=== PATIENT | female | born 1980 | race Caucasian/White ===

== ENCOUNTER 2022-11-15 08:49 | Emergency (ER) | payer OTHER, SELFPAY ==
--- NOTE | ~2022-11-15 | XR_ITS ---
EXAMINATION: XR wrist LT min 3V DATE: 11/15/2022 09:15 INDICATION: Radial sided left wrist pain post fall TECHNIQUE: Posteroanterior, ulnar deviation, oblique, and lateral views of the left wrist were obtain ed. COMPARISON: none FINDINGS: Bone alignment is normal. No fracture. 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 Soft tissues are unremarkable. IMPRESSION: 1. 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 No acute osseous abnormality. Reviewed, dictated and finalized at location B. IMPRESSION: 1. 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 No acute osseou s abnormality.
[2022-11-15 08:57] VITALS: BP 141/87; PULSE 94; RESP 16; TEMP 36.2; O2SAT 99
--- NOTE | 2022-11-15 09:26 | ED.UPPEXIN ---
HPI - Extremity Injury (Upper) General Chief Complaint: Extremity Injury, Upper Stated Complaint: left wrist injury Time Seen by Provider: 11/15/22 09:01 History of Present Illness HPI narrative: Patient slipped and fall will try to get into bed last night, she has some pain to her left wrist, her did put a Michael wrap around it. She has no pain or injury anywhere else. Related Data Allergies Allergy/AdvReac Type Severity Reaction Status Date / Time No Known Allergies Allergy Verified 11/15/22 08:50 Review of Systems Review of Systems: M/S: Left wrist pain SKIN: No abrasions NEURO: Occasional tingling through the fingertips Exam Narrative: EXAMINATION OF ORGAN SYSTEMS/BODY AREAS: Constitutional: Vital signs per nursing GENERAL:[No acute distress, non-toxic appearing.] HEAD: Normal with no signs of head trauma. EYES: EOMI, conjunctiva normal ENT: Hearing grossly intact LUNGS: Nonlabored breathing. HEART: [Regular rate and rhythm] EXT: Normal range of motion with extension and flexion and deviation of wrists, normal lumpia wrapper maker strength, scissoring, ab/dduction of fingers, wrist. Tenderness palpation primarily in the proximal wrist, no snuffbox tenderness, normal radial pulses.. SKIN: [No rashes or lesions.] NEURO: [Alert and oriented x 3. No gross focal sensory or strength deficits.] PSYCH: Normal affect Course Vital Signs Vital signs: Vital Signs Temperature 97.1 F L 11/15/22 08:57 Pulse Rate 94 11/15/22 08:57 Respiratory Rate 16 11/15/22 08:57 Blood Pressure 141/87 H 11/15/22 08:57 Pulse Oximetry 99 11/15/22 08:57 Oxygen Delivery Room Air 11/15/22 08:57 Temperature 97.1 F L 11/15/22 08:57 Pulse Rate 94 11/15/22 08:57 Respiratory Rate 16 11/15/22 08:57 Blood Pressure 141/87 H 11/15/22 08:57 Pulse Oximetry 99 11/15/22 08:57 Oxygen Delivery Room Air 11/15/22 08:57 MDM - Extremity Injury (Upper) MDM Narrative Medical decision making narrative: 42-year-old female presenting with left wrist pain after injury, range of motion and neurovascularly intact, no snuffbox tenderness, only some tenderness to the proximal wrist. No deformity, I have low concern for fracture, x-ray obtained here confirms no fracture. Patient stable for discharge with follow-up to her doctor or orthopedics if not improved or any new or concerning symptoms, patient agreeable with this plan. Discharge Plan Discharge Clinical Impression: Sprain and strain of wrist Patient Disposition: Home, Self-Care Condition: Stable Instructions: Antibiotic Form, Wrist Sprain (ED) Additional Instructions: Please follow up with the orthopedic surgeon in 2 days if you are still having persistent pain or other symptoms; you can always return if your symptoms worsen Follow-up/Referrals: Rosendo Rodríguez MD [Physician] - 2 Days PHYSICIAN,LOAN OFFICER [Non-Staff] -
== END 2022-11-15 09:52 | disposition home or self-care (01) ==
LOC: ANHED 09:28
PROVIDERS: Emergency Provider Emergency Medicine
DX: S63.502A Unspecified sprain of left wrist, initial encounter (principal); S66.912A Strain of unspecified muscle, fascia and tendon at wrist and hand level, left hand, initial encounter; W06.XXXA Fall from bed, initial encounter
CPT/HCPCS: 73110; 99283

== ENCOUNTER 2024-06-13 09:37 | Emergency (ER) | payer BC, OTHER, SELFPAY ==
--- NOTE | 2024-06-13 09:42 | ED_ITS ---
HPI - Skin/Abscess/Foreign Bdy General Chief complaint: Skin/Abscess/Foreign Body Stated complaint: Rash On Body Time Seen by Provider: 06/13/24 09:42 Source: patient Mode of arrival: ambulatory Limitations: no limitations History of Present Illness HPI narrative: Madyson is a 44-year-old female patient presenting to the clinic today with complaints a rash on her body. She reports that she 1st noticed this rash Foy nday. Has recently changed body wash however this was after the rash occurred. Denies any other environmental changes, foods, or medications. She reports that she has been having increased stress. Denies any shortness of breath, chest pain, difficulty breathing, drooling, tongue swelling, or difficulty swallowing. Rash is red and raised and itchy on her arms and legs. She has tried Benadryl and some hydrocortisone cream and this has helped relieve some of the itching. Related Data Home Medications Medication Instructions Recorded Confirmed acyclovir 5 % topical cream 1 applic topical ONCE 11/21/22 04/04/23 (Zovirax) aspirin 81 mg tablet,delayed 81 mg PO DAILY 11/21/22 04/04/23 release (Adult Aspirin Regimen) atorvastatin 40 mg tablet (Lipitor) 40 mg PO DAILY 11/21/22 04/04/23 buprenorphine 8 mg-naloxone 2 mg 1 tablet sublingual TID 11/21/22 04/04/23 sublingual tablet buspirone 15 mg tablet 15 mg PO DAILY 11/21/22 04/04/23 divalproex 250 mg tablet,delayed 250 mg PO Q12H 11/21/22 04/04/23 release duloxetine 60 mg capsule,delayed 60 mg PO DAILY 11/21/22 04/04/23 release escitalopram oxalate 10 mg tablet 10 mg PO DAILY 11/21/22 04/04/23 (Lexapro) eszopiclone 3 mg tablet (Lunesta) 3 mg PO QHS 11/21/22 04/04/23 fexofenadine 180 mg tablet 180 mg PO DAILY 11/21/22 04/04/23 (Robyn Allergy) folic acid 1 mg tablet 1 mg PO DAILY 11/21/22 04/04/23 levothyroxine 137 mcg tablet 137 mcg PO DAILY 11/21/22 04/04/23 (Synthroid) mometasone 50 mcg/actuation nasal 2 spray intranasal DAILY PRN 11/21/22 04/04/23 spray mv-mn-folic 200 mcg-vit K 15 cap PO BID 11/21/22 04/04/23 mcg-lutein 5 mg-zeaxanthin 1 mg capsule (PreserVision AREDS 2 Plus Multivit) nebivolol 5 mg tablet (Bystolic) 5 mg PO DAILY 11/21/22 04/04/23 omeprazole 20 mg capsule,delayed 20 mg PO DAILY 11/21/22 04/04/23 release pilocarpine HCl 5 mg tablet 5 mg PO TID 11/21/22 04/04/23 pregabalin 150 mg capsule (Lyrica) 150 mg PO BID 11/21/22 04/04/23 prochlorperazine maleate 5 mg 5 mg PO Q8H PRN 11/21/22 04/04/23 tablet sumatriptan succinate 100 mg tablet See Rx Instructions PO .COMPLEX 11/21/22 04/04/23 topiramate 50 mg tablet (Topamax) 50 mg PO TID 11/21/22 04/04/23 tretinoin 0.01 % topical gel 1 applic topical QHS 11/21/22 04/04/23 (Retin-A) vitamin E (dl, acetate) 450 mg 450 mg PO DAILY 11/21/22 04/04/23 (1,000 unit) capsule Allergies Allergy/AdvReac Type Severity Reaction Status Date / Time No Known Allergies Allergy Verified 04/04/23 11:45 Review of Systems Review of Systems: Pertinent positives per HPI. Patient denies any fever, chills, headache, visual changes, dizziness, cough, runny nose, sore throat, shortness of breath, chest pain, palpitations, nausea, vomiting, diarrhea, constipation, abdominal pain, or any urinary issues. 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 There is no relevant family history pertinent to the patient complaint. Exam Narrative: General: Well-developed, morbidly obese, in no apparent distress Head: Normocephalic, atraumatic. Cardio: Regular rate and rhythm, s1 and s2 normal, no murmur appreciated. Resp: Clear to auscultation bilaterally, no rhonchi, rales, wheezing or rubs. Integumentary: [place], warm, and dry, red raised itchy hives like rash to bilateral arms and legs Course Course Emergency Course: Portions of this record may have been created with voice recognition software. Level of Care: Express Care Visit Vital Signs Vital signs: Vital Signs Temperature 36.3 C L 06/13/24 09:50 Pulse Rate 73 06/13/24 09:50 Respiratory Rate 16 06/13/24 09:50 Blood Pressure 124/82 06/13/24 09:50 Pulse Oximetry 96 06/13/24 09:50 Oxygen Delivery Room Air 06/13/24 09:50 Temperature 36.3 C L 06/13/24 09:59 Pulse Rate 73 06/13/24 09:59 Respiratory Rate 16 06/13/24 09:59 Blood Pressure 124/82 06/13/24 09:59 Pulse Oximetry 96 06/13/24 09:59 Oxygen Delivery Room Air 06/13/24 09:59 Vital signs reviewed MDM - Skin/Abscess/Foreign Bdy MDM Narrative Medical decision making narrative: At the time of visit patient is resting comfortably on the exam table. Patient appears to be nontoxic. Plan: I suspect patient has hives. She is not in any respiratory distress and denies chest pain. Prescription for prednisone taper dose and Pepcid was sent to the pharmacy. Supportive measures were discussed with the patient and they voiced understanding discharge instructions and agrees to treatment plan. Return precautions reviewed Differential Diagnosis Differential diagnosis: Likely abscess of skin or subcutaneous tissue, viral exanthem, dermatophytosis, urticaria, herpes zoster, allergic reaction to drug, cellulitis, eczema, insect bites, impetigo and contact dermatitis Discharge Plan Discharge Clinical Impression: Acute urticaria Patient Disposition: Home, Self-Care Condition: Stable Instructions: Antibiotic Form, Urticaria (ED) Additional Instructions: Take prednisone and Pepcid as directed Avoid any allergy triggers Avoid hot showers Avoid scratching as this can cause a secondary infection May take benadryl 25-50mg every 6 hours as needed for itching. Follow up with your PCP in 3-5 days if symptoms persist or sooner if they worsen Go to the Emergency Room if symptoms worsen- fever, rash spreading with treatment, shortness of breath, tongue swelling, drooling, or chest pain Prescriptions: New prednisone 10 mg tablet 10 mg PO DAILY Qty: 30 0RF Rx Instructions: 60mg po daily on day 1, 40mg po daily on days 2-4, 30mg po daily on days 5-6, 20mg po daily on days 7-8, 10mg po daily on days 9-10 famotidine [Pepcid] 40 mg tablet 40 mg PO DAILY 10 Days Qty: 10 0RF No Action levothyroxine [Synthroid] 137 mcg tablet 137 mcg PO DAILY omeprazole 20 mg capsule,delayed release(DR/EC) 20 mg PO DAILY mometasone 50 mcg/actuation spray,non-aerosol 2 spray intranasal DAILY PRN Rx Instructions: administer into each nostril topiramate [Topamax] 50 mg tablet 50 mg PO TID sumatriptan succinate 100 mg tablet See Rx Instructions PO .COMPLEX Rx Instructions: take 1 tab at onset of headache; if no relief, may repeat 1 tab after at least 2 hrs; max = 2 tabs/24 hrs PO nebivolol [Bystolic] 5 mg tablet 5 mg PO DAILY fexofenadine [Robyn Allergy] 180 mg tablet 180 mg PO DAILY atorvastatin [Lipitor] 40 mg tablet 40 mg PO DAILY pregabalin [Lyrica] 150 mg capsule 150 mg PO BID aspirin [Adult Aspirin Regimen] 81 mg tablet,delayed release (DR/EC) 81 mg PO DAILY eszopiclone [Lunesta] 3 mg tablet 3 mg PO QHS buprenorphine-naloxone 8-2 mg tablet, sublingual 1 tablet sublingual TID pilocarpine HCl 5 mg tablet 5 mg PO TID acyclovir [Zovirax] 5 % cream 1 applic topical ONCE tretinoin [Retin-A] 0.01 % gel 1 applic topical QHS PreserVision AREDS 2 Plus MV 200 mcg-15 mcg- 5 mg-1 mg capsule PO BID vitamin E (dl, acetate) 450 mg (1,000 unit) capsule 450 mg PO DAILY folic acid 1 mg tablet 1 mg PO DAILY divalproex 250 mg tablet,delayed release (DR/EC) 250 mg PO Q12H prochlorperazine maleate 5 mg tablet 5 mg PO Q8H PRN escitalopram oxalate [Lexapro] 10 mg tablet 10 mg PO DAILY duloxetine 60 mg capsule,delayed release(DR/EC) 60 mg PO DAILY buspirone 15 mg tablet 15 mg PO DAILY meloxicam 15 mg tablet See Rx Instructions .ROUTE .COMPLEX Qty: 90 2RF Dose Instruction: TAKE 1 TABLET BY MOUTH DAILY NEEDED FOR PAIN Rx Instructions: TAKE 1 TABLET BY MOUTH DAILY NEEDED FOR PAIN Follow-up/Referrals: PHYSICIAN,COMMERCIAL ANNOUNCER [Primary Care Provider] - Time of Disposition: 10:00 Quality NIHSS Nursing Documentation ED NIHSS nursing documentation: reviewed/agree
[2024-06-13 09:50] VITALS: BP 124/82; PULSE 73; RESP 16; TEMP 36.3; O2SAT 96
[2024-06-13 09:59] VITALS: BP 124/82; PULSE 73; RESP 16; TEMP 36.3; O2SAT 96
== END 2024-06-13 10:10 | disposition home or self-care (01) ==
PROVIDERS: Emergency Provider Nurse Practitioner Family
DX: L50.9 Urticaria, unspecified (principal)
CPT/HCPCS: 99213; G0463

== ENCOUNTER 2024-06-18 18:43 | Emergency (ER) | payer BC, OTHER, SELFPAY ==
--- NOTE | ~2024-06-18 | XR_ITS ---
XR forearm RT 2V Ordering provider: Donte Decker MD History: . pain swelling . Comparison: None. FINDINGS: BONES: No acute fracture or dislocation. JOINT SPACES: Normal. SOFT TISSUES: Normal. IMPRESSION: No acute osseous abnormality right forearm. Reviewed, dictated and finalized at location A. ERCIAL CRABBER
--- NOTE | ~2024-06-18 | XR_ITS ---
XR shoulder RT min 2V Ordering provider: Donte Decker MD History: . pain . Comparison: None. FINDINGS: BONES: No acute fracture or dislocation. JOINT SPACES: The acromioclavicular joint is normal. The glenohumeral joint is normal. SOFT TISSUES: Normal. IMPRESSION: No acute osseous abnormality right shoulder. Reviewed, dictated and finalized at location A. GAGE PROFESSIONAL
--- NOTE | ~2024-06-18 | US_ITS ---
RIGHT UPPER EXTREMITY VENOUS ULTRASOUND Ordering provider: Donte Decker MD History: . pain swelling eval for dvt . Comparison: None. FINDINGS: --JUGULAR: Patent and free of thrombus. Normal compressibility, phasic flow and augmentation. --SUBCLAVIAN: Patent and free of thrombus. Normal compressibility, phasic flow and augmentation. --AXILLARY: Patent and free of thrombus. Normal compressibility, phasic flow and augmentation. --BRACHIAL: Patent and free of thrombus. Normal compressibility, phasic flow and augmentation. --CEPHALIC: Patent and free of thrombus. Normal compressibility, phasic flow and augmentation. --BASILIC: Patent and free of thrombus. Normal compressibility, phasic flow and augmentation. --RADIAL: Patent and free of thrombus. Normal compressibility, phasic flow and augmentation. --ULNAR: Patent and free of thrombus. Normal compressibility, phasic flow and augmentation. IMPRESSION: Negative right upper extremity venous US. No deep vein thrombosis. Reviewed, dictated and finalized at location A. NESS OPERATIONS CONSULTANT
[2024-06-18 19:04] VITALS: BP 132/80; PULSE 92; RESP 17; TEMP 36.4; O2SAT 95
[2024-06-18] MEDS: KETOROLAC 30 MG/ML VIAL (*BKC) IM (22:00)
--- NOTE | 2024-06-18 22:19 | ED_ITS ---
HPI - General Adult General Chief complaint: Extremity Injury, Upper Stated complaint: R arm pain unknown injury Time Seen by Provider: 06/18/24 21:04 History of Present Illness HPI narrative: Patient 44-year-old female who presents emergency department chief complaint of right forearm pain. Patient reports started having pain yesterday reports that it is distal forearm just proximal to the wrist the patient reports no trauma reports the pain is worse with movement and worse with palpation. The patient reports no redness does feel like it may be swollen in that area Related Data Home Medications Medication Instructions Recorded Confirmed acyclovir 5 % topical cream 1 applic topical ONCE 11/21/22 06/13/24 (Zovirax) aspirin 81 mg tablet,delayed 81 mg PO DAILY 11/21/22 06/13/24 release (Adult Aspirin Regimen) atorvastatin 40 mg tablet (Lipitor) 40 mg PO DAILY 11/21/22 06/13/24 buprenorphine 8 mg-naloxone 2 mg 1 tablet sublingual TID 11/21/22 06/13/24 sublingual tablet buspirone 15 mg tablet 15 mg PO DAILY 11/21/22 06/13/24 divalproex 250 mg tablet,delayed 250 mg PO Q12H 11/21/22 06/13/24 release duloxetine 60 mg capsule,delayed 60 mg PO DAILY 11/21/22 06/13/24 release eszopiclone 3 mg tablet (Lunesta) 3 mg PO QHS 11/21/22 06/13/24 fexofenadine 180 mg tablet 180 mg PO DAILY 11/21/22 06/13/24 (Robyn Allergy) levothyroxine 137 mcg tablet 137 mcg PO DAILY 11/21/22 06/13/24 (Synthroid) mometasone 50 mcg/actuation nasal 2 spray intranasal DAILY PRN 11/21/22 06/13/24 spray Shortness Of Breath Or Wheezing mv-mn-folic 200 mcg-vit K 15 1 cap PO BID 11/21/22 06/13/24 mcg-lutein 5 mg-zeaxanthin 1 mg capsule (PreserVision AREDS 2 Plus Multivit) nebivolol 5 mg tablet (Bystolic) 5 mg PO DAILY 11/21/22 06/13/24 omeprazole 20 mg capsule,delayed 20 mg PO DAILY 11/21/22 06/13/24 release pilocarpine HCl 5 mg tablet 5 mg PO TID 11/21/22 06/13/24 pregabalin 150 mg capsule (Lyrica) 150 mg PO BID 11/21/22 06/13/24 prochlorperazine maleate 5 mg 5 mg PO Q8H PRN Nausea And Vomiting 11/21/22 06/13/24 tablet sumatriptan succinate 100 mg tablet See Rx Instructions PO .COMPLEX 11/21/22 06/13/24 topiramate 50 mg tablet (Topamax) 50 mg PO TID 11/21/22 06/13/24 tretinoin 0.01 % topical gel 1 applic topical QHS 11/21/22 06/13/24 (Retin-A) vitamin E (dl, acetate) 450 mg 450 mg PO DAILY 11/21/22 06/13/24 (1,000 unit) capsule atogepant 60 mg tablet (Qulipta) mg 06/13/24 cyclobenzaprine 10 mg tablet 10 mg DIRECTED 06/13/24 06/13/24 erenumab-aooe 70 mg/mL 70 mg subcut DIRECTED 06/13/24 06/13/24 subcutaneous auto-injector (Aimovig Autoinjector) hydroxyzine pamoate 50 mg capsule 50 mg DIRECTED 06/13/24 06/13/24 trazodone 100 mg tablet 100 mg DIRECTED 06/13/24 06/13/24 Allergies Allergy/AdvReac Type Severity Reaction Status Date / Time No Known Allergies Allergy Verified 06/18/24 20:57 Review of Systems Review of Systems: A 10 system review of systems was completed on the patient and is negative except for what is stated in the HPI. Nursing and ancillary documentation was reviewed. 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 HEAD: Normocephalic, atraumatic. EYES: PERRLA and EOMI. ENT: Nares clear, no rhinorrhea or epistaxis. Mucous membranes moist. NECK: Supple. CHEST: Clear to auscultation. No respiratory distress. HEART: Regular rate and rhythm. No murmur heard. Normal peripheral pulses. ABDOMEN: Soft, nontender, nondistended, normal active bowel sounds. EXTREMITIES: Normal range of motion there is tenderness to palpation the right forearm. No edema. SKIN: Warm, dry, no rash. NEURO: No focal deficits. Alert and oriented x3. PSYCH: Normal mood and affect. Course Vital Signs Vital signs: Vital Signs Temperature 36.4 C 06/18/24 19:04 Pulse Rate 92 06/18/24 19:04 Respiratory Rate 17 06/18/24 19:04 Blood Pressure 132/80 06/18/24 19:04 Pulse Oximetry 95 06/18/24 19:04 Temperature 36.4 C 06/18/24 19:04 Pulse Rate 92 06/18/24 19:04 Respiratory Rate 17 06/18/24 19:04 Blood Pressure 132/80 06/18/24 19:04 Pulse Oximetry 95 06/18/24 19:04 Medical Decision Making [facility] Narrative Medical decision making narrative: Differential diagnosis includes DVT, fracture Plain film x-ray showed no evidence of fracture or evidence of acute abnormality Ultrasound of the upper extremity showed no evidence of T Vital Signs Vital Signs: Vital Signs Temperature 36.4 C 06/18/24 19:04 Pulse Rate 92 06/18/24 19:04 Respiratory Rate 17 06/18/24 19:04 Blood Pressure 132/80 06/18/24 19:04 Pulse Oximetry 95 06/18/24 19:04 Temperature 36.4 C 06/18/24 19:04 Pulse Rate 92 06/18/24 19:04 Respiratory Rate 17 06/18/24 19:04 Blood Pressure 132/80 06/18/24 19:04 Pulse Oximetry 95 06/18/24 19:04 Discharge Plan Discharge Clinical Impression: Pain in right forearm Patient Disposition: Home, Self-Care Condition: Stable Instructions: Antibiotic Form, Arm Pain (ED) Prescriptions: New meloxicam 15 mg tablet 15 mg PO DAILY Qty: 14 0RF No Action prednisone 10 mg tablet 10 mg PO DAILY Qty: 30 0RF Rx Instructions: 60mg po daily on day 1, 40mg po daily on days 2-4, 30mg po daily on days 5-6, 20mg po daily on days 7-8, 10mg po daily on days 9-10 famotidine [Pepcid] 40 mg tablet 40 mg PO DAILY 10 Days Qty: 10 0RF cyclobenzaprine 10 mg tablet 10 mg DIRECTED hydroxyzine pamoate 50 mg capsule 50 mg DIRECTED trazodone 100 mg tablet 100 mg DIRECTED Aimovig Autoinjector 70 mg/mL auto-injector 70 mg SUBCUT DIRECTED Qulipta 60 mg tablet levothyroxine [Synthroid] 137 mcg tablet 137 mcg PO DAILY omeprazole 20 mg capsule,delayed release(DR/EC) 20 mg PO DAILY mometasone 50 mcg/actuation spray,non-aerosol 2 spray intranasal DAILY PRN (Reason: Shortness Of Breath Or Wheezing) Rx Instructions: administer into each nostril topiramate [Topamax] 50 mg tablet 50 mg PO TID sumatriptan succinate 100 mg tablet See Rx Instructions PO .COMPLEX Rx Instructions: take 1 tab at onset of headache; if no relief, may repeat 1 tab after at least 2 hrs; max = 2 tabs/24 hrs PO nebivolol [Bystolic] 5 mg tablet 5 mg PO DAILY fexofenadine [Robyn Allergy] 180 mg tablet 180 mg PO DAILY atorvastatin [Lipitor] 40 mg tablet 40 mg PO DAILY pregabalin [Lyrica] 150 mg capsule 150 mg PO BID aspirin [Adult Aspirin Regimen] 81 mg tablet,delayed release (DR/EC) 81 mg PO DAILY eszopiclone [Lunesta] 3 mg tablet 3 mg PO QHS buprenorphine-naloxone 8-2 mg tablet, sublingual 1 tablet sublingual TID pilocarpine HCl 5 mg tablet 5 mg PO TID acyclovir [Zovirax] 5 % cream 1 applic topical ONCE tretinoin [Retin-A] 0.01 % gel 1 applic topical QHS PreserVision AREDS 2 Plus MV 200 mcg-15 mcg- 5 mg-1 mg capsule 1 cap PO BID vitamin E (dl, acetate) 450 mg (1,000 unit) capsule 450 mg PO DAILY divalproex 250 mg tablet,delayed release (DR/EC) 250 mg PO Q12H prochlorperazine maleate 5 mg tablet 5 mg PO Q8H PRN (Reason: Nausea And Vomiting) duloxetine 60 mg capsule,delayed release(DR/EC) 60 mg PO DAILY buspirone 15 mg tablet 15 mg PO DAILY meloxicam 15 mg tablet See Rx Instructions .ROUTE .COMPLEX Qty: 90 2RF Dose Instruction: TAKE 1 TABLET BY MOUTH DAILY NEEDED FOR PAIN Rx Instructions: TAKE 1 TABLET BY MOUTH DAILY NEEDED FOR PAIN Follow-up/Referrals: PHYSICIAN,FLORAL DESIGN TEACHER [Primary Care Provider] - Toño Cortes MD [Physician] - Time of Disposition: 22:23
[2024-06-18] MEDS: MELOXICAM 7.5 MG TABLET 15 MG PO (22:52)
[2024-06-18 22:54] VITALS: BP 142/89; PULSE 83; RESP 16; TEMP 36.5; O2SAT 98
== END 2024-06-18 22:55 | disposition home or self-care (01) ==
PROVIDERS: Emergency Provider Emergency Medicine
DX: M79.631 Pain in right forearm (principal); Z90.49 Acquired absence of other specified parts of digestive tract; Z98.84 Bariatric surgery status; Z79.899 Other long term (current) drug therapy
CPT/HCPCS: 73030; 73090; 93971; 96372; 99284; A9270; J1885

== ENCOUNTER 2024-09-12 08:13 | Outpatient (CLI) | payer BC, OTHER, SELFPAY | END 2024-09-12 08:14 | disposition home or self-care (01) | LOC: ANHIMG 08:20 | PROVIDERS: Visit Provider Internal Medicine | DX: M79.642 Pain in left hand (principal); M79.641 Pain in right hand; M35.00 Sjogren syndrome, unspecified | CPT/HCPCS: 73130 ==

== ENCOUNTER 2024-09-26 05:56 | Emergency (ER) | payer BC, SELFPAY ==
--- NOTE | ~2024-09-26 | CT_ITS ---
CT of the Abdomen and Pelvis: Indication: Abdominal pain Technique: 2.5 mm axial scans were obtained through the abdomen and pelvis following intravenous adm inistration of 100 cc of Omnipaque 350. Dose reduction technique was used on this scan by utilizing a utomated exposure control and iterative reconstruction technique. The dose-length product (DLP) was 1 482.88 mGy-cm. Findings: Scans through the lung bases are unremarkable. Intrahepatic and extra hepatic biliary dilatation may be related to prior cholecystectomy. No hepatic parenchymal mass evident. The spleen, pancreas, adrenals and kidneys are within normal limits. No e vidence of aortic aneurysm. No lymphadenopathy. No bowel obstruction or bowel wall thickening. There is evidence of prior bariatric surgery or possib le fundoplication. There is no evidence to suggest acute appendicitis. Small ventral fat-containing h ernia present superior to the umbilicus. Small fat-containing umbilical hernia also present. Images through the pelvis were performed. Urinary bladder unremarkable. No adnexal mass seen. Impression: Small ventral fat-containing hernias, as above. Intrahepatic and extra hepatic biliary dilatation is likely related to prior cholecystectomy. Correla te clinically. Reviewed, dictated and finalized at [facility]. Impression: Small ventral fat-containing hernias, as above. Intrahepatic and extra hepatic biliary dilatation is likely related to prior ch olecystectomy. Correlate clinically.
--- OUTSIDE RECORDS SUMMARY | 2024-09-26 05:58 | XMS_ITS | Encounter Summary ---
Author Organization [facility] Address [address] [place] [id number] Care Team Providers Care Cook Chief Name Role Phone Robert García MD Primary Care Provider + Encounter Details Date Type Department Care Team (Late Contact Info) Description 01/22/2024 [place] Message Enc [facility] - [address], [address] [place] [phone] [employer], [facility] Provider prescription Social History Tobacco Use Types Packs/Day Years Used Date Smoking Tobacco: Never Smokeless Tobacco: Never Alcohol Use Standard Drinks/Week Comments Never 0 (1 standard drink = 0.6 oz pur e alcohol) AUDIT-C Answer Date Recorded Q1: How often do you have a drink containing alc ohol? 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 Gender Identity Not on file Sexual Orientation Not on file documented as of this encounter Plan of Treatment Upcoming Encounters Date Type Department Care Team (Late Contact Info) Description 12/03/2024 10:00 AM CDT Office Visit [facility] - [address], [address] [place] [phone] Abiodun Red MD [address] [place] [address] documented as of this encounter Visit Diagnoses Not on filedocumented in this encounter Additional Health Concerns Assessment Noted Time PHQ-9 Depression Total Score: 7 06/02/20 22 9:57 AM REGIONAL EXTENSION SERVICE SPECIALIST documented as of this encounter Care Teams Cook Chief Relationship Specialty Start Date End Date Robert García MD 3 [facility] [place] [address] [place] [phone] PCP - General 08/17/23 documented as of this encounter
--- OUTSIDE RECORDS SUMMARY | 2024-09-26 05:58 | XMS_ITS | Data Portability ---
Author Organization [place] - [facility] [place] [facility] Address [address] [place] [address] Care Team Providers Care Process Development Engineer Name Role Phone TIMBO Primary Care Provider [phone] Assessment Encounter Date Assessment Date Assessment LastModified by Organization Details LastModified Time 02/06/2023 02/06/2023 This document was scribed by FARAZ Hayes Not available 02/06/2023 18:34:10 06/04/2023 06/04/2023 Patient Examined by FARAZ Hayes, Also Documentation reviewed and approved by supervising physician sophie Not available 06/04/2023 10:15:45 12/06/2023 12/06/2023 Patient Examined by FARAZ Hayes, Also Documentation reviewed and approved by supervising physician sharad Not available 10/14/2023 16:03:12 Plan of Treatment Reminders Order Date Submit Date Provider Last Modified By Organization Details Last Modified Time Details Appointments ESTABLISH ED PATIENT DETAILED 2024 11:00A M Sixto Mcintyre i, MD Not available Not available Not available Lab None recorded. Referral None recorded. Procedures None recorded. Surgeries None recorded. Imaging None recorded. Medication Orders Zetia 10 mg tablet 2022 023 [facility], [address] [place] [address], [id number], 06/04/2023 10:27:07 Lipitor 80 mg tablet 2022 023 [facility] #[id number], [address], [place], [id number], 06/04/2023 10:27:11 Bystolic 5 mg tablet 2022 023 [facility], [address] [place] [address], [id number], 06/04/2023 10:27:08 Lasix 40 mg tablet 2022 023 [facility], [address] [place] [address], [id number], 06/04/2023 10:27:08 Lasix 20 mg tablet 2022 023 [facility] #[id number], [address], [place], [phone], 02/06/2023 18:37:03 Patient TargetsNo targets recorded. Patient Instructions Encounter Date Encounter Id Patient Instructions Last Modified By Organization Details Last Modified Time 06/04/2023 [id number] Low cholesterol diet advised Low sodium diet advised. eyassin Not available 06/04/2023 10:26:59 12/06/2023 [id number] Low cholesterol diet advised Low sodium diet advised. eyassin Not available 12/06/2023 10:38:58 Reason for Referral None Reported. Results Created Date Observation Date Name Description Value Unit Range Abnormal Flag Note LastModifiedBy Organization Detail LastModifiedTime 02/08/2002/06/2023 elect julianne lozagr am No observ ation record ed. [email or web address] Not Available 2022 11:05:46 05/03/2003/24/2023 fabby can cardi olite stres s test (PROC ) No observ ation record ed. [email or web address] Not Available 2022 14:51:42 07/27/1907/23/2023 , echo ardio gram No observ ation record ed. est [facility] [address], [place], [address], 08/05/2023 14:55:01 12/11/19 24 12/06/2023 elect rocar diogr am No observ ation record ed. [email or web address] Not Available 2023 18:13:40 06/03/20 24 06/03/2024 elect julianne mcmahon am No observ ation record ed. [email or web address] Not Available 2023 18:04:05 Result Notes None recorded. Problems Name Problem SNOMED Code Status Onset Date Resolution Date Notes Provider Name and Address Organization Details Recorded Time Edema 368088960 Active 2022 Cooper Mesto null, [place] - [facility] 3 12:39:45 Atypical chest pain 329622831 Active 2022 Cooper [place] null, [place] - [facility] 3 12:39:54 Dyspnea on exertion 29615930 Active 2022 Cooper [place] null, [place] - [facility] 3 12:40:00 Dyslipidemia 328730027 Active 2023 Cooper [place], [place] - [facility] 4 19:58:53 Essential hypertension 92331330 Active 2023 Cooper [place], [place] - [facility] 4 19:59:11 History of cerebrovascula r accident 027360297 Active 2023 Cooper [place] null, [place] - [facility] 4 19:59:27 Problem Notes None recorded. Procedures Surgical History Date Name Laterality Status Provider Name and Address Organization Details Recorded Time operation on stomach completed Kenneth Messally [place] - [facility] 05/25/2023 12:52:55 Imaging Results Imaging Date Name Status LastModified by Organization Details LastModified Time 02/06/2023 electrocardiogram completed Informa tion not available 02/07/2023 11:05:46 03/24/2023 lexiscan cardiolite stress test (PROC) completed Information not available 05/03/2023 14:51:42 07/23/2023 , echocardiogram completed [facility] [address], [place], [address], 08/05/2023 14:55:01 12/06/2023 electrocardiogram completed [email or web address] Informa tion not available 12/18/2023 18:13:40 06/03/2024 electrocardiogram completed Informa tion not available 06/03/2024 18:04:05 Procedure Notes None recorded. Medical Equipment None Reported. Allergies No known drug allergies Medications Name Sig Start Date Stop Date Status Note LastModified by Organization Details LastModified Time cyclobenzap rine 10 mg tablet TAKE 1 TABLET BY MOUTH THREE TIMES DAILY NEEDED FOR SPASM active Not Available Not Available No t Available furosemide 40 mg tablet TAKE 1 TABLET BY MOUTH EVERY DAY active Not Available Not Available No t Available atorvastati n 40 mg tablet 05/25 completed Not Available Not Available Not Available levothyroxi ne 137 mcg tablet TAKE 1 TABLET BY MOUTH EVERY MORNING active Not Available Not Available No t Available pilocarpine 5 mg tablet TAKE 1 TABLET BY MOUTH THREE TIMES DAILY active Not Available Not Available No t Available prednisone 10 mg tablet TAKE 1 TABLET BY MOUTH TWICE DAILY FOR 10 DAYS active Not Available Not Available No t Available doxycycline hyclate 100 mg capsule TAKE 1 CAPSULE BY MOUTH TWICE DAILY WITH FOOD active Not Available Not Available No t Available divalproex 250 mg tablet,neeta yed release 05/25 completed Not Available Not Available Not Available trazodone 50 mg tablet TAKE 1 TABLET BY MOUTH AT BEDTIME FOR 1 WEEK 06/02 completed Not Available Not Available Not Available azithromyci n 250 mg tablet 10/13 completed Not Available Not Available Not Available sumatriptan 100 mg tablet TAKE 1 TABLET BY MOUTH TWICE DAILY NEEDED FOR MIGRAINE. TAKE 1 TABLET BY MOUTH AT ONSET AND 1 TABLET 2 HOURS LATER. MAX OF 2 TABLETS IN 24 HOURS active Not Available Not Available No t Available prochlorper azine maleate 5 mg tablet active Not Available Not Available No t Available Lipitor 80 mg tablet Take 1 tablet every day by oral route. 2024 active Not Available Not Available Not Avai lable meloxicam 15 mg tablet TAKE 1 TABLET BY MOUTH DAILY active Not Available Not Available No t Available famotidine 40 mg tablet TAKE 1 TABLET BY MOUTH DAILY FOR 10 DAYS active Not Available Not Available No t Available methylpredn isolone 4 mg tablet active Not Available Not Available No t Available hydroxyzine pamoate 50 mg capsule TAKE 1 CAPSULE BY MOUTH FOUR TIMES DAILY NEEDED FOR ANXIETY active Not Available Not Available No t Available phentermine 37.5 mg tablet TAKE 1 TABLET BY MOUTH DAILY active Not Available Not Available No t Available aspirin 81 mg tablet,neeta yed release active Not Available Not Available Not Available phentermine 30 mg capsule TAKE 1 CAPSULE BY MOUTH EVERY DAY active Not Available Not Available No t Available ketorolac 10 mg tablet TAKE 1 TABLET BY MOUTH EVERY 6 HOURS FOR 2 DAYS NEEDED FOR PAIN active Not Available Not Available No t Available propranolol 10 mg tablet active Not Available Not Available Not Available amitriptyli ne 25 mg tablet active Not Available Not Available Not Available prednisolon e acetate 1 % eye drops,suspe nsion active Not Available Not Available Not Available Vanicream topical active Not Available Not Available Not Available trazodone 100 mg tablet TAKE 1 TABLET BY MOUTH AT BEDTIME AFTER 50 MG DOSE COMPLETE active Not Available Not Available No t Available cyanocobala min (vit B-12) 1,000 mcg/mL injection solution active Not Available Not Available Not Available tacrolimus 0.1 % topical ointment APPLY TO AFFECTED AREAS OF THE FACE ONE TO TWO TIMES DAILY UNTIL CLEAR. THEN USE NEEDED FOR FLARES. active Not Available Not Available No t Available lidocaine 5 % topical patch APPLY 1 PATCH TO THE AFFECTED AREA DIRECTED. NO LONGER THAN 12 HOURS PER DAY active Not Available Not Available No t Available omeprazole 20 mg capsule,del ayed release TAKE 1 CAPSULE BY MOUTH EVERY DAY active Not Available Not Available No t Available mupirocin 2 % topical ointment active Not Available Not Available Not Available zolpidem 5 mg tablet active Not Available Not Available No t Available furosemide 20 mg tablet TAKE 1 TABLET BY MOUTH EVERY DAY active Not Available Not Available No t Available clobetasol 0.05 % topical ointment APPLY TO THE AFFECTED AREA OF HANDS 1 TO 2 TIMES DAILY IN ROTATION WITH MUPIROCIN FOR NO MORE THAN 2 WEEKS. TAKE SMALL BREAK AND RESUME. active Not Available Not Available No t Available zolpidem 10 mg tablet active Not Available Not Available No t Available methylpredn isolone 4 mg tablets in a dose pack FOLLOW PACKAGE DIRECTION S 06/02 completed Not Available Not Available Not Available amoxicillin 875 mg-potassiu m clavulanate 125 mg tablet 06/03 completed Not Available Not Available Not Available buspirone 15 mg tablet TAKE ONE TABLET BY MOUTH THREE TIMES DAILY active Not Available Not Available No t Available hydroxyzine pamoate 25 mg capsule TAKE 1 CAPSULE BY MOUTH FOUR TIMES DAILY NEEDED FOR ANXIETY active Not Available Not Available No t Available Mucinex 600 mg tablet, extended release active Not Available Not Available Not Available escitalopra m 10 mg tablet active Not Available Not Available Not Available escitalopra m 20 mg tablet 05/25 completed Not Available Not Available Not Available ezetimibe 10 mg tablet Take 1 tablet every day by oral route. active Not Available Not Available No t Available divalproex ER 250 mg tablet,exte nded release 24 hr active Not Available Not Available Not Available buprenorphi ne 8 mg-naloxone [address] 1 TABLET UNDER TONGUE THREE TIMES DAILY FOR PAIN active Not Available Not Available No t Available Restasis 0.05 % eye drops in a dropperette INSTILL 1 DROP BOTH EYES TWICE DAILY active Not Available Not Available No t Available aripiprazol e 5 mg tablet TAKE 1 TABLET BY MOUTH EVERY MORNING active Not Available Not Available No t Available topiramate 50 mg tablet TAKE 1 TABLET BY MOUTH TWICE DAILY active Not Available Not Available No t Available duloxetine 30 mg capsule,del ayed release active Not Available Not Available Not Available duloxetine 60 mg capsule,del ayed release TAKE 1 CAPSULE BY MOUTH EVERY DAY active Not Available Not Available No t Available eszopiclone 3 mg tablet active Not Available Not Available Not Available eszopiclone 2 mg tablet TAKE 1 TABLET BY MOUTH EVERY DAY AT BEDTIME NEEDED FOR INSOMNIA active Not Available Not Available No t Available eszopiclone 1 mg tablet TAKE 1 TABLET BY MOUTH EVERY DAY AT BEDTIME X 1 WEEK. 2ND WEEK TAPER DOSE 06/02 completed Not Available Not Available Not Available pregabalin 150 mg capsule TAKE 1 CAPSULE BY MOUTH 3 TIMES A DAY NEEDING FOR NERVE PAIN active Not Available Not Available No t Available nebivolol 5 mg tablet TAKE 1 TABLET BY MOUTH EVERY DAY active Not Available Not Available No t Available buprenorphi ne 8 mg-naloxone 2 mg sublingual film DISSOLVE 1 FILM SUBLINGUA LLY THREE TIMES DAILY active Not Available Not Available No t Available Allergy Relief (fexofenadi ne) 180 mg tablet active Not Available Not Available Not Available Aimovig Autoinjecto r 70 mg/mL subcutaneou s auto-inject or ADMINISTE R 1 ML UNDER THE SKIN EVERY 30 DAYS active Not Available Not Available No t Available Nurtec ODT 75 mg disintegrat ing tablet DISSOLVE ONE TABLET BY MOUTH NEEDED FOR MIGRAINE active Not Available Not Available No t Available ID NOW COVID-19 Test Kit TEST DIRECTED TODAY active Not Available Not Available No t Available Qulipta 60 mg tablet active Not Available Not Available No t Available Vitals Date Recorded Body height Body mass index (BMI) Body weight Heart rate Respiratory rate Oxygen saturation Oxygen saturation in Arterial blood by Pulse oximetry Provider Name and Address Organization Details Last Updated DateTime 3 177.8 cm 45.6 kg/m2 680130. 37 g 102 /min 18 /min 93 % 93 % Zen Roche [facility] 3 18:10:41 Date Recorded Body height Heart rate Oxygen saturation Oxygen saturation in Arterial blood by Pulse oximetry Body mass index (BMI) Body weight Systolic blood pressure Diastolic blood pressure Provider Name and Address Organization Details Last Updated DateTime 3 177.8 cm 84 /min 87 % 87 % 42.9 kg/m2 128733. 12 g 139 mm[Hg] 86 mm[Hg] Fay Carrero [facility] 3 09:40:23 Date Recorded Body height Body mass index (BMI) Body weight Heart rate Oxygen saturation Oxygen saturation in Arterial blood by Pulse oximetry Systolic blood pressure Diastolic blood pressure Provider Name and Address Organization Details Last Updated DateTime 4 177.8 cm 41.1 kg/m2 861456. 93 g 76 /min 97 % 97 % 108 mm[Hg] 72 mm[Hg] Kady Lolly [facility] 4 10:18:10 Date Recorded Body height Body mass index (BMI) Body weight Heart rate Oxygen saturation Oxygen saturation in Arterial blood by Pulse oximetry Systolic blood pressure Diastolic blood pressure Provider Name and Address Organization Details Last Updated DateTime 4 177.8 cm 40.3 kg/m2 121698. 46 g 107 /min 95 % 95 % 151 mm[Hg] 97 mm[Hg] Fay Carrero [facility] 4 11:41:36 Social History None recorded. Functional Status None recorded. Mental Status None recorded. Family History Nothing Reported. Medical History No medical history recorded. Gynecological HistoryNo gynecological history recorded. Obstetrics History GPAL:G 0 P 0 0 0 0 Past Encounters Encounter ID Performer Location Encounter Start Date Encounter Closed Date Diagnosis/Indication Diagnosis SNOMED-CT Code Diagnosis ICD10 Code Diagnosis Note [id number] Sixto Feldman MD [place] [facility] [address] [place] [address] 02/06/2023 17:16:06 02/06/2023 18:36:32 Edema 140094940 R60.9 will start lasix 20 mg dailywe might consider jardiance in the future Atypical chest pain 1025 12208 R07.89 Treadmill Myoview Stress test, has high [place] Risk score. Has Known CAD, or CAD risk equivalent . To look for any ischemia. Dyspnea on exertion 6084 5006 R06.09 will do echo to the see the structure of the heart [id number] [facility] [place] [address] 06/04/2023 09:27:03 06/04/2023 10:31:41 Edema 990703609 R60.9 continue lasix 40 mg dailywe might consider jardiance in the future Dyspnea on exertion 6084 5006 R06.09 will do echo to the see the structure of the heart Atypical chest pain 1025 21491 R07.89 negative stress test 3contin ue with monitoring continue with baby aspirin Dyslipidemia 536081476 E 78.5 *Last LDL was 107 done on 03/29/23.P t takes lipitor 80 mg daily.will start her on zetia 10 mg dailyTG Is 223 done 03/2023 add fish oil BID daily Essential hypertension 13212984 I10 BP mildly elevated today, she will bring number with her next timecontin ue with bystolic 5 mg daily History of cerebrovascular accident 187215093 Z86.73 continue with aspirin [id number] [facility] [place] [address] 12/06/2023 10:00:34 12/06/2023 10:41:39 Edema 674293577 R60.9 continue lasix 40 mg daily Dyslipidemia 199691718 E 78.5 *Last LDL was 107 done on 03/29/23.P t takes lipitor 80 mg daily.cont inue with zetia 10 mg dailyTG Is 223 done 03/2023 continue fish oil BID dailyrepea t lipid panel Essential hypertension 51682849 I10 BP is well controlled continue with bystolic 5 mg daily History of cerebrovascular accident 879402606 Z86.73 continue with aspirin [id number] Sixto Feldman MD [place] [facility] [place] [address] 06/03/2024 11:18:39 06/03/2024 12:28:23 Edema 614273921 R60.9 continue lasix 40 mg daily Dyslipidemia 769589743 E 78.5 *Last LDL was 107 done on 03/29/23.P t takes lipitor 80 mg daily.cont inue with zetia 10 mg dailyTG Is 223 done 03/2023 continue fish oil BID dailyrepea t lipid panel Essential hypertension 06429312 I10 BP is well controlled continue with bystolic 5 mg daily History of cerebrovascular accident 766438168 Z86.73 continue with aspirin Health Concerns Section Related Observation LastModified by Organization Detai ls LastModified Time None Recorded Concern Status LastModified by Organization Details LastModified Time None Recorded Advance Directives Directive None Recorded Payers Encounter Date Sequence Insurance Name Policy Number Policy Wilks Covered Member ID Wilks Member ID Guarantor Name 02/06/2023 2 [employer] () Holly Debby [id number] Holly RandallDebby 06/04/2023 2 [employer] () Holly Debby [id number] Holly RandallDebby 06/04/2023 1 [place] [id number] Damir S Debby [id number] Holly RandallDebby 12/06/2023 2 [employer] () Holly Debby [id number] Holly Debby 12/06/2023 1 [place] [id number] Damir S Debby [id number] Holly Debby 06/03/2024 2 [employer] () Holly Debby [id number] Holly RandallDebby 06/03/2024 1 [place] [id number] Damir S Debby [id number] Holly Black Notes Date Note Type Note Provider Name and Address Organization Details Recorded Time 02/06/2023 text/html 02/07/23CC: Mikiee r exremity edemaHolly BLACK is 42 years-old Female with h/o stroke (2012) , S/p gastric bypass surgery (2008) , hypertension, hyperlipidemia, PFO s/p closure , anxiety, TONY on CPAP, hypothyroidism, AMARJIT, depression, was referred for cardiac evaluation due to Edema. She is here due to lower extremities edema. She occasional chest pain and dyspnea on exertion. *Last LDL was done on .Pt takes lipitor 40 mg daily. Today reports:Denies chest pain.Denies shortness of breath at rest. Has mild dyspnea on exertion.No orthopnea. No PNDs.Denies heart palpitations.Denies dizziness. Denies syncope or near syncope.Yes ankle or leg edema. will start lasix.No major bleeding events.No reported side effects from medications. Taking medications as prescribed with no missed doses.Denies snoring, daytime somnolence and AM headache.*Last LDL was done on .Pt takes. Sixto Feldman MD [address] [place], [address], [facility] 02/06/2023 18:37:01 06/04/2023 text/html 05/31/23CC : Car diac follow up dyspnea on exertionHolly BLACK is 43 years-old Female with h/o stroke (2012) , S/p gastric bypass surgery (2008) , hypertension, hyperlipidemia, PFO s/p closure , anxiety, TONY on CPAP, hypothyroidism, AMARJIT, depressionis here for follow up. She was last seen in the clinic on 02/06/23, since then she is doing well. Her stress test is negative. *Last LDL was 107 done on 03/29/23.Pt takes lipitor 80 mg daily. She denies ER visits and hospitalizations since she was last seen.*Last LDL was 107 done on 03/29/23.Pt takes lipitor 40 mg daily. Today reports:Denies chest pain.Denies shortness of breath at rest. Has mild dyspnea on exertion.No orthopnea. No PNDs.Denies heart palpitations.Denies dizziness. Denies syncope or near syncope.Yes ankle or leg edema. on lasix.No major bleeding events.No reported side effects from medications. Taking medications as prescribed with no missed doses.Denies snoring, daytime somnolence and AM headache.*Last LDL was 107 done on 03/29/23.Pt takes atorvastatin 80 mg. 3CMP-NA 142 K 3.9 BUN 8 CR 0.70 BUN 11 GL 93 CA 9.7,CK Total-159,CJID5D-8.3,L IPID-CHOL 187 HDL 42 LDL 107 TRIG 223 *Had Adequate Stress with Lexiscan on 03/24/23 with Normal LV systolic function. LVEF: 60%. Previously:Last visit came for cardiac evaluation due to Edema. She occasional with chest pain and dyspnea on exertion. JO [facility] - [facility] 06/04/2023 10:27:10 12/06/2023 text/html 12/06/23CC : Car diac follow up chest painHolly BLACK is 43 years-old Female with h/o stroke (2012) , S/p gastric bypass surgery (2008) , hypertension, hyperlipidemia, PFO s/p closure , stroke (2012) anxiety, TONY on CPAP, hypothyroidism, AMARJIT, depression is here for 3 month follow up with ECHO results She was last seen in the clinic on 06/04/23, since then she is doing well. She denied chest pain or dyspnea on exertion. *Last LDL was 107 done on 03/29/23.Pt takes Lipitor 80 mg and ezetimibe 10 mg daily.She denies ER visits and hospitalizations since she was last seen. Today reports: CC: pt states no concerns at this timeDenies chest pain.Denies shortness of breath at rest. Has mild dyspnea on exertion.No orthopnea. No PNDs.Denies heart palpitations.Denies dizziness. Denies syncope or near syncope.No ankle or leg edema.No major bleeding events.No reported side effects from medications. Taking medications as prescribed with no missed doses.Denies snoring, daytime somnolence and AM headache.*Last LDL was 107 done on 03/29/23.Pt takes Lipitor 80 mg and ezetimibe 10 mg daily. *Had ECHO on 07/23/23 showed LV chamber Size is normal.LVEF 60-65%, the aortic valve is mildly calcified, the mitral valve leaflet is mildly thickened, there is minimal pulmonic regurgitation. Previously:Her stress test is negative. 3CMP-NA 142 K 3.9 BUN 8 CR 0.70 BUN 11 GL 93 CA 9.7,CK Total-159,RRFD4J-0.3,L IPID-CHOL 187 HDL 42 LDL 107 TRIG 223 *Had Adequate Stress with Lexiscan on 03/24/23 with Normal LV systolic function. LVEF: 60%. She occasional with chest pain and dyspnea on exertion. SEAN hong, [place] - [facility] 12/06/2023 10:39:03 06/03/2024 text/html CC : Cardiac follow Alfonzo BLACK is 44 years-old Female with h/o stroke (2012) , S/p gastric bypass surgery (2008) , hypertension, hyperlipidemia, PFO s/p closure , stroke (2012) anxiety, TONY on CPAP, hypothyroidism, AMARJIT, depression is here for 6 month follow up. She was last seen in the clinic on 12/06/23, since then she has Migraine headache nowShe denies ER visits and hospitalizations since she was last seen. Today reports:migraine /chronic back painDenies chest pain.Denies shortness of breath at rest. Has mild dyspnea on exertion.No orthopnea. No PNDs.Denies heart palpitations.Denies dizziness. Denies syncope or near syncope.No ankle or leg edema.No major bleeding events.No reported side effects from medications. Taking medications as prescribed with no missed doses.Denies snoring, daytime somnolence and AM headache.*Last LDL was 107 done on 03/29/23.Pt takes Lipitor 80 mg and ezetimibe 10 mg daily. Previously:*Had ECHO on 07/23/23 showed LV chamber Size is normal.LVEF 60-65%, the aortic valve is mildly calcified, the mitral valve leaflet is mildly thickened, there is minimal pulmonic regurgitation. *Had Adequate Stress with Lexiscan on 03/24/23 with Normal LV systolic function. LVEF: 60%. Sixto Feldman MD [address] [place], [address], [facility] - [facility] 06/03/2024 12:24:17 OBGyn Episode No OBEpisode recorded.
--- OUTSIDE RECORDS SUMMARY | 2024-09-26 05:58 | XMS_ITS ---
Author Organization [facility] Address [address] [place], [place] [id number] Care Team Providers Care Patent Prosecution Paralegal Name Role Phone KENYON FORREST Unavailable [phone] Darci Woody Unavailable Unavailable Allergies No Known Allergies REASON FOR VISIT *Injection follow-up Medications Medication SIG (Take, Route, Frequency, Duration) Notes Start Date End Date Status Medrol 4 MG as directed Orally 04/24/2024 Active Encounters Encounter Location Date Provider Diagnosis [facility] [address] [place], [place] [id number] 07/24/2024 KENYON FORREST Tailor's bunion of right foot M21.621 ; Bunionette of left foot M21.622 ; Pain in right foot M79.671 and Left foot pain M79.672 Assessments Encounter Date Diagnosis (ICD Code) Assessment Notes Treatment Notes Treatment Clinical Notes Section Notes 07/24/2024 Tailor's bunion of right foot (ICD-10 - M21.621) Following skin prep, a total of 3 ccs of a 1-1-1 mix of 0.5% marcaine plain, Kenalog, and dexamethasone sodium phosphate was injected into the patients right 5th MTH 07/24/2024 Bunionette of left foot (ICD-10 - M21.622) Surgical correction was discussed. The patient opted not to proceed at this time. 07/24/2024 Pain in right foot (ICD-10 - M79.671) 07/24/2024 Left foot pain (ICD-10 - M79.672) Plan Of Treatment Treatment Notes Assessment Notes Tailor's bunion of right foot Following skin prep, a total of 3 ccs of a 1-1-1 mix of 0.5% marcaine plain, Kenalog, and dexamethasone sodium phosphate was injected into the patients right 5th MTH Bunionette of left foot Surgical correct ion was discussed. The patient opted not to proceed at this time. Next Appt Details Provider Name:KENYON SPIVEY, 10/02/2024 07:30:00 AM, [address], [place], [address], Provider Name:KENYON SPIVEY, 10/09/2024 03:10:00 PM, [address], [facility], [place], [place], [phone], Progress Notes * ANGELICA BLACK LDOB: 0 (44 yo F)Acc No.[id number]:07/24/2024 Patient: Michael ANGELICA VIDALES Estefany Provider: Kan Forrest DPM :1980 A ge:44 Y S ex:Female Date:07/24/2024 Address:[address] [place] [address] , [id number] Subjective: * Chief Complaints: * * Injection follow-up * HPI: H PI: Follow Up Visit P atient presents for follow-up visit for injection, right foot. Patient states injection helped decrease her pain, but pain never fully went away. Patient states pain returned to previous level about 1 week ago. MA: LB. * Medical History: * Surgical History: * Hospitalization/Major Diagno stic Procedure: * Family History: F ather: PRN - Father: :: Psychotic disorder,,known absent , :: Back Problem,,known absent , :: Hypertension,,known absent , :: Diabetes,,known absent . M other: PRN - Mother: :: Back Problem,,known absent , :: Thyroid Dz,,known absent . B rother: SIB - Brother: :: Arthritis,,known absent , :: Sleep apnea,,known absent . S ister: SIB - Sister: :: Blood disorder,,known absent , :: Arthritis,,known absent . * Social History: M igrated Social History: M igrated Social History: Smoking Status : Never used tobacco , History of tobacco use :. * Medications: T akingMedrol 4 MG Tablet Therapy Pack as directed Orally Taking Medrol 4 MG Tablet Therapy Pack as directed Orally * Allergies: N .K.D.A.no[Allergies Verified] Objective: * Vitals: * Examination: C onstitutional: Constitutional T he patient is awake, alert, well developed, well groomed and well nourished. . D ermatologic: Skin findings: S kin is warm, dry, supple with no breaks in the skin. Skin is dry and cracking stephon. Nail pathology: N ails 1-5 bilateral are normal in appearance and thickness. No discoloration. . Ulcer: T here is no evidence of ulceration noted at this time . Hyperkeratotic Skin Lesion T here is no evidence of hyperkeratosis . M usculoskeletal: Muscle Strength M uscle strength is 5/5 in regards to dorsiflexion, plantarflexion, inversion, and eversion in bilateral lower extremities. . Foot Structure T he foot structure is noted to be normal bilaterally . Pain on palpation T here is no pain on palpation . Tailors Bunion T here is a laterally prominent 5th metatarsal head of the right foot . Gait T here is normal gait noted . N eurologic: Muscle power: 5 /5 bilaterally . Gross sensation G ross sensation is intact to light touch. . V ascular: Dorsalis pedis pulse: 2 /4 bilateral . Posterior tibial pulse: 2 /4 bilaterally . Capillary refill: l ess than 3 seconds bilaterally . Temperature gradient: w ithin normal limits . ? Assessment: * Assessment: 1. T ailor's bunion of right foot - M21.621 (Primary) 2 . B unionette of left foot - M21.622 3 . P ain in right foot - M79.671 4 . L eft foot pain - M79.672 Plan: * Treatment: 2. B unionette of left foot Notes: Surgical correction was discussed. The patient opted not to proceed at this time. * Procedure Codes: 2 0600 DRAIN/INJECT, JOINT/BURSA, Modifiers: RT * Billing Information: * Visit Code: 13809 Office Visit, Est Pt., Level 3. Modifiers: 25 * Procedure Codes: DRAIN/INJECT, JOINT/BURSA. Modifiers: RT * ESSIONAL ARCHITECT Sign off status: Completed true * Provider: Kan Forrest DPM Date: 0 07/24/2024 Generated for Dalia grace/Valeri/Mary on: 0 09/26/2024 05:58 AM CDT History and Physical Notes * HPI (History of Present Illness) Category Sub-Category Detail Notes Category Not es HPI Follow Up Visit Patient presents for follow-up visit for injection, right foot. Patient states injection helped decrease her pain, but pain never fully went away. Patient states pain returned to previous level about 1 week ago. MA: LB Examination Category Sub-Category Detail Notes Category Not es Constitutional Constitutional The patient is a wake, alert, well developed, well groomed and well nourished. Dermatologic Skin findings: Skin is warm, dr y, supple with no breaks in the skin. Skin is dry and cracking stephon Nail pathology: Nails 1-5 bilateral are normal in appearance and thickness. No discoloration. Ulcer: There is no evidence of ulceration noted at this time Hyperkeratotic Skin Lesion There is no e vidence of hyperkeratosis Musculoskeletal Muscle Strength Muscle strength is 5/5 in regards to dorsiflexion, plantarflexion, inversion, and eversion in bilateral lower extremities. Pain on palpation There is no pain on palpation Tailors Bunion There is a laterally prominent 5th metatarsal head of the right foot Foot Structure The foot structure i s noted to be normal bilaterally Gait There is normal gait noted Neurologic Muscle power: 5/5 bilaterally Gross sensation Gross sensation is i ntact to light touch. Vascular Dorsalis pedis pulse: 2/4 bilateral Posterior tibial pulse: 2/4 bilaterally Capillary refill: less than 3 seconds bilaterally Temperature gradient: within normal limi ts
--- OUTSIDE RECORDS SUMMARY | 2024-09-26 05:58 | XMS_ITS | Encounter Summary ---
Author Organization [facility] Address [address] [place] [address] Phone Care Team Providers Care Residential Building Inspector Name Role Phone Saul Ruelas MD Primary Care Provider [phone] Abiodun Red MD Unavailable [phone] Issac Amador MD Unavailable [phone] Encounter Details Date Type Department Care Team (Late st Contact Info) Description 09/08/2024 Results Follow-Up [facility] [address] [place] [phone] Issac Amador MD [address] [place] [address] Social History Tobacco Use Types Packs/Day Years Used Date Smoking Tobacco: Never Smokeless Tobacco: Never AUDIT-C Answer Date Recorded Q1: How often do you have a drink containing alc ohol? Never 04/07/2021 Average Number of Drinks Not on file 021 Q3: How often do you have si x or more drinks on one occasion? Never 04/07/2021 Comments Unknown Sex and Gender Information Value Date Recorded Sex Assigned at Not on file Legal Sex Female 9:00 AM RN NICU Gender Identity Female 09/06/2024 3:20 PM RN NICU Sexual Orientation Not on file documented as of this encounter Plan of Treatment Not on file documented as of this encounter Visit Diagnoses Not on filedocumented in this encounter Care Teams Residential Building Inspector Relationship Specialty Start Date End Date Saul Ruelas MD PCP - General Family Medicine 08/25/20 Abiodun Red MD [address] [place] [address] Referring Physician Neurology 11/27/22 Issac Amador MD [address] [place] [address] Consulting Physician Rheumatology 07/23/24 documented as of this encounter
--- OUTSIDE RECORDS SUMMARY | 2024-09-26 05:58 | XMS_ITS | Clinical Summary ---
Author Organization [facility] Care Team Providers Care Manager Action Name Role Phone Unavailable Primary Care Provider Unavailabl e Immunizations Immunization Administration Dates Next Due Covid-19, Mrna, Lnp-s, Pf, 30 Mcg/0.3 Ml Dose (P fizer) 10/21/2020,09/28/2020 Social History Tobacco Use Types Packs/Day Years Used Date Smoking Tobacco: Never Assessed Comments Unknown Sex and Gender Information Value Date Recorded Sex Assigned at Not on file Legal Sex Female 1:34 PM CDT Gender Identity Not on file Sexual Orientation Not on file Plan of Treatment Health Maintenance Due Date Last Done Comments Hepatitis C Virus (HCV) Screening 1980 TdaP Immunization 1980 Hepatitis B Immunization (1 of 3 - 19+ 3-dose series) 1999 Pap Smear 2001 Cervical Cancer Screening (CCS) 2010 HPV/Cotest 2010 Discussion re Starting/Frequency of Mammograms 2020 Influenza Immunization (#1) 2024 06/04/2020 SARS-COV-2 Immunization (2023- season) 2024 10/21/2020, 09/28/2020 Respiratory Syncytial Virus (RSV) Immunization (Adult) (1 - 1-dose 75+ series) 2055 Meningococcal Immunization (ACWY) Aged Out No longer eligible b ased on patient's age to complete this topic Pneumococcal Immunization Combined Aged Out No longer eligible b ased on patient's age to complete this topic Rotavirus Immunization Aged Out No lo nger eligible based on patient's age to complete this topic
--- OUTSIDE RECORDS SUMMARY | 2024-09-26 05:58 | XMS_ITS | Encounter Summary ---
Author Organization [facility] Address [address] [place] [address] Phone Care Team Providers Care Jukebox Coin Collector Name Role Phone Saul Ruelas MD Primary Care Provider [phone] Abiodun Red MD Unavailable [phone] Issac Amador MD Unavailable [phone] Encounter Details Date Type Department Care Team (Late st Contact Info) Description 09/01/2024 Telephone [facility] [address] [place] [phone] Vicenta Early PA [facility] [place] [address] Social History Tobacco Use Types Packs/Day [...] on file Legal Sex Female 9:00 AM ASSOCIATE DRAFTER Gender Identity Female 09/06/2024 3:20 PM ASSOCIATE DRAFTER Sexual Orientation Not on file documented as of this encounter Miscellaneous Notes * Telephone Encounter - Chalino Palacios - 09/01/2024 2:01 PM CST Spoke with liset at [facility] [employer] ([phone]) she stated she will fax over the pt records. -RL CIATE DRAFTER * Telephone Encounter - Vicenta Early PA - 09/01/2024 12:17 PM ASSOCIATE DRAFTER Can we get records from patient's eye doctor? She goes to [facility] in [place], [place]. Thanks. CIATE DRAFTER documented in this encounter Plan of Treatment Not on file documented as of this encounter Visit Diagnoses Not on filedocumented in this encounter Care Teams Jukebox Coin Collector Relationship Specialty Start Date End Date Saul Ruelas MD PCP - General Family Medicine 08/25/20 Abiodun Red MD [address] [place] [address] Referring Physician Neurology 11/27/22 Issac Amador MD [address] [place] [address] Consulting Physician Rheumatology 07/23/24 documented as of this encounter
[2024-09-26 05:59] VITALS: BP 122/70; PULSE 83; RESP 18; TEMP 36.6; O2SAT 100
--- OUTSIDE RECORDS SUMMARY | 2024-09-26 05:59 | XMS_ITS | Clinical Summary ---
Author Organization [address] Address [address] [place] [phone] Care Team Providers Care Service Counselor Name Role Phone Saul Ruelas MD Primary Care Provider [phone] Abiodun Red MD Unavailable [phone] Issac Amador MD Unavailable [phone] Allergies No known active allergies Medications atorvastatin (LIPITOR) 40 mg tablet 09/16/19 21 Active cyclobenzaprine (FLEXERIL) 10 mg tablet 09/29/19 21 Active Synthroid 137 mcg tablet 09/16/19 21 Active pilocarpine (SALAGEN) 5 mg tablet 09/16/19 21 Active pregabalin (LYRICA) 150 mg capsule Take 1 capsule (150 mg total) by mouth 2 (two) times a day 07/09/20 20 Active SUMAtriptan (IMITREX) 100 mg tablet 08/17/19 21 Active topiramate (TOPAMAX) 50 mg tablet 09/16/19 21 Active omeprazole (PriLOSEC) 20 mg capsule Take 1 capsule (20 mg total) by mouth daily Active nebivoloL (BYSTOLIC) 5 mg tablet Take 1 tablet (5 mg total) by mouth daily Active lidocaine (LIDODERM) 5 % 03/11/20 21 Active buprenorphine-n aloxone (SUBOXONE) 8-[address] 1 FILM UNDER THE TONGUE THREE TIMES DAILY 06/15/20 21 Active Monoject Safety Luer Lock Tip 3 mL syringe 04/17/20 21 Active PreviDent 5000 Plus 1.1 % cream 05/18/20 21 Active aspirin 81 mg enteric coated tablet Active Qulipta 60 mg tablet 12/13/19 24 Active busPIRone (BUSPAR) 15 mg tablet Take 1 tablet (15 mg total) by mouth 3 (three) times a day Active DULoxetine DR (CYMBALTA) 60 mg capsule Take 1 tablet by mouth daily Active Aimovig Autoinjector 70 mg/mL auto-injector subcutaneous injection ADMINISTER 1 ML UNDER THE SKIN EVERY 30 DAYS Active furosemide (LASIX) 40 mg tablet Take 1 tablet (40 mg total) by mouth daily Active hydroxychloroqu ine (PLAQUENIL) 200 mg tablet Take 1 tablet (200 mg total) by mouth daily 08/20/19 25 Active hydrOXYzine (VISTARIL) 50 mg capsule TAKE 1 CAPSULE BY MOUTH FOUR TIMES DAILY NEEDED FOR ANXIETY Active mupirocin (BACTROBAN) 2 % ointment APPLY IN NOSE ROTATION WITH TACROLIMUS FOR NO MORE THAN 2 WEEKS AT A TIME. TAKE A FEW DAYS BEFORE RESUMING FOR FLARES. 08/20/19 25 Active tacrolimus (PROTOPIC) 0.1 % ointment APPLY TOPICALLY TO THE AFFECTED AREA OF FACE 1-2 TIMES DAILY UNTIL CLEAR THEN USE NEEDED Active traZODone (DESYREL) 100 mg tablet TAKE 1 TABLET BY MOUTH AT BEDTIME AFTER 50 MG DOSE COMPLETE Active omega-3 fatty acids-fish oil 300-1,000 mg capsule Take 2 capsules (2 g total) by mouth daily Active ferrous sulfate ER 324 mg (65 mg iron) EC tabletIndicatio ns:Iron Deficiency Anemia Take 65 mg by mouth Active clobetasoL (TEMOVATE) 0.05 % ointment Apply topically 2 (two) times a day Active meloxicam (MOBIC) 7.5 mg tablet Take 1 tablet (7.5 mg total) by mouth daily 30 tablet 09/01/19 25 2025 Active eszopiclone (LUNESTA) 3 mg tabletIndicatio ns:Insomnia Take 1 tablet (3 mg total) by mouth daily Take immediately before bedtime 30 tablet 3 09/08/19 25 Active amitriptyline (ELAVIL) 25 mg tablet 08/17/19 21 2024 Discontinued(P atient Reported) buprenorphine-n aloxone (SUBOXONE) 8-2 mg per SL tablet 1 tablet 3 (three) times a day as needed 10/01/19 21 2024 Discontinued(D uplicate order) fexofenadine (ANNIKA) 180 mg tablet 09/16/19 21 2024 Discontinued(P atient Reported) fluticasone propionate (FLONASE) 50 mcg/actuation nasal spray 09/16/19 21 2024 Discontinued(P atient Reported) simethicone (MYLICON) 80 mg chewable tablet 09/16/19 21 2024 Discontinued(P atient Reported) aspirin 325 mg 325 mg 2024 Discontinued(A lternate therapy) cyanocobalamin (Vitamin B-12) 1,000 mcg/mL injection 02/28/20 21 2024 Discontinued Proctofoam HC rectal foam 12/30/19 21 2024 Discontinued(P atient Reported) tretinoin (RETIN-A) 0.01 % gel 03/23/20 21 2024 Discontinued(P atient Reported) valACYclovir (VALTREX) 1 gram tablet 04/13/20 21 2024 Discontinued(P atient Reported) eszopiclone (LUNESTA) 3 mg tabletIndicatio ns:Insomnia Take 1 tablet (3 mg total) by mouth daily Take immediately before bedtime 30 tablet 3 02/28/20 24 2024 Discontinued(R eorder) Active Problems Problem Noted Date Diagnosed Date Sicca complex 09/01/2024 Overview (09/19/2024): 09/01/24: CBC nl, CMP nl, ESR 9, CRP <0.3mg/dL AVISE 09/01/24: isolated Anti-Tg Ab 91 XR b/l hands 09/12/24: normal US left hand/wrist 09/08/24: 1. Grade 1 effusion of the ulnar styloid 2. Mild synovial thickening of the 2nd MCPJ with grade 1 volar effusion 3. Mild synovial thickening of the 3rd and 5th MCPJ 4. Moderate synovial thickening of the 4th MCPJ and 3rd PIPJ 5. Marked synovial thickening of the 2nd PIPJ 6. No significant power Doppler inflammation or erosion seen Assessment & Plan (09/01/2024 12:03 PM LIME SLUDGE KILN OPERATOR): 44-year-old female with PMHx of HTN, HLD, stoke, blood clot, TONY, eczema, depression, anxiety, fibromyalgia, anemia, thyroid disease, GERD, and migraines here for evaluation of possible Sjogren's syndrome. C/o dry eyes, mouth, and skin tx w/ pilocarpine 5mg TID and Rx eye drops with some relief. Notes mouth sores on the hard palate, along with fissures on the fingertips and nose/nostrils, and joint pain in the hands and back along with AM stiffness that improves after 1 hour of walking on a treadmill. Back pain worse with activity/end of day suggestive of DJD. There is questionable synovitis mainly in the left hand on exam today. Symptoms and exam are suspicious for Sj gren's syndrome. Will order appropriate serologies, radiographs, and a left hand/wrist US to further evaluate. Increase Pilocarpine ; avoiding higher dosing as she already notes diaphoresis with this. Continue HCQ 200mg daily for now. Will start meloxicam 7.5mg daily. Discussed side effects of the medication, including but not limited to GI upset, kidney, and ulcers. Deferring higher dosing due to hx GERD. Will contact front attendant for records. Follow up in 2 weeks. Sooner if needed. Seen with Dr. Amador. TONY (obstructive sleep apnea) 10/05/2020 Assessment & Plan (07/01/2024 10:25 AM LIME SLUDGE KILN OPERATOR): Patient continue with CPAP at 8 cm water pressure while sleeping. She was intolerable of higher pressures in the past. DME is [employer]. Assessment & Plan (06/28/2023 11:59 AM LIME SLUDGE KILN OPERATOR): Due to continued symptoms, the patient will continue CPAP at 8 cm water pressure. The patient has an elevated AHI, however she is intolerant of higher pressure. Denied need for supplies. DME [employer] Assessment & Plan (06/27/2022 12:02 PM LIME SLUDGE KILN OPERATOR): Patient continue to wear CPAP at 8 cm water pressure while sleeping. Her DME is [employer]. The patient did not tolerate an increase in her pressures in the past. Assessment & Plan (06/30/2021 11:05 AM LIME SLUDGE KILN OPERATOR): Patient continue to wear CPAP at 8 cm water pressure while sleeping. Her DME is [employer]. The patient is already registered her CPAP machine. Assessment & Plan (04/07/2021 11:41 AM CDT): Due to the patient's elevated AHI and her stating that she may be able to tolerate higher pressure, I have increased her CPAP setting to 12 cm water pressure. The patient was also provided an order for a chin strap so she may alternate masks. The patient denied need for supplies. DME company [employer]. The patient and I discussed the recall in depth. The patient was instructed to examine CPAP machine prior to use for debris. The patient was provided information on the CPAP recall registration and replacement. Assessment & Plan (10/05/2020 11:45 AM CDT): Due to the elevated AHI, I have increased her CPAP setting to 10 cm of water pressure. The patient was also provided a prescription for a fullface mask due to her air leaks and her mouth coming open while sleeping. The DME company is [employer]. The patient is benefitting from CPAP therapy. Other insomnia 10/05/2020 Assessment & Plan (07/01/2024 10:25 AM LIME SLUDGE KILN OPERATOR): The patient continues with Lunesta 3 mg on most nights. Assessment & Plan (06/28/2023 11:58 AM LIME SLUDGE KILN OPERATOR): Due to continued symptoms, the patient will continue Lunesta 3 mg nightly. I have refilled the medication and will refill for 1 year Patient is aware that she should wear her CPAP machine if taking the medication. Assessment & Plan (06/27/2022 12:02 PM LIME SLUDGE KILN OPERATOR): The patient will continue with Lunesta 3 mg p.o. at bedtime to treat insomnia. Assessment & Plan (06/30/2021 11:04 AM LIME SLUDGE KILN OPERATOR): The patient will continue with Lunesta 3 mg p.o. at bedtime to treat insomnia. Assessment & Plan (04/07/2021 11:40 AM CDT): The patient will continue with Lunesta 3 mg p.o. at bedtime to treat insomnia. Assessment & Plan (10/05/2020 11:45 AM CDT): The patient will continue to follow with primary care physician in regards to insomnia and treatment options. Encounters Date Type Department Care Team Description 09/16/2024 Orders Only [facility] [address] [place] [phone] Vicenta Early PA 09/08/2024 10:21 AM LIME SLUDGE KILN OPERATOR - 09/08/2024 11:59 PM LIME SLUDGE KILN OPERATOR Hospital Encounter [facility] [address] [place] [phone] Sicca complex; Polyarthralgia Discharge Disposition: Discharge to home or self care 09/08/2024 Results Follow-Up [address] [phone] Issac Amador MD 09/01/2024 10:30 AM LIME SLUDGE KILN OPERATOR Office Visit [address] [phone] Vicenta Early PA Sicca complex (Primary Dx); Polyarthralgia 09/01/[address] [phone] Vicenta Early PA 07/01/2024 10:00 AM LIME SLUDGE KILN OPERATOR Office Visit [facility] [address] [place] [phone] Tawanna Kee NP TONY (obstructive sleep apnea) (Primary Dx); Other insomnia from Last 3 Months Surgical History Surgery Date Site/Laterality Comments SECTION 06/26/2008 GASTRIC BYPASS 06/15/2009 - 07/15/2009 CHOLECYSTECTOMY 09/13/2009 - 10/13/2009 ABDOMINAL HERNIA REPAIR 07/16/2011 - 07/15/2012 FOOT NEUROMA SURGERY 07/16/2017 - 07/15/2018 Right Social History Tobacco Use Types Packs/Day Years Used Date Smoking Tobacco: Never Smokeless Tobacco: Never Tobacco Cessation:Counseling Given: Not Answered AUDIT-C Answer Date Recorded Q1: How often do you have a drink containing alc ohol? Never 04/07/2021 Average Number of Drinks Not on file 021 Q3: How often do you have si x or more drinks on one occasion? Never 04/07/2021 Comments Unknown Sex and Gender Information Value Date Recorded Sex Assigned at Not on file Legal Sex Female 9:00 AM LIME SLUDGE KILN OPERATOR Gender Identity Female 09/06/2024 3:20 PM LIME SLUDGE KILN OPERATOR Sexual Orientation Not on file Obstetrics History Last Filed Vital Signs Vital Sign Reading Time Taken Comments Blood Pressure 134/76 09/01/2024 10:16 AM LIME SLUDGE KILN OPERATOR Pulse 106 09/01/2024 10:16 AM LIME SLUDGE KILN OPERATOR Temperature 36.4 C (97.6 F) 07/01/2024 9:59 AM LIME SLUDGE KILN OPERATOR Respiratory Rate 18 07/01/2024 9:59 AM LIME SLUDGE KILN OPERATOR Oxygen Saturation 96% 09/01/2024 10:16 AM LIME SLUDGE KILN OPERATOR Inhaled Oxygen Concentration - - Weight 127 kg (280 lb) 09/01/2024 10:16 AM LIME SLUDGE KILN OPERATOR Height 177.8 cm (5' 10 ) 09/01/2024 10:16 AM LIME SLUDGE KILN OPERATOR Body Mass Index 40.18 09/01/2024 10:16 AM LIME SLUDGE KILN OPERATOR Plan of Treatment Health Maintenance Due Date Last Done Comments Breast Cancer Screening-Mammogram 1980 Cervical Cancer Screening 1980 Depression Screening 1980 Hepatitis C Screening 1980 DTaP/Tdap/Td Vaccine (1 - Tdap) 1991 Varicella Vaccines (1 of 2 - 13+ 2-dose series) 1993 Hepatitis B Screening 1998 Regular Well Visit/Exam 18-64 1998 Pneumococcal vaccine <65 (1 of 2 - PCV) 1999 Zoster Vaccine (1 of 2) 1999 Covid-19 Vaccine (3 - Pfizer risk series) 11/18/2020 10/21/2020, 09/28/2020 Influenza Vaccine (#1) 2024 06/04/2020 HPV Vaccines Aged Out No longer eligi ble based on patient's age to complete this topic Procedures Procedure Name Priority Date/Time Associated Diagnosis Comments SCAN - RADIOLOGY/IMAGING 09/16/2024 4:34 PM LIME SLUDGE KILN OPERATOR US HAND COMPLETE Schedule Routine, Read Routine (OP Routine) 09/08/2024 11:12 AM LIME SLUDGE KILN OPERATOR Sicca complex Polyarthralgia ERYTHROCYTE SEDIMENTATION RATE Routine 09/01/2024 11:37 AM LIME SLUDGE KILN OPERATOR Sicca complex Polyarthralgia CRP (ACUTE PHASE) Routine 09/01/2024 11: 37 AM LIME SLUDGE KILN OPERATOR Sicca complex Polyarthralgia COMPREHENSIVE METABOLIC PANEL Routine 09/01/2024 11:37 AM LIME SLUDGE KILN OPERATOR Sicca complex Polyarthralgia CBC WITH AUTO DIFFERENTIAL Routine 09/01/2024 11:37 AM LIME SLUDGE KILN OPERATOR Sicca complex Polyarthralgia MISCELLANEOUS LAB TEST Routine 09/01/2024 10:09 AM LIME SLUDGE KILN OPERATOR Sicca complex Polyarthralgia from Last 3 Months Results * SCAN - RADIOLOGY/IMAGING (09/16/2024 4:34 PM LIME SLUDGE KILN OPERATOR) Anatomical Region Laterality Modality Other Vicenta LANDA Final Result * US Hand Complete (09/08/2024 11:12 AM LIME SLUDGE KILN OPERATOR) Anatomical Region Laterality Modality Hand N/A Ultrasound Issac Amador MD [facility] US PROCEDURES Final Result * (ABNORMAL) CBC with auto differential (09/01/2024 11:37 AM LIME SLUDGE KILN OPERATOR) WBC 7.9 3.8 - 10.8 Thousand/u L [facility] RBC, POC 4.21 3.80 - 5.10 Million/uL [facility] Hgb 12.8 11.7 - 15.5 g/dL [facility] Hct 40.2 35.0 - 45.0 % [facility] MCV 95.5 80.0 - 100.0 fL [facility] MCH 30.4 27.0 - 33.0 pg [facility] MCHC 31.8(L) 32.0 - 36.0 g/dL [facility] Comment: For adults, a slight decrease in the calculated MCHC value (in the range of 30 to 32 g/dL) is most likely not clinically significant; however, it should be interpreted with caution in correlation with other red cell parameters and the patient's clinical condition. Rdw 11.8 11.0 - 15.0 % [facility] Platelets 326 140 - 400 Thousand/u L [facility] MPV 9.9 7.5 - 12.5 fL [facility] Neutrophils, abs 4,669 1,500 - 7,800 cells/uL [facility] Lymphocytes, abs 2,536 850 - 3,900 cells/uL [facility] Monocyte abs 521 200 - 950 cells/uL [facility] Eosinophils, abs 111 15 - 500 cells/uL [facility] Basophils, abs 63 0 - 200 cells/uL [facility] Neutrophils 59.1 % [facility] Lymphocyte pct 32.1 % [facility] Monocytes 6.6 % [facility] Eosinophils 1.4 % [facility] Basophils 0.8 % [facility] Blood 09/01/2024 11:3 7 AM LIME SLUDGE KILN OPERATOR 09/01/2024 11:37 AM LIME SLUDGE KILN OPERATOR us Issac Amador MD LAB BLOOD ORDERABLES Final Res ult [facility] [address] [address] [place] [phone] * Erythrocyte sedimentation rate (09/01/2024 11:37 AM LIME SLUDGE KILN OPERATOR) Erythrocyte sedimentation rate 9 < OR = 20 mm/h [facility] Blood 09/01/2024 11:3 7 AM LIME SLUDGE KILN OPERATOR 09/01/2024 11:37 AM LIME SLUDGE KILN OPERATOR Issac Amador MD LAB BLOOD ORDERABLES Final Res ult Performing Organization Address City/[facility]/ZIP Co de Phone Number QUE[facility] [address] [place] [address] * CRP (acute phase) (09/01/2024 11:37 AM LIME SLUDGE KILN OPERATOR) Pathologist [facility] C-RP <3.0 <8.0 mg/L [facility] Blood 09/01/2024 11:3 7 AM LIME SLUDGE KILN OPERATOR 09/01/2024 11:37 AM LIME SLUDGE KILN OPERATOR Issac Amador MD LAB BLOOD ORDERABLES Final Res ult Performing Organization Address [facility] Co de Phone Number QUEST [facility] [address] [place] [address] * Comprehensive metabolic panel (09/01/2024 11:37 AM LIME SLUDGE KILN OPERATOR) Pathologist [facility] Glucose 71 65 - 99 mg/dL [facility] Comment: Fasting reference interval BUN 11 7 - 25 mg/dL [facility] Creatinine 0.86 0.50 - 0.99 mg/dL [facility] eGFR 85 > OR = 60 mL/min/1.7 3m2 [facility] BUN/creat ratio SEE NOTE: 6 - 22 (calc) [facility] Comment: Not Reported: BUN and Creatinine are within reference range. Sodium 142 135 - 146 mmol/L [facility] Potassium, pl 4.3 3.5 - 5.3 mmol/L [facility] Chloride 102 98 - 110 mmol/L [facility] CO2 32 20 - 32 mmol/L [facility] Calcium 9.7 8.6 - 10.2 mg/dL [facility] Protein, sr 6.4 6.1 - 8.1 g/dL [facility] Albumin 4.5 3.6 - 5.1 g/dL [facility] GLOBULIN 1.9 1.9 - 3.7 g/dL (calc) [facility] Alb/glob ratio 2.4 1.0 - 2.5 (calc) [facility] Bilirubin, total 0.2 0.2 - 1.2 mg/dL [facility] Alk phos 101 31 - 125 U/L [facility] AST 19 10 - 30 U/L [facility] ALT (SGPT) 18 6 - 29 U/L [facility] Blood 09/01/2024 11:3 7 AM LIME SLUDGE KILN OPERATOR 09/01/2024 11:37 AM LIME SLUDGE KILN OPERATOR Issac Amador MD LAB BLOOD ORDERABLES Final Res ult [facility] [address] [place] [address] * [facility] CTD - Miscellaneous Test (09/01/2024 10:09 AM LIME SLUDGE KILN OPERATOR) Miscellaneous Issac Amador MD LAB BLOOD ORDERABLES Final Res ult EXTERNAL LAB from Last 3 Months Insurance [facility] [employer] [place] [facility] [place] [facility] [address] [place] [address] Care Teams Service Counselor Relationship Specialty Start Date End Date Saul Ruelas MD PCP - General Family Medicine 08/25/20 Abiodun Red MD [address] [place] [address] Referring Physician Neurology 11/27/22 Issac Amador MD [address] [place] [id number] Consulting Physician Rheumatology 07/23/24
--- OUTSIDE RECORDS SUMMARY | 2024-09-26 05:59 | XMS_ITS ---
Author Organization [facility] Address [address] [place], [place] [id number] Care Team Providers Care Hard Tile Setter Apprentice Name Role Phone KENYON FORREST Unavailable [phone] Darci Woody Unavailable Unavailable Allergies No Known Allergies REASON FOR VISIT *Surgery consult bunion Medications Medication SIG (Take, Route, Frequency, Duration) Notes Start Date End Date Status Medrol 4 MG as directed Orally 04/24/2024 Active Encounters Encounter Location Date Provider Diagnosis [facility] [address] [place], [place] [id number] 08/14/2024 KENYON FORREST Tailor's bunion of right foot M21.621 and Pain in right foot M79.671 Assessments Encounter Date Diagnosis (ICD Code) Assessment Notes Treatment Notes Treatment Clinical Notes Section Notes 08/14/2024 Tailor's bunion of right foot (ICD-10 - M21.621) 08/14/2024 Pain in right foot (ICD-10 - M79.671) 08/14/2024 Other Patient with ch bradley with his PCP to see if she can take either tramadol or toradol. We discussed both conservative and surgical treatment options. We discussed the intra-operative and post-operative treatment course. We discussed the risks and complications including, but not limited to: pain, infection, swelling, numbness, under-correction, over-correction, stiffness, no improvement, and need for further surgery. No guarantees were given, nor implied. Questions encouraged and answered. Consent reviewed and placed in chart. The following procedures are proposed - excision of 5th MTH right foot Plan Of Treatment Treatment Notes Assessment Notes Other Patient with check w ith his PCP to see if she can take either tramadol or toradol. We discussed both conservative and surgical treatment options. We discussed the intra-operative and post-operative treatment course. We discussed the risks and complications including, but not limited to: pain, infection, swelling, numbness, under-correction, over-correction, stiffness, no improvement, and need for further surgery. No guarantees were given, nor implied. Questions encouraged and answered. Consent reviewed and placed in chart. The following procedures are proposed - excision of 5th MTH right foot Next Appt Details Provider Name:KENYON C JULIO SPIVEY, 10/02/2024 07:30:00 AM, [address], [place], [address], Provider Name:KENYON Moya JULIO SPIVEY, 10/09/2024 03:10:00 PM, [address], [facility], [place], [place], [phone], Progress Notes * ANGELICA BLACK LDOB: 0 (44 yo F)Acc No.[id number]:08/14/2024 Patient: Michael ANGELICA VIDALES Provider: Kan Forrest DPM :1980 A ge:44 Y S ex:Female Date:08/14/2024 Address:[address] [place] [address] , [facility] Subjective: * Chief Complaints: * * Surgery consult bunion * HPI: H PI: [facility] to discuss surgery for a Tailor's bunion of the right foot. Patient states she also has a wound on the lateral side of her foot that is very painful. Patient has been covering wound with a bandage. ELIO LB.? * Medical History: * Surgical History: * [...] right foot - M21.621 (Primary) 2 . P ain in right foot - M79.671 Plan: * Treatment: * Procedure Codes: 7 3630 X-RAY EXAM OF FOOT, Modifiers: RT * Billing Information: * Visit Code: 77164 Office Visit, Est Pt., Level 4. * Procedure Codes: 95903 X-RAY EXAM OF FOOT. Modifiers: RT * ORK OPERATIONS MANAGER Sign off status: Completed true * Provider: Kan Forrest DPM Date: 0 08/14/2024 Generated for Dalia grace/Valeri/Ashwiniitting on: 0 09/26/2024 05:58 AM CDT History and Physical Notes * HPI (History of Present Illness) Category Sub-Category Detail Notes Category Not es HPI Follow Up Visit Patient presents for follow-up visit to discuss surgery for a Tailor's bunion of the right foot. Patient states she also has a wound on the lateral side of her foot that is very painful. Patient has been covering wound with a bandage. MA LB Examination Category Sub-Category Detail Notes Category [...]
--- OUTSIDE RECORDS SUMMARY | 2024-09-26 05:59 | XMS_ITS | Data Portability ---
Author Organization [facility], [facility] [address] [address] Assessment Encounter Date Assessment Date Assessment LastModified by Organization Details LastModified Time 01/19/2020 01/19/2020 Last UADS obtained on 12/18/2019 +buprenorphine consistent for prescribed medication Risk Assessment: 9- High Risk. Holly did not exhibit any behaviors today that would indicate illicit drug use. This assessment was obtained using the [place] Opioid Risk Tool on 11/06/2018 MME: 24 Ms. Guardado is present today with complaints of opioid dependence and pain management follow up for her low back pain, she reports that the pain occasionally radiates into her thighs. She reports that she also has had a migraine for about a week now. She reports that her current pain level is 4/10 with medication. She reports that her current mediation regimen does help and she denies any side effects or adverse reactions. She denies any cravings, relapse, or persistent thoughts. No other complaints or concerns at this time. No changes today Started suboxone on 06 November 2018 Covid-19 questionnaire was completed by patient today. Patient denies any lower respiratory problems, fever, having traveled in the last 14 days, and has not been in contact with anyone diagnosed with Covid-19. Patient was counseled on hand washing, and staying home as much as possible. Patient was educated on the positive effects of moderate exercise, stretching, healthy eating, and not to over use affected areas of the body. Patient was informed of how the above instructions could improve quality of life, decrease level of pain and decrease opioid use Medications prescribed today: Suboxone 8-2 mg sublingual film one film three times daily #90 for 30 days Will have patient follow up in 4 weeks or sooner if needed AN This note was completed using Electronic Health Records and/or voice recognition software to dictate portions of this document. Errors may be present despite proof reading intended to minimize such mistakes. Please contact the office for any clarifications or corrections. [email or web address] Not available 01/19/2020 14:34:09 Plan of Treatment Reminders Order Date Submit Date Provider Last Modified By Organization Details Last Modified Time Details Appointments None recorded. Lab unlisted lab - full panel 2019 [facility], [address], [address], [place], [address], 0 16:13:19 Referral None recorded. Procedures nerve conductio n study/EMG , upper extremity (PROC) - bilateral upper extremity EMG 2019 [facility], [address], [address], [place], [address], 0 19:22:09 lumbar radiofreq uency lesioning (PROC) - RFA of Left L3,L4,L5 w/ IV sedation to be done by Dr. Marr at [facility] 2019 020 [email or web address] Jorge Alberto Marr MD, [address], [address], [place], [address], 0 17:40:34 Surgeries None recorded. Imaging None recorded. Medication Orders Suboxone 8 mg-2 mg sublingua l film 2019 [facility], [facility], [place], [address], 0 18:36:27 Suboxone 8 mg-2 mg sublingua l film 2019 [facility], [address] [facility] [address], [place], [address], 0 18:36:12 Suboxone 8 mg-2 mg sublingua l film 2019 [facility], [facility], [facility] [address], [place], [address], 0 18:36:22 lidocaine 5 % topical patch 2019 020 [facility], [address] [facility] [address], [place], [address], 0 18:36:17 Suboxone 8 mg-2 mg sublingua l film 2019 020 [facility], [facility], [facility] [address], [place], [address], 0 14:35:52 Suboxone 8 mg-2 mg sublingua l film 2019 020 [facility], [address] [place] [address], [place], [address], 0 15:16:01 Suboxone 8 mg-2 mg sublingua l film 2019 020 [email or web address] Not available 0 16:53:01 Patient TargetsNo targets recorded. Patient Instructions Encounter Date Encounter Id Patient Instructions Last Modified By Organization Details Last Modified Time 11/20/2019 [id number] Last UADS obtain ed on 09/29/2019 +buprenorphine consistent for prescribed medication Medication List was reviewed and/or updated during this visit, including review of any jpax-qmx-eobuqpl medications, herbal therapies, and/or supplements. [place] Prescription Drug Monitoring program was reviewed today. Risk Assessment: 9- High Risk. Holly did not exhibit any behaviors today that would indicate illicit drug use. This assessment was obtained using the [place] Opioid Risk Tool on 11/06/2018 pt reports of pain in her lumbar region pt reports pain radiating down her bilateral posterior thighs pt denies any numbness or tingling at this time pt is currently scheduled for a Right L3, L4, L5 RFA on 12/05/2019 --will order left L3 L4 L5 RFA pt reports numbness in her bilateral hands pt reports the numbness is worse in her right hand pt reports the numbness is worse in her thumb, index and middle finger --will send referral for EMG of stephon UE to [facility] will fill medications w.o change pt will f.u in 4 weeks or prn RR Not available 11/20/2019 14:55:30 12/18/2019 [id number] UDS collected today. Will await final confirmation from the laboratory. She will be screened today for adherence to her treatment plan and medication compliance. Medication List was reviewed and/or updated during this visit, including review of any yjlh-mnh-ftkaxos medications, herbal therapies, and/or supplements. Allergies updated. [place] Prescription Drug Monitoring program was reviewed today, appropriate. Risk Assessment: 9- high Risk. Ms. Guardado did not exhibit any behaviors today that would indicate illicit drug use. This assessment was obtained using the [place] Opioid Risk Tool on 11/06/2018. MED: 0 according to the [place] Prescription Drug Monitoring Program. A sleep study is not indicated at this time. Ms. Guardado is in office today for a follow up regarding her chronic pain, opioid dependence, and medication refill. She reports pain inher low back with occasional radicular pain extending into her bilateral legs and stops right above her knee. She states she received 80% relief from a right RFA done on 12/05/2019. Ms. Guardado states that she still experiences occasional numbness in her right hand. An order for a nerve conduction study to [facility] was sent on 11/20/2019. [facility] reported back stating that they need a [place] authorization request put in before proceding with the nerve condution study. She denies any cravings, relapses or persistent thoughts at this time. She is stable on her current suboxone regimen and denies any side effects or adverse reactions. Patient reports she is currently attending counseling 2-3 times a month with [facility]. Patient was educated on the positive effects of moderate exercise, stretching, healthy eating, and not to over use affected areas of the body. Patient was informed of how the above instructions could improve quality of life, decrease level of pain, and decrease opioid use. The patient reports the analgesic regimen has been providing significant pain reduction and increases mobility and function. The patient denies recent onset of bowel or bladder incontinence or extremity weakness. No new injuries or illnesses reported. Patient agreed to adhere to our clinic's policies. She is adequately stable and compliant on current Suboxone regimen for opioid dependence. She denies any recent significant changes to her addiction management. She denies any relapses, cravings, and/or persistent thoughts. Patient was instructed to take medications only as directed and keep in a secure location. Reviewed benefits and risks of current medications. Potential risks, especially if misused, overdosed or used concurrently with illicit drugs or alcohol, include breathing suppression and even . Patient verbalized understanding and reports taking medications only as prescribed. Will continue to monitor for analgesia and compliance to opioid analgesic regimen. Pain contract on file from 11/06/2018. Medications prescribed today: 1. Suboxone 8 mg-[address] 1 film 3 times a day by sublingual route as directed #90 for 30 days. This medication is medically necessary. All questions and concerns have been addressed today. Follow up in 4 weeks. Transcribed by: Kayla Murphy CMA This note was completed using Electronic Health Records and/or voice recognition software to dictate portions of this document. Errors may be present despite proof reading intended to minimize such mistakes. Please contact the office for any clarifications or corrections. Not available 12/22/2019 13:00:59 02/16/2020 [id number] Last UADS obtain ed on 12/18/2019 +buprenorphine consistent for prescribed medication Medication List was reviewed and/or updated during this visit, including review of any hoyr-zbl-ggicvpo medications, herbal therapies, and/or supplements. Allergies updated. [place] Prescription Drug Monitoring program was reviewed today, appropriate. Risk Assessment: 9- high Risk. Ms. Guardado did not exhibit any behaviors today that would indicate illicit drug use. This assessment was obtained using the [place] Opioid Risk Tool on 11/06/2018. pt reports of pain in her lumbar region pt reports intermittent radicular pain to her bilateral thighs to her knees pt denies any numbness or tingling at this time pt completed a CT of her Lumbar spine (11 Jun 2018)-- slight retrolisthesis of L2 on L3. Mild degenerative changes of T12-L3, No CS, No NFS pt reports of pain in her cervical region pt reports pain radiating down her right arm to her hand pt reports numbness is also present in her hand Order for EMG was not improved through Pt is PCSing out of area through the in 3 weeks will fill medications for 3 months due to pt moving out of the state in 3 weeks pt will f.u prn RR Not available 02/16/2020 18:06:19 Reason for Referral None Reported. Results Created Date Observation Date Name Description Value Unit Range Abnormal Flag Note LastModifiedBy Organization Detail LastModifiedTime 12/18/19 20 12/22/2019 full panel amphetamine Negati ve < 500 Not Available [facility] [address], [place], [address], 12/22/2019 16:13:19 12/18/19 20 12/22/2019 full panel barbiturates Negati ve < 200 Not Available [facility] [address], [place], [address], 12/22/2019 16:13:19 12/18/19 20 12/22/2019 full panel benzodiazepi brandy Positi ve < 200 high Not Available [facility] [address], [place], [address], 12/22/2019 16:13:19 12/18/19 20 12/22/2019 full panel buprenorphin e Positi ve < 20 high Not Available [facility] [address], [place], [address], 12/22/2019 16:13:19 12/18/19 20 12/22/2019 full panel cocaine Negati ve < 150 Not Available [facility] [address], [place], [address], 12/22/2019 16:13:19 12/18/19 20 12/22/2019 full panel ecstasy Negati ve < 500 Not Available [facility] [address], [place], [address], 12/22/2019 16:13:19 12/18/1912/22/2019 full panel heroin 6AM Negati ve < 10 Not Available [facility] [address], [place], [address], 12/22/2019 16:13:19 12/18/19 20 12/22/2019 full panel methadone metabolite Negati ve < 1000 Not Available [facility] [address], [place], [address], 12/22/2019 16:13:19 12/18/19 20 12/22/2019 full panel opiates Negati ve < 300 Not Available [facility] [address], [place], [address], 12/22/2019 16:13:19 12/18/19 20 12/22/2019 full panel oxycodone Negati ve < 300 Not Available [facility] [address], [place], [address], 12/22/2019 16:13:19 12/18/19 20 12/22/2019 full panel pcp Negati ve < 25 Not Available [facility] [address], [place], [address], 12/22/2019 16:13:19 12/18/19 20 12/22/2019 full panel creatinine Normal >= 20 normal Not Available [facility] [address], [place], [address], 12/22/2019 16:13:19 12/18/19 20 12/22/2019 full panel pH Normal 4.5 - 9 normal Not Available [facility] [address], [place], [address], 12/22/2019 16:13:19 12/18/19 20 12/22/2019 full panel specific gravity Normal NG/mL 1.004 - 1.036 normal Not Available [facility] [address], [place], [address], 12/22/2019 16:13:19 12/18/19 20 12/22/2019 full panel oxidant Normal <= 200 normal Not Available [facility] [address], [place], [address], 12/22/2019 16:13:19 12/18/19 20 12/22/2019 full panel temperature Normal F manual normal Not Available [facility] [address], [place], [address], 12/22/2019 16:13:19 Result Notes None recorded. Problems Name Problem SNOMED Code Status Onset Date Resolution Date Notes Provider Name and Address Organization Details Recorded Time Chronic pain 11923630 Active 2018 Giselle hong [facility] 9 15:36:58 Opioid dependence 85300974 Active 2018 Giselle hong [facility] 9 15:57:42 Low back pain 116440445 Active 2018 Giselle hong [facility] 9 15:57:49 Sacroiliac joint pain 599921341 Active 2018 Giselle hong [facility] 9 15:57:58 Fibromyalg ia 480269124 Active 2018 Giselle hong [facility] 9 15:58:07 Central sleep apnea syndrome 27655806 Active 2018 Giselle hong [facility] 9 15:58:40 Chronic neck pain 0562506682308 Active 2018 Bhavik Garcia MD [address] [facility] [address], [place], [address] , [facility] 9 00:15:21 Thompson's neuroma of right foot 3762484650345 08 Active 2018 Bhavik Garcia MD [address] [facility] [address], [place], [address] , [facility] 9 23:50:15 Lumbar spondylosi s 822943731 Active 2018 Eddie hong [facility] 9 15:21:27 Spasm 93014846 Active 2018 [facility] 9 15:21:29 Numbness of hand 781199124 Active [facility] 0 14:33:48 Problem Notes None recorded. Procedures Surgical History Date Name Laterality Status Provider Name and Address Organization Details Recorded Time 09/08/19 20 Lumbar Medial Branch Blocks With Sedation completed Bhavik Garcia MD [address], [place], [address], [facility] 09/08/2019 14:27:56 03/27/20 19 Sacroiliac Joint Steroid Injection Under Fluoroscopy completed Bhavik Garcia MD [address], [place], [address], [facility] 03/27/2019 18:35:31 02/14/20 19 Lumbar Medial Branch Block completed Bhavik Garcia MD [address], [place], [address], [facility] 02/13/2019 19:37:43 03/16/20 12 repair of hernia of abdominal wall completed [facility] 11/05/2018 15:22:20 bariatric operative procedure completed [facility] 11/05/2018 15:26:48 section completed [facility] 11/05/2018 15:20:01 Cholecystectomy completed [facility] 11/05/2018 15:23:52 closure of patent foramen ovale completed [facility] 11/05/2018 15:25:01 exploratory laparotomy completed [facility] 11/05/2018 15:26:14 Gastric bypass for obesity completed [facility] 11/05/2018 15:26:35 Imaging Results None recorded. Procedure Notes None recorded. Medical Equipment None Reported. Allergies Allergen ID Allergen Name Allergen Category Reaction Reaction Severity Criticality Documentation Date Start Date Code Code System Note Provider Name and Address Organization Details Recorded Time zolpidem medicatio n other Not available Not available 11/05/2018 72928 RxNorm [facility] 0 12:09:52 oxycodone medicatio n other Not available Not available 11/05/2018 7804 RxNorm Tadeo Kitchen [facility] 0 12:09:49 lorazepam medicatio n other Not available Not available 11/05/2018 6470 RxNorm [facility] 0 12:09:47 Medications Name Sig Start Date Stop Date Status Note LastModified by Organization Details LastModified Time cyclobenz aprine 10 mg tablet Take 1 tablet 3 times a day by oral route as needed. active Not Available Not Available No t Available atorvasta tin 40 mg tablet active Not Available Not Available Not Available buspirone 5 mg tablet active Not Available Not Available Not Available pilocarpi ne 5 mg tablet TAKE 1 TABLET BY MOUTH THREE TIMES DAILY NEEDED FOR LOW SALVIA active Not Available Not Available No t Available quetiapin e 300 mg tablet Take 1 tablet every day by oral route at bedtime for 30 days. active Not Available Not Available No t Available lidocaine 4 % topical patch 1 patch every 12 hours active Not Available Not Available No t Available Vitamin C 500 mg tablet Take 1 tablet every day by oral route as directed for 30 days. 12/17 completed Not Available Not Available Not Available trazodone 50 mg tablet Take 1 tablet every day by oral route at bedtime for 30 days. 12/04 completed Not Available Not Available Not Available IBU 800 mg tablet Take 1 tablet 3 times a day by oral route as directed for 30 days. 12/04 completed Not Available Not Available Not Available aspirin 325 mg tablet Take 1 tablet every day by oral route as directed for 30 days. active Not Available Not Available No t Available fluconazo le 150 mg tablet 01/18 completed Not Available Not Available Not Available sumatript an 100 mg tablet Take 1 tablet every day by oral route as needed for 30 days. active Not Available Not Available No t Available Synthroid 150 mcg tablet Take 1 tablet every day by oral route as directed for 30 days. 12/17 completed Hypothyr oidism 2009 Not Available Not Available Not Available urea 40 % topical cream 01/18 completed Not Available Not Available Not Available naloxone 0.4 mg/mL injection solution 01/18 completed Not Available Not Available Not Available Lipitor 80 mg tablet Take 1 tablet every day by oral route at bedtime for 30 days. active Not Available Not Available No t Available ondansetr on HCl 4 mg tablet active Not Available Not Available No t Available prednison e 20 mg tablet 12/17 completed Not Available Not Available Not Available Prilosec 40 mg capsule,d elayed release Take 1 capsule every day by oral route as directed for 30 days. 01/18 completed Not Available Not Available Not Available quetiapin e 200 mg tablet active Not Available Not Available Not Available Wellbutri n SR 150 mg tablet, 12 hr sustained -release 12/04 completed Not Available Not Available Not Available clotrimaz ole 1 % vaginal cream 01/18 completed Not Available Not Available Not Available Provigil 100 mg tablet Take 2 tablets every day by oral route as needed for 30 days. 12/04 completed for somnolen cy Not Available Not Available Not Available fexofenad ine 180 mg tablet active Not Available Not Available No t Available Tamiflu 75 mg capsule 12/17 completed Not Available Not Available Not Available sulfameth oxazole 800 mg-trimet hoprim 160 mg tablet 12/04 completed Not Available Not Available Not Available aspirin 81 mg tablet,de layed release active Not Available Not Available Not Available Wellbutri n SR 100 mg tablet, 12 hr sustained -release 12/04 completed Not Available Not Available Not Available tramadol 50 mg tablet 12/17 completed Not Available Not Available Not Available quetiapin e 100 mg tablet 12/04 completed Not Available Not Available Not Available ketorolac 30 mg/mL (1 mL) injection solution active Not Available Not Available Not Available oxycodone 15 mg tablet 12/17 completed Not Available Not Available Not Available modafinil 200 mg tablet active Not Available Not Available Not Available aspirin 325 mg tablet,de layed release 12/04 completed Not Available Not Available Not Available oxycodone -acetamin ophen 10 mg-325 mg tablet 12/17 completed Not Available Not Available Not Available phenazopy ridine 100 mg tablet active Not Available Not Available Not Available benzonata te 100 mg capsule 12/17 completed Not Available Not Available Not Available cephalexi n 500 mg capsule 01/18 completed Not Available Not Available Not Available cyanocoba yasmine (vit B-12) 1,000 mcg/mL injection solution active Not Available Not Available Not Available ferrous sulfate 325 mg (65 mg iron) tablet 12/04 completed Not Available Not Available Not Available prednison e 50 mg tablet 12/17 completed Not Available Not Available Not Available lidocaine 5 % topical patch APPLY 2 PATCH BY TRANSDER MAL ROUTE ONCE DAILY (MAY WEAR UP TO 12HOURS. ) active Not Available Not Available No t Available indometha jeffery 25 mg capsule active Not Available Not Available Not Available docusate sodium 100 mg capsule Take 1 capsule twice a day by oral route as needed for 30 days. active Not Available Not Available No t Available omeprazol e 20 mg capsule,d elayed release active Not Available Not Available Not Available Tylenol 325 mg tablet 1-2 tablets every 6 hours as needed 12/04 completed Not Available Not Available Not Available Monurol 3 gram oral packet 12/04 completed Not Available Not Available Not Available nystatin 100,000 unit/gram topical powder 12/04 completed Not Available Not Available Not Available polyethyl jarvis glycol 3350 17 gram/dose oral powder Take 17 g every day by oral route as directed for 30 days. 12/04 completed Not Available Not Available Not Available levofloxa jeffery 750 mg tablet 12/17 completed Not Available Not Available Not Available zolpidem 10 mg tablet Take 2 tablets every day by oral route at bedtime for 30 days. active Not Available Not Available No t Available methylpre dnisolone 4 mg tablets in a dose pack active Not Available Not Available Not Available propranol ol 20 mg tablet 12/04 completed Not Available Not Available Not Available Percocet 5 mg-325 mg tablet Take 1 tablet every 12 hours by oral route as needed for 30 days. 12/17 completed Not Available Not Available Not Available PreviDent 5000 Plus 1.1 % cream active Not Available Not Available Not Available Janet nt Syringe 3 mL 25 gauge x 1 active Not Available Not Available Not Available Synthroid 137 mcg tablet active Not Available Not Available Not Available Vitamin D3 25 mcg (1,000 unit) tablet 12/04 completed Not Available Not Available Not Available acyclovir 5 % topical cream active Not Available Not Available Not Available vitamin I41-pveuw acid injection solution Take 1 mL every month by injectio n route as directed for 30 days. 12/04 completed Not Available Not Available Not Available topiramat e 50 mg tablet active Not Available Not Available Not Available nitrofura ntoin monohydra te/macroc rystals 100 mg capsule 12/04 completed Not Available Not Available Not Available duloxetin e 30 mg capsule,d elayed release 12/04 completed Not Available Not Available Not Available duloxetin e 60 mg capsule,d elayed release 12/04 completed Not Available Not Available Not Available [employer] 12/04 completed Not Available Not Available Not Available Mucus Relief 400 mg tablet 12/17 completed Not Available Not Available Not Available pregabali n 150 mg capsule Take 1 capsule 3 times a day by oral route as directed for 30 days. active Not Available Not Available No t Available Rozerem 8 mg tablet 12/17 completed Not Available Not Available Not Available Ambien CR 12.5 mg tablet,ex tended release 12/17 completed Not Available Not Available Not Available calcium 1,000mg daily active Not Available Not Available No t Available Nasonex prn 01/18 completed Not Available Not Available Not Available Topamax 30mg TID 12/04 completed Not Available Not Available Not Available Miralax prn 11/21 completed Not Available Not Available Not Available Cymbalta 90mg daily 12/04 completed Not Available Not Available Not Available mvi, adult no.1 with vit K daily 12/04 completed Not Available Not Available Not Available ProAir HFA 90 mcg/actua tion aerosol inhaler 12/04 completed Not Available Not Available Not Available Seroquel 50 mg tablet 12/17 completed Not Available Not Available Not Available Bystolic 5 mg tablet Take 1 tablet every day by oral route as directed for 30 days. active Not Available Not Available No t Available oxycodone 10 mg tablet 12/17 completed Not Available Not Available Not Available Voltaren 1 % topical gel APPLY 2 GRAM TO THE AFFECTED AREA(S) BY TOPICAL ROUTE 4 TIMES PER DAY active Not Available Not Available No t Available buprenorp mariangel 8 mg-naloxo ne 2 mg sublingua l film Place 1 film 3 times a day by sublingu al route as directed for 30 days. active Not Available Not Available No t Available Vitamin D3 50 mcg (2,000 unit) capsule Take 1 capsule every day by oral route as directed for 30 days. 12/04 completed Not Available Not Available Not Available OxyContin 15 mg tablet,cr ush resistant ,extended release 12/17 completed Not Available Not Available Not Available OxyContin 30 mg tablet,cr ush resistant ,extended release 12/17 completed Not Available Not Available Not Available OxyContin 20 mg tablet,cr ush resistant ,extended release Take 1 tablet every 12 hours by oral route as directed for 30 days. 12/17 completed Not Available Not Available Not Available OxyContin 10 mg tablet,cr ush resistant ,extended release 12/17 completed Not Available Not Available Not Available Proctosol HC 2.5 % topical cream perineal applicato r active Not Available Not Available Not Available Vitals Date Recorded Body height Heart rate Body temperature Systolic blood pressure Diastolic blood pressure Provider Name and Address Organization Details Last Updated DateTime 11/20/2019 177.8 cm 96 /min 97.3 [degF] 142 mm[Hg] 88 mm[Hg] [facility] 0 14:55:47 Date Recorded Body height Body temperature Provider N wendy and Address Organization Details Last Updated DateTime 12/18/2019 177.8 cm 100.7 [degF] Kayla [facility] 12/22/2019 12:35:58 Date Recorded Body height Provider Name an d Address Organization Details Last Updated DateTime 01/19/2020 177.8 cm Nehal [facility] 01/19/2020 14:24:53 Date Recorded Body height Heart rate Systolic blood pressure Diastolic blood pressure Provider Name and Address Organization Details Last Updated DateTime 02/16/2020 177.8 cm 94 /min 126 mm[Hg] 91 mm[Hg] [facility] 02/16/2020 18:12:39 Social History Question Answer Notes LastModified by Organizat ion Details LastModified Time Tobacco Smoking Status Never Smoker G[place]elle [place], [place] - [facility] 11/06/2018 15:34:28 Do You Have An Advance Directive? Yes [email or web address] Information not available 11/06/2018 What Is Your Level Of Alcohol Consumption? None [email or web address] Information not available 11/06/2018 Auto Related Injury? No Information not available 11/06/2018 Are You Blind Or Do You Have Difficulty Seeing? Yes [email or web address] Information not available 11/06/2018 What Is Your Level Of Caffeine Consumption? Moderate Information not available 11/06/2018 How Much Tobacco Do You Chew? None Information not available 11/06/2018 Are You Currently Employed? No [email or web address] Information not available 11/06/2018 What Type Of Diet Are You Following? REGULAR [email or web address] Information not available 11/06/2018 Education 2 Year College Information not available 11/06/2018 Which Of Your Hands Is Dominant? Right [email or web address] Information not available 11/06/2018 Live Alone Or With Others? With Others [email or web address] Information not available 11/06/2018 Marital Status [email or web address] Informatio n not available 11/06/2018 What Was The Date Of Your Most Recent Tobacco Screening? 01/14/2019 Information not available 02/06/2019 What Types Of Sporting Activities Do You Participate In? No Information not available 08/26/2019 General Stress Level Medium Information not available 11/06/2018 Work Related Injury? No Information not available 11/06/2018 Sex: Unknown Functional Status Question Answer Note LastModified by Organizat ion Details LastModified Time Do you have difficulty walking or climbing stairs? Yes [email or web address] Information not available 11/06/2018 What is your exercise level? Occasional [email or web address] Information not available 11/06/2018 Mental Status None recorded. Family History Relationship Description Onset Age of this Age Resolved Age Notes LastModified by Organization Details LastModified Time Maternal Grandmother Hypertensive disorder [email or web address] Not available 11/06 15:34:10 Maternal Grandmother Heart disease Not available 11/06 15:34:10 Mother Disorder of thyroid gland [email or web address] Not available 11/06 15:34:10 Mother Osteoporosis Not [email or web address] ilable 11/06/2018 15:34:10 Father Diabetes mellitus [email or web address] Not available 11/06 15:34:10 Father Depressive disorder [email or web address] Not available 11/06 15:34:10 Father Anxiety disorder [email or web address] Not available 11/06 15:34:10 Brother Depressive disorder [email or web address] Not available 11/06 15:34:10 Brother Anxiety disorder Not available 11/06 15:34:10 Sister Disorder of thyroid gland Not available 11/06 15:34:10 Medical History Condition Response Thyroid Disease Y Kidney Stones N Hernia Y Glaucoma N Lung Disease N Depression N COPD N Irregular Heart Beats N History of chest pain N Arthritis N History of Blood Clots Y Shingles N Mental Disorder N Cancer N Stroke Y High Cholesterol N Muscular Dystrophy N Liver Disease N Fractures N Fibromyalgia Y Headaches Y Irritable Bowel Syndrome N Kidney Disease N HIV N Scoliosis N Anxiety Y Ear or Hearing Problems N Fatigue Y Joint Pain Y Anemia N Multiple Sclerosis N Back Pain Y Ulcers N Diabetes N Seizures/Epilepsy N Blood Disorder N Heart Murmur N Congestive Heart Failure (CHF) N Kidney Failure N Weakness of Limb Y AIDS N Asthma N Lupus N Peripheral Vascular Disease N Sleep Disorder Y Hepatitis N Heart Disease N Hearing Aid Worn N Hypertension N Gynecological History Statement/Question Response Abnormal Pap N Obstetrics History GPAL:G 0 P 0 0 0 0 Past Encounters Encounter ID Performer Location Encounter Start Date Encounter Closed Date Diagnosis/Indication Diagnosis SNOMED-CT Code Diagnosis ICD10 Code Diagnosis Note [id number] Bhavik Garcia MD Main Office [address] [facility] [address] [address] 11/06/2018 14:13:34 11/08/2018 15:40:28 Chronic pain 60155389 G89.29 Pt hs been on opioids since 2012Pt has been weaning down on the opioids for the past year.Pt has noticed withdrawal symptoms Long-term drug therapy 752712324 Z79.899 Opioid dependence 154503 00 F11.20 weaned of Provigil in Oct 2018 Low back pain 233178087 M54.5 CT L-spine (11 Jun 2018)-- slight retrolisth esis of L2 on L3. Mild degenerati ve changes of T12-L3, No CS, No NFS Sacroiliac joint pain 20 6461212 M53.3 Patient to obtain records Fibromyalgia 230175288 M 79.7 on Lyrica 150 mg po bid Central sl eep apnea syndrome 48900833 G47.31 Bi-Pap machine -JBER Chronic neck pain 344957 [address] C-spine (11 Jun 2018) -- mild DDD of the lower C-spine. No acute injury CT T-spine (11 Jun 2018)-- No abnormalit y [id number] Bhavik Garcia MD Main Office [address] [facility] [address] [address] 11/21/2018 13:45:29 11/26/2018 16:57:24 Chronic pain 36581225 G89.29 Pt hs been on opioids since 2012Pt has been weaning down on the opioids for the past year.Pt has noticed withdrawal symptoms Opioid dependence 798757 00 F11.20 weaned of Provigil in Oct 2018 Constipation 48553048 K5 9.00 recommend using miralax on a daily basis Central sl eep apnea syndrome 58946570 G47.31 Bi-Pap machine -JBER Low back pain 329243914 M54.5 CT L-spine (11 Jun 2018)-- slight retrolisth esis of L2 on L3. Mild degenerati ve changes of T12-L3, No CS, No NFS Fibromyalgia 003755575 M 79.7 on Lyrica 150 mg po bid [id number] Bhavik Garcia MD Main Office [address] [address] 12/11/2018 12:32:03 12/13/2018 14:05:44 Chronic pain 15699977 G89.29 Pt hs been on opioids since 2012Pt has been weaning down on the opioids for the past year.Pt has noticed withdrawal symptoms Low back pain 457537921 M54.5 CT L-spine (11 Jun 2018)-- slight retrolisth esis of L2 on L3. Mild degenerati ve changes of T12-L3, No CS, No NFS Sacroiliac joint pain 20 4520605 M53.3 Patient to obtain records Opioid dependence 775494 00 F11.20 started suboxone on 06 November 2018 weaned of Provigil in Oct 2018 Jay's n euroma of right foot 4169416506 48024 G57.61 scheduled for Mort[facility] Neuroma excision on 12 Dec 2018 from the right foot Pt plans to use the buprenorph ine for pain controlmay also use Ibuprofen / TylenolIf worse pain than expected will use short course of oxycodone Central sl eep apnea syndrome 02010411 G47.31 Bi-Pap machine -JBER Fibromyalgia 555835187 M 79.7 on Lyrica 150 mg po bid [id number] Bhavik Garcia MD Main Office [address] [facility] [address] [place] [address] 12/17/2018 13:08:21 12/23/2018 15:48:29 Chronic pain 37540114 G89.29 Pt hs been on opioids since 2012Pt has been weaning down on the opioids for the past year.Pt has noticed withdrawal symptoms Opioid dependence 989273 started suboxone on 06 November 2018 weaned of Provigil in Oct 2018 Jay's n euroma of right foot [id number] 47335 G57.61 scheduled for [facility]ons Neuroma excision on 12 Dec 2018 from the right foot Pt plans to use the buprenorph ine for pain controlmay also use Ibuprofen / TylenolIf worse pain than expected will use short course of oxycodone Low back pain 459471632 M54.5 CT L-spine (11 Jun 2018)-- slight retrolisth esis of L2 on L3. Mild degenerati ve changes of T12-L3, No CS, No NFS Sacroiliac joint pain 20 5600033 M53.3 Patient to obtain records Central sl eep apnea syndrome 38989489 G47.31 Bi-Pap machine -JBER Fibromyalgia 220707476 M 79.7 on Lyrica 150 mg po bid [id number] Bhavik Garcia MD Main Office [address] [facility] [address] [place] [address] 01/14/2019 14:33:23 01/22/2019 13:33:27 Opioid dependence 69153068 1. started suboxone on 06 November 2018 weaned of Provigil in Oct 2018 Thompson's n euroma of right foot [id number] 35592 G57.61 Mortons Neuroma excision on 12 Dec 2018 from the right foot on MOLLY (Dr. Collier) Pt plans to use the buprenorph ine for pain controlmay also use Ibuprofen / TylenolIf worse pain than expected will use short course of oxycodone Sacroiliac joint pain 20 4164457 M53.3 Patient to obtain records Central sl eep apnea syndrome 60840557 G47.31 Bi-Pap machine -JBER Fibromyalgia 361713561 M 79.7 on Lyrica 150 mg po bid Spasm 28317433 R25.2 Took over Cyclobenza la Lumbar spondylosis [address] L-spine (11 Jun 2018)-- slight retrolisth esis of L2 on L3. Mild degenerati ve changes of T12-L3, No CS, No NFS Ordered BL MBB L3-5 [id number] Bhavik Garcia MD Main Office [address] [place] [address] 02/10/2019 18:15:08 02/18/2019 18:01:34 Opioid dependence 14941630 F11.20 started suboxone on 06 November 2018 weaned of Provigil in Oct 2018 Lumbar spondylosis [address] L-spine (11 Jun 2018)-- slight retrolisth esis of L2 on L3. Mild degenerati ve changes of T12-L3, No CS, No NFS scheduled for MBB#1 stephon L3,L4,L5 on 13 Feb 2019 Thompson's n euroma of right foot [id number] 11543 G57.61 Mortons Neuroma excision on 12 Dec 2018 from the right foot on MOLLY (Dr. Collier) healing well Sacroiliac joint pain 20 0933893 M53.3 Patient to obtain records Central sl eep apnea syndrome 53675234 G47.31 Bi-Pap machine -JBER Fibromyalgia 272909430 M 79.7 on Lyrica 150 mg po bid Spasm 07332675 R25.2 Took over Cyclobenza la Chronic pain 13857600 G8 9.29 Pt hs been on opioids since 2012Pt has been weaning down on the opioids for the past year.Pt has noticed withdrawal symptoms [id number] Bhavik Garcia MD Main Office [address] [facility] [address] [place] [address] 02/13/2019 18:47:41 02/20/2019 16:21:24 Lumbar spondylosis 548389785 M47.816 CT L-spine (11 Jun 2018)-- slight retrolisth esis of L2 on L3. Mild degenerati ve changes of T12-L3, No CS, No NFS completed stephon L3,L4, L5 MBB#1 on 13 Feb 2019 [id number] Bhavik Garcia MD Main Office [address] [facility] [address] [place] [address] 03/10/2019 17:38:53 03/18/2019 18:30:29 Opioid dependence 49789103 F11.20 started suboxone on 06 November 2018 weaned of Provigil in Oct 2018 Lumbar spondylosis [address] L-spine (11 Jun 2018)-- slight retrolisth esis of L2 on L3. Mild degenerati ve changes of T12-L3, No CS, No NFS completed stephon L3,L4, L5 MBB#1 on 13 Feb 2019 -- reports>80 % pain reductionw ill schedule MBB#2 L3,L4,L5 Thompson's n euroma of right foot 9038772989 51072 G57.61 Mortons Neuroma excision on 12 Dec 2018 from the right foot on JBER (Dr. Collier) healing well Central sl eep apnea syndrome 58489611 G47.31 Bi-Pap machine -JBER Fibromyalgia 151212026 M 79.7 on Lyrica 150 mg po bid Spasm 56254104 R25.2 Took over Cyclobenza la Long-term drug therapy 273078860 Z79.899 [id number] Bhavik Garcia MD Main Office [address] [facility] [address] [place] [address] 03/27/2019 17:36:09 04/03/2019 13:06:15 Sacroiliac joint pain 924282294 M53.3 completed left SI jt injection on 27 Mar 2019 [id number] Bhavik Garcia MD Main Office [address] [facility] [address] [place] [address] 04/08/2019 13:42:28 04/15/2019 13:49:15 Opioid dependence 08372653 F11.20 started suboxone on 06 November 2018 Lumbar spondylosis [address] L-spine (11 Jun 2018)-- slight retrolisth esis of L2 on L3. Mild degenerati ve changes of T12-L3, No CS, No NFS completed stephon L3,L4, L5 MBB#1 on 13 Feb 2019 -- reports>80 % pain reduction Schedued for MBB#2 L3,L4,L5 on 24 Apr 2019 Central sl eep apnea syndrome 27904845 G47.31 Bi-Pap machine -JBER Fibromyalgia 678281235 M 79.7 on Lyrica 150 mg po bid Spasm 25125781 R25.2 Long-term drug therapy 064149743 Z79.899 Sacroiliac joint pain 20 2371612 M53.3 completed left SI jt injection on 27 Mar 2019--80% pain reduction [id number] Bhavik Garcia MD Main Office [address] [facility] [address] [place] [address] 05/06/2019 13:38:05 05/13/2019 14:09:45 Opioid dependence 61858415 F11.20 started suboxone on 06 November 2018 Sacroiliac joint pain 20 4378991 M53.3 completed left SI jt injection on 27 Mar 2019--80% pain reduction Fibromyalgia 946218063 M 79.7 on Lyrica 150 mg po bid Spasm 46502170 R25.2 Central sl eep apnea syndrome 93485814 G47.31 Bi-Pap machine -JBER Long-term drug therapy 512962769 Z79.899 Lumbar spondylosis [address] L-spine (11 Jun 2018)-- slight retrolisth esis of L2 on L3. Mild degenerati ve changes of T12-L3, No CS, No NFS completed stephon L3,L4, L5 MBB#1 on 13 Feb 2019 -- reports>80 % pain reduction Scheduled for MBB#2 L3,L4,L5 on 12 May 2019 [id number] Bhavik Garcia MD Main Office [address] [address] 06/03/2019 15:40:20 06/16/2019 16:00:37 Opioid dependence 49596872 F11.20 started suboxone on 06 November 2018 Lumbar spondylosis [address] L-spine (11 Jun 2018)-- slight retrolisth esis of L2 on L3. Mild degenerati ve changes of T12-L3, No CS, No NFS completed stephon L3,L4, L5 MBB#1 on 13 Feb 2019 -- reports>80 % pain reduction will order MBB#2 L3,L4,L5 Sacroiliac joint pain 20 0553649 M53.3 completed left SI jt injection on 27 Mar 2019--80% pain reduction Fibromyalgia 298867287 M 79.7 on Lyrica 150 mg po bid Spasm 57666530 R25.2 Central sl eep apnea syndrome 23879248 G47.31 Bi-Pap machine -JBER Thompson's n euroma of right foot 2066322194 67121 G57.61 Mortons Neuroma excision on 12 Dec 2018 from the right foot on JBER (Dr. Collier) healing well Chronic pain 65519496 G8 9.29 Pt hs been on opioids since 2012Pt has been weaning down on the opioids for the past year.Pt has noticed withdrawal symptoms [id number] Bhavik Garcia MD Main Office [address] [place], [place] [address] [facility] [address] [place] [address] 06/30/2019 18:09:50 07/10/2019 17:49:54 Opioid dependence 72080661 F11.20 started suboxone on 06 November 2018 Chronic neck pain 898872 [address] C-spine (11 Jun 2018) -- mild DDD of the lower C-spine. No acute injury CT T-spine (11 Jun 2018)-- No abnormalit y Neck pain 01716331 M54.2 Lumbar spondylosis [address] L-spine (11 Jun 2018)-- slight retrolisth esis of L2 on L3. Mild degenerati ve changes of T12-L3, No CS, No NFS completed stephon L3,L4, L5 MBB#1 on 13 Feb 2019 -- reports>80 % pain reduction will order MBB#2 L3,L4,L5 [id number] Bhavik Garcia MD Main Office [address] [address] 07/29/2019 13:42:17 08/04/2019 18:41:56 Opioid dependence 24468217 F11.20 started suboxone on 06 November 2018 Chronic pain 16628639 G8 9.29 Pt hs been on opioids since 2013Pt has been weaning down on the opioids for the past year.Pt has noticed withdrawal symptoms Lumbar spondylosis [address] L-spine (11 Jun 2018)-- slight retrolisth esis of L2 on L3. Mild degenerati ve changes of T12-L3, No CS, No NFS completed stephon L3,L4, L5 MBB#1 on 13 Feb 2019 -- reports>80 % pain reduction will order MBB#2 L3,L4,L5 Sacroiliac joint pain 20 3054888 M53.3 completed left SI jt injection on 27 Mar 2019--80% pain reduction Long-term drug therapy 968925929 Z79.899 [id number] Bhavik Garcia MD Main Office [address] [address] 08/26/2019 14:00:21 08/29/2019 14:10:10 Opioid dependence 50734205 F11.20 started suboxone on 06 November 2018 Chronic pain 85182392 G8 9.29 Lumbar spondylosis [address] L-spine (11 Jun 2018)-- slight retrolisth esis of L2 on L3. Mild degenerati ve changes of T12-L3, No CS, No NFS completed stephon L3,L4, L5 MBB#1 on 13 Feb 2019 -- reports>80 % pain reduction will order MBB#2 stephon L3,L4,L5 Sacroiliac joint pain 20 1120379 M53.3 completed left SI jt injection on 27 Mar 2019--80% pain reduction Numbness of hand 6435999 04 R20.0 will order stephon UE EMG / NCS to r/o CTSwill set up with nocturnal wrist splints Spasm 54917230 R25.2 [id number] Bhavik Garcia MD Main Office [address] [address] 09/08/2019 13:31:26 09/12/2019 14:03:08 Lumbar spondylosis 445682348 M47.816 CT L-spine (11 Jun 2018)-- slight retrolisth esis of L2 on L3. Mild degenerati ve changes of T12-L3, No CS, No NFS completed stephon L3,L4, L5 MBB#1 on 13 Feb 2019 -- reports>80 % pain reduction completed stephon MBB#2 on 08 Sep 2019prepro cedure pain was 01/22 [id number] Yolis espinoza, Main Office [address] [address] 09/25/2019 13:48:32 09/25/2019 18:41:45 Lumbar spondylosis 561228870 M47.896 CT L-spine (11 Jun 2018)-- slight retrolisth esis of L2 on L3. Mild degenerati ve changes of T12-L3, No CS, No NFS completed stephon L3,L4, L5 MBB#1 on 13 Feb 2019 -- reports>80 % pain reduction L3, L4, L5 MBB #2 on 09/08/19: 80% relief Opioid dependence 256894 00 F11.20 Chronic pain 90695821 G8 9.29 Patient takes medication s for this condition. Numbness of hand 7520598 04 R20.0 UE EMG have been ordered. Pt. needs to schedule [id number] Bhavik Garcia MD Main Office [address] [address] 10/23/2019 13:59:53 10/31/2019 14:03:53 Opioid dependence 16547570 F11.20 started suboxone on 06 November 2018 Lumbar spondylosis [address] L-spine (11 Jun 2018)-- slight retrolisth esis of L2 on L3. Mild degenerati ve changes of T12-L3, No CS, No NFS completed stephon L3,L4, L5 MBB#1 on 13 Feb 2019 -- reports>80 % pain reduction Completed MBB#2 stephon L3,L4,L5 08 Sep 2019-80% relief Sacroiliac joint pain 20 3860707 M53.3 completed left SI jt injection on 27 Mar 2019--80% pain reduction Numbness of hand 2344867 04 R20.0 Occasional numbness right hand index middle and ring finger Chronic neck pain 345928 [address] C-spine (11 Jun 2018) -- mild DDD of the lower C-spine. No acute injury CT T-spine (11 Jun 2018)-- No abnormalit y [id number] Bhavik Garcia MD Main Office [address] [address] 11/20/2019 14:00:56 11/26/2019 18:42:05 Lumbar spondylosis 618484488 M47.816 CT L-spine (11 Jun 2018)-- slight retrolisth esis of L2 on L3. Mild degenerati ve changes of T12-L3, No CS, No NFS completed stephon L3,L4, L5 MBB#1 on 13 Feb 2019 -- reports>80 % pain reduction Completed MBB#2 stephon L3,L4,L5 08 Sep 2019-80% relief will order Left RFA L3,L4,L5sc heduled for right RFA L3,L4,L5 on 05 Dec 2019 Opioid dependence 456535 00 F11.20 started suboxone on 06 November 2018 Sacroiliac joint pain 20 2158167 M53.3 completed left SI jt injection on 27 Mar 2019--80% pain reduction Numbness of hand 6334411 04 R20.0 Occasional numbness right hand index middle and ring fingerwill order NCS / EMG of the UE Chronic neck pain 689255 [address] C-spine (11 Jun 2018) -- mild DDD of the lower C-spine. No acute injury CT T-spine (11 Jun 2018)-- No abnormalit y [id number] Jorge Alberto Marr MD Main Office [address] [employer] [address] [address] 12/05/2019 12:11:05 12/17/2019 19:36:10 [id number] Bhavik Garcia MD Main Office [address] [employer] [address] [address] 12/18/2019 14:00:17 12/29/2019 13:43:26 Opioid dependence 57878579 F11.20 started suboxone on 06 November 2018Goes to [place] [facility] 2-3 times a month Lumbar spondylosis [address] L-spine (11 Jun 2018)-- slight retrolisth esis of L2 on L3. Mild degenerati ve changes of T12-L3, No CS, No NFS completed stephon L3,L4, L5 MBB#1 on 13 Feb 2019 -- reports>80 % pain reductionC ompleted MBB#2 stephon L3,L4,L5 08 Sep 2019-80% relief completed right RFA L3,L4,L5 on 05 Dec 2019---rep orts 80% pain reduction Sacroiliac joint pain 20 8991830 M53.3 completed left SI jt injection on 27 Mar 2019--80% pain reduction Numbness of hand 3716838 04 R20.0 Occasional numbness right hand index middle and ring fingerneed to reorder NCS / EMG of the UE to [facility] PT Chronic neck pain 737251 [address] C-spine (11 Jun 2018) -- mild DDD of the lower C-spine. No acute injury CT T-spine (11 Jun 2018)-- No abnormalit y Long-term drug therapy 848428591 Z79.899 [id number] Bhavik Garcia MD Main Office [address] [place], [place] [address] [address] [address] 01/19/2020 13:53:44 01/30/2020 19:48:04 Opioid dependence 41362941 F11.20 started suboxone on 06 November 2018Goes to [place] [employer] [facility] 2-3 times a month Lumbar spondylosis [address] L-spine (11 Jun 2018)-- slight retrolisth esis of L2 on L3. Mild degenerati ve changes of T12-L3, No CS, No NFS completed stephon L3,L4, L5 MBB#1 on 13 Feb 2019 -- reports>80 % pain reductionC ompleted MBB#2 stephon L3,L4,L5 08 Sep 2019-80% relief completed right RFA L3,L4,L5 on 05 Dec 2019---rep orts 80% pain reduction Sacroiliac joint pain 20 9260274 M53.3 completed left SI jt injection on 27 Mar 2019--80% pain reduction Numbness of hand 6208705 04 R20.0 Occasional numbness right hand index middle and ring fingerneed to reorder NCS / EMG of the UE to [facility] PT Chronic neck pain [id number] C-spine (11 Jun 2018) -- mild DDD of the lower C-spine. No acute injury CT T-spine (11 Jun 2018)-- No abnormalit y [id number] Bhavik Garcia MD Main Office [address] [place] [phone] 02/16/2020 17:03:53 02/23/2020 18:27:24 Opioid dependence [id number] F11.20 started suboxone on 06 November 2018[facility] month Numbness of hand [id number] R20.0 Occasional numbness right hand index middle and ring fingerneed to reorder NCS / EMG of the UE to Wyses PTOrder was not improved through tricarePt is PCSing out of area through the in 3 weeks Sacroiliac joint pain 20 [id number] M53.3 completed left SI jt injection on 27 Mar 2019--80% pain reduction Pt reports LBP with radicular down to the knees Lumbar spondylosis [id number] L-spine (11 Jun 2018)-- slight retrolisth esis of L2 on L3. Mild degenerati ve changes of T12-L3, No CS, No NFS completed stephon L3,L4, L5 MBB#1 on 13 Feb 2019 -- reports>80 % pain reductionC ompleted MBB#2 stephon L3,L4,L5 08 Sep 2019-80% relief completed right RFA L3,L4,L5 on 05 Dec 2019---rep orts 80% pain reduction Chronic neck pain [id number] C-spine (11 Jun 2018) -- mild DDD of the lower C-spine. No acute injury Health Concerns Section Related Observation LastModified by Organization Detai ls LastModified Time None Recorded Concern Status LastModified by Organization Details LastModified Time None Recorded Advance Directives Directive Y: Payers Encounter Date Sequence Insurance Name Policy Number Policy Wilks Covered Member ID Wilks Member ID Guarantor Name 11/20/2019 1 [employer] () Damir Guardado [id number] Holly Guardado 12/05/2019 1 [employer] () Damir Guardado [id number] Holly Guardado 12/18/2019 1 [employer] () Damir Guardado [id number] Holly Guardado 01/19/2020 1 [employer] () Damir Guardado [id number] Holly Guardado 02/16/2020 1 [employer] () Damir Guardado [id number] Holly Guardado Notes Date Note Type Note Provider Name and Address Organization Details Recorded Time 11/20/2019 text/html [facility] HPI PAINReported bystaff.Location:[facility]; both Neck; right Shoulder; both Arm; both Wrist; right Hand; both Upper Back; both Mid Back; both Lower Back); both Abdomen; both Hip; both Knee; right Ankle; right Foot Pain Bettermassage; relieved by heat; Medications; Resting; Lying Down; Sitting; injection; Physical Therapy Pain WorseChange in Weather; Certain Movements; Bending; Running; Walking; Lifting; Squatting; Twisting; Climbing Stairs; Straining Pain Descriptionaching; Throbbing; shooting; character: stabbing; Sharp; character: dull Onset/Timing:Evening Past Treatments to Alleviate Pain:Accupuncture; bedrest; steroid injection; Medial Branch Block; Pain medication; Physical Therapy; Psychiatrist; Radio Frequency; Selective Nerve Root Block; transcutaneous electrical nerve stimulator (tens unit) Other Sources of Pain MedicationYes Pain ManagementYes Pain Scale Average:Level of pain: 6 Pain Timeframe:Constant Ms. Guardado is here for a follow up regarding her chronic pain. Patient states that she has pain in her lower back with pain radiating down to her bilateral posterior thighs to her knees. Patient states that she also has pain in her cervical region with pain radiating down her right arm. Patient states that her current medication regimen is working well to manage her pain at this time. Patients current pain level is at a 5/10. RR Bhavik Garcia MD [address], [place], [address], [facility] 11/24/2019 00:10:25 12/18/2019 text/html [facility] HPI PAINReported bystaff.Location:bot h head; both Neck; right Shoulder; both Arm; both Wrist; right Hand; both Upper Back; both Mid Back; both Lower Back); both Abdomen; both Hip; both Knee; right Ankle; right Foot Pain Bettermassage; relieved by heat; Medications; Resting; Lying Down; Sitting; injection; Physical Therapy Pain WorseChange in Weather; Certain Movements; Bending; Running; Walking; Lifting; Squatting; Twisting; Climbing Stairs; Straining Pain Descriptionaching; Throbbing; shooting; character: stabbing; Sharp; character: dull Onset/Timing:Evening Past Treatments to Alleviate Pain:Accupuncture; bedrest; steroid injection; Medial Branch Block; Pain medication; Physical Therapy; Psychiatrist; Radio Frequency; Selective Nerve Root Block; transcutaneous electrical nerve stimulator (tens unit) Other Sources of Pain MedicationYes Pain ManagementYes Pain Scale Average:Level of pain: 6 Pain Timeframe:Constant Ms. Guardado is in office today for a follow up regarding her chronic pain, opioid dependence, and medication refill. She reports pain inher low back with occasional radicular pain extending into her bilateral legs and stops right above her knee. She states she received 80% relief from a right RFA done on 12/05/2019. Ms. Guardado states that she still experiences occasional numbness in her right hand. She denies any cravings, relapses or persistent thoughts at this time. She is stable on her current suboxone regimen and denies any side effects or adverse reactions. Patient reports she is currently attending counseling 2-3 times a month with [facility]. Her current pain level is 3/10 with medication.MHA, BAND SAWING MACHINE OPERATOR Bhavik Garcia MD [address], [place], [address], [facility] 12/22/2019 13:14:26 01/19/2020 text/html [facility] HPI PAINReported bystaff.Location:bot h head; both Neck; right Shoulder; both Arm; both Wrist; right Hand; both Upper Back; both Mid Back; both Lower Back); both Abdomen; both Hip; both Knee; right Ankle; right Foot Pain Bettermassage; relieved by heat; Medications; Resting; Lying Down; Sitting; injection; Physical Therapy Pain WorseChange in Weather; Certain Movements; Bending; Running; Walking; Lifting; Squatting; Twisting; Climbing Stairs; Straining Pain Descriptionaching; Throbbing; shooting; character: stabbing; Sharp; character: dull Onset/Timing:Evening Past Treatments to Alleviate Pain:Accupuncture; bedrest; steroid injection; Medial Branch Block; Pain medication; Physical Therapy; Psychiatrist; Radio Frequency; Selective Nerve Root Block; transcutaneous electrical nerve stimulator (tens unit) Other Sources of Pain MedicationYes Pain ManagementYes Pain Scale Average:Level of pain: 6 Pain Timeframe:Constant Ms. Guardado is present today with complaints of opioid dependence and pain management follow up for her low back pain, she reports that the pain occasionally radiates into her thighs. She reports that she also has had a migraine for about a week now. She reports that her current pain level is 4/10 with medication. She reports that her current mediation regimen does help and she denies any side effects or adverse reactions. She denies any cravings, relapse, or persistent thoughts. No other complaints or concerns at this time. Bhavik Garcia MD [facility] [address], [phone], [facility] - [facility] 01/20/2020 23:50:24 02/16/2020 text/html [facility] HPI PAINReported [facility].Location:bot h head; both Neck; right Shoulder; both Arm; both Wrist; right Hand; both Upper Back; both Mid Back; both Lower Back); both Abdomen; both Hip; both Knee; right Ankle; right Foot Pain Bettermassage; relieved by heat; Medications; Resting; Lying Down; Sitting; injection; Physical Therapy Pain WorseChange in Weather; Certain Movements; Bending; Running; Walking; Lifting; Squatting; Twisting; Climbing Stairs; Straining Pain Descriptionaching; Throbbing; shooting; character: stabbing; Sharp; character: dull Onset/Timing:Evening Past Treatments to Alleviate Pain:Accupuncture; bedrest; steroid injection; Medial Branch Block; Pain medication; Physical Therapy; Psychiatrist; Radio Frequency; Selective Nerve Root Block; transcutaneous electrical nerve stimulator (tens unit) Other Sources of Pain MedicationYes Pain ManagementYes Pain Scale Average:Level of pain: 6 Pain Timeframe:Constant Ms. Guardado is here for a follow up regarding her chronic pain. Patient states that she has pain in her lower back with pain radiating down her bilateral legs. Patient states that she has pain in her cervical region with pain radiating down her right arm. Patient states that her current medication regimen is working well to manage her pain at this time. Patients current pain level is at a 3/10. RR Bhavik Garcia MD [address], [place], [address], [place] [facility] 02/18/2020 23:20:45 OBGyn Episode No OBEpisode recorded.
--- OUTSIDE RECORDS SUMMARY | 2024-09-26 05:59 | XMS_ITS | Patient Health Summary ---
Author Organization [facility] Address [address] [place] [address] Care Team Providers Care Kier Operator Name Role Phone Unavailable Primary Care Provider Unavailabl e Note from [facility],non-owned Affiliates and Associated Physician Practices is amultiple site organization consisting of ambulatory clinics and hospital sitesin [place], [place], [place] and [place]. This disclosure is being madepursuant to the Care Everywhere program and may not contain all information available regarding this patient. Last updated 18.[facility] Social History Tobacco Use Types Packs/Day Years Used Date Smoking Tobacco: Never Smokeless Tobacco: Never Tobacco Cessation:Counseling Given: Not Answered PHQ-2 Answer Date Recorded PHQ2 TOTAL SCORE 3 11/08/2022 Sex and Gender Information Value Date Recorded Sex Assigned at Not on file Gender Identity Not on file Sexual Orientation Not on file Procedures * DERMATOPATHOLOGY(Performed 03/02/2022) Results * DERMATOPATHOLOGY (03/02/2022 12:00 AM CDT) Case Report Dermatopathology Report Case: [id number] Authorizing Provider: Niles George MD Collected: 03/02/2022 12:00 AM Ordering Location: [facility] D[facility] Lab Received: 03/02/2022 05:15 PM Pathologist: Katelyn Menard MD Specimen: Skin, right preauricular 2 6:16 PM CDT DERMATOPATHOLOGY LABORATORY Final Diagnosis Specimen A. SKIN, right preauricular: COMPOUND MELANOCYTIC NEVUS (D22.39) PRESENT AT MARGIN 2 6:16 PM CDT DERMATOPATHOLOGY LABORATORY Clinical History Irr nevus. Check margins 2 6:16 PM CDT DERMATOPATHOLOGY LABORATORY Gross Description Specimen A: Received is one formalin filled container labeled with the patients name and designated right preauricular. The specimen consists of a shave removal measuring 5x5x1 mm, inked. Jar 0. 2 6:16 PM CDT DERMATOPATHOLOGY LABORATORY Microscopic Description Specimen A. SKIN, right preauricular: There are nests of melanocytes at the dermal-epidermal junction and within the dermis. This lesion is present at the margin of the specimen. 2 6:16 PM CDT DERMATOPATHOLOGY LABORATORY Disclaimer An external and internal positive and negative controls are appropriate for the histochemical, immunohistochemical and immunofluorescence stain(s) in this case (if any), except where stated explicitly. The performance characteristics of the stain(s) cited in this report were developed and its performance characteristic determined by the Dermatopathology Laboratory at [facility], directed by Dr. Miguel Viramontes. These tests need not be, and therefore are not, approved by the [place] Food and Drug Administration. The tests are used for clinical purposes. Billing Codes Specimen Charges Stain Charges 54262 1 2 6:16 PM CDT DERMATOPATHOLOGY LABORATORY Embedded Images 2 6:16 PM CDT DERMATOPATHOLOGY LABORATORY Pathology/Cytolog y TISSUE SPECIMEN FROM SKIN / Unknown 03/02/2022 03/02/2022 5:15 PM CDT Niles George MD LAB - PATHOLOGY/CYTO LOGY ORDERABLES DERMATOPATHOLOGY LABORATORY [facility] - Department of Dermatology [address], [address] [phone]
--- OUTSIDE RECORDS SUMMARY | 2024-09-26 05:59 | XMS_ITS | Referral Summary ---
Author Organization [facility] Address [address] [place] [address] Care Team Providers Care Brick Loader Name Role Phone Unavailable Primary Care Provider Unavailabl e Source Comments [facility],non-owned Affiliates and Associated Physician Practices is amultiple site organization consisting of ambulatory clinics and hospital sitesin [place], [place], [place] and [place]. This disclosure is being madepursuant to the Care Everywhere program and may not contain all information available regarding this patient. Last updated 18.[facility] Social History Tobacco Use Types Packs/Day Years Used Date Smoking Tobacco: Never Smokeless Tobacco: Never Tobacco Cessation:Counseling Given: Not Answered PHQ-2 Answer Date Recorded PHQ2 TOTAL SCORE 3 11/08/2022 Sex and Gender Information Value Date Recorded Sex Assigned at Not on file Gender Identity Not on file Sexual Orientation Not on file Plan of Treatment Not on file
--- OUTSIDE RECORDS SUMMARY | 2024-09-26 05:59 | XMS_ITS | Clinical Summary ---
Author Organization [facility] Address [address] [place] [address] Care Team Providers Care Cut Out Stitcher Name Role Phone Unavailable Primary Care Provider Unavailabl e Source Comments [facility],non-owned Affiliates and Associated Physician Practices is amultiple site organization consisting of ambulatory clinics and hospital sitesin [place], [place], [place] and [place]. This disclosure is being madepursuant to the Care Everywhere program and may not contain all information available regarding this patient. Last updated 18.[facility] [employer] Social History Tobacco Use Types Packs/Day Years Used Date Smoking Tobacco: Never Smokeless Tobacco: Never Tobacco Cessation:Counseling Given: Not Answered PHQ-2 Answer Date Recorded PHQ2 TOTAL SCORE 3 11/08/2022 Sex and Gender Information Value Date Recorded Sex Assigned at Not on file Gender Identity Not on file Sexual Orientation Not on file Plan of Treatment Health Maintenance Due Date Last Done Comments LIPID TESTING 1980 MAMMOGRAM 1980 PAP SMEAR 1980 HIV SCREENING 1995 HEPATITIS C SCREENING 05/13/1998 DTAP/TDAP/TD VACCINES (1 - Tdap) 1999 HEPATITIS B VACCINE (1 of 3 - 19+ 3-dose series) 1999 COVID-19 VACCINE (2023-2 5 season) 2024 10/21/2020, 09/28/2020 INFLUENZA VACCINE (#1) 2024 DEPRESSION SCREENING 07/16/2024 10/10/2022 ZOSTER VACCINE (1 of 2) 2030 HIB VACCINE Aged Out No longer eligi ble based on patient's age to complete this topic HPV VACCINE Aged Out No longer eligi ble based on patient's age to complete this topic MENINGOCOCCAL (Group B) VACCINE SHARED DECISION-MAKING Aged Out No longer eligible based on patient's age to complete this topic MENINGOCOCCAL GROUPS A/C/Y/W VACCINE Aged Out No longer eligible b ased on patient's age to complete this topic PNEUMOCOCCAL VACCINE Aged Out No long er eligible based on patient's age to complete this topic
--- OUTSIDE RECORDS SUMMARY | 2024-09-26 05:59 | XMS_ITS | Encounter Summary ---
Author Organization [facility] Address [address] [place] [address] Care Team Providers Care Steam Power Plant Operator Name Role Phone Unavailable Primary Care Provider Unavailabl e Encounter Details Date Type Department Care Team (Late st Contact Info) Description 03/02/2022 Lab Requisition [facility] Lab [address] [place] [address] Niles George MD [address] [place] [address] Social History Tobacco Use Types Packs/Day Years Used Date Smoking Tobacco: Never Assessed Sex and Gender Information Value Date Recorded Sex Assigned at Not on file Gender Identity Not on file Sexual Orientation Not on file documented as of this encounter Plan of Treatment Not on file documented as of this encounter Procedures Procedure Name Priority Date/Time Associated Diagnosis Comments DERMATOPATHOLOGY Routine 03/02/2022 12:0 0 AM CDT documented in this encounter Results * DERMATOPATHOLOGY (03/02/2022 12:00 AM CDT) Case Report Dermatopathology Report Case: [id number] Authorizing Provider: Niles George MD Collected: 03/02/2022 12:00 AM Ordering Location: [facility] Received: 03/02/2022 05:15 PM Pathologist: [...] characteristic determined by the Dermatopathology Laboratory at [facility], directed by Dr. Miguel Viramontes. These tests need not be, and therefore are not, approved by the [place] Food and Drug Administration. The tests are used for clinical purposes. Billing Codes Specimen Charges Stain Charges 71224 1 2 6:16 PM CDT DERMATOPATHOLOGY LABORATORY Embedded Images 2 6:16 PM CDT DERMATOPATHOLOGY LABORATORY Pathology/Cytolog y TISSUE SPECIMEN FROM SKIN / Unknown 03/02/2022 03/02/2022 5:15 PM CDT Niles George MD LAB - PATHOLOGY/CYTO LOGY ORDERABLES DERMATOPATHOLOGY LABORATORY [facility] - Department of Dermatology [address], [address] [phone] documented in this encounter Visit Diagnoses Not on filedocumented in this encounter
--- OUTSIDE RECORDS SUMMARY | 2024-09-26 05:59 | XMS_ITS | Referral Summary ---
Author Organization [address] Address [address] [address] Care Team Providers Care Head Of Merchandise Buying Name Role Phone Saul Ruelas MD Primary Care Provider [phone] Abiodun Red MD Unavailable [phone] Issac Amador MD Unavailable [phone] Encounters Date Type Department Care Team Description 09/16/2024 Orders Only [facility] [address] [place] [phone] Vicenta Early PA 09/08/2024 Results Follow-Up [facility] [address] [place] [phone] Issac Amador MD 09/08/2024 10:21 AM AUTOMATIC GRINDING MACHINE OPERATOR - 09/08/2024 11:59 PM AUTOMATIC GRINDING MACHINE OPERATOR Hospital Encounter [address] [phone] Sicca complex; Polyarthralgia Discharge Disposition: Discharge to home or self care 09/01/[address] [phone] Vicenta Early PA 09/01/2024 10:30 AM AUTOMATIC GRINDING MACHINE OPERATOR Office Visit [facility] [address] [place] [phone] Vicenta Early PA Sicca complex (Primary Dx); Polyarthralgia 07/01/2024 10:00 AM AUTOMATIC GRINDING MACHINE OPERATOR Office Visit [facility] [place] [address] [facility] [address] [place] [phone] Tawanna Kee NP TONY (obstructive sleep apnea) (Primary Dx); Other insomnia from Last 3 Months Allergies No known active allergies Medications atorvastatin [...] seen Assessment & Plan (09/01/2024 12:03 PM AUTOMATIC GRINDING MACHINE OPERATOR): 44-year-old female with PMHx of HTN, [...] dosing due to hx GERD. Will contact supervisor shrimp pond for records. Follow up in 2 weeks. Sooner if needed. Seen with Dr. Amador. TONY (obstructive sleep apnea) 10/05/2020 Assessment & Plan (07/01/2024 10:25 AM AUTOMATIC GRINDING MACHINE OPERATOR): Patient continue with CPAP at 8 cm water pressure while sleeping. She was intolerable of higher pressures in the past. DME is [employer]. Assessment & Plan (06/28/2023 11:59 AM AUTOMATIC GRINDING MACHINE OPERATOR): Due to continued symptoms, the patient will continue CPAP at 8 cm water pressure. The patient has an elevated AHI, however she is intolerant of higher pressure. Denied need for supplies. DME [employer] Assessment & Plan (06/27/2022 12:02 PM AUTOMATIC GRINDING MACHINE OPERATOR): Patient continue to wear CPAP at 8 cm water pressure while sleeping. Her DME is [employer]. The patient did not tolerate an increase in her pressures in the past. Assessment & Plan (06/30/2021 11:05 AM AUTOMATIC GRINDING MACHINE OPERATOR): Patient continue to wear CPAP at 8 cm water pressure while sleeping. Her DME is [employer]. The patient is already registered her CPAP [...] patient denied need for supplies. DME company [employer]. The patient and I discussed the recall [...] open while sleeping. The DME company is [employer]. The patient is benefitting from CPAP therapy. Other insomnia 10/05/2020 Assessment & Plan (07/01/2024 10:25 AM AUTOMATIC GRINDING MACHINE OPERATOR): The patient continues with Lunesta 3 mg on most nights. Assessment & Plan (06/28/2023 11:58 AM AUTOMATIC GRINDING MACHINE OPERATOR): Due to continued symptoms, the patient will continue Lunesta 3 mg nightly. I have refilled the medication and will refill for 1 year Patient is aware that she should wear her CPAP machine if taking the medication. Assessment & Plan (06/27/2022 12:02 PM AUTOMATIC GRINDING MACHINE OPERATOR): The patient will continue with Lunesta 3 mg p.o. at bedtime to treat insomnia. Assessment & Plan (06/30/2021 11:04 AM AUTOMATIC GRINDING MACHINE OPERATOR): The patient will continue with Lunesta 3 mg p.o. at bedtime to treat insomnia. Assessment & Plan (04/07/2021 11:40 AM CDT): The patient will continue with Lunesta 3 mg p.o. at bedtime to treat insomnia. Assessment & Plan (10/05/2020 11:45 AM CDT): The patient will continue to follow with primary care physician in regards to insomnia and treatment options. Social History Tobacco Use Types Packs/Day Years [...] on file Legal Sex Female 9:00 AM AUTOMATIC GRINDING MACHINE OPERATOR Gender Identity Female 09/06/2024 3:20 PM AUTOMATIC GRINDING MACHINE OPERATOR Sexual Orientation Not on file Last Filed Vital Signs Vital Sign Reading Time Taken Comments Blood Pressure 134/76 09/01/2024 10:16 AM AUTOMATIC GRINDING MACHINE OPERATOR Pulse 106 09/01/2024 10:16 AM AUTOMATIC GRINDING MACHINE OPERATOR Temperature 36.4 C (97.6 F) 07/01/2024 9:59 AM AUTOMATIC GRINDING MACHINE OPERATOR Respiratory Rate 18 07/01/2024 9:59 AM AUTOMATIC GRINDING MACHINE OPERATOR Oxygen Saturation 96% 09/01/2024 10:16 AM AUTOMATIC GRINDING MACHINE OPERATOR Inhaled Oxygen Concentration - - Weight 127 kg (280 lb) 09/01/2024 10:16 AM AUTOMATIC GRINDING MACHINE OPERATOR Height 177.8 cm (5' 10 ) 09/01/2024 10:16 AM AUTOMATIC GRINDING MACHINE OPERATOR Body Mass Index 40.18 09/01/2024 10:16 AM AUTOMATIC GRINDING MACHINE OPERATOR Plan of Treatment Not on file Procedures Procedure Name Priority Date/Time Associated Diagnosis Comments SCAN - RADIOLOGY/IMAGING 09/16/2024 4:34 PM AUTOMATIC GRINDING MACHINE OPERATOR US HAND COMPLETE Schedule Routine, Read Routine (OP Routine) 09/08/2024 11:12 AM AUTOMATIC GRINDING MACHINE OPERATOR Sicca complex Polyarthralgia ERYTHROCYTE SEDIMENTATION RATE Routine 09/01/2024 11:37 AM AUTOMATIC GRINDING MACHINE OPERATOR Sicca complex Polyarthralgia CRP (ACUTE PHASE) Routine 09/01/2024 11: 37 AM AUTOMATIC GRINDING MACHINE OPERATOR Sicca complex Polyarthralgia COMPREHENSIVE METABOLIC PANEL Routine 09/01/2024 11:37 AM AUTOMATIC GRINDING MACHINE OPERATOR Sicca complex Polyarthralgia CBC WITH AUTO DIFFERENTIAL Routine 09/01/2024 11:37 AM AUTOMATIC GRINDING MACHINE OPERATOR Sicca complex Polyarthralgia MISCELLANEOUS LAB TEST Routine 09/01/2024 10:09 AM AUTOMATIC GRINDING MACHINE OPERATOR Sicca complex Polyarthralgia from Last 3 Months Results * SCAN - RADIOLOGY/IMAGING (09/16/2024 4:34 PM AUTOMATIC GRINDING MACHINE OPERATOR) Anatomical Region Laterality Modality Other Vicenta LANDA Final Result * US Hand Complete (09/08/2024 11:12 AM AUTOMATIC GRINDING MACHINE OPERATOR) Anatomical Region Laterality Modality Hand N/A Ultrasound Issac Amador MD IM US PROCEDURES Final Result * (ABNORMAL) CBC with auto differential (09/01/2024 11:37 AM AUTOMATIC GRINDING MACHINE OPERATOR) WBC 7.9 3.8 - 10.8 Thousand/u [...] [facility] Blood 09/01/2024 11:3 7 AM AUTOMATIC GRINDING MACHINE OPERATOR 09/01/2024 11:37 AM AUTOMATIC GRINDING MACHINE OPERATOR Issac Amador MD LAB BLOOD ORDERABLES Final Res ult Performing Organization Address [facility] Co de Phone Number [facility] [address] [place] [address] * Erythrocyte sedimentation rate (09/01/2024 11:37 AM AUTOMATIC GRINDING MACHINE OPERATOR) Erythrocyte sedimentation rate 9 < OR = 20 mm/h [facility] Blood 09/01/2024 11:3 7 AM AUTOMATIC GRINDING MACHINE OPERATOR 09/01/2024 11:37 AM AUTOMATIC GRINDING MACHINE OPERATOR Issac Amador MD LAB BLOOD ORDERABLES Final Res ult Performing Organization Address [facility] de Phone Number [facility] [address] [place] [address] * CRP (acute phase) (09/01/2024 11:37 AM AUTOMATIC GRINDING MACHINE OPERATOR) C-RP <3.0 <8.0 mg/L [facility] Blood 09/01/2024 11:3 7 AM AUTOMATIC GRINDING MACHINE OPERATOR 09/01/2024 11:37 AM AUTOMATIC GRINDING MACHINE OPERATOR Issac Amador MD LAB BLOOD ORDERABLES Final Res ult Performing Organization Address [facility] de Phone Number [facility] [address] [place] [address] * Comprehensive metabolic panel (09/01/2024 11:37 AM AUTOMATIC GRINDING MACHINE OPERATOR) Glucose 71 65 - 99 mg/dL [facility] [...] [facility] Blood 09/01/2024 11:3 7 AM AUTOMATIC GRINDING MACHINE OPERATOR 09/01/2024 11:37 AM AUTOMATIC GRINDING MACHINE OPERATOR us Issac Amador MD LAB BLOOD ORDERABLES Final Res ult [facility] [address] [place] [address] * [facility] CTD - Miscellaneous Test (09/01/2024 10:09 AM AUTOMATIC GRINDING MACHINE OPERATOR) Miscellaneous us Issac Amador MD LAB BLOOD ORDERABLES Final Res ult EXTERNAL LAB from Last 3 Months Insurance [facility] Address: [address] [place] [address] [employer] [place] [facility] [address] [place] [phone] BLUE ACCESS CHOICE [place] [facility] [address] [place] [address] Care Teams Head Of Merchandise Buying Relationship Specialty Start Date End Date Saul Ruelas MD PCP - General Family Medicine 08/25/20 Abiodun Red MD [address] [place] [address] Referring Physician Neurology 11/27/22 Issac Amador MD [address] [place] [address] Consulting Physician Rheumatology 07/23/24
--- OUTSIDE RECORDS SUMMARY | 2024-09-26 05:59 | XMS_ITS | Continuity of Care Document ---
Author Organization [facility] Address [address] [place] [address] Phone Care Team Providers Care Director Dental Services Name Role Phone Miguel Harrison PT Unavailable [...] Diagnoses Date Provider Providers Copied on Encounter [facility], [place], [place], [id number], tel:[phone] [place] No Information Hunter Rivera. . [facility], [place], [place], [address], tel:[phone] [place] No Information Hunter Contreras . [facility], [address], [place], [place], [id number], tel:[phone] [place] No Information Hunter Contreras . [facility], [address], [place], [place], [address], tel:[phone] [place] No Information Hunter Contreras . [facility], [address], [place], [place], [id number], [place] tel:[phone] [place] No Information Hunter Contreras . [facility], [address] [place] [address], [id number], tel:[phone] [place] No Information Hunter Sanabria Family History Family Member Type Diagnosis Age At Onset No Information Payers Payer name Insurance type Covered alliance party ID Authoriza tion(s) No Information Social History Type Description Quantity [...]
--- OUTSIDE RECORDS SUMMARY | 2024-09-26 05:59 | XMS_ITS ---
Author Organization [facility] Address [address] [facility] [address] [place], [place] [address] Care Team Providers Care Bank Consultant Name Role Phone KENYON FORREST Unavailable [phone] Darci Woody Unavailable Unavailable REASON FOR VISIT *Injection follow-up Medications Medication SIG (Take, Route, Frequency, Duration) Notes Start Date End Date Status Medrol 4 MG as directed Orally 04/24/2024 Active Encounters Encounter Location Date Provider Diagnosis [facility] [address] [place], [place] [id number] 06/26/2024 KENYON FORREST Tailor's bunion of right foot M21.621 ; Bunionette of left foot M21.622 ; Pain in right foot M79.671 and Left foot pain M79.672 Assessments Encounter Date Diagnosis (ICD Code) Assessment Notes Treatment Notes Treatment Clinical Notes Section Notes 06/26/2024 Tailor's bunion of right foot (ICD-10 - M21.621) Following skin prep, a total of 3 ccs of a 1-1-1 mix of 0.5% marcaine plain, Kenalog, and dexamethasone sodium phosphate was injected into the patients bilateral 5th MTH 06/26/2024 Bunionette of left foot (ICD-10 - M21.622) 06/26/2024 Pain in right foot (ICD-10 - M79.671) 06/26/2024 Left foot pain (ICD-10 - M79.672) Plan Of Treatment Treatment Notes Assessment Notes Tailor's bunion of right foot Following skin prep, a total of 3 ccs of a 1-1-1 mix of 0.5% marcaine plain, Kenalog, and dexamethasone sodium phosphate was injected into the patients bilateral 5th MTH Next Appt Details Provider Name:KENYON SPIVEY, 10/02/2024 07:30:00 AM, [address], [place], [address], Provider Name:KENYON SPIVEY, 10/09/2024 03:10:00 PM, [address], [facility] [address], [place], [place], [id number], Progress Notes * SOFIA ANGELICA LDOB: 0 (44 yo F)Acc No.[id number]:06/26/2024 Patient: ANGELICA ADKINS Provider: Kan Forrest DPM :1980 A ge:44 Y S ex:Female Date:06/26/2024 Address:[address] [place] [address] , [facility] Subjective: * Chief Complaints: * * Injection follow-up * HPI: H PI: Follow Up Visit P atient presents for follow-up visit for right foot pain. She state she got 1 injection last visit, and it helped, but she is starting to have pain again. She would like to get a 2nd injection if possible. Patient states their problem is improving. MA: robert. * Medical History: * Surgical History: * [...] MG Tablet Therapy Pack as directed Orally Objective: * Vitals: * Examination: C onstitutional: [...] palpation . Tailors Bunion T here is no evidence of tailors bunion deformity. right foot . Gait T here is [...] foot pain - M79.672 Plan: * Treatment: * Procedure Codes: 2 0605 DRAIN/INJECT, JOINT/BURSA, Modifiers: 50 * Billing Information: * Visit Code: 80836 Office Visit, Est Pt., Level 3. Modifiers: 25 * Procedure Codes: 00064 DRAIN/INJECT, JOINT/BURSA. Modifiers: 50 * Y HALL SUPERVISOR Sign off status: Completed true * Provider: Kan Forrest DPM Date: 08/27/2023 Generated for Dalia grace/Faxing/eTransmitting on: 0 09/26/2024 05:59 AM CDT History and Physical Notes * HPI (History of Present Illness) Category Sub-Category Detail Notes Category Not es HPI Follow Up Visit Patient presents for follow-up visit for right foot pain. She state she got 1 injection last visit, and it helped, but she is starting to have pain again. She would like to get a 2nd injection if possible. Patient states their problem is improving. MA: sea Examination Category Sub-Category Detail Notes Category Not [...] pain on palpation Tailors Bunion There is no evidence of tailors bunion deformity. right foot Foot Structure The foot structure [...]
--- OUTSIDE RECORDS SUMMARY | 2024-09-26 05:59 | XMS_ITS | Clinical Summary ---
Author Organization [facility] Address [address] [place] [address] Care Team Providers Care Spray Painter Helper Name Role Phone Robert García MD Primary Care Provider + Allergies No known active allergies Medications topiramate 50 MG Tab 100 in AM, 50 at bedtime 09/16/19 21 Active VANISHPOINT SYR 3CC/25GX1 25G X 1 3 ML Misc 02/29/20 20 Active SODIUM FLUORIDE, DENTAL GEL, 1.1 % Gel Active pregabalin 150 MG capsule pregabalin 150 mg capsule 07/09/20 20 Active pilocarpine 5 MG tablet pilocarpine 5 mg tablet TAKE 1 TABLET BY MOUTH THREE TIMES DAILY NEEDED FOR LOW SALVIA 09/16/19 21 Active omeprazole 20 MG capsule 06/23/20 20 Active nebivolol (BYSTOLIC) 5 MG tablet Bystolic 5 mg tablet Active levothyroxine (SYNTHROID) 137 MCG tablet Synthroid 137 mcg tablet 09/16/19 21 Active fluticasone propionate 50 MCG/ACT nasal spray 09/16/19 21 Active fexofenadine 180 MG tablet fexofenadine 180 mg tablet 09/16/19 21 Active Eszopiclone 3 MG Tab 09/07/19 21 Active cyclobenzaprine 10 MG tablet cyclobenzaprine 10 mg tablet 09/29/19 21 Active buprenorphine-nal oxone 8-2 MG SL Tab SL tablet 1 tablet. 10/01/19 21 Active atorvastatin 40 MG tablet atorvastatin 40 mg tablet 09/16/19 21 Active ASPIRIN LOW DOSE 81 MG tablet 09/17/19 21 Active amitriptyline 25 MG tablet 08/17/19 21 Active rimegepant (NURTEC) 75 MG disintegrating tabletIndications :Migraine without aura, not intractable, without status migrainosus Take 1 tablet (75 mg total) by mouth daily as needed for Migraine. 16 tablet 02/22/20 22 Active Additional Information Patient not taking.Reported on 10/11/2022 methylPREDNISolon e, ROLAND, (MEDROL) 4 MG tabletIndications :Status migrainosus Follow package directions 1 each 03/17/20 22 Active divalproex ER (DEPAKOTE ER) 250 MG 24 hr tabletIndications :Migraine without aura, not intractable, without status migrainosus Take 1 tablet (250 mg total) by mouth daily. 30 tablet 03/23/20 22 Active escitalopram (LEXAPRO) 10 MG tablet Take 1 tablet (10 mg total) by mouth daily. Active lidocaine (LIDODERM) 5 % 09/04/19 23 Active rimegepant (NURTEC) 75 MG disintegrating tabletIndications :Migraine without aura, not intractable, without status migrainosus Take 1 tablet (75 mg total) by mouth as needed for Migraine. 16 tablet 10/28/19 23 Active divalproex ER (DEPAKOTE) 250 MG 24 hr tabletIndications :Migraine without aura, not intractable, without status migrainosus TAKE 1 TABLET(250 MG) BY MOUTH DAILY 30 tablet 02/23/20 23 Active SUMAtriptan (IMITREX) 100 MG tabletIndications :Other migraine without status migrainosus, not intractable Take 1 tablet (100 mg total) by mouth 2 (two) times daily as needed for Migraine. Take 1 tablet at onset of symptoms, may take 1 tablet 2 hours later. Max of 2 tablets in 24-hour period. 16 tablet 08/20/19 24 Active busPIRone (BUSPAR) 15 MG tablet Take 1 tablet (15 mg total) by mouth 3 (three) times daily. Active atogepant (QULIPTA) tabletIndications :Migraine without aura, not intractable, without status migrainosus Take 1 tablet (60 mg total) by mouth daily. 30 tablet 12/13/19 24 Active erenumab-aooe (AIMOVIG) 70 mg/mL injection (autoinjector)Ind ications:Chronic migraine w/o aura w/o status migrainosus, not intractable ADMINISTER 1 ML UNDER THE SKIN EVERY 30 DAYS 1 mL 6 08/25/19 25 Active Active Problems Problem Noted Date Diagnosed Date Chronic migraine without aur a without status migrainosus, not intractable 09/29/2022 Encounters Date Type Department Care Team Description 08/27/2024 11:00 AM AUTOMATION DRIVER Office Visit [facility] - [address], [address] [place] [phone] Abiodun Red MD Botox (botox 155 migraines/) 08/27/2024 Scan [facility] Scanned, [facility] 08/27/2024 Travel 08/18/2024 Telephone [facility] [address] [address] Abiodun Red MD Appointment Request 08/07/2024 Scan [facility] Scanned, [facility] 07/24/2024 Telephone [facility] [address] [address] Abiodun Red MD Orders 07/15/2024 Telephone [facility] - [address], [address] [place] [phone] Abiodun Red MD Prior Authorization (Aimovig) from Last 3 Months Immunizations Name Administration Dates Next Due Influenza Adult (Generic) 06/04/2020 Family History Medical History Relation Comments Depression Brother Anxiety Father Depression Father Diabetes Father Heart Disease Maternal Grandmother Hypertension Maternal Grandmother Osteoporosis Mother Thyroid Mother Thyroid Sister Relation Status Comments Brother Father Maternal Grandmother Mother Sister Social History Tobacco Use Types Packs/Day Years Used Date Smoking Tobacco: Never Smokeless Tobacco: Never Tobacco Cessation:Counseling Given: Yes Alcohol Use Standard Drinks/Week Comments Never 0 (1 standard drink = 0.6 oz pur e alcohol) AUDIT-C Answer Date Recorded Q1: How often do you have a drink containing alc ohol? Never 10/12/2020 Average Number of Drinks Not on file 021 Frequency of Binge Drinking Not on file 09/15 PHQ-2 Answer Date Recorded Patient Health Questionnaire-2 Score 0 08/27/2024 Comments Unknown Sex and Gender Information Value Date Recorded Sex Assigned at Not on file Legal Sex Female 9:56 AM AUTOMATION DRIVER Gender Identity Not on file Sexual Orientation Not on file Last Filed Vital Signs Vital Sign Reading Time Taken Comments Blood Pressure 123/75 08/27/2024 11:15 AM AUTOMATION DRIVER Pulse 90 08/27/2024 11:15 AM AUTOMATION DRIVER Temperature 36.2 C (97.2 F) 06/04/2024 9:49 AM AUTOMATION DRIVER Respiratory Rate 16 10/11/2022 1:02 PM CDT Oxygen Saturation 97% 08/27/2024 11:15 AM AUTOMATION DRIVER Inhaled Oxygen Concentration - - Weight 131.1 kg (289 lb) 08/27/2024 11:15 AM AUTOMATION DRIVER Height 177.8 cm (5' 10 ) 06/04/2024 9:49 AM AUTOMATION DRIVER Body Mass Index 41.47 06/04/2024 9:49 AM AUTOMATION DRIVER Plan of Treatment Upcoming Encounters Date Type Department Care Team (Late st Contact Info) Description 12/03/2024 10:00 AM CDT Office Visit [facility] - [address], [address] [place] [address] Abiodun Red MD [address] [place] [address] Health Maintenance Due Date Last Done Comments Cervical Cancer Screening Pa p Smear (Age 30 to 64) Every 3 Years 1980 Annual Physical 1983 Hepatitis C 1998 DTaP, Tdap and Td Vaccines ( 1 - Tdap) 1999 Hepatitis B Vaccines (1 of 3 - 19+ 3-dose series) 1999 Cervical Cancer Screening Pa p with HPV Testing (Age 30 to 64) Every 5 Years 2010 Cervical Cancer Screening wi HPV 2010 Mammogram Screening 2020 COVID-19 Vaccine (3 - 2023-2 5 season) 2024 10/21/2020, 09/28/2020 Influenza Adult (#1) 2024 06/04/2020 PHQ-2 (Physician [facility]) Completed 08/27/2024 HPV Vaccines Aged Out No longer eligi ble based on patient's age to complete this topic Meningococcal B Vaccine Aged Out No l onger eligible based on patient's age to complete this topic Meningococcal Vaccine Aged Out No bebeto emily eligible based on patient's age to complete this topic Pneumococcal Vaccine: Pediatrics (0 to 5 Years) and At-Risk Patients (6 to 64 Years) Aged Out No longer eligible b ased on patient's age to complete this topic RSV Immunizations Under 20 Months Aged Out No longer eligible b ased on patient's age to complete this topic Insurance [facility] Care Teams Spray Painter Helper Relationship Specialty Start Date End Date Robert García MD [address] [address] [facility] - General 08/17/23
--- OUTSIDE RECORDS SUMMARY | 2024-09-26 05:59 | XMS_ITS | Encounter Summary ---
Author Organization [facility] Address [address] [place] [address] Care Team Providers Care Supervisor Edging Name Role Phone Saul Ruelas MD Primary Care Provider [phone] Robert García MD Primary Care Provider + Encounter Details Date Type Department Care Team (Late st Contact Info) Description 10/12/2020 Prep for Procedure [facility] [place] [address] [phone] Sujey Yap, NIA [address] [place] [phone] Social History Tobacco Use Types Packs/Day Years [...] of Binge Drinking Not on file 09/15 Comments Unknown Sex and Gender Information Value Date Recorded Sex Assigned at Not on file Legal Sex Female 9:56 AM ACQUISITION MANAGER Gender Identity Not on file Sexual Orientation Not on file COVID-19 Exposure Response Date Recorded In the last month, have you been in contact with someone who was confirmed or suspected to have Coronavirus / COVID-19? No / Unsure 10/12/2020 11:29 AM CDT documented as of this encounter Plan of Treatment Upcoming Encounters Date Type Department Care Team (Late st Contact Info) Description 12/03/2024 10:00 AM CDT Office Visit [facility] Multispecialty Care - [facility] [address] [facility], [address] [place] [address] Abiodun Red MD 3 [facility] [place] [address] documented as of this encounter Visit Diagnoses Not on filedocumented in this encounter Care Teams Supervisor Edging Relationship Specialty Start Date End Date Saul Ruelas MD 3 [facility] [address] [place] [phone] PCP - General FAMILY PRACTICE 10/12/20 08/16/23 Robert García MD 3 [facility] [address] [place] [phone] PCP - General 08/17/23 documented as of this encounter
--- OUTSIDE RECORDS SUMMARY | 2024-09-26 05:59 | XMS_ITS | Patient Health Record ---
Author Organization [facility] Address [address] [place], [place] [id number] Care Team Providers Care Ceo & Board Director Name Role Phone KENYON HARRIS Unavailable [phone] Darci Woody Unavailable Unavailable Allergies No Known Allergies Reason For Referral Reason [facility]FERR[facility] ( S URGERY ) [id number] UNIT / [facility] / [facility]. K[facility] Diagnosis 1 Tailor's bunion of r ight foot (M21.621) Referred Organization [facility] Referred Provider KENYON HARRIS Referred Address [address],[place], [id number], Referred Provider Specialty Podiatry Referral Priority Routine Medications Medication SIG (Take, Route, Frequency, Duration) Notes Start Date End Date Status Medrol 4 MG as directed Orally 04/24/2024 Active Vital Signs Height-cm 177.80 cm 04/24/2024 Weight-kg 113.4 kg 04/24/2024 Height 70.00 in 04/24/2024 Weight 250 lbs 04/24/2024 BMI 35.87 kg/m2 04/24/2024 Encounters Encounter Location Date Provider Diagnosis [facility] [place] [address] [place], [place] [phone] 04/24/2024 KENYON HARRIS Tailor's bunion of right foot M21.621 ; Bunionette of left foot M21.622 and Pain in right foot M79.671 [facility] [place] [address] [place], [place] [id number] 05/22/2024 KENYON HARRIS Tailor's bunion of right foot M21.621 ; Bunionette of left foot M21.622 ; Pain in right foot M79.671 and Left foot pain M79.672 [facility] [place] [address] [place] [id number] 06/26/2024 KENYON HARRIS Tailor's bunion of right foot M21.621 ; Bunionette of left foot M21.622 ; Pain in right foot M79.671 and Left foot pain M79.672 [facility] [place] [address] [place] [id number] 07/24/2024 KENYON HARRIS Tailor's bunion of right foot M21.621 ; Bunionette of left foot M21.622 ; Pain in right foot M79.671 and Left foot pain M79.672 [facility] [place] [address] [place] [phone] 08/14/2024 KENYON HARRIS Tailor's bunion of right foot M21.621 and Pain in right foot M79.671 Assessments Encounter Date Diagnosis (ICD Code) Assessment Notes Treatment Notes Treatment Clinical Notes Section Notes 04/24/2024 Bunionette of left foot (ICD-10 - M21.622) 04/24/2024 Tailor's bunion of right foot (ICD-10 - M21.621) 05/22/2024 Bunionette of left foot (ICD-10 - M21.622) 05/22/2024 Tailor's bunion of right foot (ICD-10 - M21.621) Following skin prep, a total of 3 ccs of a 1-1-1 mix of 0.5% marcaine plain, Kenalog, and dexamethasone sodium phosphate was injected into the patients bilateral 5th MTH 06/26/2024 Tailor's bunion of right foot (ICD-10 - M21.621) Following skin prep, a total of 3 ccs of a 1-1-1 mix of 0.5% marcaine plain, Kenalog, and dexamethasone sodium phosphate was injected into the patients bilateral 5th MTH 07/24/2024 Tailor's bunion of right foot (ICD-10 - M21.621) Following skin prep, a total of 3 ccs of a 1-1-1 mix of 0.5% marcaine plain, Kenalog, and dexamethasone sodium phosphate was injected into the patients right 5th MTH 08/14/2024 Pain in right foot (ICD-10 - M79.671) 08/14/2024 Tailor's bunion of right foot (ICD-10 - M21.621) 04/24/2024 Pain in right foot (ICD-10 - M79.671) 07/24/2024 Bunionette of left foot (ICD-10 - M21.622) Surgical correction was discussed. The patient opted not to proceed at this time. 06/26/2024 Bunionette of left foot (ICD-10 - M21.622) 05/22/2024 Pain in right foot (ICD-10 - M79.671) 05/22/2024 Left foot pain (ICD-10 - M79.672) 06/26/2024 Pain in right foot (ICD-10 - M79.671) 07/24/2024 Pain in right foot (ICD-10 - M79.671) 07/24/2024 Left foot pain (ICD-10 - M79.672) 06/26/2024 Left foot pain (ICD-10 - M79.672) 08/14/2024 Other Patient with check with his PCP to see if she [...] 5th MTH right foot Plan Of Treatment Next Appt Details Provider Name:KENYON SPIVEY, 10/02/2024 07:30:00 AM, [address] [place] [address], [phone], Provider Name:KENYON SPIVEY, 10/09/2024 03:10:00 PM, [address], [place], [place], [phone], Insurance Providers Payer Name Payer Address Payer Phone Subscriber Number Group Number Insured Name Patient Relationship to Insured Coverage Start Date Coverage End Date [facility] ([facility]) ATTN CLAIMS [address] [place] [address] [id number] ANGELICA BLACK Self - patient is the insured [employer] [address] [place], [place] [id number] ANGELICA BLACK Self - patient is the insured 3
[2024-09-26 06:19] LABS: BEDSIDEPREGUCG Negative (Negative)
--- NOTE | 2024-09-26 06:21 | ED_ITS ---
HPI - General Adult General Chief complaint: Abdominal Pain <Joshua Rizzo MD - Last Filed: 09/26/24 06:32> Stated complaint: abd pain <Joshua Rizzo MD - Last Filed: 09/26/24 06:32> Time Seen by Provider: 09/26/24 06:21 <Joshua Rizzo MD - Last Filed: 09/26/24 06:32> History of Present Illness HPI narrative: This is a 44-year-old female with history of GERD and chronic pain on Suboxone presenting for epigastric pain. Patient says she has been having intermittent pain for the last month. Over last several days it has become severe. She describes as a burning pain wraps around the top of her abdomen. Pain is severe in intensity and constant. Typically her pain resolves with Rolaids is no longer improving. She has had nausea but no vomiting. She denies fevers chills chest pain or difficulty breathing. <Joshua Rizzo MD - Last Filed: 09/26/24 06:32> Related Data Home medications: Home Medications ?Medication ?Instructions ?Recorded ?Confirmed ?Last Taken ?Type aspirin 81 mg tablet,delayed 81 mg PO DAILY 11/21/22 09/22/24 Unknown History release (Adult Aspirin Regimen) atorvastatin 40 mg tablet (Lipitor) 40 mg PO DAILY 11/21/22 09/22/24 Unknown History buprenorphine 8 mg-naloxone 2 mg 1 tablet sublingual TID 11/21/22 09/22/24 Unknown History sublingual tablet buspirone 15 mg tablet 15 mg PO DAILY 11/21/22 09/22/24 Unknown History duloxetine 60 mg capsule,delayed 60 mg PO DAILY 11/21/22 09/22/24 Unknown History release eszopiclone 3 mg tablet (Lunesta) 3 mg PO QHS 11/21/22 09/22/24 Unknown History fexofenadine 180 mg tablet 180 mg PO DAILY 11/21/22 09/22/24 Unknown History (Robyn Allergy) levothyroxine 137 mcg tablet 137 mcg PO DAILY 11/21/22 09/22/24 Unknown History (Synthroid) mometasone 50 mcg/actuation nasal 2 spray intranasal DAILY PRN 11/21/22 09/22/24 Unknown History spray Shortness Of Breath Or Wheezing mv-mn-folic 200 mcg-vit K 15 1 cap PO BID 11/21/22 09/22/24 Unknown History mcg-lutein 5 mg-zeaxanthin 1 mg capsule (PreserVision AREDS 2 Plus Multivit) nebivolol 5 mg tablet (Bystolic) 5 mg PO DAILY 11/21/22 09/22/24 Unknown History omeprazole 20 mg capsule,delayed 20 mg PO DAILY 11/21/22 09/22/24 Unknown History release pilocarpine HCl 5 mg tablet 5 mg PO TID 11/21/22 09/22/24 Unknown History pregabalin 150 mg capsule (Lyrica) 150 mg PO BID 11/21/22 09/22/24 Unknown History sumatriptan succinate 100 mg tablet See Rx Instructions PO .COMPLEX 11/21/22 09/22/24 Unknown History topiramate 50 mg tablet (Topamax) 50 mg PO TID 11/21/22 09/22/24 Unknown History atogepant 60 mg tablet (Qulipta) 60 mg PO DAILY 06/13/24 09/22/24 Unknown History cyclobenzaprine 10 mg tablet 10 mg PO TID 06/13/24 09/22/24 Unknown History erenumab-aooe 70 mg/mL 70 mg subcut DIRECTED 06/13/24 09/22/24 Unknown History subcutaneous auto-injector (Aimovig Autoinjector) hydroxyzine pamoate 50 mg capsule 50 mg PO DIRECTED 06/13/24 09/22/24 Unknown History trazodone 100 mg tablet 100 mg PO DIRECTED PRN insomnia 06/13/24 09/22/24 Unknown History lidocaine 1.8 % topical patch 1 patch topical DAILY 06/26/24 09/22/24 Unknown History omega 8-xnf-pqt-fish oil 60 mg-90 1 cap PO DAILY 06/26/24 09/22/24 Unknown History mg-500 mg capsule (Fish Oil) <Joshua Rizzo MD - Last Filed: 09/26/24 06:32> Allergies/adverse reactions: Allergies Allergy/AdvReac Type Severity Reaction Status Date / Time No Known Allergies Allergy Verified 09/26/24 05:57 <Joshua Rizzo MD - Last Filed: 09/26/24 06:32> [facility] Past Medical History Medical History: Medical History Radial head fracture, closed Distal radius fracture, right Thompson's neuroma of right foot (~2016) Abdominal hernia (~2011) Previous gastric bypass complicating , antepartum (~2007) <Joshua Rizzo MD - Last Filed: 09/26/24 06:32> Surgical History Surgical History: Surgical History Hx of cholecystectomy (~2009) History of (~2007) <Joshua Rizzo MD - Last Filed: 09/26/24 06:32> Family History Family History: Family History Unknown Hypertension Depression Diabetes mellitus Cerebrovascular accident <Joshua Rizzo MD - Last Filed: 09/26/24 06:32> Social History Social History: Social History (Updated 06/26/24 @ 07:42 by Debby Samayoa [facility]) Smoking status: Former smoker Alcohol intake: never Substance use: never Substance use type: does not use Do You Feel Safe in your Home?: Yes Lack of Transportation: No Lack of Food: Never True Current Housing: I Have Housing Concerned About Future Housing: No Difficulty Paying Gas/Electric Bills: No Difficulty Paying for Meds: No Currently Unemployed: No Education: Associate Degree Difficulty w/ Childcare or Family Care: No Living arrangements: with family Occupation/Education: occupation 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 Head: atraumatic. EYES: EOMI, NOSE: Atraumatic NECK: Trachea midline RESPIRATORY: No increased rate of breathing CTAB CARDIOVASCULAR: RRR, no peripheral edema ABDOMINAL: Tenderness to palpation in the epigastric region without guarding rebound MUSCULOSKELETAl: No obvious deformities NEURO: Alert. Moving 4/4 extremities SKIN:: Warm, dry. Normal color PSYCHIATRIC: Normal affect <Joshua Rizzo MD - Last Filed: 09/26/24 06:32> Course Reevaluation(s) Reevaluation #1: Patient comfortably resting on the bed with no discomfort. Informed her about the lab work, CT findings. Advised to continue home medication <Lio Byrne MD - Last Filed: 09/26/24 08:12> Date: 09/26/24 <Lio Byrne MD - Last Filed: 09/26/24 08:12> Vital Signs Vital signs: Vital Signs Temperature 36.6 C 09/26/24 05:59 Pulse Rate 83 09/26/24 05:59 Respiratory Rate 18 09/26/24 05:59 Blood Pressure 122/70 09/26/24 05:59 Pulse Oximetry 100 09/26/24 05:59 Oxygen Delivery Room Air 09/26/24 05:59 Temperature 36.4 C L 09/26/24 07:49 Pulse Rate 77 09/26/24 07:49 Respiratory Rate 16 09/26/24 07:49 Blood Pressure 106/67 09/26/24 07:49 Pulse Oximetry 100 09/26/24 07:49 Oxygen Delivery Room Air 09/26/24 05:59 <Joshua Rizzo MD - Last Filed: 09/26/24 06:32> Vital Signs Temperature 36.6 C 09/26/24 05:59 Pulse Rate 83 09/26/24 05:59 Respiratory Rate 18 09/26/24 05:59 Blood Pressure 122/70 09/26/24 05:59 Pulse Oximetry 100 09/26/24 05:59 Oxygen Delivery Room Air 09/26/24 05:59 Temperature 36.4 C L 09/26/24 07:49 Pulse Rate 77 09/26/24 07:49 Respiratory Rate 16 09/26/24 07:49 Blood Pressure 106/67 09/26/24 07:49 Pulse Oximetry 100 09/26/24 07:49 Oxygen Delivery Room Air 09/26/24 05:59 <Lio Byrne MD - Last Filed: 09/26/24 08:12> Medical Decision Making MDM Narrative Medical decision making narrative: -Course: 44-year-old female presenting with epigastric pain. Pain was treated with GI cocktail an extra dose of buprenorphine. Laboratory studies CT and pelvis with been obtained. Patient signed out to the oncoming physician pending completion of workup. -DDX includes but is not limited to: Gastritis, peptic ulcer disease, gallbladder disease, GERD, pancreatitis -Co-morbidities complicating care: GERD, chronic pain <Joshua Rizzo MD - Last Filed: 09/26/24 06:32> Vital Signs Vital Signs: Vital Signs Temperature 36.6 C 09/26/24 05:59 Pulse Rate 83 09/26/24 05:59 Respiratory Rate 18 09/26/24 05:59 Blood Pressure 122/70 09/26/24 05:59 Pulse Oximetry 100 09/26/24 05:59 Oxygen Delivery Room Air 09/26/24 05:59 Temperature 36.4 C L 09/26/24 07:49 Pulse Rate 77 09/26/24 07:49 Respiratory Rate 16 09/26/24 07:49 Blood Pressure 106/67 09/26/24 07:49 Pulse Oximetry 100 09/26/24 07:49 Oxygen Delivery Room Air 09/26/24 05:59 <Joshua Rizzo MD - Last Filed: 09/26/24 06:32> Vital Signs Temperature 36.6 C 09/26/24 05:59 Pulse Rate 83 09/26/24 05:59 Respiratory Rate 18 09/26/24 05:59 Blood Pressure 122/70 09/26/24 05:59 Pulse Oximetry 100 09/26/24 05:59 Oxygen Delivery Room Air 09/26/24 05:59 Temperature 36.4 C L 09/26/24 07:49 Pulse Rate 77 09/26/24 07:49 Respiratory Rate 16 09/26/24 07:49 Blood Pressure 106/67 09/26/24 07:49 Pulse Oximetry 100 09/26/24 07:49 Oxygen Delivery Room Air 09/26/24 05:59 <Lio Byrne MD - Last Filed: 09/26/24 08:12> Lab Data Result diagrams: 09/26/24 06:26 09/26/24 06:26 <Joshua Rizzo MD - Last Filed: 09/26/24 06:32> Labs: Lab Results 09/26/24 09/26/24 Range/Units 06:17 06:26 WBC 5.5 (4.5-10.0) K/mm3 RBC 4.81 (4.2-5.4) M/mm3 Hgb 14.7 (12.0-15.0) g/dL Hct 44.6 (37.0-47.0) % MCV 92.7 (80-100) fl MCH 30.6 (26-34) pg MCHC 33.0 (32-36) g/dl RDW 12.0 (11.5-14.5) % Plt Count 260 (150-375) k/mm3 MPV 9.7 (7.4-10.4) fl Immature Gran % (Auto) 0.2 (0-0.5) % Neut % (Auto) 93.6 H (45.5-73.1) % Lymph % (Auto) 3.1 L (18.3-44.2) % Norman % (Auto) 2.7 (2.6-8.5) % Eos % (Auto) 0.2 (0-4.4) % Baso % (Auto) 0.2 (0.2-1.2) % Lymph # (Auto) 0.17 L (0.9-3.2) K/mm3 Norman # (Auto) 0.2 (0.1-0.6) K/mm3 Eos # (Auto) 0.0 (0-0.3) K/mm3 Baso # (Auto) 0.0 (0.0-0.1) K/mm3 Abs Immat Gran (auto) 0.01 (0.00-0.031) K/mm3 Absolute Neuts (auto) 5.1 (1.3-6.7) K/mm3 Absolute Nucleated RBC 0.000 (0.0-0.012) K/mm3 Nucleated RBC % 0.0 (0.0-0.2) % Sodium 135 L (137-145) mmol/L Potassium 3.7 (3.4-5.0) mmol/L Chloride 99 (98-107) mmol/L Carbon Dioxide 27 (22-30) mmol/L Anion Gap 9 (4-12) mmol/L BUN 20 H (7-17) mg/dL Creatinine 0.79 (0.7-1.0) mg/dL Estim Creat Clear Calc 111 ml/min Estimated GFR > 60 (59 - ) Glucose 136 H (65-110) mg/dL Calcium 8.7 (8.4-10.2) mg/dL Total Bilirubin 0.5 (0.2-1.3) mg/dL AST 1467 H (14-36) U/L ALT 677 H (6-35) U/L Alkaline Phosphatase 268 H (38-126) U/L Total Protein 7.0 (6.3-8.2) g/dL Albumin 4.2 (3.5-5.1) g/dL Lipase 252 (23-300) U/L Urine Color Yellow (Yellow) Urine Appearance Clear (Clear) Urine pH 7.5 (5.0-9.0) Ur Specific [place] 1.028 (1.001-1.035) Urine Protein 1+ H (Negative) mg/dL Urine Glucose (UA) Negative (Negative) mg/dL Urine Ketones Trace H (Negative) mg/dL Ur Blood (Man) Negative (Negative) Urine Nitrate Negative (Negative) Urine Bilirubin Negative (Negative) Urine Urobilinogen 2.0 H (<2.0) mg/dL Leukocyte Esterase Rfl Trace H (Negative) LOGAN/UL Urine RBC 0-2 (0-2) /hpf Urine WBC 0-5 (0-3) /hpf Ur Squamous Epith Cells None seen (Few) /hpf Urine Bacteria None seen /hpf Urine Casts 0-2 POC Urine HCG, Qual Negative (Negative) <Joshua Rizzo MD - Last Filed: 09/26/24 06:32> Lab Results 09/26/24 09/26/24 Range/Units 06:17 06:26 WBC 5.5 (4.5-10.0) K/mm3 RBC 4.81 (4.2-5.4) M/mm3 Hgb 14.7 (12.0-15.0) g/dL Hct 44.6 (37.0-47.0) % MCV 92.7 (80-100) fl MCH 30.6 (26-34) pg MCHC 33.0 (32-36) g/dl RDW 12.0 (11.5-14.5) % Plt Count 260 (150-375) k/mm3 MPV 9.7 (7.4-10.4) fl Immature Gran % (Auto) 0.2 (0-0.5) % Neut % (Auto) 93.6 H (45.5-73.1) % Lymph % (Auto) 3.1 L (18.3-44.2) % Norman % (Auto) 2.7 (2.6-8.5) % Eos % (Auto) 0.2 (0-4.4) % Baso % (Auto) 0.2 (0.2-1.2) % Lymph # (Auto) 0.17 L (0.9-3.2) K/mm3 Norman # (Auto) 0.2 (0.1-0.6) K/mm3 Eos # (Auto) 0.0 (0-0.3) K/mm3 Baso # (Auto) 0.0 (0.0-0.1) K/mm3 Abs Immat Gran (auto) 0.01 (0.00-0.031) K/mm3 Absolute Neuts (auto) 5.1 (1.3-6.7) K/mm3 Absolute Nucleated RBC 0.000 (0.0-0.012) K/mm3 Nucleated RBC % 0.0 (0.0-0.2) % Sodium 135 L (137-145) mmol/L Potassium 3.7 (3.4-5.0) mmol/L Chloride 99 (98-107) mmol/L Carbon Dioxide 27 (22-30) mmol/L Anion Gap 9 (4-12) mmol/L BUN 20 H (7-17) mg/dL Creatinine 0.79 (0.7-1.0) mg/dL Estim Creat Clear Calc 111 ml/min Estimated GFR > 60 (59 - ) Glucose 136 H (65-110) mg/dL Calcium 8.7 (8.4-10.2) mg/dL Total Bilirubin 0.5 (0.2-1.3) mg/dL AST 1467 H (14-36) U/L ALT 677 H (6-35) U/L Alkaline Phosphatase 268 H (38-126) U/L Total Protein 7.0 (6.3-8.2) g/dL Albumin 4.2 (3.5-5.1) g/dL Lipase 252 (23-300) U/L Urine Color Yellow (Yellow) Urine Appearance Clear (Clear) Urine pH 7.5 (5.0-9.0) Ur Specific [place] 1.028 (1.001-1.035) Urine Protein 1+ H (Negative) mg/dL Urine Glucose (UA) Negative (Negative) mg/dL Urine Ketones Trace H (Negative) mg/dL Ur Blood (Man) Negative (Negative) Urine Nitrate Negative (Negative) Urine Bilirubin Negative (Negative) Urine Urobilinogen 2.0 H (<2.0) mg/dL Leukocyte Esterase Rfl Trace H (Negative) LOGAN/UL Urine RBC 0-2 (0-2) /hpf Urine WBC 0-5 (0-3) /hpf Ur Squamous Epith Cells None seen (Few) /hpf Urine Bacteria None seen /hpf Urine Casts 0-2 POC Urine HCG, Qual Negative (Negative) <Lio Byrne MD - Last Filed: 09/26/24 08:12> Discharge Plan Discharge Clinical Impression: Abdominal pain Qualifiers: Abdominal location: epigastric Qualified Code(s): R10.13 - Epigastric pain <Joshua Rizzo MD - Last Filed: 09/26/24 06:32> Patient Disposition: Home, Self-Care <Joshua Rizzo MD - Last Filed: 09/26/24 06:32> Condition: Stable <Joshua Rizzo MD - Last Filed: 09/26/24 06:32> Instructions: Antibiotic Form, Abdominal Pain (ED) <Joshua Rizzo MD - Last Filed: 09/26/24 06:32> Additional Instructions: Using emergency department for abdominal pain. Please follow-up with your primary care physician for further management. Please continue taking your omeprazole. Use Maalox as needed. Return if you develop severe abdominal pain, intractable nausea vomiting or fevers. <Joshua Rizzo MD - Last Filed: 09/26/24 06:32> Patient Language: [place] Islander <Joshua Rizzo MD - Last Filed: 09/26/24 06:32> Prescriptions: New alum-mag hydroxide-simeth [Advanced Antacid-Antigas] 200-200-20 mg/5 mL suspension 10 ml PO QID PRN (Reason: indigestion) Qty: 3000 0RF Rx Instructions: administer between meals and at bedtime ondansetron 4 mg tablet,disintegrating 4 mg PO Q8H PRN (Reason: nausea and vomiting) Qty: 30 0RF No Action cyclobenzaprine 10 mg tablet 10 mg PO TID hydroxyzine pamoate 50 mg capsule 50 mg PO DIRECTED trazodone 100 mg tablet 100 mg PO DIRECTED PRN (Reason: insomnia) Aimovig Autoinjector 70 mg/mL auto-injector 70 mg SUBCUT DIRECTED Qulipta 60 mg tablet 60 mg PO DAILY levothyroxine [Synthroid] 137 mcg tablet 137 mcg PO DAILY omeprazole 20 mg capsule,delayed release(DR/EC) 20 mg PO DAILY mometasone 50 mcg/actuation spray,non-aerosol 2 spray intranasal DAILY PRN (Reason: Shortness Of Breath Or Wheezing) Rx Instructions: administer into each nostril topiramate [Topamax] 50 mg tablet 50 mg PO TID sumatriptan succinate 100 mg tablet See Rx Instructions PO .COMPLEX Rx Instructions: take 1 tab at onset of headache; if no relief, may repeat 1 tab after at least 2 hrs; max = 2 tabs/24 hrs PO nebivolol [Bystolic] 5 mg tablet 5 mg PO DAILY fexofenadine [Robyn Allergy] 180 mg tablet 180 mg PO DAILY atorvastatin [Lipitor] 40 mg tablet 40 mg PO DAILY pregabalin [Lyrica] 150 mg capsule 150 mg PO BID aspirin [Adult Aspirin Regimen] 81 mg tablet,delayed release (DR/EC) 81 mg PO DAILY eszopiclone [Lunesta] 3 mg tablet 3 mg PO QHS buprenorphine-naloxone 8-2 mg tablet, sublingual 1 tablet sublingual TID pilocarpine HCl 5 mg tablet 5 mg PO TID PreserVision AREDS 2 Plus MV 200 mcg-15 mcg- 5 mg-1 mg capsule 1 cap PO BID duloxetine 60 mg capsule,delayed release(DR/EC) 60 mg PO DAILY buspirone 15 mg tablet 15 mg PO DAILY omega 1-hvg-hnq-fish oil [Fish Oil] 60-90-500 mg capsule 1 cap PO DAILY lidocaine 1.8 % adhesive patch,medicated 1 patch topical DAILY Rx Instructions: leave on most painful area for up to 12 hrs meloxicam 15 mg tablet 15 mg PO DAILY Qty: 14 0RF <Joshua Rizzo MD - Last Filed: 09/26/24 06:32> Follow-up/Referrals: Elsa Sarabia DO [Physician] - PHYSICIAN,CYTOPATHOLOGY TECHNOLOGIST [Primary Care Provider] - <Joshua Rizzo MD - Last Filed: 09/26/24 06:32> Time of Disposition: 08:10 <Joshua Rizzo MD - Last Filed: 09/26/24 06:32> 08:10 <Lio Byrne MD - Last Filed: 09/26/24 08:12>
[2024-09-26 06:33] LABS: Basophils Percent Auto 0.2 % (0.2-1.2); Eosinophils Percent Auto 0.2 % (0-4.4); Hematocrit 44.6 % (37.0-47.0); Hemoglobin 14.7 g/dL (12.0-15.0); Immature Granulocyte Absolute 0.01 K/mm3 (0.00-0.031); Immature Granulocyte Percent A 0.2 % (0-0.5); Lymphocytes Absolute Auto 0.17 K/mm3 (0.9-3.2); Lymphocytes Percent Auto 3.1 % (18.3-44.2); Mean Corpuscular Hemoglobin 30.6 pg (26-34); Mean Corpuscular Volume 92.7 fl (80-100); Mean Platelet Volume 9.7 fl (7.4-10.4); Monocytes Absolute Auto 0.2 K/mm3 (0.1-0.6); Monocytes Percent Auto 2.7 % (2.6-8.5); Neutrophils Absolute Auto 5.1 K/mm3 (1.3-6.7); Neutrophils Percent Auto 93.6 % (45.5-73.1); Platelet Count Result 260 k/mm3 (150-375); Red Blood Count 4.81 M/mm3 (4.2-5.4); White Blood Count 5.5 K/mm3 (4.5-10.0)
[2024-09-26] MEDS: BUPRENORPHINE HCL (*CRX) 8 MG SUBLINGUAL TABLET SUBLINGUAL (06:33)
[2024-09-26] MEDS: BELLADONNA ALK/PHENOB ELIX 10 ML, MAG HYDROX/ALUMINUM HYD/SIMETH 30 ML, LIDOCAINE 2% VI... PO (06:36)
[2024-09-26] MEDS: FAMOTIDINE 20 MG/2 ML VIAL IV PUSH (06:37)
[2024-09-26 06:39] LABS: Add Urine Microscopic? YES; Appearance Urine Clear (Clear); Bacteria Urine None Seen /hpf; Bilirubin Urine Negative (Negative); Blood Urine Negative (Negative); Color Urine Yellow (Yellow); Glucose Urine UA Negative (Negative); Ketones Urine Trace mg/dL (Negative); Leukocyte Esterase Ur Trace LEU/UL (Negative); Nitrate Urine Negative (Negative); Non Pathogenic Casts 0-2; Protein Urine 1+ mg/dL (Negative); RBC Urine 0-2 /hpf (0-2); Specific Grav Ur 1.028 (1.001-1.035); Squamous Epithelial Cell Urine None Seen /hpf (Few); WBC Urine 0-5 /hpf (0-3); pH Urine 7.5 (5.0-9.0)
[2024-09-26] MEDS: ONDANSETRON INJ 4 MG/2 ML VIAL IV PUSH (06:43)
[2024-09-26 06:44] LABS: Alanine Aminotransferase 677 U/L (6-35); Albumin Level 4.2 g/dL (3.5-5.1); Alkaline Phosphatase 268 U/L (38-126); Anion Gap 9 mmol/L (4-12); Bilirubin,Total 0.5 mg/dL (0.2-1.3); Blood Urea Nitrogen 20 mg/dL (7-17); Calcium 8.7 mg/dL (8.4-10.2); Carbon Dioxide 27 mmol/L (22-30); Chloride 99 mmol/L (98-107); Estimated CRCL calculation 111 ml/min; Estimated Glomerular Filt Rate > 60; Glucose 136 mg/dL (65-110); Lipase 252 U/L (23-300); Potassium 3.7 mmol/L (3.4-5.0); Sodium 135 mmol/L (137-145)
--- OUTSIDE RECORDS SUMMARY | 2024-09-26 06:50 | XMS_ITS | Encounter Summary ---
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 Gender Identity Not on file Sexual Orientation [...] Description 12/03/2024 10:00 AM CDT Office Visit [facility] Multispecialty Care - [facility] [address] [facility], [address] [place] [address] Abiodun Red MD 3 [facility] [place] [address] documented as of this encounter Visit Diagnoses Not on filedocumented in this encounter Care Teams Telecommunications Professional Relationship Specialty Start Date End Date Saul Ruelas MD 3 [facility] [address] [place] [phone] PCP - General FAMILY PRACTICE 10/12/20 08/16/23 Robert García MD 3 [facility] [address] [place] [phone] PCP - General 08/17/23 documented as of this encounter
--- OUTSIDE RECORDS SUMMARY | 2024-09-26 06:50 | XMS_ITS | Clinical Summary ---
Author Organization [employer] Care Team Providers Care Heat Curer Name Role Phone Unavailable Primary Care Provider [...]
--- OUTSIDE RECORDS SUMMARY | 2024-09-26 06:50 | XMS_ITS | Encounter Summary ---
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 Gender Identity Not on file Sexual Orientation Not on file documented as of this encounter Plan of Treatment Upcoming Encounters Date Type Department Care Team (Late Contact Info) Description 12/03/2024 10:00 AM CDT Office Visit [facility] - [address], [address] [place] [phone] Abiodun Red MD [address] [place] [address] documented as of this encounter Visit Diagnoses Not on filedocumented in this encounter Additional Health Concerns Assessment Noted Time PHQ-9 Depression Total Score: 7 06/02/20 22 9:57 AM SUBWAY OPERATOR documented as of this encounter Care Teams Electronic Warfare Operator Relationship Specialty Start Date End Date Robert García MD 3 [facility] [place] [address] [place] [phone] PCP - General 08/17/23 documented as of this encounter
--- OUTSIDE RECORDS SUMMARY | 2024-09-26 06:50 | XMS_ITS | Continuity of Care Document ---
Author Organization [facility] Address [address] [place] [address] Phone Care Team Providers Care Human Factors Engineer Name Role Phone Miguel Harrison PT Unavailable [...] Diagnoses Date Provider Providers Copied on Encounter [facility], [place], [place], [id number], tel:[phone] [place] No Information Hunter Rivera. . [facility], [place], [place], [id number], tel:[phone] [place] No Information Hunter Contreras . [facility], [address], [place], [place], [id number], tel:[phone] [place] No Information Hunter Contreras . [facility], [address], [place], [place], [id number], tel:[phone] [place] No Information Hunter Contreras . [facility], [address], [place], [place], [id number], [place] tel:[phone] [place] No Information Hunter Contreras . [facility], [address] [place] [address], [id number], tel:[phone] [place] No Information Hunter Sanabria Family History Family Member Type Diagnosis Age At Onset No Information Payers Payer name Insurance type Covered democrat ID Authoriza tion(s) No Information Social History [...]
--- OUTSIDE RECORDS SUMMARY | 2024-09-26 06:50 | XMS_ITS | Encounter Summary ---
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 -RL NO SLOT SUPERVISOR * Telephone Encounter - Vicenta Early PA - 09/01/2024 12:17 PM CASINO SLOT SUPERVISOR Can we get records from patient's eye doctor? She goes to [facility] in [place], [place]. Thanks. NO SLOT SUPERVISOR documented in this encounter Plan of Treatment Not on file documented as of this encounter Visit Diagnoses Not on filedocumented in this encounter Care Teams Endband Sizer Relationship Specialty Start Date End Date Saul Ruelas MD PCP - General Family Medicine 08/25/20 Abiodun Red MD [address] [place] [address] Referring Physician Neurology 11/27/22 Issac Amador MD [address] [place] [address] Consulting Physician Rheumatology 07/23/24 documented as of this encounter
--- OUTSIDE RECORDS SUMMARY | 2024-09-26 06:50 | XMS_ITS | Patient Health Summary ---
Author Organization [facility] Address [address] [place] [address] Care Team Providers Care Mangle Press Catcher Name Role Phone Unavailable Primary Care Provider Unavailabl e Note from [facility],non-owned Affiliates and Associated Physician Practices is amultiple site organization consisting of ambulatory clinics and hospital sitesin [place], [place], [place] and [place]. This disclosure is being madepursuant to the Care Everywhere program and may not contain all information available regarding this patient. Last updated 18.[facility] Social History Tobacco Use Types Packs/Day Years [...] AM CDT) Case Report Dermatopathology Report Case: [id number] Authorizing Provider: Niles George MD Collected: 03/02/2022 12:00 AM Ordering Location: [facility] DermPath Lab Received: 03/02/2022 05:15 PM [...] characteristic determined by the Dermatopathology Laboratory at [facility], directed by Dr. Miguel Viramontes. These tests need not be, and therefore are not, approved by the [place] Food and Drug Administration. The tests are used for clinical purposes. Billing Codes Specimen Charges Stain Charges 12742 1 2 6:16 PM CDT DERMATOPATHOLOGY LABORATORY Embedded Images 2 6:16 PM CDT DERMATOPATHOLOGY LABORATORY Pathology/Cytolog y TISSUE SPECIMEN FROM SKIN / Unknown 03/02/2022 03/02/2022 5:15 PM CDT Niles George MD LAB - PATHOLOGY/CYTO LOGY ORDERABLES DERMATOPATHOLOGY LABORATORY [facility] - Department of Dermatology [address], [address] Floor [address] [phone]
--- OUTSIDE RECORDS SUMMARY | 2024-09-26 06:50 | XMS_ITS | Clinical Summary ---
Author Organization [facility] Address [address] [place] [address] Care Team Providers Care Licensing Court Magistrate Name Role Phone Unavailable Primary Care Provider Unavailabl e Source Comments [facility],non-owned Affiliates and Associated Physician Practices is amultiple site organization consisting of ambulatory clinics and hospital sitesin [place], [place], [place] and [place]. This disclosure is being madepursuant to the Care Everywhere program and may not contain all information available regarding this patient. Last updated 18.[facility] [email or web address] Social History Tobacco Use Types Packs/Day Years [...]
--- OUTSIDE RECORDS SUMMARY | 2024-09-26 06:50 | XMS_ITS | Clinical Summary ---
Author Organization [address] Address [address] [place] [address] Care Team Providers Care Landscape Horticulture Instructor Name Role Phone Saul Ruelas MD Primary Care Provider [phone] Abiodun Red MD Unavailable [phone] Issac Amador MD Unavailable [phone] Allergies No known active allergies Medications [...] seen Assessment & Plan (09/01/2024 12:03 PM RESEARCH INSTRUMENTATION TECHNICIAN): 44-year-old female with PMHx of HTN, HLD, [...] dosing due to hx GERD. Will contact ham stripper for records. Follow up in 2 weeks. Sooner if needed. Seen with Dr. Amador. OTNY (obstructive sleep apnea) 10/05/2020 Assessment & Plan (07/01/2024 10:25 AM RESEARCH INSTRUMENTATION TECHNICIAN): Patient continue with CPAP at 8 cm water pressure while sleeping. She was intolerable of higher pressures in the past. DME is [employer]. Assessment & Plan (06/28/2023 11:59 AM RESEARCH INSTRUMENTATION TECHNICIAN): Due to continued symptoms, the patient will continue CPAP at 8 cm water pressure. The patient has an elevated AHI, however she is intolerant of higher pressure. Denied need for supplies. DME [employer] Assessment & Plan (06/27/2022 12:02 PM RESEARCH INSTRUMENTATION TECHNICIAN): Patient continue to wear CPAP at 8 cm water pressure while sleeping. Her DME is [employer]. The patient did not tolerate an increase in her pressures in the past. Assessment & Plan (06/30/2021 11:05 AM RESEARCH INSTRUMENTATION TECHNICIAN): Patient continue to wear CPAP at 8 cm water pressure while sleeping. Her DME is [employer]. The patient is already registered her CPAP [...] patient denied need for supplies. DME company [employer]. The patient and I discussed the recall [...] open while sleeping. The DME company is [employer]. The patient is benefitting from CPAP therapy. Other insomnia 10/05/2020 Assessment & Plan (07/01/2024 10:25 AM RESEARCH INSTRUMENTATION TECHNICIAN): The patient continues with Lunesta 3 mg on most nights. Assessment & Plan (06/28/2023 11:58 AM RESEARCH INSTRUMENTATION TECHNICIAN): Due to continued symptoms, the patient will continue Lunesta 3 mg nightly. I have refilled the medication and will refill for 1 year Patient is aware that she should wear her CPAP machine if taking the medication. Assessment & Plan (06/27/2022 12:02 PM RESEARCH INSTRUMENTATION TECHNICIAN): The patient will continue with Lunesta 3 mg p.o. at bedtime to treat insomnia. Assessment & Plan (06/30/2021 11:04 AM RESEARCH INSTRUMENTATION TECHNICIAN): The patient will continue with Lunesta 3 [...] Department Care Team Description 09/16/2024 Orders Only [facility] [address] [place] [phone] Vicenta Early PA 09/08/2024 10:21 AM RESEARCH INSTRUMENTATION TECHNICIAN - 09/08/2024 11:59 PM RESEARCH INSTRUMENTATION TECHNICIAN Hospital Encounter [facility] [address] [place] [phone] Sicca complex; Polyarthralgia Discharge Disposition: Discharge to home or self care 09/08/2024 Results Follow-Up [address] [phone] Issac Amador MD 09/01/2024 10:30 AM RESEARCH INSTRUMENTATION TECHNICIAN Office Visit [address] [phone] Vicenta Early PA Sicca complex (Primary Dx); Polyarthralgia 09/01/[address] [phone] Vicenta Early PA 07/01/2024 10:00 AM RESEARCH INSTRUMENTATION TECHNICIAN Office Visit [facility] [address] [place] [phone] Tawanna Kee NP TONY (obstructive sleep [...] on file Legal Sex Female 9:00 AM RESEARCH INSTRUMENTATION TECHNICIAN Gender Identity Female 09/06/2024 3:20 PM RESEARCH INSTRUMENTATION TECHNICIAN Sexual Orientation Not on file Obstetrics History Last Filed Vital Signs Vital Sign Reading Time Taken Comments Blood Pressure 134/76 09/01/2024 10:16 AM RESEARCH INSTRUMENTATION TECHNICIAN Pulse 106 09/01/2024 10:16 AM RESEARCH INSTRUMENTATION TECHNICIAN Temperature 36.4 C (97.6 F) 07/01/2024 9:59 AM RESEARCH INSTRUMENTATION TECHNICIAN Respiratory Rate 18 07/01/2024 9:59 AM RESEARCH INSTRUMENTATION TECHNICIAN Oxygen Saturation 96% 09/01/2024 10:16 AM RESEARCH INSTRUMENTATION TECHNICIAN Inhaled Oxygen Concentration - - Weight 127 kg (280 lb) 09/01/2024 10:16 AM RESEARCH INSTRUMENTATION TECHNICIAN Height 177.8 cm (5' 10 ) 09/01/2024 10:16 AM RESEARCH INSTRUMENTATION TECHNICIAN Body Mass Index 40.18 09/01/2024 10:16 AM RESEARCH INSTRUMENTATION TECHNICIAN Plan of Treatment Health Maintenance Due Date [...] Comments SCAN - RADIOLOGY/IMAGING 09/16/2024 4:34 PM RESEARCH INSTRUMENTATION TECHNICIAN US HAND COMPLETE Schedule Routine, Read Routine (OP Routine) 09/08/2024 11:12 AM RESEARCH INSTRUMENTATION TECHNICIAN Sicca complex Polyarthralgia ERYTHROCYTE SEDIMENTATION RATE Routine 09/01/2024 11:37 AM RESEARCH INSTRUMENTATION TECHNICIAN Sicca complex Polyarthralgia CRP (ACUTE PHASE) Routine 09/01/2024 11: 37 AM RESEARCH INSTRUMENTATION TECHNICIAN Sicca complex Polyarthralgia COMPREHENSIVE METABOLIC PANEL Routine 09/01/2024 11:37 AM RESEARCH INSTRUMENTATION TECHNICIAN Sicca complex Polyarthralgia CBC WITH AUTO DIFFERENTIAL Routine 09/01/2024 11:37 AM RESEARCH INSTRUMENTATION TECHNICIAN Sicca complex Polyarthralgia MISCELLANEOUS LAB TEST Routine 09/01/2024 10:09 AM RESEARCH INSTRUMENTATION TECHNICIAN Sicca complex Polyarthralgia from Last 3 Months Results * SCAN - RADIOLOGY/IMAGING (09/16/2024 4:34 PM RESEARCH INSTRUMENTATION TECHNICIAN) Anatomical Region Laterality Modality Other Vicenta LANDA Final Result * US Hand Complete (09/08/2024 11:12 AM RESEARCH INSTRUMENTATION TECHNICIAN) Anatomical Region Laterality Modality Hand N/A Ultrasound Issac Amador MD [facility] [place] PROCEDURES Final Result * (ABNORMAL) CBC with auto differential (09/01/2024 11:37 AM RESEARCH INSTRUMENTATION TECHNICIAN) WBC 7.9 3.8 - 10.8 Thousand/u L [...] [facility] Blood 09/01/2024 11:3 7 AM RESEARCH INSTRUMENTATION TECHNICIAN 09/01/2024 11:37 AM RESEARCH INSTRUMENTATION TECHNICIAN us Issac Amador MD LAB BLOOD ORDERABLES Final Res ult [facility] [address] [address] [address] * Erythrocyte sedimentation rate (09/01/2024 11:37 AM RESEARCH INSTRUMENTATION TECHNICIAN) Erythrocyte sedimentation rate 9 < OR = 20 mm/h [facility] Blood 09/01/2024 11:3 7 AM RESEARCH INSTRUMENTATION TECHNICIAN 09/01/2024 11:37 AM RESEARCH INSTRUMENTATION TECHNICIAN Issac Amador MD LAB BLOOD ORDERABLES Final Res ult Performing Organization Address City/[facility]/ZIP Co de Phone Number [facility] [address] [place] [address] * CRP (acute phase) (09/01/2024 11:37 AM RESEARCH INSTRUMENTATION TECHNICIAN) Pathologist [facility] C-RP <3.0 <8.0 mg/L [facility] Blood 09/01/2024 11:3 7 AM RESEARCH INSTRUMENTATION TECHNICIAN 09/01/2024 11:37 AM RESEARCH INSTRUMENTATION TECHNICIAN Issac Amador MD LAB BLOOD ORDERABLES Final Res ult Performing Organization Address [facility]/[place] Co de Phone Number [facility] [address] [place] [address] * Comprehensive metabolic panel (09/01/2024 11:37 AM RESEARCH INSTRUMENTATION TECHNICIAN) Pathologist [facility] Glucose 71 65 - 99 mg/dL [facility] [...] [facility] Blood 09/01/2024 11:3 7 AM RESEARCH INSTRUMENTATION TECHNICIAN 09/01/2024 11:37 AM RESEARCH INSTRUMENTATION TECHNICIAN Issac Amador MD LAB BLOOD ORDERABLES Final Res ult [facility] [address] [place] [address] * [facility] CTD - Miscellaneous Test (09/01/2024 10:09 AM RESEARCH INSTRUMENTATION TECHNICIAN) Miscellaneous Issac Amador MD LAB BLOOD ORDERABLES Final Res ult EXTERNAL LAB from Last [address] [facility] Nature[employer] CHOICE OR [facility] My True Fit OR [facility] [address] [place] [address] Care Teams Landscape Horticulture Instructor Relationship Specialty Start Date End Date Saul Ruelas MD PCP - General Family Medicine 08/25/20 Abiodun Red MD [address] [place] [address] Referring Physician Neurology 11/27/22 Issac Amador MD [address] [place] [address] Consulting Physician Rheumatology 07/23/24
--- OUTSIDE RECORDS SUMMARY | 2024-09-26 06:50 | XMS_ITS | Clinical Summary ---
Author Organization [facility] Address [address] [place] [address] Care Team Providers Care Adult School Teacher Name Role Phone Robert García MD Primary [...] Department Care Team Description 08/27/2024 11:00 AM WINCH TRUCK OPERATOR Office Visit [facility] - [address], [address] [place] [phone] Abiodun Red MD Botox (botox 155 migraines/) 08/27/2024 Scan [facility] Scanned, [facility] 08/27/2024 Travel 08/18/2024 Telephone [facility] [address] [phone] Abiodun Red MD Appointment Request 08/07/2024 Scan [facility] Scanned, [facility] 07/24/2024 Telephone [facility] [address] [phone] Abiodun Red MD Orders 07/15/2024 Telephone [facility] - [address], [address] [place] [phone] Abiodun Red MD Prior Authorization ([employer]) from [...] on file Legal Sex Female 9:56 AM WINCH TRUCK OPERATOR Gender Identity Not on file Sexual Orientation Not on file Last Filed Vital Signs Vital Sign Reading Time Taken Comments Blood Pressure 123/75 08/27/2024 11:15 AM WINCH TRUCK OPERATOR Pulse 90 08/27/2024 11:15 AM WINCH TRUCK OPERATOR Temperature 36.2 C (97.2 F) 06/04/2024 9:49 AM WINCH TRUCK OPERATOR Respiratory Rate 16 10/11/2022 1:02 PM CDT Oxygen Saturation 97% 08/27/2024 11:15 AM WINCH TRUCK OPERATOR Inhaled Oxygen Concentration - - Weight 131.1 kg (289 lb) 08/27/2024 11:15 AM WINCH TRUCK OPERATOR Height 177.8 cm (5' 10 ) 06/04/2024 9:49 AM WINCH TRUCK OPERATOR Body Mass Index 41.47 06/04/2024 9:49 AM WINCH TRUCK OPERATOR Plan of Treatment Upcoming Encounters Date Type Department Care Team (Late st Contact Info) Description 12/03/2024 10:00 AM CDT Office Visit [facility] - [address], [address] [place] [address] Abiodun Red MD [address] [place] [id number] Health Maintenance Due Date Last Done Comments [...] Influenza Adult (#1) 2024 06/04/2020 PHQ-2 (Physician [place]) Completed 08/27/2024 HPV Vaccines Aged Out No [...] patient's age to complete this topic Insurance [facility] Care Teams Adult School Teacher Relationship Specialty Start Date End Date Robert García MD [address] [phone] [facility] - General 08/17/23
--- OUTSIDE RECORDS SUMMARY | 2024-09-26 06:50 | XMS_ITS | Encounter Summary ---
Author Organization [facility] Address [address] [place] [address] Phone Care Team Providers Care Stores Despatch Hand Name Role Phone Saul Ruelas MD Primary Care Provider [phone] Abiodun Red MD Unavailable [phone] Issac Amador MD Unavailable [phone] Encounter Details Date Type Department Care Team (Late st Contact Info) Description 09/08/2024 Results Follow-Up [facility] [address] [place] [phone] Issac Amador MD [address] [place] [address] Social History Tobacco Use Types Packs/Day [...] on file Legal Sex Female 9:00 AM DINKEY DISPATCHER Gender Identity Female 09/06/2024 3:20 PM DINKEY DISPATCHER Sexual Orientation Not on file documented as of this encounter Plan of Treatment Not on file documented as of this encounter Visit Diagnoses Not on filedocumented in this encounter Care Teams Stores Despatch Hand Relationship Specialty Start Date End Date Saul Ruelas MD PCP - General Family Medicine 08/25/20 Abiodun Red MD [address] [place] [address] Referring Physician Neurology 11/27/22 Issac Amador MD [address] [place] [address] Consulting Physician Rheumatology 07/23/24 documented as of this encounter
--- OUTSIDE RECORDS SUMMARY | 2024-09-26 06:50 | XMS_ITS | Referral Summary ---
Author Organization [address] Address [address] [address] Care Team Providers Care Gum Machine Filler Name Role Phone Saul Ruelas MD Primary Care Provider [phone] Abiodun Red MD Unavailable [phone] Issac Amador MD Unavailable [phone] Encounters Date Type Department Care Team Description 09/16/2024 Orders Only [facility] [address] [place] [phone] Vicenta Early PA 09/08/2024 Results Follow-Up [facility] [address] [place] [phone] Issac Amador MD 09/08/2024 10:21 AM ACCOUNTING SOFTWARE SPECIALIST - 09/08/2024 11:59 PM ACCOUNTING SOFTWARE SPECIALIST Hospital Encounter [address] [address] Sicca complex; Polyarthralgia Discharge Disposition: Discharge to home or self care 09/01/[address] [address] Vicenta Early PA 09/01/2024 10:30 AM ACCOUNTING SOFTWARE SPECIALIST Office Visit [facility] [address] [place] [phone] Vicenta Early PA Sicca complex (Primary Dx); Polyarthralgia 07/01/2024 10:00 AM ACCOUNTING SOFTWARE SPECIALIST Office Visit [facility] [address] [facility] [address] [place] [phone] Tawanna Kee NP TONY (obstructive sleep [...] seen Assessment & Plan (09/01/2024 12:03 PM ACCOUNTING SOFTWARE SPECIALIST): 44-year-old female with PMHx of HTN, HLD, [...] dosing due to hx GERD. Will contact visor installer for records. Follow up in 2 weeks. Sooner if needed. Seen with Dr. Amador. TONY (obstructive sleep apnea) 10/05/2020 Assessment & Plan (07/01/2024 10:25 AM ACCOUNTING SOFTWARE SPECIALIST): Patient continue with CPAP at 8 cm water pressure while sleeping. She was intolerable of higher pressures in the past. DME is [employer]. Assessment & Plan (06/28/2023 11:59 AM ACCOUNTING SOFTWARE SPECIALIST): Due to continued symptoms, the patient will continue CPAP at 8 cm water pressure. The patient has an elevated AHI, however she is intolerant of higher pressure. Denied need for supplies. DME [employer] Assessment & Plan (06/27/2022 12:02 PM ACCOUNTING SOFTWARE SPECIALIST): Patient continue to wear CPAP at 8 cm water pressure while sleeping. Her DME is [employer]. The patient did not tolerate an increase in her pressures in the past. Assessment & Plan (06/30/2021 11:05 AM ACCOUNTING SOFTWARE SPECIALIST): Patient continue to wear CPAP at 8 [...] open while sleeping. The DME company is [employer]. The patient is benefitting from CPAP therapy. Other insomnia 10/05/2020 Assessment & Plan (07/01/2024 10:25 AM ACCOUNTING SOFTWARE SPECIALIST): The patient continues with Lunesta 3 mg on most nights. Assessment & Plan (06/28/2023 11:58 AM ACCOUNTING SOFTWARE SPECIALIST): Due to continued symptoms, the patient will continue Lunesta 3 mg nightly. I have refilled the medication and will refill for 1 year Patient is aware that she should wear her CPAP machine if taking the medication. Assessment & Plan (06/27/2022 12:02 PM ACCOUNTING SOFTWARE SPECIALIST): The patient will continue with Lunesta 3 mg p.o. at bedtime to treat insomnia. Assessment & Plan (06/30/2021 11:04 AM ACCOUNTING SOFTWARE SPECIALIST): The patient will continue with Lunesta 3 [...] on file Legal Sex Female 9:00 AM ACCOUNTING SOFTWARE SPECIALIST Gender Identity Female 09/06/2024 3:20 PM ACCOUNTING SOFTWARE SPECIALIST Sexual Orientation Not on file Last Filed Vital Signs Vital Sign Reading Time Taken Comments Blood Pressure 134/76 09/01/2024 10:16 AM ACCOUNTING SOFTWARE SPECIALIST Pulse 106 09/01/2024 10:16 AM ACCOUNTING SOFTWARE SPECIALIST Temperature 36.4 C (97.6 F) 07/01/2024 9:59 AM ACCOUNTING SOFTWARE SPECIALIST Respiratory Rate 18 07/01/2024 9:59 AM ACCOUNTING SOFTWARE SPECIALIST Oxygen Saturation 96% 09/01/2024 10:16 AM ACCOUNTING SOFTWARE SPECIALIST Inhaled Oxygen Concentration - - Weight 127 kg (280 lb) 09/01/2024 10:16 AM ACCOUNTING SOFTWARE SPECIALIST Height 177.8 cm (5' 10 ) 09/01/2024 10:16 AM ACCOUNTING SOFTWARE SPECIALIST Body Mass Index 40.18 09/01/2024 10:16 AM ACCOUNTING SOFTWARE SPECIALIST Plan of Treatment Not on file Procedures Procedure Name Priority Date/Time Associated Diagnosis Comments SCAN - RADIOLOGY/IMAGING 09/16/2024 4:34 PM ACCOUNTING SOFTWARE SPECIALIST US HAND COMPLETE Schedule Routine, Read Routine (OP Routine) 09/08/2024 11:12 AM ACCOUNTING SOFTWARE SPECIALIST Sicca complex Polyarthralgia ERYTHROCYTE SEDIMENTATION RATE Routine 09/01/2024 11:37 AM ACCOUNTING SOFTWARE SPECIALIST Sicca complex Polyarthralgia CRP (ACUTE PHASE) Routine 09/01/2024 11: 37 AM ACCOUNTING SOFTWARE SPECIALIST Sicca complex Polyarthralgia COMPREHENSIVE METABOLIC PANEL Routine 09/01/2024 11:37 AM ACCOUNTING SOFTWARE SPECIALIST Sicca complex Polyarthralgia CBC WITH AUTO DIFFERENTIAL Routine 09/01/2024 11:37 AM ACCOUNTING SOFTWARE SPECIALIST Sicca complex Polyarthralgia MISCELLANEOUS LAB TEST Routine 09/01/2024 10:09 AM ACCOUNTING SOFTWARE SPECIALIST Sicca complex Polyarthralgia from Last 3 Months Results * SCAN - RADIOLOGY/IMAGING (09/16/2024 4:34 PM ACCOUNTING SOFTWARE SPECIALIST) Anatomical Region Laterality Modality Other Vicenta LANDA Final Result * US Hand Complete (09/08/2024 11:12 AM ACCOUNTING SOFTWARE SPECIALIST) Anatomical Region Laterality Modality Hand N/A Ultrasound Issac Amador MD IM US PROCEDURES Final Result * (ABNORMAL) CBC with auto differential (09/01/2024 11:37 AM ACCOUNTING SOFTWARE SPECIALIST) WBC 7.9 3.8 - 10.8 Thousand/u L [...] [facility] Blood 09/01/2024 11:3 7 AM ACCOUNTING SOFTWARE SPECIALIST 09/01/2024 11:37 AM ACCOUNTING SOFTWARE SPECIALIST Issac Amador MD LAB BLOOD ORDERABLES Final Res ult Performing Organization Address [facility] Co de Phone Number [facility] [address] [place] [address] * Erythrocyte sedimentation rate (09/01/2024 11:37 AM ACCOUNTING SOFTWARE SPECIALIST) Erythrocyte sedimentation rate 9 < OR = 20 mm/h [facility] Blood 09/01/2024 11:3 7 AM ACCOUNTING SOFTWARE SPECIALIST 09/01/2024 11:37 AM ACCOUNTING SOFTWARE SPECIALIST Issac Amador MD LAB BLOOD ORDERABLES Final Res ult Performing Organization Address [facility] de Phone Number [facility] [address] [place] [address] * CRP (acute phase) (09/01/2024 11:37 AM ACCOUNTING SOFTWARE SPECIALIST) C-RP <3.0 <8.0 mg/L [facility] Blood 09/01/2024 11:3 7 AM ACCOUNTING SOFTWARE SPECIALIST 09/01/2024 11:37 AM ACCOUNTING SOFTWARE SPECIALIST Issac Amador MD LAB BLOOD ORDERABLES Final Res ult Performing Organization Address [facility] de Phone Number [facility] [address] [place] [address] * Comprehensive metabolic panel (09/01/2024 11:37 AM ACCOUNTING SOFTWARE SPECIALIST) Glucose 71 65 - 99 mg/dL [facility] [...] [facility] Blood 09/01/2024 11:3 7 AM ACCOUNTING SOFTWARE SPECIALIST 09/01/2024 11:37 AM ACCOUNTING SOFTWARE SPECIALIST us Issac Amador MD LAB BLOOD ORDERABLES Final Res ult [facility] [address] [place] [address] * AVISE CTD - Miscellaneous Test (09/01/2024 10:09 AM ACCOUNTING SOFTWARE SPECIALIST) Miscellaneous us Issac Amador MD LAB BLOOD ORDERABLES Final Res ult EXTERNAL LAB from Last 3 Months Insurance [facility] [employer] [place] [facility] [address] [place] [phone] BLUE ACCESS CHOICE [place] [facility] [address] [place] [address] Care Teams Gum Machine Filler Relationship Specialty Start Date End Date Saul Ruelas MD PCP - General Family Medicine 08/25/20 Abiodun Red MD [address] [place] [address] Referring Physician Neurology 11/27/22 Issac Amador MD [address] [place] [address] Consulting Physician Rheumatology 07/23/24
--- OUTSIDE RECORDS SUMMARY | 2024-09-26 06:50 | XMS_ITS | Encounter Summary ---
Author Organization [facility] Address [address] [facility] [place] [address] Care Team Providers Care Soap Tender Name Role Phone Unavailable Primary Care Provider Unavailabl e Encounter Details Date Type Department Care Team (Late st Contact Info) Description 03/02/2022 Lab Requisition [facility] [address] [facility], [place] [address] Niles George MD [address] [place] [address] Social History Tobacco Use Types [...] AM CDT) Case Report Dermatopathology Report Case: [id number] Authorizing Provider: Niles George MD Collected: 03/02/2022 12:00 AM Ordering Location: [facility] Received: 03/02/2022 05:15 PM Pathologist: [...] characteristic determined by the Dermatopathology Laboratory at [facility], directed by Dr. Miguel Viramontes. These tests need not be, and therefore are not, approved by the [place] Food and Drug Administration. The tests are used for clinical purposes. Billing Codes Specimen Charges Stain Charges 26461 1 2 6:16 PM CDT DERMATOPATHOLOGY LABORATORY Embedded Images 2 6:16 PM CDT DERMATOPATHOLOGY LABORATORY Pathology/Cytolog y TISSUE SPECIMEN FROM SKIN / Unknown 03/02/2022 03/02/2022 5:15 PM CDT Niles George MD LAB - PATHOLOGY/CYTO LOGY ORDERABLES DERMATOPATHOLOGY LABORATORY [facility] - Department of Dermatology [address], [address] [phone] documented in this encounter Visit Diagnoses Not on filedocumented in this encounter
--- OUTSIDE RECORDS SUMMARY | 2024-09-26 06:50 | XMS_ITS | Referral Summary ---
Author Organization [facility] Address [address] [place] [address] Care Team Providers Care Formula Maker Name Role Phone Unavailable Primary Care Provider Unavailabl e Source Comments [facility],non-owned Affiliates and Associated Physician Practices is amultiple site organization consisting of ambulatory clinics and hospital sitesin [place], [place], [place] and [place]. This disclosure is being madepursuant to the Care Everywhere program and may not contain all information available regarding this patient. Last updated 18.[facility] Social History Tobacco Use Types Packs/Day [...]
[2024-09-26 06:56] LABS: Aspartate Amino Transferase 1467 U/L (14-36)
[2024-09-26 07:49] VITALS: BP 106/67; PULSE 77; RESP 16; TEMP 36.4; O2SAT 100
== END 2024-09-26 08:26 | disposition home or self-care (01) ==
PROVIDERS: Emergency Medicine; Emergency Provider Family Medicine
DX: R10.13 Epigastric pain (principal); Z87.891 Personal history of nicotine dependence; Z79.82 Long term (current) use of aspirin
CPT/HCPCS: 36415; 74177; 80053; 81001; 81025; 83690; 85025; 96374; 96375; 99284; A9270; J0571; J2405; Q9967

== ENCOUNTER 2024-09-30 08:59 | Outpatient (CLI) | payer BC, OTHER, SELFPAY ==
--- NOTE | 2024-09-30 08:30 | ECG_ITS ---
Test Date: 2024-09-30 09:28:42 Measurements Intervals Harrell Rate: 84 P: 39 ME: 181 QRS: 35 QRSD: 107 T: 7 QT: 390 QTc: 461 Interpretive Statements SINUS RHYTHM NONSPECIFIC T-WAVE ABNORMALITY No previous ECG available for comparison Electronically Signed On 09-30-2024 16:57:13 CDT by Brooklynn Negro M.D.
--- OUTSIDE RECORDS SUMMARY | 2024-09-30 09:47 | XMS_ITS | Clinical Summary ---
Author Organization [facility] Address [address] [place] [address] Care Team Providers Care Auto Rental Clerk Name Role Phone Unavailable Primary Care Provider Unavailabl e Source Comments [facility],non-owned Affiliates and Associated Physician Practices is amultiple site organization consisting of ambulatory clinics and hospital sitesin [place], [place], [place] and [place]. This disclosure is being madepursuant to the Care Everywhere program and may not contain all information available regarding this patient. Last updated 18.[facility] [employer] Social History Tobacco Use Types Packs/Day Years [...]
--- OUTSIDE RECORDS SUMMARY | 2024-09-30 09:47 | XMS_ITS ---
Author Organization [facility] Address [address] [place], [place] [id number] Care Team Providers Care Real Estate Clerk Name Role Phone KENYON FORREST Unavailable [phone] Darci Woody Unavailable Unavailable Allergies No Known Allergies REASON FOR VISIT *Injection follow-up Medications Medication SIG (Take, Route, Frequency, Duration) Notes Start Date End Date Status Medrol 4 MG as directed Orally 04/24/2024 Active Encounters Encounter Location Date Provider Diagnosis [facility] [place] [address] [place], [place] [id number] 07/24/2024 KENYON FORREST Tailor's bunion of right [...] 10/02/2024 07:30:00 AM, [address], [place], [address], Provider Name:KENYON SPIVEY, 10/09/2024 03:10:00 PM, [address], [facility] [address], [place], [place], [phone], Progress Notes * ANGELICA BLACK LDOB: 0 (44 yo F)Acc No.[id number]:07/24/2024 Patient: Michael ANGELICA VIDALES Estefany Provider: Kan Forrest DPM :1980 A ge:44 Y S ex:Female Date:07/24/2024 Address:[address] [place] [address] , [id number] Subjective: * Chief Complaints: * * Injection [...] RT * Billing Information: * Visit Code: 97924 Office Visit, Est Pt., Level 3. Modifiers: 25 * Procedure Codes: DRAIN/INJECT, JOINT/BURSA. Modifiers: RT * TER TENDER PAPER Sign off status: Completed true * Provider: Kan Forrest DPM Date: 0 07/24/2024 Generated for Dalia grace/Valeri/Ashwiniitting on: 0 09/30/2024 09:47 AM CDT History and Physical Notes * [...]
--- OUTSIDE RECORDS SUMMARY | 2024-09-30 09:47 | XMS_ITS | Encounter Summary ---
Author Organization [facility] Address [address] [facility] [place] [address] Care Team Providers Care Safety Trainer Name Role Phone Unavailable Primary Care Provider Unavailabl e Encounter Details Date Type Department Care Team (Late st Contact Info) Description 03/02/2022 Lab Requisition [facility] [address] [facility], [place] [address] Niles George MD [address] [place] [address] Social History Tobacco Use Types [...] AM CDT) Case Report Dermatopathology Report Case: [id number] Authorizing Provider: Niles George MD Collected: 03/02/2022 12:00 AM Ordering Location: [facility] Received: 03/02/2022 05:15 PM Pathologist: [...] characteristic determined by the Dermatopathology Laboratory at [facility], directed by Dr. Miguel Viramontes. These tests need not be, and therefore are not, approved by the [place] Food and Drug Administration. The tests are used for clinical purposes. Billing Codes Specimen Charges Stain Charges 53682 1 2 6:16 PM CDT DERMATOPATHOLOGY LABORATORY Embedded Images 2 6:16 PM CDT DERMATOPATHOLOGY LABORATORY Pathology/Cytolog y TISSUE SPECIMEN FROM SKIN / Unknown 03/02/2022 03/02/2022 5:15 PM CDT Niles George MD LAB - PATHOLOGY/CYTO LOGY ORDERABLES DERMATOPATHOLOGY LABORATORY [facility] - Department of Dermatology [address], [address] [phone] documented in this encounter Visit Diagnoses Not on filedocumented in this encounter
--- OUTSIDE RECORDS SUMMARY | 2024-09-30 09:47 | XMS_ITS ---
Author Organization [facility] Address [address] [place], [place] [phone] Care Team Providers Care Post Framer Name Role Phone KENYON FORREST Unavailable [phone] Darci Woody Unavailable Unavailable Allergies No Known Allergies REASON FOR VISIT *Surgery consult bunion Medications Medication SIG (Take, Route, Frequency, Duration) Notes Start Date End Date Status Medrol 4 MG as directed Orally 04/24/2024 Active Encounters Encounter Location Date Provider Diagnosis [facility] [place] [address] [place], [place] [id number] 08/14/2024 KENYON FORREST Tailor's bunion of right [...] 10/02/2024 07:30:00 AM, [address], [place], [address], Provider Name:KENYON Moya JULIO SPIVEY, 10/09/2024 03:10:00 PM, [address], [facility] [address], [place], [place], [phone], Progress Notes * ANGELICA BLACK LDOB: 0 (44 yo F)Acc No.[id number]:08/14/2024 Patient: Michael ANGELICA VIDALES Provider: Kan Forrest DPM :1980 A ge:44 Y S ex:Female Date:08/14/2024 Address:[address] [place] [address] , [facility] Subjective: * Chief Complaints: * * Surgery consult bunion * HPI: H PI[facility] [...] RT * Billing Information: * Visit Code: 66207 Office Visit, Est Pt., Level 4. * Procedure Codes: 16386 X-RAY EXAM OF FOOT. Modifiers: RT * RUCTION DEAN Sign off status: Completed true * Provider: Kan Forrest DPM Date: 0 08/14/2024 Generated for Dalia grace/Valeri/Ashwiniitting on: 0 09/30/2024 [...]
--- OUTSIDE RECORDS SUMMARY | 2024-09-30 09:47 | XMS_ITS | Encounter Summary ---
Author Organization [facility] Address [address] [place] [address] Phone Care Team Providers Care Kapok And Cotton Machine Operator Name Role Phone Saul Ruelas MD Primary Care Provider [phone] Abiodun Red MD Unavailable [phone] Issac Amador MD Unavailable [phone] Encounter Details Date Type Department Care Team (Late st Contact Info) Description 09/08/2024 Results Follow-Up [facility] [address] [place] [phone] Issac Amador MD [address] [place] [address] Social History Tobacco Use Types Packs/Day [...] on file Legal Sex Female 9:00 AM DIVIDING MACHINE OPERATOR HELPER Gender Identity Female 09/06/2024 3:20 PM DIVIDING MACHINE OPERATOR HELPER Sexual Orientation Not on file documented as of this encounter Plan of Treatment Not on file documented as of this encounter Visit Diagnoses Not on filedocumented in this encounter Care Teams Kapok And Cotton Machine Operator Relationship Specialty Start Date End Date Saul Ruelas MD PCP - General Family Medicine 08/25/20 Abiodun Red MD [address] [place] [address] Referring Physician Neurology 11/27/22 Issac Amador MD [address] [place] [address] Consulting Physician Rheumatology 07/23/24 documented as of this encounter
--- OUTSIDE RECORDS SUMMARY | 2024-09-30 09:47 | XMS_ITS | Encounter Summary ---
Author Organization [facility] Address [address] [place] [address] Phone Care Team Providers Care Waste Hand Name Role Phone Saul Ruelas MD Primary Care Provider [phone] Abiodun Red MD Unavailable [phone] Issac Amador MD Unavailable [phone] Encounter Details Date Type Department Care Team (Late st Contact Info) Description 09/01/2024 Telephone [facility] [address] [place] [phone] Vicenta Early PA [facility] [address] Social History Tobacco Use Types [...] on file Legal Sex Female 9:00 AM APPEALS WRITER Gender Identity Female 09/06/2024 3:20 PM APPEALS WRITER Sexual Orientation Not on file documented as of this encounter Miscellaneous Notes * Telephone Encounter - Chalino Palacios - 09/01/2024 2:01 PM CST Spoke with liset at [facility] ([phone]) she stated she will fax over the pt records. -RL ALS WRITER * Telephone Encounter - Vicenta Early PA - 09/01/2024 12:17 PM APPEALS WRITER Can we get records from patient's eye doctor? She goes to [facility] in [place], [place]. Thanks. ALS WRITER documented in this encounter Plan of Treatment Not on file documented as of this encounter Visit Diagnoses Not on filedocumented in this encounter Care Teams Waste Hand Relationship Specialty Start Date End Date Saul Ruelas MD PCP - General Family Medicine 08/25/20 Abiodun Red MD [address] [place] [address] Referring Physician Neurology 11/27/22 Issac Amador MD [address] [place] [address] Consulting Physician Rheumatology 07/23/24 documented as of this encounter
--- OUTSIDE RECORDS SUMMARY | 2024-09-30 09:47 | XMS_ITS | Clinical Summary ---
Author Organization [facility] Care Team Providers Care Solid State Tester Name Role Phone Unavailable Primary Care Provider [...]
--- OUTSIDE RECORDS SUMMARY | 2024-09-30 09:48 | XMS_ITS | Referral Summary ---
Author Organization [address] Address [address] [address] Care Team Providers Care Avionic Technician Name Role Phone Saul Ruelas MD Primary Care Provider + [phone] Abiodun Red MD Unavailable [phone] Issac Amador MD Unavailable Encounters Date Type Department Care Team Description 09/16/2024 Orders Only [facility] [address] [place] [phone] Vicenta Early PA 09/08/2024 Results Follow-Up [facility] [address] [place] [phone] Issac Amador MD 09/08/2024 10:21 AM [facility] - 09/08/2024 11:59 PM [facility] Hospital Encounter [address] [phone] Sicca complex; Polyarthralgia Discharge Disposition: Discharge to home or self care 09/01/[address] [phone] Vicenta Early PA 09/01/2024 10:30 AM [facility] Office Visit [facility] [address] [place] [phone] Vicenta Early PA Sicca complex (Primary Dx); Polyarthralgia from Last 3 Months Allergies No known [...] uplicate order) fexofenadine (ANNIKA) 180 mg tablet 09/16/192024 Discontinued(P atient Reported) fluticasone propionate (FLONASE) 50 mcg/actuation nasal spray 09/16/192024 Discontinued(P atient Reported) simethicone (MYLICON) 80 mg chewable tablet 09/16/19 21 2024 Discontinued(P atient Reported) aspirin 325 mg 325 mg 2024 Discontinued(A lternate therapy) cyanocobalamin (Vitamin B-12) 1,000 mcg/mL injection 02/28/202024 Discontinued Proctofoam HC rectal foam 12/30/19 21 [...] seen Assessment & Plan (09/01/2024 12:03 PM [facility]): 44-year-old female with PMHx of HTN, HLD, [...] hand/wrist US to further evaluate. Increase Pilocarpine /5; avoiding higher dosing as she already notes diaphoresis with this. Continue HCQ 200mg daily for now. Will start meloxicam 7.5mg daily. Discussed side effects of the medication, including but not limited to GI upset, kidney, and ulcers. Deferring higher dosing due to hx GERD. Will contact industrial technologist for records. Follow up in 2 weeks. Sooner if needed. Seen with Dr. Amador. TONY (obstructive sleep apnea) 10/05/2020 Assessment & Plan (07/01/2024 10:25 AM [facility]): Patient continue with CPAP at 8 cm water pressure while sleeping. She was intolerable of higher pressures in the past. DME is [facility]. Assessment & Plan (06/28/2023 11:59 AM [facility]): Due to continued symptoms, the patient will continue CPAP at 8 cm water pressure. The patient has an elevated AHI, however she is intolerant of higher pressure. Denied need for supplies. DME [facility] Assessment & Plan (06/27/2022 12:02 PM [facility]): Patient continue to wear CPAP at 8 cm water pressure while sleeping. Her DME is [facility]. The patient did not tolerate an increase in her pressures in the past. Assessment & Plan (06/30/2021 11:05 AM [facility]): Patient continue to wear CPAP at 8 [...] her mouth coming open while sleeping. The [employer] company is [employer]. The patient is benefitting from CPAP therapy. Other insomnia 10/05/2020 Assessment & Plan (07/01/2024 10:25 AM [facility]): The patient continues with Lunesta 3 mg on most nights. Assessment & Plan (06/28/2023 11:58 AM [facility]): Due to continued symptoms, the patient will continue Lunesta 3 mg nightly. I have refilled the medication and will refill for 1 year Patient is aware that she should wear her CPAP machine if taking the medication. Assessment & Plan (06/27/2022 12:02 PM [facility]): The patient will continue with Lunesta 3 mg p.o. at bedtime to treat insomnia. Assessment & Plan (06/30/2021 11:04 AM [facility]): The patient will continue with Lunesta 3 [...] on file Legal Sex Female 9:00 AM [facility] Gender Identity Female 09/06/2024 3:20 PM [facility] Sexual Orientation Not on file Last Filed Vital Signs Vital Sign Reading Time Taken Comments Blood Pressure 134/76 09/01/2024 10:16 AM [facility] Pulse 106 09/01/2024 10:16 AM [facility] Temperature 36.4 C (97.6 F) 07/01/2024 9:59 AM [facility] Respiratory Rate 18 07/01/2024 9:59 AM [facility] Oxygen Saturation 96% 09/01/2024 10:16 AM [facility] Inhaled Oxygen Concentration - - Weight 127 kg (280 lb) 09/01/2024 10:16 AM [facility] Height 177.8 cm (5' 10 ) 09/01/2024 10:16 AM [facility] Body Mass Index 40.18 09/01/2024 10:16 AM [facility] Plan of Treatment Not on file Procedures Procedure Name Priority Date/Time Associated Diagnosis Comments SCAN - RADIOLOGY/IMAGING 09/16/2024 4:34 PM [facility] US HAND COMPLETE Schedule Routine, Read Routine (OP Routine) 09/08/2024 11:12 AM [facility] Sicca complex Polyarthralgia ERYTHROCYTE SEDIMENTATION RATE Routine 09/01/2024 11:37 AM [facility] Sicca complex Polyarthralgia CRP (ACUTE PHASE) Routine 09/01/2024 11: 37 AM [facility] Sicca complex Polyarthralgia COMPREHENSIVE METABOLIC PANEL Routine 09/01/2024 11:37 AM [facility] Sicca complex Polyarthralgia CBC WITH AUTO DIFFERENTIAL Routine 09/01/2024 11:37 AM [facility] Sicca complex Polyarthralgia MISCELLANEOUS LAB TEST Routine 09/01/2024 10:09 AM [facility] Sicca complex Polyarthralgia from Last 3 Months Results * SCAN - RADIOLOGY/IMAGING (09/16/2024 4:34 PM [facility]) Anatomical Region Laterality Modality Other us Vicenta LANDA Final Result * US Hand Complete (09/08/2024 11:12 AM [facility]) Anatomical Region Laterality Modality Hand N/A Ultrasound Issac Amador MD [facility] US PROCEDURES Final Result * (ABNORMAL) CBC with auto differential (09/01/2024 11:37 AM [facility]) WBC 7.9 3.8 - 10.8 Thousand/u L [...] [facility] Blood 09/01/2024 11:3 7 AM [facility] 09/01/2024 11:37 AM [facility] us Issac Amador MD LAB BLOOD ORDERABLES Final Res ult Performing Organization Address [facility] de Phone Number [facility] [address] [place] [address] * Erythrocyte sedimentation rate (09/01/2024 11:37 AM [facility]) Erythrocyte sedimentation rate 9 < OR = 20 mm/h [facility] Blood 09/01/2024 11:3 7 AM [facility] 09/01/2024 11:37 AM [facility] us Issac Amador MD LAB BLOOD ORDERABLES Final Res ult Performing Organization Address [facility] Phone Number [facility] [address] [place] [address] * CRP (acute phase) (09/01/2024 11:37 AM [facility]) C-RP <3.0 <8.0 mg/L [facility] Blood 09/01/2024 11:3 7 AM [facility] 09/01/2024 11:37 AM [facility] us Issac Amador MD LAB BLOOD ORDERABLES Final Res ult Performing Organization Address [facility] Phone Number [facility] [address] [place] [address] * Comprehensive metabolic panel (09/01/2024 11:37 AM [facility]) Glucose 71 65 - 99 mg/dL [facility] Blood 09/01/2024 11:3 7 AM [facility] 09/01/2024 11:37 AM [facility] Issac Amador MD LAB BLOOD ORDERABLES Final Res ult Performing Organization Address [facility]/ZIP Co de Phone Number [facility] [address] [place] [address] * AVISE CTD - Miscellaneous Test (09/01/2024 10:09 AM [facility]) Miscellaneous Issac Amador MD LAB BLOOD ORDERABLES Final Res ult EXTERNAL LAB from Last 3 Months Insurance [address] [place] [address] [facility] [address] [place] [address] [email or web address] [facility] [address] [place] [address] [place] [facility] [address] [place] [address] Care Teams Avionic Technician Relationship Specialty Start Date End Date Saul Ruelas MD PCP - General Family Medicine 08/25/20 Abiodun Red MD [address] [place] [address] Referring Physician Neurology 11/27/22 Issac Amador MD [address] [place] [address] Consulting Physician Rheumatology 07/23/24
--- OUTSIDE RECORDS SUMMARY | 2024-09-30 09:48 | XMS_ITS | Patient Health Record ---
Author Organization [facility] Address [address] [place], [place] [id number] Care Team Providers Care Traffic Rate Analyst Name Role Phone KENYON HARRIS Unavailable [phone] Darci Woody Unavailable Unavailable Allergies No Known Allergies Reason For Referral Reason [facility] REFERRAL ( S URGERY ) [id number] / [facility] / [facility]. KLL Diagnosis 1 Tailor's bunion of r ight foot (M21.621) Referred Organization [facility] Referred Provider KENYON HARRIS Referred Address [address],[place], [id number], Referred Provider Specialty Podiatry Referral Priority Routine Medications Medication SIG (Take, Route, Frequency, Duration) Notes Start Date End Date Status Medrol 4 MG as directed Orally 04/24/2024 Active Vital Signs Height-cm 177.80 cm 04/24/2024 Weight-kg 113.4 kg 04/24/2024 Height 70.00 in 04/24/2024 Weight 250 lbs 04/24/2024 BMI 35.87 kg/m2 04/24/2024 Encounters Encounter Location Date Provider Diagnosis [facility] [address] [place], [place] [id number] 04/24/2024 KENYON HARRIS Tailor's bunion of right foot M21.621 ; Bunionette of left foot M21.622 and Pain in right foot M79.671 [facility] [address] [place], [place] [id number] 05/22/2024 KENYON HARRIS Tailor's bunion of right foot M21.621 ; Bunionette of left foot M21.622 ; Pain in right foot M79.671 and Left foot pain M79.672 [facility] [place] [address] [place] [phone] 06/26/2024 KENYON HARRIS Tailor's bunion of right foot M21.621 ; Bunionette of left foot M21.622 ; Pain in right foot M79.671 and Left foot pain M79.672 [facility] [place] [address] [place] [id number] 07/24/2024 KENYON HARRIS Tailor's bunion of right foot M21.621 ; Bunionette of left foot M21.622 ; Pain in right foot M79.671 and Left foot pain M79.672 [facility] [place] [address] [place] [phone] 08/14/2024 KENYON HARRIS Tailor's bunion of right [...] Details Provider Name:KENYON SPIVEY, 10/02/2024 07:30:00 AM, [address] [place] [address], [phone], Provider Name:KENYON SPIVEY, 10/09/2024 03:10:00 PM, [address], [place], [place], [phone], Insurance Providers Payer Name Payer Address Payer Phone Subscriber Number Group Number Insured Name Patient Relationship to Insured Coverage Start Date Coverage End Date [facility] ([facility]) ATTN CLAIMS [address] [place] [address] [id number] ANGELICA BLACK Self - patient is the insured [employer] [address] [place], [place] [phone] [id number] ANGELICA BLACK Self - patient is the insured 3
--- OUTSIDE RECORDS SUMMARY | 2024-09-30 09:48 | XMS_ITS ---
Author Organization [facility] Address [address] [facility] [address] [place], [place] [phone] Care Team Providers Care Consumer Services Advisor Name Role Phone KENYON FORREST Unavailable [phone] Darci Woody Unavailable Unavailable REASON FOR VISIT *Injection follow-up Medications Medication SIG (Take, Route, Frequency, Duration) Notes Start Date End Date Status Medrol 4 MG as directed Orally 04/24/2024 Active Encounters Encounter Location Date Provider Diagnosis [facility] [address] [place], [place] [phone] 06/26/2024 KENYON FORREST Tailor's bunion of right [...] 10/02/2024 07:30:00 AM, [address], [place], [address], Provider Name:KENYON SPIVEY, 10/09/2024 03:10:00 PM, [address] [facility] [address], [place], [place], [phone], Progress Notes * SOFIA ANGELICA LDOB: 0 (44 yo F)Acc No.[id number]:06/26/2024 Patient: ANGELICA ADKINS Provider: Kan Forrest DPM :1980 A ge:44 Y S ex:Female Date:06/26/2024 Address:[address] [place] [address] , [id number] Subjective: * Chief Complaints: * * Injection [...] 50 * Billing Information: * Visit Code: 40611 Office Visit, Est Pt., Level 3. Modifiers: 25 * Procedure Codes: 22358 DRAIN/INJECT, JOINT/BURSA. Modifiers: 50 * GING CAR OPERATOR Sign off status: Completed true * Provider: Kan Forrest DPM Date: 08/27/2023 Generated for Dalia grace/Faxing/eTransmitting on: 0 09/30/2024 09:48 AM CDT History and Physical Notes * [...]
--- OUTSIDE RECORDS SUMMARY | 2024-09-30 09:48 | XMS_ITS | Data Portability ---
Author Organization [facility], [facility] Address [address] [address] Assessment Encounter Date Assessment Date Assessment LastModified [...] [facility], [address], [address], [place], [address], 0 16:13:19 Referral None recorded. Procedures nerve conductio n study/EMG , upper extremity (PROC) - bilateral upper extremity EMG 2019 [facility], [address], [address], [place], [address], 0 19:22:09 lumbar radiofreq uency lesioning (PROC) - RFA of Left L3,L4,L5 w/ IV sedation to be done by Dr. Marr at [facility] 2019 020 [email or web address] Jorge Alberto Marr MD, [address], [address], [place], [address], 0 17:40:34 Surgeries None recorded. Imaging None recorded. Medication Orders Suboxone 8 mg-2 mg sublingua l film 2019 [facility], [facility], [place], [address], 0 18:36:27 Suboxone 8 mg-2 mg sublingua l film 2019 INTERFACE [facility], [address], [place], [address], 0 18:36:12 Suboxone 8 mg-2 mg sublingua l film 2019 INTERFACE [facility], [facility] 10, [place], [address], 0 18:36:22 lidocaine 5 % topical patch 2019 020 INTERFACE [facility], [address] [facility] [address], [place], [address], 0 18:36:17 Suboxone 8 mg-2 mg sublingua l film 2019 020 INTERFACE [facility], [facility] [address], [place], [address], 0 14:35:52 Suboxone 8 mg-2 mg sublingua l film 2019 020 INTERFACE [facility], [address] [place] [address] 10, [place], [address], 0 15:16:01 Suboxone 8 mg-2 mg sublingua l film 2019 020 [email or web address] Not available 0 16:53:01 Patient TargetsNo targets recorded. Patient Instructions Encounter Date Encounter Id Patient Instructions Last Modified By Organization Details Last Modified Time 11/20/2019 [id number] Last UADS obtain ed on 09/29/2019 +buprenorphine consistent for prescribed medication Medication List was reviewed and/or updated during this visit, including review of any qprf-lja-ousdpqh medications, herbal therapies, and/or supplements. [place] Prescription Drug Monitoring program was reviewed today. [...] prn RR Not available 11/20/2019 14:55:30 12/18/2019 [id number] UDS collected today. Will await final confirmation from the laboratory. She will be screened today for adherence to her treatment plan and medication compliance. Medication List was reviewed and/or updated during this visit, including review of any fbup-lts-opfsudw medications, herbal therapies, and/or supplements. Allergies updated. [place] Prescription Drug Monitoring program was reviewed today, appropriate. Risk Assessment: 9- high Risk. Ms. Guardado did not exhibit any behaviors today that would indicate illicit drug use. This assessment was obtained using the [place] Opioid Risk Tool on 11/06/2018. MED: 0 according to the [place] Prescription Drug Monitoring Program. A sleep study [...] order for a nerve conduction study to [facility] was sent on 11/20/2019. [facility] reported back stating that they need a DC authorization request put in before proceding with the nerve condution study. She denies any cravings, relapses or persistent thoughts at this time. She is stable on her current suboxone regimen and denies any side effects or adverse reactions. Patient reports she is currently attending counseling 2-3 times a month with [facility]. Patient was educated on the positive [...] or corrections. Not available 12/22/2019 13:00:59 02/16/2020 [id number] Last UADS obtain ed on 12/18/2019 +buprenorphine consistent for prescribed medication Medication List was reviewed and/or updated during this visit, including review of any jrcq-unw-hptsbax medications, herbal therapies, and/or supplements. Allergies updated. [place] Prescription Drug Monitoring program was reviewed today, [...] Clinic [address], [place], [address], 12/22/2019 16:13:19 12/18/19 20 12/22/2019 full panel barbiturates Negati ve < 200 Not Available [facility] [address], [place], [address], 12/22/2019 16:13:19 12/18/19 20 12/22/2019 full panel benzodiazepi brandy Positi ve < 200 high Not Available [facility] [address], [place], [address], 12/22/2019 16:13:19 12/18/19 20 12/22/2019 full panel buprenorphin e Positi ve < 20 high Not Available [facility] [address], [place], [address], 12/22/2019 16:13:19 12/18/19 20 12/22/2019 full panel cocaine Negati ve < 150 Not Available [facility] [address], [place], [address], 12/22/2019 16:13:19 12/18/19 20 12/22/2019 full panel ecstasy Negati ve < 500 Not Available [facility] [address], [place], [address], 12/22/2019 16:13:19 12/18/1912/22/2019 full panel heroin 6AM Negati ve < 10 Not Available [facility] [address], [place], [address], 12/22/2019 16:13:19 12/18/19 20 12/22/2019 full panel methadone metabolite Negati ve < 1000 Not Available [facility] [address], [place], [address], 12/22/2019 16:13:19 12/18/19 20 12/22/2019 full panel opiates Negati ve < 300 Not Available [facility] [address], [place], [address], 12/22/2019 16:13:19 12/18/19 20 12/22/2019 full panel oxycodone Negati ve < 300 Not Available [facility] [address], [place], [address], 12/22/2019 16:13:19 12/18/19 20 12/22/2019 full panel pcp Negati ve < 25 Not Available [facility] [address], [place], [address], 12/22/2019 16:13:19 12/18/19 20 12/22/2019 full panel creatinine Normal >= 20 normal Not Available [facility] [address], [place], [address], 12/22/2019 16:13:19 12/18/19 20 12/22/2019 full panel pH Normal 4.5 - 9 normal Not Available [facility] [address], [place], [address], 12/22/2019 16:13:19 12/18/19 20 12/22/2019 full panel specific gravity Normal NG/mL 1.004 - 1.036 normal Not Available [facility] [address], [place], [address], 12/22/2019 16:13:19 12/18/19 20 12/22/2019 full panel oxidant Normal <= 200 normal Not Available [facility] [address], [place], [address], 12/22/2019 16:13:19 12/18/19 20 12/22/2019 full panel temperature Normal F manual normal Not Available [facility] [address], [place], [address], 12/22/2019 16:13:19 Result Notes None recorded. Problems Name Problem SNOMED Code Status Onset Date Resolution Date Notes Provider Name and Address Organization Details Recorded Time Chronic pain 52914645 Active 2018 Giselle hong [facility] 9 15:36:58 Opioid dependence 44451535 Active 2018 Giselle hong [facility] 9 15:57:42 Low back pain 279052242 Active 2018 Giselle hong [facility] 9 15:57:49 Sacroiliac joint pain 684896403 Active 2018 Giselle hong [facility] 9 15:57:58 Fibromyalg ia 053121289 Active 2018 Giselle hong [facility] 9 15:58:07 Central sleep apnea syndrome 53759692 Active 2018 Giselle hong [facility] 9 15:58:40 Chronic neck pain 9317722256125 Active 2018 Bhavik Garcia MD [address] [facility] [address], [place], [address] , [facility] 9 00:15:21 Thompson's neuroma of right foot 8656919772744 08 Active 2018 Bhavik Garcia MD [address] [facility] [address], [place], [address] , [facility] 9 23:50:15 Lumbar spondylosi s 714398975 Active 2018 Eddie hong [facility] 9 15:21:27 Spasm 25713521 Active 2018 [facility] 9 15:21:29 Numbness of hand 857481295 [facility] 0 14:33:48 Problem Notes None recorded. Procedures Surgical History Date Name Laterality Status Provider Name and Address Organization Details Recorded Time 09/08/19 20 Lumbar Medial Branch Blocks With Sedation completed Bhavik Garcia MD [address], [place], [address], [facility] 09/08/2019 14:27:56 03/27/20 19 Sacroiliac Joint Steroid Injection Under Fluoroscopy completed Bhavik Garcia MD [address], [place], [address], [facility] 03/27/2019 18:35:31 02/14/20 19 Lumbar Medial Branch Block completed Bhavik Garcia MD [address], [place], [address], [facility] 02/13/2019 19:37:43 03/16/20 12 repair of hernia of abdominal wall completed [facility] 11/05/2018 15:22:20 bariatric operative procedure completed [facility] 11/05/2018 15:26:48 section completed [facility] 11/05/2018 15:20:01 Cholecystectomy completed [facility] 11/05/2018 15:23:52 closure of patent foramen ovale completed [facility] 11/05/2018 15:25:01 exploratory laparotomy completed [facility] 11/05/2018 15:26:14 Gastric bypass for obesity completed [facility] 11/05/2018 15:26:35 Imaging Results None recorded. Procedure Notes None recorded. Medical Equipment None Reported. Allergies Allergen ID Allergen Name Allergen Category Reaction Reaction Severity Criticality Documentation Date Start Date Code Code System Note Provider Name and Address Organization Details Recorded Time zolpidem medicatio n other Not available Not available 11/05/2018 41715 RxNorm [facility] 0 12:09:52 oxycodone medicatio n other Not available Not available 11/05/2018 7804 RxNorm Tadeo Kitchen [facility] 0 12:09:49 lorazepam medicatio n other Not available Not available 11/05/2018 6470 RxNorm [facility] 0 12:09:47 Medications [...] Not Available Not Available Not Available vitamin V10-llhzh acid injection solution Take 1 mL every [...] Do You Have An Advance Directive? Yes [email or web address] Information not available 11/06/2018 What Is Your Level Of Alcohol Consumption? None Information not available 11/06/2018 Auto Related Injury? No [email or web address] Information not available 11/06/2018 Are You Blind Or Do You Have Difficulty Seeing? Yes [email or web address] Information not available 11/06/2018 What Is Your Level Of Caffeine Consumption? Moderate [email or web address] Information not available 11/06/2018 How Much Tobacco Do You Chew? None Information not available 11/06/2018 Are You Currently Employed? No [email or web address] Information not available 11/06/2018 What Type Of Diet Are You Following? REGULAR [email or web address] Information not available 11/06/2018 Education 2 Year College [email or web address] Information not available 11/06/2018 Which Of Your Hands Is Dominant? Right [email or web address] Information not available 11/06/2018 Live Alone Or With Others? With Others [email or web address] Information not available 11/06/2018 Marital Status [email or web address] Informatio n not available 11/06/2018 What Was The Date Of Your Most Recent Tobacco Screening? 01/14/2019 Information not available 02/06/2019 What Types Of Sporting Activities Do You Participate In? No Information not available 08/26/2019 General Stress Level Medium [email or web address] Information not available 11/06/2018 Work Related Injury? No [email or web address] Information not available 11/06/2018 Sex: Unknown Functional Status Question Answer Note LastModified by Organizat ion Details LastModified Time Do you have difficulty walking or climbing stairs? Yes Information not available 11/06/2018 What is your exercise level? Occasional [email or web address] Information not available 11/06/2018 Mental Status None recorded. Family History Relationship Description Onset Age of this Age Resolved Age Notes LastModified by Organization Details LastModified Time Maternal Grandmother Hypertensive disorder [email or web address] Not available 11/06 15:34:10 Maternal Grandmother Heart disease [email or web address] Not available 11/06 15:34:10 Mother Disorder of thyroid gland [email or web address] Not available 11/06 15:34:10 Mother Osteoporosis [email or web address] Not matthew ilable 11/06/2018 15:34:10 Father Diabetes mellitus [email or web address] Not available 11/06 15:34:10 Father Depressive disorder [email or web address] Not available 11/06 15:34:10 Father Anxiety disorder [email or web address] Not available 11/06 15:34:10 Brother Depressive disorder [email or web address] Not available 11/06 15:34:10 Brother Anxiety disorder [email or web address] Not available 11/06 15:34:10 Sister Disorder of thyroid gland Not available 11/06 15:34:10 Medical History Condition Response Thyroid Disease Y Kidney Stones N Hernia Y Depression N COPD N Lung Disease N Glaucoma N Irregular Heart Beats N History of chest pain N History of Blood Clots Y Arthritis N Shingles N Mental Disorder N Cancer N Stroke Y High Cholesterol N Muscular Dystrophy N Liver Disease N Fractures N Headaches Y Fibromyalgia Y Irritable Bowel Syndrome N Kidney Disease N HIV N Anxiety Y Scoliosis N Ear or Hearing Problems N Fatigue Y Joint Pain Y Anemia N Multiple Sclerosis N Back Pain Y Ulcers N Diabetes N Seizures/Epilepsy N Blood Disorder N Heart Murmur N Congestive Heart Failure (CHF) N Kidney Failure N Weakness of Limb Y AIDS N Asthma N Lupus N Peripheral Vascular Disease N Sleep Disorder Y Hepatitis N Hearing Aid Worn N Heart Disease N Hypertension N Gynecological History Statement/Question Response Abnormal Pap N Obstetrics History GPAL:G 0 P 0 0 0 0 Past Encounters Encounter ID Performer Location Encounter Start Date Encounter Closed Date Diagnosis/Indication Diagnosis SNOMED-CT Code Diagnosis ICD10 Code Diagnosis Note [id number] Bhavik Garcia MD Main Office [address] [address] 11/06/2018 14:13:34 11/08/2018 15:40:28 Chronic pain 34124198 G89.29 Pt hs been on opioids since 2012Pt has been weaning down on the opioids for the past year.Pt has noticed withdrawal symptoms Long-term drug therapy 569148065 Z79.899 Opioid dependence 747013 00 F11.20 weaned of Provigil in Oct 2018 Low back pain 639437906 M54.5 CT L-spine (11 Jun 2018)-- slight retrolisth esis of L2 on L3. Mild degenerati ve changes of T12-L3, No CS, No NFS Sacroiliac joint pain 20 6006606 M53.3 Patient to obtain records Fibromyalgia 627086429 M 79.7 on Lyrica 150 mg po bid Central sl eep apnea syndrome 33767796 G47.31 Bi-Pap machine -JBER Chronic neck pain 349885 [address] C-spine (11 Jun 2018) -- mild DDD of the lower C-spine. No acute injury CT T-spine (11 Jun 2018)-- No abnormalit y [id number] Bhavik Garcia MD Main Office [address] [address] 11/21/2018 13:45:29 11/26/2018 16:57:24 Chronic pain 96536575 G89.29 Pt hs been on opioids since 2012Pt has been weaning down on the opioids for the past year.Pt has noticed withdrawal symptoms Opioid dependence 770459 00 F11.20 weaned of Provigil in Oct 2018 Constipation 92834136 K5 9.00 recommend using miralax on a daily basis Central sl eep apnea syndrome 20243555 G47.31 Bi-Pap machine -JBER Low back pain 517072558 M54.5 CT L-spine (11 Jun 2018)-- slight retrolisth esis of L2 on L3. Mild degenerati ve changes of T12-L3, No CS, No NFS Fibromyalgia 769555874 M 79.7 on Lyrica 150 mg po bid [id number] Bhavik Garcia MD Main Office [address] [address] 12/11/2018 12:32:03 12/13/2018 14:05:44 Chronic pain 25784196 G89.29 Pt hs been on opioids since 2012Pt has been weaning down on the opioids for the past year.Pt has noticed withdrawal symptoms Low back pain 125782049 M54.5 CT L-spine (11 Jun 2018)-- slight retrolisth esis of L2 on L3. Mild degenerati ve changes of T12-L3, No CS, No NFS Sacroiliac joint pain 20 5246487 M53.3 Patient to obtain records Opioid dependence 345672 00 F11.20 started suboxone on 06 November 2018 weaned of Provigil in Oct 2018 Jay's n euroma of right foot 0001845299 89564 G57.61 scheduled for [facility] Neuroma excision on 12 Dec 2018 from the right foot Pt plans to use the buprenorph ine for pain controlmay also use Ibuprofen / TylenolIf worse pain than expected will use short course of oxycodone Central sl eep apnea syndrome 92920458 G47.31 Bi-Pap machine -JBER Fibromyalgia 482447771 M 79.7 on Lyrica 150 mg po bid [id number] Bhavik Garcia MD Main Office [address] [facility] [address] [place] [address] 12/17/2018 13:08:21 12/23/2018 15:48:29 Chronic pain 50632150 G89.29 Pt hs been on opioids since 2012Pt has been weaning down on the opioids for the past year.Pt has noticed withdrawal symptoms Opioid dependence 114029 started suboxone on 06 November 2018 weaned of Provigil in Oct 2018 Jay's n euroma of right foot 4077600906 20188 G57.61 scheduled for [facility] Neuroma excision on 12 Dec 2018 from the right foot Pt plans to use the buprenorph ine for pain controlmay also use Ibuprofen / TylenolIf worse pain than expected will use short course of oxycodone Low back pain 950439800 M54.5 CT L-spine (11 Jun 2018)-- slight retrolisth esis of L2 on L3. Mild degenerati ve changes of T12-L3, No CS, No NFS Sacroiliac joint pain 20 9341072 M53.3 Patient to obtain records Central sl eep apnea syndrome 70799796 G47.31 Bi-Pap machine -JBER Fibromyalgia 889077638 M 79.7 on Lyrica 150 mg po bid [id number] Bhavik Garcia MD Main Office [address] [facility] [address] [place] [address] 01/14/2019 14:33:23 01/22/2019 13:33:27 Opioid dependence 93338590 1. started suboxone on 06 November 2018 weaned of Provigil in Oct 2018 Thompson's n euroma of right foot 7639751999 72309 G57.61 [facility]ons Neuroma excision on 12 Dec 2018 from the right foot on MOLLY (Dr. Collier) Pt plans to use the buprenorph ine for pain controlmay also use Ibuprofen / TylenolIf worse pain than expected will use short course of oxycodone Sacroiliac joint pain 20 8337764 M53.3 Patient to obtain records Central sl eep apnea syndrome 45273175 G47.31 Bi-Pap machine -JBER Fibromyalgia 630073341 M 79.7 on Lyrica 150 mg po bid Spasm 93415593 R25.2 Took over Cyclobenza la Lumbar spondylosis [address] L-spine (11 Jun 2018)-- slight retrolisth esis of L2 on L3. Mild degenerati ve changes of T12-L3, No CS, No NFS Ordered BL MBB L3-5 [id number] Bhavik Garcia MD Main Office [address] [place] [address] 02/10/2019 18:15:08 02/18/2019 18:01:34 Opioid dependence 66052892 F11.20 started suboxone on 06 November 2018 weaned of Provigil in Oct 2018 Lumbar spondylosis [address] L-spine (11 Jun 2018)-- slight retrolisth esis of L2 on L3. Mild degenerati ve changes of T12-L3, No CS, No NFS scheduled for MBB#1 stephon L3,L4,L5 on 13 Feb 2019 Thompson's n euroma of right foot 9615514216 61477 G57.61 [facility]ons Neuroma excision on 12 Dec 2018 from the right foot on [facility] (Dr. Collier) healing well Sacroiliac joint pain 20 0307920 M53.3 Patient to obtain records Central sl eep apnea syndrome 54873135 G47.31 Bi-Pap machine -JBER Fibromyalgia 746372759 M 79.7 on Lyrica 150 mg po bid Spasm 32343276 R25.2 Took over Cyclobenza la Chronic pain 31250311 G8 9.29 Pt hs been on opioids since 2012Pt has been weaning down on the opioids for the past year.Pt has noticed withdrawal symptoms [id number] Bhavik Garcia MD Main Office [address] [facility] [address] [place] [address] 02/13/2019 18:47:41 02/20/2019 16:21:24 Lumbar spondylosis 091979981 M47.816 CT L-spine (11 Jun 2018)-- slight retrolisth esis of L2 on L3. Mild degenerati ve changes of T12-L3, No CS, No NFS completed stephon L3,L4, L5 MBB#1 on 13 Feb 2019 [id number] Bhavik Garcia MD Main Office [address] [facility] [address] [place] [address] 03/10/2019 17:38:53 03/18/2019 18:30:29 Opioid dependence 59973929 F11.20 started suboxone on 06 November 2018 weaned of Provigil in Oct 2018 Lumbar spondylosis [address] L-spine (11 Jun 2018)-- slight retrolisth esis of L2 on L3. Mild degenerati ve changes of T12-L3, No CS, No NFS completed stephon L3,L4, L5 MBB#1 on 13 Feb 2019 -- reports>80 % pain reductionw ill schedule MBB#2 L3,L4,L5 Thompson's n euroma of right foot 6305519820 96907 G57.61 Mortons Neuroma excision on 12 Dec 2018 from the right foot on JBER (Dr. Collier) healing well Central sl eep apnea syndrome 07958352 G47.31 Bi-Pap machine -JBER Fibromyalgia 373716904 M 79.7 on Lyrica 150 mg po bid Spasm 01986475 R25.2 Took over Cyclobenza la Long-term drug therapy 189050535 Z79.899 [id number] Bhavik Garcia MD Main Office [address] [facility] [address] [place] [address] 03/27/2019 17:36:09 04/03/2019 13:06:15 Sacroiliac joint pain 417421244 M53.3 completed left SI jt injection on 27 Mar 2019 [id number] Bhavik Garcia MD Main Office [address] [facility] [address] [place] [address] 04/08/2019 13:42:28 04/15/2019 13:49:15 Opioid dependence 13531555 F11.20 started suboxone on 06 November 2018 Lumbar spondylosis [address] L-spine (11 Jun 2018)-- slight retrolisth esis of L2 on L3. Mild degenerati ve changes of T12-L3, No CS, No NFS completed stephon L3,L4, L5 MBB#1 on 13 Feb 2019 -- reports>80 % pain reduction Schedued for MBB#2 L3,L4,L5 on 24 Apr 2019 Central sl eep apnea syndrome 13577329 G47.31 Bi-Pap machine -JBER Fibromyalgia 751558570 M 79.7 on Lyrica 150 mg po bid Spasm 75504249 R25.2 Long-term drug therapy 319052369 Z79.899 Sacroiliac joint pain 20 6617705 M53.3 completed left SI jt injection on 27 Mar 2019--80% pain reduction [id number] Bhavik Garcia MD Main Office [address] [facility] [address] [place] [address] 05/06/2019 13:38:05 05/13/2019 14:09:45 Opioid dependence 05692107 F11.20 started suboxone on 06 November 2018 Sacroiliac joint pain 20 7739300 M53.3 completed left SI jt injection on 27 Mar 2019--80% pain reduction Fibromyalgia 491500633 M 79.7 on Lyrica 150 mg po bid Spasm 99373016 R25.2 Central sl eep apnea syndrome 71484559 G47.31 Bi-Pap machine -JBER Long-term drug therapy 368871817 Z79.899 Lumbar spondylosis [address] L-spine (11 Jun 2018)-- slight retrolisth esis of L2 on L3. Mild degenerati ve changes of T12-L3, No CS, No NFS completed stephon L3,L4, L5 MBB#1 on 13 Feb 2019 -- reports>80 % pain reduction Scheduled for MBB#2 L3,L4,L5 on 12 May 2019 [id number] Bhavik Garcia MD Main Office [address] [address] 06/03/2019 15:40:20 06/16/2019 16:00:37 Opioid dependence 97027448 F11.20 started suboxone on 06 November 2018 Lumbar spondylosis [address] L-spine (11 Jun 2018)-- slight retrolisth esis of L2 on L3. Mild degenerati ve changes of T12-L3, No CS, No NFS completed stephon L3,L4, L5 MBB#1 on 13 Feb 2019 -- reports>80 % pain reduction will order MBB#2 L3,L4,L5 Sacroiliac joint pain 20 1790972 M53.3 completed left SI jt injection on 27 Mar 2019--80% pain reduction Fibromyalgia 512988859 M 79.7 on Lyrica 150 mg po bid Spasm 32629266 R25.2 Central sl eep apnea syndrome 16679637 G47.31 Bi-Pap machine -JBER Thompson's n euroma of right foot 8934327765 13203 G57.61 Mortons Neuroma excision on 12 Dec 2018 from the right foot on JBER (Dr. Collier) healing well Chronic pain 26453473 G8 9.29 Pt hs been on opioids since 2012Pt has been weaning down on the opioids for the past year.Pt has noticed withdrawal symptoms [id number] Bhavik Garcia MD Main Office [address] [place], [place] [address]Y [facility] [address] [place] [address] 06/30/2019 18:09:50 07/10/2019 17:49:54 Opioid dependence 63508080 F11.20 started suboxone on 06 November 2018 Chronic neck pain 184063 [address] C-spine (11 Jun 2018) -- mild DDD of the lower C-spine. No acute injury CT T-spine (11 Jun 2018)-- No abnormalit y Neck pain 86532532 M54.2 Lumbar spondylosis [address] L-spine (11 Jun 2018)-- slight retrolisth esis of L2 on L3. Mild degenerati ve changes of T12-L3, No CS, No NFS completed stephon L3,L4, L5 MBB#1 on 13 Feb 2019 -- reports>80 % pain reduction will order MBB#2 L3,L4,L5 [id number] Bhavik Garcia MD Main Office [address] [address] 07/29/2019 13:42:17 08/04/2019 18:41:56 Opioid dependence 06516899 F11.20 started suboxone on 06 November 2018 Chronic pain 21262347 G8 9.29 Pt hs been on opioids since 2013Pt has been weaning down on the opioids for the past year.Pt has noticed withdrawal symptoms Lumbar spondylosis [address] L-spine (11 Jun 2018)-- slight retrolisth esis of L2 on L3. Mild degenerati ve changes of T12-L3, No CS, No NFS completed stephon L3,L4, L5 MBB#1 on 13 Feb 2019 -- reports>80 % pain reduction will order MBB#2 L3,L4,L5 Sacroiliac joint pain 20 6330854 M53.3 completed left SI jt injection on 27 Mar 2019--80% pain reduction Long-term drug therapy 315348041 Z79.899 [id number] Bhavik Garcia MD Main Office [address] [address] 08/26/2019 14:00:21 08/29/2019 14:10:10 Opioid dependence 33372930 F11.20 started suboxone on 06 November 2018 Chronic pain 14336736 G8 9.29 Lumbar spondylosis [address] L-spine (11 Jun 2018)-- slight retrolisth esis of L2 on L3. Mild degenerati ve changes of T12-L3, No CS, No NFS completed stephon L3,L4, L5 MBB#1 on 13 Feb 2019 -- reports>80 % pain reduction will order MBB#2 stephon L3,L4,L5 Sacroiliac joint pain 20 1862415 M53.3 completed left SI jt injection on 27 Mar 2019--80% pain reduction Numbness of hand 9455759 04 R20.0 will order stephon UE EMG / NCS to r/o CTSwill set up with nocturnal wrist splints Spasm 63300209 R25.2 [id number] Bhavik Garcia MD Main Office [address] [address] 09/08/2019 13:31:26 09/12/2019 14:03:08 Lumbar spondylosis 185074654 M47.816 CT L-spine (11 Jun 2018)-- slight retrolisth esis of L2 on L3. Mild degenerati ve changes of T12-L3, No CS, No NFS completed stephon L3,L4, L5 MBB#1 on 13 Feb 2019 -- reports>80 % pain reduction completed stephon MBB#2 on 08 Sep 2019prepro cedure pain was 01/22 [id number] Yolis espinoza, Main Office [address] [address] 09/25/2019 13:48:32 09/25/2019 18:41:45 Lumbar spondylosis 468646383 M47.896 CT L-spine (11 Jun 2018)-- slight retrolisth esis of L2 on L3. Mild degenerati ve changes of T12-L3, No CS, No NFS completed stephon L3,L4, L5 MBB#1 on 13 Feb 2019 -- reports>80 % pain reduction L3, L4, L5 MBB #2 on 09/08/19: 80% relief Opioid dependence 741162 00 F11.20 Chronic pain 48196930 G8 9.29 Patient takes medication s for this condition. Numbness of hand 3298021 04 R20.0 UE EMG have been ordered. Pt. needs to schedule [id number] Bhavik Garcia MD Main Office [address] [address] 10/23/2019 13:59:53 10/31/2019 14:03:53 Opioid dependence 53840050 F11.20 started suboxone on 06 November 2018 Lumbar spondylosis [address] L-spine (11 Jun 2018)-- slight retrolisth esis of L2 on L3. Mild degenerati ve changes of T12-L3, No CS, No NFS completed stephon L3,L4, L5 MBB#1 on 13 Feb 2019 -- reports>80 % pain reduction Completed MBB#2 stephon L3,L4,L5 08 Sep 2019-80% relief Sacroiliac joint pain 20 0923993 M53.3 completed left SI jt injection on 27 Mar 2019--80% pain reduction Numbness of hand 8965288 04 R20.0 Occasional numbness right hand index middle and ring finger Chronic neck pain 673762 [address] C-spine (11 Jun 2018) -- mild DDD of the lower C-spine. No acute injury CT T-spine (11 Jun 2018)-- No abnormalit y [id number] Bhavik Garcia MD Main Office [address] [address] 11/20/2019 14:00:56 11/26/2019 18:42:05 Lumbar spondylosis 624684884 M47.816 CT L-spine (11 Jun 2018)-- slight retrolisth esis of L2 on L3. Mild degenerati ve changes of T12-L3, No CS, No NFS completed stephon L3,L4, L5 MBB#1 on 13 Feb 2019 -- reports>80 % pain reduction Completed MBB#2 stephon L3,L4,L5 08 Sep 2019-80% relief will order Left RFA L3,L4,L5sc heduled for right RFA L3,L4,L5 on 05 Dec 2019 Opioid dependence 929449 00 F11.20 started suboxone on 06 November 2018 Sacroiliac joint pain 20 9605865 M53.3 completed left SI jt injection on 27 Mar 2019--80% pain reduction Numbness of hand 7496998 04 R20.0 Occasional numbness right hand index middle and ring fingerwill order NCS / EMG of the UE Chronic neck pain 548508 [address] C-spine (11 Jun 2018) -- mild DDD of the lower C-spine. No acute injury CT T-spine (11 Jun 2018)-- No abnormalit y [id number] Jorge Alberto Marr MD Main Office [address] [employer] [address] [address] 12/05/2019 12:11:05 12/17/2019 19:36:10 [id number] Bhavik Garcia MD Main Office [address] [employer] [address] [address] 12/18/2019 14:00:17 12/29/2019 13:43:26 Opioid dependence 73048364 F11.20 started suboxone on 06 November 2018[facility] month Lumbar spondylosis [address] L-spine (11 Jun 2018)-- slight retrolisth esis of L2 on L3. Mild degenerati ve changes of T12-L3, No CS, No NFS completed stephon L3,L4, L5 MBB#1 on 13 Feb 2019 -- reports>80 % pain reductionC ompleted MBB#2 stephon L3,L4,L5 08 Sep 2019-80% relief completed right RFA L3,L4,L5 on 05 Dec 2019---rep orts 80% pain reduction Sacroiliac joint pain 20 3827633 M53.3 completed left SI jt injection on 27 Mar 2019--80% pain reduction Numbness of hand 6659454 04 R20.0 Occasional numbness right hand index middle and ring fingerneed to reorder NCS / EMG of the UE to [facility] Chronic neck pain 000186 [address] C-spine (11 Jun 2018) -- mild DDD of the lower C-spine. No acute injury CT T-spine (11 Jun 2018)-- No abnormalit y Long-term drug therapy 644764782 Z79.899 [id number] Bhavik Garcia MD Main Office [address] [place], [place] [address] [address] [address] 01/19/2020 13:53:44 01/30/2020 19:48:04 Opioid dependence 55669952 F11.20 started suboxone on 06 November 2018Goes to [facility] 2[facility]3 times a month Lumbar spondylosis [address] L-spine (11 Jun 2018)-- slight retrolisth esis of L2 on L3. Mild degenerati ve changes of T12-L3, No CS, No NFS completed stephon L3,L4, L5 MBB#1 on 13 Feb 2019 -- reports>80 % pain reductionC ompleted MBB#2 stephon L3,L4,L5 08 Sep 2019-80% relief completed right RFA L3,L4,L5 on 05 Dec 2019---rep orts 80% pain reduction Sacroiliac joint pain 20 3856429 M53.3 completed left SI jt injection on 27 Mar 2019--80% pain reduction Numbness of hand 7079838 04 R20.0 Occasional numbness right hand index middle and ring fingerneed to reorder NCS / EMG of the UE to [facility] Chronic neck pain 951131 [address] C-spine (11 Jun 2018) -- mild DDD of the lower C-spine. No acute injury CT T-spine (11 Jun 2018)-- No abnormalit y [id number] Bhavik Garcia MD Main Office [address] [place] [address] [place] [address] 02/16/2020 17:03:53 02/23/2020 18:27:24 Opioid dependence 43626190 F11.20 started suboxone on 06 November 2018[facility] to [facility] Numbness of hand 8080438 04 R20.0 Occasional numbness right hand index middle and ring fingerneed to reorder NCS / EMG of the UE to [facility] PTOrder was not improved through tricarePt is PCSing out of area through the in 3 weeks Sacroiliac joint pain 20 6578227 M53.3 completed left SI jt injection on 27 Mar 2019--80% pain reduction Pt reports LBP with radicular down to the knees Lumbar spondylosis [address] L-spine (11 Jun 2018)-- slight retrolisth esis of L2 on L3. Mild degenerati ve changes of T12-L3, No CS, No NFS completed stephon L3,L4, L5 MBB#1 on 13 Feb 2019 -- reports>80 % pain reductionC ompleted MBB#2 stephon L3,L4,L5 08 Sep 2019-80% relief completed right RFA L3,L4,L5 on 05 Dec 2019---rep orts 80% pain reduction Chronic neck pain 452692 [address] C-spine (11 Jun 2018) [...] [facility] Damir Guardado [id number] Holly Guardado 12/05/2019 [facility] Damir Guardado [id number] Holly Guardado 12/18/2019 [facility] Damir Guardado [id number] Holly Guardado 01/19/2020 [facility] Damir Guardado [id number] Holly Guardado 02/16/2020 [facility] Damir Guardado [id number] Holly Guardado Notes Date Note Type Note [...] Garcia MD [address], [place], [address], [facility] 11/24/2019 00:10:25 12/18/2019 [...] attending counseling 2-3 times a month with [facility]. Her current pain level is 3/10 with medication.MHA, [employer] TRA[employer]ING [employer] Bhavik Garcia MD [address], [place], [address], [facility] 12/22/2019 13:14:26 01/19/2020 [...] concerns at this time. Bhavik Garcia MD [facility], [address], [facility] 01/20/2020 23:50:24 02/16/2020 text/html [facility] HPI PAINReported [facility].Location:bot h head; both Neck; right Shoulder; [...] at a 3/10. RR Bhavik Garcia MD [address] [facility] [address], [place], [address], [place] [facility] 02/18/2020 23:20:45 OBGyn Episode No OBEpisode recorded.
--- OUTSIDE RECORDS SUMMARY | 2024-09-30 09:48 | XMS_ITS | Clinical Summary ---
Author Organization [address] Address [address] [place] [address] Care Team Providers Care Certified Driver Examiner Name Role Phone Saul Ruelas MD Primary Care Provider [phone] Abiodun Red MD Unavailable [phone] Issac Amador MD Unavailable [phone] Allergies No known active allergies Medications [...] seen Assessment & Plan (09/01/2024 12:03 PM PAWN SHOP KEEPER): 44-year-old female with PMHx of HTN, HLD, [...] dosing due to hx GERD. Will contact launch leader for records. Follow up in 2 weeks. Sooner if needed. Seen with Dr. Amador. TOYN (obstructive sleep apnea) 10/05/2020 Assessment & Plan (07/01/2024 10:25 AM PAWN SHOP KEEPER): Patient continue with CPAP at 8 cm water pressure while sleeping. She was intolerable of higher pressures in the past. DME is [employer]. Assessment & Plan (06/28/2023 11:59 AM PAWN SHOP KEEPER): Due to continued symptoms, the patient will continue CPAP at 8 cm water pressure. The patient has an elevated AHI, however she is intolerant of higher pressure. Denied need for supplies. DME [employer] Assessment & Plan (06/27/2022 12:02 PM PAWN SHOP KEEPER): Patient continue to wear CPAP at 8 cm water pressure while sleeping. Her DME is [employer]. The patient did not tolerate an increase in her pressures in the past. Assessment & Plan (06/30/2021 11:05 AM PAWN SHOP KEEPER): Patient continue to wear CPAP at 8 cm water pressure while sleeping. Her DME is [employer]. The patient is already registered her CPAP [...] patient denied need for supplies. DME company [employer]. The patient and I discussed the recall [...] open while sleeping. The DME company is [employer]. The patient is benefitting from CPAP therapy. Other insomnia 10/05/2020 Assessment & Plan (07/01/2024 10:25 AM PAWN SHOP KEEPER): The patient continues with Lunesta 3 mg on most nights. Assessment & Plan (06/28/2023 11:58 AM PAWN SHOP KEEPER): Due to continued symptoms, the patient will continue Lunesta 3 mg nightly. I have refilled the medication and will refill for 1 year Patient is aware that she should wear her CPAP machine if taking the medication. Assessment & Plan (06/27/2022 12:02 PM PAWN SHOP KEEPER): The patient will continue with Lunesta 3 mg p.o. at bedtime to treat insomnia. Assessment & Plan (06/30/2021 11:04 AM PAWN SHOP KEEPER): The patient will continue with Lunesta 3 [...] Department Care Team Description 09/16/2024 Orders Only [facility] [address] [place] [address] Vicenta Early PA 09/08/2024 10:21 AM PAWN SHOP KEEPER - 09/08/2024 11:59 PM PAWN SHOP KEEPER Hospital Encounter [address] [address] Sicca complex; Polyarthralgia Discharge Disposition: Discharge to home or self care 09/08/2024 Results Follow-Up [address] [address] Issac Amador MD 09/01/2024 10:30 AM PAWN SHOP KEEPER Office Visit [address] [address] Vicenta Early PA Sicca complex (Primary Dx); Polyarthralgia 09/01/[address] [address] Vicenta Early PA from Last 3 Months Surgical History Surgery [...] on file Legal Sex Female 9:00 AM PAWN SHOP KEEPER Gender Identity Female 09/06/2024 3:20 PM PAWN SHOP KEEPER Sexual Orientation Not on file Obstetrics History Last Filed Vital Signs Vital Sign Reading Time Taken Comments Blood Pressure 134/76 09/01/2024 10:16 AM PAWN SHOP KEEPER Pulse 106 09/01/2024 10:16 AM PAWN SHOP KEEPER Temperature 36.4 C (97.6 F) 07/01/2024 9:59 AM PAWN SHOP KEEPER Respiratory Rate 18 07/01/2024 9:59 AM PAWN SHOP KEEPER Oxygen Saturation 96% 09/01/2024 10:16 AM PAWN SHOP KEEPER Inhaled Oxygen Concentration - - Weight 127 kg (280 lb) 09/01/2024 10:16 AM PAWN SHOP KEEPER Height 177.8 cm (5' 10 ) 09/01/2024 10:16 AM PAWN SHOP KEEPER Body Mass Index 40.18 09/01/2024 10:16 AM PAWN SHOP KEEPER Plan of Treatment Health Maintenance Due Date [...] Comments SCAN - RADIOLOGY/IMAGING 09/16/2024 4:34 PM PAWN SHOP KEEPER US HAND COMPLETE Schedule Routine, Read Routine (OP Routine) 09/08/2024 11:12 AM PAWN SHOP KEEPER Sicca complex Polyarthralgia ERYTHROCYTE SEDIMENTATION RATE Routine 09/01/2024 11:37 AM PAWN SHOP KEEPER Sicca complex Polyarthralgia CRP (ACUTE PHASE) Routine 09/01/2024 11: 37 AM PAWN SHOP KEEPER Sicca complex Polyarthralgia COMPREHENSIVE METABOLIC PANEL Routine 09/01/2024 11:37 AM PAWN SHOP KEEPER Sicca complex Polyarthralgia CBC WITH AUTO DIFFERENTIAL Routine 09/01/2024 11:37 AM PAWN SHOP KEEPER Sicca complex Polyarthralgia MISCELLANEOUS LAB TEST Routine 09/01/2024 10:09 AM PAWN SHOP KEEPER Sicca complex Polyarthralgia from Last 3 Months Results * SCAN - RADIOLOGY/IMAGING (09/16/2024 4:34 PM PAWN SHOP KEEPER) Anatomical Region Laterality Modality Other Vicenta LANDA Final Result * US Hand Complete (09/08/2024 11:12 AM PAWN SHOP KEEPER) Anatomical Region Laterality Modality Hand N/A Ultrasound Issac Amador MD [facility] US PROCEDURES Final Result * (ABNORMAL) CBC with auto differential (09/01/2024 11:37 AM PAWN SHOP KEEPER) WBC 7.9 3.8 - 10.8 Thousand/u L [...] [facility] Blood 09/01/2024 11:3 7 AM PAWN SHOP KEEPER 09/01/2024 11:37 AM PAWN SHOP KEEPER Issac Amador MD LAB BLOOD ORDERABLES Final Res ult Performing Organization Address City/[facility] Co de Phone Number [facility] [address] [place] [address] * Erythrocyte sedimentation rate (09/01/2024 11:37 AM PAWN SHOP KEEPER) Erythrocyte sedimentation rate 9 < OR = 20 mm/h [facility] Blood 09/01/2024 11:3 7 AM PAWN SHOP KEEPER 09/01/2024 11:37 AM PAWN SHOP KEEPER Issac Amador MD LAB BLOOD ORDERABLES Final Res ult [facility] [address] [place] [address] * CRP (acute phase) (09/01/2024 11:37 AM PAWN SHOP KEEPER) Pathologist [facility] C-RP <3.0 <8.0 mg/L [facility] Blood 09/01/2024 11:3 7 AM PAWN SHOP KEEPER 09/01/2024 11:37 AM PAWN SHOP KEEPER us Issac Amador MD LAB BLOOD ORDERABLES Final Res ult [facility] [address] [place] [address] * Comprehensive metabolic panel (09/01/2024 11:37 AM PAWN SHOP KEEPER) Pathologist [facility] Glucose 71 65 - 99 mg/dL [facility] [...] [facility] Blood 09/01/2024 11:3 7 AM PAWN SHOP KEEPER 09/01/2024 11:37 AM PAWN SHOP KEEPER Issac Amador MD LAB BLOOD ORDERABLES Final Res ult Performing Organization Address City/[facility]/ZIP Co de Phone Number [facility] [address] [address] * AVISE CTD - Miscellaneous Test (09/01/2024 10:09 AM PAWN SHOP KEEPER) Miscellaneous Issac Amador MD LAB BLOOD ORDERABLES Final Res ult Performing Organization Address City/[facility] Co de Phone Number EXTERNAL LAB from Last 3 Months Insurance [facility] [address] [place] [address] [employer] [facility] [address] [place] [address] [facility] Care Teams Certified Driver Examiner Relationship Specialty Start Date End Date Saul Ruelas MD PCP - General Family Medicine 08/25/20 Abiodun Red MD [address] [place] [address] Referring Physician Neurology 11/27/22 Issac Amador MD [facility] [place] [address] Consulting Physician Rheumatology 07/23/24
== END 2024-09-30 09:00 | disposition home or self-care (01) ==
PROVIDERS: Visit Provider Podiatrist Foot & Ankle Surgery
DX: I10 Essential (primary) hypertension (principal); Z01.818 Encounter for other preprocedural examination
CPT/HCPCS: 93005

== ENCOUNTER 2024-09-30 16:42 | Emergency (ER) | payer BC, OTHER, SELFPAY ==
--- NOTE | 2024-09-30 16:51 | ED_ITS ---
HPI - Female Genitourinary General Chief complaint: Urogenital-Female Stated complaint: Possible UTI Time Seen by Provider: 09/30/24 16:52 Source: patient Mode of arrival: ambulatory Limitations: no limitations History of Present Illness HPI Narrative: Holly is a 44-year-old female patient presenting to the clinic today with complaints of a possible urinary tract infection x 2 days. She reports she has burning with urination with a warm sensation, suprapubic pain, and low back pain. Denies any fevers or chills. Has been taking azo for her symptoms. Also reports some associated nausea. She denies any vaginal discharge or odor. No concern for sexually transmitted infections. Patient is concerned as she is scheduled for right foot surgery on . Related Data Home Medications ?Medication ?Instructions ?Recorded ?Confirmed ?Last Taken ?Type aspirin 81 mg tablet,delayed 81 mg PO DAILY 11/21/22 09/22/24 Unknown History release (Adult Aspirin Regimen) atorvastatin 40 mg tablet (Lipitor) 40 mg PO DAILY 11/21/22 09/22/24 Unknown History buprenorphine 8 mg-naloxone 2 mg 1 tablet sublingual TID 11/21/22 09/22/24 Unknown History sublingual tablet buspirone 15 mg tablet 15 mg PO DAILY 11/21/22 09/22/24 Unknown History duloxetine 60 mg capsule,delayed 60 mg PO DAILY 11/21/22 09/22/24 Unknown History release eszopiclone 3 mg tablet (Lunesta) 3 mg PO QHS 11/21/22 09/22/24 Unknown History fexofenadine 180 mg tablet 180 mg PO DAILY 11/21/22 09/22/24 Unknown History (Robyn Allergy) levothyroxine 137 mcg tablet 137 mcg PO DAILY 11/21/22 09/22/24 Unknown History (Synthroid) mometasone 50 mcg/actuation nasal 2 spray intranasal DAILY PRN 11/21/22 09/22/24 Unknown History spray Shortness Of Breath Or Wheezing mv-mn-folic 200 mcg-vit K 15 1 cap PO BID 11/21/22 09/22/24 Unknown History mcg-lutein 5 mg-zeaxanthin 1 mg capsule (PreserVision AREDS 2 Plus Multivit) nebivolol 5 mg tablet (Bystolic) 5 mg PO DAILY 11/21/22 09/22/24 Unknown History omeprazole 20 mg capsule,delayed 20 mg PO DAILY 11/21/22 09/22/24 Unknown History release pilocarpine HCl 5 mg tablet 5 mg PO TID 11/21/22 09/22/24 Unknown History pregabalin 150 mg capsule (Lyrica) 150 mg PO BID 11/21/22 09/22/24 Unknown History sumatriptan succinate 100 mg tablet See Rx Instructions PO .COMPLEX 11/21/22 09/22/24 Unknown History topiramate 50 mg tablet (Topamax) 50 mg PO TID 11/21/22 09/22/24 Unknown History atogepant 60 mg tablet (Qulipta) 60 mg PO DAILY 06/13/24 09/22/24 Unknown History cyclobenzaprine 10 mg tablet 10 mg PO TID 06/13/24 09/22/24 Unknown History erenumab-aooe 70 mg/mL 70 mg subcut DIRECTED 06/13/24 09/22/24 Unknown History subcutaneous auto-injector (Aimovig Autoinjector) hydroxyzine pamoate 50 mg capsule 50 mg PO DIRECTED 06/13/24 09/22/24 Unknown History trazodone 100 mg tablet 100 mg PO DIRECTED PRN insomnia 06/13/24 09/22/24 Unknown History lidocaine 1.8 % topical patch 1 patch topical DAILY 06/26/24 09/22/24 Unknown History omega 3-gni-gkf-fish oil 60 mg-90 1 cap PO DAILY 06/26/24 09/22/24 Unknown History mg-500 mg capsule (Fish Oil) Allergies Allergy/AdvReac Type Severity Reaction Status Date / Time No Known Allergies Allergy Verified 09/30/24 17:09 Review of Systems Review of Systems: Pertinent positives per HPI. Patient denies any fever, chills, rash, headache, visual changes, dizziness, cough, shortness of breath, chest pain, palpitations, vomiting, diarrhea, constipation PMFSH Past Medical History Medical History Radial head fracture, closed Distal radius fracture, right Thompson's neuroma of right foot (~2016) Abdominal hernia (~2011) Previous gastric bypass complicating , antepartum (~2007) Surgical History Surgical History Hx of cholecystectomy (~2009) History of (~2007) Family History Family History Unknown Hypertension Depression Diabetes mellitus Cerebrovascular accident Social History Social History Smoking status: Former smoker Alcohol intake: never Substance use: never Substance use type: does not use Do You Feel Safe in your Home?: Yes Lack of Transportation: No Lack of Food: Never True Current Housing: I Have Housing Concerned About Future Housing: No Difficulty Paying Gas/Electric Bills: No Difficulty Paying for Meds: No Currently Unemployed: No Education: Associate Degree Difficulty w/ Childcare or Family Care: No Living arrangements: with family Occupation/Education: occupation 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 There is no relevant family history pertinent to the patient complaint. Exam Narrative: General: Well-developed, morbidly obese, in no apparent distress. Head: Normocephalic, atraumatic. Cardio: Regular rate and rhythm, s1 and s2 normal, no murmur appreciated. Resp: Clear to auscultation bilaterally, no rhonchi, rales, wheezing or rubs. Abdomen: Soft, pliable, bowel sounds present in all quadrants, suprapubic tender to palpation, no organomegly, no CVAT tenderness. Course Course Emergency Course: Portions of this record may have been created with voice recognition software. Level of Care: Express Care Visit Vital Signs Vital signs: Vital Signs Temperature 36.1 C L 09/30/24 16:57 Pulse Rate 91 09/30/24 16:57 Respiratory Rate 18 09/30/24 16:57 Blood Pressure 123/90 09/30/24 16:57 Pulse Oximetry 99 09/30/24 16:57 Oxygen Delivery Room Air 09/30/24 16:57 Temperature 36.1 C L 09/30/24 16:57 Pulse Rate 91 09/30/24 16:57 Respiratory Rate 18 09/30/24 16:57 Blood Pressure 123/90 09/30/24 16:57 Pulse Oximetry 99 03/18/25 16:57 Oxygen Delivery Room Air 09/30/24 16:57 Vital signs reviewed MDM - Female Genitourinary MDM Narrative Medical decision making narrative: At the time of visit patient is resting comfortably on the exam table. Patient appears to be nontoxic. Labs: Urinalysis is skewed due to azo. Will send urine for culture Plan: We will send urine for culture. I will treat patient for UTI symptoms as she has a surgery scheduled for . Prescription for Bactrim was sent to the pharmacy. Supportive measures were discussed with the patient and they voiced understanding discharge instructions and agrees to treatment plan. Return precautions reviewed Differential Diagnosis Differential diagnosis: Likely urinary tract infection and cystitis Discharge Plan Discharge Clinical Impression: Symptoms of urinary tract infection Patient Disposition: Home, Self-Care Condition: Stable Instructions: Antibiotic Form, Urinary Tract Infection in Women (ED) Additional Instructions: Urinalysis is skewed due to azo. We will send urine for culture. Take Bactrim as prescribed Increase fluids and stay well hydrated Wipe front to back. May use wet wipes. Avoid tub baths If sexually active- pee before and after intercourse. Wear cotton panties Avoid tight clothing up against the genitals Follow up with your PCP in 1 week if symptoms persist. Patient Language: Georgian Prescriptions: New sulfamethoxazole-trimethoprim [Bactrim DS] 800-160 mg tablet 1 tablet PO Q12H 5 Days Qty: 10 0RF No Action cyclobenzaprine 10 mg tablet 10 mg PO TID hydroxyzine pamoate 50 mg capsule 50 mg PO DIRECTED trazodone 100 mg tablet 100 mg PO DIRECTED PRN (Reason: insomnia) Aimovig Autoinjector 70 mg/mL auto-injector 70 mg SUBCUT DIRECTED Qulipta 60 mg tablet 60 mg PO DAILY levothyroxine [Synthroid] 137 mcg tablet 137 mcg PO DAILY omeprazole 20 mg capsule,delayed release(DR/EC) 20 mg PO DAILY mometasone 50 mcg/actuation spray,non-aerosol 2 spray intranasal DAILY PRN (Reason: Shortness Of Breath Or Wheezing) Rx Instructions: administer into each nostril topiramate [Topamax] 50 mg tablet 50 mg PO TID sumatriptan succinate 100 mg tablet See Rx Instructions PO .COMPLEX Rx Instructions: take 1 tab at onset of headache; if no relief, may repeat 1 tab after at least 2 hrs; max = 2 tabs/24 hrs PO nebivolol [Bystolic] 5 mg tablet 5 mg PO DAILY fexofenadine [Robyn Allergy] 180 mg tablet 180 mg PO DAILY atorvastatin [Lipitor] 40 mg tablet 40 mg PO DAILY pregabalin [Lyrica] 150 mg capsule 150 mg PO BID aspirin [Adult Aspirin Regimen] 81 mg tablet,delayed release (DR/EC) 81 mg PO DAILY eszopiclone [Lunesta] 3 mg tablet 3 mg PO QHS buprenorphine-naloxone 8-2 mg tablet, sublingual 1 tablet sublingual TID pilocarpine HCl 5 mg tablet 5 mg PO TID PreserVision AREDS 2 Plus MV 200 mcg-15 mcg- 5 mg-1 mg capsule 1 cap PO BID duloxetine 60 mg capsule,delayed release(DR/EC) 60 mg PO DAILY buspirone 15 mg tablet 15 mg PO DAILY omega 7-gvl-dcz-fish oil [Fish Oil] 60-90-500 mg capsule 1 cap PO DAILY lidocaine 1.8 % adhesive patch,medicated 1 patch topical DAILY Rx Instructions: leave on most painful area for up to 12 hrs meloxicam 15 mg tablet 15 mg PO DAILY Qty: 14 0RF alum-mag hydroxide-simeth [Advanced Antacid-Antigas] 200-200-20 mg/5 mL suspension 10 ml PO QID PRN (Reason: indigestion) Qty: 3000 0RF Rx Instructions: administer between meals and at bedtime ondansetron 4 mg tablet,disintegrating 4 mg PO Q8H PRN (Reason: nausea and vomiting) Qty: 30 0RF Follow-up/Referrals: ARTHUR CITY, [Primary Care Provider] - Time of Disposition: 17:28 Quality NIHSS Nursing Documentation ED NIHSS nursing documentation: reviewed/agree
[2024-09-30 16:57] VITALS: BP 123/90; PULSE 91; RESP 18; TEMP 36.1; O2SAT 99
--- OUTSIDE RECORDS SUMMARY | 2024-09-30 18:00 | XMS_ITS | Encounter Summary ---
Author Organization [facility] Address [address] [place] [address] Care Team Providers Care Precision Millwright Name Role Phone Robert García MD Primary Care Provider + Encounter Details Date Type Department Care Team (Late Contact Info) Description 01/22/[address] [employer] [address] [facility] - [address], [address] [place] [phone] [employer], [facility] Provider prescription Social History Tobacco Use Types [...] on file Legal Sex Female 9:56 AM DIRECTOR OF MARKET INTELLIGENCE Gender Identity Not on file Sexual Orientation Not on file documented as of this encounter Plan of Treatment Upcoming Encounters Date Type Department Care Team (Late Contact Info) Description 12/03/2024 10:00 AM CDT Office Visit [facility] - [address], [address] [place] [phone] Abiodun Red MD [address] [place] [address] documented as of this encounter Visit Diagnoses Not on filedocumented in this encounter Additional Health Concerns Assessment Noted Time PHQ-9 Depression Total Score: 7 06/02/20 22 9:57 AM DIRECTOR OF MARKET INTELLIGENCE documented as of this encounter Care Teams Precision Millwright Relationship Specialty Start Date End Date Robert García MD 3 [facility] [place] [address] [place] [phone] PCP - General 08/17/23 documented as of this encounter
--- OUTSIDE RECORDS SUMMARY | 2024-09-30 18:00 | XMS_ITS | Encounter Summary ---
Author Organization [facility] [place] [facility] Address [address] [place] [address] Phone Care Team Providers Care Senior Copywriter Name Role Phone Saul Ruelas MD Primary Care Provider [phone] Abiodun Red MD Unavailable [phone] Issac Amador MD Unavailable [phone] Encounter Details Date Type Department Care Team (Late st Contact Info) Description 09/01/2024 Telephone [facility] [place] [facility] [address] [place] [phone] Vicenta Early PA [facility] [address] Social History Tobacco Use Types [...] on file Legal Sex Female 9:00 AM PUMP SERVICER Gender Identity Female 09/06/2024 3:20 PM PUMP SERVICER Sexual Orientation Not on file documented as of this encounter Miscellaneous Notes * Telephone Encounter - Chalino Palacios - 09/01/2024 2:01 PM CST Spoke with liset at [facility] [employer] ([phone]) she stated she will fax over the pt records. -RL SERVICER * Telephone Encounter - Vicenta Early PA - 09/01/2024 12:17 PM PUMP SERVICER Can we get records from patient's eye doctor? [place] [facility] [place] Thanks. SERVICER documented in this encounter Plan of Treatment Not on file documented as of this encounter Visit Diagnoses Not on filedocumented in this encounter Care Teams Senior Copywriter Relationship Specialty Start Date End Date Saul Ruelas MD PCP - General Family Medicine 08/25/20 Abiodun Red MD [address] [place] [address] Referring Physician Neurology 11/27/22 Issac Amador MD [address] [place] [address] Consulting Physician Rheumatology 07/23/24 documented as of this encounter
--- OUTSIDE RECORDS SUMMARY | 2024-09-30 18:00 | XMS_ITS | Clinical Summary ---
Author Organization [employer] Care Team Providers Care Disabilities Services Officer Name Role Phone Unavailable Primary Care Provider [...]
--- OUTSIDE RECORDS SUMMARY | 2024-09-30 18:00 | XMS_ITS | Data Portability ---
Author Organization [place] - [facility] [place] [facility] Address [address] [place] [address] Care Team Providers Care Roofing Foreman Name Role Phone [place] Primary Care Provider [phone] Assessment Encounter Date Assessment Date Assessment LastModified [...] tablet 2022 023 [facility], [address] [place] [address], [id number], 06/04/2023 10:27:07 Lipitor 80 mg tablet 2022 023 [place] #[id number], [address] [place], [phone], 06/04/2023 10:27:11 Bystolic 5 mg tablet 2022 023 [facility], [address] [place] [address], [id number], 06/04/2023 10:27:08 Lasix 40 mg tablet 2022 023 [facility], [address] [place] [address], [id number], 06/04/2023 10:27:08 Lasix 20 mg tablet 2022 023 [facility] #[id number], [address] [place], [place], [phone], 02/06/2023 18:37:03 Patient TargetsNo targets recorded. Patient Instructions Encounter Date Encounter Id Patient Instructions Last Modified By Organization Details Last Modified Time 06/04/2023 [id number] Low cholesterol diet advised Low sodium diet advised. [email or web address] Not available 06/04/2023 10:26:59 12/06/2023 [id number] Low cholesterol diet advised Low sodium diet [...] record ed. est [facility] [address], [place], [address], 08/05/2023 14:55:01 12/11/19 24 12/06/2023 elect rocar diogr am No observ ation record ed. [email or web address] Not Available 2023 18:13:40 06/03/20 24 06/03/2024 elect julianne mcmahon am No observ ation record ed. [email or web address] Not Available 2023 18:04:05 Result Notes None recorded. Problems Name Problem SNOMED Code Status Onset Date Resolution Date Notes Provider Name and Address Organization Details Recorded Time Edema 504122657 Active 2022 Cooper Mesto null[place] - [facility] 3 12:39:45 Atypical chest pain 682130311 Active 2022 Cooper Mesto null, [place] - [facility] 3 12:39:54 Dyspnea on exertion 25018536 Active 2022 Cooper Mesto null[place] - [facility] 3 12:40:00 Dyslipidemia 037773533 Active 2023 Cooper M[place] - [facility] 4 19:58:53 Essential hypertension 59084988 Active 2023 Cooper M[place] null, [place] - [facility] 4 19:59:11 History of cerebrovascula r accident 692545119 Active 2023 Cooper Mesto null, [place] - [facility] 4 19:59:27 Problem Notes None recorded. Procedures Surgical History Date Name Laterality Status Provider Name and Address Organization Details Recorded Time operation on stomach completed Kenneth Messally [place] - [facility] 05/25/2023 12:52:55 Imaging Results Imaging Date Name Status LastModified by Organization Details LastModified Time 02/06/2023 electrocardiogram completed Informa tion not available 02/07/2023 11:05:46 03/24/2023 lexiscan cardiolite stress test (PROC) completed Information not available 05/03/2023 14:51:42 07/23/2023 , echocardiogram completed [facility] [address], [place], [address], 08/05/2023 14:55:01 12/06/2023 electrocardiogram completed [email or web address] Informa tion not available 12/18/2023 18:13:40 06/03/2024 [...] Updated DateTime 3 177.8 cm 45.6 kg/m2 471993. 37 g 102 /min 18 /min 93 % 93 % Zen Roche [facility] 3 18:10:41 Date Recorded Body height Heart rate Oxygen saturation Oxygen saturation in Arterial blood by Pulse oximetry Body mass index (BMI) Body weight Systolic blood pressure Diastolic blood pressure Provider Name and Address Organization Details Last Updated DateTime 3 177.8 cm 84 /min 87 % 87 % 42.9 kg/m2 519997. 12 g 139 mm[Hg] 86 mm[Hg] Fay Carrero [facility] 3 09:40:23 Date Recorded Body height Body mass index (BMI) Body weight Heart rate Oxygen saturation Oxygen saturation in Arterial blood by Pulse oximetry Systolic blood pressure Diastolic blood pressure Provider Name and Address Organization Details Last Updated DateTime 4 177.8 cm 41.1 kg/m2 264456. 93 g 76 /min 97 % 97 % 108 mm[Hg] 72 mm[Hg] Kady Lolly [facility] 4 10:18:10 Date Recorded Body height Body mass index (BMI) Body weight Heart rate Oxygen saturation Oxygen saturation in Arterial blood by Pulse oximetry Systolic blood pressure Diastolic blood pressure Provider Name and Address Organization Details Last Updated DateTime 4 177.8 cm 40.3 kg/m2 146310. 46 g 107 /min 95 % 95 % 151 mm[Hg] 97 mm[Hg] Fay Carrero [facility] 4 11:41:36 Social History None recorded. Functional Status None recorded. Mental Status None recorded. Family History Nothing Reported. Medical History No medical history recorded. Gynecological HistoryNo gynecological history recorded. Obstetrics History GPAL:G 0 P 0 0 0 0 Past Encounters Encounter ID Performer Location Encounter Start Date Encounter Closed Date Diagnosis/Indication Diagnosis SNOMED-CT Code Diagnosis ICD10 Code Diagnosis Note [id number] Sixto Feldman MD [facility] [address] [place] [address] 02/06/2023 17:16:06 02/06/2023 18:36:32 Edema 266780286 R60.9 will start lasix 20 mg dailywe might consider jardiance in the future Atypical chest pain 1025 30248 R07.89 Treadmill Myoview Stress test, has high Interior Risk score. Has Known CAD, or CAD risk equivalent . To look for any ischemia. Dyspnea on exertion 6084 5006 R06.09 will do echo to the see the structure of the heart [id number] [facility] [place] [address] 06/04/2023 09:27:03 06/04/2023 10:31:41 Edema 045560173 R60.9 continue lasix 40 mg dailywe might consider jardiance in the future Dyspnea on exertion 6084 5006 R06.09 will do echo to the see the structure of the heart Atypical chest pain 1025 71161 R07.89 negative stress test 3contin ue with monitoring continue with baby aspirin Dyslipidemia 903415473 E 78.5 *Last LDL was 107 done on 03/29/23.P t takes lipitor 80 mg daily.will start her on zetia 10 mg dailyTG Is 223 done 03/2023 add fish oil BID daily Essential hypertension 00629136 I10 BP mildly elevated today, she will bring number with her next timecontin ue with bystolic 5 mg daily History of cerebrovascular accident 236407807 Z86.73 continue with aspirin [id number] [facility] [place] [address] 12/06/2023 10:00:34 12/06/2023 10:41:39 Edema 862774166 R60.9 continue lasix 40 mg daily Dyslipidemia 710685346 E 78.5 *Last LDL was 107 done on 03/29/23.P t takes lipitor 80 mg daily.cont inue with zetia 10 mg dailyTG Is 223 done 03/2023 continue fish oil BID dailyrepea t lipid panel Essential hypertension 88511689 I10 BP is well controlled continue with bystolic 5 mg daily History of cerebrovascular accident 406099936 Z86.73 continue with aspirin [id number] Sixto Feldman MD [place] [facility] [place] [address] 06/03/2024 11:18:39 06/03/2024 12:28:23 Edema 771744405 R60.9 continue lasix 40 mg daily Dyslipidemia 067570001 E 78.5 *Last LDL was 107 done on 03/29/23.P t takes lipitor 80 mg daily.cont inue with zetia 10 mg dailyTG Is 223 done 03/2023 continue fish oil BID dailyrepea t lipid panel Essential hypertension 41065277 I10 BP is well controlled continue with bystolic 5 mg daily History of cerebrovascular accident 828742525 Z86.73 continue with aspirin Health Concerns Section Related Observation LastModified by Organization Detai ls LastModified Time None Recorded Concern Status LastModified by Organization Details LastModified Time None Recorded Advance Directives Directive None Recorded Payers Encounter Date Sequence Insurance Name Policy Number Policy Wilks Covered Member ID Wilks Member ID Guarantor Name 02/06/2023 2 [employer] () Holly Debby [id number] Holly RandallDebby 06/04/2023 2 [employer] () Holly Debby [id number] Holly RandallDebby 06/04/2023 1 [place] [id number] Damir S Debby [id number] Holly RandallDebby 12/06/2023 2 [employer] [place] () Holly Debby [id number] Holly Debby 12/06/2023 1 [place] [id number] Damir S Debby [id number] Holly Debby 06/03/2024 2 [employer] [place] () Holly Debby [id number] Holly RandallDebby 06/03/2024 1 [place] [id number] Damir S Debby [id number] Holly Black Notes Date Note Type Note [...] .Pt takes. Sixto Feldman MD [address] [place], [address], [facility] 02/06/2023 18:37:01 06/04/2023 text/html [...] 0.70 BUN 11 GL 93 CA 9.7,CK Total-159,JTAB0E-0.3,L IPID-CHOL 187 HDL 42 LDL 107 TRIG [...] 0.70 BUN 11 GL 93 CA 9.7,CK Total-159,FQBU1W-7.3,L IPID-CHOL 187 HDL 42 LDL 107 TRIG 223 *Had Adequate Stress with Lexiscan on 03/24/23 with Normal LV systolic function. LVEF: 60%. She occasional with chest pain and dyspnea on exertion. SEAN hong, [place] - [facility] 12/06/2023 10:39:03 06/03/2024 text/html [...] systolic function. LVEF: 60%. Sixto Feldman MD [address] [place], [address], [facility] - [facility] 06/03/2024 12:24:17 OBGyn Episode No OBEpisode recorded.
--- OUTSIDE RECORDS SUMMARY | 2024-09-30 18:00 | XMS_ITS | Encounter Summary ---
Author Organization [facility] Address [address] [place] [address] Phone Care Team Providers Care Bookmobile Clerk Name Role Phone Saul Ruelas MD Primary Care Provider [phone] Abiodun Red MD Unavailable [phone] Issac Amador MD Unavailable [phone] Encounter Details Date Type Department Care Team (Late st Contact Info) Description 09/08/2024 Results Follow-Up [facility] [address] [place] [phone] Issac Amador MD [address] [place] [address] Social History Tobacco Use Types Packs/Day [...] on file Legal Sex Female 9:00 AM LIBRARY ACQUISITIONS TECHNICIAN Gender Identity Female 09/06/2024 3:20 PM LIBRARY ACQUISITIONS TECHNICIAN Sexual Orientation Not on file documented as of this encounter Plan of Treatment Not on file documented as of this encounter Visit Diagnoses Not on filedocumented in this encounter Care Teams Bookmobile Clerk Relationship Specialty Start Date End Date Saul Ruelas MD PCP - General Family Medicine 08/25/20 Abiodun Red MD [address] [place] [address] Referring Physician Neurology 11/27/22 Issac Amador MD [address] [place] [address] Consulting Physician Rheumatology 07/23/24 documented as of this encounter
--- OUTSIDE RECORDS SUMMARY | 2024-09-30 18:00 | XMS_ITS | Clinical Summary ---
Author Organization [address] Address [address] [place] [address] Care Team Providers Care Plant Facilities Technician Name Role Phone Saul Ruelas MD Primary Care Provider [phone] Abiodun Red MD Unavailable [phone] Issac Amador MD Unavailable [phone] Allergies No known active allergies Medications [...] seen Assessment & Plan (09/01/2024 12:03 PM MERCHANDISE COORDINATOR): 44-year-old female with PMHx of HTN, HLD, [...] dosing due to hx GERD. Will contact web applications administrator for records. Follow up in 2 weeks. Sooner if needed. Seen with Dr. Amador. TONY (obstructive sleep apnea) 10/05/2020 Assessment & Plan (07/01/2024 10:25 AM MERCHANDISE COORDINATOR): Patient continue with CPAP at 8 cm water pressure while sleeping. She was intolerable of higher pressures in the past. DME is adapt. Assessment & Plan (06/28/2023 11:59 AM MERCHANDISE COORDINATOR): Due to continued symptoms, the patient will continue CPAP at 8 cm water pressure. The patient has an elevated AHI, however she is intolerant of higher pressure. Denied need for supplies. DME adapt Assessment & Plan (06/27/2022 12:02 PM MERCHANDISE COORDINATOR): Patient continue to wear CPAP at 8 cm water pressure while sleeping. Her DME is adapt. The patient did not tolerate an increase in her pressures in the past. Assessment & Plan (06/30/2021 11:05 AM MERCHANDISE COORDINATOR): Patient continue to wear CPAP at 8 cm water pressure while sleeping. Her DME is [employer]. The patient is already registered her CPAP [...] patient denied need for supplies. DME company [employer]. The patient and I discussed the recall [...] open while sleeping. The DME company is [employer]. The patient is benefitting from CPAP therapy. Other insomnia 10/05/2020 Assessment & Plan (07/01/2024 10:25 AM MERCHANDISE COORDINATOR): The patient continues with Lunesta 3 mg on most nights. Assessment & Plan (06/28/2023 11:58 AM MERCHANDISE COORDINATOR): Due to continued symptoms, the patient will continue Lunesta 3 mg nightly. I have refilled the medication and will refill for 1 year Patient is aware that she should wear her CPAP machine if taking the medication. Assessment & Plan (06/27/2022 12:02 PM MERCHANDISE COORDINATOR): The patient will continue with Lunesta 3 mg p.o. at bedtime to treat insomnia. Assessment & Plan (06/30/2021 11:04 AM MERCHANDISE COORDINATOR): The patient will continue with Lunesta 3 [...] Department Care Team Description 09/16/2024 Orders Only [facility] [address] [place] [phone] Vicenta Early PA 09/08/2024 10:21 AM MERCHANDISE COORDINATOR - 09/08/2024 11:59 PM MERCHANDISE COORDINATOR Hospital Encounter [address] [address] Sicca complex; Polyarthralgia Discharge Disposition: Discharge to home or self care 09/08/2024 Results Follow-Up [address] [phone] Issac Amador MD 09/01/2024 10:30 AM MERCHANDISE COORDINATOR Office Visit [address] [phone] Vicenta Early PA Sicca complex (Primary Dx); Polyarthralgia 09/01/[address] [address] Vicenta Early PA from Last 3 Months [...] on file Legal Sex Female 9:00 AM MERCHANDISE COORDINATOR Gender Identity Female 09/06/2024 3:20 PM MERCHANDISE COORDINATOR Sexual Orientation Not on file Obstetrics History Last Filed Vital Signs Vital Sign Reading Time Taken Comments Blood Pressure 134/76 09/01/2024 10:16 AM MERCHANDISE COORDINATOR Pulse 106 09/01/2024 10:16 AM MERCHANDISE COORDINATOR Temperature 36.4 C (97.6 F) 07/01/2024 9:59 AM MERCHANDISE COORDINATOR Respiratory Rate 18 07/01/2024 9:59 AM MERCHANDISE COORDINATOR Oxygen Saturation 96% 09/01/2024 10:16 AM MERCHANDISE COORDINATOR Inhaled Oxygen Concentration - - Weight 127 kg (280 lb) 09/01/2024 10:16 AM MERCHANDISE COORDINATOR Height 177.8 cm (5' 10 ) 09/01/2024 10:16 AM MERCHANDISE COORDINATOR Body Mass Index 40.18 09/01/2024 10:16 AM MERCHANDISE COORDINATOR Plan of Treatment Health Maintenance Due Date [...] Comments SCAN - RADIOLOGY/IMAGING 09/16/2024 4:34 PM MERCHANDISE COORDINATOR US HAND COMPLETE Schedule Routine, Read Routine (OP Routine) 09/08/2024 11:12 AM MERCHANDISE COORDINATOR Sicca complex Polyarthralgia ERYTHROCYTE SEDIMENTATION RATE Routine 09/01/2024 11:37 AM MERCHANDISE COORDINATOR Sicca complex Polyarthralgia CRP (ACUTE PHASE) Routine 09/01/2024 11: 37 AM MERCHANDISE COORDINATOR Sicca complex Polyarthralgia COMPREHENSIVE METABOLIC PANEL Routine 09/01/2024 11:37 AM MERCHANDISE COORDINATOR Sicca complex Polyarthralgia CBC WITH AUTO DIFFERENTIAL Routine 09/01/2024 11:37 AM MERCHANDISE COORDINATOR Sicca complex Polyarthralgia MISCELLANEOUS LAB TEST Routine 09/01/2024 10:09 AM MERCHANDISE COORDINATOR Sicca complex Polyarthralgia from Last 3 Months Results * SCAN - RADIOLOGY/IMAGING (09/16/2024 4:34 PM MERCHANDISE COORDINATOR) Anatomical Region Laterality Modality Other Vicenta LANDA Final Result * US Hand Complete (09/08/2024 11:12 AM MERCHANDISE COORDINATOR) Anatomical Region Laterality Modality Hand N/A Ultrasound Issac Amador MD [facility] US PROCEDURES Final Result * (ABNORMAL) CBC with auto differential (09/01/2024 11:37 AM MERCHANDISE COORDINATOR) WBC 7.9 3.8 - 10.8 Thousand/u L [...] [facility] Blood 09/01/2024 11:3 7 AM MERCHANDISE COORDINATOR 09/01/2024 11:37 AM MERCHANDISE COORDINATOR Issac Amador MD LAB BLOOD ORDERABLES Final Res ult Performing Organization Address City/[facility] Co de Phone Number QUEST [facility] [address] [place] [address] * Erythrocyte sedimentation rate (09/01/2024 11:37 AM MERCHANDISE COORDINATOR) Erythrocyte sedimentation rate 9 < OR = 20 mm/h [facility] Blood 09/01/2024 11:3 7 AM MERCHANDISE COORDINATOR 09/01/2024 11:37 AM MERCHANDISE COORDINATOR Issac Amador MD LAB BLOOD ORDERABLES Final Res ult [facility] [address] [place] [address] * CRP (acute phase) (09/01/2024 11:37 AM MERCHANDISE COORDINATOR) Pathologist [facility] C-RP <3.0 <8.0 mg/L [facility] Blood 09/01/2024 11:3 7 AM MERCHANDISE COORDINATOR 09/01/2024 11:37 AM MERCHANDISE COORDINATOR us Issac Amador MD LAB BLOOD ORDERABLES Final Res ult [facility] [address] [place] [address] * Comprehensive metabolic panel (09/01/2024 11:37 AM MERCHANDISE COORDINATOR) Pathologist [facility] Glucose 71 65 - 99 [...] [facility] Blood 09/01/2024 11:3 7 AM MERCHANDISE COORDINATOR 09/01/2024 11:37 AM MERCHANDISE COORDINATOR Issac Amador MD LAB BLOOD ORDERABLES Final Res ult Performing Organization Address City/[facility]/ZIP Co de Phone Number [facility]ST [facility] [address] [address] * AVISE CTD - Miscellaneous Test (09/01/2024 10:09 AM MERCHANDISE COORDINATOR) Miscellaneous Issac Amador MD LAB BLOOD ORDERABLES Final Res ult Performing Organization Address City/[facility] Co de Phone Number EXTERNAL LAB from Last [address] [facility] [address] [place] [address] [employer] [facility] [address] [place] [address] [employer] [facility] Care Teams Plant Facilities Technician Relationship Specialty Start Date End Date Saul Ruelas MD PCP - General Family Medicine 08/25/20 Abiodun Red MD [address] [place] [address] Referring Physician Neurology 11/27/22 Issac Amador MD [facility] [place] [address] Consulting Physician Rheumatology 07/23/24
--- OUTSIDE RECORDS SUMMARY | 2024-09-30 18:01 | XMS_ITS | Encounter Summary ---
Author Organization [facility] Address [address] [place] [address] Care Team Providers Care Career Counselor Name Role Phone Unavailable Primary Care Provider Unavailabl e Encounter Details Date Type Department Care Team (Late st Contact Info) Description 03/02/2022 Lab Requisition [facility] [address] [facility], [place] [address] Niles George MD [address] [place] [address] Social History Tobacco Use Types [...] AM CDT) Case Report Dermatopathology Report Case: [id number] Authorizing Provider: Niles George MD Collected: 03/02/2022 12:00 AM Ordering Location: [facility] Lab Received: 03/02/2022 05:15 PM [...] characteristic determined by the Dermatopathology Laboratory at [facility], directed by Dr. Miguel Viramontes. These tests need not be, and therefore are not, approved by the [place] Food and Drug Administration. The tests are used for clinical purposes. Billing Codes Specimen Charges Stain Charges 614[address] 1 2 6:16 PM CDT DERMATOPATHOLOGY LABORATORY Embedded Images 2 6:16 PM CDT DERMATOPATHOLOGY LABORATORY Pathology/Cytolog y TISSUE SPECIMEN FROM SKIN / Unknown 03/02/2022 03/02/2022 5:15 PM CDT Niles George MD LAB - PATHOLOGY/CYTO LOGY ORDERABLES DERMATOPATHOLOGY LABORATORY [facility] - Department of Dermatology [address], [address] [phone] documented in this encounter Visit Diagnoses Not on filedocumented in this encounter
--- OUTSIDE RECORDS SUMMARY | 2024-09-30 18:01 | XMS_ITS | Clinical Summary ---
Author Organization [facility] Address [address] [place] [address] Care Team Providers Care Drawer Maker Name Role Phone Unavailable Primary Care Provider Unavailabl e Source Comments [facility],non-owned Affiliates and Associated Physician Practices is amultiple site organization consisting of ambulatory clinics and hospital sitesin [place], [place], [place] and [place]. This disclosure is being madepursuant to the Care Everywhere program and may not contain all information available regarding this patient. Last updated 18.[facility] [employer] Social History Tobacco Use Types Packs/Day Years [...]
--- OUTSIDE RECORDS SUMMARY | 2024-09-30 18:01 | XMS_ITS | Continuity of Care Document ---
Author Organization [facility] Address [address] [place] [address] Phone Care Team Providers Care Gizzard Peeler Name Role Phone Miguel Harrison PT Unavailable [...] Diagnoses Date Provider Providers Copied on Encounter [facility], [place], [place], [id number], tel:[phone] [place] No Information Hunter Rivera. . [facility], [place], [place], [id number], tel:[phone] [place] No Information Hunter Contreras . [facility], [address], [place], [place], [id number], tel:[phone] [place] No Information Hunter Contreras . [facility], [address], [place], [place], [id number], tel:[phone] [place] No Information Hunter Contreras . [facility], [address], [place], [place], [id number], [place] tel:[phone] [place] No Information Hunter Contreras . [facility], [address] [place] [address], [id number], tel:[phone] [place] No Information Hunter Sanabria Family History Family Member Type Diagnosis Age At Onset No Information Payers Payer name Insurance type Covered green party ID Authoriza tion(s) No Information Social [...]
--- OUTSIDE RECORDS SUMMARY | 2024-09-30 18:01 | XMS_ITS | Referral Summary ---
Author Organization [address] Address [address] [address] Care Team Providers Care Door Closer Name Role Phone Saul Ruelas MD Primary Care Provider [phone] Abiodun Red MD Unavailable [phone] Issac Amador MD Unavailable [phone] Encounters Date Type Department Care Team Description 09/16/2024 Orders Only [facility] [address] [place] [phone] Vicenta Early PA 09/08/2024 Results Follow-Up [facility] [address] [place] [phone] Issac Amador MD 09/08/2024 10:21 AM OIL PIPE INSPECTOR HELPER - 09/08/2024 11:59 PM OIL PIPE INSPECTOR HELPER Hospital Encounter [address] [address] Sicca complex; Polyarthralgia Discharge Disposition: Discharge to home or self care 09/01/[address] [address] Vicenta Early PA 09/01/2024 10:30 AM OIL PIPE INSPECTOR HELPER Office Visit [facility] [address] [place] [phone] Vicenta Early PA Sicca complex (Primary Dx); [...] seen Assessment & Plan (09/01/2024 12:03 PM OIL PIPE INSPECTOR HELPER): 44-year-old female with PMHx of HTN, HLD, [...] dosing due to hx GERD. Will contact clerical stock inspector for records. Follow up in 2 weeks. Sooner if needed. Seen with Dr. Amador. TONY (obstructive sleep apnea) 10/05/2020 Assessment & Plan (07/01/2024 10:25 AM OIL PIPE INSPECTOR HELPER): Patient continue with CPAP at 8 cm water pressure while sleeping. She was intolerable of higher pressures in the past. DME is adapt. Assessment & Plan (06/28/2023 11:59 AM OIL PIPE INSPECTOR HELPER): Due to continued symptoms, the patient will continue CPAP at 8 cm water pressure. The patient has an elevated AHI, however she is intolerant of higher pressure. Denied need for supplies. DME adapt Assessment & Plan (06/27/2022 12:02 PM OIL PIPE INSPECTOR HELPER): Patient continue to wear CPAP at 8 cm water pressure while sleeping. Her DME is adapt. The patient did not tolerate an increase in her pressures in the past. Assessment & Plan (06/30/2021 11:05 AM OIL PIPE INSPECTOR HELPER): Patient continue to wear CPAP at 8 [...] her mouth coming open while sleeping. The [employer] company is [employer]. The patient is benefitting from CPAP therapy. Other insomnia 10/05/2020 Assessment & Plan (07/01/2024 10:25 AM OIL PIPE INSPECTOR HELPER): The patient continues with Lunesta 3 mg on most nights. Assessment & Plan (06/28/2023 11:58 AM OIL PIPE INSPECTOR HELPER): Due to continued symptoms, the patient will continue Lunesta 3 mg nightly. I have refilled the medication and will refill for 1 year Patient is aware that she should wear her CPAP machine if taking the medication. Assessment & Plan (06/27/2022 12:02 PM OIL PIPE INSPECTOR HELPER): The patient will continue with Lunesta 3 mg p.o. at bedtime to treat insomnia. Assessment & Plan (06/30/2021 11:04 AM OIL PIPE INSPECTOR HELPER): The patient will continue with Lunesta 3 [...] on file Legal Sex Female 9:00 AM OIL PIPE INSPECTOR HELPER Gender Identity Female 09/06/2024 3:20 PM OIL PIPE INSPECTOR HELPER Sexual Orientation Not on file Last Filed Vital Signs Vital Sign Reading Time Taken Comments Blood Pressure 134/76 09/01/2024 10:16 AM OIL PIPE INSPECTOR HELPER Pulse 106 09/01/2024 10:16 AM OIL PIPE INSPECTOR HELPER Temperature 36.4 C (97.6 F) 07/01/2024 9:59 AM OIL PIPE INSPECTOR HELPER Respiratory Rate 18 07/01/2024 9:59 AM OIL PIPE INSPECTOR HELPER Oxygen Saturation 96% 09/01/2024 10:16 AM OIL PIPE INSPECTOR HELPER Inhaled Oxygen Concentration - - Weight 127 kg (280 lb) 09/01/2024 10:16 AM OIL PIPE INSPECTOR HELPER Height 177.8 cm (5' 10 ) 09/01/2024 10:16 AM OIL PIPE INSPECTOR HELPER Body Mass Index 40.18 09/01/2024 10:16 AM OIL PIPE INSPECTOR HELPER Plan of Treatment Not on file Procedures Procedure Name Priority Date/Time Associated Diagnosis Comments SCAN - RADIOLOGY/IMAGING 09/16/2024 4:34 PM OIL PIPE INSPECTOR HELPER US HAND COMPLETE Schedule Routine, Read Routine (OP Routine) 09/08/2024 11:12 AM OIL PIPE INSPECTOR HELPER Sicca complex Polyarthralgia ERYTHROCYTE SEDIMENTATION RATE Routine 09/01/2024 11:37 AM OIL PIPE INSPECTOR HELPER Sicca complex Polyarthralgia CRP (ACUTE PHASE) Routine 09/01/2024 11: 37 AM OIL PIPE INSPECTOR HELPER Sicca complex Polyarthralgia COMPREHENSIVE METABOLIC PANEL Routine 09/01/2024 11:37 AM OIL PIPE INSPECTOR HELPER Sicca complex Polyarthralgia CBC WITH AUTO DIFFERENTIAL Routine 09/01/2024 11:37 AM OIL PIPE INSPECTOR HELPER Sicca complex Polyarthralgia MISCELLANEOUS LAB TEST Routine 09/01/2024 10:09 AM OIL PIPE INSPECTOR HELPER Sicca complex Polyarthralgia from Last 3 Months Results * SCAN - RADIOLOGY/IMAGING (09/16/2024 4:34 PM OIL PIPE INSPECTOR HELPER) Anatomical Region Laterality Modality Other us Vicenta LANDA Final Result * US Hand Complete (09/08/2024 11:12 AM OIL PIPE INSPECTOR HELPER) Anatomical Region Laterality Modality Hand N/A Ultrasound Issac Amador MD [facility] US PROCEDURES Final Result * (ABNORMAL) CBC with auto differential (09/01/2024 11:37 AM OIL PIPE INSPECTOR HELPER) WBC 7.9 3.8 - 10.8 Thousand/u L [...] [facility] Blood 09/01/2024 11:3 7 AM OIL PIPE INSPECTOR HELPER 09/01/2024 11:37 AM OIL PIPE INSPECTOR HELPER us Issac Amador MD LAB BLOOD ORDERABLES Final Res ult Performing Organization Address [facility] de Phone Number [facility] [address] [place] [address] * Erythrocyte sedimentation rate (09/01/2024 11:37 AM OIL PIPE INSPECTOR HELPER) Erythrocyte sedimentation rate 9 < OR = 20 mm/h [facility] Blood 09/01/2024 11:3 7 AM OIL PIPE INSPECTOR HELPER 09/01/2024 11:37 AM OIL PIPE INSPECTOR HELPER us Issac Amador MD LAB BLOOD ORDERABLES Final Res ult Performing Organization Address [facility] Phone Number [facility] [address] [place] [address] * CRP (acute phase) (09/01/2024 11:37 AM OIL PIPE INSPECTOR HELPER) C-RP <3.0 <8.0 mg/L [facility] Blood 09/01/2024 11:3 7 AM OIL PIPE INSPECTOR HELPER 09/01/2024 11:37 AM OIL PIPE INSPECTOR HELPER us Issac Amador MD LAB BLOOD ORDERABLES Final Res ult Performing Organization Address [facility] Phone Number [facility] [address] [place] [address] * Comprehensive metabolic panel (09/01/2024 11:37 AM OIL PIPE INSPECTOR HELPER) Glucose 71 65 - 99 mg/dL [facility] [...] [facility] Blood 09/01/2024 11:3 7 AM OIL PIPE INSPECTOR HELPER 09/01/2024 11:37 AM OIL PIPE INSPECTOR HELPER Issac Amador MD LAB BLOOD ORDERABLES Final Res ult Performing Organization Address [facility]/ZIP Co de Phone Number [facility] [address] [place] [address] * AVISE CTD - Miscellaneous Test (09/01/2024 10:09 AM OIL PIPE INSPECTOR HELPER) Miscellaneous Issac Amador MD LAB BLOOD ORDERABLES Final Res ult EXTERNAL LAB from Last 3 Months Insurance [address] [place] [phone] [facility] [address] [place] [phone] [employer] [facility] [address] [place] [address] BLUE ACCESS CHOICE NE [facility] [address] [place] [address] Care Teams Door Closer Relationship Specialty Start Date End Date Saul Ruelas MD PCP - General Family Medicine 08/25/20 Abiodun Red MD [address] [place] [address] Referring Physician Neurology 11/27/22 Issac Amador MD [address] [place] [address] Consulting Physician Rheumatology 07/23/24
--- OUTSIDE RECORDS SUMMARY | 2024-09-30 18:01 | XMS_ITS | Clinical Summary ---
Author Organization [facility] Address [address] [place] [address] Care Team Providers Care Professor Of Fine Art Name Role Phone Robert García MD Primary [...] Department Care Team Description 08/27/2024 11:00 AM ACCOUNTS RECEIVABLE SUPERVISOR Office Visit [facility] - [address], [address] [place] [phone] Abiodun Red MD Botox (botox 155 migraines/) 08/27/2024 Scan [facility] Scanned, [facility] 08/27/2024 Travel 08/18/2024 Telephone [facility] Neurology Speciality [address] [address] Abiodun Red MD Appointment Request 08/07/2024 Scan [facility] Scanned, [facility] 07/24/2024 Telephone [facility] Neurology Speciality [address] [address] Abiodun Red MD Orders 07/15/2024 Telephone [facility] - [address], [address] [place] [address] Abiodun Red MD Prior Authorization ([employer]) from [...] on file Legal Sex Female 9:56 AM ACCOUNTS RECEIVABLE SUPERVISOR Gender Identity Not on file Sexual Orientation Not on file Last Filed Vital Signs Vital Sign Reading Time Taken Comments Blood Pressure 123/75 08/27/2024 11:15 AM ACCOUNTS RECEIVABLE SUPERVISOR Pulse 90 08/27/2024 11:15 AM ACCOUNTS RECEIVABLE SUPERVISOR Temperature 36.2 C (97.2 F) 06/04/2024 9:49 AM ACCOUNTS RECEIVABLE SUPERVISOR Respiratory Rate 16 10/11/2022 1:02 PM CDT Oxygen Saturation 97% 08/27/2024 11:15 AM ACCOUNTS RECEIVABLE SUPERVISOR Inhaled Oxygen Concentration - - Weight 131.1 kg (289 lb) 08/27/2024 11:15 AM ACCOUNTS RECEIVABLE SUPERVISOR Height 177.8 cm (5' 10 ) 06/04/2024 9:49 AM ACCOUNTS RECEIVABLE SUPERVISOR Body Mass Index 41.47 06/04/2024 9:49 AM ACCOUNTS RECEIVABLE SUPERVISOR Plan of Treatment Upcoming Encounters Date Type Department Care Team (Late st Contact Info) Description 12/03/2024 10:00 AM CDT Office Visit [facility] - [address], [address] [place] [address] Abiodun Red MD [address] [place] [address] Health Maintenance Due Date Last Done Comments [...] Influenza Adult (#1) 2024 06/04/2020 PHQ-2 (Physician [place]) Completed 08/27/2024 HPV Vaccines Aged Out No [...] patient's age to complete this topic Insurance [address] [place] [address] [facility] Care Teams Professor Of Fine Art Relationship Specialty Start Date End Date Robert García MD [address] [phone] PCP - General 08/17/23
--- OUTSIDE RECORDS SUMMARY | 2024-09-30 18:01 | XMS_ITS | Continuity of Care Document ---
Author Organization [facility] Address [address] [place] [address] Phone Care Team Providers Care Director Of Casework Services Name Role Phone Miguel Harrison PT [...] Diagnoses Date Provider Providers Copied on Encounter [facility], [place], [place], [id number], tel:[phone] [place] No Information Hunter Rivera. . [facility], [place], [place], [id number], tel:[phone] [place] No Information Hunter Contreras . [facility], [address], [place], [place], [id number], tel:[phone] [place] No Information Hunter Contreras . [facility], [address], [place], [place], [id number], tel:[phone] [place] No Information Hunter Contreras . [facility], [address], [place], [place], [id number], [place] tel:[phone] [place] No Information Hunter Contreras . [facility], [address] [place] [address], [id number], tel:[phone] [place] No Information Hunter Sanabria Family [...]
--- OUTSIDE RECORDS SUMMARY | 2024-09-30 18:01 | XMS_ITS | Encounter Summary ---
Author Organization [facility] Address [address] [place] [id number] Care Team Providers Care Butcher All Round Name Role Phone Saul Ruelas MD Primary Care Provider [phone] Robert García MD Primary Care Provider + Encounter Details Date Type Department Care Team (Late st Contact Info) Description 10/12/2020 Prep for Procedure [facility] [place] [phone] Sujey Yap, NIA [address] [place] [phone] Social History Tobacco Use Types Packs/Day Years [...] on file Legal Sex Female 9:56 AM [employer]OPER HELPER Gender Identity Not on file Sexual Orientation [...] Description 12/03/2024 10:00 AM CDT Office Visit [facility] - [facility] [address] [facility], [address] [place] [phone] Abiodun Red MD [address] [facility] [place] [address] documented as of this encounter Visit Diagnoses Not on filedocumented in this encounter Care Teams Butcher All Round Relationship Specialty Start Date End Date Saul Ruelas MD [address] [facility] [address] [place] [phone] PCP - General FAMILY PRACTICE 10/12/20 08/16/23 Robert García MD 3 [facility] [address] [place] [phone] PCP - General 08/17/23 documented as of this encounter
--- OUTSIDE RECORDS SUMMARY | 2024-09-30 18:01 | XMS_ITS | Continuity of Care Document ---
Author Name [facility] Organization [facility] Care Team Providers Care Occupational Therapy Department Chair Name Role Phone [facility] Unavailable Unavailable Problems Combined list of problems from 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 It does not include entries that were removed or entered in error. Problem Status Onset Date Problem Type Date of Resolution Comments Source Backache Active 2024 Diagnosis 6012M-Sy-Z-37 5Th Juan Mgr[facility]-Abhay Obstructive sleep apnea syndrome5 Active 2020 Condition Outside Source Comment: Last Assessment & Plan: Patient continue to wear CPAP at 8 cm water pressure while sleeping. Her DME is adapt . The patient did not tolerate an increase in her pressures in the past. 7175G-Dy-D-37 5Th Med[facility]Abhay Adjustment disorder with mixed emotional features Active 2018 Condition 1050P-Uc-Y-37 5Th [facility]hay Degeneration of intervertebral disc Active 2018 Condition 3903I-Wg-E-37 5Th Med[facility]-Abhay Elevated blood pressure1 Active 2018 Condition Outside Source Comment: Overview: RTC FOR 3 DAY BP CHECK WHEN WELL RTC FOR 3 DAY BP CHECK WHEN WELL 3012Q-Um-Y-37 5Th David Gastroesophageal reflux disease2 Active 2018 Condition Outside Source Comment: Overview: ESOPHAGOGASTRODUODENO SCOPY REPORT DATE OF THE PROCEDURE: 20 August 2007 INDICATION: This is a 27 YO WF with long history of GERD well controlled with Nexium and Zantac. PREOPERATION DIAGNOSIS: GERD POSTOPERATION DIAGNOSIS: Normal EGD PROCEDURE PERFORMED: EGD INSTRUMENT USED: Olympus GIF 160 MEDICATIONS USED: As per Anesthesia DESCRIPTION OF THE PROCEDURE: After explaining the procedure, risks, benefits, and alternatives, an informed consent was obtained. Patient was assessed and deemed appropriate for the procedure. Patient was monitored throughout the procedure using the standard sofia col. Patient was placed on left lateral decubitus position. The scope was advanced from oral pharynx to second portion of the duodenum. The body of the esophagus was grossly normal with irregular squamous-columnar junction at 38 cm from incisors. The gastric mucosa throughout to include retroflex view of cardia was normal. The duodenal bulb and the second portion of duodenum were normal. IMPRESSION: Normal EGD RECOMMENDATIONS: 1. Weight loss 2. Consider Sommer fundoplication 3. Continue PPI 7555O-Ac-D-37 5Th Medgr[facility]-Abhay Lumbar radiculopathy Active 2018 Condition 4230B-Fs-R-37 [facility] Medgrp-Abhay Migraine Active 2018 Condition 8655U-Gl-J-37 5Th Medgr[facility]-Abhay Muscle weakness of limb Active 2018 Condition 7001K-Rj-I-37 [facility] Medgrp-Abhay Central sleep apnea syndrome Active 2018 Condition 9791N-Do-R-37 [facility] Medgrp-Abhay Insomnia Active 2018 Condition 5216B-By-Z-37 [facility] Medgrp-Abhay Posttraumatic stress disorder Active 2018 Condition 9899B-Jh-N-37 [facility] Medgrp-Abhay Generalized anxiety disorder Active 2018 Condition 8460N-Zr-K-37 [facility] Medgrp-Abhay Panic attack Active 2018 Condition 2388C-Ys-H-37 [facility] Medgrp-Abhay Lumbar spondylosis Active 2018 Condition 1355X-Aq-M-37 [facility] Medgrp-Abhay Spasm Active 2018 Condition 6927Z-Vv-N-37 [facility] Medgrp-Abhay Thompson's neuroma of right foot Active 2018 Condition 9625Y-Op-P-37 [facility] Medgrp-Abhay Anxiety disorder Active 2015 Condition 4517Y-Fc-N-37 [facility] Medgrp-Abhay 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 Condition 6198I-So-S-37 [facility] Medgrp-Abhay Severe major depression, single episode, without psychotic features Active 2015 Condition 2208C-Ci-X-37 [facility] Medgrp-Abhay Backache Active 2015 Condition 7319V-Fs-A-37 [facility] Medgrp-Abhay Ischemic stroke3 Active 2015 Condition Outside Source Comment: Overview: Left MCA-September 2012; Acute ischemic left parietal stroke-October 20157620H-Ow-U-37 5Th Med[facility]Abhay Migraine without aura, not refractory4 Active 2015 Condition Outside Source Comment: Overview: 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 6407X-Xs-W-37 5Th Med[facility]Abhay Sleep apnea Active 2015 Condition 1812Z-Po-Q-37 5Th [facility]Abhay Fibromyalgia Active Condition 6130Af- C-37 5Th Med[facility]Abhay 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 Immunization Series Date Given Administered By Site Reaction Lot Number CVX Code Drug Step Down Nurse Status Comments Source COVID Vaccine Pfizer 2020 [facility] [id number] complet ed Result Comment: Route: Unknown Manufactu rer: [employer], Discretix (PFR) 6130C-A f-C-375 Th Medgrp- Abhay COVID Vaccine Pfizer 2020 [facility] [id number] 208 complet ed Result Comment: Route: Unknown Manufactu rer: [employer], [employer]ix (PFR) 6130C-A f-C-375 Th Medgrp- Abhay influenza, injectable, quadrivalent- pf 2019 JOSHUAPCRUM 150 complet ed Result Comment: Unit: Unknown Manufactu rer: () 6130C-A f-C-375 Th Medgrp- Abhay Malawian Encephalitis IM 2018 zzRig ht Arm [id number] 134 Valneva complet ed [place] Encephali tis IM 05/05/19 Given Ambulat ory Pharmac y measles/mumps /rubella virus vaccine 2018 zzRig ht Arm [id number] Merck & Company Inc complet ed measles/m umps/rube lla virus vaccine 05/05/19 Given Ambulat ory Pharmac y influenza, injectable, quadrivalent- p[facility] [id number] 150 Seqirus complet ed influenza , injectabl e, quadrival ent-pf 04/18/19 Given Ambulat ory Pharmac y influenza, injectable, quadrivalent- pf 2017 zzL t Arm [id number] 150 GlaxoSmithKli ne complet ed influenza , injectabl e, quadrival ent-pf 06/05/18 Given Ambulat ory Pharmac y tetanus-dipht h toxoids (Td) adult/adol [facility] [id number] 09 sanofi pasteur complet ed tetanus-d iphth toxoids (Td) adult/ado l 03/04/18 Given Ambulat ory Pharmac y influenza, injectable, quadrivalent- pf [facility] [id number] 150 GlaxoSmithKli ne complet ed influenza , injectabl e, quadrival ent-pf 06/19/17 Given Ambulat ory Pharmac y influenza, injectable, quadrivalent- pf 2015 [facility] [id number] 150 GlaxoSmithKli ne complet ed influenza , injectabl e, quadrival ent-pf 05/15/16 Given Ambulat ory Pharmac y influenza, live, intranasal,qu adrivalent 2014 [id number] 149 Medimmune Inc comple t ed influenza , live, intranasa l,quadriv alent 05/03/15 Given Ambulat ory Pharmac y influenza, live, intranasal,qu adrivalent 2013 [id number] 149 Medimmune Inc comple t ed influenza , live, intranasa l,quadriv alent 05/05/14 Given Ambulat ory Pharmac y influenza, live, intranasal,qu adrivalent 2012 [id number] 149 Medimmune Inc [facility] t ed influenza , live, intranasa l,quadriv alent 05/07/13 Given Ambulat ory Pharmac y influenza, seasonal, injectable [facility] [id number] 141 CSL Behring complet ed influenza , seasonal, injectabl e 05/28/12 Given Ambulat ory Pharmac y tetanus, diphtheria, acellular pertu is 2011 zzLef t Arm [id number] 115 sanofi pasteur complet ed tetanus, diphtheri a, acellular pertussis 05/28/12 Given Ambulat ory Pharmac y tuberculin purified protein derivative 2010 zzLef t Arm [id number] 96 sanofi pasteur complet ed Patient Tolerance : Negative Ambulat ory Pharmac y influenza, seasonal, injectable-pf 2010 zzLef t Arm [id number] 140 CSL Behring complet ed influenza , seasonal, injectabl e-pf 04/21/11 Given Ambulat ory Pharmac y varicella virus vaccine 2009 zzLef t Arm [id number] 21 Merck & Company Inc complet ed varicella virus vaccine 07/27/09 Given Ambulat ory Pharmac y measles/mumps /rubella virus vaccine 2008 zzLef t Arm [id number] 03 Merck & Company Inc complet ed measles/m umps/rube lla virus vaccine 05/28/09 Given Ambulat ory Pharmac y varicella virus vaccine 2008 zzLef t Arm [id number] 21 Merck & Company Inc complet ed varicella virus vaccine 05/28/09 Given Ambulat ory Pharmac y Novel influenza-H1N 1-09, injectable 2008 127 complet ed Novel influenza -M4N8-76, injectabl e 05/19/09 Given Ambulat ory Pharmac y influenza virus vaccine,split 2008 [facility] [id number] 1A 15 CSL Behring complet ed influenza virus vaccine,s plit 05/19/09 Given Ambulat ory Pharmac y influenza virus vaccine,split 2007 zzLef t Arm [id number] 1A 15 CSL Behring complet ed influenza virus vaccine,s plit 05/04/08 Given Ambulat ory Pharmac y rabies vaccine, IM 2007 zzLef t Arm [id number] 175 [employer] complet ed rabies vaccine, IM 10/14/07 Given Ambulat ory Pharmac y rabies vaccine, IM 2007 zzLef t Arm [id number] 175 [employer] complet ed rabies vaccine, IM 10/01/07 Given Ambulat ory Pharmac y rabies vaccine, IM 2007 zzLef t Arm [id number] 175 [employer] complet ed rabies vaccine, IM 09/24/07 Given Ambulat ory Pharmac y influenza virus vaccine,split 2007 zzLef t Arm [id number] 15 [employer] ne complet ed influenza virus vaccine,s plit 09/24/07 Given Ambulat ory Pharmac y Human Papillomaviru s,quadrivalen t(HPV4) 2006 zzRig ht Arm [id number] 62 Merck & Company Inc complet ed Human Papilloma virus,jazmín drivalent (HPV4) 01/21/07 Given Ambulat ory Pharmac y Human Papillomaviru s,quadrivalen t(HPV4) 2006 zzRig ht Arm [id number] 62 Merck & Company Inc complet ed Human Papilloma virus,jazmín drivalent (HPV4) 09/14/06 Given Ambulat ory Pharmac y influenza virus vaccine, whole virus 2005 zzRig ht Arm [id number] 16 sanofi pasteur complet ed influenza virus vaccine, whole virus 07/11/06 Given Ambulat ory Pharmac y Human Papillomaviru s,quadrivalen t(HPV4) 2005 zzRig ht Arm [id number] 62 Merck & Company Inc complet ed Human Papilloma virus,jazmín drivalent (HPV4) 07/11/06 Given Ambulat ory Pharmac y influenza virus vaccine, whole virus 2001 zzLef t Arm [id number] 16 [employer] complet ed influenza virus vaccine, whole virus 05/29/02 Given Ambulat ory Pharmac y tetanus-dipht h toxoids (Td) adult/adol 2001 zzLef t Arm [id number] 09 sanofi pasteur complet ed tetanus-d iphth toxoids (Td) adult/ado l 04/21/02 Given Ambulat ory Pharmac y Results Combined list of recent chemistry, hematology and other laboratory results from Department of Defense and Veterans Affairs, ranging from 15 months to all on record, depending upon the facility. Order Name Results Value Reference Range Date Interpretation Specimen Comments Source Urinalys is UA Urobilinog en TNP 0.2 - 1.0 09/30 0055A-375 MEDGRP-Sc rajni Urinalys is UA Epi Squam 0-2 (09/30/24 10:35 AM) 09/30 N 0055A-375 MED[facility]-Sc rajni Urinalys is UA Glucose TNP 09/305A-375 [facility]Sc rajni Urinalys is UA Bili TNP 09/30 0055A-375 th [facility]-Sc rajni Urinalys is UA Leuk Esterase TNP 09/30 0055A-375 th [facility]Sc rajni Urinalys is UA Ketones TNP 09/30 0055A-375 th MEDGRP-Sc rajni Urinalys is UA Nitrite TNP 09/30 0055A-375 th [facility]-Sc rajni Urinalys is UA WBC 0-2 /HPF 09/30 N 0055A-375 th MEDGRP-Sc rajni Urinalys is UA pH TNP 5 - 8 09/305A-375 th [facility]-Sc rajni Urinalys is UA Protein TNP 09/30 0055A-375 [facility]Sc rajni Urinalys is UA Bacteria Trace (09/30/24 10:35 AM) 09/30 N 0055A-375 th MED[facility]-Sc rajni Urinalys is UA RBC 0-2 /HPF 09/30 N 0055A-375 [facility]Sc rajni Urinalys is UA Color [place] 1 (09/30/24 10:35 AM) 09/30 N Result Comment: Unable to perform testing due to color interferenc e, microscopic exam only. 0055A-375 th MED[facility]-Sc rajni Urinalys is UA Spec [place] TNP 1.001 - 1.035 09/30 0055A-375 th MED[facility]-Sc rajni Urinalys is UA Blood TNP 09/30 0055A-375 [facility]Sc rajni Urinalys is UA Clarity Clear (09/30/24 10:35 AM) 09/30 N 0055A-375 th [facility]-Sc rajni Toxicolo gy U PCP Scrn Negative ng/mL 07/02 N Interpretiv e Data: Interpretat ions: NEGATIVE RESULTS REFLECT A LEVEL OF DETECTION BELOW THE FOLLOWING CUTOFFS: AMPHETAMINE S (AMP)/METHA PHETAMINE 1,000 ng/mL BARBITURATE S (BAR) 300 ng/mL BENZODIAZEP JACQUES (BZO) 200 ng/mL COCAINE (DAVID) 300 ng/mL MARIJUANA (THC) 50 ng/mL METHADONE 300 ng/mL M-DIOXYMETH AMPHETAMINE (ECSTASY) 500 ng/mL OPIATES (MOP) 300 ng/mL OXYCODONE (OXY) 100 ng/mL PHENCYCLIDI NE (PCP) 25 ng/mL 0055A-375 th [facility]Sc rajni Toxicolo gy U Desire Scrn Negative ng/mL 07/02 N 0055A-375 th [facility]GRP-Sc rajni Toxicolo gy U Amph Scrn Negative ng/mL 07/02 N 0055A-375 th [facility]GRP-Sc rajni Toxicolo gy U Cocaine Scrn Negative ng/dL 07/02 N 0055A-375 th MEDGRP-Sc rajni Toxicolo gy U Cannab Scrn Negative ng/mL 07/02 N 0055A-375 th MEDGRP-Sc rajni Toxicolo gy U Methadone Scrn Negative ng/mL 07/02 N 0055A-375 th MEDGRP-Sc rajni Toxicolo gy U Benzodia Scrn Negative ng/mL 07/02 N 0055A-375 th [facility]GRP-Sc rajni Toxicolo gy U Opiate Scrn Negative ng/mL 07/02 N 0055A-375 th MEDGRP-Sc rajni Toxicolo gy U Oxycodone Scrn Negative ng/mL 07/02 N 0055A-375 th MEDGRP-Sc rajni Toxicolo gy U MDMA Scrn Negative ng/mL 07/02 N 0055A-375 th MEDGRP-Sc rajni Chemistr y Folate Lvl >40.0 ng/mL 4.8 - 24.2 07/02 H Interpretiv e Data: Samples should not be taken from patients receiving therapy with high biotin doses (i.e. >5 mg/day) until at least 8 hours following the last biotin administrat ion. Please note that these values were obtained in the [place] during National Health and Nutrition Examination Survey (NHANES), 1999 -2004. it should be taken into considerati on that differences in the expected values may exist with respect to population and dietary status. 0117A-AF- ASU-59th [facility] Chemistr y Vitamin B12 >4000 pg/mL 232 - 1245 07/02 H Interpretiv e Data: Samples should not be taken from patients receiving therapy with high biotin doses (i.e. >5 mg/day) until at least 8 hours following the last biotin administrat ion. 0117A-AF- ASU-59th [facility] Chemistr y TSH 0.535 mIU/L 0.270 - 4.200 07/02 N Interpretiv e Data: Recommend: TPO/Thyrope roxidase Antibody when TSH result is > 4.2 uIU/mL [employer] EPILAB Immunolo gy/Serol ogy JÚNIOR Scrn Negative 6 ( 4 12:58 PM) 07/02 N Interpretiv e Data: - JÚNIOR Screen Titer Result Further Testing - Negative <1:80 No JÚNIOR Negative N/A Yes: LACY AG and dsDNA PANEL Cytoplasmic Stain Observed Positive 1:80 - 1:160 No Positive >/=1:320 Yes: LACY AG and dsDNA PANEL LACY Ag and dsDNA PANEL contains Centromere, dsDNA, Johanna-1, Ribosomal P, AGRICULTURAL PRODUCTION ENGINEER/Sm, Ro-52, Scl-70, Sm, SS-A and SS-B. The performance characteris tics of this assay have not been evaluated for use in pediatric populations . Methodology : Indirect Immunofluor escence Assay (IIFA) Monitoring [employer] EPILAB Immunolo gy/Serol ogy Anti-SSB/L a Ab Negative 19 ( 4 12:58 PM) 07/02 N Interpretiv e Data: The performance characteris tics of this assay have not been evaluated for use in pediatric populations . METHODOLOGY : Enzyme-Link ed Immunosorbe nt Assay (JUDITH). [employer] EPILAB Immunolo gy/Serol ogy Anti-SSA/R o Ab Negative 18 ( 4 12:58 PM) 07/02 N Interpretiv e Data: The performance characteris tics of this assay have not been evaluated for use in pediatric populations . METHODOLOGY : Enzyme-Link ed Immunosorbe nt Assay (JUDITH). 5600A-[facility] FS EPILAB Hematolo gy Eos Absolute 0.1 x10^3/mc L 0.0 - 0.7103 12/05 N MEDGRP-Sc rajni Hematolo gy Eosinophil % Auto 2 % 0 - 5 12/05 N MEDGRP-Sc rajni Hematolo gy Lymphocyte % Auto 36.0 % 20.0 - 40.0 12/05 N MEDGRP-Sc rajni Hematolo gy Lymph Absolute 2.5 x10^3/mc L 1.2 - 4.0103 12/05 N MEDGRP-Sc rajni Hematolo gy [place] Absolute 0.4 x10^3/mc L 0.2 - 0.8103 12/05 N MEDGRP-Sc rjani Hematolo gy Monocyte % Auto 6 % 1 - 12 12/05 N MEDGRP-Sc rajni Hematolo gy Neutro Absolute 3.8 x10^3/mc L 2.0 - 7.0103 12/05 N MEDGRP-Sc rajni Hematolo gy Neutrophil % Auto 55.1 % 46.0 - 77.0 12/05 N MEDGRP-Sc rajni Hematolo gy Baso Absolute 0.0 x10^3/mc L 0.0 - 0.1103 12/05 N MEDGRP-Sc rajni Hematolo gy Basophil % Auto 0.6 % 0.0 - 2.5 12/05 N MEDGRP-Sc rajni Hematolo gy Differenti al? Auto (12/06/23 11:25 AM) 12/05 N MEDGRP-Sc rajni Hematolo gy MCHC 32.3 g/dL 33.0 - 36.5 12/05 L [facility]-Sc rajni Hematolo gy MCH 30 pg 28 - 33 12/05 N MEDGRP-Sc rajni Hematolo gy Hemoglobin 12.7 g/dL 11.0 - 15.0 12/05 N MEDGRP-Sc rajni Hematolo gy Hematocrit 39 % 34 - 46 12/05 N MEDGRP-Sc rajni Hematolo gy MCV 94 fL 80 - 97 12/05 N MEDGRP-Sc rajni Hematolo gy RDW 12.6 % 11.0 - 14.9 12/05 N MEDGRP-Sc rajni Hematolo gy RBC 4.2 x10^6/mc L 3.6 - 5.0106 12/05 N MEDGRP-Sc rajni Hematolo gy Platelets 294.0 x10^3/mc L 150.0 - 450.0103 12/05 N MEDGRP-Sc rajni Hematolo gy MPV 9.8 fL 7.4 - 10.4 12/05 N MEDGRP-Sc rajni Hematolo gy WBC 6.9 x10^3/mc L 4.0 - 11.0103 12/05 N MEDGRP-Sc rajni Chemistr y UIBC, 111.0 ug/dL 112.0 - 347.0 12/05 L 5600A-[place] [facility] EPILAB Chemistr y Transferri n Sat 29 % 14 - 50 12/05 N 5600A-[place] [facility] EPILAB Chemistr y TIBC 157 ug/dL 250 - 400 12/05 L 5600A-[place] [facility] EPILAB Chemistr y Iron 46 ug/dL 37 - 145 12/05 N Interpretiv e Data: METHODOLOGY : Testing performed by colorimetri c assay. 5600A-[place] [facility] EPILAB Chemistr y eGFR CKD EPI 111 mL/min/1 .73_m2 03/30 Interpretiv e Data: Estimated Glomerular Filtration Rate (eGFR) calculated using the 2020 Chronic Kidney Disease-Epi demiology (CKD-EPI) Collaborati on creatinine equation; units of measure are mL/min/1.73 m2. Results are only valid for adults (>=18 years) whose serum creatinine is in steady state. eGFR calculation s are not valid for patients with acute kidney injury and for patients on dialysis. Creatinine- based estimates of kidney function may also be inaccurate in patients with reduced creatinine generation due to decreased muscle mass (e.g., malnutritio n, severe hypoalbumin emia, sarcopenia, chronic neuromuscul ar disease, amputations , severe heart failure or liver disease) and in patients with increased creatinine generation due to increased muscle mass (e.g., muscle builders, anabolic steroids) or increased dietary intake. CKD is diagnosed based on abnormaliti es of kidney structure or function, present for >3 months, with implication s for health and disease. CKD is classified and staged based on cause, eGFR and albuminuria (quantified as urine albumin to creatinine ratio). An eGFR >60 mL/min/1.73 m2 in the absence of increased urine albumin excretion or structural abnormaliti es does not CKD. eGFR provides only an estimate of measured GFR within +/- 30% for most patients. As mentioned, nutritional status and muscle mass, among many factors, may lead to inaccuracy in the estimate. Consider ordering the creatinine- cystatin C panel if better accuracy is needed for clinical decision-tim tyler. eGFR (mL/min/1.7 3 m2) CKD stage Interpretat ion Normal 60-89 Mild decrease 45-59 Mild to moderate decrease 30-44 Moderate to severe decrease 15-29 Severe decrease <15 Kidney failure [facility] Immunolo gy/Serol ogy _HCV Interp 1 LC COMMENT 03/30 Result Comment: Not infected with HCV unless early or acute infection is suspected (which may be delayed in an immunocompr omised individual) , or other evidence exists to indicate HCV infection. Performed At: [address] [id number] Brooklyn Martinez PhD Ph:[phone] zzIOC Standard Chemistr y eAvg Glucose 105 mg/dL 03/30 MEDGRP-Wa rajni Chemistr y Hemoglobin A1c 5.3 % 4.0 - 5.6 03/30 N Interpretiv e Data: Normal: 4.0 - 5.6% Increased Risk: 5.7 - 6.4% Diabetic Range: 6.5% For patients without diabetes, the normal range for the hemoglobin A1c test is between 4% and 5.6%. Hemoglobin A1c levels between 5.7% and 6.4% indicate increased risk of diabetes, and levels of 6.5% or higher indicate diabetes. Because studies have repeatedly shown that out-of-cont rol diabetes results in complicatio ns from the disease, the goal for people with diabetes is a hemoglobin A1c less than 7%. The higher the hemoglobin A1c, the higher the risks of developing complicatio ns related to diabetes. If confirmatio n is needed, consider recalling the patient and ordering Hemoglobin Electrophor esis. MEDGRP-Sc rajni Infectio us Disease HIV-1/O/2 Non-Reac tive 16 (03/30/23 10:51 AM) 03/30 N Interpretiv e Data: INTERPRETAT ION: This method is a screening procedure for the detection of HIV p24 Antigen and Antibodies to HIV-1, including Group O, and/or HIV-2. NON-REACTIV E: HIV-1 antigen and HIV-1 / HIV-2 antibodies were not detected. No laboratory evidence of HIV infection. A negative test result does not exclude the possibility of exposure to or infection with HIV. HIV antibodies and/or p24 antigen may be undetectabl e in some stages of the infection and in some clinical conditions. If acute HIV infection is suspected, consider submitting another specimen to a reference laboratory for HIV-1 RNA. SCREEN REACTIVE - CONFIRMATIO N TO FOLLOW: Possible presence of HIV-1antibo dies, HIV-2 antibodies and/or HIV-1 p24 antigen. Specimen will reflex to the confirmatio n testing that fulfills the Center for Disease Control and Prevention' s HIV diagnostic algorithm. Refer to [facility] Lab Guide for additional information : [email or web address] x Testing performed by [employer]. 5600A-[facility] EPILAB Infectio us Disease HCV Ab LC Non Reactive 03/30 Result Comment: Performed At: [address] [id number] Brooklyn Martinez PhD Ph:[phone] MEDGRP-Sc rajni Chemistr y Alk Phos 83 U/L 40 - 150 03/30 N 0055A-375 [facility]Sc rajni Chemistr y Albumin 3.90 g/dL 3.50 - 5.20 03/30 N 0055A-375 [facility]Sc rajni Chemistr y Chloride 101 mmol/L 98 - 107 03/30 N 0055A-375 [facility]Sc rajni Chemistr y AGAP 12.00 0.00 - 15.00 03/30 N 0055A-375 [facility]-Sc rajni Chemistr y CO2 29 mmol/L 22 - 29 03/30 N 0055A-375 MEDGRP-Sc rajni Chemistr y ALT 19 U/L 5 - 55 03/30 N 0055A-375 [facility]-Sc rajni Chemistr y Creatinine Level 0.70 mg/dL 0.57 - 1.11 03/30 N 0055A-375 [facility]GRP-Sc rajni Chemistr y Glucose Lvl 93 mg/dL 74 - 99 03/30 N 0055A-375 [facility]GRP-Sc rajni Chemistr y Sodium 142 mmol/L 136 - 145 03/30 N 0055A-375 [facility]-Sc rajni Chemistr y AST 23 U/L 5 - 34 03/30 N 0055A-375 [facility]GRP-Sc rajni Chemistr y Potassium Lvl 3.9 mmol/L 3.5 - 5.1 03/30 N 0055A-375 [facility]GRP-Sc rajni Chemistr y Bilirubin Total 0.2 mg/dL 0.2 - 1.2 03/30 N 0055A-375 [facility]GRP-Sc rajni Chemistr y BUN 8 mg/dL 7 - 20 03/30 N 0055A-375 [facility]GRP-Sc rajni Chemistr y Protein Total 6.7 g/dL 6.4 - 8.3 03/30 N 0055A-375 MEDGRP-Sc rajni Chemistr y Calcium 9.7 mg/dL 8.4 - 10.2 03/30 N 0055A-375 MEDGRP-Sc rajni Chemistr y BUN/Creat Ratio 11 mg/dL 12 - 20 03/30 L 0055A-375 [facility]GRP-Sc rajni Chemistr y Cholestero l Total 187 mg/dL 03/30 N Interpretiv e Data: According to the [place] [employer] : AGES 0-19: Desirable: < 170 mg/dL Borderline High: 170-199 mg/dL High Blood Cholesterol : >/= 200 mg/dL ADULTS: Desirable < 200 mg/dL Borderline High: 200-239 mg/dL High Blood Cholesterol : >/= 240 mg/dL [facility]GRP-Sc rajni Chemistr y Chol/HDL 4 mg/dL 03/30 MEDGRP-Sc rajni Chemistr y Triglyceri ph[place] 223 mg/dL 7 - 149 03/30 H Interpretiv e Data: AGES 0-9: Desirable: < 75 mg/dL Borderline High: 75-99 mg/dL High: >/= 100 mg/dL AGES 10-19: Desirable: < 90 mg/dL Borderline High: 90-129 mg/dL High: >/= 130 mg/dL ADULTS: Desirable: < 150 mg/dL Borderline High: 150-199 mg/dL High: >/= 240 mg/dL Very High: >/= 500 mg/dL [facility]GRP-Sc rajni Chemistr y LDL/HDL 3 03/30 [facility]GRP-Sc rajni Chemistr y HDL Cholestero l 42 mg/dL 40 - 59 03/30 N Interpretiv e Data: HDL (HIGH DENSITY LIPOPROTEIN ): ADULTS: Low: < 40 mg/dL High: >/= 60 mg/dL AGES 0 -19: Low: < 40 mg/dL Borderline Low: 40 - 45 mg/dL Acceptable: > 45 mg/dL [facility] LDL 107 mg/dL 100 - 130 03/30 N Interpretiv e Data: AGES 0-19: Desirable: < 110 mg/dL Borderline High: 110-129 mg/dL High: >/= 130 mg/dL ADULTS: Desirable: <100 mg/dL Near/above optimal: 100-130 mg/dL Borderline High: 131-159 mg/dL High: 160-189 mg/dL Very High: 190 mg/dL [facility] CK Total 159 IU/mL 29 - 168 03/30 N 0055A-375 th [facility] TSH 2.210 mIU/L 0.270 - 4.200 03/30 N Interpretiv e Data: Recommend: TPO/Thyrope roxidase Antibody when TSH result is > 4.2 uIU/mL [facility]00[facility] EP[facility] Vital Signs Combined list of inpatient and outpatient Vital Signs from Department of Defense and Veterans Affairs, ranging from 12 months to all on record, depending upon the facility. Vital Sign Value Date Comments Source Temperature Oral 36.3 Becky 12/05/2023 13:08:00 6160M-Bl-N-375Th [facility] Blood Pressure Manual Automatic 12/05/2023 13:08:00 4259N-Rp-O-375Th [facility] BP Site Left arm 12/05/2023 13:08:00 6130C -Af-C-375Th [facility] Mean Arterial Pressure, Calc 87 mm[Hg] 12/05/2023 13:08:00 7019L-Ua-B-3 75Th [facility] Respiratory Rate 20 br/min 12/05/2023 13:08:00 5174E-Fd-P-375Th [facility] Peripheral Pulse Rate 86 bpm 12/05/2023 13:08:00 2466D-Ll-D-375Th [facility] Systolic Blood Pressure 111 mm[Hg] 12/05/2023 13:08:00 5466I-Lo-G-375Th [facility] Diastolic Blood Pressure 75 mm[Hg] 12/05/2023 13:08:00 3737S-Ob-L-375Th [facility] Peripheral Pulse Rate 95 bpm 07/02/2024 16:48:00 8665I-Rs-Q-375Th [facility] Mean Arterial Pressure, Calc 88 mm[Hg] 07/02/2024 16:48:00 6802B-Dc-M-3 75Th [facility] Systolic Blood Pressure 112 mm[Hg] 07/02/2024 16:48:00 8449Y-To-J-375Th [facility] Diastolic Blood Pressure 76 mm[Hg] 07/02/2024 16:48:00 4457O-Na-X-375Th [facility] Blood Pressure Manual Automatic 07/02/2024 16:48:00 0995F-Hb-D-375Th [facility] BP Site Right arm 07/02/2024 16:48:00 6130C -Af-C-375Th [facility] BP Site Left arm 06/18/2023 17:12:00 6130C -Af-C-375Th [facility] Respiratory Rate 16 br/min 06/18/2023 17:12:00 2920F-Nx-V-375Th [facility] Blood Pressure Manual Automatic 06/18/2023 17:12:00 5850Z-Rb-P-375Th [facility] Systolic Blood Pressure 111 mm[Hg] 06/18/2023 17:12:00 7889H-Kl-Z-375Th [facility] Diastolic Blood Pressure 75 mm[Hg] 06/18/2023 17:12:00 9379V-Sh-A-375Th [facility] Mean Arterial Pressure, Calc 87 mm[Hg] 06/18/2023 17:12:00 0169R-Qj-M-3 [facility]Th [facility] Peripheral Pulse Rate 113 bpm 06/18/2023 17:12:00 5820H-Nd-R-375Th [facility] Blood Pressure Manual Automatic 01/25/2024 14:32:00 5500L-Vf-N-375Th [facility] BP Site Right arm 01/25/2024 14:32:00 6130C -Af-C-375Th [facility] Respiratory Rate 16 br/min 01/25/2024 14:32:00 8381S-Bo-K-375Th [facility] Mean Arterial Pressure, Calc 98 mm[Hg] 01/25/2024 14:32:00 1702H-Yl-U-3 75Th [facility] Peripheral Pulse Rate 90 bpm 01/25/2024 14:32:00 9671G-Dm-A-375Th [facility] Systolic Blood Pressure 125 mm[Hg] 01/25/2024 14:32:00 9560Q-Ov-G-375Th [facility] Diastolic Blood Pressure 85 mm[Hg] 01/25/2024 14:32:00 0045D-Yy-T-375Th [facility] Blood Pressure Manual Automatic 06/20/2024 16:42:00 6691U-Qz-P-375Th [facility] Mean Arterial Pressure, Calc 87 mm[Hg] 06/20/2024 16:42:00 2357J-Vu-V-3 75[facility] BP Site Left arm 06/20/2024 16:42:00 6130C -Af-C-375Th [facility] Respiratory Rate 14 br/min 06/20/2024 16:42:00 8345S-Nk-O-375Th [facility] Peripheral Pulse Rate 103 bpm 06/20/2024 16:42:00 0015E-Ws-R-375Th [facility] Systolic Blood Pressure 111 mm[Hg] 06/20/2024 16:42:00 2278Q-Mu-L-375Th [facility] Diastolic Blood Pressure 75 mm[Hg] 06/20/2024 16:42:00 4136J-El-N-375Th [facility] Respiratory Rate 16 br/min 05/29/2023 16:02:00 5203X-Ia-M-375Th [facility] Respiratory Rate 18 br/min 12/31/2023 15:27:00 4595F-Lj-B-375Th [facility] Peripheral Pulse Rate 82 bpm 12/31/2023 15:27:00 9023R-Fk-K-375Th [facility] Systolic Blood Pressure 119 mm[Hg] 12/31/2023 15:27:00 5184P-Sp-O-375Th [facility] Diastolic Blood Pressure 79 mm[Hg] 12/31/2023 15:27:00 1904D-Hc-P-375Th [facility] Mean Arterial Pressure, Calc 92 mm[Hg] 12/31/2023 15:27:00 1575H-Pw-L-3 75Th [facility] Blood Pressure Manual Automatic 12/31/2023 15:27:00 5926Z-Nu-J-375Th [facility] BP Site Left arm 12/31/2023 15:27:00 6130C -Af-C-375Th [facility] Respiratory Rate 18 br/min 02/19/2023 20:06:00 8887S-Dg-W-375Th [facility] Peripheral Pulse Rate 89 bpm 04/29/2024 15:30:00 8382M-Mm-B-375Th [facility] Mean Arterial Pressure, Calc 89 mm[Hg] 04/29/2024 15:30:00 1867Q-Mp-V-3 75[facility] Systolic Blood Pressure 120 mm[Hg] 04/29/2024 15:30:00 1313I-Aj-D-375Th [facility] Diastolic Blood Pressure 73 mm[Hg] 04/29/2024 15:30:00 6070P-Qv-X-375Th [facility] Blood Pressure Manual Automatic 04/29/2024 15:30:00 8492G-St-Q-375Th [facility] BP Site Left arm 04/29/2024 15:30:00 6130C -Af-C-375Th [facility] Systolic Blood Pressure 129 mm[Hg] 11/21/2023 13:14:00 5339F-Ae-I-375Th [facility] Diastolic Blood Pressure 85 mm[Hg] 11/21/2023 13:14:00 7351H-Il-R-375Th [facility] Blood Pressure Manual Automatic 11/21/2023 13:14:00 5590Y-Sm-R-375Th [facility] Peripheral Pulse Rate 93 bpm 11/21/2023 13:14:00 8740B-Jf-U-375Th [facility] Respiratory Rate 22 br/min 11/21/2023 13:14:00 4514T-Vy-M-375Th [facility] Mean Arterial Pressure, Calc 100 mm[Hg] 11/21/2023 13:14:00 1185V-Rj-S-3 75Th [facility] Temperature Oral 36.6 Becky 11/21/2023 13:14:00 7030I-Lb-Z-375Th [facility] BP Site Left arm 11/21/2023 13:14:00 6130C -Af-C-375Th [facility] Mean Arterial Pressure, Calc 89 mm[Hg] 09/24/2023 15:56:00 0345Q-Qc-G-3 75Th [facility] Respiratory Rate 16 br/min 09/24/2023 15:56:00 7302F-Ok-P-375Th [facility] Peripheral Pulse Rate 99 bpm 09/24/2023 15:56:00 3675P-Yv-B-375Th [facility] Blood Pressure Manual Automatic 09/24/2023 15:56:00 6445B-Gp-D-375Th [facility] Systolic Blood Pressure 119 mm[Hg] 09/24/2023 15:56:00 1512O-Mj-L-375Th [facility] Diastolic Blood Pressure 74 mm[Hg] 09/24/2023 15:56:00 9246L-Pq-O-375Th [facility] BP Site Left arm 09/24/2023 15:56:00 6130C -Af-C-375Th [facility] BP Site Left arm 12/20/2023 14:16:00 6130C -Af-C-375Th [facility] Blood Pressure Manual Automatic 12/20/2023 14:16:00 6276A-Vu-O-375Th [facility] Mean Arterial Pressure, Calc 84 mm[Hg] 12/20/2023 14:16:00 4247H-Kd-L-3 75Th [facility] Temperature Oral 36.9 Becky 12/20/2023 14:16:00 8225L-Dv-Y-375Th [facility] Respiratory Rate 20 br/min 12/20/2023 14:16:00 9898G-Et-Q-375Th [facility] Peripheral Pulse Rate 81 bpm 12/20/2023 14:16:00 3997I-Pq-Y-375Th [facility] Systolic Blood Pressure 109 mm[Hg] 12/20/2023 14:16:00 5201B-Bx-L-375Th [facility] Diastolic Blood Pressure 71 mm[Hg] 12/20/2023 14:16:00 9648F-Fn-O-375Th [facility] Encounters Combined list of: 1) Encounters from Department of Veterans Affairs facilities going backup to the last 18 months, not all VA inpatient encounters are included; 2) Encounters from the Department of Defense facilities going backup to 280 months. Location Location Details Encounter Type Encounter Number Reason For Visit Attending Provider ADM Date DC Date Status Disposition Source 6130C-Af- C-375Th [facility] Between Visit [id number] 09/02 Discharge Disposition: Home or Self Care 6130C-A f-C-375 Th [facility] 6130C-Af- C-375Th [facility] Between Visit [id number] 09/08 Discharge Disposition: Home or Self Care 6130C-A f-C-375 Th [facility] 6130C-Af- C-375Th [facility] Between Visit [id number] [place], unspeci fied 09/08 Discharge Disposition: Home or Self Care 6130C-A f-C-375 Th [facility] 6130C-Af- C-375Th [facility] Between Visit [id number] 09/29 Discharge Disposition: Home or Self Care 6130C-A f-C-375 Th [facility] 0055A-375 th [facility] Outpatient [id number] RACHAELArley LEE 09/30 0055A-3 [facility] Procedures Combined list of: 1) Procedures from Department of Veterans Affairs facilities going back up to thelast 18 months, not all [place] non-surgical procedures are included; 2) All procedures from the Department of Defense facilities. Procedure Procedure Type Code Date Perfomer Comments Sourc e DSTRJ NEUROLYTIC PLANTAR COMMON DIGITAL NERVE DSTRJ NEUROLYTIC PLANTAR COMMON DIGITAL NERVE 80010 6129C-Af-C -375 [facility] Esophagogastroduodenos copy, flexible, transoral; diagnostic, including collection of specimen(s) by brushing or washing, when performed (separate procedure) Upper gastrointestinal endoscopy including esophagus, stomach, and either the duodenum and/or jejunum as appropriate; diagnostic, with or without collection of specimen(s) by brushing or washing (separate procedure) 59113 30C-A f-C -375 [facility] 12-LEAD ECG PERFORMED 12-LEAD ECG PERFORMED 3120F 30C-Af-C -375 [facility] Injection onabotulinumtoxina 6130C- Af-C -375 [facility] Polysomnography; any age, sleep staging with 1-3 additional parameters of sleep, attended by a technologist Polysomnography; sleep staging with 1-3 additional parameters of sleep, attended by a technologist [id number] 6130C-Af-C -375Th [facility] NJX ANES&/STEROID PLANTAR COMMON DIGITAL NERVE NJX ANES&/STEROID PLANTAR COMMON DIGITAL NERVE 04806 6130C-Af-C -375Th [facility] Laryngoscopy, flexible fiberoptic; diagnostic Laryngoscopy, flexible fiberoptic; diagnostic 21851 Outside Source Comment: After verbal informed consent, time out performed, topical 4% lidocaine and afrin sprayed in the nose bilaterally. Flexible scope was passed through bilateral nares and into hypopharynx with findings as described in above exam. Pt tolerated well without c omplications. 6130C-Af-C -375Th [facility] Colonoscopy, flexible, proximal to splenic flexure; with biopsy, single or multiple Colonoscopy, flexible, proximal to splenic flexure; with biopsy, single or multiple [id number] 6130C-Af-C -375Th [facility] Avulsion of nail plate, partial or complete, simple; single Avulsion of nail plate, partial or complete, simple; single 20454 6130C-Af-C -375Th [facility] Chemodenervation of muscle(s); muscle(s) innervated by facial, trigeminal, cervical spinal and acce ory nerves, bilateral (eg, for chronic migraine) Chemodenervation of muscle(s); muscle(s) innervated by facial, trigeminal, cervical spinal and accessory nerves, bilateral (eg, for chronic migraine) 66223 6130C-Af-C -375Th [facility] Arthrocentesis, aspiration and/or injection; major joint or bursa (eg, shoulder, hip, knee joint, subacromial bursa) Arthrocentesis, aspiration and/or injection; major joint or bursa (eg, shoulder, hip, knee joint, subacromial bursa) 49190 6130C-Af-C -375Th [facility] Excision, benign lesion including margins, except skin tag (unle listed elsewhere), scalp, neck, hands, feet, genitalia; excised diameter 0.6 to 1.0 cm Excision, benign lesion including margins, except skin tag (unless listed elsewhere), scalp, neck, hands, feet, genitalia; excised diameter 0.6 to 1.0 cm 28889 6130C-Af-C -375Th [facility] Shaving of epidermal or dermal lesion, single lesion, trunk, arms or legs; lesion diameter 0.5 cm or le Shaving of epidermal or dermal lesion, single lesion, trunk, arms or legs; lesion diameter 0.5 cm or less 79698 6130C-Af-C -375Th [facility] Upper gastrointestinal endoscopy including esophagus, stomach, and either the duodenum and/or jejunum as appropriate; with biopsy, single or multiple Upper gastrointestinal endoscopy including esophagus, stomach, and either the duodenum and/or jejunum as appropriate; with biopsy, single or multiple 36692 6130C-Af-C -375Th [facility] Small intestinal endoscopy, enteroscopy beyond second portion of duodenum, not including ileum; with biopsy, single or multiple Small intestinal endoscopy, enteroscopy beyond second portion of duodenum, not including ileum; with biopsy, single or multiple 12101 6130C-Af-C -375Th [facility] Social History Combined list of available smoking, tobacco, and other social history from 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 Social History Type Response Date Comment [facility] e Sex Representation Female 02/18/2020 Unknow n Organization Tobacco Cigarette use: Never-cigarette user. Other Tobacco use: Never-other tobacco user (not cigarettes). Ambulatory Pharmacy Sexual Orientation Ambula tory Pharmacy Gender identity Ambulator y Pharmacy Assessment and Plan Combined list of future care activities from Department of Defense and Veterans Affairs facilities (e.g., assessment and plan notes, appointments, orders, and referrals). Additional future care activities may be listed in the Plan of Care section. Result Assessment and Plan Date Source Assessment and Plan Extracted from:Title : FM- concerns- Office Clinic Note Author: RACHAEL CLEMENS MD Date: 07/02/24 1. A nxiety disorder 43yF presenting for f/u on anxiety and depression. WILLIAM 21 (c/w last visit) and PHQ 22. Pt is in hydroxyzine prn, b uspirone 15mg TID, duloxetine 120mg daily -Continue with counseling therapy -Psychiatry referral placed last visit and she has not yet attended, encouraged her to have specialist decision on her psych managment as PHQ/WILLIAM scores remain elevated after significant medications used to treat her - will f/u on neuropsych testing as below - will place referral for acupuncture -denies SI/HI -follow up 1 month I have personally spent 40 minutes total time today in preparation, patient care, and documentation for this visit, including the following: review of clinical lab tests, review of medical record, counseling patient, shared-decision making discussions Ordered: Thyroid Stimulating Hormone Referral Request 2.0 - DoD Referral Request 2.0 - DoD 2. I mpaired concentration I nterested in neuropsych t esting May be related to uncontrolled anxiety but pt opts for neuropsych t esting Will refer today Ordered: Referral Request 2.0 - DoD 3. B rittle nails W ill screen for B12, Folate, sjogrens - reordering labs ordered at last visit as not obtained 4. F ibromyalgia C hronic, stable Will refer to acupuncture to help with pain, anxiety, concentration Would recommend consideration of dragons, windows, auricular 5. K eratoconjunctivitis sicca C oncern for Sjogrens Will screen today If not will consider med AE Ordered: JÚNIOR Screen Panel Sjogren's Antibody Panel Orders: Drug Screen, Urine //SIGNED// Eric A maurice Clemens MD, [facility], Family Medicine Faculty Physician [employer], [facility] [place], [place] Extracted from:Title: [facility] [place] Author: EDDIE CACERES MD Date: 06/20/24 1. P ain in forearm A cute, uncontrolled. Suspect possible tendinitis along her abductor pollicus l ongus given point tenderness. However, thumb opposition was not restricted. Pain most seen with wrist extension. Low suspicion for neuropathic pain at this time given hx a nd exam. Low suspicion for fracture given lack of trauma and prior imaging of xr at the ED. Will proceed with conservative mgmt and patient has plan to follow-up with established ortho doc. - Order lidocaine patch to apply to area. - Plan to follow-up with already e stablished o rtho doc - Encourage range of motion - Consider [facility] ultrasound if not improving - RX3 resource provided Orders: lidocaine topical(lidocaine 5% topical patch), 1 patch(es), Topical, Daily, Leave on for up to 12 hours within a 24 hour period (12 hours on, 12 hours off), # 30 patch(es), 3 total refill(s), Maintenance, 1 patch(es) Topical Daily,Instr:Leave on for up to 12 hours within a 24 hour period (12 hours... 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 I have reviewed the note and agree with the findings, assessment, and plan except as I have documented below. Follow up as listed. All labs/imaging/consults to be followed by the ordering provider. Raul Villagomez DO, , [facility], Staff Physician Extracted from:Title: [place]_Obesity, dry eyes, suboxone refilled Author: LIGIA WALTON DO Date: 04/29/24 1. L umbar spondylosis chronic pain -CT evidence of retrolisthesis of L2 on L3 - will refill Suboxone (8mg-2mg) 1 film TID - no need for additional Narcan at this time - O rdered urine s creen and stated next appointment can be a virtual one then in person appointment a fterwards - ER precautions discussed Ordered: Drug Screen, Urine 2. M orbid obesity M orbid obesity C hronic, u ncontrolled. Current BMI: Class II obesity, BMI 3 9. N o concerning signs of secondary causes of obesity. No e/o medication s/e. Phentermine: R efilled 3 7.5mg mg once daily before breakfast; treatment for 3 months more then consider GLP-1 as she has only had 3% weight loss on phentermine and is at risk of CV events given her history o f having a stroke, b ut patient t hrough shared decision making would like to go on at least 3 more months w ith phentermine -nutrition referral placed -GLP-1 i neffective d iscussion towards bariatric surgery w ould be indicated a s her BMI i s class II obesity and she is got significant c omorbidities -rtc in 3 months for weight check Ordered: Referral Request 2.0 - DoD 3. K eratoconjunctivitis sicca Chronic complicated -Differentials include m edication side effect g simone she is on h ydroxyzine a nd?23 home medications -History o btained s uspicious for Sjogren's d isease a nd lab work obtained?which will follow up with patient through virtual encounter Ordered: JÚNIOR Screen Panel Sjogren's Antibody Panel 4. A nxiety disorder 4 3yF presenting for f/u on anxiety and depression. WILLIAM 21 (c/w last visit) and PHQ 20. -discussed continuing hydroxyzine 50mg, currently on QID PRN -continue buspirone 15mg TID, duloxetine 120mg daily -Continue with counseling therapy -Psychiatry referral placed last visit and she has not yet attended, encouraged her to have specialist decision on her psych managment as PHQ/WILLIAM scores remain elevated after significant medications used to treat her -denies SI/HI -follow up prn Capt Jesús (, [facility] Patient Registration Representative, PGY-2 [employer] Orders: phentermine(phentermine 37.5 mg oral tablet), 1 tab(s), Oral, Daily, # 30 tab(s), 0 total refill(s), Maintenance, 1 tab(s) Oral Daily, Pharmacy: [facility] #[id number] [External Rx] buprenorphine-naloxone(Suboxone 8 mg-2 mg sublingual film), 1 film(s), SubLingual, TID, # 90 film(s), 0 total refill(s), Maintenance, 1 film(s) SubLingual TID, Pharmacy: [facility] #[id number] [External Rx] Addendum by LASHONDA RINCON MD on April 29, 2024 12:34:53 CDT On the day of encounter, I was available for discussion with the resident physician. Case was discussed with me in the Teach Room. I agree with the assessment and plan of care as documented above with any exceptions/additions noted below if necessary. All labs/rads/consults to be followed by the ordering provider. DO Giovanni Shearer, [facility] Family Medicine Physician Extracted from:Title: Office Clinic Note Author: RAUL VILLAGOMEZ DO Date: 04/04/24 Chronic back pain chronic pain - will refill Suboxone (8mg-2mg) 1 film TID - no need for additional Narcan at this time - get drug screen next visit - ER precautions discussed Orders: buprenorphine-naloxone(Suboxone 8 mg-2 mg sublingual film), 1 film(s), SubLingual, TID, # 90 film(s), 0 total refill(s), Maintenance, 1 film(s) SubLingual TID, Pharmacy: [facility] #[id number] [External Rx] Raul Villagomez DO. Family Medicine Physician . [place] Extracted from:Title: Alisa_Obesity, Insomnia, WILLIAM Author: LIGIA WALTON MD Date: 01/25/24 1. M orbid obesity Chronic, u ncontrolled. Current BMI: O besity Class III (>40). No concerning signs of secondary causes of obesity. No e/o medication s/e. P hentermine: increased from 30 to 37.5mg mg once daily before breakfast; treatment for 3 months -nutrition referral placed -may be unable to take Qsymia (on topiramate already) or Contrave (on suboxone) -consider Orlistat then GLP-1 -rtc in 4 weeks for weight check Chronic, u ncontrolled. Current BMI: O besity Class III (>40). No concerning signs of secondary causes of obesity. No e/o medication s/e. - Goals of therapy: [_] weight loss of 5-7% Ordered: phentermine(phentermine 37.5 mg oral tablet), 1 tab(s), Oral, Daily, # 30 tab(s), 0 total refill(s), Maintenance, 1 tab(s) Oral Daily, Pharmacy: [facility] #[id number] [External Rx] Referral Request 2.0 - DoD 2. A nxiety disorder 43yF presenting for f/u on anxiety and depression. WILLIAM 21 (c/w last visit) and PHQ 20. -discussed continuing hydroxyzine 50mg, currently on QID PRN -continue buspirone 15mg TID, duloxetine 120mg daily -Continue with counseling therapy -Psychiatry referral placed -denies SI/HI -follow up prn Ordered: Referral Request 2.0 - DoD 3. I nsomnia Acute, u ncontrolled. Counseled pt about good sleep hygiene, recommending using bedroom only for sleep/sex, keeping room as dark as possible and distractions to a minimum. Advised to refrain from eating and exercising within 3 hours of sleep, minimizing caffeine and EtOH use and to exercise daily. Advised to keep regular sleep schedule, going to bed and awaking at same time daily. Advised pt to refrain from naps and reading/watching TV in bedroom. TONY and C PAP c ompliant -Continue rodri Akers, (), [facility], Patient Registration Representative, PGY-1 [facility] [place] Ordered: Referral Request 2.0 - DoD Orders: lidocaine topical(lidocaine 5% topical patch), 1 patch(es), Topical, Daily, 90 EA, APPLY 1 PATCH TO THE AFFECTED AREA DIRECTED. NO LONGER THAN 12 HOURS PER DAY, # 90 patch(es), 3 total refill(s), Maintenance, 1 patch(es) Topical Daily,Instr:90 EA, APPLY 1 PATCH TO THE AFFECTED AREA DIRECTED.... Addendum by CORA MORRISON MD on February 15, 2024 17:48:27 CDT I was present and available in the family medicine clinic during the patient's appointment.? The case was discussed with me and I agree with the assessment and plan as documented. ? HLF Extracted from:Title: Fam[facility]-Anxiety F/u, Obesity Author: MERLENE SOTOMAYOR, DO Date: 12/31/23 1. A nxiety 43yF presenting for f/u on anxiety and depression. WILLIAM 21 (c/w last visit) and PHQ 20. -discussed continuing hydroxyzine 50mg, currently on QID PRN -continue buspirone 15mg TID, duloxetine 120mg daily -discussed continued seeking of counseling, referral placed -recommend psych referral, patient notes she prefers to see one provider however could be helpful due to complex needs, due to PCSing will refer at this time -denies SI/HI, however does have passive morbid ideation -rtc in 2-4 weeks Ordered: Referral Request 2.0 - DoD 2. O besity Will start with [x] Phentermine: 30mg once daily before breakfast; treatment for 3 months -nutrition referral placed last visit -may be unable to take Qsymia (on topiramate already) or Contrave (on suboxone) -consider Orlistat then GLP-1 -rtc in 4 weeks for weight check Orders: phentermine(phentermine 30 mg oral capsule), 1 cap(s), Oral, Daily, # 30 cap(s), 0 total refill(s), Maintenance, 1 cap(s) Oral Daily, Pharmacy: [facility] #[id number] [External Rx] phentermine to [facility] in [place] psychiatry referral Addendum by CORA MORRISON MD on January 07, 2024 14:33:55 CDT I was present and available in the family medicine clinic during the patient's appointment.? The case was discussed with me and I agree with the assessment and plan as documented. ? HLF Extracted from:Title: Fam Med - Insomnia F/U Author: HILL CELESTE MD Date: 12/20/23 1. I nsomnia Chornic, moderately controlled. Intolerable side effects with ambien, would like to switch back to lunesta. order placed. Follow up prn. Orders: eszopiclone(Lunesta 3 mg oral tablet), 1 tab(s), Oral, every day at bedtime, PRN insomnia, # 90 tab(s), 0 total refill(s), Maintenance, 1 tab(s) Oral every day at bedtime,PRN:insomnia, Pharmacy: [facility] #[id number] [External Rx] Hill Celeste MD PGY-3 Family Medicine [facility] [place] [facility] Addendum by RACHAEL CLEMENS MD on December 20, 2023 11:17:14 CDT I certify that I was present for case discussion in the Family Medicine preceptor room at the time of this encounter. I have reviewed the note and agree with the findings, assessment, and plan except as I have documented below. Follow up as listed. All labs/imaging/consults to be followed by the ordering provider. Maj Deni Tabares) Family Medicine Physician [facility] [place], [place] Extracted from:Title: FamMed-Anxiety F/u Author: MERLENE SOTOMAYOR DO Date: 12/05/23 1. A nxiety disorder 43yF presenting for f/u on anxiety and depression. WILLIAM 21 (c/w last visit) and PHQ 20. -discussed patient may take hydroxyzine 50mg more frequently, currently only QID PRN -continue buspirone 15mg TID, duloxetine 120mg daily -discussed continued seeking of counseling, referral placed -consider psych referral, patient notes she prefers to see one provider however could be helpful due to complex needs -denies SI/HI, however does have passive morbid ideation at this time -rtc in 2-4 weeks 2. I nsomnia patient had tried lunesta but thinks that ambien had worked better for her -will restart ambien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
== END 2024-09-30 17:37 | disposition home or self-care (01) ==
PROVIDERS: Emergency Provider Nurse Practitioner Family
DX: R30.0 Dysuria (principal); R10.30 Lower abdominal pain, unspecified; M54.50 Low back pain, unspecified; Z98.84 Bariatric surgery status; Z87.891 Personal history of nicotine dependence
CPT/HCPCS: 87086; 99213; G0463

== ENCOUNTER 2024-10-02 10:35 | Emergency (ER) | payer BC, OTHER, SELFPAY ==
[2024-10-02 10:59] VITALS: BP 136/92; PULSE 97; RESP 20; TEMP 36.6; O2SAT 100
--- NOTE | 2024-10-02 11:12 | ED.FEMALEGU ---
HPI - Female Genitourinary General Chief complaint: Urogenital-Female Stated complaint: Bladder infection Source: patient and RN notes reviewed Mode of arrival: ambulatory Limitations: no limitations History of Present Illness HPI Narrative: 44-year-old female presented for complaint of suprapubic abdominal pain which she describes as a burning sensation for 4 days. Rates pain 5/10, and endorses associated nausea. Also endorses occasional burning and itching the gianna area and occasional odor. She reports vaginal bleeding/spotting a week ago. Patient was seen 2 days ago in the clinic, treated with Bactrim for possible UTI. Patient states she is concerned symptoms are possibly vaginal. She denies concern for or STD. LMP 3/9. Says she often has only one BM weekly, LBM 5 days ago. Denies vaginal discharge, dysuria, hematuria, nausea, vomiting, flank pain, constipation, diarrhea, fevers or chills. Changed body wash. Related Data Home Medications ?Medication ?Instructions ?Recorded ?Confirmed ?Last Taken ?Type aspirin 81 mg tablet,delayed 81 mg PO DAILY 11/21/22 09/22/24 Unknown History release (Adult Aspirin Regimen) atorvastatin 40 mg tablet (Lipitor) 40 mg PO DAILY 11/21/22 09/22/24 Unknown History buprenorphine 8 mg-naloxone 2 mg 1 tablet sublingual TID 11/21/22 09/22/24 Unknown History sublingual tablet buspirone 15 mg tablet 15 mg PO DAILY 11/21/22 09/22/24 Unknown History duloxetine 60 mg capsule,delayed 60 mg PO DAILY 11/21/22 09/22/24 Unknown History release eszopiclone 3 mg tablet (Lunesta) 3 mg PO QHS 11/21/22 09/22/24 Unknown History fexofenadine 180 mg tablet 180 mg PO DAILY 11/21/22 09/22/24 Unknown History (Robyn Allergy) levothyroxine 137 mcg tablet 137 mcg PO DAILY 11/21/22 09/22/24 Unknown History (Synthroid) mometasone 50 mcg/actuation nasal 2 spray intranasal DAILY PRN 11/21/22 09/22/24 Unknown History spray Shortness Of Breath Or Wheezing mv-mn-folic 200 mcg-vit K 15 1 cap PO BID 11/21/22 09/22/24 Unknown History mcg-lutein 5 mg-zeaxanthin 1 mg capsule (PreserVision AREDS 2 Plus Multivit) nebivolol 5 mg tablet (Bystolic) 5 mg PO DAILY 11/21/22 09/22/24 Unknown History omeprazole 20 mg capsule,delayed 20 mg PO DAILY 11/21/22 09/22/24 Unknown History release pilocarpine HCl 5 mg tablet 5 mg PO TID 11/21/22 09/22/24 Unknown History pregabalin 150 mg capsule (Lyrica) 150 mg PO BID 11/21/22 09/22/24 Unknown History sumatriptan succinate 100 mg tablet See Rx Instructions PO .COMPLEX 11/21/22 09/22/24 Unknown History topiramate 50 mg tablet (Topamax) 50 mg PO TID 11/21/22 09/22/24 Unknown History atogepant 60 mg tablet (Qulipta) 60 mg PO DAILY 06/13/24 09/22/24 Unknown History cyclobenzaprine 10 mg tablet 10 mg PO TID 06/13/24 09/22/24 Unknown History erenumab-aooe 70 mg/mL 70 mg subcut DIRECTED 06/13/24 09/22/24 Unknown History subcutaneous auto-injector (Aimovig Autoinjector) hydroxyzine pamoate 50 mg capsule 50 mg PO DIRECTED 06/13/24 09/22/24 Unknown History trazodone 100 mg tablet 100 mg PO DIRECTED PRN insomnia 06/13/24 09/22/24 Unknown History lidocaine 1.8 % topical patch 1 patch topical DAILY 06/26/24 09/22/24 Unknown History omega 4-czs-xfw-fish oil 60 mg-90 1 cap PO DAILY 06/26/24 09/22/24 Unknown History mg-500 mg capsule (Fish Oil) Allergies Allergy/AdvReac Type Severity Reaction Status Date / Time No Known Allergies Allergy Verified 10/02/24 10:58 Review of Systems Review of Systems: CONSTITUTIONAL: Denies body aches, fever, chills, or sweats. CARDIOVASCULAR: Denies chest pain, palpitations, or edema. RESPIRATORY: Denies cough or dyspnea. GASTROINTESTINAL: reports suprapubic abdominal pain, nausea, denies vomiting, or diarrhea. GENITOURINARY:denies dysuria, frequency, urgency, hematuria, flank pain SKIN: Denies rash, itching, or wounds. MUSCULOSKELETAL: Denies back pain or myalgia. PMFSH Past Medical History Medical History Radial head fracture, closed Distal radius fracture, right Thompsno's neuroma of right foot (~2016) Abdominal hernia (~2011) Previous gastric bypass complicating , antepartum (~2007) Surgical History Surgical History Hx of cholecystectomy (~2009) History of (~2007) Family History Family History Unknown Hypertension Depression Diabetes mellitus Cerebrovascular accident Social History Social History Smoking status: Former smoker Alcohol intake: never Substance use: never Substance use type: does not use Do You Feel Safe in your Home?: Yes Lack of Transportation: No Lack of Food: Never True Current Housing: I Have Housing Concerned About Future Housing: No Difficulty Paying Gas/Electric Bills: No Difficulty Paying for Meds: No Currently Unemployed: No Education: Associate Degree Difficulty w/ Childcare or Family Care: No Living arrangements: with family Occupation/Education: occupation 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 Please see nursing chart for further information. There is no relevant family history pertinent to the presenting complaint Exam Narrative: GENERAL: Well-appearing ENT: Mucous membranes pink and moist. CHEST: No respiratory distress. Clear to auscultation. HEART: Regular rate and rhythm. ABDOMEN: Soft, nontender, nondistended, normal active bowel sounds. No CVA tenderness : normal vaginal introitus, pink without discharge/bleeding, foreign body, laceration or lesions, white cream in vaginal vault c/w reports of using monistat. No swelling. Nontender. normal appearance of the cervix, closed. Normal appearing gianna area. Chaperoned by Gin DUDLEY SKIN: Warm, dry, no rash. NEURO: No focal deficits. Alert and oriented x3. Gait steady. PSYCH: Normal affect. Course Course Emergency Course: Patient is aware of diagnosis, understands and agrees to treatment plan. Anticipatory guidance given. Patient agrees to follow-up as directed and is aware of reasons to seek care at the emergency department. Portions of this record may have been created with voice recognition software Level of Care: Express Care Visit Vital Signs Vital signs: Vital Signs Temperature 97.8 F 10/02/24 10:59 Pulse Rate 97 10/02/24 10:59 Respiratory Rate 20 10/02/24 10:59 Blood Pressure 136/92 H 10/02/24 10:59 Pulse Oximetry 100 10/02/24 10:59 Oxygen Delivery Room Air 10/02/24 10:59 Temperature 97.8 F 10/02/24 10:59 Pulse Rate 97 10/02/24 10:59 Respiratory Rate 20 10/02/24 10:59 Blood Pressure 136/92 H 10/02/24 10:59 Pulse Oximetry 100 10/02/24 10:59 Oxygen Delivery Room Air 10/02/24 10:59 Reviewed MDM - Female Genitourinary MDM Narrative Medical decision making narrative: Discussed physical exam findings, urine culture from 09/30 showed no growth, Swabs for BV and yeast sent, though the tests may be affected by the monistat cream. Advised for further evaluation pt will need labs and imaging, offered ER transfer. Pt states she will have to pick and shovel man her child before she can go to the ER. Advised supportive measures and signs/symptoms to go to the ER. Pt is appropriate for outpt treatment and f/u with pcp and obgyn. Differential Diagnosis Differential diagnosis: Likely urinary tract infection, bacterial vaginosis, cervicitis, vaginitis, cystitis and other (PID) Discharge Plan Discharge Clinical Impression: Abdominal pain, suprapubic Patient Disposition: Home, Self-Care Condition: Stable Instructions: Antibiotic Form, Abdominal Pain (ED) Additional Instructions: Urine culture was negative for a UTI Tests have been sent to check for bacterial vaginosis and yeast. We will call you with the results, it can take up to 7 days. You have a prescription for fluconazole which will treat a yeast infection. You should go to the hospital if you experience persistent nausea and vomiting that does not resolve and does not allow you to tolerate any food or fluids, fevers, increasing abdominal pain, persistent diarrhea, dizziness, fainting, or for any other concerns. Follow up with primary care provider within 3 days. Recommend establishing with an Obgyn Patient Language: Fijian Prescriptions: New fluconazole 150 mg tablet 150 mg PO DAILY Qty: 2 0RF No Action cyclobenzaprine 10 mg tablet 10 mg PO TID hydroxyzine pamoate 50 mg capsule 50 mg PO DIRECTED trazodone 100 mg tablet 100 mg PO DIRECTED PRN (Reason: insomnia) Aimovig Autoinjector 70 mg/mL auto-injector 70 mg SUBCUT DIRECTED Qulipta 60 mg tablet 60 mg PO DAILY sulfamethoxazole-trimethoprim [Bactrim DS] 800-160 mg tablet 1 tablet PO Q12H 5 Days Qty: 10 0RF levothyroxine [Synthroid] 137 mcg tablet 137 mcg PO DAILY omeprazole 20 mg capsule,delayed release(DR/EC) 20 mg PO DAILY mometasone 50 mcg/actuation spray,non-aerosol 2 spray intranasal DAILY PRN (Reason: Shortness Of Breath Or Wheezing) Rx Instructions: administer into each nostril topiramate [Topamax] 50 mg tablet 50 mg PO TID sumatriptan succinate 100 mg tablet See Rx Instructions PO .COMPLEX Rx Instructions: take 1 tab at onset of headache; if no relief, may repeat 1 tab after at least 2 hrs; max = 2 tabs/24 hrs PO nebivolol [Bystolic] 5 mg tablet 5 mg PO DAILY fexofenadine [Robyn Allergy] 180 mg tablet 180 mg PO DAILY atorvastatin [Lipitor] 40 mg tablet 40 mg PO DAILY pregabalin [Lyrica] 150 mg capsule 150 mg PO BID aspirin [Adult Aspirin Regimen] 81 mg tablet,delayed release (DR/EC) 81 mg PO DAILY eszopiclone [Lunesta] 3 mg tablet 3 mg PO QHS buprenorphine-naloxone 8-2 mg tablet, sublingual 1 tablet sublingual TID pilocarpine HCl 5 mg tablet 5 mg PO TID PreserVision AREDS 2 Plus MV 200 mcg-15 mcg- 5 mg-1 mg capsule 1 cap PO BID duloxetine 60 mg capsule,delayed release(DR/EC) 60 mg PO DAILY buspirone 15 mg tablet 15 mg PO DAILY omega 0-zlk-nap-fish oil [Fish Oil] 60-90-500 mg capsule 1 cap PO DAILY lidocaine 1.8 % adhesive patch,medicated 1 patch topical DAILY Rx Instructions: leave on most painful area for up to 12 hrs meloxicam 15 mg tablet 15 mg PO DAILY Qty: 14 0RF alum-mag hydroxide-simeth [Advanced Antacid-Antigas] 200-200-20 mg/5 mL suspension 10 ml PO QID PRN (Reason: indigestion) Qty: 3000 0RF Rx Instructions: administer between meals and at bedtime ondansetron 4 mg tablet,disintegrating 4 mg PO Q8H PRN (Reason: nausea and vomiting) Qty: 30 0RF Follow-up/Referrals: aRquel,Robert Rivera [Other]
--- OUTSIDE RECORDS SUMMARY | 2024-10-02 11:34 | XMS_ITS | Clinical Summary ---
Author Organization [facility] Team Providers Care Elevator Supervisor Name Role Phone Unavailable Primary Care Provider [...]
--- OUTSIDE RECORDS SUMMARY | 2024-10-02 11:34 | XMS_ITS ---
Author Organization [facility] Address [address] [place], [place] [id number] Care Team Providers Care Block Hand Name Role Phone KENYON FORREST Unavailable [phone] Darci Woody Unavailable Unavailable Allergies No Known Allergies REASON FOR VISIT *Surgery consult bunion Medications Medication SIG (Take, Route, Frequency, Duration) Notes Start Date End Date Status Medrol 4 MG as directed Orally 04/24/2024 Active Encounters Encounter Location Date Provider Diagnosis [facility] [place] [address] [place], [place] [id number] 08/14/2024 KENYON FORREST Tailor's bunion of right [...] right foot Next Appt Details Provider Name:KENYON Moya JULIO SPIVEY, 10/23/2024 01:30:00 PM, [address], [place], [address], Provider Name:KENYON Moya JULIO SPIVEY, 10/30/2024 08:40:00 AM, [address], [facility], [place], [place], [id number], Progress Notes * ANGELICA BLACK LDOB: 0 (44 yo F)Acc No.[id number]:08/14/2024 Patient: Michael ANGELICA VIDALES Provider: Kan Forrest DPM :1980 A ge:44 Y S ex:Female Date:08/14/2024 Address:[address] [place] [address] , [id number] Subjective: * Chief Complaints: * * Surgery consult bunion * HPI: H PI: [facility] to discuss surgery [...] RT * Billing Information: * Visit Code: 81953 Office Visit, Est Pt., Level 4. * Procedure Codes: 80396 X-RAY EXAM OF FOOT. Modifiers: RT * GAGE PROCESSOR Sign off status: Completed true * Provider: Kan Forrest DPM Date: 0 08/14/2024 Generated for Dalia grace/Valeri/Ashwiniitting on: 0 10/02/2024 11:34 AM CDT History and Physical Notes * [...]
--- OUTSIDE RECORDS SUMMARY | 2024-10-02 11:34 | XMS_ITS | Data Portability ---
Author Organization [place] - [facility] [place] [facility] Address [address] [place] [address] Care Team Providers Care Vehicle Fuel Systems Converter Name Role Phone [place] Primary Care Provider Assessment Encounter Date Assessment Date Assessment LastModified [...] tablet 2022 023 [facility], [address] [place] [address], [id number], 06/04/2023 10:27:07 Lipitor 80 mg tablet 2022 023 [facility] #[id number], [address], [place], [id number], 06/04/2023 10:27:11 Bystolic 5 mg tablet 2022 023 [facility], [address] [place] [address], [id number], 06/04/2023 10:27:08 Lasix 40 mg tablet 2022 023 [facility], [address] [place] [address], [id number], 06/04/2023 10:27:08 Lasix 20 mg tablet 2022 023 [facility] #[id number], [address], [place], [id number], 02/06/2023 18:37:03 Patient TargetsNo targets recorded. Patient Instructions Encounter Date Encounter Id Patient Instructions Last Modified By Organization Details Last Modified Time 06/04/2023 [id number] Low cholesterol diet advised Low sodium diet advised. eyassin Not available 06/04/2023 10:26:59 12/06/2023 [id number] Low cholesterol diet advised Low sodium diet advised. eyassin Not available 12/06/2023 10:38:58 Reason for Referral None Reported. Results Created Date Observation Date Name Description Value Unit Range Abnormal Flag Note LastModifiedBy Organization Detail LastModifiedTime 02/08/2002/06/2023 elect julianne lozagr am No observ ation record ed. [email or web address] Not Available 2022 11:05:46 05/03/2003/24/2023 fbaby can cardi olite stres s test (PROC ) No observ ation record ed. [email or web address] Not Available 2022 14:51:42 07/27/1907/23/2023 , echo ardio gram No observ ation record ed. est [facility] [address], [place], [address], 08/05/2023 14:55:01 12/11/19 24 12/06/2023 elect rocar diogr am No observ ation record ed. [email or web address] Not Available 2023 18:13:40 06/03/20 24 06/03/2024 elect julianne mcmahon am No observ ation record ed. [email or web address] Not Available 2023 18:04:05 Result Notes None recorded. Problems Name Problem SNOMED Code Status Onset Date Resolution Date Notes Provider Name and Address Organization Details Recorded Time Edema 410850907 Active 2022 Cooper Mesto null, [place] - [facility] 3 12:39:45 Atypical chest pain 195253719 Active 2022 Cooper M[place], [place] - [facility] 3 12:39:54 Dyspnea on exertion 65058450 Active 2022 Cooper Mesto [place], [place] - [facility] 3 12:40:00 Dyslipidemia 154575958 Active 2023 Cooper M[place], [place] - [facility] 4 19:58:53 Essential hypertension 55459790 Active 2023 Cooper M[place], [place] - [facility] 4 19:59:11 History of cerebrovascula r accident 631978301 Active 2023 Cooper Mesto null, [place] - [facility] 4 19:59:27 Problem Notes None recorded. Procedures Surgical History Date Name Laterality Status Provider Name and Address Organization Details Recorded Time operation on stomach completed Kenneth Messally [place] - [facility] 05/25/2023 12:52:55 Imaging Results Imaging Date Name Status LastModified by Organization Details LastModified Time 02/06/2023 electrocardiogram completed Informa tion not available 02/07/2023 11:05:46 03/24/2023 lexiscan cardiolite stress test (PROC) completed Information not available 05/03/2023 14:51:42 07/23/2023 , echocardiogram completed [facility] [address], [place], [address], 08/05/2023 14:55:01 12/06/2023 electrocardiogram completed [email or web address] Informa tion not available 12/18/2023 18:13:40 06/03/2024 [...] Updated DateTime 3 177.8 cm 45.6 kg/m2 516401. 37 g 102 /min 18 /min 93 % 93 % Zen Roche [facility] 3 18:10:41 Date Recorded Body height Heart rate Oxygen saturation Oxygen saturation in Arterial blood by Pulse oximetry Body mass index (BMI) Body weight Systolic blood pressure Diastolic blood pressure Provider Name and Address Organization Details Last Updated DateTime 3 177.8 cm 84 /min 87 % 87 % 42.9 kg/m2 323831. 12 g 139 mm[Hg] 86 mm[Hg] Fay Carrero [facility] 3 09:40:23 Date Recorded Body height Body mass index (BMI) Body weight Heart rate Oxygen saturation Oxygen saturation in Arterial blood by Pulse oximetry Systolic blood pressure Diastolic blood pressure Provider Name and Address Organization Details Last Updated DateTime 4 177.8 cm 41.1 kg/m2 426685. 93 g 76 /min 97 % 97 % 108 mm[Hg] 72 mm[Hg] Kady Lolly [facility] 4 10:18:10 Date Recorded Body height Body mass index (BMI) Body weight Heart rate Oxygen saturation Oxygen saturation in Arterial blood by Pulse oximetry Systolic blood pressure Diastolic blood pressure Provider Name and Address Organization Details Last Updated DateTime 4 177.8 cm 40.3 kg/m2 539152. 46 g 107 /min 95 % 95 % 151 mm[Hg] 97 mm[Hg] Fay Carrero [facility] 4 11:41:36 Social History None recorded. Functional Status None recorded. Mental Status None recorded. Family History Nothing Reported. Medical History No medical history recorded. Gynecological HistoryNo gynecological history recorded. Obstetrics History GPAL:G 0 P 0 0 0 0 Past Encounters Encounter ID Performer Location Encounter Start Date Encounter Closed Date Diagnosis/Indication Diagnosis SNOMED-CT Code Diagnosis ICD10 Code Diagnosis Note [id number] Sixto Feldman MD [place] [facility] [address] [place] [address] 02/06/2023 17:16:06 02/06/2023 18:36:32 Edema 677380918 R60.9 will start lasix 20 mg dailywe might consider jardiance in the future Atypical chest pain 1025 05924 R07.89 Treadmill Myoview Stress test, has high [place] Risk score. Has Known CAD, or CAD risk equivalent . To look for any ischemia. Dyspnea on exertion 6084 5006 R06.09 will do echo to the see the structure of the heart [id number] [facility] OFF[facility] [place] [address] 06/04/2023 09:27:03 06/04/2023 10:31:41 Edema 654740286 R60.9 continue lasix 40 mg dailywe might consider jardiance in the future Dyspnea on exertion 6084 5006 R06.09 will do echo to the see the structure of the heart Atypical chest pain 1025 32194 R07.89 negative stress test 3contin ue with monitoring continue with baby aspirin Dyslipidemia 778967751 E 78.5 *Last LDL was 107 done on 03/29/23.P t takes lipitor 80 mg daily.will start her on zetia 10 mg dailyTG Is 223 done 03/2023 add fish oil BID daily Essential hypertension 15042262 I10 BP mildly elevated today, she will bring number with her next timecontin ue with bystolic 5 mg daily History of cerebrovascular accident 347573082 Z86.73 continue with aspirin [id number] [facility] [place] [address] 12/06/2023 10:00:34 12/06/2023 10:41:39 Edema 919655418 R60.9 continue lasix 40 mg daily Dyslipidemia 237891028 E 78.5 *Last LDL was 107 done on 03/29/23.P t takes lipitor 80 mg daily.cont inue with zetia 10 mg dailyTG Is 223 done 03/2023 continue fish oil BID dailyrepea t lipid panel Essential hypertension 48176446 I10 BP is well controlled continue with bystolic 5 mg daily History of cerebrovascular accident 849619407 Z86.73 continue with aspirin [id number] Sixto Feldman MD [place] [facility] [place] [address] 06/03/2024 11:18:39 06/03/2024 12:28:23 Edema 963490838 R60.9 continue lasix 40 mg daily Dyslipidemia 231810380 E 78.5 *Last LDL was 107 done on 03/29/23.P t takes lipitor 80 mg daily.cont inue with zetia 10 mg dailyTG Is 223 done 03/2023 continue fish oil BID dailyrepea t lipid panel Essential hypertension 84057867 I10 BP is well controlled continue with bystolic 5 mg daily History of cerebrovascular accident 808943703 Z86.73 continue with aspirin Health Concerns Section Related Observation LastModified by Organization Detai ls LastModified Time None Recorded Concern Status LastModified by Organization Details LastModified Time None Recorded Advance Directives Directive None Recorded Payers Encounter Date Sequence Insurance Name Policy Number Policy Wilks Covered Member ID Wilks Member ID Guarantor Name 02/06/2023 2 [employer] () Holly Debby [id number] Holly RandallDebby 06/04/2023 2 [employer] () Holly Debby [id number] Holly RandallDebby 06/04/2023 1 [place] [id number] Damir S Debby [id number] Holly RandallDebby 12/06/2023 2 [employer] [place] () Holly Debby [id number] Holly Debby 12/06/2023 1 [place] [id number] Damir S Debby [id number] Holly Debby 06/03/2024 2 [employer] [place] () Holly Debby [id number] Holly RandallDebby 06/03/2024 1 [place] [id number] Damir S Debby [id number] Holly Black Notes Date Note Type Note [...] .Pt takes. Sixto Feldman MD [address] [place], [address], [facility] 02/06/2023 18:37:01 06/04/2023 [...] 0.70 BUN 11 GL 93 CA 9.7,CK Total-159,GDHE9I-2.3,L IPID-CHOL 187 HDL 42 LDL 107 TRIG [...] 0.70 BUN 11 GL 93 CA 9.7,CK Total-159,ZHOE6S-3.3,L IPID-CHOL 187 HDL 42 LDL 107 TRIG 223 *Had Adequate Stress with Lexiscan on 03/24/23 with Normal LV systolic function. LVEF: 60%. She occasional with chest pain and dyspnea on exertion. SEAN hong, [place] - [facility] 12/06/2023 10:39:03 06/03/2024 text/html CC [...] systolic function. LVEF: 60%. Sixto Feldman MD [address] [place], [address], [facility] - [facility] 06/03/2024 12:24:17 OBGyn Episode No OBEpisode recorded.
--- OUTSIDE RECORDS SUMMARY | 2024-10-02 11:34 | XMS_ITS | Clinical Summary ---
Author Organization [address] Address [address] [place] [phone] Care Team Providers Care Claim Agent Name Role Phone Saul Ruelas MD Primary Care Provider [phone] Abiodun Red MD Unavailable [phone] Issac Amador MD Unavailable [phone] Allergies No known active allergies Medications [...] seen Assessment & Plan (09/01/2024 12:03 PM POINTING MACHINE OPERATOR): 44-year-old female with PMHx of [...] dosing due to hx GERD. Will contact senior financial for records. Follow up in 2 weeks. Sooner if needed. Seen with Dr. Amador. TONY (obstructive sleep apnea) 10/05/2020 Assessment & Plan (07/01/2024 10:25 AM POINTING MACHINE OPERATOR): Patient continue with CPAP at 8 cm water pressure while sleeping. She was intolerable of higher pressures in the past. DME is [employer]. Assessment & Plan (06/28/2023 11:59 AM POINTING MACHINE OPERATOR): Due to continued symptoms, the patient will continue CPAP at 8 cm water pressure. The patient has an elevated AHI, however she is intolerant of higher pressure. Denied need for supplies. DME [employer] Assessment & Plan (06/27/2022 12:02 PM POINTING MACHINE OPERATOR): Patient continue to wear CPAP at 8 cm water pressure while sleeping. Her DME is [employer]. The patient did not tolerate an increase in her pressures in the past. Assessment & Plan (06/30/2021 11:05 AM POINTING MACHINE OPERATOR): Patient continue to wear CPAP [...] patient denied need for supplies. DME company [email or web address]. The patient and I discussed the recall [...] 10/05/2020 Assessment & Plan (07/01/2024 10:25 AM POINTING MACHINE OPERATOR): The patient continues with Lunesta 3 mg on most nights. Assessment & Plan (06/28/2023 11:58 AM POINTING MACHINE OPERATOR): Due to continued symptoms, the patient will continue Lunesta 3 mg nightly. I have refilled the medication and will refill for 1 year Patient is aware that she should wear her CPAP machine if taking the medication. Assessment & Plan (06/27/2022 12:02 PM POINTING MACHINE OPERATOR): The patient will continue with Lunesta 3 mg p.o. at bedtime to treat insomnia. Assessment & Plan (06/30/2021 11:04 AM POINTING MACHINE OPERATOR): The patient will continue with [...] Department Care Team Description 09/16/2024 Orders Only [facility] [address] [place] [phone] Vicenta Early PA 09/08/2024 10:21 AM POINTING MACHINE OPERATOR - 09/08/2024 11:59 PM POINTING MACHINE OPERATOR Hospital Encounter [facility] [address] [place] [phone] Sicca complex; Polyarthralgia Discharge Disposition: Discharge to home or self care 09/08/2024 Results Follow-Up [facility] [address] [place] [phone] Issac Amador MD 09/01/2024 10:30 AM POINTING MACHINE OPERATOR Office Visit [facility] [address] [place] [phone] Vicenat Early PA Sicca complex (Primary Dx); Polyarthralgia 09/01/[address] [address] Vicenta Early PA from Last [...] on file Legal Sex Female 9:00 AM POINTING MACHINE OPERATOR Gender Identity Female 09/06/2024 3:20 PM POINTING MACHINE OPERATOR Sexual Orientation Not on file Obstetrics History Last Filed Vital Signs Vital Sign Reading Time Taken Comments Blood Pressure 134/76 09/01/2024 10:16 AM POINTING MACHINE OPERATOR Pulse 106 09/01/2024 10:16 AM POINTING MACHINE OPERATOR Temperature 36.4 C (97.6 F) 07/01/2024 9:59 AM POINTING MACHINE OPERATOR Respiratory Rate 18 07/01/2024 9:59 AM POINTING MACHINE OPERATOR Oxygen Saturation 96% 09/01/2024 10:16 AM POINTING MACHINE OPERATOR Inhaled Oxygen Concentration - - Weight 127 kg (280 lb) 09/01/2024 10:16 AM POINTING MACHINE OPERATOR Height 177.8 cm (5' 10 ) 09/01/2024 10:16 AM POINTING MACHINE OPERATOR Body Mass Index 40.18 09/01/2024 10:16 AM POINTING MACHINE OPERATOR Plan of Treatment Health Maintenance Due [...] Comments SCAN - RADIOLOGY/IMAGING 09/16/2024 4:34 PM POINTING MACHINE OPERATOR US HAND COMPLETE Schedule Routine, Read Routine (OP Routine) 09/08/2024 11:12 AM POINTING MACHINE OPERATOR Sicca complex Polyarthralgia ERYTHROCYTE SEDIMENTATION RATE Routine 09/01/2024 11:37 AM POINTING MACHINE OPERATOR Sicca complex Polyarthralgia CRP (ACUTE PHASE) Routine 09/01/2024 11: 37 AM POINTING MACHINE OPERATOR Sicca complex Polyarthralgia COMPREHENSIVE METABOLIC PANEL Routine 09/01/2024 11:37 AM POINTING MACHINE OPERATOR Sicca complex Polyarthralgia CBC WITH AUTO DIFFERENTIAL Routine 09/01/2024 11:37 AM POINTING MACHINE OPERATOR Sicca complex Polyarthralgia MISCELLANEOUS LAB TEST Routine 09/01/2024 10:09 AM POINTING MACHINE OPERATOR Sicca complex Polyarthralgia from Last 3 Months Results * SCAN - RADIOLOGY/IMAGING (09/16/2024 4:34 PM POINTING MACHINE OPERATOR) Anatomical Region Laterality Modality Other Vicenta LANDA Final Result * US Hand Complete (09/08/2024 11:12 AM POINTING MACHINE OPERATOR) Anatomical Region Laterality Modality Hand N/A Ultrasound Issac Amador MD [facility] [place] US PROCEDURES Final Result * (ABNORMAL) CBC with auto differential (09/01/2024 11:37 AM POINTING MACHINE OPERATOR) [facility] WBC 7.9 3.8 - 10.8 Thousand/u L [...] [facility] Blood 09/01/2024 11:3 7 AM POINTING MACHINE OPERATOR 09/01/2024 11:37 AM POINTING MACHINE OPERATOR Issac Amador MD LAB BLOOD ORDERABLES Final Res ult Performing Organization Address [facility]/ZIP Co de Phone Number [facility] [address] [place] [address] * Erythrocyte sedimentation rate (09/01/2024 11:37 AM POINTING MACHINE OPERATOR) Erythrocyte sedimentation rate 9 < OR = 20 mm/h [facility] Blood 09/01/2024 11:3 7 AM POINTING MACHINE OPERATOR 09/01/2024 11:37 AM POINTING MACHINE OPERATOR Issac Amador MD LAB BLOOD ORDERABLES Final Res ult Performing Organization Address [facility] Co de Phone Number [facility] [address] [place] [address] * CRP (acute phase) (09/01/2024 11:37 AM POINTING MACHINE OPERATOR) C-RP <3.0 <8.0 mg/L [facility] Blood 09/01/2024 11:3 7 AM POINTING MACHINE OPERATOR 09/01/2024 11:37 AM POINTING MACHINE OPERATOR Issac Amador MD LAB BLOOD ORDERABLES Final Res ult Performing Organization Address [facility] Co de Phone Number [facility] [address] [place] [address] * Comprehensive metabolic panel (09/01/2024 11:37 AM POINTING MACHINE OPERATOR) Glucose 71 65 - 99 [...] [facility] Blood 09/01/2024 11:3 7 AM POINTING MACHINE OPERATOR 09/01/2024 11:37 AM POINTING MACHINE OPERATOR Issac Amador MD LAB BLOOD ORDERABLES Final Res ult [facility] [address] [place] [address] * AVISE CTD - Miscellaneous Test (09/01/2024 10:09 AM POINTING MACHINE OPERATOR) Miscellaneous Issac Amador MD LAB BLOOD ORDERABLES Final Res ult EXTERNAL LAB from Last 3 Months Insurance [facility] [address] [place] [address] [place] [facility] [address] [place] [address] [place] [facility] Care Teams Claim Agent Relationship Specialty Start Date End Date Saul Ruelas MD PCP - General Family Medicine 08/25/20 Abiodun Red MD [address] [place] [address] Referring Physician Neurology 11/27/22 Issac Amador MD [facility] [place] [address] Consulting Physician Rheumatology 1/8/25
--- OUTSIDE RECORDS SUMMARY | 2024-10-02 11:34 | XMS_ITS | Encounter Summary ---
Author Organization [facility] Address [address] [place] [address] Care Team Providers Care Logistics Assistant Name Role Phone Saul Ruelas MD Primary Care Provider [phone] Robert García MD Primary Care Provider + Encounter Details Date Type Department Care Team (Late st Contact Info) Description 10/12/2020 Prep for Procedure [facility] [place] [address] [id number] Sujey Yap, NIA [address] [place] [phone] Social History Tobacco Use Types Packs/Day Years [...] Legal Sex Female 9:56 AM ACCOUNTS RECEIVABLE ANALYST Gender Identity Not on file Sexual Orientation [...] Description 12/03/2024 10:00 AM CDT Office Visit [facility] Multispec[facility] - [facility] [address] [facility], [address] [place] [address] Abiodun Red MD [address] [facility] [place] [address] documented as of this encounter Visit Diagnoses Not on filedocumented in this encounter Care Teams Logistics Assistant Relationship Specialty Start Date End Date Saul Ruelas MD 3 [facility] [address] [place] [phone] PCP - General FAMILY PRACTICE 10/12/20 08/16/23 Robert García MD 3 [facility] [address] [place] [phone] PCP - General 08/17/23 documented as of this encounter
--- OUTSIDE RECORDS SUMMARY | 2024-10-02 11:34 | XMS_ITS ---
Author Organization [facility] Address [address] [place], [place] [address] Care Team Providers Care Photographic Printer Name Role Phone KENYON FORREST Unavailable [phone] Darci Woody Unavailable Unavailable Allergies No Known Allergies REASON FOR VISIT *Injection follow-up Medications Medication SIG (Take, Route, Frequency, Duration) Notes Start Date End Date Status Medrol 4 MG as directed Orally 04/24/2024 Active Encounters Encounter Location Date Provider Diagnosis [facility] [place] [address] [address] [place], [place] [id number] 07/24/2024 KENYON OFRREST Tailor's bunion of right foot M21.621 ; [...] time. Next Appt Details Provider Name:KENYON SPIVEY, 10/23/2024 01:30:00 PM, [address], [place], [address], Provider Name:KENYON SPIVEY, 10/30/2024 08:40:00 AM, [address], [facility] [address], [place], [place], [phone], Progress Notes * ANGELICA BLACK LDOB: 0 (44 yo F)Acc No.[id number]:07/24/2024 Patient: Michael ANGELICA VIDALES Estefany Provider: Kan Forrest DPM :1980 A ge:44 Y S ex:Female Date:07/24/2024 Address:[address] [place] [address] , [id number] Subjective: * Chief Complaints: * * Injection [...] RT * Billing Information: * Visit Code: 21967 Office Visit, Est Pt., Level 3. Modifiers: 25 * Procedure Codes: DRAIN/INJECT, JOINT/BURSA. Modifiers: RT * NTORY COORDINATOR Sign off status: Completed true * Provider: Kan Forrest DPM Date: 0 07/24/2024 Generated for Dalia grace/Valeri/Ashwiniitting on: 0 10/02/2024 [...]
--- OUTSIDE RECORDS SUMMARY | 2024-10-02 11:34 | XMS_ITS | Encounter Summary ---
Author Organization [facility] Address [address] [place] [address] Care Team Providers Care Personnel Coordinator Name Role Phone Robert García MD Primary Care Provider + Encounter Details Date Type Department Care Team (Late Contact Info) Description 01/22/2024 Room 21 Media Message Enc [facility] - [address], [address] [place] [phone] [employer], [facility] Provider prescription Social History Tobacco Use Types [...] on file Legal Sex Female 9:56 AM UX ENGINEER Gender Identity Not on file Sexual Orientation Not on file documented as of this encounter Plan of Treatment Upcoming Encounters Date Type Department Care Team (Late Contact Info) Description 12/03/2024 10:00 AM CDT Office Visit [facility] - [address], [address] [place] [phone] Abiodun Red MD [address] [place] [address] documented as of this encounter Visit Diagnoses Not on filedocumented in this encounter Additional Health Concerns Assessment Noted Time PHQ-9 Depression Total Score: 7 06/02/20 22 9:57 AM UX ENGINEER documented as of this encounter Care Teams Personnel Coordinator Relationship Specialty Start Date End Date Robert García MD 3 [facility] [address] [place] [phone] PCP - General 08/17/23 documented as of this encounter
--- OUTSIDE RECORDS SUMMARY | 2024-10-02 11:34 | XMS_ITS | Referral Summary ---
Author Organization [address] Address [address] [address] Care Team Providers Care Computerized Mill Mill Recorder Name Role Phone Saul Ruelas MD Primary Care Provider + [phone] Abiodun Red MD Unavailable [phone] Issac Amador MD Unavailable [phone] Encounters Date Type Department Care Team Description 09/16/2024 Orders Only [facility] [address] [place] [phone] Vicenta Early PA 09/08/2024 Results Follow-Up [facility] [address] [place] [phone] Issac Amador MD 09/08/2024 10:21 AM POWER OPERATOR - 09/08/2024 11:59 PM POWER OPERATOR Hospital Encounter [address] [phone] Sicca complex; Polyarthralgia Discharge Disposition: Discharge to home or self care 09/01/[address] [phone] Vicenta Early PA 09/01/2024 10:30 AM POWER OPERATOR Office Visit [facility] [address] [place] [phone] Vicenta Early PA Sicca complex (Primary Dx); [...] seen Assessment & Plan (09/01/2024 12:03 PM POWER OPERATOR): 44-year-old female with PMHx of HTN, [...] dosing due to hx GERD. Will contact amusement or recreation card checker for records. Follow up in 2 weeks. Sooner if needed. Seen with Dr. Amador. TONY (obstructive sleep apnea) 10/05/2020 Assessment & Plan (07/01/2024 10:25 AM POWER OPERATOR): Patient continue with CPAP at 8 cm water pressure while sleeping. She was intolerable of higher pressures in the past. DME is [employer]. Assessment & Plan (06/28/2023 11:59 AM POWER OPERATOR): Due to continued symptoms, the patient will continue CPAP at 8 cm water pressure. The patient has an elevated AHI, however she is intolerant of higher pressure. Denied need for supplies. DME [employer] Assessment & Plan (06/27/2022 12:02 PM POWER OPERATOR): Patient continue to wear CPAP at 8 cm water pressure while sleeping. Her DME is [employer]. The patient did not tolerate an increase in her pressures in the past. Assessment & Plan (06/30/2021 11:05 AM POWER OPERATOR): Patient continue to wear CPAP at 8 cm water pressure while sleeping. Her DME is [employer]. The patient is already registered her CPAP [...] patient denied need for supplies. DME company [employer]. The patient and I discussed the recall [...] open while sleeping. The DME company is [employer]. The patient is benefitting from CPAP therapy. Other insomnia 10/05/2020 Assessment & Plan (07/01/2024 10:25 AM POWER OPERATOR): The patient continues with Lunesta 3 mg on most nights. Assessment & Plan (06/28/2023 11:58 AM POWER OPERATOR): Due to continued symptoms, the patient will continue Lunesta 3 mg nightly. I have refilled the medication and will refill for 1 year Patient is aware that she should wear her CPAP machine if taking the medication. Assessment & Plan (06/27/2022 12:02 PM POWER OPERATOR): The patient will continue with Lunesta 3 mg p.o. at bedtime to treat insomnia. Assessment & Plan (06/30/2021 11:04 AM POWER OPERATOR): The patient will continue with Lunesta [...] on file Legal Sex Female 9:00 AM POWER OPERATOR Gender Identity Female 09/06/2024 3:20 PM POWER OPERATOR Sexual Orientation Not on file Last Filed Vital Signs Vital Sign Reading Time Taken Comments Blood Pressure 134/76 09/01/2024 10:16 AM POWER OPERATOR Pulse 106 09/01/2024 10:16 AM POWER OPERATOR Temperature 36.4 C (97.6 F) 07/01/2024 9:59 AM POWER OPERATOR Respiratory Rate 18 07/01/2024 9:59 AM POWER OPERATOR Oxygen Saturation 96% 09/01/2024 10:16 AM POWER OPERATOR Inhaled Oxygen Concentration - - Weight 127 kg (280 lb) 09/01/2024 10:16 AM POWER OPERATOR Height 177.8 cm (5' 10 ) 09/01/2024 10:16 AM POWER OPERATOR Body Mass Index 40.18 09/01/2024 10:16 AM POWER OPERATOR Plan of Treatment Not on file Procedures Procedure Name Priority Date/Time Associated Diagnosis Comments SCAN - RADIOLOGY/IMAGING 09/16/2024 4:34 PM POWER OPERATOR US HAND COMPLETE Schedule Routine, Read Routine (OP Routine) 09/08/2024 11:12 AM POWER OPERATOR Sicca complex Polyarthralgia ERYTHROCYTE SEDIMENTATION RATE Routine 09/01/2024 11:37 AM POWER OPERATOR Sicca complex Polyarthralgia CRP (ACUTE PHASE) Routine 09/01/2024 11: 37 AM POWER OPERATOR Sicca complex Polyarthralgia COMPREHENSIVE METABOLIC PANEL Routine 09/01/2024 11:37 AM POWER OPERATOR Sicca complex Polyarthralgia CBC WITH AUTO DIFFERENTIAL Routine 09/01/2024 11:37 AM POWER OPERATOR Sicca complex Polyarthralgia MISCELLANEOUS LAB TEST Routine 09/01/2024 10:09 AM POWER OPERATOR Sicca complex Polyarthralgia from Last 3 Months Results * SCAN - RADIOLOGY/IMAGING (09/16/2024 4:34 PM POWER OPERATOR) Anatomical Region Laterality Modality Other Vicenta LANDA Final Result * US Hand Complete (09/08/2024 11:12 AM POWER OPERATOR) Anatomical Region Laterality Modality Hand N/A Ultrasound Issac Amador MD [facility] US PROCEDURES Final Result * (ABNORMAL) CBC with auto differential (09/01/2024 11:37 AM POWER OPERATOR) WBC 7.9 3.8 - 10.8 Thousand/u [...] [facility] Blood 09/01/2024 11:3 7 AM POWER OPERATOR 09/01/2024 11:37 AM POWER OPERATOR Issac Amador MD LAB BLOOD ORDERABLES Final Res ult Performing Organization Address City/[facility]/ZIP Co de Phone Number [facility] [address] [place] [address] * Erythrocyte sedimentation rate (09/01/2024 11:37 AM POWER OPERATOR) Erythrocyte sedimentation rate 9 < OR = 20 mm/h [facility] Blood 09/01/2024 11:3 7 AM POWER OPERATOR 09/01/2024 11:37 AM POWER OPERATOR Issac Amador MD LAB BLOOD ORDERABLES Final Res ult Performing Organization Address City/[facility]/ZIP Co de Phone Number [facility] [address] [place] [address] * CRP (acute phase) (09/01/2024 11:37 AM POWER OPERATOR) C-RP <3.0 <8.0 mg/L [facility] Blood 09/01/2024 11:3 7 AM POWER OPERATOR 09/01/2024 11:37 AM POWER OPERATOR us Issac Amador MD LAB BLOOD ORDERABLES Final Res ult [facility] [address] [place] [address] * Comprehensive metabolic panel (09/01/2024 11:37 AM POWER OPERATOR) Glucose 71 65 - 99 mg/dL [...] [facility] Blood 09/01/2024 11:3 7 AM POWER OPERATOR 09/01/2024 11:37 AM POWER OPERATOR Issac Amador MD LAB BLOOD ORDERABLES Final Res ult [facility] [address] [place] [address] * AVISE CTD - Miscellaneous Test (09/01/2024 10:09 AM POWER OPERATOR) Miscellaneous Issac Amador MD LAB BLOOD ORDERABLES Final Res ult EXTERNAL LAB from Last 3 Months Insurance [facility] [address] [place] [address] Erly [facility] [address] [place] [address] [place] [facility] Care Teams Computerized Mill Mill Recorder Relationship Specialty Start Date End Date Saul Ruelas MD PCP - General Family Medicine 08/25/20 Abiodun Red MD [address] [place] [address] Referring Physician Neurology 11/27/22 Issac Amador MD [address] [place] [address] Consulting Physician Rheumatology 07/23/24
--- OUTSIDE RECORDS SUMMARY | 2024-10-02 11:34 | XMS_ITS | Encounter Summary ---
Author Organization [facility] Address [address] [place] [address] Phone Care Team Providers Care Sustainability Specialist Name Role Phone Saul Ruelas MD Primary Care Provider [phone] Abiodun Red MD Unavailable [phone] Issac Amador MD Unavailable [phone] Encounter Details Date Type Department Care Team (Late st Contact Info) Description 09/08/2024 Results Follow-Up [facility] [address] [place] [phone] Issac Amador MD [address] [place] [address] Social History Tobacco Use Types Packs/Day [...] on file Legal Sex Female 9:00 AM BEAD SUPERVISOR Gender Identity Female 09/06/2024 3:20 PM BEAD SUPERVISOR Sexual Orientation Not on file documented as of this encounter Plan of Treatment Not on file documented as of this encounter Visit Diagnoses Not on filedocumented in this encounter Care Teams Sustainability Specialist Relationship Specialty Start Date End Date Saul Ruelas MD PCP - General Family Medicine 08/25/20 Abiodun Red MD [address] [place] [address] Referring Physician Neurology 11/27/22 Issac Amador MD [address] [place] [address] Consulting Physician Rheumatology 07/23/24 documented as of this encounter
--- OUTSIDE RECORDS SUMMARY | 2024-10-02 11:35 | XMS_ITS | Patient Health Record ---
Author Organization [facility] Address [address] [place], [place] [id number] Care Team Providers Care Parking Analyst Name Role Phone KENYON HARRIS Unavailable [phone] Darci Woody Unavailable Unavailable Allergies No Known Allergies Reason For Referral Reason [facility] REFERRAL ( S URGERY ) [id number] 1 UNIT / [facility]. STONE / [facility] K[facility] Diagnosis 1 Tailor's bunion of r ight foot (M21.621) Referred Organization [facility] Referred Provider KENYON HARRIS Referred Address [address],[place], [id number], Referred Provider Specialty Podiatry Referral Priority Routine Medications Medication SIG (Take, Route, Frequency, Duration) Notes Start Date End Date Status Medrol 4 MG as directed Orally 04/24/2024 Active Vital Signs Height-cm 177.80 cm 04/24/2024 Weight-kg 113.4 kg 04/24/2024 Height 70.00 in 04/24/2024 Weight 250 lbs 04/24/2024 BMI 35.87 kg/m2 04/24/2024 Encounters Encounter Location Date Provider Diagnosis [facility] [place] [address] [place], [place] [id number] 04/24/2024 KENYON HARRIS Tailor's bunion of right foot M21.621 ; Bunionette of left foot M21.622 and Pain in right foot M79.671 [facility] [place] [address] [place], [place] [id number] 05/22/2024 KENYON HARRIS Tailor's bunion of right foot M21.621 ; Bunionette of left foot M21.622 ; Pain in right foot M79.671 and Left foot pain M79.672 [facility] [place] [address] [place] [id number] 06/26/2024 KENYON STEVEN Tailor's bunion of right foot M21.621 ; Bunionette of left foot M21.622 ; Pain in right foot M79.671 and Left foot pain M79.672 [facility] [place] [address] [place] [id number] 07/24/2024 KENYON HARRIS Tailor's bunion of right foot M21.621 ; Bunionette of left foot M21.622 ; Pain in right foot M79.671 and Left foot pain M79.672 [facility] [place] [address] [place] [id number] 08/14/2024 KENYON STEVEN Tailor's bunion of right foot M21.621 and Pain in right foot M79.671 [facility] [address] [facility] [address] [place], [place] [phone] 10/01/2024 KENYON HARRIS Assessments Encounter Date Diagnosis (ICD Code) Assessment [...] Treatment Next Appt Details Provider Name:KENYON SPIVEY, 10/23/2024 01:30:00 PM, [address], [address], Provider Name:KENYON KIM PATRIC, 10/30/2024 08:40:00 AM, [address], [facility] [address], [place], [place], [phone], Insurance Providers Payer Name Payer Address Payer Phone Subscriber Number Group Number Insured Name Patient Relationship to Insured Coverage Start Date Coverage End Date [facility] ([facility]) ATTN CLAIMS [address] [place] [address] [id number] ANGELICA BLACK Self - patient is the insured for Life ([employer]) [address] [place], [place] [phone] [id number] ANGELICA BLACK Self - patient is the insured 3
--- OUTSIDE RECORDS SUMMARY | 2024-10-02 11:35 | XMS_ITS ---
Author Organization [facility] Address [address] [place], [place] [phone] Care Team Providers Care Household Appliances Service Technician Name Role Phone KENYON HARRIS Unavailable [phone] Darci Woody Unavailable Unavailable REASON FOR VISIT surgery Encounters Encounter Location Date Provider Diagnosis [facility] [address] [place], [place] [phone] 10/01/2024 KENYON HARRIS Plan Of Treatment Next Appt Details Provider Name:KENYON SPIVEY, 10/23/2024 01:30:00 PM, [address], [place], [address], Provider Name:KENYON C JULIO SPIVEY, 10/30/2024 08:40:00 AM, [address], [facility], [place], [place], [phone], Progress Notes * ANGELICA BLACK LDOB: 0 (44 yo F)Acc No.[id number]:10/01/2024 Patient: Michael ANGELICA VIDALES :1980 A ge:44 Y S ex:Female [address] [place], [address] * true * Date: Generated for Printi ng/Faxing/eTransmitting on: 0 10/02/2024 11:35 AM CDT
--- OUTSIDE RECORDS SUMMARY | 2024-10-02 11:35 | XMS_ITS | Clinical Summary ---
Author Organization [facility] Address [address] [place] [address] Care Team Providers Care Plate Molder Name Role Phone Robert García MD Primary [...] Department Care Team Description 08/27/2024 11:00 AM MANAGED SECURITY SALES CONSULTANT Office Visit [facility] - [address], [address] [place] [phone] Abiodun Red MD Botox (botox 155 migraines/) 08/27/2024 Scan [facility] Scanned, [facility] 08/27/2024 Travel 08/18/2024 Telephone [facility] [address] [address] Abiodun Red MD Appointment Request 08/07/2024 Scan [facility] Scanned, [facility] 07/24/2024 Telephone [facility] [address] [address] Abiodun Red MD Orders 07/15/2024 Telephone [facility] - [address], [address] [place] [phone] Abiodun Red MD Prior Authorization ([employer]) from [...] on file Legal Sex Female 9:56 AM MANAGED SECURITY SALES CONSULTANT Gender Identity Not on file Sexual Orientation Not on file Last Filed Vital Signs Vital Sign Reading Time Taken Comments Blood Pressure 123/75 08/27/2024 11:15 AM MANAGED SECURITY SALES CONSULTANT Pulse 90 08/27/2024 11:15 AM MANAGED SECURITY SALES CONSULTANT Temperature 36.2 C (97.2 F) 06/04/2024 9:49 AM MANAGED SECURITY SALES CONSULTANT Respiratory Rate 16 10/11/2022 1:02 PM CDT Oxygen Saturation 97% 08/27/2024 11:15 AM MANAGED SECURITY SALES CONSULTANT Inhaled Oxygen Concentration - - Weight 131.1 kg (289 lb) 08/27/2024 11:15 AM MANAGED SECURITY SALES CONSULTANT Height 177.8 cm (5' 10 ) 06/04/2024 9:49 AM MANAGED SECURITY SALES CONSULTANT Body Mass Index 41.47 06/04/2024 9:49 AM MANAGED SECURITY SALES CONSULTANT Plan of Treatment Upcoming Encounters Date Type Department Care Team (Late st Contact Info) Description 12/03/2024 10:00 AM CDT Office Visit [facility] - [address], [address] [place] [address] Abiodun Red MD [address] [place] [address] Health Maintenance Due Date Last Done Comments [...] Influenza Adult (#1) 2024 06/04/2020 PHQ-2 (Physician [place]) Completed 08/27/2024 HPV Vaccines Aged Out No [...] age to complete this topic Insurance [address] [address] [facility] Care Teams Plate Molder Relationship Specialty Start Date End Date Robert García MD [address] [phone] PCP - General 08/17/23
--- OUTSIDE RECORDS SUMMARY | 2024-10-02 11:35 | XMS_ITS | Encounter Summary ---
Author Organization [facility] Address [address] [facility] [place] [address] Care Team Providers Care Land Leasing Information Clerk Name Role Phone Unavailable Primary Care Provider Unavailabl e Encounter Details Date Type Department Care Team (Late st Contact Info) Description 03/02/2022 Lab Requisition [facility] [address], [place] [address] Niles George MD [address] [place] [address] Social History Tobacco Use Types [...] AM CDT) Case Report Dermatopathology Report Case: [id number] Authorizing Provider: Niles George MD Collected: 03/02/2022 12:00 AM Ordering Location: [facility] Received: 03/02/2022 [...] determined by the Dermatopathology Laboratory at [facility], directed by Dr. Miguel Viramontes. These tests need not be, and therefore are not, approved by the [place] Food and Drug Administration. The tests are used for clinical purposes. Billing Codes Specimen Charges Stain Charges 27024 1 2 6:16 PM CDT DERMATOPATHOLOGY LABORATORY Embedded Images 2 6:16 PM CDT DERMATOPATHOLOGY LABORATORY Pathology/Cytolog y TISSUE SPECIMEN FROM SKIN / Unknown 03/02/2022 03/02/2022 5:15 PM CDT Niles George MD LAB - PATHOLOGY/CYTO LOGY ORDERABLES DERMATOPATHOLOGY LABORATORY [facility] - Department of Dermatology [address], [address] [phone] documented in this encounter Visit Diagnoses Not on filedocumented in this encounter
--- OUTSIDE RECORDS SUMMARY | 2024-10-02 11:35 | XMS_ITS | Clinical Summary ---
Author Organization [facility] Address [address] [place] [address] Care Team Providers Care Web Press Operator Name Role Phone Unavailable Primary Care Provider Unavailabl e Source Comments [facility],non-owned Affiliates and Associated Physician Practices is amultiple site organization consisting of ambulatory clinics and hospital sitesin [place], [place], [place] and [place]. This disclosure is being madepursuant to the Care Everywhere program and may not contain all information available regarding this patient. Last updated 18.[facility] [employer] Social History Tobacco Use Types Packs/Day Years [...]
[2024-10-04 07:10] LABS: Bacterial Vaginosis NEGATIVE (NEGATIVE)
== END 2024-10-02 11:51 | disposition home or self-care (01) ==
PROVIDERS: Emergency Provider Nurse Practitioner Family
DX: R10.30 Lower abdominal pain, unspecified (principal); Z87.891 Personal history of nicotine dependence
CPT/HCPCS: 81513; 87070; 99213; G0463

== ENCOUNTER 2024-10-23 01:15 | Day surgery (SDC) | payer BC, OTHER, SELFPAY ==
[2024-09-22 14:39] VITALS: BMI 37.3
--- NOTE | 2024-09-22 15:21 | PC.NURSE ---
Addendum entered by Kristopher Eckert RN 10/14/24 11:07: Patient says UTI was the reason for the reschedule but that's all better now. Denies any other changes to health history. Informed patient to arrive at 1130 on 10-23-2024 for OR at 130pm. Patient has copy of these instructions, encouraged to read it over again. Original Note: Report to the Outpatient Waiting Room, entrance under the green pavilion located off [facility], at time _0600AM on date _10/02/24 . Planned Procedure Time: __0730 .? Time changes happen often and if your time is changed the preop area will call you the afternoon before. - You and your visitor will be asked to self-screen and do not enter if you have any COVID symptoms. Please call surgeon if you need to reschedule. - A mask is optional within the hospital at this time. Patients may have clear liquids (water, carbonated beverages, clear teas, apple juice) until 3 hours prior to surgery with a maximum of 20 ounces. - No food from midnight until time of surgery and no smoking, or chewing tobacco (or any form of nicotine). No chewing gum, candy or mints. Take only the following medications with a SIP of water on the morning of surgery: _PREGABALIN, NEBIVOLOL, LEVOTHYROXINE, DULOXETINE, BUPROPRION, MIGRAIN MEDS IF NEEDED DO NOT STOP ANY OF YOUR OTHER PRESCRIPTION MEDICATIONS PRIOR TO SURGERY EXCEPT THE FOLLOWING Hold all vitamins and supplements for 3 days per anesthesiologist. Medications to discontinue per physician ASPIRIN AND MELOXICAM Date to take last dose___CONSULT DR. HARRIS Please no make-up, nail icelandic, hairspray, perfume, deodorant, or body powder the day of surgery.? No jewelry (including any body piercings) or valuables the day of surgery, leave them at home.? Please take a shower or bath the night before, or the morning of, surgery with an antibacterial soap.? Wear comfortable, loose fitting clothing.? - Jewelry must be removed prior to entering the operating room.? Rings and piercings that are not removed may be cut off. - The hospital will not accept responsibility for valuables.? - Please leave all valuables, including medications, at home the day of surgery. If you are going home after surgery, a licensed bung driver must drive you home.? - NO public transportation without another adult if you receive anesthesia. - We recommend that an adult stay with you for 24 hours following discharge. - We also recommend that you do not drive, make important decision, drink alcoholic beverages, or take any drugs that were not prescribed by your health care provider for at least 24 hours after your discharge time. Follow any additional instructions given to you from your surgeon. Telephone instructions given to _AMY and asked if any additional questions and then verbalized understanding. Patient advised to call surgeon office or pre surgery nurse liaison [phone] if any additional questions.
--- OUTSIDE RECORDS SUMMARY | 2024-10-02 01:59 | XMS_ITS | Clinical Summary ---
Author Organization [employer] Care Team Providers Care Veneer Stock Grader Name Role Phone Unavailable Primary Care Provider [...]
--- OUTSIDE RECORDS SUMMARY | 2024-10-02 01:59 | XMS_ITS | Continuity of Care Document ---
Author Organization [facility] Address [address] [place] [address] Phone Care Team Providers Care Animal Health Technician Name Role Phone Miguel Harrison PT Unavailable [...] Date Provider Providers Copied on Encounter [facility], [place], [place], [id number], tel:[phone] [place] No Information Hunter Rivera. . [facility], [place], [place], [id number], tel:[phone] [place] No Information Hunter Contreras . [facility], [address], [place], [place], [id number], tel:[phone] [place] No Information Hunter Contreras . [facility], [address], [place], [place], [id number], tel:[phone] [place] No Information Hunter Contreras . [facility], [address], [place], [place], [id number], [place] tel:[phone] [place] No Information Hunter Contreras . [facility], [address] [place] [address], [id number], tel:[phone] [place] No Information Hunter Sanabria Family History Family Member Type Diagnosis Age At Onset No Information Payers Payer name Insurance type Covered republican ID Authoriza tion(s) No Information Social History [...]
--- OUTSIDE RECORDS SUMMARY | 2024-10-02 01:59 | XMS_ITS | Encounter Summary ---
Author Organization [facility] Address [address] [place] [address] Care Team Providers Care Parole Hearing Officer Name Role Phone Robert García MD Primary Care Provider + Encounter Details Date Type Department Care Team (Late Contact Info) Description 01/22/2024 Cazoodle Message Enc [facility] - [address], [address] [place] [phone] [place], 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 Gender Identity Not on file Sexual Orientation Not on file documented as of this encounter Plan of Treatment Upcoming Encounters Date Type Department Care Team (Late Contact Info) Description 12/03/2024 10:00 AM CDT Office Visit [facility] - [address], [address] [place] [phone] Abiodun Red MD [address] [place] [address] documented as of this encounter Visit Diagnoses Not on filedocumented in this encounter Additional Health Concerns Assessment Noted Time PHQ-9 Depression Total Score: 7 06/02/20 22 9:57 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
--- OUTSIDE RECORDS SUMMARY | 2024-10-02 01:59 | XMS_ITS | Encounter Summary ---
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 Gender Identity Not on file Sexual [...] Description 12/03/2024 10:00 AM CDT Office Visit [facility] - [facility] [address] [facility], [address] [place] [address] Abiodun Red MD 3 [facility] [place] [address] documented as of this encounter Visit Diagnoses Not on filedocumented in this encounter Care Teams Thoracic Medicine Specialist Relationship Specialty Start Date End Date Saul Ruelas MD 3 [facility] [address] [place] [phone] PCP - General FAMILY PRACTICE 10/12/20 08/16/23 Robert García MD 3 [facility] [address] [place] [phone] PCP - General 08/17/23 documented as of this encounter
--- OUTSIDE RECORDS SUMMARY | 2024-10-02 01:59 | XMS_ITS | Clinical Summary ---
Author Organization [facility] Address [address] [place] [address] Care Team Providers Care Birthing Nurse Name Role Phone Unavailable Primary Care Provider Unavailabl e Source Comments [facility],non-owned Affiliates and Associated Physician Practices is amultiple site organization consisting of ambulatory clinics and hospital sitesin [place], [place], [place] and [place]. This disclosure is being madepursuant to the Care Everywhere program and may not contain all information available regarding this patient. Last updated 18.[facility] [employer] Social History Tobacco Use Types Packs/Day Years [...]
--- OUTSIDE RECORDS SUMMARY | 2024-10-02 01:59 | XMS_ITS | Referral Summary ---
Author Organization [address] Address [address] [address] Care Team Providers Care Watershed Program Manager Name Role Phone Saul Ruelas MD Primary Care Provider [phone] Abiodun Red MD Unavailable [phone] Issac Amador MD Unavailable [phone] Encounters Date Type Department Care Team Description 09/16/2024 Orders Only [facility] [address] [place] [phone] Vicenta Early PA 09/08/2024 Results Follow-Up [facility] [address] [place] [phone] Issac Amador MD 09/08/2024 10:21 AM [facility] - 09/08/2024 11:59 PM [facility] Hospital Encounter [address] [phone] Sicca complex; Polyarthralgia Discharge Disposition: Discharge to home or self care 09/01/[address] [phone] Vicenta Early PA 09/01/2024 10:30 AM [facility] Office Visit [facility] [address] [place] [phone] Vicenta Early PA Sicca complex (Primary Dx); [...] lidocaine (LIDODERM) 5 % 03/11/20 21 Active buprenorphine-na loxone (SUBOXONE) 8-[address] [...] (40 mg total) by mouth daily Active hydroxychloroqui ne (PLAQUENIL) 200 mg tablet Take 1 tablet (200 mg total) by mouth daily 08/20/19 25 Active hydrOXYzine (VISTARIL) 50 mg capsule TAKE 1 CAPSULE BY MOUTH FOUR TIMES DAILY NEEDED FOR ANXIETY Active mupirocin (BACTROBAN) 2 % ointment APPLY IN NOSE ROTATION WITH TACROLIMUS FOR NO MORE THAN 2 WEEKS AT A TIME. TAKE A FEW DAYS BEFORE RESUMING FOR FLARES. 02/05/20 25 Active tacrolimus (PROTOPIC) 0.1 % ointment [...] ER 324 mg (65 mg iron) EC tabletIndication s:Iron Deficiency Anemia Take 65 mg by mouth Active clobetasoL (TEMOVATE) 0.05 % ointment Apply topically 2 (two) times a day Active meloxicam (MOBIC) 7.5 mg tablet Take 1 tablet (7.5 mg total) by mouth daily 30 tablet 09/01/19 25 026 Active eszopiclone (LUNESTA) 3 mg tabletIndication s:Insomnia Take 1 tablet (3 mg total) by mouth daily Take immediately before bedtime 30 tablet 3 09/08/19 25 Active eszopiclone (LUNESTA) 3 mg tabletIndication s:Insomnia Take 1 tablet (3 mg total) by mouth daily Take immediately before bedtime 30 tablet 3 02/28/20 24 025 Discontin ued(Reord er) Active Problems Problem Noted Date Diagnosed Date [...] seen Assessment & Plan (09/01/2024 12:03 PM [facility]): 44-year-old female with PMHx of HTN, HLD, [...] dosing due to hx GERD. Will contact instruction librarian for records. Follow up in 2 weeks. Sooner if needed. Seen with Dr. Amador. TONY (obstructive sleep apnea) 10/05/2020 Assessment & Plan (07/01/2024 10:25 AM [facility]): Patient continue with CPAP at 8 cm water pressure while sleeping. She was intolerable of higher pressures in the past. DME is [employer]. Assessment & Plan (06/28/2023 11:59 AM [facility]): Due to continued symptoms, the patient will continue CPAP at 8 cm water pressure. The patient has an elevated AHI, however she is intolerant of higher pressure. Denied need for supplies. DME [employer] Assessment & Plan (06/27/2022 12:02 PM [facility]): Patient continue to wear CPAP at 8 cm water pressure while sleeping. Her DME is [employer]. The patient did not tolerate an increase in her pressures in the past. Assessment & Plan (06/30/2021 11:05 AM [facility]): Patient continue to wear CPAP at 8 cm water pressure while sleeping. Her DME is [employer]. The patient is already registered her CPAP [...] patient denied need for supplies. DME company [employer]. The patient and I discussed the recall [...] open while sleeping. The DME company is [employer]. The patient is benefitting from CPAP therapy. Other insomnia 10/05/2020 Assessment & Plan (07/01/2024 10:25 AM [facility]): The patient continues with Lunesta 3 mg on most nights. Assessment & Plan (06/28/2023 11:58 AM [facility]): Due to continued symptoms, the patient will continue Lunesta 3 mg nightly. I have refilled the medication and will refill for 1 year Patient is aware that she should wear her CPAP machine if taking the medication. Assessment & Plan (06/27/2022 12:02 PM [facility]): The patient will continue with Lunesta 3 mg p.o. at bedtime to treat insomnia. Assessment & Plan (06/30/2021 11:04 AM [facility]): The patient will continue with Lunesta 3 [...] on file Legal Sex Female 9:00 AM [facility] Gender Identity Female 09/06/2024 3:20 PM [facility] Sexual Orientation Not on file Last Filed Vital Signs Vital Sign Reading Time Taken Comments Blood Pressure 134/76 09/01/2024 10:16 AM [facility] Pulse 106 09/01/2024 10:16 AM [facility] Temperature 36.4 C (97.6 F) 07/01/2024 9:59 AM [facility] Respiratory Rate 18 07/01/2024 9:59 AM [facility] Oxygen Saturation 96% 09/01/2024 10:16 AM [facility] Inhaled Oxygen Concentration - - Weight 127 kg (280 lb) 09/01/2024 10:16 AM [facility] Height 177.8 cm (5' 10 ) 09/01/2024 10:16 AM [facility] Body Mass Index 40.18 09/01/2024 10:16 AM [facility] Plan of Treatment Not on file Procedures Procedure Name Priority Date/Time Associated Diagnosis Comments SCAN - RADIOLOGY/IMAGING 09/16/2024 4:34 PM [facility] US HAND COMPLETE Schedule Routine, Read Routine (OP Routine) 09/08/2024 11:12 AM [facility] Sicca complex Polyarthralgia ERYTHROCYTE SEDIMENTATION RATE Routine 09/01/2024 11:37 AM [facility] Sicca complex Polyarthralgia CRP (ACUTE PHASE) Routine 09/01/2024 11: 37 AM [facility] Sicca complex Polyarthralgia COMPREHENSIVE METABOLIC PANEL Routine 09/01/2024 11:37 AM [facility] Sicca complex Polyarthralgia CBC WITH AUTO DIFFERENTIAL Routine 09/01/2024 11:37 AM [facility] Sicca complex Polyarthralgia MISCELLANEOUS LAB TEST Routine 09/01/2024 10:09 AM [facility] Sicca complex Polyarthralgia from Last 3 Months Results * SCAN - RADIOLOGY/IMAGING (09/16/2024 4:34 PM [facility]) Anatomical Region Laterality Modality Other Vicenta LANDA Final Result * US Hand Complete (09/08/2024 11:12 AM [facility]) Anatomical Region Laterality Modality Hand N/A Ultrasound Issac Amador MD [facility] PROCEDURES Final Result * (ABNORMAL) CBC with auto differential (09/01/2024 11:37 AM [facility]) WBC 7.9 3.8 - 10.8 Thousand/u L [...] [facility] Blood 09/01/2024 11:3 7 AM [facility] 09/01/2024 11:37 AM [facility] Issac Amador MD LAB BLOOD ORDERABLES Final Res ult Performing Organization Address City/[facility]/ZIP Co de Phone Number [facility] [address] [place] [address] * Erythrocyte sedimentation rate (09/01/2024 11:37 AM [facility]) Erythrocyte sedimentation rate 9 < OR = 20 mm/h [facility] Blood 09/01/2024 11:3 7 AM [facility] 09/01/2024 11:37 AM [facility] Issac Amador MD LAB BLOOD ORDERABLES Final Res ult Performing Organization Address City/[facility]/ZIP Co de Phone Number [facility] [address] [place] [address] * CRP (acute phase) (09/01/2024 11:37 AM [facility]) C-RP <3.0 <8.0 mg/L [facility] Blood 09/01/2024 11:3 7 AM [facility] 09/01/2024 11:37 AM [facility] us Issac Amador MD LAB BLOOD ORDERABLES Final Res ult [facility] [address] [phone] * Comprehensive metabolic panel (09/01/2024 11:37 AM [facility]) Glucose 71 65 - 99 mg/dL [facility] Blood 09/01/2024 11:3 7 AM [facility] 09/01/2024 11:37 AM [facility] Issac Amador MD LAB BLOOD ORDERABLES Final Res ult [facility] [address] [place] [phone] * [facility] CTD - Miscellaneous Test (09/01/2024 10:09 AM [facility]) Miscellaneous Issac Amador MD LAB BLOOD ORDERABLES Final Res ult EXTERNAL LAB from Last 3 Months Insurance [facility] [address] [place] [address] [employer] [facility] [address] [place] [phone] [employer] [place] [facility] Care Teams Watershed Program Manager Relationship Specialty Start Date End Date Saul Ruelas MD PCP - General Family Medicine 08/25/20 Abiodun Red MD [address] [place] [address] Referring Physician Neurology 11/27/22 Issac Amador MD [address] [place] [address] Consulting Physician Rheumatology 07/23/24
--- OUTSIDE RECORDS SUMMARY | 2024-10-02 01:59 | XMS_ITS | Encounter Summary ---
Author Organization [facility] Address [address] [place] [address] Care Team Providers Care Hospitality Intern Name Role Phone Unavailable Primary Care Provider Unavailabl e Encounter Details Date Type Department Care Team (Late st Contact Info) Description 03/02/2022 Lab Requisition [facility] [address] [facility] [place] [address] Niles George MD [address] [place] [address] Social History Tobacco Use Types [...] AM CDT) Case Report Dermatopathology Report Case: [id number] Authorizing Provider: Niles George MD Collected: 03/02/2022 12:00 AM Ordering Location: [facility] Received: 03/02/2022 05:15 PM [...] characteristic determined by the Dermatopathology Laboratory at [facility], directed by Dr. Miguel Viramontes. These tests need not be, and therefore are not, approved by the [place] Food and Drug Administration. The tests are used for clinical purposes. Billing Codes Specimen Charges Stain Charges 16529 1 2 6:16 PM CDT DERMATOPATHOLOGY LABORATORY Embedded Images 2 6:16 PM CDT DERMATOPATHOLOGY LABORATORY Pathology/Cytolog y TISSUE SPECIMEN FROM SKIN / Unknown 03/02/2022 03/02/2022 5:15 PM CDT Niles George MD LAB - PATHOLOGY/CYTO LOGY ORDERABLES DERMATOPATHOLOGY LABORATORY [facility] - Department of Dermatology [address], [address] [phone] documented in this encounter Visit Diagnoses Not on filedocumented in this encounter
--- OUTSIDE RECORDS SUMMARY | 2024-10-02 01:59 | XMS_ITS | Data Portability ---
Author Organization [facility], [facility] Address [address] [address] Assessment Encounter Date Assessment Date Assessment LastModified [...] [facility], [address], [address], [place], [address], 0 16:13:19 Referral None recorded. Procedures nerve conductio n study/EMG , upper extremity (PROC) - bilateral upper extremity EMG 2019 [facility], [address], [place], [address], 0 19:22:09 lumbar radiofreq uency lesioning (PROC) - RFA of Left L3,L4,L5 w/ IV sedation to be done by Dr. Marr at [facility] 2019 020 [email or web address] Jorge Alberto Marr MD, [address], [address], [place], [address], 0 17:40:34 Surgeries None recorded. Imaging None recorded. Medication Orders Suboxone 8 mg-2 mg sublingua l film 2019 [facility], [facility], [place], [address], 0 18:36:27 Suboxone 8 mg-2 mg sublingua l film 2019 INTERFACE [facility], [address], [place], [address], 0 18:36:12 Suboxone 8 mg-2 mg sublingua l film 2019 INTERFACE [facility], [facility] [employer] [facility] [address], [place], [address], 0 18:36:22 lidocaine 5 % topical patch 2019 020 INTERFACE [facility], [address] [employer] [address] [employer] [facility] [address], [place], [address], 0 18:36:17 Suboxone 8 mg-2 mg sublingua l film 2019 020 INTERFACE [facility], [facility] [employer] [facility] [address], [place], [address], 0 14:35:52 Suboxone 8 mg-2 mg sublingua l film 2019 020 INTERFACE [facility], [address] [place] [address] 10, [place], [address], 0 15:16:01 Suboxone 8 mg-2 mg sublingua l film 2019 020 [email or web address] Not available 0 16:53:01 Patient TargetsNo targets recorded. Patient Instructions Encounter Date Encounter Id Patient Instructions Last Modified By Organization Details Last Modified Time 11/20/2019 [id number] Last UADS obtain ed on 09/29/2019 +buprenorphine consistent for prescribed medication Medication List was reviewed and/or updated during this visit, including review of any flkr-kok-lsijpdp medications, herbal therapies, and/or supplements. [place] Prescription Drug Monitoring program was reviewed today. [...] prn RR Not available 11/20/2019 14:55:30 12/18/2019 [id number] UDS collected today. Will await final confirmation from the laboratory. She will be screened today for adherence to her treatment plan and medication compliance. Medication List was reviewed and/or updated during this visit, including review of any zuei-aqb-rfmkpgz medications, herbal therapies, and/or supplements. Allergies updated. [place] Prescription Drug Monitoring program was reviewed today, appropriate. Risk Assessment: 9- high Risk. Ms. Guardado did not exhibit any behaviors today that would indicate illicit drug use. This assessment was obtained using the [place] Opioid Risk Tool on 11/06/2018. MED: 0 according to the [place] Prescription Drug Monitoring Program. A sleep study [...] order for a nerve conduction study to [facility] was sent on 11/20/2019. [facility] reported back stating that they need a [place] authorization request put in before proceding with the nerve condution study. She denies any cravings, relapses or persistent thoughts at this time. She is stable on her current suboxone regimen and denies any side effects or adverse reactions. Patient reports she is currently attending counseling 2-3 times a month with [facility]. Patient was educated on the positive effects [...] the office for any clarifications or corrections. [email or web address] Not available 12/22/2019 13:00:59 02/16/2020 [id number] Last UADS obtain ed on 12/18/2019 +buprenorphine consistent for prescribed medication Medication List was reviewed and/or updated during this visit, including review of any vkrl-lxn-ghlvxyl medications, herbal therapies, and/or supplements. Allergies updated. [place] Prescription Drug Monitoring program was reviewed today, [...] Clinic [address], [place], [address], 12/22/2019 16:13:19 12/18/19 20 12/22/2019 full panel barbiturates Negati ve < 200 Not Available [facility] [address], [place], [address], 12/22/2019 16:13:19 12/18/19 20 12/22/2019 full panel benzodiazepi brandy Positi ve < 200 high Not Available [facility] [address], [place], [address], 12/22/2019 16:13:19 12/18/19 20 12/22/2019 full panel buprenorphin e Positi ve < 20 high Not Available [facility] [address], [place], [address], 12/22/2019 16:13:19 12/18/19 20 12/22/2019 full panel cocaine Negati ve < 150 Not Available [facility] [address], [place], [address], 12/22/2019 16:13:19 12/18/19 20 12/22/2019 full panel ecstasy Negati ve < 500 Not Available [facility] [address], [place], [address], 12/22/2019 16:13:19 12/18/1912/22/2019 full panel heroin 6AM Negati ve < 10 Not Available [facility] [address], [place], [address], 12/22/2019 16:13:19 12/18/19 20 12/22/2019 full panel methadone metabolite Negati ve < 1000 Not Available [facility] [address], [place], [address], 12/22/2019 16:13:19 12/18/19 20 12/22/2019 full panel opiates Negati ve < 300 Not Available [facility] [address], [place], [address], 12/22/2019 16:13:19 12/18/19 20 12/22/2019 full panel oxycodone Negati ve < 300 Not Available [facility] [address], [place], [address], 12/22/2019 16:13:19 12/18/19 20 12/22/2019 full panel pcp Negati ve < 25 Not Available [facility] [address], [place], [address], 12/22/2019 16:13:19 12/18/19 20 12/22/2019 full panel creatinine Normal >= 20 normal Not Available [facility] [address], [place], [address], 12/22/2019 16:13:19 12/18/19 20 12/22/2019 full panel pH Normal 4.5 - 9 normal Not Available [facility] [address], [place], [address], 12/22/2019 16:13:19 12/18/19 20 12/22/2019 full panel specific gravity Normal NG/mL 1.004 - 1.036 normal Not Available [facility] [address], [place], [address], 12/22/2019 16:13:19 12/18/19 20 12/22/2019 full panel oxidant Normal <= 200 normal Not Available [facility] [address], [place], [address], 12/22/2019 16:13:19 12/18/19 20 12/22/2019 full panel temperature Normal F manual normal Not Available [facility] [address], [place], [address], 12/22/2019 16:13:19 Result Notes None recorded. Problems Name Problem SNOMED Code Status Onset Date Resolution Date Notes Provider Name and Address Organization Details Recorded Time Chronic pain 40920592 Active 2018 Giselle hong [facility] 9 15:36:58 Opioid dependence 87583777 Active 2018 Giselle hong [facility] 9 15:57:42 Low back pain 277447405 Active 2018 Giselle hong [facility] 9 15:57:49 Sacroiliac joint pain 204391948 Active 2018 Giselle hong [facility] 9 15:57:58 Fibromyalg ia 104898089 Active 2018 Giselle hong [facility] 9 15:58:07 Central sleep apnea syndrome 50760823 Active 2018 Giselle hong [facility] 9 15:58:40 Chronic neck pain 4410618238280 Active 2018 Bhavik Garcia MD [address] [facility] [address], [place], [address] , [facility] 9 00:15:21 Thompson's neuroma of right foot 7260115424953 08 Active 2018 Bhavik Garcia MD [address] [facility] [address], [place], [address] , [facility] 9 23:50:15 Lumbar spondylosi s 860789082 Active 2018 Eddie hong [facility] 9 15:21:27 Spasm 09150010 Active 2018 [facility] 9 15:21:29 Numbness of hand 554459902 Active [facility] 0 14:33:48 Problem Notes None recorded. Procedures Surgical History Date Name Laterality Status Provider Name and Address Organization Details Recorded Time 09/08/19 20 Lumbar Medial Branch Blocks With Sedation completed Bhavik Garcia MD [address], [place], [address], [facility] 09/08/2019 14:27:56 03/27/20 19 Sacroiliac Joint Steroid Injection Under Fluoroscopy completed Bhavik Garcia MD [address], [place], [address], [facility] 03/27/2019 18:35:31 02/14/20 19 Lumbar Medial Branch Block completed Bhavik Garcia MD [address], [place], [address], [facility] 02/13/2019 19:37:43 03/16/20 12 repair of hernia of abdominal wall completed Count includes the [facility] 11/05/2018 15:22:20 bariatric operative procedure completed Count includes the [facility] 11/05/2018 15:26:48 section completed Count includes the [facility] 11/05/2018 15:20:01 Cholecystectomy completed Count includes the [facility] 11/05/2018 15:23:52 closure of patent foramen ovale completed Count includes the [facility] 11/05/2018 15:25:01 exploratory laparotomy completed Count includes the [facility] 11/05/2018 15:26:14 Gastric bypass for obesity completed Count includes the [facility] 11/05/2018 15:26:35 Imaging Results None recorded. Procedure Notes None recorded. Medical Equipment None Reported. Allergies Allergen ID Allergen Name Allergen Category Reaction Reaction Severity Criticality Documentation Date Start Date Code Code System Note Provider Name and Address Organization Details Recorded Time zolpidem medicatio n other Not available Not available 11/05/2018 57648 RxNorm [facility] 0 12:09:52 oxycodone medicatio n other Not available Not available 11/05/2018 7804 RxNorm [facility] 0 12:09:49 lorazepam medicatio n other Not available Not available 11/05/2018 6470 RxNorm [facility] 0 12:09:47 Medications [...] Not Available Not Available Not Available vitamin U36-iwuhv acid injection solution Take 1 mL every [...] Do You Have An Advance Directive? Yes [email or web address] Information not available 11/06/2018 What Is Your Level Of Alcohol Consumption? None [email or web address] Information not available 11/06/2018 Auto Related Injury? No Information not available 11/06/2018 Are You Blind Or Do You Have Difficulty Seeing? Yes [email or web address] Information not available 11/06/2018 What Is Your Level Of Caffeine Consumption? Moderate [email or web address] Information not available 11/06/2018 How Much Tobacco Do You Chew? None [email or web address] Information not available 11/06/2018 Are You Currently Employed? No [email or web address] Information not available 11/06/2018 What Type Of Diet Are You Following? REGULAR [email or web address] Information not available 11/06/2018 Education 2 Year College [email or web address] Information not available 11/06/2018 Which Of Your Hands Is Dominant? Right [email or web address] Information not available 11/06/2018 Live Alone Or With Others? With Others [email or web address] Information not available 11/06/2018 Marital Status [email or web address] Informatio n not available 11/06/2018 What Was The Date Of Your Most Recent Tobacco Screening? 01/14/2019 Information not available 02/06/2019 What Types Of Sporting Activities Do You Participate In? No Information not available 08/26/2019 General Stress Level Medium [email or web address] Information not available 11/06/2018 Work Related Injury? No [email or web address] Information not available 11/06/2018 Sex: Unknown Functional Status Question Answer Note LastModified by Organizat ion Details LastModified Time Do you have difficulty walking or climbing stairs? Yes [email or web address] Information not available 11/06/2018 What is your exercise level? Occasional [email or web address] Information not available 11/06/2018 Mental Status None recorded. Family History Relationship Description Onset Age of this Age Resolved Age Notes LastModified by Organization Details LastModified Time Maternal Grandmother Hypertensive disorder [email or web address] Not available 11/06 15:34:10 Maternal Grandmother Heart disease Not available 11/06 15:34:10 Mother Disorder of thyroid gland [email or web address] Not available 11/06 15:34:10 Mother Osteoporosis [email or web address] Not matthew ilable 11/06/2018 15:34:10 Father Diabetes mellitus [email or web address] Not available 11/06 15:34:10 Father Depressive disorder [email or web address] Not available 11/06 15:34:10 Father Anxiety disorder [email or web address] Not available 11/06 15:34:10 Brother Depressive disorder [email or web address] Not available 11/06 15:34:10 Brother Anxiety disorder Not available 11/06 15:34:10 Sister Disorder of thyroid gland [email or web address] Not available 11/06 15:34:10 Medical History Condition Response Thyroid Disease Y Kidney Stones N Hernia Y COPD N Depression N Glaucoma N Lung Disease N Irregular Heart Beats N History of [...] SNOMED-CT Code Diagnosis ICD10 Code Diagnosis Note [id number] Bhavik Garcia MD Main Office [address] [facility] [place] [address] [address] 11/06/2018 14:13:34 11/08/2018 15:40:28 Chronic pain 10172726 G89.29 Pt hs been on opioids since 2012Pt has been weaning down on the opioids for the past year.Pt has noticed withdrawal symptoms Long-term drug therapy 354773592 Z79.899 Opioid dependence 106275 00 F11.20 weaned of Provigil in Oct 2018 Low back pain 231326405 M54.5 CT L-spine (11 Jun 2018)-- slight retrolisth esis of L2 on L3. Mild degenerati ve changes of T12-L3, No CS, No NFS Sacroiliac joint pain 20 0625400 M53.3 Patient to obtain records Fibromyalgia 811333962 M 79.7 on Lyrica 150 mg po bid Central sl eep apnea syndrome 45830098 G47.31 Bi-Pap machine -JBER Chronic neck pain 531348 [address] C-spine (11 Jun 2018) -- mild DDD of the lower C-spine. No acute injury CT T-spine (11 Jun 2018)-- No abnormalit y [id number] Bhavik Garcia MD Main Office [address] [facility] [place] [address] [address] 11/21/2018 13:45:29 11/26/2018 16:57:24 Chronic pain 29456675 G89.29 Pt hs been on opioids since 2012Pt has been weaning down on the opioids for the past year.Pt has noticed withdrawal symptoms Opioid dependence 285567 00 F11.20 weaned of Provigil in Oct 2018 Constipation 73247587 K5 9.00 recommend using miralax on a daily basis Central sl eep apnea syndrome 54876041 G47.31 Bi-Pap machine -JBER Low back pain 749330695 M54.5 CT L-spine (11 Jun 2018)-- slight retrolisth esis of L2 on L3. Mild degenerati ve changes of T12-L3, No CS, No NFS Fibromyalgia 947607186 M 79.7 on Lyrica 150 mg po bid [id number] Bhavik Garcia MD Main Office [address] [address] 12/11/2018 12:32:03 12/13/2018 14:05:44 Chronic pain 31522020 G89.29 Pt hs been on opioids since 2012Pt has been weaning down on the opioids for the past year.Pt has noticed withdrawal symptoms Low back pain 271199881 M54.5 CT L-spine (11 Jun 2018)-- slight retrolisth esis of L2 on L3. Mild degenerati ve changes of T12-L3, No CS, No NFS Sacroiliac joint pain 20 4424914 M53.3 Patient to obtain records Opioid dependence 511021 00 F11.20 started suboxone on 06 November 2018 weaned of Provigil in Oct 2018 Jay's n euroma of right foot 2656070866 62532 G57.61 scheduled for [facility] Neuroma excision on 12 Dec 2018 from the right foot Pt plans to use the buprenorph ine for pain controlmay also use Ibuprofen / TylenolIf worse pain than expected will use short course of oxycodone Central sl eep apnea syndrome 00664819 G47.31 Bi-Pap machine -JBER Fibromyalgia 995584653 M 79.7 on Lyrica 150 mg po bid [id number] Bhavik Garcia MD Main Office [address] [facility] [address] [place] [address] 12/17/2018 13:08:21 12/23/2018 15:48:29 Chronic pain 04817471 G89.29 Pt hs been on opioids since 2012Pt has been weaning down on the opioids for the past year.Pt has noticed withdrawal symptoms Opioid dependence 430292 started suboxone on 06 November 2018 weaned of Provigil in Oct 2018 Jay's n euroma of right foot 2062173779 95050 G57.61 scheduled for [facility] Neuroma excision on 12 Dec 2018 from the right foot Pt plans to use the buprenorph ine for pain controlmay also use Ibuprofen / TylenolIf worse pain than expected will use short course of oxycodone Low back pain 023916448 M54.5 CT L-spine (11 Jun 2018)-- slight retrolisth esis of L2 on L3. Mild degenerati ve changes of T12-L3, No CS, No NFS Sacroiliac joint pain 20 6089870 M53.3 Patient to obtain records Central sl eep apnea syndrome 99988650 G47.31 Bi-Pap machine -JBER Fibromyalgia 602646886 M 79.7 on Lyrica 150 mg po bid [id number] Bhavik Garcia MD Main Office [address] [facility] [address] [place] [address] 01/14/2019 14:33:23 01/22/2019 13:33:27 Opioid dependence 00689811 1. started suboxone on 06 November 2018 weaned of Provigil in Oct 2018 Thompson's n euroma of right foot 1374417832 03532 G57.61 Mortons Neuroma excision on 12 Dec 2018 from the right foot on MOLLY (Dr. Collier) Pt plans to use the buprenorph ine for pain controlmay also use Ibuprofen / TylenolIf worse pain than expected will use short course of oxycodone Sacroiliac joint pain 20 3803233 M53.3 Patient to obtain records Central sl eep apnea syndrome 00293204 G47.31 Bi-Pap machine -JBER Fibromyalgia 520031433 M 79.7 on Lyrica 150 mg po bid Spasm 64364657 R25.2 Took over [employer] Lumbar spondylosis [address] L-spine (11 Jun 2018)-- slight retrolisth esis of L2 on L3. Mild degenerati ve changes of T12-L3, No CS, No NFS Ordered BL MBB L3-5 [id number] Bhavik Garcia MD Main Office [address] [place] [address] 02/10/2019 18:15:08 02/18/2019 18:01:34 Opioid dependence 57710768 F11.20 started suboxone on 06 November 2018 weaned of Provigil in Oct 2018 Lumbar spondylosis [address] L-spine (11 Jun 2018)-- slight retrolisth esis of L2 on L3. Mild degenerati ve changes of T12-L3, No CS, No NFS scheduled for MBB#1 stephon L3,L4,L5 on 13 Feb 2019 Thompson's n euroma of right foot 8617913165 07877 G57.61 Mortons Neuroma excision on 12 Dec 2018 from the right foot on MOLLY (Dr. Collier) healing well Sacroiliac joint pain 20 2682080 M53.3 Patient to obtain records Central sl eep apnea syndrome 49168927 G47.31 Bi-Pap machine -JBER Fibromyalgia 615009515 M 79.7 on Lyrica 150 mg po bid Spasm 54343679 R25.2 Took over [employer] Chronic pain 30512547 G8 9.29 Pt hs been on opioids since 2012Pt has been weaning down on the opioids for the past year.Pt has noticed withdrawal symptoms [id number] Bhavik Garcia MD Main Office [address] [facility] [address] [place] [address] 02/13/2019 18:47:41 02/20/2019 16:21:24 Lumbar spondylosis 852602705 M47.816 CT L-spine (11 Jun 2018)-- slight retrolisth esis of L2 on L3. Mild degenerati ve changes of T12-L3, No CS, No NFS completed stephon L3,L4, L5 MBB#1 on 13 Feb 2019 [id number] Bhavik Garcia MD Main Office [address] [facility] [address] [place] [address] 03/10/2019 17:38:53 03/18/2019 18:30:29 Opioid dependence 09496925 F11.20 started suboxone on 06 November 2018 weaned of Provigil in Oct 2018 Lumbar spondylosis [address] L-spine (11 Jun 2018)-- slight retrolisth esis of L2 on L3. Mild degenerati ve changes of T12-L3, No CS, No NFS completed stephon L3,L4, L5 MBB#1 on 13 Feb 2019 -- reports>80 % pain reductionw ill schedule MBB#2 L3,L4,L5 Thompson's n euroma of right foot 5386616868 81171 G57.61 Mortons Neuroma excision on 12 Dec 2018 from the right foot on JBER (Dr. Collier) healing well Central sl eep apnea syndrome 75434854 G47.31 Bi-Pap machine -JBER Fibromyalgia 204913140 M 79.7 on Lyrica 150 mg po bid Spasm 17649277 R25.2 Took over [employer] la Long-term drug therapy 155741813 Z79.899 [id number] Bhavik Garcia MD Main Office [address] [facility] [address] [place] [address] 03/27/2019 17:36:09 04/03/2019 13:06:15 Sacroiliac joint pain 575052048 M53.3 completed left SI jt injection on 27 Mar 2019 [id number] Bhavik Garcia MD Main Office [address] [facility] [address] [place] [address] 04/08/2019 13:42:28 04/15/2019 13:49:15 Opioid dependence 80186395 F11.20 started suboxone on 06 November 2018 Lumbar spondylosis [address] L-spine (11 Jun 2018)-- slight retrolisth esis of L2 on L3. Mild degenerati ve changes of T12-L3, No CS, No NFS completed stephon L3,L4, L5 MBB#1 on 13 Feb 2019 -- reports>80 % pain reduction Schedued for MBB#2 L3,L4,L5 on 24 Apr 2019 Central sl eep apnea syndrome 56749381 G47.31 Bi-Pap machine -JBER Fibromyalgia 831889192 M 79.7 on Lyrica 150 mg po bid Spasm 41431292 R25.2 Long-term drug therapy 887091945 Z79.899 Sacroiliac joint pain 20 7660123 M53.3 completed left SI jt injection on 27 Mar 2019--80% pain reduction [id number] Bhavik Garcia MD Main Office [address] [facility] [address] [place] [address] 05/06/2019 13:38:05 05/13/2019 14:09:45 Opioid dependence 62125266 F11.20 started suboxone on 06 November 2018 Sacroiliac joint pain 20 7483772 M53.3 completed left SI jt injection on 27 Mar 2019--80% pain reduction Fibromyalgia 388159272 M 79.7 on Lyrica 150 mg po bid Spasm 75099060 R25.2 Central sl eep apnea syndrome 88716201 G47.31 Bi-Pap machine -JBER Long-term drug therapy 941118702 Z79.899 Lumbar spondylosis [address] L-spine (11 Jun 2018)-- slight retrolisth esis of L2 on L3. Mild degenerati ve changes of T12-L3, No CS, No NFS completed stephon L3,L4, L5 MBB#1 on 13 Feb 2019 -- reports>80 % pain reduction Scheduled for MBB#2 L3,L4,L5 on 12 May 2019 [id number] Bhavik Garcia MD Main Office [address] [address] 06/03/2019 15:40:20 06/16/2019 16:00:37 Opioid dependence 23018096 F11.20 started suboxone on 06 November 2018 Lumbar spondylosis [address] L-spine (11 Jun 2018)-- slight retrolisth esis of L2 on L3. Mild degenerati ve changes of T12-L3, No CS, No NFS completed stephon L3,L4, L5 MBB#1 on 13 Feb 2019 -- reports>80 % pain reduction will order MBB#2 L3,L4,L5 Sacroiliac joint pain 20 3372562 M53.3 completed left SI jt injection on 27 Mar 2019--80% pain reduction Fibromyalgia 814228053 M 79.7 on Lyrica 150 mg po bid Spasm 05648387 R25.2 Central sl eep apnea syndrome 30340204 G47.31 Bi-Pap machine -JBER Thompson's n euroma of right foot 1702497879 71402 G57.61 Mortons Neuroma excision on 12 Dec 2018 from the right foot on JBER (Dr. Collier) healing well Chronic pain 90908070 G8 9.29 Pt hs been on opioids since 2012Pt has been weaning down on the opioids for the past year.Pt has noticed withdrawal symptoms [id number] Bhavik Garcia MD Main Office [address] [place], [place] [address] [facility] [address] [place] [address] 06/30/2019 18:09:50 07/10/2019 17:49:54 Opioid dependence [id number] F11.20 started suboxone on 06 November 2018 Chronic neck pain 039736 [address] C-spine (11 Jun 2018) -- mild DDD of the lower C-spine. No acute injury CT T-spine (11 Jun 2018)-- No abnormalit y Neck pain 07138852 M54.2 Lumbar spondylosis [address] L-spine (11 Jun 2018)-- slight retrolisth esis of L2 on L3. Mild degenerati ve changes of T12-L3, No CS, No NFS completed stephon L3,L4, L5 MBB#1 on 13 Feb 2019 -- reports>80 % pain reduction will order MBB#2 L3,L4,L5 [id number] Bhavik Garcia MD Main Office [address] [address] 07/29/2019 13:42:17 08/04/2019 18:41:56 Opioid dependence 47374774 F11.20 started suboxone on 06 November 2018 Chronic pain 97823972 G8 9.29 Pt hs been on opioids since 2013Pt has been weaning down on the opioids for the past year.Pt has noticed withdrawal symptoms Lumbar spondylosis [address] L-spine (11 Jun 2018)-- slight retrolisth esis of L2 on L3. Mild degenerati ve changes of T12-L3, No CS, No NFS completed stephon L3,L4, L5 MBB#1 on 13 Feb 2019 -- reports>80 % pain reduction will order MBB#2 L3,L4,L5 Sacroiliac joint pain 20 4194581 M53.3 completed left SI jt injection on 27 Mar 2019--80% pain reduction Long-term drug therapy 842507595 Z79.899 [id number] Bhavik Garcia MD Main Office [address] [address] 08/26/2019 14:00:21 08/29/2019 14:10:10 Opioid dependence 45156346 F11.20 started suboxone on 06 November 2018 Chronic pain 94892557 G8 9.29 Lumbar spondylosis [address] L-spine (11 Jun 2018)-- slight retrolisth esis of L2 on L3. Mild degenerati ve changes of T12-L3, No CS, No NFS completed stephon L3,L4, L5 MBB#1 on 13 Feb 2019 -- reports>80 % pain reduction will order MBB#2 stephon L3,L4,L5 Sacroiliac joint pain 20 5555354 M53.3 completed left SI jt injection on 27 Mar 2019--80% pain reduction Numbness of hand 0025052 04 R20.0 will order stephon UE EMG / NCS to r/o CTSwill set up with nocturnal wrist splints Spasm 55588983 R25.2 [id number] Bhavik Garcia MD Main Office [address] [address] 09/08/2019 13:31:26 09/12/2019 14:03:08 Lumbar spondylosis 561593248 M47.816 CT L-spine (11 Jun 2018)-- slight retrolisth esis of L2 on L3. Mild degenerati ve changes of T12-L3, No CS, No NFS completed stephon L3,L4, L5 MBB#1 on 13 Feb 2019 -- reports>80 % pain reduction completed stephon MBB#2 on 08 Sep 2019prepro cedure pain was 01/22 [id number] Yolis espinoza, Main Office [address] [address] 09/25/2019 13:48:32 09/25/2019 18:41:45 Lumbar spondylosis 010301387 M47.896 CT L-spine (11 Jun 2018)-- slight retrolisth esis of L2 on L3. Mild degenerati ve changes of T12-L3, No CS, No NFS completed stephon L3,L4, L5 MBB#1 on 13 Feb 2019 -- reports>80 % pain reduction L3, L4, L5 MBB #2 on 09/08/19: 80% relief Opioid dependence 163696 00 F11.20 Chronic pain 52646457 G8 9.29 Patient takes medication s for this condition. Numbness of hand 0534812 04 R20.0 UE EMG have been ordered. Pt. needs to schedule [id number] Bhavik Garcia MD Main Office [address] [address] 10/23/2019 13:59:53 10/31/2019 14:03:53 Opioid dependence 11635152 F11.20 started suboxone on 06 November 2018 Lumbar spondylosis [address] L-spine (11 Jun 2018)-- slight retrolisth esis of L2 on L3. Mild degenerati ve changes of T12-L3, No CS, No NFS completed stephon L3,L4, L5 MBB#1 on 13 Feb 2019 -- reports>80 % pain reduction Completed MBB#2 stephon L3,L4,L5 08 Sep 2019-80% relief Sacroiliac joint pain 20 1606561 M53.3 completed left SI jt injection on 27 Mar 2019--80% pain reduction Numbness of hand 5647262 04 R20.0 Occasional numbness right hand index middle and ring finger Chronic neck pain 681749 [address] C-spine (11 Jun 2018) -- mild DDD of the lower C-spine. No acute injury CT T-spine (11 Jun 2018)-- No abnormalit y [id number] Bhavik Garcia MD Main Office [address] [address] 11/20/2019 14:00:56 11/26/2019 18:42:05 Lumbar spondylosis 876989735 M47.816 CT L-spine (11 Jun 2018)-- slight retrolisth esis of L2 on L3. Mild degenerati ve changes of T12-L3, No CS, No NFS completed stephon L3,L4, L5 MBB#1 on 13 Feb 2019 -- reports>80 % pain reduction Completed MBB#2 stephon L3,L4,L5 08 Sep 2019-80% relief will order Left RFA L3,L4,L5sc heduled for right RFA L3,L4,L5 on 05 Dec 2019 Opioid dependence 449976 00 F11.20 started suboxone on 06 November 2018 Sacroiliac joint pain 20 1029033 M53.3 completed left SI jt injection on 27 Mar 2019--80% pain reduction Numbness of hand 4640537 04 R20.0 Occasional numbness right hand index middle and ring fingerwill order NCS / EMG of the UE Chronic neck pain 517023 [address] C-spine (11 Jun 2018) -- mild DDD of the lower C-spine. No acute injury CT T-spine (11 Jun 2018)-- No abnormalit y [id number] Jorge Alberto Marr MD Main Office [address] [address] [address] 12/05/2019 12:11:05 12/17/2019 19:36:10 [id number] Bhavik Garcia MD Main Office [address] [address] [address] 12/18/2019 14:00:17 12/29/2019 13:43:26 Opioid dependence 70121653 F11.20 started suboxone on 06 November 2018Goes to [facility] 2-3 times a month Lumbar spondylosis [address] L-spine (11 Jun 2018)-- slight retrolisth esis of L2 on L3. Mild degenerati ve changes of T12-L3, No CS, No NFS completed stephon L3,L4, L5 MBB#1 on 13 Feb 2019 -- reports>80 % pain reductionC ompleted MBB#2 stephon L3,L4,L5 08 Sep 2019-80% relief completed right RFA L3,L4,L5 on 05 Dec 2019---rep orts 80% pain reduction Sacroiliac joint pain 20 8805464 M53.3 completed left SI jt injection on 27 Mar 2019--80% pain reduction Numbness of hand 2372694 04 R20.0 Occasional numbness right hand index middle and ring fingerneed to reorder NCS / EMG of the UE to [facility] PT Chronic neck pain 546229 [address] C-spine (11 Jun 2018) -- mild DDD of the lower C-spine. No acute injury CT T-spine (11 Jun 2018)-- No abnormalit y Long-term drug therapy 571492960 Z79.899 [id number] Bhavik Garcia MD Main Office [address] [place], [place] [address]Y [address] [address] 01/19/2020 13:53:44 01/30/2020 19:48:04 Opioid dependence 47581025 F11.20 started suboxone on 06 November 2018Goes to [facility] 2-3 times a month Lumbar spondylosis [address] L-spine (11 Jun 2018)-- slight retrolisth esis of L2 on L3. Mild degenerati ve changes of T12-L3, No CS, No NFS completed stephon L3,L4, L5 MBB#1 on 13 Feb 2019 -- reports>80 % pain reductionC ompleted MBB#2 stephon L3,L4,L5 08 Sep 2019-80% relief completed right RFA L3,L4,L5 on 05 Dec 2019---rep orts 80% pain reduction Sacroiliac joint pain 20 3244204 M53.3 completed left SI jt injection on 27 Mar 2019--80% pain reduction Numbness of hand 5014557 04 R20.0 Occasional numbness right hand index middle and ring fingerneed to reorder NCS / EMG of the UE to [facility] PT Chronic neck pain 410707 [address] C-spine (11 Jun 2018) -- mild DDD of the lower C-spine. No acute injury CT T-spine (11 Jun 2018)-- No abnormalit y [id number] Bhavik Garcia MD Main Office [address] [place] [address] 02/16/2020 17:03:53 02/23/2020 18:27:24 Opioid dependence 64398954 F11.20 started suboxone on 06 November 2018Goes to [facility] a month Numbness of hand 5589102 04 R20.0 Occasional numbness right hand index middle and ring fingerneed to reorder NCS / EMG of the UE to [facility] PTOrder was not improved through tricarePt is PCSing out of area through the in 3 weeks Sacroiliac joint pain 20 0432457 M53.3 completed left SI jt injection on 27 Mar 2019--80% pain reduction 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 Mild degenerati ve changes of T12-L3, No CS, No NFS completed stephon L3,L4, L5 MBB#1 on 13 Feb 2019 -- reports>80 % pain reductionC ompleted MBB#2 stephon L3,L4,L5 08 Sep 2019-80% relief completed right RFA L3,L4,L5 on 05 Dec 2019---rep orts 80% pain reduction Chronic neck pain 266096 [address] C-spine (11 Jun 2018) [...] [facility] Damir Guardado [id number] Holly Guardado 12/05/2019 [facility] Damir Guardado [id number] Holly Guardado 12/18/2019 [facility] Damir Guardado [id number] Holly Guardado 01/19/2020 [facility] Damir Guardado [id number] Holly Guardado 02/16/2020 [facility] Damir Guardado [id number] Holly Guardado Notes Date Note Type Note [...] Garcia MD [address], [place], [address], [facility] 11/24/2019 00:10:25 12/18/2019 [...] attending counseling 2-3 times a month with [facility]. 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 Bhavik Garcia MD [facility] [address], [address], [facility] 01/20/2020 23:50:24 02/16/2020 text/html [facility] HPI PAINReported [facility].Location:bot h head; both Neck; [...] at a 3/10. RR Bhavik Garcia MD [address] [facility] [address], [place], [address], [place] [facility] 02/18/2020 23:20:45 OBGyn Episode No OBEpisode recorded.
--- OUTSIDE RECORDS SUMMARY | 2024-10-02 01:59 | XMS_ITS | Clinical Summary ---
Author Organization [address] Address [address] [place] [address] Care Team Providers Care It Auditor Name Role Phone Saul Ruelas MD Primary Care Provider [phone] Abiodun Red MD Unavailable [phone] Issac Amador MD Unavailable [phone] Allergies No known active allergies Medications [...] immediately before bedtime 30 tablet 3 02/28/20 025 Discontin ued(Reord er) Active Problems Problem [...] seen Assessment & Plan (09/01/2024 12:03 PM AN/SYQ 13 NAV/C2 OPERATOR): 44-year-old female with PMHx of HTN, [...] hand/wrist US to further evaluate. Increase Pilocarpine 5/10/5; avoiding higher dosing as she already notes diaphoresis with this. Continue HCQ 200mg daily for now. Will start meloxicam 7.5mg daily. Discussed side effects of the medication, including but not limited to GI upset, kidney, and ulcers. Deferring higher dosing due to hx GERD. Will contact automotive lube technician for records. Follow up in 2 weeks. Sooner if needed. Seen with Dr. Amador. TONY (obstructive sleep apnea) 10/05/2020 Assessment & Plan (07/01/2024 10:25 AM AN/SYQ 13 NAV/C2 OPERATOR): Patient continue with CPAP at 8 cm water pressure while sleeping. She was intolerable of higher pressures in the past. DME is [employer]. Assessment & Plan (06/28/2023 11:59 AM AN/SYQ 13 NAV/C2 OPERATOR): Due to continued symptoms, the patient will continue CPAP at 8 cm water pressure. The patient has an elevated AHI, however she is intolerant of higher pressure. Denied need for supplies. DME [employer] Assessment & Plan (06/27/2022 12:02 PM AN/SYQ 13 NAV/C2 OPERATOR): Patient continue to wear CPAP at 8 cm water pressure while sleeping. Her DME is [employer]. The patient did not tolerate an increase in her pressures in the past. Assessment & Plan (06/30/2021 11:05 AM AN/SYQ 13 NAV/C2 OPERATOR): Patient continue to wear CPAP at [...] patient denied need for supplies. DME company [employer]. The patient and I discussed the recall [...] open while sleeping. The DME company is [employer]. The patient is benefitting from CPAP therapy. Other insomnia 10/05/2020 Assessment & Plan (07/01/2024 10:25 AM AN/SYQ 13 NAV/C2 OPERATOR): The patient continues with Lunesta 3 mg on most nights. Assessment & Plan (06/28/2023 11:58 AM AN/SYQ 13 NAV/C2 OPERATOR): Due to continued symptoms, the patient will continue Lunesta 3 mg nightly. I have refilled the medication and will refill for 1 year Patient is aware that she should wear her CPAP machine if taking the medication. Assessment & Plan (06/27/2022 12:02 PM AN/SYQ 13 NAV/C2 OPERATOR): The patient will continue with Lunesta 3 mg p.o. at bedtime to treat insomnia. Assessment & Plan (06/30/2021 11:04 AM AN/SYQ 13 NAV/C2 OPERATOR): The patient will continue with Lunesta [...] Department Care Team Description 09/16/2024 Orders Only [facility] [address] [place] [phone] Vicenta Early PA 09/08/2024 10:21 AM AN/SYQ 13 NAV/C2 OPERATOR - 09/08/2024 11:59 PM AN/SYQ 13 NAV/C2 OPERATOR Hospital Encounter [facility] [address] [place] [phone] Sicca complex; Polyarthralgia Discharge Disposition: Discharge to home or self care 09/08/2024 Results Follow-Up [facility] [address] [place] [phone] Issac Amador MD 09/01/2024 10:30 AM AN/SYQ 13 NAV/C2 OPERATOR Office Visit [facility] [address] [place] [phone] Vicenta Early PA Sicca complex (Primary Dx); Polyarthralgia 09/01/[address] [address] Vicenta Early PA from Last 3 Months [...] on file Legal Sex Female 9:00 AM AN/SYQ 13 NAV/C2 OPERATOR Gender Identity Female 09/06/2024 3:20 PM AN/SYQ 13 NAV/C2 OPERATOR Sexual Orientation Not on file Obstetrics History Last Filed Vital Signs Vital Sign Reading Time Taken Comments Blood Pressure 134/76 09/01/2024 10:16 AM AN/SYQ 13 NAV/C2 OPERATOR Pulse 106 09/01/2024 10:16 AM AN/SYQ 13 NAV/C2 OPERATOR Temperature 36.4 C (97.6 F) 07/01/2024 9:59 AM AN/SYQ 13 NAV/C2 OPERATOR Respiratory Rate 18 07/01/2024 9:59 AM AN/SYQ 13 NAV/C2 OPERATOR Oxygen Saturation 96% 09/01/2024 10:16 AM AN/SYQ 13 NAV/C2 OPERATOR Inhaled Oxygen Concentration - - Weight 127 kg (280 lb) 09/01/2024 10:16 AM AN/SYQ 13 NAV/C2 OPERATOR Height 177.8 cm (5' 10 ) 09/01/2024 10:16 AM AN/SYQ 13 NAV/C2 OPERATOR Body Mass Index 40.18 09/01/2024 10:16 AM AN/SYQ 13 NAV/C2 OPERATOR Plan of Treatment Health Maintenance Due [...] Comments SCAN - RADIOLOGY/IMAGING 09/16/2024 4:34 PM AN/SYQ 13 NAV/C2 OPERATOR US HAND COMPLETE Schedule Routine, Read Routine (OP Routine) 09/08/2024 11:12 AM AN/SYQ 13 NAV/C2 OPERATOR Sicca complex Polyarthralgia ERYTHROCYTE SEDIMENTATION RATE Routine 09/01/2024 11:37 AM AN/SYQ 13 NAV/C2 OPERATOR Sicca complex Polyarthralgia CRP (ACUTE PHASE) Routine 09/01/2024 11: 37 AM AN/SYQ 13 NAV/C2 OPERATOR Sicca complex Polyarthralgia COMPREHENSIVE METABOLIC PANEL Routine 09/01/2024 11:37 AM AN/SYQ 13 NAV/C2 OPERATOR Sicca complex Polyarthralgia CBC WITH AUTO DIFFERENTIAL Routine 09/01/2024 11:37 AM AN/SYQ 13 NAV/C2 OPERATOR Sicca complex Polyarthralgia MISCELLANEOUS LAB TEST Routine 09/01/2024 10:09 AM AN/SYQ 13 NAV/C2 OPERATOR Sicca complex Polyarthralgia from Last 3 Months Results * SCAN - RADIOLOGY/IMAGING (09/16/2024 4:34 PM AN/SYQ 13 NAV/C2 OPERATOR) Anatomical Region Laterality Modality Other Vicenta LANDA Final Result * US Hand Complete (09/08/2024 11:12 AM AN/SYQ 13 NAV/C2 OPERATOR) Anatomical Region Laterality Modality Hand N/A Ultrasound Issac Amador MD [facility] US PROCEDURES Final Result * (ABNORMAL) CBC with auto differential (09/01/2024 11:37 AM AN/SYQ 13 NAV/C2 OPERATOR) [facility] WBC 7.9 3.8 - 10.8 Thousand/u L [...] [facility] Blood 09/01/2024 11:3 7 AM AN/SYQ 13 NAV/C2 OPERATOR 09/01/2024 11:37 AM AN/SYQ 13 NAV/C2 OPERATOR Issac Amador MD LAB BLOOD ORDERABLES Final Res ult Performing Organization Address [facility]/ZIP Co de Phone Number [facility] [address] [place] [address] * Erythrocyte sedimentation rate (09/01/2024 11:37 AM AN/SYQ 13 NAV/C2 OPERATOR) Erythrocyte sedimentation rate 9 < OR = 20 mm/h [facility] Blood 09/01/2024 11:3 7 AM AN/SYQ 13 NAV/C2 OPERATOR 09/01/2024 11:37 AM AN/SYQ 13 NAV/C2 OPERATOR Issac Amador MD LAB BLOOD ORDERABLES Final Res ult Performing Organization Address [facility] Co de Phone Number [facility] [employer] [address] [place] [address] * CRP (acute phase) (09/01/2024 11:37 AM AN/SYQ 13 NAV/C2 OPERATOR) C-RP <3.0 <8.0 mg/L [facility] Blood 09/01/2024 11:3 7 AM AN/SYQ 13 NAV/C2 OPERATOR 09/01/2024 11:37 AM AN/SYQ 13 NAV/C2 OPERATOR Issac Amador MD LAB BLOOD ORDERABLES Final Res ult Performing Organization Address [facility] Co de Phone Number [facility] [address] [place] [address] * Comprehensive metabolic panel (09/01/2024 11:37 AM AN/SYQ 13 NAV/C2 OPERATOR) Glucose 71 65 - 99 mg/dL [...] [facility] Blood 09/01/2024 11:3 7 AM AN/SYQ 13 NAV/C2 OPERATOR 09/01/2024 11:37 AM AN/SYQ 13 NAV/C2 OPERATOR Issac Amador MD LAB BLOOD ORDERABLES Final Res ult [facility] [address] [place] [address] * AV[facility] CTD - Miscellaneous Test (09/01/2024 10:09 AM AN/SYQ 13 NAV/C2 OPERATOR) Miscellaneous Issac Amador MD LAB BLOOD ORDERABLES Final Res ult EXTERNAL LAB from Last 3 Months Insurance [facility] [id number] [place] [id number] BLUE ACC[place]ICE [place] [facility] [address] [place] [id number] [place] [facility] Care Teams It Auditor Relationship Specialty Start Date End Date Saul Ruelas MD PCP - General Family Medicine 08/25/20 Abiodun Red MD [address] [place] [address] Referring Physician Neurology 11/27/22 Issac Amador MD [facility] [place] [address] Consulting Physician Rheumatology 1/8/25
--- OUTSIDE RECORDS SUMMARY | 2024-10-02 01:59 | XMS_ITS | Clinical Summary ---
Author Organization [facility] Address [address] [place] [address] Care Team Providers Care Associate Music Professor Name Role Phone Robert García MD Primary [...] Department Care Team Description 08/27/2024 11:00 AM ALTERATION MANAGER Office Visit [facility] - [address], [address] [place] [phone] Abiodun Red MD Botox (botox 155 migraines/) 08/27/2024 Scan [facility] Scanned, [facility] 08/27/2024 Travel 08/18/2024 Telephone [facility] [address] [address] Abiodun Red MD Appointment Request 08/07/2024 Scan [facility] Scanned, [facility] 07/24/2024 Telephone [facility] [address] [address] Abiodun Red MD Orders 07/15/2024 Telephone [facility] - [address], [address] [place] [address] Abiodun Red MD Prior Authorization ([employer]) from [...] on file Legal Sex Female 9:56 AM ALTERATION MANAGER Gender Identity Not on file Sexual Orientation Not on file Last Filed Vital Signs Vital Sign Reading Time Taken Comments Blood Pressure 123/75 08/27/2024 11:15 AM ALTERATION MANAGER Pulse 90 08/27/2024 11:15 AM ALTERATION MANAGER Temperature 36.2 C (97.2 F) 06/04/2024 9:49 AM ALTERATION MANAGER Respiratory Rate 16 10/11/2022 1:02 PM CDT Oxygen Saturation 97% 08/27/2024 11:15 AM ALTERATION MANAGER Inhaled Oxygen Concentration - - Weight 131.1 kg (289 lb) 08/27/2024 11:15 AM ALTERATION MANAGER Height 177.8 cm (5' 10 ) 06/04/2024 9:49 AM ALTERATION MANAGER Body Mass Index 41.47 06/04/2024 9:49 AM ALTERATION MANAGER Plan of Treatment Upcoming Encounters Date Type Department Care Team (Late st Contact Info) Description 12/03/2024 10:00 AM CDT Office Visit [facility] - [address], [address] [place] [address] Abiodun Red MD [address] [place] [address] Health Maintenance Due Date Last Done Comments [...] Influenza Adult (#1) 2024 06/04/2020 PHQ-2 (Physician [place]) Completed 08/27/2024 HPV Vaccines Aged Out No [...] age to complete this topic Insurance [address] [place] [id number] [facility] Care Teams Associate Music Professor Relationship Specialty Start Date End Date Robert García MD [address] [phone] PCP - General 08/17/23
--- OUTSIDE RECORDS SUMMARY | 2024-10-02 01:59 | XMS_ITS | Encounter Summary ---
Author Organization [facility] Address [address] [place] [address] Phone Care Team Providers Care Email Marketing Executive Name Role Phone Saul Ruelas MD Primary Care Provider [phone] Abiodun Red MD Unavailable [phone] Issac Amador MD Unavailable [phone] Encounter Details Date Type Department Care Team (Late st Contact Info) Description 09/08/2024 Results Follow-Up [facility] [address] [place] [phone] Issac Amador MD [address] [place] [address] Social History Tobacco Use Types Packs/Day [...] on file Legal Sex Female 9:00 AM CROSSTIE INSPECTOR Gender Identity Female 09/06/2024 3:20 PM CROSSTIE INSPECTOR Sexual Orientation Not on file documented as of this encounter Plan of Treatment Not on file documented as of this encounter Visit Diagnoses Not on filedocumented in this encounter Care Teams Email Marketing Executive Relationship Specialty Start Date End Date Saul Ruelas MD PCP - General Family Medicine 08/25/20 Abiodun Red MD [address] [place] [address] Referring Physician Neurology 11/27/22 Issac Amador MD [address] [place] [address] Consulting Physician Rheumatology 07/23/24 documented as of this encounter
--- OUTSIDE RECORDS SUMMARY | 2024-10-23 01:19 | XMS_ITS | Clinical Summary ---
Author Organization [address] Address [address] [place] [address] Care Team Providers Care Steam Heating Installer Name Role Phone Saul Ruelas MD Primary Care Provider [phone] Abiodun Red MD Unavailable [phone] Issac Amador MD Unavailable [phone] Allergies No known active allergies Medications atorvastatin (LIPITOR) 40 mg tablet 1 Active cyclobenzaprine (FLEXERIL) 10 mg tablet 1 Active Synthroid 137 mcg tablet 1 Active pilocarpine (SALAGEN) 5 mg tablet 1 Active pregabalin (LYRICA) 150 mg capsule Take 1 capsule (150 mg total) by mouth 2 (two) times a day 0 Active SUMAtriptan (IMITREX) 100 mg tablet 1 Active topiramate (TOPAMAX) 50 mg tablet 1 Active omeprazole (PriLOSEC) 20 mg capsule Take 1 capsule (20 mg total) by mouth daily Active nebivoloL (BYSTOLIC) 5 mg tablet Take 1 tablet (5 mg total) by mouth daily Active lidocaine (LIDODERM) 5 % 1 Active buprenorphine-na loxone (SUBOXONE) 8-[address] 1 FILM UNDER THE TONGUE THREE TIMES DAILY 1 Active Monoject Safety Luer Lock Tip 3 mL syringe 1 Active PreviDent 5000 Plus 1.1 % cream 1 Active aspirin 81 mg enteric coated tablet Active Qulipta 60 mg tablet 4 Active busPIRone (BUSPAR) 15 mg tablet Take [...] tablet (200 mg total) by mouth daily 5 Active hydrOXYzine (VISTARIL) 50 mg capsule TAKE 1 CAPSULE BY MOUTH FOUR TIMES DAILY NEEDED FOR ANXIETY Active mupirocin (BACTROBAN) 2 % ointment APPLY IN NOSE ROTATION WITH TACROLIMUS FOR NO MORE THAN 2 WEEKS AT A TIME. TAKE A FEW DAYS BEFORE RESUMING FOR FLARES. 5 Active tacrolimus (PROTOPIC) 0.1 % ointment APPLY [...] mg total) by mouth daily 30 tablet 5 09/01/19 26 Active eszopiclone (LUNESTA) 3 mg tabletIndication s:Insomnia Take 1 tablet (3 mg total) by mouth daily Take immediately before bedtime 30 tablet 3 5 Active Active Problems Problem Noted Date Diagnosed [...] seen Assessment & Plan (09/01/2024 12:03 PM ADVANCED MANUFACTURING CONSULTANT): 44-year-old female with PMHx of HTN, HLD, [...] dosing due to hx GERD. Will contact retanned leather roller for records. Follow up in 2 weeks. Sooner if needed. Seen with Dr. Amador. TONY (obstructive sleep apnea) 10/05/2020 Assessment & Plan (07/01/2024 10:25 AM ADVANCED MANUFACTURING CONSULTANT): Patient continue with CPAP at 8 cm water pressure while sleeping. She was intolerable of higher pressures in the past. DME is [employer]. Assessment & Plan (06/28/2023 11:59 AM ADVANCED MANUFACTURING CONSULTANT): Due to continued symptoms, the patient will continue CPAP at 8 cm water pressure. The patient has an elevated AHI, however she is intolerant of higher pressure. Denied need for supplies. DME [employer] Assessment & Plan (06/27/2022 12:02 PM ADVANCED MANUFACTURING CONSULTANT): Patient continue to wear CPAP at 8 cm water pressure while sleeping. Her DME is [employer]. The patient did not tolerate an increase in her pressures in the past. Assessment & Plan (06/30/2021 11:05 AM ADVANCED MANUFACTURING CONSULTANT): Patient continue to wear CPAP at 8 cm water pressure while sleeping. Her DME is [employer]. The patient is already registered her CPAP [...] patient denied need for supplies. DME company [employer]. The patient and I discussed the recall [...] open while sleeping. The DME company is [employer]. The patient is benefitting from CPAP therapy. Other insomnia 10/05/2020 Assessment & Plan (07/01/2024 10:25 AM ADVANCED MANUFACTURING CONSULTANT): The patient continues with Lunesta 3 mg on most nights. Assessment & Plan (06/28/2023 11:58 AM ADVANCED MANUFACTURING CONSULTANT): Due to continued symptoms, the patient will continue Lunesta 3 mg nightly. I have refilled the medication and will refill for 1 year Patient is aware that she should wear her CPAP machine if taking the medication. Assessment & Plan (06/27/2022 12:02 PM ADVANCED MANUFACTURING CONSULTANT): The patient will continue with Lunesta 3 mg p.o. at bedtime to treat insomnia. Assessment & Plan (06/30/2021 11:04 AM ADVANCED MANUFACTURING CONSULTANT): The patient will continue with Lunesta 3 [...] Department Care Team Description 09/16/2024 Orders Only [facility] [address] [place] [phone] Vicenta Early PA 09/08/2024 10:21 AM ADVANCED MANUFACTURING CONSULTANT - 09/08/2024 11:59 PM ADVANCED MANUFACTURING CONSULTANT Hospital Encounter [facility] [address] [place] [phone] Sicca complex; Polyarthralgia Discharge Disposition: Discharge to home or self care 09/08/2024 Results Follow-Up [address] [phone] Issac Amador MD 09/01/2024 10:30 AM ADVANCED MANUFACTURING CONSULTANT Office Visit [address] [address] Vicenta Early PA Sicca complex (Primary Dx); Polyarthralgia 09/01/[address] [address] MeVicenta hwang PA from Last 3 Months Surgical History [...] on file Legal Sex Female 9:00 AM ADVANCED MANUFACTURING CONSULTANT Gender Identity Female 09/06/2024 3:20 PM ADVANCED MANUFACTURING CONSULTANT Sexual Orientation Not on file Obstetrics History Last Filed Vital Signs Vital Sign Reading Time Taken Comments Blood Pressure 134/76 09/01/2024 10:16 AM ADVANCED MANUFACTURING CONSULTANT Pulse 106 09/01/2024 10:16 AM ADVANCED MANUFACTURING CONSULTANT Temperature 36.4 C (97.6 F) 07/01/2024 9:59 AM ADVANCED MANUFACTURING CONSULTANT Respiratory Rate 18 07/01/2024 9:59 AM ADVANCED MANUFACTURING CONSULTANT Oxygen Saturation 96% 09/01/2024 10:16 AM ADVANCED MANUFACTURING CONSULTANT Inhaled Oxygen Concentration - - Weight 127 kg (280 lb) 09/01/2024 10:16 AM ADVANCED MANUFACTURING CONSULTANT Height 177.8 cm (5' 10 ) 09/01/2024 10:16 AM ADVANCED MANUFACTURING CONSULTANT Body Mass Index 40.18 09/01/2024 10:16 AM ADVANCED MANUFACTURING CONSULTANT Plan of Treatment Health Maintenance Due Date [...] risk series) 11/18/2020 10/21/2020, 09/28/2020 Influenza Vaccine (Season Ended) 2025 06/04/2020 HPV Vaccines Aged Out No longer eligi ble based on patient's age to complete this topic Procedures Procedure Name Priority Date/Time Associated Diagnosis Comments SCAN - RADIOLOGY/IMAGING 09/16/2024 4:34 PM ADVANCED MANUFACTURING CONSULTANT US HAND COMPLETE Schedule Routine, Read Routine (OP Routine) 09/08/2024 11:12 AM ADVANCED MANUFACTURING CONSULTANT Sicca complex Polyarthralgia ERYTHROCYTE SEDIMENTATION RATE Routine 09/01/2024 11:37 AM ADVANCED MANUFACTURING CONSULTANT Sicca complex Polyarthralgia CRP (ACUTE PHASE) Routine 09/01/2024 11: 37 AM ADVANCED MANUFACTURING CONSULTANT Sicca complex Polyarthralgia COMPREHENSIVE METABOLIC PANEL Routine 09/01/2024 11:37 AM ADVANCED MANUFACTURING CONSULTANT Sicca complex Polyarthralgia CBC WITH AUTO DIFFERENTIAL Routine 09/01/2024 11:37 AM ADVANCED MANUFACTURING CONSULTANT Sicca complex Polyarthralgia MISCELLANEOUS LAB TEST Routine 09/01/2024 10:09 AM ADVANCED MANUFACTURING CONSULTANT Sicca complex Polyarthralgia from Last 3 Months Results * SCAN - RADIOLOGY/IMAGING (09/16/2024 4:34 PM ADVANCED MANUFACTURING CONSULTANT) Anatomical Region Laterality Modality Other Vicenta LANDA Final Result * US Hand Complete (09/08/2024 11:12 AM ADVANCED MANUFACTURING CONSULTANT) Anatomical Region Laterality Modality Hand N/A Ultrasound Issac Amador MD [facility] [place]EDURES Final Result * (ABNORMAL) CBC with auto differential (09/01/2024 11:37 AM ADVANCED MANUFACTURING CONSULTANT) WBC 7.9 3.8 - 10.8 Thousand/u L [...] [facility] Blood 09/01/2024 11:3 7 AM ADVANCED MANUFACTURING CONSULTANT 09/01/2024 11:37 AM ADVANCED MANUFACTURING CONSULTANT us Issac Amador MD LAB BLOOD ORDERABLES Final Res ult [facility] [address] [address] [place] [phone] * Erythrocyte sedimentation rate (09/01/2024 11:37 AM ADVANCED MANUFACTURING CONSULTANT) Pathologist [facility] Erythrocyte sedimentation rate 9 < OR = 20 mm/h [facility] Blood 09/01/2024 11:3 7 AM ADVANCED MANUFACTURING CONSULTANT 09/01/2024 11:37 AM ADVANCED MANUFACTURING CONSULTANT Issac Amador MD LAB BLOOD ORDERABLES Final Res ult Performing Organization Address [facility] de Phone Number [facility] [address] [place] [address] * CRP (acute phase) (09/01/2024 11:37 AM ADVANCED MANUFACTURING CONSULTANT) Pathologist [facility] C-RP <3.0 <8.0 mg/L [facility] Blood 09/01/2024 11:3 7 AM ADVANCED MANUFACTURING CONSULTANT 09/01/2024 11:37 AM ADVANCED MANUFACTURING CONSULTANT Issac Amador MD LAB BLOOD ORDERABLES Final Res ult Performing Organization Address [facility] de Phone Number [facility] [address] [place] [address] * Comprehensive metabolic panel (09/01/2024 11:37 AM ADVANCED MANUFACTURING CONSULTANT) Pathologist [facility] Glucose 71 65 - 99 mg/dL [...] [facility] Blood 09/01/2024 11:3 7 AM ADVANCED MANUFACTURING CONSULTANT 09/01/2024 11:37 AM ADVANCED MANUFACTURING CONSULTANT Issac Amador MD LAB BLOOD ORDERABLES Final Res ult Performing Organization Address [facility] de Phone Number [facility] [address] [place] [address] * AVISE CTD - Miscellaneous Test (09/01/2024 10:09 AM ADVANCED MANUFACTURING CONSULTANT) Miscellaneous Issac Amador MD LAB BLOOD ORDERABLES Final Res ult Performing Organization Address [facility] de Phone Number EXTERNAL LAB from Last 3 Months Insurance [facility] [employer] [address] [place] [address] Physcient [place]ICE [place] [facility] [address] [place] [address] [employer] [place] [facility] [facility] Care Teams Steam Heating Installer Relationship Specialty Start Date End Date Saul Ruelas MD PCP - General Family Medicine 08/25/20 Abiodun Red MD [address] [place] [address] Referring Physician Neurology 11/27/22 Issac Amador MD [facility] [place] [address] Consulting Physician Rheumatology 07/23/24
--- OUTSIDE RECORDS SUMMARY | 2024-10-23 01:19 | XMS_ITS | Data Portability ---
Author Organization [place] [facility] [place] [facility] Address [address] [place] [address] Care Team Providers Care Spanish Moss Picker Name Role Phone SMITH Primary Care Provider [phone] Assessment Encounter Date Assessment Date Assessment LastModified [...] tablet 2022 023 [facility]UL[facility], [address] [place] [address], [address], 06/04/2023 10:27:07 Lipitor 80 mg tablet 2022 023 [facility] #[id number], [address], [place], [id number], 06/04/2023 10:27:11 Bystolic 5 mg tablet 2022 023 [facility], [address] [place] [address], [id number], 06/04/2023 10:27:08 Lasix 40 mg tablet 2022 023 [facility], [address] [place] [address], [address], 06/04/2023 10:27:08 Lasix 20 mg tablet 2022 023 [facility] #[id number], [address], [place], [id number], 02/06/2023 18:37:03 Patient TargetsNo targets recorded. Patient Instructions Encounter Date Encounter Id Patient Instructions Last Modified By Organization Details Last Modified Time 06/04/2023 [id number] Low cholesterol diet advised Low sodium diet advised. [email or web address] Not available 06/04/2023 10:26:59 12/06/2023 [id number] Low cholesterol diet advised Low sodium diet [...] record ed. est [facility] [address], [place], [address], 08/05/2023 14:55:01 12/11/19 24 12/06/2023 elect rocar diogr am No observ ation record ed. [email or web address] Not Available 2023 18:13:40 06/03/20 24 06/03/2024 elect julianne mcmahon am No observ ation record ed. [email or web address] Not Available 2023 18:04:05 Result Notes None recorded. Problems Name Problem SNOMED Code Status Onset Date Resolution Date Notes Provider Name and Address Organization Details Recorded Time Edema 717685159 Active 2022 Cooper Mesto null, [place] - [facility] 3 12:39:45 Atypical chest pain 078877213 Active 2022 Cooper [place] - [facility] 3 12:39:54 Dyspnea on exertion 35864086 Active 2022 Cooper Mesto null[place] [facility] 3 12:40:00 Dyslipidemia 296775563 Active 2023 Cooper [place] [facility] 4 19:58:53 Essential hypertension 83974105 Active 2023 Cooper [place] [facility] 4 19:59:11 History of cerebrovascula r accident 029169742 Active 2023 Cooper Mesto null[place] [facility] 4 19:59:27 Problem Notes None recorded. Procedures Surgical History Date Name Laterality Status Provider Name and Address Organization Details Recorded Time operation on stomach completed Kenneth Messally [place] [facility] 05/25/2023 12:52:55 Imaging Results Imaging Date Name Status LastModified by Organization Details LastModified Time 02/06/2023 electrocardiogram completed Informa tion not available 02/07/2023 11:05:46 03/24/2023 lexiscan cardiolite stress test (PROC) completed Information not available 05/03/2023 14:51:42 07/23/2023 , echocardiogram completed [facility] [address], [place], [address], 08/05/2023 14:55:01 12/06/2023 electrocardiogram completed [email or web address] Informa tion not available 12/18/2023 18:13:40 06/03/2024 [...] Updated DateTime 3 177.8 cm 45.6 kg/m2 482503. 37 g 102 /min 18 /min 93 % 93 % Zen Roche [facility] 3 18:10:41 Date Recorded Body height Heart rate Oxygen saturation Oxygen saturation in Arterial blood by Pulse oximetry Body mass index (BMI) Body weight Systolic blood pressure Diastolic blood pressure Provider Name and Address Organization Details Last Updated DateTime 3 177.8 cm 84 /min 87 % 87 % 42.9 kg/m2 824947. 12 g 139 mm[Hg] 86 mm[Hg] Fay Carrero [facility] 3 09:40:23 Date Recorded Body height Body mass index (BMI) Body weight Heart rate Oxygen saturation Oxygen saturation in Arterial blood by Pulse oximetry Systolic blood pressure Diastolic blood pressure Provider Name and Address Organization Details Last Updated DateTime 4 177.8 cm 41.1 kg/m2 489130. 93 g 76 /min 97 % 97 % 108 mm[Hg] 72 mm[Hg] Kady Lolly [facility] 4 10:18:10 Date Recorded Body height Body mass index (BMI) Body weight Heart rate Oxygen saturation Oxygen saturation in Arterial blood by Pulse oximetry Systolic blood pressure Diastolic blood pressure Provider Name and Address Organization Details Last Updated DateTime 4 177.8 cm 40.3 kg/m2 972300. 46 g 107 /min 95 % 95 % 151 mm[Hg] 97 mm[Hg] Fay Carrero [facility] 4 11:41:36 Social History None recorded. Functional Status None recorded. Mental Status None recorded. Family History Nothing Reported. Medical History No medical history recorded. Gynecological HistoryNo gynecological history recorded. Obstetrics History GPAL:G 0 P 0 0 0 0 Past Encounters Encounter ID Performer Location Encounter Start Date Encounter Closed Date Diagnosis/Indication Diagnosis SNOMED-CT Code Diagnosis ICD10 Code Diagnosis Note [id number] Sixto Feldman MD [place] [facility] [address] [place] [address] 02/06/2023 17:16:06 02/06/2023 18:36:32 Edema 494643909 R60.9 will start lasix 20 mg dailywe might consider jardiance in the future Atypical chest pain 1025 77377 R07.89 Treadmill Myoview Stress test, has high De Smet Risk score. Has Known CAD, or CAD risk equivalent . To look for any ischemia. Dyspnea on exertion 6084 5006 R06.09 will do echo to the see the structure of the heart [id number] [facility] [place] [address] 06/04/2023 09:27:03 06/04/2023 10:31:41 Edema 989553778 R60.9 continue lasix 40 mg dailywe might consider jardiance in the future Dyspnea on exertion 6084 5006 R06.09 will do echo to the see the structure of the heart Atypical chest pain 1025 67697 R07.89 negative stress test 3contin ue with monitoring continue with baby aspirin Dyslipidemia 776306842 E 78.5 *Last LDL was 107 done on 03/29/23.P t takes lipitor 80 mg daily.will start her on zetia 10 mg dailyTG Is 223 done 03/2023 add fish oil BID daily Essential hypertension 66264241 I10 BP mildly elevated today, she will bring number with her next timecontin ue with bystolic 5 mg daily History of cerebrovascular accident 340675698 Z86.73 continue with aspirin [id number] [facility] [place] [address] 12/06/2023 10:00:34 12/06/2023 10:41:39 Edema 385107962 R60.9 continue lasix 40 mg daily Dyslipidemia 277981116 E 78.5 *Last LDL was 107 done on 03/29/23.P t takes lipitor 80 mg daily.cont inue with zetia 10 mg dailyTG Is 223 done 03/2023 continue fish oil BID dailyrepea t lipid panel Essential hypertension 33148211 I10 BP is well controlled continue with bystolic 5 mg daily History of cerebrovascular accident 444623039 Z86.73 continue with aspirin [id number] Sixto Feldman MD [place] [facility] [place] [address] 06/03/2024 11:18:39 06/03/2024 12:28:23 Edema 804744237 R60.9 continue lasix 40 mg daily Dyslipidemia 311553379 E 78.5 *Last LDL was 107 done on 03/29/23.P t takes lipitor 80 mg daily.cont inue with zetia 10 mg dailyTG Is 223 done 03/2023 continue fish oil BID dailyrepea t lipid panel Essential hypertension 70319915 I10 BP is well controlled continue with bystolic 5 mg daily History of cerebrovascular accident 670565218 Z86.73 continue with aspirin Health Concerns Section Related Observation LastModified by Organization Detai ls LastModified Time None Recorded Concern Status LastModified by Organization Details LastModified Time None Recorded Advance Directives Directive None Recorded Payers Encounter Date Sequence Insurance Name Policy Number Policy Wilks Covered Member ID Wilks Member ID Guarantor Name 02/06/2023 2 [employer] () Holly Debby [id number] Holly RandallDebby 06/04/2023 2 [employer] () Holly Debby [id number] Holly RandallDebby 06/04/2023 1 [place] [id number] Damir S Debby [id number] Holly RandallDebby 12/06/2023 2 [employer] [place] [employer] [place] () Holly Debby [id number] Holly Debby 12/06/2023 1 [place] [id number] Damir S Debby [id number] Holly Debby 06/03/2024 2 [employer] [place] () Holly Debby [id number] Holly RandallDebby 06/03/2024 1 [place] [id number] Damir S Debby [id number] Holly Black Notes Date Note Type Note [...] .Pt takes. Sixto Feldman MD [address] [place], [address], [facility] 02/06/2023 18:37:01 [...] 0.70 BUN 11 GL 93 CA 9.7,CK Total-159,VPMM9J-9.3,L IPID-CHOL 187 HDL 42 LDL 107 TRIG [...] 0.70 BUN 11 GL 93 CA 9.7,CK Total-159,HGYX1P-4.3,L IPID-CHOL 187 HDL 42 LDL 107 TRIG 223 *Had Adequate Stress with Lexiscan on 03/24/23 with Normal LV systolic function. LVEF: 60%. She occasional with chest pain and dyspnea on exertion. SEAN hong, [place] - [facility] 12/06/2023 10:39:03 06/03/2024 text/html [...] systolic function. LVEF: 60%. Sixto Feldman MD [address] [place], [address], [facility] - [facility] 06/03/2024 12:24:17 OBGyn Episode No OBEpisode recorded.
--- OUTSIDE RECORDS SUMMARY | 2024-10-23 01:19 | XMS_ITS | Encounter Summary ---
Author Organization [facility] Address [address] [place] [address] Care Team Providers Care Grocery Store Associate Name Role Phone Saul Ruelas MD Primary Care Provider [phone] Robert García MD Primary Care Provider + Encounter Details Date Type Department Care Team (Late st Contact Info) Description 10/12/2020 Prep for Procedure [facility] [place] [address] [id number] Sujey Yap, N[place] [address] [place] [phone] Social History Tobacco Use Types Packs/Day Years [...] on file Legal Sex Female 9:56 AM PATIENT OFFICE REP Gender Identity Not on file Sexual Orientation [...] Description 12/03/2024 10:00 AM CDT Office Visit [facility] - [facility] [address] [facility], [address] [place] [address] Abiodun Red MD [address] [facility] [address] documented as of this encounter Visit Diagnoses Not on filedocumented in this encounter Care Teams Grocery Store Associate Relationship Specialty Start Date End Date Saul Ruelas MD [address] [facility] [address] [place] [phone] PCP - General FAMILY PRACTICE 10/12/20 08/16/23 Robert García MD [address] [facility] [address] [place] [address] PCP - General 08/17/23 documented as of this encounter
--- OUTSIDE RECORDS SUMMARY | 2024-10-23 01:19 | XMS_ITS | Encounter Summary ---
Author Organization [facility] Address [address] [place] [address] Care Team Providers Care Bus Driver Name Role Phone Robert García MD Primary Care Provider + Encounter Details Date Type Department Care Team (Late Contact Info) Description 01/22/2024 [facility] - [address], [address] [place] [phone] [employer], [facility] Provider prescription Social History Tobacco Use Types [...] on file Legal Sex Female 9:56 AM CARPET INSPECTOR Gender Identity Not on file Sexual Orientation Not on file documented as of this encounter Plan of Treatment Upcoming Encounters Date Type Department Care Team (Late Contact Info) Description 12/03/2024 10:00 AM CDT Office Visit [facility] - [address], [address] [place] [phone] Abiodun Red MD [address] [place] [address] documented as of this encounter Visit Diagnoses Not on filedocumented in this encounter Additional Health Concerns Assessment Noted Time PHQ-9 Depression Total Score: 7 06/02/20 22 9:57 AM CARPET INSPECTOR documented as of this encounter Care Teams Bus Driver Relationship Specialty Start Date End Date Robert García MD 3 [facility] [place] [address] [place] [phone] PCP - General 08/17/23 documented as of this encounter
--- OUTSIDE RECORDS SUMMARY | 2024-10-23 01:19 | XMS_ITS | Encounter Summary ---
Author Organization [facility] Address [address] [place] [address] Phone Care Team Providers Care Heel Sprayer First Name Role Phone Saul Ruelas MD Primary Care Provider [phone] Abiodun Red MD Unavailable [phone] Issac Amador MD Unavailable [phone] Encounter Details Date Type Department Care Team (Late st Contact Info) Description 09/08/2024 Results Follow-Up [facility] [address] [place] [phone] Issac Amador MD [address] [place] [address] Social History Tobacco Use Types Packs/Day [...] on file Legal Sex Female 9:00 AM FURNACE PACKER Gender Identity Female 09/06/2024 3:20 PM FURNACE PACKER Sexual Orientation Not on file documented as of this encounter Plan of Treatment Not on file documented as of this encounter Visit Diagnoses Not on filedocumented in this encounter Care Teams Heel Sprayer First Relationship Specialty Start Date End Date Saul Ruelas MD PCP - General Family Medicine 08/25/20 Abiodun Red MD [address] [place] [address] Referring Physician Neurology 11/27/22 Issac Amador MD [address] [place] [address] Consulting Physician Rheumatology 07/23/24 documented as of this encounter
--- OUTSIDE RECORDS SUMMARY | 2024-10-23 01:19 | XMS_ITS | Referral Summary ---
Author Organization [address] Address [address] [address] Care Team Providers Care Lidding Machine Operator Name Role Phone Saul Ruelas MD Primary Care Provider + [phone] Abiodun Red MD Unavailable [phone] Issac Amdaor MD Unavailable [phone] Encounters Date Type Department Care Team Description 09/16/2024 Orders Only [facility] [address] [place] [phone] Vicenta Early PA 09/08/2024 Results Follow-Up [facility] [address] [place] [phone] Issac Amador MD 09/08/2024 10:21 AM INTERNAL RECRUITER - 09/08/2024 11:59 PM INTERNAL RECRUITER Hospital Encounter [address] [address] Sicca complex; Polyarthralgia Discharge Disposition: Discharge to home or self care 09/01/[address] [address] Vicenta Early PA 09/01/2024 10:30 AM INTERNAL RECRUITER Office Visit [facility] [address] [place] [phone] Vicenta Early PA Sicca complex (Primary Dx); [...] seen Assessment & Plan (09/01/2024 12:03 PM INTERNAL RECRUITER): 44-year-old female with PMHx of HTN, HLD, [...] dosing due to hx GERD. Will contact assistant cross country coach for records. Follow up in 2 weeks. Sooner if needed. Seen with Dr. Amador. TONY (obstructive sleep apnea) 10/05/2020 Assessment & Plan (07/01/2024 10:25 AM INTERNAL RECRUITER): Patient continue with CPAP at 8 cm water pressure while sleeping. She was intolerable of higher pressures in the past. DME is adapt. Assessment & Plan (06/28/2023 11:59 AM INTERNAL RECRUITER): Due to continued symptoms, the patient will continue CPAP at 8 cm water pressure. The patient has an elevated AHI, however she is intolerant of higher pressure. Denied need for supplies. DME [facility] Assessment & Plan (06/27/2022 12:02 PM INTERNAL RECRUITER): Patient continue to wear CPAP at 8 cm water pressure while sleeping. Her DME is [facility]. The patient did not tolerate an increase in her pressures in the past. Assessment & Plan (06/30/2021 11:05 AM INTERNAL RECRUITER): Patient continue to wear CPAP at 8 [...] masks. The patient denied need for supplies. [employer]. The patient and I discussed the recall [...] her mouth coming open while sleeping. The [employer] company is [employer]. The patient is benefitting from CPAP therapy. Other insomnia 10/05/2020 Assessment & Plan (07/01/2024 10:25 AM INTERNAL RECRUITER): The patient continues with Lunesta 3 mg on most nights. Assessment & Plan (06/28/2023 11:58 AM INTERNAL RECRUITER): Due to continued symptoms, the patient will continue Lunesta 3 mg nightly. I have refilled the medication and will refill for 1 year Patient is aware that she should wear her CPAP machine if taking the medication. Assessment & Plan (06/27/2022 12:02 PM INTERNAL RECRUITER): The patient will continue with Lunesta 3 mg p.o. at bedtime to treat insomnia. Assessment & Plan (06/30/2021 11:04 AM INTERNAL RECRUITER): The patient will continue with Lunesta 3 [...] on file Legal Sex Female 9:00 AM INTERNAL RECRUITER Gender Identity Female 09/06/2024 3:20 PM INTERNAL RECRUITER Sexual Orientation Not on file Last Filed Vital Signs Vital Sign Reading Time Taken Comments Blood Pressure 134/76 09/01/2024 10:16 AM INTERNAL RECRUITER Pulse 106 09/01/2024 10:16 AM INTERNAL RECRUITER Temperature 36.4 C (97.6 F) 07/01/2024 9:59 AM INTERNAL RECRUITER Respiratory Rate 18 07/01/2024 9:59 AM INTERNAL RECRUITER Oxygen Saturation 96% 09/01/2024 10:16 AM INTERNAL RECRUITER Inhaled Oxygen Concentration - - Weight 127 kg (280 lb) 09/01/2024 10:16 AM INTERNAL RECRUITER Height 177.8 cm (5' 10 ) 09/01/2024 10:16 AM INTERNAL RECRUITER Body Mass Index 40.18 09/01/2024 10:16 AM INTERNAL RECRUITER Plan of Treatment Not on file Procedures Procedure Name Priority Date/Time Associated Diagnosis Comments SCAN - RADIOLOGY/IMAGING 09/16/2024 4:34 PM INTERNAL RECRUITER US HAND COMPLETE Schedule Routine, Read Routine (OP Routine) 09/08/2024 11:12 AM INTERNAL RECRUITER Sicca complex Polyarthralgia ERYTHROCYTE SEDIMENTATION RATE Routine 09/01/2024 11:37 AM INTERNAL RECRUITER Sicca complex Polyarthralgia CRP (ACUTE PHASE) Routine 09/01/2024 11: 37 AM INTERNAL RECRUITER Sicca complex Polyarthralgia COMPREHENSIVE METABOLIC PANEL Routine 09/01/2024 11:37 AM INTERNAL RECRUITER Sicca complex Polyarthralgia CBC WITH AUTO DIFFERENTIAL Routine 09/01/2024 11:37 AM INTERNAL RECRUITER Sicca complex Polyarthralgia MISCELLANEOUS LAB TEST Routine 09/01/2024 10:09 AM INTERNAL RECRUITER Sicca complex Polyarthralgia from Last 3 Months Results * SCAN - RADIOLOGY/IMAGING (09/16/2024 4:34 PM INTERNAL RECRUITER) Anatomical Region Laterality Modality Other Vicenta LANDA Final Result * US Hand Complete (09/08/2024 11:12 AM INTERNAL RECRUITER) Anatomical Region Laterality Modality Hand N/A Ultrasound Issac Amador MD [facility] US PROCEDURES Final Result * (ABNORMAL) CBC with auto differential (09/01/2024 11:37 AM INTERNAL RECRUITER) WBC 7.9 3.8 - 10.8 Thousand/u L [...] [facility] Blood 09/01/2024 11:3 7 AM INTERNAL RECRUITER 09/01/2024 11:37 AM INTERNAL RECRUITER Issac Amador MD LAB BLOOD ORDERABLES Final Res ult Performing Organization Address [facility] Co de Phone Number [facility] [address] [place] [address] * Erythrocyte sedimentation rate (09/01/2024 11:37 AM INTERNAL RECRUITER) Erythrocyte sedimentation rate 9 < OR = 20 mm/h [facility] Blood 09/01/2024 11:3 7 AM INTERNAL RECRUITER 09/01/2024 11:37 AM INTERNAL RECRUITER Issac Amador MD LAB BLOOD ORDERABLES Final Res ult Performing Organization Address [facility] Co de Phone Number [facility] [address] [place] [address] * CRP (acute phase) (09/01/2024 11:37 AM INTERNAL RECRUITER) C-RP <3.0 <8.0 mg/L [facility] Blood 09/01/2024 11:3 7 AM INTERNAL RECRUITER 09/01/2024 11:37 AM INTERNAL RECRUITER Issac Amador MD LAB BLOOD ORDERABLES Final Res ult Performing Organization Address [facility] Co de Phone Number [facility] [address] [facility] [place] [address] * Comprehensive metabolic panel (09/01/2024 11:37 AM INTERNAL RECRUITER) Glucose 71 65 - 99 mg/dL [facility] [...] [facility] Blood 09/01/2024 11:3 7 AM INTERNAL RECRUITER 09/01/2024 11:37 AM INTERNAL RECRUITER us Issac Amador MD LAB BLOOD ORDERABLES Final Res ult [facility] [address] [place] [address] * [facility] CTD - Miscellaneous Test (09/01/2024 10:09 AM INTERNAL RECRUITER) Miscellaneous us Issac Amador MD LAB BLOOD ORDERABLES Final Res ult EXTERNAL LAB from Last 3 Months Insurance [facility] [address] [place] [address] [employer] [facility] [address] [place] [address] BLUE ACCESS [facility] Care Teams Lidding Machine Operator Relationship Specialty Start Date End Date Saul Ruelas MD PCP - General Family Medicine 08/25/20 Abiodun Red MD [address] [place] [address] Referring Physician Neurology 11/27/22 Issac Amador MD [address] [place] [address] Consulting Physician Rheumatology 07/23/24
--- OUTSIDE RECORDS SUMMARY | 2024-10-23 01:19 | XMS_ITS | Clinical Summary ---
Author Organization [facility] Care Team Providers Care Forest Fire Prevention Specialist Name Role Phone Unavailable Primary Care Provider [...]
--- OUTSIDE RECORDS SUMMARY | 2024-10-23 01:19 | XMS_ITS ---
Author Organization [facility] Address [address] [place], [place] [address] Care Team Providers Care Leasing Sales Consultant Name Role Phone KENYON FORREST Unavailable [phone] Darci Woody Unavailable Unavailable Allergies No Known Allergies REASON FOR VISIT *Injection follow-up Medications Medication SIG (Take, Route, Frequency, Duration) Notes Start Date End Date Status Medrol 4 MG as directed Orally 04/24/2024 Active Encounters Encounter Location Date Provider Diagnosis [facility] [place] [address] [place], [place] [phone] 07/24/2024 KENYON FORREST Tailor's bunion of right [...] Details Provider Name:KENYON SPIVEY, 10/23/2024 01:30:00 PM, [address], [place], [address], Provider Name:KENYON SPIVEY, 10/30/2024 08:40:00 AM, [address] [facility], [place], [place], [phone], Progress Notes * ANGELICA BLACK LDOB: 0 (44 yo F)Acc No.[id number]:07/24/2024 Patient: Michael ANGELICA VIDALES Estefany Provider: Kan Forrest DPM :1980 A ge:44 Y S ex:Female Date:07/24/2024 Address:[address] [place] [address] , [facility] Subjective: * Chief Complaints: * * Injection [...] RT * Billing Information: * Visit Code: 96873 Office Visit, Est Pt., Level 3. Modifiers: 25 * Procedure Codes: DRAIN/INJECT, JOINT/BURSA. Modifiers: RT * OWING MACHINE OPERATOR Sign off status: Completed true * Provider: Kan Forrest DPM Date: 0 07/24/2024 Generated for Dalia grace/Valeri/Mary on: 0 10/23/2024 01:19 AM CDT History and Physical Notes * [...]
--- OUTSIDE RECORDS SUMMARY | 2024-10-23 01:20 | XMS_ITS | Clinical Summary ---
Author Organization [facility] Address [address] [place] [address] Care Team Providers Care Wire Bound Box Machine Helper Name Role Phone Robert García MD [...] Department Care Team Description 08/27/2024 11:00 AM DECISION SCIENCE ANALYST Office Visit [facility] Multispecialty Care - [facility] [address] [facility], [address] [place] [id number] Abiodun Red MD Botox (botox 155 migraines/) 08/27/2024 Scan [facility] Scanned, [facility] 08/27/2024 Travel 08/18/2024 Telephone [facility] - [address] [place] [address] Abiodun Red MD Appointment Request 08/07/2024 Scan [facility] Scanned, [facility] from Last 3 Months Immunizations Name Administration [...] on file Legal Sex Female 9:56 AM DECISION SCIENCE ANALYST Gender Identity Not on file Sexual Orientation Not on file Last Filed Vital Signs Vital Sign Reading Time Taken Comments Blood Pressure 123/75 08/27/2024 11:15 AM DECISION SCIENCE ANALYST Pulse 90 08/27/2024 11:15 AM DECISION SCIENCE ANALYST Temperature 36.2 C (97.2 F) 06/04/2024 9:49 AM DECISION SCIENCE ANALYST Respiratory Rate 16 10/11/2022 1:02 PM CDT Oxygen Saturation 97% 08/27/2024 11:15 AM DECISION SCIENCE ANALYST Inhaled Oxygen Concentration - - Weight 131.1 kg (289 lb) 08/27/2024 11:15 AM DECISION SCIENCE ANALYST Height 177.8 cm (5' 10 ) 06/04/2024 9:49 AM DECISION SCIENCE ANALYST Body Mass Index 41.47 06/04/2024 9:49 AM DECISION SCIENCE ANALYST Plan of Treatment Upcoming Encounters Date Type Department Care Team (Late st Contact Info) Description 12/03/2024 10:00 AM CDT Office Visit [facility] Multispecialty Care - [facility] [address] [facility], [address] [place] [address] Abiodun Red MD [address] [place] [address] Health Maintenance Due Date Last Done Comments [...] Every 5 Years 2010 Cervical Cancer Screening [facility] HPV 2010 Mammogram Screening 2020 COVID-19 Vaccine (3 - 2023-2 5 season) 2024 10/21/2020, 09/28/2020 PHQ-2 (Physician [place]) Completed 08/27/2024 HPV Vaccines Aged Out No [...] patient's age to complete this topic Insurance [facility] Care Teams Wire Bound Box Machine Helper Relationship Specialty Start Date End Date Robert García MD [address] [address] [place] [address] PCP - General 08/17/23
--- OUTSIDE RECORDS SUMMARY | 2024-10-23 01:20 | XMS_ITS | Encounter Summary ---
Author Organization [facility] Address [address] [place] [address] Care Team Providers Care Stationary Engineer Apprentice Name Role Phone Unavailable Primary Care Provider Unavailabl e Encounter Details Date Type Department Care Team (Late st Contact Info) Description 03/02/2022 Lab Requisition [facility] [address], [place] [address] [place] [address] [place] [address] Social History Tobacco Use Types Packs/Day [...] AM CDT) Case Report Dermatopathology Report Case: [id number] Authorizing Provider: Niles George MD Collected: 03/02/2022 12:00 AM Ordering Location: [facility] Received: 03/02/2022 [...] characteristic determined by the Dermatopathology Laboratory at [facility], directed by Dr. Miguel Viramontes. These tests need not be, and therefore are not, approved by the [place] Food and Drug Administration. The tests are used for clinical purposes. Billing Codes Specimen Charges Stain Charges 89865 1 2 6:16 PM CDT DERMATOPATHOLOGY LABORATORY Embedded Images 2 6:16 PM CDT DERMATOPATHOLOGY LABORATORY Pathology/Cytolog y TISSUE SPECIMEN FROM SKIN / Unknown 03/02/2022 03/02/2022 5:15 PM CDT Niles George MD LAB - PATHOLOGY/CYTO LOGY ORDERABLES DERMATOPATHOLOGY LABORATORY [facility] - Department of Dermatology [address], [address] [phone] documented in this encounter Visit Diagnoses Not on filedocumented in this encounter
--- OUTSIDE RECORDS SUMMARY | 2024-10-23 01:20 | XMS_ITS | Continuity of Care Document ---
Author Organization [facility] Address [address] [place] [address] Phone Care Team Providers Care Coffee Machine Technician Name Role Phone Miguel Harrison PT [...] Diagnoses Date Provider Providers Copied on Encounter [facility], [address], [place], [place], [id number], tel:[phone] [facility] No Information Hunter Rivera. . Referring Provider: Eddie Caceres, [address] [place], [address]. tel:[phone] [facility], [address], [id number], tel:[phone] [facility] No Information Hunter Contreras . Referring Provider: Eddie Caceres, [address] [place] [address], [id number]. tel:[phone] [facility] [address], [id number], tel:[phone] [facility] No Information Hunter Contreras . Referring Provider: Eddie Caceres, [address] [place] [address], [address]. tel:[phone] [facility] [address] [place] [address], [id number], tel:[phone] [facility] No Information Hunter Contreras . Referring Provider: Eddie Caceres, [address] [place] [address], [id number]. tel:[phone] [facility] [address] [place] [address], [id number], tel:[phone] [facility] No Information Hunter Contreras . Referring Provider: Eddie Caceres, [address] [place] [address], [id number]. tel:[phone] [facility] [address] [place] [address], [id number], tel:[phone] [facility] No Information Hunter Contreras . Referring Provider: Eddie Caceres, [address] [place] [address], [id number]. tel:[phone] Family History Family Member Type Diagnosis Age At Onset No Information Payers Payer name Insurance type Covered libertarian ID Authormichael andrade(s) No Information Social History Type Description Quantity Date Captured Comments Sex Female Smoking Status No Information Chief Complaint And Reason For Visit No Information Reason For Referral Reason For Referral No Information History Of Present Illness Encounter Date Complaint History Of Prese nt Illness No Information Functional Status Date Functional Assessmen t No Information Instructions Date Instruction Additional Infor candy Prescribed activity/exercise edu cation Related to Overweight Dietary needs education Related to Overweight Assessments Type Assessment Date No Information Patient Care Teams Name Effective Dates (start - stop) Status Members No Information
--- OUTSIDE RECORDS SUMMARY | 2024-10-23 01:20 | XMS_ITS | Clinical Summary ---
Author Organization [facility] Address [address] [place] [address] Care Team Providers Care Dog Raiser Name Role Phone Unavailable Primary Care Provider Unavailabl e Source Comments [facility],non-owned Affiliates and Associated Physician Practices is amultiple site organization consisting of ambulatory clinics and hospital sitesin [place], [place], [place] and [place]. This disclosure is being madepursuant to the Care Everywhere program and may not contain all information available regarding this patient. Last updated 18.[facility] [employer] Social History Tobacco Use Types Packs/Day Years [...] - 19+ 3-dose series) 1999 COVID-19 VACCINE (3 - 2023-2 5 season) 2024 10/21/2020, 09/28/2020 DEPRESSION SCREENING 07/16/2024 10/10/2022 INFLUENZA VACCINE (Season Ended) 2025 ZOSTER VACCINE (1 of 2) 2030 HIB [...]
--- OUTSIDE RECORDS SUMMARY | 2024-10-23 01:20 | XMS_ITS ---
Author Organization [facility] Address [address] [place], [place] [id number] Care Team Providers Care Automation Test Engineer Name Role Phone KENYON HARRIS Unavailable [phone] Darci Woody Unavailable Unavailable REASON FOR VISIT surgery Encounters Encounter Location Date Provider Diagnosis [facility] [address] [place], [place] [id number] 10/01/2024 KENYON HARRIS Plan Of Treatment Next Appt Details Provider Name:KENYON SPIVEY, 10/23/2024 01:30:00 PM, [address], [place], [address], Provider Name:KENYON C JULIO SPIVEY, 10/30/2024 08:40:00 AM, [address] [place], [facility] [address], [place], [place], [id number], Progress Notes * ANGELICA BLACK LDOB: 0 (44 yo F)Acc No.[id number]:10/01/2024 Patient: Michael ANGELICA VIDALES :1980 A ge:44 Y S ex:Female Address:[address] [place], [address] * true * Date: Generated for Printi ng/Faxing/eTransmitting on: 0 10/23/2024 01:20 AM CDT
--- OUTSIDE RECORDS SUMMARY | 2024-10-23 01:20 | XMS_ITS ---
Author Organization [facility] Address [address] [place], [place] [id number] Care Team Providers Care Sleeper Cutter Name Role Phone KENYON FORREST Unavailable [phone] Darci Woody Unavailable Unavailable Allergies No Known Allergies REASON FOR VISIT *Surgery consult bunion Medications Medication SIG (Take, Route, Frequency, Duration) Notes Start Date End Date Status Medrol 4 MG as directed Orally 04/24/2024 Active Encounters Encounter Location Date Provider Diagnosis [facility] [address] [place], [place] [id number] 08/14/2024 KENYON FORREST Tailor's bunion of right [...] 10/23/2024 01:30:00 PM, [address], [place], [address], Provider Name:KENYON Moya JULIO SPIVEY, 10/30/2024 08:40:00 AM, [address], [facility] [address], [place], [place], [id number], Progress Notes * ANGELICA BLACK LDOB: 0 (44 yo F)Acc No.[id number]:08/14/2024 Patient: Michael ANGELICA VIDALES Provider: Kan Forrest DPM :1980 A ge:44 Y S ex:Female Date:08/14/2024 Address:[address] [place] [address] , [id number] Subjective: * Chief Complaints: * * Surgery consult bunion * HPI: H [facility] [...] RT * Billing Information: * Visit Code: 26315 Office Visit, Est Pt., Level 4. * Procedure Codes: 52582 X-RAY EXAM OF FOOT. Modifiers: RT * MAKER Sign off status: Completed true * Provider: Kan Forrest DPM Date: 08/14/2024 Generated for Dalia grace/Valeri/Ashwiniitting on: 0 10/23/2024 01:20 AM CDT History and Physical Notes * [...]
--- OUTSIDE RECORDS SUMMARY | 2024-10-23 01:20 | XMS_ITS | Continuity of Care Document ---
Author Name [facility] Organization [facility] Care Team Providers Care Wave Solder Offbearer Name Role Phone [facility] Unavailable Unavailable Problems Combined list of problems from 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 It does not include entries that were removed or entered in error. Problem Status Onset Date Problem Type Date of Resolution Comments Source Abdominal pain Active 2024 Diagnosis 8442H-Vj-H-37 [facility] [facility] Obstructive sleep apnea syndrome5 Active 2020 Condition Outside Source Comment: Last Assessment & Plan: Patient continue to wear CPAP at 8 cm water pressure while sleeping. Her DME is adapt . The patient did not tolerate an increase in her pressures in the past. 5979P-Gu-R-37 [address] Juan MgrpOfe Adjustment disorder with mixed emotional features Active 2018 Condition 0916N-Ys-A-37 [facility] Degeneration of intervertebral disc Active 2018 Condition 2839I-Nk-A-37 5[facility] Med[facility] Elevated blood pressure1 Active 2018 Condition Outside Source Comment: Overview: RTC FOR 3 DAY BP CHECK WHEN WELL RTC FOR 3 DAY BP CHECK WHEN WELL 6516E-Dk-SMeredith37 [address] David Gastroesophageal reflux disease2 Active 2018 [...] 2. Consider Sommer fundoplication 3. Continue PPI 7980F-Hz-K-37 [facility] Lumbar radiculopathy Active 2018 Condition 6485R-Yj-Q-37 [facility] Migraine Active 2018 Condition 8174R-Hv-S-37 [facility] Muscle weakness of limb Active 2018 Condition 8526Z-Ht-F-37 [facility] Central sleep apnea syndrome Active 2018 Condition 9016D-Se-J-37 [facility] Insomnia Active 2018 Condition 9080H-Dz-S-37 [facility] Posttraumatic stress disorder Active 2018 Condition 2903G-Xc-E-37 [facility] Generalized anxiety disorder Active 2018 Condition 2948C-Rg-F-37 [facility] Panic attack Active 2018 Condition 4378E-Vu-P-37 [facility] Lumbar spondylosis Active 2018 Condition 5503S-Si-T-37 [facility] Spasm Active 2018 Condition 4761X-Ib-O-37 [facility] Thompson's neuroma of right foot Active 2018 Condition 4407K-Ri-G-37 [facility] Anxiety disorder Active 2015 Condition 7719J-Tl-B-37 [facility] 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 Condition 9155O-Dp-E-37 [facility] Severe major depression, single episode, without psychotic features Active 2015 Condition 5381F-Zs-D-37 [facility] Backache Active 2015 Condition 8860R-Ww-G-37 [facility] Ischemic stroke3 Active 2015 Condition Outside Source Comment: Overview: Left MCA-September 2012; Acute ischemic left parietal stroke-October 20156348R-Zc-X-37 [facility] Migraine without aura, not refractory4 Active 2015 Condition Outside Source Comment: Overview: Problem 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 8143S-Ye-U-37 [facility] Sleep apnea Active 2015 Condition 9933B-Ot-C-37 [facility] Fibromyalgia Active Condition 6130-Af- C-37 [facility] 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 Immunization Series Date Given Administered By Site Reaction Lot Number CVX Code Drug Retort Firer Status Comments Source COVID Vaccine Pfizer 2020 JOSHUAPCRUM [id number] complet ed Result Comment: Route: Unknown Manufactu rer: [employer], Hallspot (PFR) 6130C-A f-C-375 Th [facility] COVID Vaccine Pfizer 2020 JOSHUAPCRUM [id number] 208 complet ed Result Comment: Route: Unknown Manufactu rer: [employer], Hallspot (PFR) 6130C-A f-C-375 Th [facility] influenza, injectable, quadrivalent- pf 2019 JOSHUAPCRUM 150 complet ed Result Comment: Unit: Unknown Manufactu rer: () 6130C-A f-C-375 Th [facility] Emirati Encephalitis IM 2018 zzRig ht Arm [id number] 134 Valneva complet ed [place] Encephali tis IM 05/05/19 Given Ambulat ory Pharmac y measles/mumps /rubella virus vaccine 2018 zzRig ht Arm [id number] Merck & Company Inc complet ed measles/m umps/rube lla virus vaccine 05/05/19 Given Ambulat ory Pharmac y influenza, injectable, quadrivalent- p[id number] 150 Seqirus complet ed influenza , injectabl e, quadrival ent-pf 04/18/19 Given Ambulat ory Pharmac y influenza, injectable, quadrivalent- pf [facility] [id number] 150 GlaxoSmithKli ne complet ed influenza , injectabl e, quadrival ent-pf 06/05/18 Given Ambulat ory Pharmac y tetanus-dipht h toxoids (Td) adult/adol [facility] [id number] 09 sanofi pasteur complet ed tetanus-d iphth toxoids (Td) adult/ado l 03/04/18 Given Ambulat ory Pharmac y influenza, injectable, quadrivalent- [facility] [place] [id number] 150 GlaxoSmithKli ne complet ed influenza , injectabl e, quadrival ent-pf 06/19/17 Given Ambulat ory Pharmac y influenza, injectable, quadrivalent- [facility] [address] [facility] [place] [id number] 150 GlaxoSmithKli ne complet ed influenza , injectabl e, quadrival ent-pf 05/15/16 Given Ambulat ory Pharmac y influenza, live, intranasal,qu adrivalent 2014 [id number] 149 Medimmune Inc comple t ed influenza , live, intranasa l,quadriv alent 05/03/15 Given Ambulat ory Pharmac y influenza, live, intranasal,qu adrivalent 2013 [id number] 149 Medimmune Inc [facility] t ed influenza , live, intranasa l,quadriv alent 05/05/14 Given Ambulat ory Pharmac y influenza, live, intranasal,qu adrivalent 2012 [id number] 149 Medimmune Inc [facility] t ed influenza , live, intranasa l,quadriv alent 05/07/13 Given Ambulat ory Pharmac y influenza, seasonal, injectable [facility] [id number] 141 CSL Behring complet ed influenza , seasonal, injectabl e 05/28/12 Given Ambulat ory Pharmac y tetanus, diphtheria, acellular pertu is 2011 zzL t Arm [id number] 115 sanofi pasteur complet ed tetanus, diphtheri a, acellular pertussis 05/28/12 Given Ambulat ory Pharmac y tuberculin purified protein derivative 2010 zzLef t Arm [id number] 96 sanofi pasteur complet ed Patient Tolerance : Negative Ambulat ory Pharmac y influenza, seasonal, injectable-pf 2010 zzLef t Arm [id number] 140 CSL Behring complet ed influenza , [...] injectable 2008 127 complet ed Novel influenza -P9H3-21, injectabl e 05/19/09 Given Ambulat ory Pharmac y influenza virus vaccine,split 2008 zzMark Arm [id number] 1A 15 CSL Behring complet ed influenza virus vaccine,s plit 05/19/09 Given Ambulat ory Pharmac y influenza virus vaccine,split 2007 zzLef t Arm [id number] 1A 15 CSL Behring complet ed influenza virus vaccine,s plit 05/04/08 Given Ambulat ory Pharmac y rabies vaccine, IM 2007 zzLef t Arm [id number] 175 [employer] complet ed rabies vaccine, IM 10/14/07 Given Ambulat ory Pharmac y rabies vaccine, IM 2007 zzLef t Arm [id number] 175 [employer] complet ed rabies vaccine, IM 10/01/07 Given Ambulat ory Pharmac y rabies vaccine, IM 2007 zzLef t Arm [id number] 175 [employer] complet ed rabies vaccine, IM 09/24/07 Given Ambulat ory Pharmac y influenza virus vaccine,split 2007 zzLef t Arm [id number] 15 [employer] Cadd[employer] ne complet ed influenza virus vaccine,s plit [...] vaccine, whole virus 2005 zzRig ht Arm [id number] 16 sanofi pasteur complet ed influenza virus vaccine, whole virus 07/11/06 Given Ambulat ory Pharmac y Human Papillomaviru s,quadrivalen t(HPV4) 2005 zzRig ht Arm [id number] 62 Merck & Company Inc complet ed Human Papilloma virus,jazmín drivalent (HPV4) 07/11/06 Given Ambulat ory Pharmac y influenza virus vaccine, whole virus 2001 zzLef t Arm [id number] 16 [employer] complet ed influenza virus vaccine, whole virus 05/29/02 Given Ambulat ory Pharmac y tetanus-dipht h toxoids (Td) adult/adol 2001 zzLef t Arm [id number] 09 sanofi pasteur complet ed tetanus-d iphth toxoids (Td) adult/ado l 04/21/02 Given Ambulat ory Pharmac y Results Combined list of recent chemistry, hematology and other laboratory results from Department of Defense and Veterans Affairs, ranging from 15 months to all on record, depending upon the facility. Order Name Results Value Reference Range Date Interpretation Specimen Comments Source Chemistr y Beta hCG Subunit Qn.LC <1 m[iU]/mL 10/10 Result Comment: Female (Non-pregna nt) 0 - 5 (Postmenopa usal) 0 - 8 Female () Weeks of Gestation 3 6 - 71 4 10 - 750 5 036 - 4296 6 805 - 64599 7 0990 -629841 8 36290 -488568 9 04523 -707676 10 70232 -942662 12 74896 -344789 14 52566 - 65170 15 97639 - 21979 16 5518 - 99790 17 3112 - 31457 18 4563 - 17166 Yeni ECLIA methodology Performed At: [address] [id number] Brooklyn Martinez PhD Ph:[id number] [phone] 0055A-375 MEDGRP-Mi rajni Chemistr y TSH 0.661 mIU/L 0.270 - 4.200 10/10 N Interpretiv e Data: Recommend: TPO/Thyrope roxidase Antibody when TSH result is > 4.2 uIU/[facility] Chemistr y eGFR CKD EPI 109 mL/min/1 .73_m2 10/10 Interpretiv e Data: Estimated Glomerular Filtration Rate [...] decrease 15-29 Severe decrease <15 Kidney failure [facility]-Sc rajni Hematolo gy RDW 12.1 % 11.0 - 14.9 10/10 N [facility]Sc rajni Hematolo gy RBC 4.1 x10^6/mc L 3.6 - 5.0106 10/10 N [facility] rajni Hematolo gy Platelets 286.0 x10^3/mc L 150.0 - 450.0103 10/10 N [facility] rajni Hematolo gy MPV 10.3 fL 7.4 - 10.4 10/10 N [facility] rajni Hematolo gy MCHC 32.4 g/dL 33.0 - 36.5 10/10 L [facility] rajni Hematolo gy MCH 30 pg 28 - 33 10/10 N [facility] rajni Hematolo gy Hemoglobin 12.6 g/dL 11.0 - 15.0 10/10 N [facility]Sc rajni Hematolo gy Hematocrit 39 % 34 - 46 10/10 N [facility] rajni Hematolo gy MCV 94 fL 80 - 97 10/10 N [facility] rajni Hematolo gy Differenti al? Auto (10/10/24 12:00 PM) 10/10 N [facility] rajni Hematolo gy WBC 5.6 x10^3/mc L 4.0 - 11.0103 10/10 N [facility]Sc rajni Chemistr y AGAP 10.00 0.00 - 15.00 10/10 N [facility]Sc rajni Chemistr y Albumin 3.30 g/dL 3.50 - 5.20 10/10 L -375 [facility]Sc rajni Chemistr y Alk Phos 124 U/L 40 - 150 10/10 N [facility]Sc rajni Chemistr y AST 28 U/L 5 - 34 10/10 N 0055A-375 [facility] rajni Chemistr y ALT 30 U/L 5 - 55 10/10 N 005-375 [facility] rajni Chemistr y BUN 16 mg/dL 7 - 20 10/10 N -375 [facility] rajni Chemistr y Bilirubin Total 0.2 mg/dL 0.2 - 1.2 10/10 N 005-375 [facility] rajni Chemistr y BUN/Creat Ratio 23 mg/dL 12 - 20 10/10 H 5A-375 [facility] rajni Chemistr y Chloride 105 mmol/L 98 - 107 10/10 N 375 [facility] rajni Chemistr y Calcium 9.3 mg/dL 8.4 - 10.2 10/10 N -375 [facility] rajni Chemistr y CO2 26 mmol/L 22 - 29 10/10 N 005-375 [facility] rajni Chemistr y Glucose Lvl 84 mg/dL 74 - 99 10/10 N -375 [facility] rajni Chemistr y Creatinine Level 0.70 mg/dL 0.57 - 1.11 10/10 N 005-375 [facility] rajni Chemistr y Sodium 141 mmol/L 136 - 145 10/10 N 5A-375 [facility] rajni Chemistr y Potassium Lvl 4.1 mmol/L 3.5 - 5.1 10/10 N 0055A-375 [facility] rajni Chemistr y Protein Total 5.8 g/dL 6.4 - 8.3 10/10 L 5A-375 [facility] rajni Urinalys is UA Ketones Negative mg/dL 10/10 N 0055A-375 [facility] rajni Urinalys is UA Glucose Negative mg/dL 10/10 N 0055A375 [facility]Sc rajni Urinalys is UA Leuk Esterase Negative (10/10/24 12:00 PM) 10/10 N 0055A-375 [facility]Sc rajni Urinalys is UA Epi Squam 3-4 (10/10/24 12:00 PM) 10/10 N -375 [facility]Sc rajni Urinalys is UA Urobilinog en 0.2 E.U./dL 0.2 - 1.0.. 10/10 N -375 [facility]Sc rajni Urinalys is UA Amorph Crystal 4+ /HPF 10/10 N [facility]Sc rajni Urinalys is UA RBC 0-2 /HPF 10/10 N [facility]-Sc rajni Urinalys is UA Bili Negative (10/10/24 12:00 PM) 10/10 N [facility]-Sc rajni Urinalys is UA Spec Labelle 1.015 1.001 - 1.035 10/10 N -375 [facility]Sc rajni Urinalys is UA Clarity Cloudy *NA* (10/10/24 12:00 PM) 10/10-375 [facility]Sc rajni Urinalys is UA Blood Negative (10/10/24 12:00 PM) 10/10 N 375 [facility]-Sc rajni Urinalys is UA WBC 0-2 /HPF 10/10 N 005375 [facility] rajni Urinalys is UA Color Yellow *NA* (10/10/24 12:00 PM) 10/10-375 [facility] rajni Urinalys is UA Protein Negative mg/dL 10/10 N 375 [facility]Sc rajni Urinalys is UA Nitrite Negative (10/10/24 12:00 PM) 10/10 N 005375 [facility] rajni Urinalys is UA pH 7.5 *NA* (10/10/24 12:00 PM) 5 - 8 10/10-375 [facility] rajni Hematolo gy Lymphocyte % Auto 38.8 % 20.0 - 40.0 10/10 N 005375 [facility] rajni Hematolo gy Lymph Absolute 2.2 x10^3/mc L 1.2 - 4.0103 10/10 N 005-375 [facility] ra[facility]ni Hematolo gy Neutrophil % Auto 49.6 % 46.0 - 77.0 10/10 N 0055A-375 [facility] rajni Hematolo gy Neutro Absolute 2.8 x10^3/mc L 2.0 - 7.0103 10/10 N 0055A-375 [facility] ra[facility] Hematolo gy Monocyte % Auto 8 % 1 - 12 10/10 N 0055A-375 [facility] rajni Hematolo gy Cocke Absolute 0.4 x10^3/mc L 0.2 - 0.8103 10/10 N 005-375 [facility] rajni Hematolo gy Eosinophil % Auto 3 % 0 - 5 10/10 N 0055A-375 [facility] rajni Hematolo gy Eos Absolute 0.2 x10^3/mc L 0.0 - 0.7103 10/10 N 005-375 [facility] rajni Hematolo gy Basophil % Auto 0.7 % 0.0 - 2.5 10/10 N 005-375 [facility] rajni Hematolo gy Baso Absolute 0.0 x10^3/mc L 0.0 - 0.1103 10/10 N 005-375 [facility]Sc rajni Urinalys is UA Urobilinog en TNP 0.2 - 1.0 09/305A-375 [facility] rajni Urinalys is UA WBC 0-2 /HPF 09/30 N 0055A-375 [facility]Sc rajni Urinalys is UA pH TNP 5 - 8 09/305A-375 [facility]Sc rajni Urinalys is UA Protein TNP 09/30 0055A-375 [facility]Sc rajni Urinalys is UA RBC 0-2 /HPF 09/30 N 0055A-375 [facility] rajni Urinalys is UA Spec Labelle TNP 1.001 - 1.035 09/30 0055A-375 [facility]Sc rajni Urinalys is UA Epi Squam 0-2 (09/30/24 10:35 AM) 09/30 N 5A-375 [facility]Sc rajni Urinalys is UA Glucose TNP 09/305A-375 th [facility]Sc rajni Urinalys is UA Bili TNP 09/305A-375 th [facility]Sc rajni Urinalys is UA Leuk Esterase TNP 09/305A-375 [facility]Sc rajni Urinalys is UA Ketones TNP 09/305A-375 [facility]Sc rajni Urinalys is UA Nitrite TNP 09/305A-375 [facility]Sc rajni Urinalys is UA Bacteria Trace (09/30/24 10:35 AM) 09/30 N 5A-375 [facility]Sc rajni Urinalys is UA Color [place] 1 (09/30/24 10:35 AM) 09/30 N Result Comment: Unable to perform testing due to color interferenc e, microscopic exam only. -375 [facility]Sc rajni Urinalys is UA Blood TNP 09/305A-375 th [facility]-Sc rajni Urinalys is UA Clarity Clear (09/30/24 10:35 AM) 09/30 N 5A-375 [facility]Sc rajni Toxicolo gy U PCP Scrn [...] 100 ng/mL PHENCYCLIDI NE (PCP) 25 ng/mL 5A-375 [facility]Sc rajni Toxicolo gy U Cocaine Scrn Negative ng/dL 07/02 N 0055A-375 [facility]Sc rajni Toxicolo gy U Cannab Scrn [...] to population and dietary status. 0117A-AF- ASU-59th MDW-[facility] -[place] Chemistr y Vitamin B12 >4000 pg/mL 232 - 1245 07/02 H Interpretiv e Data: Samples should not be taken from patients receiving therapy with high biotin doses (i.e. >5 mg/day) until at least 8 hours following the last biotin administrat ion. 0117A-AF- ASU-59th MDW-[facility] -[place] Chemistr y TSH 0.535 mIU/L 0.270 - 4.200 07/02 N Interpretiv e Data: Recommend: TPO/Thyrope roxidase Antibody when TSH result is > 4.2 uIU/mL 5600A-[place] FSAM EPILAB Immunolo gy/Serol ogy JÚNIOR Scrn Negative 7 ( 4 12:58 PM) 07/02 N Interpretiv e Data: - JÚNIOR Screen Titer Result Further Testing - Negative <1:80 No JÚNIOR Negative N/A Yes: LACY AG and dsDNA PANEL Cytoplasmic Stain Observed Positive 1:80 - 1:160 No Positive >/=1:320 Yes: LACY AG and dsDNA PANEL LACY Ag and dsDNA PANEL contains Centromere, dsDNA, Johanna-1, Ribosomal P, [employer]/Sm, Ro-52, Scl-70, Sm, SS-A and SS-B. The performance characteris tics of this assay have not been evaluated for use in pediatric populations . Methodology : Indirect Immunofluor escence Assay (IIFA) [employer] Immunolo gy/Serol ogy Anti-SSB/L a Ab Negative 22 ( 4 12:58 PM) 07/02 N Interpretiv e Data: The performance characteris tics of this assay have not been evaluated for use in pediatric populations . METHODOLOGY : Enzyme-Link ed Immunosorbe nt Assay (JUDITH). [employer] Immunolo gy/Serol ogy Anti-SSA/R o Ab Negative 21 ( 4 12:58 PM) 07/02 N Interpretiv e Data: The performance characteris tics of this assay have not been evaluated for use in pediatric populations . METHODOLOGY : Enzyme-Link ed Immunosorbe nt Assay (JUDITH). [employer] Hematolo gy Baso Absolute 0.0 x10^3/mc L 0.0 - 0.1103 12/05 N [facility]-Sc rajni Hematolo gy Basophil % Auto 0.6 % 0.0 - 2.5 12/05 N [facility]-Sc rajni Hematolo gy Eos Absolute 0.1 x10^3/mc L 0.0 - 0.7103 12/05 N [facility]-Sc rajni Hematolo gy Eosinophil % Auto 2 % 0 - 5 12/05 N [facility]-Sc rajni Hematolo gy Lymphocyte % Auto 36.0 % 20.0 - 40.0 12/05 N [facility]-Sc rajni Hematolo gy Lymph Absolute 2.5 x10^3/mc L 1.2 - 4.0103 12/05 N [facility]-Sc rajni Hematolo gy Cocke Absolute 0.4 x10^3/mc L 0.2 - 0.8103 12/05 N [facility]-Sc rajni Hematolo gy Monocyte % Auto 6 % 1 - 12 12/05 N [facility]-Sc rajni Hematolo gy Neutro Absolute 3.8 x10^3/mc L 2.0 - 7.0103 12/05 N [facility]-Sc rajni Hematolo gy Neutrophil % Auto 55.1 % 46.0 - 77.0 12/05 N [facility]-Sc rajni Hematolo gy RDW [...] x10^3/mc L 4.0 - 11.0103 12/05 N -375 [facility] rajni Hematolo gy Differenti al? Auto (12/06/23 11:25 AM) 12/05 N [facility]Sc rajni Hematolo gy MCHC 32.3 g/dL 33.0 - 36.5 12/05 L -375 [facility] rajni Hematolo gy MCH 30 pg 28 - 33 12/05 N [facility]-Sc rajni Hematolo gy Hemoglobin 12.7 g/dL 11.0 - 15.0 12/05 N [facility]-Sc rajni Hematolo gy Hematocrit 39 % 34 - 46 12/05 N [facility]-Sc rajni Hematolo gy MCV 94 fL 80 - 97 12/05 N [facility]-Sc rajni Chemistr y UIBC, [...] decrease 15-29 Severe decrease <15 Kidney failure [facility] Immunolo gy/Serol ogy _HCV Interp 1 LC COMMENT 03/30 Result Comment: Not infected with HCV unless early or acute infection is suspected (which may be delayed in an immunocompr omised individual) , or other evidence exists to indicate HCV infection. Performed At: [address] [id number] Brooklyn Martinez PhD Ph:[id number] [phone] zzIOC Standard Chemistr y eAvg Glucose 105 mg/dL 03/30 [facility]-Mi rajni Chemistr y Hemoglobin A1c 5.3 % [...] rajni Infectio us Disease HIV-1/O/2 Non-Reac tive 18 (03/30/23 10:51 AM) 03/30 N Interpretiv e [...] Prevention' s HIV diagnostic algorithm. Refer to [facility] Lab Guide for additional information : [email or web address] x Testing performed by [employer]. 5600A-[facility] FSAM EPILAB Infectio us Disease HCV Ab LC Non Reactive 03/30 Result Comment: Performed At: [address] [id number] Brooklyn Martinez PhD Ph:[phone] [facility]Sc rajni Chemistr y AST 23 U/L 5 - 34 03/30 N [facility]Sc rajni Chemistr y Bilirubin Total 0.2 mg/dL 0.2 - 1.2 03/30 N [facility]-Sc rajni Chemistr y BUN 8 mg/dL 7 - 20 03/30 N [facility]-Sc rajni Chemistr y Calcium 9.7 mg/dL 8.4 - 10.2 03/30 N -375 [facility]Sc rajni Chemistr y BUN/Creat Ratio 11 mg/dL 12 - 20 03/30 L -375 [facility]Sc rajni Chemistr y Alk Phos 83 U/L 40 - 150 03/30 N -375 [facility]Sc rajni Chemistr y Albumin 3.90 g/dL 3.50 - 5.20 03/30 N 375 [facility]-Sc rajni Chemistr y Chloride 101 mmol/L 98 - 107 03/30 N 375 [facility]Sc rajni Chemistr y AGAP 12.00 0.00 - 15.00 03/30 N 375 [facility]Sc rajni Chemistr y CO2 29 mmol/L 22 - 29 03/30 N -375 [facility]-Mi rajni Chemistr y ALT 19 U/L 5 - 55 03/30 N 375 [facility]Sc rajni Chemistr y Creatinine Level 0.70 mg/dL 0.57 - 1.11 03/30 N 375 [facility]-Sc rajni Chemistr y Glucose Lvl 93 mg/dL 74 - 99 03/30 N 375 [facility]Sc rajni Chemistr y Sodium 142 mmol/L 136 - 145 03/30 N 375 [facility]-Mi rajni Chemistr y Potassium Lvl 3.9 mmol/L 3.5 - 5.1 03/30 N 375 [facility]Sc rajni Chemistr y Protein Total 6.7 g/dL 6.4 - 8.3 03/30 N 375 [facility]-Mi rajni Chemistr y Cholestero l Total 187 [...] 159 IU/mL 29 - 168 03/30 N [facility]-Sc rajni Chemistr y TSH 2.210 mIU/L 0.270 - 4.200 03/30 N Interpretiv e Data: Recommend: TPO/Thyrope roxidase Antibody when TSH result is > 4.2 uIU/mL [address] [place] [address] Vital Signs Combined list of inpatient and outpatient Vital Signs from Department of Defense and Veterans Affairs, ranging from 12 months to all on record, depending upon the facility. Vital Sign Value Date Comments Source Temperature Oral 36.3 Becky 12/05/2023 13:08:00 6991K-Is-A-375Th [facility] Blood Pressure Manual Automatic 12/05/2023 13:08:00 5011Y-Uc-Y-375Th [facility] BP Site Left arm 12/05/2023 13:08:00 6130C -Af-C-375Th [facility] Mean Arterial Pressure, Calc 87 mm[Hg] 12/05/2023 13:08:00 8201G-Bo-M-3 75Th [facility] Respiratory Rate 20 br/min 12/05/2023 13:08:00 3163W-Eu-A-375Th [facility] Peripheral Pulse Rate 86 bpm 12/05/2023 13:08:00 5681F-Vj-S-375Th [facility] Systolic Blood Pressure 111 mm[Hg] 12/05/2023 13:08:00 4916J-Dp-H-375Th [facility] Diastolic Blood Pressure 75 mm[Hg] 12/05/2023 13:08:00 5692N-Tt-X-375Th [facility] Peripheral Pulse Rate 95 bpm 07/02/2024 16:48:00 4711Z-Ca-A-375Th [facility] Mean Arterial Pressure, Calc 88 mm[Hg] 07/02/2024 16:48:00 5068R-Kk-Z-3 75Th [facility] Systolic Blood Pressure 112 mm[Hg] 07/02/2024 16:48:00 3627O-Nr-T-375Th [facility] Diastolic Blood Pressure 76 mm[Hg] 07/02/2024 16:48:00 8748Y-Yp-A-375Th [facility] Blood Pressure Manual Automatic 07/02/2024 16:48:00 9706B-Xm-I-375Th [facility] BP Site Right arm 07/02/2024 16:48:00 6130C -Af-C-375Th [facility] Respiratory Rate 16 br/min 06/18/2023 17:12:00 5193Q-Qh-N-375Th [facility] Blood Pressure Manual Automatic 01/25/2024 14:32:00 8920F-Qf-M-375Th [facility] BP Site Right arm 01/25/2024 14:32:00 6130C -Af-C-375Th [facility] Respiratory Rate 16 br/min 01/25/2024 14:32:00 4710Z-Fz-C-375Th [facility] Mean Arterial Pressure, Calc 98 mm[Hg] 01/25/2024 14:32:00 8589I-Zj-R-3 75Th [facility] Peripheral Pulse Rate 90 bpm 01/25/2024 14:32:00 0977N-Gx-T-375Th [facility] Systolic Blood Pressure 125 mm[Hg] 01/25/2024 14:32:00 9030P-Px-I-375Th [facility] Diastolic Blood Pressure 85 mm[Hg] 01/25/2024 14:32:00 5867T-Gr-S-375Th [facility] Blood Pressure Manual Automatic 06/20/2024 16:42:00 2186I-Sg-T-375Th [facility] Mean Arterial Pressure, Calc 87 mm[Hg] 06/20/2024 16:42:00 3090Z-Ld-R-3 75Th [facility]Taim BP Site Left arm 06/20/2024 16:42:00 6130C -Af-C-375Th [facility] Respiratory Rate 14 br/min 06/20/2024 16:42:00 5905Z-Fw-P-375Th [facility] Peripheral Pulse Rate 103 bpm 06/20/2024 16:42:00 4733H-Oh-P-375Th [facility] Systolic Blood Pressure 111 mm[Hg] 06/20/2024 16:42:00 9109X-Ev-C-375Th [facility] Diastolic Blood Pressure 75 mm[Hg] 06/20/2024 16:42:00 4253K-Br-L-375Th [facility] Respiratory Rate 16 br/min 05/29/2023 16:02:00 6582O-Sh-V-375Th [facility] Respiratory Rate 18 br/min 12/31/2023 15:27:00 2378H-Xn-L-375Th [facility] Peripheral Pulse Rate 82 bpm 12/31/2023 15:27:00 7796W-Pg-S-375Th [facility] Systolic Blood Pressure 119 mm[Hg] 12/31/2023 15:27:00 6291T-Ok-T-375Th [facility] Diastolic Blood Pressure 79 mm[Hg] 12/31/2023 15:27:00 0208F-Nz-N-375Th [facility] Mean Arterial Pressure, Calc 92 mm[Hg] 12/31/2023 15:27:00 6824Y-Pb-P-3 75Th [facility] Blood Pressure Manual Automatic 12/31/2023 15:27:00 3996O-Uy-K-375Th [facility] BP Site Left arm 12/31/2023 15:27:00 6130C -Af-C-375Th [facility] Peripheral Pulse Rate 89 bpm 04/29/2024 15:30:00 5951I-Kv-Q-375Th [facility] Mean Arterial Pressure, Calc 89 mm[Hg] 04/29/2024 15:30:00 6490B-Xz-V-3 75Th [facility] Systolic Blood Pressure 120 mm[Hg] 04/29/2024 15:30:00 7666G-Bc-Y-375Th [facility] Diastolic Blood Pressure 73 mm[Hg] 04/29/2024 15:30:00 6176J-Fe-G-375Th [facility] Blood Pressure Manual Automatic 04/29/2024 15:30:00 4890Q-Ri-Z-375Th [facility] BP Site Left arm 04/29/2024 15:30:00 6130C -Af-C-375Th [facility] Systolic Blood Pressure 129 mm[Hg] 11/21/2023 13:14:00 5367A-Xk-B-375Th [facility] Diastolic Blood Pressure 85 mm[Hg] 11/21/2023 13:14:00 5707D-Ah-A-375Th [facility] Blood Pressure Manual Automatic 11/21/2023 13:14:00 1369L-Ee-E-375Th [facility] Peripheral Pulse Rate 93 bpm 11/21/2023 13:14:00 6965Q-Am-Z-375Th [facility] Respiratory Rate 22 br/min 11/21/2023 13:14:00 8973T-Yx-F-375Th [facility] Mean Arterial Pressure, Calc 100 mm[Hg] 11/21/2023 13:14:00 5166E-Xj-Y-3 75Th [facility] Temperature Oral 36.6 Becky 11/21/2023 13:14:00 3143T-Nm-B-375Th [facility] BP Site Left arm 11/21/2023 13:14:00 6130C -Af-C-375Th [facility] Mean Arterial Pressure, Calc 89 mm[Hg] 09/24/2023 15:56:00 7366C-Jw-J-3 75Th [facility] Respiratory Rate 16 br/min 09/24/2023 15:56:00 6545X-Ds-F-375Th [facility] Peripheral Pulse Rate 99 bpm 09/24/2023 15:56:00 4980M-Ur-N-375Th [facility] Blood Pressure Manual Automatic 09/24/2023 15:56:00 1877M-Yv-V-375Th [facility] Systolic Blood Pressure 119 mm[Hg] 09/24/2023 15:56:00 9879I-Zi-Y-375Th [facility] Diastolic Blood Pressure 74 mm[Hg] 09/24/2023 15:56:00 1924R-Tl-J-375Th [facility] BP Site Left arm 09/24/2023 15:56:00 6130C -Af-C-375Th [facility] Blood Pressure Manual Automatic 10/10/2024 15:14:00 8999W-Fp-A-375Th [facility] BP Site Right arm 10/10/2024 15:14:00 6130C -Af-C-375Th [facility] Mean Arterial Pressure, Calc 85 mm[Hg] 10/10/2024 15:14:00 0527A-Md-Y-3 75Th [facility] Respiratory Rate 14 br/min 10/10/2024 15:14:00 5579G-Fs-I-375Th [facility] Peripheral Pulse Rate 97 bpm 10/10/2024 15:14:00 1125V-Yy-Y-375Th [facility] Systolic Blood Pressure 108 mm[Hg] 10/10/2024 15:14:00 3581L-Ui-R-375Th [facility] Diastolic Blood Pressure 74 mm[Hg] 10/10/2024 15:14:00 0886S-Nf-U-375Th [facility] BP Site Left arm 12/20/2023 14:16:00 6130C -Af-C-375Th [facility] Blood Pressure Manual Automatic 12/20/2023 14:16:00 8688Z-Yh-O-375Th [facility] Mean Arterial Pressure, Calc 84 mm[Hg] 12/20/2023 14:16:00 0008B-Wi-J-3 75Th [facility] Temperature Oral 36.9 Becky 12/20/2023 14:16:00 7506P-Ld-D-375Th [facility] Respiratory Rate 20 br/min 12/20/2023 14:16:00 7668H-De-R-375Th [facility] Peripheral Pulse Rate 81 bpm 12/20/2023 14:16:00 8270K-Bd-Z-375Th [facility] Systolic Blood Pressure 109 mm[Hg] 12/20/2023 14:16:00 5997K-Fl-Q-375Th [facility] Diastolic Blood Pressure 71 mm[Hg] 12/20/2023 14:16:00 0678M-Bf-A-375Th [facility] Encounters Combined list of: 1) Encounters from [...] Source 6130C-Af- C-375Th Medgr[facility]-Sc rajni Between Visit [id number] 10/11 Discharge Disposition: Home or Self Care 6130C-A f-C-375 Th [facility] 6130C-Af- C-375Th [facility]gr[facility]Sc rajni Clinic [id number] Unspeci fied abdomin al pain JACY FORMAN 10/11 Discharge Disposition: Home or Self Care 6130C-A f-C-375 Th [facility] 6130C-Af- C-375 Medgrp-Sc rajni Between Visit [id number] 10/11 Discharge Disposition: Home or Self Care 6130C-A f-C-375 [facility]ami 61C-Af- C-375 Medgrp-Sc rajni Between Visit [id number] 10/15 Discharge Disposition: Home or Self Care 6130C-A f-C-375 [facility] Tami 61-Af- C-375 Medgrp-Sc rajni Between Visit [id number] 10/21 Discharge Disposition: Home or Self Care 61C-A f-C-375 Juan [facility]gr[facility]- [facility] Procedures Combined list of: 1) Procedures from Department of Veterans Affairs facilities going back up to thelast 18 months, not all PR non-surgical procedures are included; 2) All procedures from the Department of Defense facilities. Procedure Procedure Type Code Date Perfomer Comments Sourc e DSTRJ NEUROLYTIC PLANTAR COMMON DIGITAL NERVE DSTRJ NEUROLYTIC PLANTAR COMMON DIGITAL NERVE 34417 6129--C -375 Medgr[facility]Sco tt Esophagogastroduodenos copy, flexible, transoral; diagnostic, including collection of specimen(s) by brushing or washing, when performed (separate procedure) Upper gastrointestinal endoscopy including esophagus, stomach, and either the duodenum and/or jejunum as appropriate; diagnostic, with or without collection of specimen(s) by brushing or washing (separate procedure) 32427 6129C-A f-C -375 Medgr[facility]-Sco tt 12-LEAD ECG PERFORMED 12-LEAD ECG PERFORMED 3120F -C -375 Medgr[facility]Sco tt Injection onabotulinumtoxina 6129C- Af-C -375 Medgr[facility]-Sco tt Polysomnography; any age, sleep staging with 1-3 additional parameters of sleep, attended by a technologist Polysomnography; sleep staging with 1-3 additional parameters of sleep, attended by a technologist 17294 6129-C -375 Medgrp-Sco tt NJX ANES&/STEROID PLANTAR COMMON DIGITAL NERVE NJX ANES&/STEROID PLANTAR COMMON DIGITAL NERVE 21104 -C -375Th Medgr[facility]-Sco tt Laryngoscopy, flexible fiberoptic; diagnostic Laryngoscopy, flexible fiberoptic; diagnostic 41647 Outside Source Comment: After verbal informed consent, [...] splenic flexure; with biopsy, single or multiple 77321 6130C-Af-C -375Th Medgr[facility]Sco tt Avulsion of nail plate, partial or complete, simple; single Avulsion of nail plate, partial or complete, simple; single 15378 6130C-Af-C -375Th Medgr[facility]-Sco tt Chemodenervation of muscle(s); muscle(s) innervated by facial, trigeminal, cervical spinal and acce ory nerves, bilateral (eg, for chronic migraine) Chemodenervation of muscle(s); muscle(s) innervated by facial, trigeminal, cervical spinal and accessory nerves, bilateral (eg, for chronic migraine) 14469 6130C-Af-C -375Th Med[facility]Sco tt Arthrocentesis, aspiration and/or injection; major joint or bursa (eg, shoulder, hip, knee joint, subacromial bursa) Arthrocentesis, aspiration and/or injection; major joint or bursa (eg, shoulder, hip, knee joint, subacromial bursa) 09275 6130C-Af-C -375Th Medgr[facility]Sco tt Excision, benign lesion including margins, except skin tag (unle listed elsewhere), scalp, neck, hands, feet, genitalia; excised diameter 0.6 to 1.0 cm Excision, benign lesion including margins, except skin tag (unless listed elsewhere), scalp, neck, hands, feet, genitalia; excised diameter 0.6 to 1.0 cm 07106 6130C-Af-C -375Th Medgr[facility]-Sco tt Shaving of epidermal or dermal lesion, single lesion, trunk, arms or legs; lesion diameter 0.5 cm or le Shaving of epidermal or dermal lesion, single lesion, trunk, arms or legs; lesion diameter 0.5 cm or less 08326 6130C-Af-C -375Th Medgrp-Sco tt Upper gastrointestinal endoscopy including esophagus, stomach, and either the duodenum and/or jejunum as appropriate; with biopsy, single or multiple Upper gastrointestinal endoscopy including esophagus, stomach, and either the duodenum and/or jejunum as appropriate; with biopsy, single or multiple 08803 6130C-Af-C -375Th Medgrp-Sco tt Small intestinal endoscopy, enteroscopy beyond second portion of duodenum, not including ileum; with biopsy, single or multiple Small intestinal endoscopy, enteroscopy beyond second portion of duodenum, not including ileum; with biopsy, single or multiple 25986 6130C-Af-C -375Th Medgrp-Sco tt Social History Combined list of available smoking, tobacco, and other social history from 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 Social History Type Response Date Comment Sour e Sex Representation Female (finding) 02/18/2020 Unknown Organization Tobacco Cigarette use: Never-cigarette user. Other [...] Source Assessment and Plan Extracted from:Title : [facility]-AbdXRRes_Office Clinic Note Author: ROSETTA MULLIGAN, DO Date: 10/11/24 1. A bdominal pain Acute, controlled Submitted virtual encounter d/t extended conversation regarding hx, recommendations and med management. P atient presented for virtual encounter to discuss a bdominal x-ray results. A t this time patient's a bdominal x-ray shows no signs of bowel obstruction with possible ileus and moderate stool burden in the left colon. Patient's l abs are still pending b ut overall with c linical appearance h as improved according to patient after administration of milk of magnesia a nd b owel movements. -Provided reassurance to patient and encouraged follow-up to clinic if symptoms were to worsen. ?ER precautions provided if symptoms were to worsen acutely w ith systemic symptoms in place. Ordered: CBC w/ Diff Comprehensive Metabolic Panel Thyroid Stimulating Hormone Urinalysis with Microscopic and Culture if Indicated Orders: *Differential Automated *Glomerular Filtration Rate, Estimated hCGBeta Subunit Qn [id number] XR Abdomen 2 Views Addendum by RAUL VILLAGOMEZ DO on October 13, 2024 16:13:46 CDT I certify that I was present for case discussion in the Family Medicine preceptor room at the time of this encounter. I have reviewed the note and agree with the findings, assessment, and plan except as I have documented below. Follow up as listed. All labs/imaging/consults to be followed by the ordering provider. Raul Villagomez DO, Capt, [employer], Staff Physician Extracted from:Title: [facility]-AbdPain/Bunion_Office Clinic Note Author: ROSETTA MULLIGAN DO Date: 10/10/24 1. A bdominal pain Acute, uncontrolled Extensive past surgical history o n abdomen a nd reports 2 weeks of n o bowel movements and increasing d iffuse abdominal pain with n oted concern in lower abdomen. On physical exam s tool burden was likely palpated along the lower r egions. Patient also did endorse occasional back pain. Differential includes bowel o bstruction s econdary to constipation versus fecal impaction versus v iral gastroenteritis versus . Of note patient does have chronic constipation at baseline w ith 1 bowel movement per week l ikely secondary to r ecurrent abdominal surgeries. -CBC, CMP, TSH, urinalysis with differential, a nd test were ordered t o rule out?pathology. -Abdominal x-ray was ordered to confirm o bstruction concerns a nd any other e vident?pathology. -Milk of magnesia ordered for patient 1 5 mL twice daily f or constipation to be consumed to for the next 3 days t o help resolve constipation concerns. P atient has tried o dat-mmp-wovbyya laxatives and failed. -Strong return precautions provided if continued or worsening abdominal pain that persists. Patient counseled to report to nearest ER if acute abdominal pain d evelops. Ordered: magnesium hydroxide(Milk of Magnesia 8% oral suspension), 15 mL, Oral, BID, PRN constipation, # 360 mL, 0 total refill(s), Maintenance, Pharmacy: [facility] [Not filled] Beta HCG Quantitative CBC w/ Diff Comprehensive Metabolic Panel Urinalysis with Microscopic and Culture if Indicated XR Abdomen 2 Views 2. T ailor's bunion of right foot Acute, uncontrolled Patient presents with tailor's bunion of right foot currently wrapped and w ill be seeing surgeon to be removed on October 23 for surgery. P atient had questions on further conservative management of tailor's bunion. -Recommended continued c overing and n onadhesive bandages t o prevent f urther complications i nfectious causes. -Patient verbalized understanding will proceed with surgery on October 23. Capt CHERYL (), [facility], Hotbed Transfer Operator Physician, PGY-3 [address], [place] [address] [facility] Family Medicine Residency Program [address], [address], [place] [address] Addendum by HELENA AWAD DO on October 14, 2024 10:30:05 CDT I certify that I was present for case discussion in the Family Medicine preceptor room at the time of this encounter. I have reviewed the note and agree with the findings, assessment, and plan except as I have documented below. Follow up as listed. All labs/imaging/consults to be followed by the ordering provider. Maj Leyla, [facility], Staff Physician Extracted from:Title: FM- concerns- Office Clinic Note Author: RACHAEL [...] Urine //SIGNED// Eric A maurice Clemens MD, [facility], Family Medicine Faculty Physician [address] [place] [address], HCOS/SGGF [facility] [place], [place] Extracted from:Title: [facility]- forearm pain Author: EDDIE CACERES MD Date: [...] period (12 hours... Capt Eddie Caceres MD Hotbed Transfer Operator, PGY-[address] [place] [address], [place] [facility] [place], [place] Addendum by RAUL VILLAGOMEZ DO on June 20, 2024 13:16:57 PLANT PROTECTION SUPERVISOR I certify that I was present for case discussion in the Family Medicine preceptor room at the time of this encounter. I have reviewed the note and agree with the findings, assessment, and plan except as I have documented below. Follow up as listed. All labs/imaging/consults to be followed by the ordering provider. Raul Villagomez DO, Capt, [employer], Staff Physician Extracted from:Title: Kasunic_Obesity, dry eyes, suboxone refilled Author: DAVID WALTON DO Date: 04/29/24 1. L umbar [...] -denies SI/HI -follow up prn Capt Jesús (), [facility] Hotbed Transfer Operator, PGY-2 [employer] Orders: phentermine(phentermine 37.5 mg oral tablet), 1 tab(s), Oral, Daily, # 30 tab(s), 0 total refill(s), Maintenance, 1 tab(s) Oral Daily, Pharmacy: [facility] #[id number] [External Rx] buprenorphine-naloxone(Suboxone 8 mg-2 mg sublingual film), 1 film(s), SubLingual, TID, # 90 film(s), 0 total refill(s), Maintenance, 1 film(s) SubLingual TID, Pharmacy: [facility] #[id number] [External Rx] Addendum by LASHONDA RINCON MD [...] by the ordering provider. DO Giovanni Shearer, [facility], [facility] Medicine Physician Extracted from:Title: Office Clinic [...] refill(s), Maintenance, 1 film(s) SubLingual TID, Pharmacy: [facility] #[id number] [External Rx] Raul Villagomez DO. Family Medicine Physician CaptDaniele CAMPBELL Extracted from:Title: Reinaldounic_Obesity, Insomnia, WILLIAM Author: DAVID WALTON MD Date: 01/25/24 1. M orbid [...] refill(s), Maintenance, 1 tab(s) Oral Daily, Pharmacy: [facility] #[id number] [External Rx] Referral Request 2.0 - DoD [...] c ompliant -Continue rodri Akers Capt (), [facility], Hotbed Transfer Operator, PGY-1 [place] Ordered: Referral Request 2.0 - DoD [...] refill(s), Maintenance, 1 cap(s) Oral Daily, Pharmacy: [facility] #[id number] [External Rx] phentermine to [facility] [place] [facility] referral Addendum by CORA MORRISON MD [...] tab(s) Oral every day at bedtime,PRN:insomnia, Pharmacy: [facility] #[id number] [External Rx] Hill Celeste MD PGY-3 Family [facility] [place] Addendum by RACHAEL CLEMENS MD on December [...] provider. Maj Deni Tabares) Family Medicine Physician [facility] [place], [place] Extracted from:Title: FamMed-Anxiety F/u Author: MERLENE SOTOMAYOR, [...] tab(s) Oral every day at bedtime,PRN:sleep, Pharmacy: [facility] #[id number] [External Rx] 3. M ajor depression PHQ 20 per above WILLIAM 4. M uscle spasm Reviewed, PDMP, appropriate Continue flexeril Refill suboxone written script placed RTC in 1 mo CAPT MERLENE SOTOMAYOR DO Hotbed Transfer Operator, PGY-3 [facility] [place] Addendum by OBDULIA TAVARES MD on December 09, 2023 08:35:17 CDT I certify that I was immediately available to review and discuss this patient. T he resident discussed the diagnosis and treatment plan for this patient with me zpss-oh-bhhs. I agree with these written findings and plan. Maj Ger Tavares DO, CAQSM Sports/Family Medicine Faculty Physician [address] [place] [address], HC[facility] [place] Extracted from:Title: Ambulatory Patient Education Author: DAVY [...] Follow these instructions at home: Medicines Take zsio-tao-zufsgew and prescription medicines only as told by [...] for Headache and Migraine Patients (CHAMP): headachemigraine.org Citizen Of [place] Migraine Foundation: americanmigrainefoundation.org National Headache Foundation: headaches.org [...] provider. Document Revised: 08/18/2020 Document Reviewed: 08/18/2020 [employer] Patient Education 2021 [employer]. Future Scheduled TestsLaboratoryHemoglobin A1c 06/07/24Comprehensive Metabolic Panel 06/07/24Creatine Kinase 06/07/24Lipid Panel 06/07/24 10/23/2024 4773H-Fn-S-375Th [facility] Assessment and Plan Extracted from:Title : [facility]-AbdXRRes_Office Clinic Note Author: ROSETTA MULLIGAN, Date: 10/11/24 1. A bdominal pain Acute, controlled Submitted virtual encounter d/t extended conversation regarding hx, recommendations and med management. P atient presented for virtual encounter to discuss a bdominal x-ray results. A t this time patient's a bdominal x-ray shows no signs of bowel obstruction with possible ileus and moderate stool burden in the left colon. Patient's l abs are still pending b ut overall with c linical appearance h as improved according to patient after administration of milk of magnesia a nd b owel movements. -Provided reassurance to patient and encouraged follow-up to clinic if symptoms were to worsen. ?ER precautions provided if symptoms were to worsen acutely w ith systemic symptoms in place. Ordered: CBC w/ Diff Comprehensive Metabolic Panel Thyroid Stimulating Hormone Urinalysis with Microscopic and Culture if Indicated Orders: *Differential Automated *Glomerular Filtration Rate, Estimated hCGBeta Subunit Qn [id number] XR Abdomen 2 Views Addendum by RAUL VILLAGOMEZ DO on October 13, 2024 16:13:46 CDT I certify that I was present for case discussion in the Family Medicine preceptor room at the time of this encounter. I have reviewed the note and agree with the findings, assessment, and plan except as I have documented below. Follow up as listed. All labs/imaging/consults to be followed by the ordering provider. Raul Villagomez DO, Capt, [employer], Staff Physician Extracted from:Title: [facility]-AbdPain/Bunion_Office Clinic Note Author: ROSETTA MULLIGAN DO Date: 10/10/24 1. A bdominal pain Acute, uncontrolled Extensive past surgical history o n abdomen a nd reports 2 weeks of n o bowel movements and increasing d iffuse abdominal pain with n oted concern in lower abdomen. On physical exam s tool burden was likely palpated along the lower r egions. Patient also did endorse occasional back pain. Differential includes bowel o bstruction s econdary to constipation versus fecal impaction versus v iral gastroenteritis versus . Of note patient does have chronic constipation at baseline w ith 1 bowel movement per week l ikely secondary to r ecurrent abdominal surgeries. -CBC, CMP, TSH, urinalysis with differential, a nd test were ordered t o rule out?pathology. -Abdominal x-ray was ordered to confirm o bstruction concerns a nd any other e vident?pathology. -Milk of magnesia ordered for patient 1 5 mL twice daily f or constipation to be consumed to for the next 3 days t o help resolve constipation concerns. P atient has tried o wuu-uce-oylzyhl laxatives and failed. -Strong return precautions provided if continued or worsening abdominal pain that persists. Patient counseled to report to nearest ER if acute abdominal pain d evelops. Ordered: magnesium hydroxide(Milk of Magnesia 8% oral suspension), 15 mL, Oral, BID, PRN constipation, # 360 mL, 0 total refill(s), Maintenance, Pharmacy: [facility] [Not filled] Beta HCG Quantitative CBC w/ Diff Comprehensive Metabolic Panel Urinalysis with Microscopic and Culture if Indicated XR Abdomen 2 Views 2. T ailor's bunion of right foot Acute, uncontrolled Patient presents with tailor's bunion of right foot currently wrapped and w ill be seeing surgeon to be removed on October 23 for surgery. P atient had questions on further conservative management of tailor's bunion. -Recommended continued c overing and n onadhesive bandages t o prevent f urther complications i nfectious causes. -Patient verbalized understanding will proceed with surgery on October 23. Capt Mohan LUNA, [facility], Hotbed Transfer Operator Physician, PGY-3 [facility] [employer], [place] [address] [facility] Family Medicine Residency Program [address], [address], [place] [address] Addendum by HELENA AWAD DO on October 14, 2024 10:30:05 CDT I certify that I was present for case discussion in the Family Medicine preceptor room at the time of this encounter. I have reviewed the note and agree with the findings, assessment, and plan except as I have documented below. Follow up as listed. All labs/imaging/consults to be followed by the ordering provider. Maj Leyla, [facility], Staff Physician Extracted from:Title: FM- concerns- Office Clinic Note Author: RACHAEL [...] Urine //SIGNED// Eric A maurice Clemens MD, [facility], Family Medicine Faculty Physician [address] [place] [address], [facility] [place] Extracted from:Title: [facility]- forearm pain Author: EDDIE CACERES MD Date: [...] period (12 hours... Capt Eddie Caceres MD Hotbed Transfer Operator, PGY-[address] [place] [address], [place] [facility], [place] Addendum by RAUL VILLAGOMEZ DO on June 20, 2024 13:16:57 PLANT PROTECTION SUPERVISOR I certify that I was present for case discussion in the Family Medicine preceptor room at the time of this encounter. I have reviewed the note and agree with the findings, assessment, and plan except as I have documented below. Follow up as listed. All labs/imaging/consults to be followed by the ordering provider. Raul Villagomez DO, Capt, [employer], Staff Physician Extracted from:Title: Kasunic_Obesity, dry eyes, suboxone refilled Author: DAVID WALTON DO Date: 04/29/24 1. L umbar [...] her -denies SI/HI -follow up prn Capt Mohan Espinosa, [facility] Hotbed Transfer Operator, PGY-2 [employer] Orders: phentermine(phentermine 37.5 mg oral tablet), 1 tab(s), Oral, Daily, # 30 tab(s), 0 total refill(s), Maintenance, 1 tab(s) Oral Daily, Pharmacy: [facility] #[id number] [External Rx] buprenorphine-naloxone(Suboxone 8 mg-2 mg sublingual film), 1 film(s), SubLingual, TID, # 90 film(s), 0 total refill(s), Maintenance, 1 film(s) SubLingual TID, Pharmacy: [facility] #[id number] [External Rx] Addendum by LASHONDA RINCON MD [...] by the ordering provider. DO Giovanni Shearer, [place], Family Medicine Physician Extracted from:Title: Office Clinic [...] refill(s), Maintenance, 1 film(s) SubLingual TID, Pharmacy: [facility] #[id number] [External Rx] Raul Villagomez DO. Family Medicine Physician Capt. CAMPBELL Extracted from:Title: Alisa_Obesity, Insomnia, WILLIAM Author: DAVID WALTON MD Date: 01/25/24 1. M orbid [...] refill(s), Maintenance, 1 tab(s) Oral Daily, Pharmacy: [facility] #[id number] [External Rx] Referral Request 2.0 - DoD [...] TONY and C PAP c ompliant -Continue Lunesta, trazadone David Kasunic, Capt (), [facility], Hotbed Transfer Operator, PGY-1 [place] Ordered: Referral Request 2.0 - DoD [...] from:Title: FamMed-Anxiety F/u, Obesity Author: MERLENE SOTOMAYOR, Date: 12/31/23 1. A nxiety 43yF presenting [...] refill(s), Maintenance, 1 cap(s) Oral Daily, Pharmacy: [facility] #[id number] [External Rx[facility] [place] [facility] Addendum by CORA MORRISON MD [...] tab(s) Oral every day at bedtime,PRN:insomnia, Pharmacy: [facility] #[id number] [External Rx] iHll Celeste MD PGY-3 Family Medicine [place] Addendum by RACHAEL CLEMENS MD on December [...] provider. Maj Deni Tabares) Family Medicine Physician [facility] [place], [place] Extracted from:Title: FamMed-Anxiety F/u Author: MERLENE SOTOMAYOR [...] tab(s) Oral every day at bedtime,PRN:sleep, Pharmacy: [facility] #[id number] [External Rx] 3. M ajor depression PHQ 20 per above WILLIAM 4. M uscle spasm Reviewed, PDMP, appropriate Continue flexeril Refill suboxone written script placed RTC in 1 mo CAPT MERLENE SOTOMAYOR DO Hotbed Transfer Operator, PGY-3 [facility] [place] Addendum by OBDULIA TAVARES MD on December 09, 2023 08:35:17 CDT I certify that I was immediately available to review and discuss this patient. T he resident discussed the diagnosis and treatment plan for this patient with me [id number]. I agree with these written findings and plan. Maj Ger Tavares DO, CAQSM Sports/Family Medicine Faculty Physician [address] [place] [address] Group, HCOS/SG [facility] Tami MARTINEZ [place] Extracted from:Title: Ambulatory Patient Education Author: DAVY [...] Follow these instructions at home: Medicines Take bltr-uto-shitzpt and prescription medicines only as told by [...] for Headache and Migraine Patients (CHAMP): headachemigraine.org Citizen Of [place] Migraine Foundation: americanmigrainefoundation.org National Headache Foundation: headaches.org [...] provider. Document Revised: 08/18/2020 Document Reviewed: 08/18/2020 [employer] Patient Education 2021 [employer] Future Scheduled TestsLaboratoryHemoglobin A1c 06/07/24Comprehensive Metabolic Panel 06/07/24Creatine Kinase 06/07/24Lipid Panel 06/07/24 10/23/2024 Unknown Organization Functional Status Combined list of recent functional and cognitive assessments recorded at [employer] and [employer] (VA[facility]VA Functional [place] Measurement (FIM) Scale: 1 = Total Assistance (Subject = 0% +), 2 = Maximal Assistance (Subject = 25% +), 3 = Moderate Assistance (Subject = 50% +), 4 = Minimal Assistance (Subject = 75% +), 5 = Supervision, 6 = Modified [place] (Device), 7 = Complete [place] (Timely, Safely). Assessment Date/Time Source Assessment Type Assessment Skill Assessment Score Assessment Details No data available for this section
--- OUTSIDE RECORDS SUMMARY | 2024-10-23 01:20 | XMS_ITS | Patient Health Record ---
Author Organization [facility] Address [address] [place], [place] [id number] Care Team Providers Care Laundry Aide Name Role Phone KENYON HARRIS Unavailable [phone] Darci Woody Unavailable Unavailable Allergies No Known Allergies Reason For Referral Reason [facility] ( S URGERY ) [id number] UN[address] / [facility] / [facility]. K[facility] Diagnosis 1 Tailor's bunion of r ight foot (M21.621) Referred Organization [facility] Referred Provider KENYON HARRIS Referred Address [address],[place], [id number], Referred Provider Specialty Podiatry Referral Priority Routine Medications Medication SIG (Take, Route, Frequency, Duration) Notes Start Date End Date Status Medrol 4 MG as directed Orally 04/24/2024 Active Vital Signs Height-cm 177.80 cm 04/24/2024 Weight-kg 113.4 kg 04/24/2024 Height 70.00 in 04/24/2024 Weight 250 lbs 04/24/2024 BMI 35.87 kg/m2 04/24/2024 Encounters Encounter Location Date Provider Diagnosis [facility] [address] [place], [place] [id number] 04/24/2024 KENYON HARRIS Tailor's bunion of right foot M21.621 ; Bunionette of left foot M21.622 and Pain in right foot M79.671 [facility] [place] [address] [place], [place] [id number] 05/22/2024 KENYON HARRIS Tailor's bunion of right foot M21.621 ; Bunionette of left foot M21.622 ; Pain in right foot M79.671 and Left foot pain M79.672 [facility] [place] [address] [place] [id number] 06/26/2024 KENYON STEVEN Tailor's bunion of right foot M21.621 ; Bunionette of left foot M21.622 ; Pain in right foot M79.671 and Left foot pain M79.672 [facility] [place] [address] [place] [id number] 07/24/2024 KENYON HARRIS Tailor's bunion of right foot M21.621 ; Bunionette of left foot M21.622 ; Pain in right foot M79.671 and Left foot pain M79.672 [facility] [place] [address] [place] [id number] 08/14/2024 KENYON STEVEN Tailor's bunion of right foot M21.621 and Pain in right foot M79.671 [facility] [address] [facility] [address] [place], [place] [id number] 10/01/2024 KENYON HARRIS Assessments Encounter Date Diagnosis [...] Details Provider Name:KENYON SPIVEY, 10/23/2024 01:30:00 PM, [address], [phone], Provider Name:KENYON SPIVEY, 10/30/2024 08:40:00 AM, [address] [facility] [address], [place], [place], [phone], Insurance Providers Payer Name Payer Address Payer Phone Subscriber Number Group Number Insured Name Patient Relationship to Insured Coverage Start Date Coverage End Date [facility] ([facility]) ATTN CLAIMS [address] [place] [address] [id number] ANGELICA BLACK Self - patient is the insured [facility] [address] [place] [address] [id number] GISSEL BLACK Spouse - patient is the spouse of the insured
--- OUTSIDE RECORDS SUMMARY | 2024-10-23 01:21 | XMS_ITS | Data Portability ---
Author Organization [facility], [facility] [address] [address] Assessment Encounter Date Assessment Date Assessment LastModified [...] [facility], [address], [address], [place], [address], 0 16:13:19 Referral None recorded. Procedures nerve conductio n study/EMG , upper extremity (PROC) - bilateral upper extremity EMG 2019 [facility], [address], [address], [place], [address], 0 19:22:09 lumbar radiofreq uency lesioning (PROC) - RFA of Left L3,L4,L5 w/ IV sedation to be done by Dr. Marr at [facility] 2019 020 [email or web address] Jorge Alberto Marr MD, [address], [address], [place], [address], 0 17:40:34 Surgeries None recorded. Imaging None recorded. Medication Orders Suboxone 8 mg-2 mg sublingua l film 2019 [facility], [facility], [place], [address], 0 18:36:27 Suboxone 8 mg-2 mg sublingua l film 2019 [facility], [address], [place], [address], 0 18:36:12 Suboxone 8 mg-2 mg sublingua l film 2019 [facility], [facility] [employer] [facility] [address], [place], [address], 0 18:36:22 lidocaine 5 % topical patch 2019 020 [facility], [address] [facility] [address], [place], [address], 0 18:36:17 Suboxone 8 mg-2 mg sublingua l film 2019 020 [facility], [facility] [address], [place], [address], 0 14:35:52 Suboxone 8 mg-2 mg sublingua l film 2019 020 [facility], [address] [place] [address] 10, [place], [address], 0 15:16:01 Suboxone 8 mg-2 mg sublingua l film 2019 020 [email or web address] Not available 0 16:53:01 Patient TargetsNo targets recorded. Patient Instructions Encounter Date Encounter Id Patient Instructions Last Modified By Organization Details Last Modified Time 11/20/2019 [id number] Last UADS obtain ed on 09/29/2019 +buprenorphine consistent for prescribed medication Medication List was reviewed and/or updated during this visit, including review of any fgsi-aac-pmhwkif medications, herbal therapies, and/or supplements. [place] Prescription Drug Monitoring program was reviewed today. [...] prn RR Not available 11/20/2019 14:55:30 12/18/2019 [id number] UDS collected today. Will await final confirmation from the laboratory. She will be screened today for adherence to her treatment plan and medication compliance. Medication List was reviewed and/or updated during this visit, including review of any kzml-mpw-vgpsnbn medications, herbal therapies, and/or supplements. Allergies updated. [place] Prescription Drug Monitoring program was reviewed today, appropriate. Risk Assessment: 9- high Risk. Ms. Guardado did not exhibit any behaviors today that would indicate illicit drug use. This assessment was obtained using the [place] Opioid Risk Tool on 11/06/2018. MED: 0 according to the [place] Prescription Drug Monitoring Program. A sleep study [...] order for a nerve conduction study to [facility] was sent on 11/20/2019. [facility] reported back stating that they need a [place] authorization request put in before proceding with the nerve condution study. She denies any cravings, relapses or persistent thoughts at this time. She is stable on her current suboxone regimen and denies any side effects or adverse reactions. Patient reports she is currently attending counseling 2-3 times a month with [facility]. Patient was educated on the positive [...] Follow up in 4 weeks. Transcribed by: Kayal Murphy CMA This note was completed using Electronic Health Records and/or voice recognition software to dictate portions of this document. Errors may be present despite proof reading intended to minimize such mistakes. Please contact the office for any clarifications or corrections. [email or web address] Not available 12/22/2019 13:00:59 02/16/2020 [id number] Last UADS obtain ed on 12/18/2019 +buprenorphine consistent for prescribed medication Medication List was reviewed and/or updated during this visit, including review of any ngoj-cwm-shuxujp medications, herbal therapies, and/or supplements. Allergies updated. [place] Prescription Drug Monitoring program was reviewed today, [...] Clinic [address], [place], [address], 12/22/2019 16:13:19 12/18/19 20 12/22/2019 full panel barbiturates Negati ve < 200 Not Available [facility] [address], [place], [address], 12/22/2019 16:13:19 12/18/19 20 12/22/2019 full panel benzodiazepi brandy Positi ve < 200 high Not Available [facility] [address], [place], [address], 12/22/2019 16:13:19 12/18/19 20 12/22/2019 full panel buprenorphin e Positi ve < 20 high Not Available [facility] [address], [place], [address], 12/22/2019 16:13:19 12/18/19 20 12/22/2019 full panel cocaine Negati ve < 150 Not Available [facility] [address], [place], [address], 12/22/2019 16:13:19 12/18/19 20 12/22/2019 full panel ecstasy Negati ve < 500 Not Available [facility] [address], [place], [address], 12/22/2019 16:13:19 12/18/1912/22/2019 full panel heroin 6AM Negati ve < 10 Not Available [facility] [address], [place], [address], 12/22/2019 16:13:19 12/18/19 20 12/22/2019 full panel methadone metabolite Negati ve < 1000 Not Available [facility] [address], [place], [address], 12/22/2019 16:13:19 12/18/19 20 12/22/2019 full panel opiates Negati ve < 300 Not Available [facility] [address], [place], [address], 12/22/2019 16:13:19 12/18/19 20 12/22/2019 full panel oxycodone Negati ve < 300 Not Available [facility] [address], [place], [address], 12/22/2019 16:13:19 12/18/19 20 12/22/2019 full panel pcp Negati ve < 25 Not Available [facility] [address], [place], [address], 12/22/2019 16:13:19 12/18/19 20 12/22/2019 full panel creatinine Normal >= 20 normal Not Available [facility] [address], [place], [address], 12/22/2019 16:13:19 12/18/19 20 12/22/2019 full panel pH Normal 4.5 - 9 normal Not Available [facility] [address], [place], [address], 12/22/2019 16:13:19 12/18/19 20 12/22/2019 full panel specific gravity Normal NG/mL 1.004 - 1.036 normal Not Available [facility] [address], [place], [address], 12/22/2019 16:13:19 12/18/19 20 12/22/2019 full panel oxidant Normal <= 200 normal Not Available [facility] [address], [place], [address], 12/22/2019 16:13:19 12/18/19 20 12/22/2019 full panel temperature Normal F manual normal Not Available [facility] [address], [place], [address], 12/22/2019 16:13:19 Result Notes None recorded. Problems Name Problem SNOMED Code Status Onset Date Resolution Date Notes Provider Name and Address Organization Details Recorded Time Chronic pain 74204092 Active 2018 Giselle hong [facility] 9 15:36:58 Opioid dependence 99891141 Active 2018 Giselle hong [facility] 9 15:57:42 Low back pain 453128228 Active 2018 Giselle hong [facility] 9 15:57:49 Sacroiliac joint pain 988062406 Active 2018 Giselle hong [facility] 9 15:57:58 Fibromyalg ia 031072239 Active 2018 Giselle hong [facility] 9 15:58:07 Central sleep apnea syndrome 24439206 Active 2018 Giselle hong [facility] 9 15:58:40 Chronic neck pain 9185734614762 Active 2018 Bhavik Garcia MD [address] [facility] [address], [place], [address] , [facility] 9 00:15:21 Thompson's neuroma of right foot 4265994527719 08 Active 2018 Bhavik Garcia MD [address] [facility] [address], [place], [address] , [facility] 9 23:50:15 Lumbar spondylosi s 894793669 Active 2018 Eddie hong [facility] 9 15:21:27 Spasm 83780631 Active 2018 [facility] 9 15:21:29 Numbness of hand 609948578 Active [facility] 0 14:33:48 Problem Notes None recorded. Procedures Surgical History Date Name Laterality Status Provider Name and Address Organization Details Recorded Time 09/08/19 20 Lumbar Medial Branch Blocks With Sedation completed Bhavik Garcia MD [address], [place], [address], [facility] 09/08/2019 14:27:56 03/27/20 19 Sacroiliac Joint Steroid Injection Under Fluoroscopy completed Bhavik Garcia MD [address], [place], [address], [facility] 03/27/2019 18:35:31 02/14/20 19 Lumbar Medial Branch Block completed Bhavik Garcia MD [address], [place], [address], [facility] 02/13/2019 19:37:43 03/16/20 12 repair of hernia of abdominal wall completed [facility] 11/05/2018 15:22:20 bariatric operative procedure completed [facility] 11/05/2018 15:26:48 section completed [facility] 11/05/2018 15:20:01 Cholecystectomy completed [facility] 11/05/2018 15:23:52 closure of patent foramen ovale completed [facility] 11/05/2018 15:25:01 exploratory laparotomy completed [facility] 11/05/2018 15:26:14 Gastric bypass for obesity completed [facility] 11/05/2018 15:26:35 Imaging Results None recorded. Procedure Notes None recorded. Medical Equipment None Reported. Allergies Allergen ID Allergen Name Allergen Category Reaction Reaction Severity Criticality Documentation Date Start Date Code Code System Note Provider Name and Address Organization Details Recorded Time zolpidem medicatio n other Not available Not available 11/05/2018 19186 RxNorm [facility] 0 12:09:52 oxycodone medicatio n other Not available Not available 11/05/2018 7804 RxNorm Tadeo Kitchen [facility] 0 12:09:49 lorazepam medicatio n other Not available Not available 11/05/2018 6470 RxNorm [facility] 0 12:09:47 [...] Not Available Not Available Not Available vitamin S03-mzrhe acid injection solution Take 1 mL every [...] Do You Have An Advance Directive? Yes [email or web address] Information not available 11/06/2018 What Is Your Level Of Alcohol Consumption? None [email or web address] Information not available 11/06/2018 Auto Related Injury? No [email or web address] Information not available 11/06/2018 Are You Blind Or Do You Have Difficulty Seeing? Yes [email or web address] Information not available 11/06/2018 What Is Your Level Of Caffeine Consumption? Moderate [email or web address] Information not available 11/06/2018 How Much Tobacco Do You Chew? None [email or web address] Information not available 11/06/2018 Are You Currently Employed? No [email or web address] Information not available 11/06/2018 What Type Of Diet Are You Following? REGULAR [email or web address] Information not available 11/06/2018 Education 2 Year College [email or web address] Information not available 11/06/2018 Which Of Your Hands Is Dominant? Right [email or web address] Information not available 11/06/2018 Live Alone Or With Others? With Others [email or web address] Information not available 11/06/2018 Marital Status [email or web address] Informatio n not available 11/06/2018 What Was The Date Of Your Most Recent Tobacco Screening? 01/14/2019 Information not available 02/06/2019 What Types Of Sporting Activities Do You Participate In? No Information not available 08/26/2019 General Stress Level Medium [email or web address] Information not available 11/06/2018 Work Related Injury? No [email or web address] Information not available 11/06/2018 Sex: Unknown Functional Status Question Answer Note LastModified by Organizat ion Details LastModified Time Do you have difficulty walking or climbing stairs? Yes [email or web address] Information not available 11/06/2018 What is your exercise level? Occasional [email or web address] Information not available 11/06/2018 Mental Status None recorded. Family History Relationship Description Onset Age of this Age Resolved Age Notes LastModified by Organization Details LastModified Time Maternal Grandmother Hypertensive disorder [email or web address] Not available 11/06 15:34:10 Maternal Grandmother Heart disease [email or web address] Not available 11/06 15:34:10 Mother Disorder of thyroid gland [email or web address] Not available 11/06 15:34:10 Mother Osteoporosis [email or web address] Not matthew ilable 11/06/2018 15:34:10 Father Diabetes mellitus [email or web address] Not available 11/06 15:34:10 Father Depressive disorder [email or web address] Not available 11/06 15:34:10 Father Anxiety disorder [email or web address] Not available 11/06 15:34:10 Brother Depressive disorder [email or web address] Not available 11/06 15:34:10 Brother Anxiety disorder [email or web address] Not available 11/06 15:34:10 Sister Disorder of thyroid gland [email or web address] Not available 11/06 15:34:10 Medical History Condition Response Thyroid Disease Y Kidney Stones N Hernia Y Glaucoma N COPD N Depression N Lung Disease N Irregular Heart Beats [...] SNOMED-CT Code Diagnosis ICD10 Code Diagnosis Note [id number] Bhavik Garcia MD Main Office [address] [facility] [address] [address] 11/06/2018 14:13:34 11/08/2018 15:40:28 Chronic pain 52077728 G89.29 Pt hs been on opioids since 2012Pt has been weaning down on the opioids for the past year.Pt has noticed withdrawal symptoms Long-term drug therapy 763427377 Z79.899 Opioid dependence 816003 00 F11.20 weaned of Provigil in Oct 2018 Low back pain 832624287 M54.5 CT L-spine (11 Jun 2018)-- slight retrolisth esis of L2 on L3. Mild degenerati ve changes of T12-L3, No CS, No NFS Sacroiliac joint pain 20 3836683 M53.3 Patient to obtain records Fibromyalgia 867550964 M 79.7 on Lyrica 150 mg po bid Central sl eep apnea syndrome 94377235 G47.31 Bi-Pap machine -JBER Chronic neck pain 661901 [address] C-spine (11 Jun 2018) -- mild DDD of the lower C-spine. No acute injury CT T-spine (11 Jun 2018)-- No abnormalit y [id number] Bhavik Garcia MD Main Office [address] [facility] [address] [address] 11/21/2018 13:45:29 11/26/2018 16:57:24 Chronic pain 69386202 G89.29 Pt hs been on opioids since 2012Pt has been weaning down on the opioids for the past year.Pt has noticed withdrawal symptoms Opioid dependence 190198 00 F11.20 weaned of Provigil in Oct 2018 Constipation 16823909 K5 9.00 recommend using miralax on a daily basis Central sl eep apnea syndrome 36215185 G47.31 Bi-Pap machine -JBER Low back pain 373721721 M54.5 CT L-spine (11 Jun 2018)-- slight retrolisth esis of L2 on L3. Mild degenerati ve changes of T12-L3, No CS, No NFS Fibromyalgia 245486672 M 79.7 on Lyrica 150 mg po bid [id number] Bhavik Garcia MD Main Office [address] [facility] [address] 12/11/2018 12:32:03 12/13/2018 14:05:44 Chronic pain 43316773 G89.29 Pt hs been on opioids since 2012Pt has been weaning down on the opioids for the past year.Pt has noticed withdrawal symptoms Low back pain 027431853 M54.5 CT L-spine (11 Jun 2018)-- slight retrolisth esis of L2 on L3. Mild degenerati ve changes of T12-L3, No CS, No NFS Sacroiliac joint pain 20 3010244 M53.3 Patient to obtain records Opioid dependence 174238 00 F11.20 started suboxone on 06 November 2018 weaned of Provigil in Oct 2018 Jay's n euroma of right foot 5885916268 68123 G57.61 scheduled for [facility] Neuroma excision on 12 Dec 2018 from the right foot Pt plans to use the buprenorph ine for pain controlmay also use Ibuprofen / TylenolIf worse pain than expected will use short course of oxycodone Central sl eep apnea syndrome 00332138 G47.31 Bi-Pap machine -JBER Fibromyalgia 250778109 M 79.7 on Lyrica 150 mg po bid [id number] Bhavik Garcia MD Main Office [address] [facility] [address] [place] [address] 12/17/2018 13:08:21 12/23/2018 15:48:29 Chronic pain 63954351 G89.29 Pt hs been on opioids since 2012Pt has been weaning down on the opioids for the past year.Pt has noticed withdrawal symptoms Opioid dependence 896617 started suboxone on 06 November 2018 weaned of Provigil in Oct 2018 Jay's n euroma of right foot 0777306531 46358 G57.61 scheduled for [facility] Neuroma excision on 12 Dec 2018 from the right foot Pt plans to use the buprenorph ine for pain controlmay also use Ibuprofen / TylenolIf worse pain than expected will use short course of oxycodone Low back pain 973318510 M54.5 CT L-spine (11 Jun 2018)-- slight retrolisth esis of L2 on L3. Mild degenerati ve changes of T12-L3, No CS, No NFS Sacroiliac joint pain 20 9103967 M53.3 Patient to obtain records Central sl eep apnea syndrome 71059079 G47.31 Bi-Pap machine -JBER Fibromyalgia 869606816 M 79.7 on Lyrica 150 mg po bid [id number] Bhavik Garcia MD Main Office [address] [facility] [address] [place] [address] 01/14/2019 14:33:23 01/22/2019 13:33:27 Opioid dependence 25710219 1. started suboxone on 06 November 2018 weaned of Provigil in Oct 2018 Thompson's n euroma of right foot 6618255659 68314 G57.61 Mortons Neuroma excision on 12 Dec 2018 from the right foot on MOLLY (Dr. Collier) Pt plans to use the buprenorph ine for pain controlmay also use Ibuprofen / TylenolIf worse pain than expected will use short course of oxycodone Sacroiliac joint pain 20 7915982 M53.3 Patient to obtain records Central sl eep apnea syndrome 74448812 G47.31 Bi-Pap machine -JBER Fibromyalgia 591386428 M 79.7 on Lyrica 150 mg po bid Spasm 15557857 R25.2 Took over [employer] [place] Lumbar spondylosis [address] L-spine (11 Jun 2018)-- slight retrolisth esis of L2 on L3. Mild degenerati ve changes of T12-L3, No CS, No NFS Ordered BL MBB L3-5 [id number] Bhavik Garcia MD Main Office [address] [place] [address] 02/10/2019 18:15:08 02/18/2019 18:01:34 Opioid dependence 45954961 F11.20 started suboxone on 06 November 2018 weaned of Provigil in Oct 2018 Lumbar spondylosis [address] L-spine (11 Jun 2018)-- slight retrolisth esis of L2 on L3. Mild degenerati ve changes of T12-L3, No CS, No NFS scheduled for MBB#1 stephon L3,L4,L5 on 13 Feb 2019 Thompson's n euroma of right foot 5501020117 12031 G57.61 Mortons Neuroma excision on 12 Dec 2018 from the right foot on MOLLY (Dr. Collier) healing well Sacroiliac joint pain 20 6282076 M53.3 Patient to obtain records Central sl eep apnea syndrome 67710642 G47.31 Bi-Pap machine -JBER Fibromyalgia 333545141 M 79.7 on Lyrica 150 mg po bid Spasm 60150226 R25.2 Took over [employer] Chronic pain 43042516 G8 9.29 Pt hs been on opioids since 2012Pt has been weaning down on the opioids for the past year.Pt has noticed withdrawal symptoms [id number] Bhavik Garcia MD Main Office [address] [facility] [address] [place] [address] 02/13/2019 18:47:41 02/20/2019 16:21:24 Lumbar spondylosis 217566187 M47.816 CT L-spine (11 Jun 2018)-- slight retrolisth esis of L2 on L3. Mild degenerati ve changes of T12-L3, No CS, No NFS completed stephon L3,L4, L5 MBB#1 on 13 Feb 2019 [id number] Bhavik Garcia MD Main Office [address] [facility] [facility] [address] [place] [address] 03/10/2019 17:38:53 03/18/2019 18:30:29 Opioid dependence 44375384 F11.20 started suboxone on 06 November 2018 weaned of Provigil in Oct 2018 Lumbar spondylosis [address] L-spine (11 Jun 2018)-- slight retrolisth esis of L2 on L3. Mild degenerati ve changes of T12-L3, No CS, No NFS completed stephon L3,L4, L5 MBB#1 on 13 Feb 2019 -- reports>80 % pain reductionw ill schedule MBB#2 L3,L4,L5 Thompson's n euroma of right foot 5412033874 13307 G57.61 Mortons Neuroma excision on 12 Dec 2018 from the right foot on JBER (Dr. Collier) healing well Central sl eep apnea syndrome 73842389 G47.31 Bi-Pap machine -JBER Fibromyalgia 723881797 M 79.7 on Lyrica 150 mg po bid Spasm 86204867 R25.2 Took over [employer]ob[employer] la Long-term drug therapy 995803164 Z79.899 [id number] Bhavik Garcia MD Main Office [address] [facility] [address] [place] [address] 03/27/2019 17:36:09 04/03/2019 13:06:15 Sacroiliac joint pain 561196021 M53.3 completed left SI jt injection on 27 Mar 2019 [id number] Bhavik Garcia MD Main Office [address] [facility] [address] [place] [address] 04/08/2019 13:42:28 04/15/2019 13:49:15 Opioid dependence 77568435 F11.20 started suboxone on 06 November 2018 Lumbar spondylosis [address] L-spine (11 Jun 2018)-- slight retrolisth esis of L2 on L3. Mild degenerati ve changes of T12-L3, No CS, No NFS completed stephon L3,L4, L5 MBB#1 on 13 Feb 2019 -- reports>80 % pain reduction Schedued for MBB#2 L3,L4,L5 on 24 Apr 2019 Central sl eep apnea syndrome 96629587 G47.31 Bi-Pap machine -JBER Fibromyalgia 971753647 M 79.7 on Lyrica 150 mg po bid Spasm 00364600 R25.2 Long-term drug therapy 287555991 Z79.899 Sacroiliac joint pain 20 1246408 M53.3 completed left SI jt injection on 27 Mar 2019--80% pain reduction [id number] Bhavik Garcia MD Main Office [address] [facility] [address] [place] [address] 05/06/2019 13:38:05 05/13/2019 14:09:45 Opioid dependence 46977966 F11.20 started suboxone on 06 November 2018 Sacroiliac joint pain 20 1103225 M53.3 completed left SI jt injection on 27 Mar 2019--80% pain reduction Fibromyalgia 787862737 M 79.7 on Lyrica 150 mg po bid Spasm 66623772 R25.2 Central sl eep apnea syndrome 97226774 G47.31 Bi-Pap machine -JBER Long-term drug therapy 987626411 Z79.899 Lumbar spondylosis [address] L-spine (11 Jun 2018)-- slight retrolisth esis of L2 on L3. Mild degenerati ve changes of T12-L3, No CS, No NFS completed stephon L3,L4, L5 MBB#1 on 13 Feb 2019 -- reports>80 % pain reduction Scheduled for MBB#2 L3,L4,L5 on 12 May 2019 [id number] Bhavik Garcia MD Main Office [address] [address] 06/03/2019 15:40:20 06/16/2019 16:00:37 Opioid dependence 08732645 F11.20 started suboxone on 06 November 2018 Lumbar spondylosis [address] L-spine (11 Jun 2018)-- slight retrolisth esis of L2 on L3. Mild degenerati ve changes of T12-L3, No CS, No NFS completed stephon L3,L4, L5 MBB#1 on 13 Feb 2019 -- reports>80 % pain reduction will order MBB#2 L3,L4,L5 Sacroiliac joint pain 20 6746491 M53.3 completed left SI jt injection on 27 Mar 2019--80% pain reduction Fibromyalgia 152521525 M 79.7 on Lyrica 150 mg po bid Spasm 91403757 R25.2 Central sl eep apnea syndrome 75103734 G47.31 Bi-Pap machine -JBER Thompson's n euroma of right foot 2657427322 21706 G57.61 Mortons Neuroma excision on 12 Dec 2018 from the right foot on JBER (Dr. Collier) healing well Chronic pain 24656018 G8 9.29 Pt hs been on opioids since 2012Pt has been weaning down on the opioids for the past year.Pt has noticed withdrawal symptoms [id number] Bhavik Garcia MD Main Office [address] [place], [place] [address] [facility] [address] [place] [address] 06/30/2019 18:09:50 07/10/2019 17:49:54 Opioid dependence 42543799 F11.20 started suboxone on 06 November 2018 Chronic neck pain 115649 [address] C-spine (11 Jun 2018) -- mild DDD of the lower C-spine. No acute injury CT T-spine (11 Jun 2018)-- No abnormalit y Neck pain 07261476 M54.2 Lumbar spondylosis [address] L-spine (11 Jun 2018)-- slight retrolisth esis of L2 on L3. Mild degenerati ve changes of T12-L3, No CS, No NFS completed stephon L3,L4, L5 MBB#1 on 13 Feb 2019 -- reports>80 % pain reduction will order MBB#2 L3,L4,L5 [id number] Bhavik Garcia MD Main Office [address] [address] 07/29/2019 13:42:17 08/04/2019 18:41:56 Opioid dependence 91151056 F11.20 started suboxone on 06 November 2018 Chronic pain 37371913 G8 9.29 Pt hs been on opioids since 2013Pt has been weaning down on the opioids for the past year.Pt has noticed withdrawal symptoms Lumbar spondylosis [address] L-spine (11 Jun 2018)-- slight retrolisth esis of L2 on L3. Mild degenerati ve changes of T12-L3, No CS, No NFS completed stephon L3,L4, L5 MBB#1 on 13 Feb 2019 -- reports>80 % pain reduction will order MBB#2 L3,L4,L5 Sacroiliac joint pain 20 5477281 M53.3 completed left SI jt injection on 27 Mar 2019--80% pain reduction Long-term drug therapy [id number] Z79.899 [id number] Bhavik Garcia MD Main Office [address] [address] 08/26/2019 14:00:21 08/29/2019 14:10:10 Opioid dependence 46063587 F11.20 started suboxone on 06 November 2018 Chronic pain 40957699 G8 9.29 Lumbar spondylosis [address] L-spine (11 Jun 2018)-- slight retrolisth esis of L2 on L3. Mild degenerati ve changes of T12-L3, No CS, No NFS completed stephon L3,L4, L5 MBB#1 on 13 Feb 2019 -- reports>80 % pain reduction will order MBB#2 stephon L3,L4,L5 Sacroiliac joint pain 20 7901211 M53.3 completed left SI jt injection on 27 Mar 2019--80% pain reduction Numbness of hand 3056911 04 R20.0 will order stephon UE EMG / NCS to r/o CTSwill set up with nocturnal wrist splints Spasm 09792408 R25.2 [id number] Bhavik Garcia MD Main Office [address] [facility] [address] [address] 09/08/2019 13:31:26 09/12/2019 14:03:08 Lumbar spondylosis 871353390 M47.816 CT L-spine (11 Jun 2018)-- slight retrolisth esis of L2 on L3. Mild degenerati ve changes of T12-L3, No CS, No NFS completed stephon L3,L4, L5 MBB#1 on 13 Feb 2019 -- reports>80 % pain reduction completed stephon MBB#2 on 08 Sep 2019prepro cedure pain was 01/22 [id number] Yolis espinoza, Main Office [address] [facility] [address] [address] 09/25/2019 13:48:32 09/25/2019 18:41:45 Lumbar spondylosis 927984570 M47.896 CT L-spine (11 Jun 2018)-- slight retrolisth esis of L2 on L3. Mild degenerati ve changes of T12-L3, No CS, No NFS completed stephon L3,L4, L5 MBB#1 on 13 Feb 2019 -- reports>80 % pain reduction L3, L4, L5 MBB #2 on 09/08/19: 80% relief Opioid dependence 872372 00 F11.20 Chronic pain 65096581 G8 9.29 Patient takes medication s for this condition. Numbness of hand 6828650 04 R20.0 UE EMG have been ordered. Pt. needs to schedule [id number] Bhavik Garcia MD Main Office [address] [facility] [address] [address] 10/23/2019 13:59:53 10/31/2019 14:03:53 Opioid dependence 39457625 F11.20 started suboxone on 06 November 2018 Lumbar spondylosis [address] L-spine (11 Jun 2018)-- slight retrolisth esis of L2 on L3. Mild degenerati ve changes of T12-L3, No CS, No NFS completed stephon L3,L4, L5 MBB#1 on 13 Feb 2019 -- reports>80 % pain reduction Completed MBB#2 stephon L3,L4,L5 08 Sep 2019-80% relief Sacroiliac joint pain 20 3733014 M53.3 completed left SI jt injection on 27 Mar 2019--80% pain reduction Numbness of hand 9721033 04 R20.0 Occasional numbness right hand index middle and ring finger Chronic neck pain 881597 [address] C-spine (11 Jun 2018) -- mild DDD of the lower C-spine. No acute injury CT T-spine (11 Jun 2018)-- No abnormalit y [id number] Bhavik Garcia MD Main Office [address] [address] 11/20/2019 14:00:56 11/26/2019 18:42:05 Lumbar spondylosis 576202190 M47.816 CT L-spine (11 Jun 2018)-- slight retrolisth esis of L2 on L3. Mild degenerati ve changes of T12-L3, No CS, No NFS completed stephon L3,L4, L5 MBB#1 on 13 Feb 2019 -- reports>80 % pain reduction Completed MBB#2 stephon L3,L4,L5 08 Sep 2019-80% relief will order Left RFA L3,L4,L5sc heduled for right RFA L3,L4,L5 on 05 Dec 2019 Opioid dependence 110736 00 F11.20 started suboxone on 06 November 2018 Sacroiliac joint pain 20 2216085 M53.3 completed left SI jt injection on 27 Mar 2019--80% pain reduction Numbness of hand 9941448 04 R20.0 Occasional numbness right hand index middle and ring fingerwill order NCS / EMG of the UE Chronic neck pain 467417 [address] C-spine (11 Jun 2018) -- mild DDD of the lower C-spine. No acute injury CT T-spine (11 Jun 2018)-- No abnormalit y [id number] Jorge Alberto Marr MD Main Office [address] [employer] [address] [address] [address] 12/05/2019 12:11:05 12/17/2019 19:36:10 [id number] Bhavik Garcia MD Main Office [address] [employer] [address] [address] [address] 12/18/2019 14:00:17 12/29/2019 13:43:26 Opioid dependence 39504221 F11.20 started suboxone on 06 November 2018[facility] to [facility] 2-3 times a month Lumbar spondylosis [address] L-spine (11 Jun 2018)-- slight retrolisth esis of L2 on L3. Mild degenerati ve changes of T12-L3, No CS, No NFS completed stephon L3,L4, L5 MBB#1 on 13 Feb 2019 -- reports>80 % pain reductionC ompleted MBB#2 stephon L3,L4,L5 08 Sep 2019-80% relief completed right RFA L3,L4,L5 on 05 Dec 2019---rep orts 80% pain reduction Sacroiliac joint pain 20 6132575 M53.3 completed left SI jt injection on 27 Mar 2019--80% pain reduction Numbness of hand 1593946 04 R20.0 Occasional numbness right hand index middle and ring fingerneed to reorder NCS / EMG of the UE to [facility] PT Chronic neck pain 950891 [address] C-spine (11 Jun 2018) -- mild DDD of the lower C-spine. No acute injury CT T-spine (11 Jun 2018)-- No abnormalit y Long-term drug therapy 029912418 Z79.899 [id number] Bhavik Garcia MD Main Office [address] [place], [place] [address]Y [address] [address] 01/19/2020 13:53:44 01/30/2020 19:48:04 Opioid dependence 66523856 F11.20 started suboxone on 06 November 2018[facility] to [place] 2-3 times a month Lumbar spondylosis [address] L-spine (11 Jun 2018)-- slight retrolisth esis of L2 on L3. Mild degenerati ve changes of T12-L3, No CS, No NFS completed stephon L3,L4, L5 MBB#1 on 13 Feb 2019 -- reports>80 % pain reductionC ompleted MBB#2 stephon L3,L4,L5 08 Sep 2019-80% relief completed right RFA L3,L4,L5 on 05 Dec 2019---rep orts 80% pain reduction Sacroiliac joint pain 20 1358903 M53.3 completed left SI jt injection on 27 Mar 2019--80% pain reduction Numbness of hand 3878346 04 R20.0 Occasional numbness right hand index middle and ring fingerneed to reorder NCS / EMG of the UE to [facility] PT Chronic neck pain 740123 [address] C-spine (11 Jun 2018) -- mild DDD of the lower C-spine. No acute injury CT T-spine (11 Jun 2018)-- No abnormalit y [id number] Bhavik Garcia MD Main Office [address] [place] [address] 02/16/2020 17:03:53 02/23/2020 18:27:24 Opioid dependence 35927823 F11.20 started suboxone on 06 November 2018Goes to [facility] a month Numbness of hand 8631409 04 R20.0 Occasional numbness right hand index middle and ring fingerneed to reorder NCS / EMG of the UE to [facility] PTOrder was not improved through tricarePt is PCSing out of area through the in 3 weeks Sacroiliac joint pain 20 3242846 M53.3 completed left SI jt injection on 27 Mar 2019--80% pain reduction Pt reports LBP with radicular down to the knees Lumbar spondylosis [address] L-spine (11 Jun 2018)-- slight retrolisth esis of L2 on L3. Mild degenerati ve changes of T12-L3, No CS, No NFS completed stephon L3,L4, L5 MBB#1 on 13 Feb 2019 -- reports>80 % pain reductionC ompleted MBB#2 stephon L3,L4,L5 08 Sep 2019-80% relief completed right RFA L3,L4,L5 on 05 Dec 2019---rep orts 80% pain reduction Chronic neck pain 024540 [address] C-spine (11 Jun 2018) [...] [facility] Damir Guardado [id number] Holly Guardado 12/05/2019 [facility] Damir Guarddao [id number] Holly Guardado 12/18/2019 [facility] Damir Guardado [id number] Holly Guardado 01/19/2020 [facility] Damir Guardado [id number] Hloly Guardado 02/16/2020 [facility] Damir Guardado [id number] Holly Guardado Notes Date Note Type Note [...] Garcia MD [address], [place], [address], [facility] 11/24/2019 00:10:25 12/18/2019 [...] attending counseling 2-3 times a month with [facility]. Her current pain level is 3/10 with medication.MHA, BUG TRIMMER Bhavik Garcia MD [address], [place], [address], [facility] 12/22/2019 13:14:26 01/19/2020 [...] Bhavik Garcia MD [facility] [address], [address], [facility] 01/20/2020 23:50:24 02/16/2020 text/html [facility] HPI PAINReported [facility].Location:bot h head; both Neck; right Shoulder; both [...] at a 3/10. RR Bhavik Garcia MD [address] [facility] [address], [place], [address], [place] [facility] 02/18/2020 23:20:45 OBGyn Episode No OBEpisode recorded.
[2024-10-23 11:55] VITALS: BP 143/81; PULSE 80; RESP 16; TEMP 36.2; O2SAT 100
[2024-10-23] MEDS: LACTATED RINGERS 1,000 ML 30 ML IV CONT ×2 (12:25→14:14)
[2024-10-23 12:33] LABS: BEDSIDEPREGUCG Negative (Negative)
--- NOTE | 2024-10-23 13:10 | WPDANESEPPF ---
Anes - Initial Pre Proc Eval Procedure: Operation Date: 10/23/24 13:30 Proposed Procedures p Excision of Fifth Metatarsal Head Right Foot - Juan Diego Forrest DPM Date/Time: 10/23/24 13:10 Surgeon: Juan Diego Forrest DPM Pre Op Diagnosis: Bunionette of left foot 5th toe Patient Data Age: 44 Gender: F Height: 1.78 m Weight: 119 kg Last Vital Signs Temp 97.2 F L 10/23/24 11:55 Pulse 80 10/23/24 11:55 Resp 16 10/23/24 11:55 BP 143/81 H 10/23/24 11:55 Pulse Ox 100 10/23/24 11:55 O2 Del Method Room Air 10/23/24 11:55 Allergies Allergy/AdvReac Type Severity Reaction Status Date / Time No Known Allergies Allergy Verified 10/23/24 12:26 Home Medications ?Medication ?Instructions ?Recorded ?Confirmed ?Type aspirin 81 mg tablet,delayed 81 mg PO DAILY 11/21/22 10/23/24 History release (Adult Aspirin Regimen) atorvastatin 40 mg tablet (Lipitor) 40 mg PO DAILY 11/21/22 10/23/24 History buprenorphine 8 mg-naloxone 2 mg 1 tablet sublingual TID 11/21/22 10/23/24 History sublingual tablet buspirone 15 mg tablet 15 mg PO DAILY 11/21/22 10/23/24 History duloxetine 60 mg capsule,delayed 60 mg PO DAILY 11/21/22 10/23/24 History release eszopiclone 3 mg tablet (Lunesta) 3 mg PO QHS 11/21/22 10/23/24 History fexofenadine 180 mg tablet 180 mg PO DAILY 11/21/22 10/23/24 History (Robyn Allergy) levothyroxine 137 mcg tablet 137 mcg PO DAILY 11/21/22 10/23/24 History (Synthroid) mometasone 50 mcg/actuation nasal 2 spray intranasal DAILY PRN 11/21/22 10/23/24 History spray Shortness Of Breath Or Wheezing mv-mn-folic 200 mcg-vit K 15 1 cap PO BID 11/21/22 10/23/24 History mcg-lutein 5 mg-zeaxanthin 1 mg capsule (PreserVision AREDS 2 Plus Multivit) nebivolol 5 mg tablet (Bystolic) 5 mg PO DAILY 11/21/22 10/23/24 History omeprazole 20 mg capsule,delayed 20 mg PO DAILY 11/21/22 10/23/24 History release pilocarpine HCl 5 mg tablet 5 mg PO TID 11/21/22 10/23/24 History pregabalin 150 mg capsule (Lyrica) 150 mg PO BID 11/21/22 10/23/24 History sumatriptan succinate 100 mg tablet See Rx Instructions PO .COMPLEX 11/21/22 09/22/24 History topiramate 50 mg tablet (Topamax) 50 mg PO TID 11/21/22 10/23/24 History atogepant 60 mg tablet (Qulipta) 60 mg PO DAILY 06/13/24 10/23/24 History cyclobenzaprine 10 mg tablet 10 mg PO TID 06/13/24 10/23/24 History erenumab-aooe 70 mg/mL 70 mg subcut DIRECTED 06/13/24 09/22/24 History subcutaneous auto-injector (Aimovig Autoinjector) hydroxyzine pamoate 50 mg capsule 50 mg PO DIRECTED 06/13/24 10/23/24 History trazodone 100 mg tablet 100 mg PO DIRECTED PRN insomnia 06/13/24 09/22/24 History meloxicam 15 mg tablet 15 mg PO DAILY #14 tabs 06/18/24 10/23/24 Rx lidocaine 1.8 % topical patch 1 patch topical DAILY 06/26/24 09/22/24 History omega 2-gir-iwk-fish oil 60 mg-90 1 cap PO DAILY 06/26/24 10/23/24 History mg-500 mg capsule (Fish Oil) aluminum-mag hydroxide-simethicone 10 ml PO QID PRN indigestion 09/26/24 10/14/24 Rx 200 mg-200 mg-20 mg/5 mL oral susp #3,000 mL (Advanced Antacid-Antigas) ondansetron 4 mg disintegrating 4 mg PO Q8H PRN nausea and 09/26/24 10/14/24 Rx tablet vomiting #30 tabs fluconazole 150 mg tablet 150 mg PO DAILY #2 tabs 10/02/24 10/23/24 Rx Laboratory Tests 10/23/24 12:31 POC Urine HCG, Qual Negative (Negative) Patient hx anesthesia problems: none Family hx anesthesia problems: none Results Review: All pre-operative results and documents have been reviewed as part of the pre-operative evaluation. [facility] Past Medical History Medical History Radial head fracture, closed Distal radius fracture, right Thompson's neuroma of right foot (~2016) Abdominal hernia (~2011) Previous gastric bypass complicating , antepartum (~2007) Surgical History Surgical History Hx of cholecystectomy (~2009) History of (~2007) Family History Family History Unknown Hypertension Depression Diabetes mellitus Cerebrovascular accident Social History Social History Smoking status: Never smoker Alcohol intake: never Substance use: never Substance use type: does not use Do You Feel Safe in your Home?: Yes Lack of Transportation: No Lack of Food: Never True Current Housing: I Have Housing Concerned About Future Housing: No Difficulty Paying Gas/Electric Bills: No Difficulty Paying for Meds: No Currently Unemployed: No Education: Associate Degree Difficulty w/ Childcare or Family Care: No Living arrangements: with family Occupation/Education: occupation 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 TONY on CPAP, hx of TIA/CVA prior to PFO closure in 2015, pt doing well since. Hyperlipidemia, hypothyroidism. Informed Consent: The patient's anesthetic plan and its attendant risks and benefits were discussed with the patient/family/POA. Questions were solicited and answers provided to the satisfaction of the patient/family/POA.
--- NOTE | 2024-10-23 13:10 | WPDHPUPDATE1 ---
History and Physical Update Update Date/Time: 10/23/24 13:10 History and Physical has been reviewed, including an updated exam of the patient. There are NO changes in the patient's condition. Risks, benefits, and alternatives have been discussed and questions answered. Patient agrees to proceed with procedure.
[2024-10-23] MEDS: LIDOCAINE 1% LOCAL INJ 20 ML VIAL 5 ML INFILTRATE (13:27)
[2024-10-23] MEDS: ceFAZolin 2 GM/D5W 50 ML 2 GM/50 ML BAG IVPB (13:27)
[2024-10-23] MEDS: BUPivacaine HCL 0.5% PF 30 ML VIAL INFILTRATE (14:00)
[2024-10-23 14:14] VITALS: BP 132/79; PULSE 71; RESP 14; O2SAT 100
--- NOTE | 2024-10-23 14:28 | P.OP_ITS ---
Procedure Note - Detailed Date of Procedure 10/23/24 Pre-op Diagnosis Bunionette of left foot 5th toe Post-op Diagnosis Other (Tailors bunion left foot and soft tissue mass left foot) Procedure Performed 5th metatarsal head resection left and excision of soft tissue mass left Surgeon Juan Diego Forrest, BRIDGETT Database Administration Manager None Anesthesia MAC Description of Procedure Under monitored sedation patient was brought into the operating room and placed on the operating table in a supine position. Following MAC sedation local anesthesia was obtained around the left 5th metatarsal using 2% Lidocaine plain with 0.5% Marcaine plain. The foot was then scrubbed, prepped, and draped in the usual aseptic manner. An Esmark bandage was used to exsanguinate the patient?s left foot and the ankle tourniquet was inflated. Attention was then directed to the 5th metatarsal where a linear incision was made at the MPJ. It was noted at this time there was a white soft tissue mass extending from a wound on the lateral foot to the joint capsule. The flexor tendon was enveloped in this mass. The mass was excised and sent to pathology. Unfortunately the it was necessary to sacrifice the tendon at this time. The head of the 5th metatarsal was then excised. The wound was flushed with copious amounts of sterile normal saline. Skin was repaired using 4-0 nylon. The wound was then covered with a dry, sterile compressive dressing consisting of steristrips, antibiotic ointment, Adaptic, 4 x4?s Mar and Coban. Ankle tourniquet was deflated; prompt capillary refill response was noted to all remaining digits of the left foot. Patient tolerated the procedure and anesthesia well, was transferred to the recovery room with vital signs stable and neurovascular status intact to all remaining digits of the left foot. Following a period of post-op monitoring the patient will be discharged home with written and oral post-op instructions. Drains No Packing No Pathology Yes Complications No immediate complications Condition Stable Disposition PACU
[2024-10-23] MEDS: oxyCODONE HCL (*CRX) 5 MG TAB IR PO (14:33)
[2024-10-23 14:40] VITALS: BP 134/71; PULSE 76; RESP 20
[2024-10-23 15:10] VITALS: BP 142/83; PULSE 58; RESP 20
[2024-10-23 15:15] VITALS: BP 134/89; PULSE 62; RESP 20
== END 2024-10-23 15:20 | disposition home or self-care (01) ==
PROVIDERS: Visit Provider Podiatrist Foot & Ankle Surgery
PROC: (CPT 28299; principal; 2024-10-23 13:30)
DX: M21.621 Bunionette of right foot (principal); L92.8 Other granulomatous disorders of the skin and subcutaneous tissue; E78.5 Hyperlipidemia, unspecified; E03.9 Hypothyroidism, unspecified; G47.33 Obstructive sleep apnea (adult) (pediatric); E66.9 Obesity, unspecified; Z68.37 Body mass index [BMI] 37.0-37.9, adult; Z79.82 Long term (current) use of aspirin; Z99.89 Dependence on other enabling machines and devices; Z98.890 Other specified postprocedural states; Z98.84 Bariatric surgery status; Z90.49 Acquired absence of other specified parts of digestive tract; Z86.79 Personal history of other diseases of the circulatory system; Z87.19 Personal history of other diseases of the digestive system; Z82.49 Family history of ischemic heart disease and other diseases of the circulatory system
CPT/HCPCS: 28113; 28039; 88304; 88342; A9270; J0690; J2003; J2250; J2405; J2704; J3010; J7120

== ENCOUNTER 2024-12-07 08:36 | Emergency (ER) | payer BC, OTHER, SELFPAY ==
--- NOTE | ~2024-12-07 | XR_ITS ---
HISTORY: Left foot pain COMPARISON: None TECHNIQUE: 3 views of the left foot were performed FINDINGS: Oblique incomplete fracture is identified within the proximal metaphysis of the fifth metatarsal. No additional fractures are appreciated. Soft tissue swelling is noted. The base of the fifth metatarsal is intact. No calcaneal spur is noted. IMPRESSION: Incomplete oblique fracture within the proximal metaphysis of the fifth metatarsal with the base of the fifth metatarsal is intact. Reviewed, dictated and finalized at location A.
--- OUTSIDE RECORDS SUMMARY | 2024-12-07 08:39 | XMS_ITS | Encounter Summary ---
Author Organization [facility] Address [address] [address] Care Team Providers Care Hardware Press Operator Name Role Phone Unavailable Primary Care Provider Unavailabl e Encounter Details Date Type Department Care Team (Late st Contact Info) Description 03/02/2022 Lab Requisition [facility] DermPath Lab [address] [address] [place] [address] Niles George MD [address] [place] [address] Social History Tobacco Use Types Packs/Day Years Used Date Smoking Tobacco: Never Assessed Comments Unknown Sex and Gender Information Value Date Recorded Sex Assigned at Not on file Legal Sex Female 5:11 PM CDT Gender Identity Not on file Sexual Orientation Not on file documented as of this encounter Plan of Treatment Not on file documented as of this encounter Procedures Procedure Name Priority Date/Time Associated Diagnosis Comments DERMATOPATHOLOGY Routine 03/02/2022 12:0 0 AM CDT documented in this encounter Results * DERMATOPATHOLOGY (03/02/2022 12:00 AM CDT) Case Report Dermatopathology Report Case: [id number] Authorizing Provider: Niles George MD Collected: 03/02/2022 12:00 AM Ordering Location: [facility] Care DermPath Lab Received: 03/02/2022 05:15 PM Pathologist: Katelyn Menard MD Specimen: Skin, right preauricular 6:16 PM CDT DERMATOPATHOLOGY LABORATORY Final Diagnosis Specimen A. SKIN, right preauricular: COMPOUND MELANOCYTIC NEVUS (D22.39) PRESENT AT MARGIN 2 6:16 PM CDT DERMATOPATHOLOGY LABORATORY at 1816 CDT Clinical History Irr nevus. Check margins 2 [...] characteristic determined by the Dermatopathology Laboratory at [facility], directed by Dr. Miguel Viramontes. These tests need not be, and therefore are not, approved by the [place] Food and Drug Administration. The tests are used for clinical purposes. Billing Codes Specimen Charges Stain Charges 07168 1 2 6:16 PM CDT DERMATOPATHOLOGY LABORATORY Embedded Images 2 6:16 PM CDT DERMATOPATHOLOGY LABORATORY Pathology/Cytolog y TISSUE SPECIMEN FROM SKIN / Unknown 03/02/2022 03/02/2022 5:15 PM CDT us Niles George MD LAB - PATHOLOGY/CYTOLOGY ORDERAB LES Final Result DERMATOPATHOLOGY LABORATORY [facility] - Department of Dermatology [address], [address] [phone] documented in this encounter Visit Diagnoses Not on filedocumented in this encounter
--- OUTSIDE RECORDS SUMMARY | 2024-12-07 08:39 | XMS_ITS | Continuity of Care Document ---
Author Organization [facility] Address [address] [place] [address] Phone Care Team Providers Care Rn Surgery Icu Name Role Phone Miguel Harrison PT Unavailable [...] Diagnoses Date Provider Providers Copied on Encounter [facility], [address], [place], [place], [id number], tel:[phone] [facility] No Information Hunter Rivera. . Referring Provider: Eddie Caceres, [address], [address]. tel:[phone] [facility], [address] [place] [address], [id number], tel:[phone] [place] No Information Hunter Abrahamyn. . Referring Provider: Eddie Caceres, [address], [address]. tel:[phone] [facility] [address] [place] [address], [id number], tel:[phone] [place] No Information Hunter Abrahamyn. . Referring Provider: Eddie Caceres, [address] [place] [address], [id number]. tel:[phone] [facility] [address] [place] [address], [id number], tel:[phone] [place] No Information Hunter Abrahamyn. . Referring Provider: Eddie Caceres, [address], [address]. tel:[phone] [facility] [address] [place] [address], [id number], tel:[phone] [place] No Information Hunter Abrahamyn. . Referring Provider: Eddie Caceres, [address], [address]. tel:[phone] [facility] [address] [place] [address], [id number], tel:[phone] [place] No Information Hunter Abrahamyn. . Referring Provider: Eddie Caceres, [address], [address]. tel:[phone] Family History Family Member Type Diagnosis Age At Onset No Information Payers Payer name Insurance type Covered republican ID Shilo andrade(s) No Information Social History [...]
--- OUTSIDE RECORDS SUMMARY | 2024-12-07 08:40 | XMS_ITS | Clinical Summary ---
Author Organization [facility] Address [address] [place] [address] Care Team Providers Care Medical Billing And Coding Specialist Name Role Phone Unavailable Primary Care Provider Unavailabl e Source Comments [facility],non-owned Affiliates and Associated Physician Practices is amultiple site organization consisting of ambulatory clinics and hospital sitesin [place], [place], [place] and [place]. This disclosure is being madepursuant to the Care Everywhere program and may not contain all information available regarding this patient. Last updated 18.[facility] [employer] Social History Tobacco Use Types Packs/Day Years Used Date Smoking Tobacco: Never Smokeless Tobacco: Never Tobacco Cessation:Counseling Given: Not Answered PHQ-2 Answer Date Recorded PHQ2 TOTAL SCORE 3 11/08/2022 Comments Unknown Sex and Gender Information Value [...] - 19+ 3-dose series) 1999 COVID-19 VACCINE ( - 2023-2 5 season) 2024 10/21/2020, 09/28/2020 [...] patient's age to complete this topic Insurance [facility] Address: [facility] [address] [place] [address] [facility] SELF PAY NO INSURANCE Member Subscriber Plan / Payer (Ef fective for All Dates) Name:Holly Black Member ID:Not on file Relation to Subscriber:Not on file Subscriber ID:Not on file Payer ID:Not on file Group ID:Not on file Type:Self Pay Address: [facility] SELF PAY NO INSURANCE Member Subscriber Plan / Payer (Ef fective for All Dates) Name:Holly Black Member ID:Not on file Relation to Subscriber:Not on file Subscriber ID:Not on file Payer ID:Not on file Group ID:Not on file Type:Self Pay Address: [facility] SELF PAY NO INSURANCE Member Subscriber Plan / Payer (Ef fective for All Dates) Name:Holly Black Member ID:Not on file Relation to Subscriber:Not on file Subscriber ID:Not on file Payer ID:Not on file Group ID:Not on file Type:Self Pay Address: [place], [place]
--- OUTSIDE RECORDS SUMMARY | 2024-12-07 08:40 | XMS_ITS | Data Portability ---
Author Organization [facility], [facility] Address [address] [address] Assessment Encounter Date Assessment Date Assessment LastModified [...] [facility], [address], [address], [place], [address], 0 16:13:19 Referral None recorded. Procedures nerve conductio n study/EMG , upper extremity (PROC) - bilateral upper extremity EMG 2019 [facility], [address], [address], [place], [address], 0 19:22:09 lumbar radiofreq uency lesioning (PROC) - RFA of Left L3,L4,L5 w/ IV sedation to be done by Dr. Marr at [facility] [place] 2019 020 [email or web address] Jorge Alberto Marr MD, [address], [address], [place], [address], 0 17:40:34 Surgeries None recorded. Imaging None recorded. Medication Orders Suboxone 8 mg-2 mg sublingua l film 2019 [facility], [facility], [place], [address], 0 18:36:27 Suboxone 8 mg-2 mg sublingua l film 2019 INTERFACE [facility], [address], [place], [address], 0 18:36:12 Suboxone 8 mg-2 mg sublingua l film 2019 INTERFACE [facility], [facility], [place], [address], 0 18:36:22 lidocaine 5 % topical patch 2019 020 INTERFACE [facility], [address] [facility] [address], [place], [address], 0 18:36:17 Suboxone 8 mg-2 mg sublingua l film 2019 020 INTERFACE [facility], [facility] [employer] [facility] [address], [place], [address], 0 14:35:52 Suboxone 8 mg-2 mg sublingua l film 2019 020 INTERFACE [facility], [address] [place] [address] 10, [place], [address], 0 15:16:01 Suboxone 8 mg-2 mg sublingua l film 2019 020 [email or web address] Not available 0 16:53:01 Patient TargetsNo targets recorded. Patient Instructions Encounter Date Encounter Id Patient Instructions Last Modified By Organization Details Last Modified Time 11/20/2019 [id number] Last UADS obtain ed on 09/29/2019 +buprenorphine consistent for prescribed medication Medication List was reviewed and/or updated during this visit, including review of any dbtq-zqx-cphfnbr medications, herbal therapies, and/or supplements. [place] Prescription Drug Monitoring program was reviewed today. [...] prn RR Not available 11/20/2019 14:55:30 12/18/2019 [id number] UDS collected today. Will await final confirmation from the laboratory. She will be screened today for adherence to her treatment plan and medication compliance. Medication List was reviewed and/or updated during this visit, including review of any lqzi-dqx-ryxlbyo medications, herbal therapies, and/or supplements. Allergies updated. [place] Prescription Drug Monitoring program was reviewed today, appropriate. Risk Assessment: 9- high Risk. Ms. Guardado did not exhibit any behaviors today that would indicate illicit drug use. This assessment was obtained using the [place] Opioid Risk Tool on 11/06/2018. MED: 0 according to the [place] Prescription Drug Monitoring Program. A sleep study [...] order for a nerve conduction study to [facility] was sent on 11/20/2019. [facility] reported back stating that they need a [place] authorization request put in before proceding with the nerve condution study. She denies any cravings, relapses or persistent thoughts at this time. She is stable on her current suboxone regimen and denies any side effects or adverse reactions. Patient reports she is currently attending counseling 2-3 times a month with [facility]. Patient was educated on the positive [...] the office for any clarifications or corrections. [email or web address] Not available 12/22/2019 13:00:59 02/16/2020 [id number] Last UADS obtain ed on 12/18/2019 +buprenorphine consistent for prescribed medication Medication List was reviewed and/or updated during this visit, including review of any cvej-wez-xszizqj medications, herbal therapies, and/or supplements. Allergies updated. [place] Prescription Drug Monitoring program was reviewed today, [...] Clinic [address], [place], [address], 12/22/2019 16:13:19 12/18/19 20 12/22/2019 full panel barbiturates Negati ve < 200 Not Available [facility] [address], [place], [address], 12/22/2019 16:13:19 12/18/19 20 12/22/2019 full panel benzodiazepi brandy Positi ve < 200 high Not Available [facility] [address], [place], [address], 12/22/2019 16:13:19 12/18/19 20 12/22/2019 full panel buprenorphin e Positi ve < 20 high Not Available [facility] [address], [place], [address], 12/22/2019 16:13:19 12/18/19 20 12/22/2019 full panel cocaine Negati ve < 150 Not Available [facility] [address], [place], [address], 12/22/2019 16:13:19 12/18/19 20 12/22/2019 full panel ecstasy Negati ve < 500 Not Available [facility] [address], [place], [address], 12/22/2019 16:13:19 12/18/1912/22/2019 full panel heroin 6AM Negati ve < 10 Not Available [facility] [address], [place], [address], 12/22/2019 16:13:19 12/18/19 20 12/22/2019 full panel methadone metabolite Negati ve < 1000 Not Available [facility] [address], [place], [address], 12/22/2019 16:13:19 12/18/19 20 12/22/2019 full panel opiates Negati ve < 300 Not Available [facility] [address], [place], [address], 12/22/2019 16:13:19 12/18/19 20 12/22/2019 full panel oxycodone Negati ve < 300 Not Available [facility] [address], [place], [address], 12/22/2019 16:13:19 12/18/19 20 12/22/2019 full panel pcp Negati ve < 25 Not Available [facility] [address], [place], [address], 12/22/2019 16:13:19 12/18/19 20 12/22/2019 full panel creatinine Normal >= 20 normal Not Available [facility] [address], [place], [address], 12/22/2019 16:13:19 12/18/19 20 12/22/2019 full panel pH Normal 4.5 - 9 normal Not Available [facility] [address], [place], [address], 12/22/2019 16:13:19 12/18/19 20 12/22/2019 full panel specific gravity Normal NG/mL 1.004 - 1.036 normal Not Available [facility] [address], [place], [address], 12/22/2019 16:13:19 12/18/19 20 12/22/2019 full panel oxidant Normal <= 200 normal Not Available [facility] [address], [place], [address], 12/22/2019 16:13:19 12/18/19 20 12/22/2019 full panel temperature Normal F manual normal Not Available [facility] [address], [place], [address], 12/22/2019 16:13:19 Result Notes None recorded. Problems Name Problem SNOMED Code Status Onset Date Resolution Date Notes Provider Name and Address Organization Details Recorded Time Chronic pain 99829751 Active 2018 Giselle hong [facility] 9 15:36:58 Opioid dependence 85037194 Active 2018 Giselle hong [facility] 9 15:57:42 Low back pain 128610380 Active 2018 Giselle hong [facility] 9 15:57:49 Pain of sacroiliac joint 918849446 Active 2018 Giselle hong [facility] 9 15:57:58 Fibromyalg ia 294617690 Active 2018 Giselle hong [facility] 9 15:58:07 Central sleep apnea syndrome 20535071 Active 2018 Giselle hong [facility] 9 15:58:40 Chronic neck pain 5956969844655 Active 2018 Bhavik Garcia MD [address] [facility] [address], [place], [address] , [facility] 9 00:15:21 Thompson's neuroma of right foot 3427340148238 08 Active 2018 Bhavik Garcia MD [address] [facility] [address], [place], [address] , [facility] 9 23:50:15 Lumbar spondylosi s 590160239 Active 2018 Eddie hong [facility] 9 15:21:27 Spasm 86066623 Active 2018 Eddie Kim [facility] 9 15:21:29 Numbness of hand 867581483 Active Frida Diaz [facility] 0 14:33:48 Problem Notes None recorded. Procedures Surgical History Date Name Laterality Status Provider Name and Address Organization Details Recorded Time 09/08/19 20 Lumbar Medial Branch Blocks With Sedation completed Bhavik Garcia MD [address], [place], [address], [facility] 09/08/2019 14:27:56 03/27/20 19 Sacroiliac Joint Steroid Injection Under Fluoroscopy completed Bhavik Garcia MD [address], [place], [address], [facility] 03/27/2019 18:35:31 02/14/20 19 Lumbar Medial Branch Block completed Bhavik Garcia MD [address], [place], [address], [facility] 02/13/2019 19:37:43 03/16/20 12 repair of hernia of abdominal wall completed [facility] 11/05/2018 15:22:20 bariatric operative procedure completed [facility] 11/05/2018 15:26:48 section completed [facility] 11/05/2018 15:20:01 Cholecystectomy completed [facility] 11/05/2018 15:23:52 closure of patent foramen ovale completed [facility] 11/05/2018 15:25:01 exploratory laparotomy completed [facility] 11/05/2018 15:26:14 Gastric bypass for obesity completed [facility] 11/05/2018 15:26:35 Imaging Results None recorded. Procedure Notes None recorded. Medical Equipment None Reported. Allergies Allergen ID Allergen Name Allergen Category Reaction Reaction Severity Criticality Documentation Date Start Date Code Code System Note Provider Name and Address Organization Details Recorded Time zolpidem medicatio n other Not available Not available 11/05/2018 65071 RxNorm Tadeo Kitchen gely [facility] 0 12:09:52 oxycodone medicatio n other Not available Not available 11/05/2018 7804 RxNorm Tadeo Kitchen [facility] 0 12:09:49 lorazepam medicatio n other Not available Not available 11/05/2018 6470 [facility] 0 12:09:47 [...] Not Available Not Available Not Available vitamin Q75-gdxvf acid injection solution Take 1 mL every [...] Do You Have An Advance Directive? Yes [email or web address] Information not available 11/06/2018 Auto Related Injury? No [email or web address] Information not available 11/06/2018 Are You Blind Or Do You Have Difficulty Seeing? Yes [email or web address] Information not available 11/06/2018 What Is Your Level Of Caffeine Consumption? Moderate Information not available 11/06/2018 How Much Tobacco Do You Chew? None [email or web address] Information not available 11/06/2018 What Type Of Diet Are You Following? REGULAR [email or web address] Information not available 11/06/2018 Education 2 Year College [email or web address] Information not available 11/06/2018 Which Of Your Hands Is Dominant? Right [email or web address] Information not available 11/06/2018 Live Alone Or With Others? With Others [email or web address] Information not available 11/06/2018 Marital Status Informatio n not available 11/06/2018 What Was The Date Of Your Most Recent Tobacco Screening? 01/14/2019 Information not available 02/06/2019 What Types Of Sporting Activities Do You Participate In? No Information not available 08/26/2019 General Stress Level Medium [email or web address] Information not available 11/06/2018 Do You Have Difficulty Walking Or Climbing Stairs? Yes [email or web address] Information not available 11/06/2018 Work Related Injury? No [email or web address] Information not available 11/06/2018 Sex: Unknown Functional Status Question Answer Note LastModified by Organizat ion Details LastModified Time What is your level of alcohol consumption? None [email or web address] Information not available 11/06/2018 Are you currently employed? No [email or web address] Information not available 11/06/2018 What is your exercise level? Occasional Information not available 11/06/2018 Mental Status None recorded. Family History Relationship Description Onset Age of this Age Resolved Age Notes LastModified by Organization Details LastModified Time Maternal Grandmother Hypertensive disorder [email or web address] Not available 11/06 15:34:10 Maternal Grandmother Heart disease [email or web address] Not available 11/06 15:34:10 Mother Disorder of thyroid gland [email or web address] Not available 11/06 15:34:10 Mother Osteoporosis [email or web address] Not matthew ilable 11/06/2018 15:34:10 Father Diabetes mellitus [email or web address] Not available 11/06 15:34:10 Father Depressive disorder Not available 11/06 15:34:10 Father Anxiety disorder [email or web address] Not available 11/06 15:34:10 Brother Depressive disorder Not available 11/06 15:34:10 Brother Anxiety disorder Not available 11/06 15:34:10 Sister Disorder of thyroid gland [email or web address] Not available 11/06 15:34:10 Medical History Condition [...] SNOMED-CT Code Diagnosis ICD10 Code Diagnosis Note [id number] Bhavik Garcia MD Main Office [address] [address] 11/06/2018 14:13:34 11/08/2018 15:40:28 Chronic pain 62306846 G89.29 Pt hs been on opioids since 2012Pt has been weaning down on the opioids for the past year.Pt has noticed withdrawal symptoms Long-term drug therapy 086442256 Z79.899 Opioid dependence 701571 00 F11.20 weaned of Provigil in Oct 2018 Low back pain 330663712 M54.5 CT L-spine (11 Jun 2018)-- slight retrolisth esis of L2 on L3. Mild degenerati ve changes of T12-L3, No CS, No NFS Pain of sa croiliac joint 024021364 M53.3 Patient to obtain records Fibromyalgia 433609064 M 79.7 on Lyrica 150 mg po bid Central sl eep apnea syndrome 75996814 G47.31 Bi-Pap machine -JBER Chronic neck pain 600388 [address] C-spine (11 Jun 2018) -- mild DDD of the lower C-spine. No acute injury CT T-spine (11 Jun 2018)-- No abnormalit y [id number] Bhavik Garcia MD Main Office [address] [facility] [address] [place] [address] 11/21/2018 13:45:29 11/26/2018 16:57:24 Chronic pain 69986528 G89.29 Pt hs been on opioids since 2012Pt has been weaning down on the opioids for the past year.Pt has noticed withdrawal symptoms Opioid dependence 711897 00 F11.20 weaned of Provigil in Oct 2018 Constipation 39608071 K5 9.00 recommend using miralax on a daily basis Central sl eep apnea syndrome 21267895 G47.31 Bi-Pap machine -JBER Low back pain 705551035 M54.5 CT L-spine (11 Jun 2018)-- slight retrolisth esis of L2 on L3. Mild degenerati ve changes of T12-L3, No CS, No NFS Fibromyalgia 993535526 M 79.7 on Lyrica 150 mg po bid [id number] Bhavik Garcia MD Main Office [address] [facility] [address] [place] [address] 12/11/2018 12:32:03 12/13/2018 14:05:44 Chronic pain 00589195 G89.29 Pt hs been on opioids since 2012Pt has been weaning down on the opioids for the past year.Pt has noticed withdrawal symptoms Low back pain 560395998 M54.5 CT L-spine (11 Jun 2018)-- slight retrolisth esis of L2 on L3. Mild degenerati ve changes of T12-L3, No CS, No NFS Pain of sa croiliac joint 390096422 M53.3 Patient to obtain records Opioid dependence 093435 00 F11.20 started suboxone on 06 November 2018 weaned of Provigil in Oct 2018 Thompson's n euroma of right foot 8183704167 67318 G57.61 scheduled for [facility] Neuroma excision on 12 Dec 2018 from the right foot Pt plans to use the buprenorph ine for pain controlmay also use Ibuprofen / TylenolIf worse pain than expected will use short course of oxycodone Central sl eep apnea syndrome 52502944 G47.31 Bi-Pap machine -JBER Fibromyalgia 249580295 M 79.7 on Lyrica 150 mg po bid [id number] Bhavik Garcia MD Main Office [address] [address] 12/17/2018 13:08:21 12/23/2018 15:48:29 Chronic pain 24849672 G89.29 Pt hs been on opioids since 2012Pt has been weaning down on the opioids for the past year.Pt has noticed withdrawal symptoms Opioid dependence 416838 started suboxone on 06 November 2018 weaned of Provigil in Oct 2018 Jay's n euroma of right foot 5057774621 84470 G57.61 scheduled for [facility] Neuroma excision on 12 Dec 2018 from the right foot Pt plans to use the buprenorph ine for pain controlmay also use Ibuprofen / TylenolIf worse pain than expected will use short course of oxycodone Low back pain 323421110 M54.5 CT L-spine (11 Jun 2018)-- slight retrolisth esis of L2 on L3. Mild degenerati ve changes of T12-L3, No CS, No NFS Pain of sa croiliac joint 237644835 M53.3 Patient to obtain records Central sl eep apnea syndrome 94842007 G47.31 Bi-Pap machine -JBER Fibromyalgia 030104803 M 79.7 on Lyrica 150 mg po bid [id number] Bhavik Garcia MD Main Office [address] [facility] [address] [place] [address] 01/14/2019 14:33:23 01/22/2019 13:33:27 Opioid dependence 98095071 F11.20 started suboxone on 06 November 2018 weaned of Provigil in Oct 2018 Thompson's n euroma of right foot 7197592807 51443 G57.61 Mortons Neuroma excision on 12 Dec 2018 from the right foot on [facility]LLY (Dr. Collier) Pt plans to use the buprenorph ine for pain controlmay also use Ibuprofen / TylenolIf worse pain than expected will use short course of oxycodone Pain of sa croiliac joint 306759691 M53.3 Patient to obtain records Central sl eep apnea syndrome 27496099 G47.31 Bi-Pap machine -JBER Fibromyalgia 862904544 M 79.7 on Lyrica 150 mg po bid Spasm 41312010 R25.2 Took over [employer] [place] Lumbar spondylosis [address] L-spine (11 Jun 2018)-- slight retrolisth esis of L2 on L3. Mild degenerati ve changes of T12-L3, No CS, No NFS Ordered BL MBB L3-5 [id number] Bhavik Garcia MD Main Office [address] [place] [address] 02/10/2019 18:15:08 02/18/2019 18:01:34 Opioid dependence 77487707 F11.20 started suboxone on 06 November 2018 weaned of Provigil in Oct 2018 Lumbar spondylosis [address] L-spine (11 Jun 2018)-- slight retrolisth esis of L2 on L3. Mild degenerati ve changes of T12-L3, No CS, No NFS scheduled for MBB#1 stephon L3,L4,L5 on 13 Feb 2019 Thompson's n euroma of right foot 5173709341 99213 G57.61 Mortons Neuroma excision on 12 Dec 2018 from the right foot on MOLLY (Dr. Collier) healing well Pain of sa croiliac joint 503767456 M53.3 Patient to obtain records Central sl eep apnea syndrome 88259087 G47.31 Bi-Pap machine -JBER Fibromyalgia 201398887 M 79.7 on Lyrica 150 mg po bid Spasm 64423068 R25.2 Took over [employer] [place] Chronic pain 71571575 G8 9.29 Pt hs been on opioids since 2012Pt has been weaning down on the opioids for the past year.Pt has noticed withdrawal symptoms [id number] Bhavik Garcia MD Main Office [address] [address] 02/13/2019 18:47:41 02/20/2019 16:21:24 Lumbar spondylosis 084483619 M47.816 CT L-spine (11 Jun 2018)-- slight retrolisth esis of L2 on L3. Mild degenerati ve changes of T12-L3, No CS, No NFS completed stephon L3,L4, L5 MBB#1 on 13 Feb 2019 [id number] Bhavik Garcia MD Main Office [address] [address] 03/10/2019 17:38:53 03/18/2019 18:30:29 Opioid dependence 96251240 F11.20 started suboxone on 06 November 2018 weaned of Provigil in Oct 2018 Lumbar spondylosis [address] L-spine (11 Jun 2018)-- slight retrolisth esis of L2 on L3. Mild degenerati ve changes of T12-L3, No CS, No NFS completed stephon L3,L4, L5 MBB#1 on 13 Feb 2019 -- reports>80 % pain reductionw ill schedule MBB#2 L3,L4,L5 Thompson's n euroma of right foot 9672775310 46171 G57.61 Mortons Neuroma excision on 12 Dec 2018 from the right foot on JBER (Dr. Collier) healing well Central sl eep apnea syndrome 99245737 G47.31 Bi-Pap machine -JBER Fibromyalgia 123144199 M 79.7 on Lyrica 150 mg po bid Spasm 31710967 R25.2 Took over Cyclobenza la Long-term drug therapy 970488441 Z79.899 [id number] Bhavik Garcia MD Main Office [address] [address] 03/27/2019 17:36:09 04/03/2019 13:06:15 Pain of sacroiliac joint 069340523 M53.3 completed left SI jt injection on 27 Mar 2019 [id number] Bhavik Garcia MD Main Office [address] [address] 04/08/2019 13:42:28 04/15/2019 13:49:15 Opioid dependence 64282432 F11.20 started suboxone on 06 November 2018 Lumbar spondylosis [address] L-spine (11 Jun 2018)-- slight retrolisth esis of L2 on L3. Mild degenerati ve changes of T12-L3, No CS, No NFS completed stephon L3,L4, L5 MBB#1 on 13 Feb 2019 -- reports>80 % pain reduction Schedued for MBB#2 L3,L4,L5 on 24 Apr 2019 Central sl eep apnea syndrome 14491000 G47.31 Bi-Pap machine -JBER Fibromyalgia 236213018 M 79.7 on Lyrica 150 mg po bid Spasm 84508783 R25.2 Long-term drug therapy 133503035 Z79.899 Pain of sa croiliac joint 784854878 M53.3 completed left SI jt injection on 27 Mar 2019--80% pain reduction [id number] Bhavik Garcia MD Main Office [address] [address] 05/06/2019 13:38:05 05/13/2019 14:09:45 Opioid dependence 42233267 F11.20 started suboxone on 06 November 2018 Pain of sa croiliac joint 067672851 M53.3 completed left SI jt injection on 27 Mar 2019--80% pain reduction Fibromyalgia 538625780 M 79.7 on Lyrica 150 mg po bid Spasm 14606331 R25.2 Central sl eep apnea syndrome 86824861 G47.31 Bi-Pap machine -JBER Long-term drug therapy 781411936 Z79.899 Lumbar spondylosis [address] L-spine (11 Jun 2018)-- slight retrolisth esis of L2 on L3. Mild degenerati ve changes of T12-L3, No CS, No NFS completed stephon L3,L4, L5 MBB#1 on 13 Feb 2019 -- reports>80 % pain reduction Scheduled for MBB#2 L3,L4,L5 on 12 May 2019 [id number] Bhavik Garcia MD Main Office [address] [facility] [address] [address] 06/03/2019 15:40:20 06/16/2019 16:00:37 Opioid dependence 50514550 F11.20 started suboxone on 06 November 2018 Lumbar spondylosis [address] L-spine (11 Jun 2018)-- slight retrolisth esis of L2 on L3. Mild degenerati ve changes of T12-L3, No CS, No NFS completed stephon L3,L4, L5 MBB#1 on 13 Feb 2019 -- reports>80 % pain reduction will order MBB#2 L3,L4,L5 Pain of sa croiliac joint 069296722 M53.3 completed left SI jt injection on 27 Mar 2019--80% pain reduction Fibromyalgia 731781669 M 79.7 on Lyrica 150 mg po bid Spasm 05508349 R25.2 Central sl eep apnea syndrome 18682400 G47.31 Bi-Pap machine -JBER Thompson's n euroma of right foot 2516663478 57007 G57.61 Mortons Neuroma excision on 12 Dec 2018 from the right foot on JBER (Dr. Collier) healing well Chronic pain 58425092 G8 9.29 Pt hs been on opioids since 2012Pt has been weaning down on the opioids for the past year.Pt has noticed withdrawal symptoms [id number] Bhavik Garcia MD Main Office [address] [address] 06/30/2019 18:09:50 07/10/2019 17:49:54 Opioid dependence 18677964 F11.20 started suboxone on 06 November 2018 Chronic neck pain 581504 [address] C-spine (11 Jun 2018) -- mild DDD of the lower C-spine. No acute injury CT T-spine (11 Jun 2018)-- No abnormalit y Neck pain 11385964 M54.2 Lumbar spondylosis [address] L-spine (11 Jun 2018)-- slight retrolisth esis of L2 on L3. Mild degenerati ve changes of T12-L3, No CS, No NFS completed stephon L3,L4, L5 MBB#1 on 13 Feb 2019 -- reports>80 % pain reduction will order MBB#2 L3,L4,L5 [id number] Bhavik Garcia MD Main Office [address] [facility] [address] [place] [address] 07/29/2019 13:42:17 08/04/2019 18:41:56 Opioid dependence 69041152 F11.20 started suboxone on 06 November 2018 Chronic pain 37515572 G8 9.29 Pt hs been on opioids since 2012Pt has been weaning down on the opioids for the past year.Pt has noticed withdrawal symptoms Lumbar spondylosis [address] L-spine (11 Jun 2018)-- slight retrolisth esis of L2 on L3. Mild degenerati ve changes of T12-L3, No CS, No NFS completed stephon L3,L4, L5 MBB#1 on 13 Feb 2019 -- reports>80 % pain reduction will order MBB#2 L3,L4,L5 Pain of sa croiliac joint 853473695 M53.3 completed left SI jt injection on 27 Mar 2019--80% pain reduction Long-term drug therapy 051021675 Z79.899 [id number] Bhavik Garcia MD Main Office [address] [facility] [address] [place] [address] 08/26/2019 14:00:21 08/29/2019 14:10:10 Opioid dependence 39195577 F11.20 started suboxone on 06 November 2018 Chronic pain 72199563 G8 9.29 Lumbar spondylosis [address] L-spine (11 Jun 2018)-- slight retrolisth esis of L2 on L3. Mild degenerati ve changes of T12-L3, No CS, No NFS completed stephon L3,L4, L5 MBB#1 on 13 Feb 2019 -- reports>80 % pain reduction will order MBB#2 stephon L3,L4,L5 Pain of sa croiliac joint 658302603 M53.3 completed left SI jt injection on 27 Mar 2019--80% pain reduction Numbness of hand 1524534 04 R20.0 will order stephon UE EMG / NCS to r/o CTSwill set up with nocturnal wrist splints Spasm 73323428 R25.2 [id number] Bhavik Garcia MD Main Office [address] [place] [address] [address] 09/08/2019 13:31:26 09/12/2019 14:03:08 Lumbar spondylosis 778699155 M47.816 CT L-spine (11 Jun 2018)-- slight retrolisth esis of L2 on L3. Mild degenerati ve changes of T12-L3, No CS, No NFS completed stephon L3,L4, L5 MBB#1 on 13 Feb 2019 -- reports>80 % pain reduction completed stephon MBB#2 on 08 Sep 2019prepro cedure pain was 01/22 [id number] Yolis espinoza, Main Office [address] [address] 09/25/2019 13:48:32 09/25/2019 18:41:45 Lumbar spondylosis 572584731 M47.896 CT L-spine (11 Jun 2018)-- slight retrolisth esis of L2 on L3. Mild degenerati ve changes of T12-L3, No CS, No NFS completed stephon L3,L4, L5 MBB#1 on 13 Feb 2019 -- reports>80 % pain reduction L3, L4, L5 MBB #2 on 09/08/19: 80% relief Opioid dependence 262154 00 F11.20 Chronic pain 61315175 G8 9.29 Patient takes medication s for this condition. Numbness of hand 4861590 04 R20.0 UE EMG have been ordered. Pt. needs to schedule [id number] Bhavik Garcia MD Main Office [address] [address] 10/23/2019 13:59:53 10/31/2019 14:03:53 Opioid dependence 65167037 F11.20 started suboxone on 06 November 2018 Lumbar spondylosis [address] L-spine (11 Jun 2018)-- slight retrolisth esis of L2 on L3. Mild degenerati ve changes of T12-L3, No CS, No NFS completed stephon L3,L4, L5 MBB#1 on 13 Feb 2019 -- reports>80 % pain reduction Completed MBB#2 stephon L3,L4,L5 08 Sep 2019-80% relief Pain of sa croiliac joint 922257738 M53.3 completed left SI jt injection on 27 Mar 2019--80% pain reduction Numbness of hand 3751219 04 R20.0 Occasional numbness right hand index middle and ring finger Chronic neck pain 326342 [address] C-spine (11 Jun 2018) -- mild DDD of the lower C-spine. No acute injury CT T-spine (11 Jun 2018)-- No abnormalit y [id number] Bhavik Garcia MD Main Office [address] [facility] [address] [address] 11/20/2019 14:00:56 11/26/2019 18:42:05 Lumbar spondylosis 340796899 M47.816 CT L-spine (11 Jun 2018)-- slight retrolisth esis of L2 on L3. Mild degenerati ve changes of T12-L3, No CS, No NFS completed stephon L3,L4, L5 MBB#1 on 13 Feb 2019 -- reports>80 % pain reduction Completed MBB#2 stephon L3,L4,L5 08 Sep 2019-80% relief will order Left RFA L3,L4,L5sc heduled for right RFA L3,L4,L5 on 05 Dec 2019 Opioid dependence 098121 00 F11.20 started suboxone on 06 November 2018 Pain of sa croiliac joint 794754276 M53.3 completed left SI jt injection on 27 Mar 2019--80% pain reduction Numbness of hand 8326872 04 R20.0 Occasional numbness right hand index middle and ring fingerwill order NCS / EMG of the UE Chronic neck pain 588797 [address] C-spine (11 Jun 2018) -- mild DDD of the lower C-spine. No acute injury CT T-spine (11 Jun 2018)-- No abnormalit y [id number] Jorge Alberto Marr MD Main Office [address] [facility] [address] [address] 12/05/2019 12:11:05 12/17/2019 19:36:10 [id number] Bhavik Garcia MD Main Office [address] [facility] [address] [address] 12/18/2019 14:00:17 12/29/2019 13:43:26 Opioid dependence 23310830 F11.20 started suboxone on 06 November 2018[facility] Lumbar spondylosis [address] L-spine (11 Jun 2018)-- slight retrolisth esis of L2 on L3. Mild degenerati ve changes of T12-L3, No CS, No NFS completed stephon L3,L4, L5 MBB#1 on 13 Feb 2019 -- reports>80 % pain reductionC ompleted MBB#2 stephon L3,L4,L5 08 Sep 2019-80% relief completed right RFA L3,L4,L5 on 05 Dec 2019---rep orts 80% pain reduction Pain of sa croiliac joint 139989979 M53.3 completed left SI jt injection on 27 Mar 2019--80% pain reduction Numbness of hand 9161078 04 R20.0 Occasional numbness right hand index middle and ring fingerneed to reorder NCS / EMG of the UE to [facility] Chronic neck pain 591249 [address] C-spine (11 Jun 2018) -- mild DDD of the lower C-spine. No acute injury CT T-spine (11 Jun 2018)-- No abnormalit y Long-term drug therapy 332705685 Z79.899 [id number] Bhavik Garcia MD Main Office [address] [place] [address] 01/19/2020 13:53:44 01/30/2020 19:48:04 Opioid dependence 83306464 F11.20 started suboxone on 06 November 2018[facility] a month Lumbar spondylosis [address] L-spine (11 Jun 2018)-- slight retrolisth esis of L2 on L3. Mild degenerati ve changes of T12-L3, No CS, No NFS completed stephon L3,L4, L5 MBB#1 on 13 Feb 2019 -- reports>80 % pain reductionC ompleted MBB#2 stephon L3,L4,L5 08 Sep 2019-80% relief completed right RFA L3,L4,L5 on 05 Dec 2019---rep orts 80% pain reduction Pain of sa croiliac joint 223229931 M53.3 completed left SI jt injection on 27 Mar 2019--80% pain reduction Numbness of hand 3767121 04 R20.0 Occasional numbness right hand index middle and ring fingerneed to reorder NCS / EMG of the UE to [facility] Chronic neck pain 463923 [address] C-spine (11 Jun 2018) -- mild DDD of the lower C-spine. No acute injury CT T-spine (11 Jun 2018)-- No abnormalit y [id number] Bhavik Garcia MD Main Office [address] [facility] [address] [place] [address] [place] [address] 02/16/2020 17:03:53 02/23/2020 18:27:24 Opioid dependence 38880020 F11.20 started suboxone on 06 November 2018[facility] Numbness of hand 5521379 04 R20.0 Occasional numbness right hand index middle and ring fingerneed to reorder NCS / EMG of the UE to [facility] PTOrder was not improved through tricarePt is PCSing out of area through the in 3 weeks Pain of sa croiliac joint 152643449 M53.3 completed left SI jt injection on 27 Mar 2019--80% pain reduction Pt reports 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 Mild degenerati ve changes of T12-L3, No CS, No NFS completed stephon L3,L4, L5 MBB#1 on 13 Feb 2019 -- reports>80 % pain reductionC ompleted MBB#2 stephon L3,L4,L5 08 Sep 2019-80% relief completed right RFA L3,L4,L5 on 05 Dec 2019---rep orts 80% pain reduction Chronic neck pain 032618 [address] C-spine (11 Jun 2018) [...] [facility] Damir Guardado [id number] Holly Guardado 12/05/2019 [facility] Damir Guardado [id number] Holly Guardado 12/18/2019 [facility] Damir Guardado [id number] Holly Guardado 01/19/2020 [facility] Damir Guardado [id number] Holly Guardado 02/16/2020 [facility] Damir Guardado [id number] Holly Guardado Notes Date Note Type Note [...] a 5/10. RR Bhavik Garcia MD [address] [facility] [address], [place], [address], [facility] 11/24/2019 [...] attending counseling 2-3 times a month with [facility]. 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 Bhavik Garcia MD [address], [address], [facility] 01/20/2020 23:50:24 02/16/2020 text/html A[facility] HPI PAINReported [email or web address].Location:bot h head; both Neck; right Shoulder; both [...] at a 3/10. RR Bhavik Garcia MD [address] [address], [place], [address], [place] [facility] 02/18/2020 23:20:45 OBGyn Episode No OBEpisode recorded.
--- OUTSIDE RECORDS SUMMARY | 2024-12-07 08:40 | XMS_ITS | Data Portability ---
Author Organization [place] [facility] Address [address] [place] [address] Care Team Providers Care Set Up Technician Name Role Phone GLADE Primary Care Provider Assessment Encounter Date Assessment Date Assessment LastModified by Organization Details LastModified Time 02/06/2023 02/06/2023 This document was scribed by FARAZ Hayes [email or web address] Not available 02/06/2023 18:34:10 06/04/2023 06/04/2023 Patient [...] Modified Time Details Appointments None recorded. Lab None recorded. Referral None recorded. Procedures None recorded. Surgeries None recorded. Imaging None recorded. Medication Orders Zetia 10 mg tablet 2022 023 [facility], [address] [place] [address], [address], 10:27:07 Lipitor 80 mg tablet 2022 023 [facility], [address] [place], [place], [id number], 10:27:11 Bystolic 5 mg tablet 2022 023 [facility], [address] [place] [address], [address], 10:27:08 Lasix 40 mg tablet 2022 023 [facility], [address] [place] [address], [address], 10:27:08 Lasix 20 mg tablet 2022 023 [place] [facility], [address], [place], [id number], 18:37:03 Patient TargetsNo targets recorded. Patient Instructions Encounter Date Encounter Id Patient Instructions Last Modified By Organization Details Last Modified Time 06/04/2023 [id number] Low cholesterol diet advised Low sodium diet advised. [email or web address] Not available 06/04/2023 10:26:59 12/06/2023 [id number] Low cholesterol diet advised Low sodium diet advised. [email or web address] Not available 12/06/2023 10:38:58 Reason for Referral None Reported. Results Created Date Observation Date Name Description Value Unit Range Abnormal Flag Note LastModifiedBy Organization Detail LastModifiedTime 02/08/2002/06/2023 elect rocabner diogr am No observ ation record ed. [email or web address] Not Available 2022 11:05:46 05/03/20 23 03/24/2023 fabby can cardi olite stres s test (PROC ) No observ ation record ed. [email or web address] Not Available 2022 14:51:42 07/27/19 24 07/23/2023 , echo ardio gram No observ ation record ed. est [facility] [address] [facility] [address], [place], [address], 08/05/2023 14:55:01 12/11/19 24 12/06/2023 elect rocar diogr am No observ ation record ed. [email or web address] Not Available 2023 18:13:40 06/03/20 06/03/2024 ashwin lozagr am No observ ation record ed. [email or web address] Not Available 2023 18:04:05 Result Notes None recorded. Problems Name Problem SNOMED Code Status Onset Date Resolution Date Notes Provider Name and Address Organization Details Recorded Time Edema 399739523 Active 2022 [facility], [facility] 3 12:39:45 Atypical chest pain 214533259 Active 2022 [facility] null, [facility] 3 12:39:54 Dyspnea on exertion 63447736 Active [address] [facility], [facility] 3 12:40:00 Dyslipidemia 498003705 Active 2023 [facility], [facility] 4 19:58:53 Essential hypertension 70339254 Active 2023 [facility] 4 19:59:11 History of cerebrovascula r accident 102940224 Active 2023 [facility], [facility] 4 19:59:27 Problem Notes None recorded. Procedures Surgical History Date Name Laterality Status Provider Name and Address Organization Details Recorded Time operation on stomach completed [facility] 05/25/2023 12:52:55 Imaging Results None recorded. Procedure Notes None [...] in Arterial blood by Pulse oximetry Systolic And Diastolic Provider Name and Address Organization Details Last Updated DateTime 4 177.8 cm 41.1 kg/m2 986845. 93 g 76 /min 97 % 97 % 108/72 mm[Hg] Kady Ambrocio [place] [facility] 4 10:18:10 Date Recorded Body height Body mass index (BMI) Body weight Heart rate Respiratory rate Oxygen saturation Oxygen saturation in Arterial blood by Pulse oximetry Provider Name and Address Organization Details Last Updated DateTime 3 177.8 cm 45.6 kg/m2 502326. 37 g 102 /min 18 /min 93 % 93 % Zen Roche [facility] 3 18:10:41 Date Recorded Body height Body mass index (BMI) Body weight Heart rate Oxygen saturation Oxygen saturation in Arterial blood by Pulse oximetry Systolic And Diastolic Provider Name and Address Organization Details Last Updated DateTime 4 177.8 cm 40.3 kg/m2 464564. 46 g 107 /min 95 % 95 % 151/97 mm[Hg] Fay Carrero [facility] 4 11:41:36 Date Recorded Body height Heart rate Oxygen saturation Oxygen saturation in Arterial blood by Pulse oximetry Body mass index (BMI) Body weight Systolic And Diastolic Provider Name and Address Organization Details Last Updated DateTime 3 177.8 cm 84 /min 87 % 87 % 42.9 kg/m2 718964. 12 g 139/86 mm[Hg] Fay Carrero [facility] 3 09:40:23 Social History None recorded. Functional Status None recorded. Mental Status None recorded. Family History Nothing Reported. Medical History No medical history recorded. Gynecological HistoryNo gynecological history recorded. Obstetrics History GPAL:G 0 P 0 0 0 0 Past Encounters Encounter ID Performer Location Encounter Start Date Encounter Closed Date Diagnosis/Indication Diagnosis SNOMED-CT Code Diagnosis ICD10 Code Diagnosis Note [id number] Sixto Feldman MD [place] [facility] [place] [address] 02/06/2023 17:16:06 02/06/2023 18:36:32 Edema 278698794 R60.9 will start lasix 20 mg dailywe might consider jardiance in the future Atypical chest pain 1025 64909 R07.89 Treadmill Myoview Stress test, has high [place] Risk score. Has Known CAD, or CAD risk equivalent . To look for any ischemia. Dyspnea on exertion 6084 5006 R06.09 will do echo to the see the structure of the heart [id number] Sixto Feldman MD [place] [facility] [place] [address] 06/04/2023 09:27:03 06/04/2023 10:31:41 Edema 780490567 R60.9 continue lasix 40 mg dailywe might consider jardiance in the future Dyspnea on exertion 6084 5006 R06.09 will do echo to the see the structure of the heart Atypical chest pain 1025 70684 R07.89 negative stress test ontin ue with monitoring continue with baby aspirin Dyslipidemia 334127935 E 78.5 *Last LDL was 107 done on 03/29/23.P t takes lipitor 80 mg daily.will start her on zetia 10 mg dailyTG Is 223 done 03/2023 add fish oil BID daily Essential hypertension 01007131 I10 BP mildly elevated today, she will bring number with her next timecontin ue with bystolic 5 mg daily History of cerebrovascular accident 410592870 Z86.73 continue with aspirin [id number] Sixto Feldman MD [place] [facility] [place] [address] 12/06/2023 10:00:34 12/06/2023 10:41:39 Edema 660693747 R60.9 continue lasix 40 mg daily Dyslipidemia 809380706 E 78.5 *Last LDL was 107 done on 03/29/23.P t takes lipitor 80 mg daily.cont inue with zetia 10 mg dailyTG Is 223 done 03/2023 continue fish oil BID dailyrepea t lipid panel Essential hypertension 73304234 I10 BP is well controlled continue with bystolic 5 mg daily History of cerebrovascular accident 180494641 Z86.73 continue with aspirin [id number] Sixto Feldman MD [place] [facility] [place] [address] 06/03/2024 11:18:39 06/03/2024 12:28:23 Edema 679459298 R60.9 continue lasix 40 mg daily Dyslipidemia 932670102 E 78.5 *Last LDL was 107 done on 03/29/23.P t takes lipitor 80 mg daily.cont inue with zetia 10 mg dailyTG Is 223 done 03/2023 continue fish oil BID dailyrepea t lipid panel Essential hypertension 27117404 I10 BP is well controlled continue with bystolic 5 mg daily History of cerebrovascular accident 731351777 Z86.73 continue with aspirin Health Concerns Section Related Observation LastModified by Organization Detai ls LastModified Time None Recorded Concern Status LastModified by Organization Details LastModified Time None Recorded Advance Directives Directive None Recorded Payers Insurance Date Sequence Insurance Name Policy Number Policy Wilks Covered Member ID Wilks Member ID Guarantor Name 06/03/2024 2 [facility] Holly Black [id number] Holly Black 05/29/2024 1 [employer] [id number] Damir Black [id number] Holly Black Notes Date Note Type Note Provider Name and Address Organization Details Recorded Time 02/06/2023 text/html 02/07/23CC: Lowe r exremity Yahir BLACK is 42 years-old Female with h/o [...] done on .Pt takes. Sixto Feldman MD [address] [place], [address], [facility] 02/06/2023 18:37:01 06/04/2023 text/html [...] 0.70 BUN 11 GL 93 CA 9.7,CK Total-159,CJBZ2F-6.3,L IPID-CHOL 187 HDL 42 LDL 107 TRIG 223 *Had Adequate Stress with Lexiscan on 03/24/23 with Normal LV systolic function. LVEF: 60%. Previously:Last visit came for cardiac evaluation due to Edema. She occasional with chest pain and dyspnea on exertion. SEAN MUNOZ [facility] [place] [facility] 06/04/2023 10:27:10 12/06/2023 text/html 12/06/23CC : William richter follow up chest painHolly BLACK is 43 [...] 0.70 BUN 11 GL 93 CA 9.7,CK Total-159,BULL9Y-7.3,L IPID-CHOL 187 HDL 42 LDL 107 TRIG 223 *Had Adequate Stress with Lexiscan on 03/24/23 with Normal LV systolic function. LVEF: 60%. She occasional with chest pain and dyspnea on exertion. JO [facility] 12/06/2023 10:39:03 06/03/2024 text/html CC [...] systolic function. LVEF: 60%. Sixto Feldman MD [address] [place], [address], [facility] 06/03/2024 12:24:17 OBGyn Episode No OBEpisode recorded.
--- OUTSIDE RECORDS SUMMARY | 2024-12-07 08:40 | XMS_ITS | Clinical Summary ---
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
--- OUTSIDE RECORDS SUMMARY | 2024-12-07 08:41 | XMS_ITS | Patient Health Record ---
Author Organization [facility] Address [address] [place], [place] [address] Care Team Providers Care Home Coordinator Name Role Phone KENYON HARRIS Unavailable [phone] Darci Woody Unavailable Unavailable Allergies Allergen (clinical drug ingredient) Drug/Non Drug Allergy documented on EMR Reaction Allergy Type Onset Date Status lorazepam Lorazepam other Drug Allergy Active oxycodone Oxycodone other Drug Allergy Active zolpidem Zolpidem other Drug Allergy Active Reason For Referral Reason [facility] REFERRAL ( S URGERY ) [address]28 1 UN[address] / [facility] STONE / [facility]. KLL Diagnosis 1 Tailor's bunion of r ight foot (M21.621) Referred Organization [facility] Referred Provider KENYON HARRIS Referred Address [address],[place], [id number] Referred Provider Specialty Podiatry Referral Priority Routine Medications Medication SIG (Take, Route, Frequency, Duration) Notes Start Date End Date Status Atorvastatin Calcium 80 MG TAKE 1 TABLET BY MOUTH EVERY DAY Oral for 90 Days Active Meloxicam 7.5 MG Oral for 30 Days Active Atorvastatin Calcium 80 MG Oral for 90 Days Active Levothyroxine Sodium 137 MCG Oral for 90 Days Active Aimovig 70 MG/ML ADMINISTER 1 ML UNDE R THE SKIN EVERY 30 DAYS Subcutaneous for 30 Days Active Immunizations Vaccine Route Administration Date Status Comme nts Influenza virus vaccine, quadrivalent, live (LAIV4), for intranasal use Unknown 05/03/2015 Administered Influenza virus vaccine, quadrivalent, live (LAIV4), for intranasal use Unknown 05/03/2015 Administered Influenza virus vaccine, quadrivalent, live (LAIV4), for intranasal use Unknown 05/05/2014 Administered Influenza virus vaccine, quadrivalent, live (LAIV4), for intranasal use Unknown 05/05/2014 Administered Influenza virus vaccine, quadrivalent, live (LAIV4), for intranasal use Unknown 05/07/2013 Administered Pfizer-Biontech Covid-19 Vac cine 1st dose Unknown 10/21/2020 Administered Pfizer-Biontech Covid-19 Vac cine 1st dose Unknown 10/21/2020 Administered Pfizer-Biontech Covid-19 Vac cine 1st dose Unknown 10/21/2020 Administered Pfizer-Biontech Covid-19 Vac cine 1st dose Unknown 09/28/2020 Administered Pfizer-Biontech Covid-19 Vac cine 1st dose Unknown 09/28/2020 Administered Pfizer-Biontech Covid-19 Vac cine 1st dose Unknown 09/28/2020 Administered HPV (human papillomavirus), quadrivalent, 3 dose schedule Unknown 01/21/2007 Administered HPV (human papillomavirus), quadrivalent, 3 dose schedule Unknown 01/21/2007 Administered HPV (human papillomavirus), quadrivalent, 3 dose schedule Unknown 09/14/2006 Administered HPV (human papillomavirus), quadrivalent, 3 dose schedule Unknown 09/14/2006 Administered HPV (human papillomavirus), quadrivalent, 3 dose schedule Unknown 07/11/2006 Administered HPV (human papillomavirus), quadrivalent, 3 dose schedule Unknown 07/11/2006 Administered Influenza (split), 3 yrs and above Unknown 05/28/2012 A dministered Influenza (split), 3 yrs and above Unknown 05/28/2012 A dministered Influenza (split), preservat anabel free, 6-35 months Unknown 05/19/2009 Administered Influenza (split), preservat anabel free, 6-35 months Unknown 05/19/2009 Administered Influenza (split), preservat anabel free, 6-35 months Unknown 05/04/2008 Administered Influenza (split), preservat anabel free, 6-35 months Unknown 05/04/2008 Administered Influenza (split), preservat anabel free, 6-35 months Unknown 09/24/2007 Administered Influenza (split), preservat anabel free, 6-35 months Unknown 09/24/2007 Administered Influenza (whole) Unknown 07/11/2006 Administered Influenza (whole) Unknown 07/11/2006 Administered Influenza (whole) Unknown 05/29/2002 Administered Influenza (whole) Unknown 05/29/2002 Administered Influenza, quadrivalent, spl it, preservative free, 3 years or older Unknown 06/04/2020 Administered Influenza, quadrivalent, spl it, preservative free, 3 years or older Unknown 06/04/2020 Administered Influenza, quadrivalent, spl it, preservative free, 3 years or older Unknown 04/18/2019 Administered Influenza, quadrivalent, spl it, preservative free, 3 years or older Unknown 04/18/2019 Administered Influenza, quadrivalent, spl it, preservative free, 3 years or older Unknown 06/05/2018 Administered Influenza, quadrivalent, spl it, preservative free, 3 years or older Unknown 06/05/2018 Administered Influenza, quadrivalent, spl it, preservative free, 3 years or older Unknown 06/19/2017 Administered Influenza, quadrivalent, spl it, preservative free, 3 years or older Unknown 06/19/2017 Administered Influenza, quadrivalent, spl it, preservative free, 3 years or older Unknown 05/15/2016 Administered Influenza, quadrivalent, spl it, preservative free, 3 years or older Unknown 05/15/2016 Administered Influenza, seasonal, injecta ble, preservative free, 6-35 months Unknown 04/21/2011 Administered Influenza, seasonal, injecta ble, preservative free, 6-35 months Unknown 04/21/2011 Administered Influenza, unspecified formulation Unknown 06/04/2020 A dministered Chadian encephalitis Unknown 05/05/2019 Administered Chadian encephalitis Unknown 05/05/2019 Administered MMR Unknown 05/05/2019 Administered MMR Unknown 05/05/2019 Administered MMR Unknown 05/28/2009 Administered MMR Unknown 05/28/2009 Administered Novel [id number] Unknown 05/19/2009 Administered Novel [id number] Unknown 05/19/2009 Administered Td (adult), adsorbed Unknown 03/04/2018 Administered Td (adult), adsorbed Unknown 03/04/2018 Administered Td (adult), adsorbed Unknown 04/21/2002 Administered Td (adult), adsorbed Unknown 04/21/2002 Administered Tdap Unknown 05/28/2012 Administered Tdap Unknown 05/28/2012 Administered Varicella Unknown 07/27/2009 Administered Varicella Unknown 07/27/2009 Administered Varicella Unknown 05/28/2009 Administered Varicella Unknown 05/28/2009 Administered Influenza virus vaccine, quadrivalent, live (LAIV4), for intranasal use Unknown 05/07/2013 Administered Pfizer-Biontech Covid-19 Vac cine 1st dose Unknown 10/21/2020 Administered Pfizer-Biontech Covid-19 Vac cine 1st dose Unknown 09/28/2020 Administered Influenza, unspecified formulation Unknown 06/04/2020 A dministered Vital Signs Height-cm 177.80 cm 12/04/2024 Weight-kg 113.4 kg 12/04/2024 Height 70.00 in 12/04/2024 Weight 250 lbs 12/04/2024 BMI 35.87 kg/m2 12/04/2024 Encounters Encounter Location Date Provider [facility] [address] [place] [id number] 10/23/2024 KENYON HARRIS [facility] [address] [place] [id number] 12/04/2024 KENYON HARRIS [facility] [address] [place] [id number] 04/24/2024 KENYON Jurado's bunion of right foot M21.621 ; Bunionette of left foot M21.622 and Pain in right foot M79.671 [facility] [address] [place] [id number] 05/22/2024 KENYON HARRIS Tailor's bunion of right foot M21.621 ; Bunionette of left foot M21.622 ; Pain in right foot M79.671 and Left foot pain M79.672 [facility] [address] [place] [address] [id number] 06/26/2024 KENYONRACH HARRIS Tailor's bunion of right foot M21.621 ; Bunionette of left foot M21.622 ; Pain in right foot M79.671 and Left foot pain M79.672 [facility] [place] [address] [place] [address] [id number] 07/24/2024 KENYON Jurado's bunion of right foot M21.621 ; Bunionette of left foot M21.622 ; Pain in right foot M79.671 and Left foot pain M79.672 [facility] [place] [address] [place] [id number] 08/14/2024 KENYON STEVEN Tailor's bunion of right foot M21.621 and Pain in right foot M79.671 [facility] [place] [address] [place] [id number] 10/30/2024 KENYON HARRIS Tailor's bunion of right foot M21.621 ; Neoplasm of unspecified behavior of bone, soft tissue, and skin D49.2 ; Encounter for other specified surgical aftercare Z48.89 and Pain in right foot M79.671 [facility] [place] [address] [place] [address] [id number] 11/06/2024 KENYON HARRIS Tailor's bunion of right foot M21.621 ; Neoplasm of unspecified behavior of bone, soft tissue, and skin D49.2 and Encounter for other specified surgical aftercare Z48.89 [facility] [place] [address] [id number] 10/24/2024 KENYON HARRIS [facility] [place] [address] [id number] 10/01/2024 KENYON HARRIS Assessments Encounter Date Diagnosis [...] bunion of right foot (ICD-10 - M21.621) 10/30/2024 Neoplasm of unspecified behavior of bone, soft tissue, and skin (ICD-10 - D49.2) 10/30/2024 Tailor's bunion of right foot (ICD-10 - M21.621) 11/06/2024 Neoplasm of unspecified behavior of bone, soft tissue, and skin (ICD-10 - D49.2) 11/06/2024 Tailor's bunion of right foot (ICD-10 - M21.621) 11/06/2024 Encounter for other specified surgical aftercare (ICD-10 - Z48.89) 04/24/2024 Pain in right foot (ICD-10 - M79.671) 10/30/2024 Encounter for other specified surgical aftercare (ICD-10 - Z48.89) 07/24/2024 Bunionette of left foot (ICD-10 - M21.622) Surgical correction was discussed. The patient opted not to proceed at this time. 06/26/2024 Bunionette of left foot (ICD-10 - M21.622) 05/22/2024 Pain in right foot (ICD-10 - M79.671) 05/22/2024 Left foot pain (ICD-10 - M79.672) 06/26/2024 Pain in right foot (ICD-10 - M79.671) 07/24/2024 Pain in right foot (ICD-10 - M79.671) 10/30/2024 Pain in right foot (ICD-10 - M79.671) 07/24/2024 Left foot pain (ICD-10 - M79.672) 06/26/2024 Left foot pain (ICD-10 - M79.672) 12/04/2024 Other Following skin prep, a total of 3 ccs of a 1-1-1 mix of 0.5% marcaine plain, Kenalog, and dexamethasone sodium phosphate was injected into the patients left 5th MTH 08/14/2024 Other Patient with check with his [...] - excision of 5th MTH right foot 10/30/2024 Other Dressing Change : The old dressing was removed. Utilizing aseptic technique, a new sterile compression dressing was applied. Patient was instructed to keep it dry and not remove it. 11/06/2024 Other Suture Removal: The sutures were removed. Shoes: Patient may return to normal shoes as tolerated. Plan Of Treatment No Information Insurance Providers Payer Name Payer Address Payer Phone Subscriber Number Group Number Insured Name Patient Relationship to Insured Coverage Start Date Coverage End Date [facility] ([facility] ATTN CLAIMS [address] [place] [address] [id number] ANGELICA BLACK Self - patient is the insured [facility] [address] [place] [address] [id number] GISSEL BLACK Spouse - patient is the spouse of the insured Medical (General) History Medical History History ICD Code anxiety high blood pressure insomnia
--- OUTSIDE RECORDS SUMMARY | 2024-12-07 08:41 | XMS_ITS | Referral Summary ---
Author Organization [address] Address [address] [place] [id number] Care Team Providers Care Bookkeeping Teacher Name Role Phone Saul Ruelas MD Primary Care Provider [phone] Abiodun Red MD Unavailable [phone] Issac Amador MD Unavailable [phone] Encounters Date Type Department Care Team Description 11/25/2024 11:15 AM CDT Office Visit [facility] [address] [place] [phone] Vicenta Early PA Sicca complex (Primary Dx); Polyarthralgia 09/16/2024 Orders Only [facility] [address] [place] [phone] Vicenta Early PA from Last 3 Months Allergies No known active allergies Medications atorvastatin (LIPITOR) 40 mg tablet 09/16/19 21 Active cyclobenzaprine (FLEXERIL) 10 mg tablet 09/29/19 21 Active Synthroid 137 mcg tablet 09/16/19 21 Active pregabalin (LYRICA) 150 [...] (40 mg total) by mouth daily Active hydrOXYzine (VISTARIL) 50 mg capsule TAKE [...] topically 2 (two) times a day Active eszopiclone (LUNESTA) 3 mg tabletIndication s:Insomnia Take 1 tablet (3 mg total) by mouth daily Take immediately before bedtime 30 tablet 3 09/08/19 25 Active cevimeline (EVOXAC) 30 mg capsuleIndicatio ns:Xerostomia Secondary to Sjogren's Syndrome Take 1 capsule (30 mg total) by mouth 3 (three) times a day 90 capsule 2 11/26/19 026 Active meloxicam (MOBIC) 7.5 mg tablet Take 1 tablet (7.5 mg total) by mouth daily 30 tablet 2 11/26/19 25 026 Active pilocarpine (SALAGEN) 5 mg tablet 09/16/19 21 025 Discontin ued(Patie nt Reported) hydroxychloroqui ne (PLAQUENIL) 200 mg tablet Take 1 tablet (200 mg total) by mouth daily 08/20/19 25 025 Discontin ued(Patie nt Reported) meloxicam (MOBIC) 7.5 mg tablet Take 1 tablet (7.5 mg total) by mouth daily 30 tablet 09/01/19 25 025 Discontin ued(Reord er) Active Problems Problem Noted Date Diagnosed Date Polyarthralgia 11/25/2024 Assessment & Plan (11/25/2024 11:53 AM CDT): No evidence for an inflammatory arthritis on US, XR, or serologies so will defer restarting HCQ at this time. Likely multifactorial with chronic pain from fibromyalgia and degenerative arthritis. She is currently on suboxone through pain management. [place] some relief with meloxicam so will resume meloxicam 7.5mg daily. Sicca complex 09/01/2024 Overview (09/19/2024): 09/01/24: CBC [...] inflammation or erosion seen Assessment & Plan (11/25/2024 11:37 AM CDT): 44-year-old female with PMHx of HTN, HLD, stoke, blood clot, TONY, eczema, depression, anxiety, fibromyalgia, anemia, thyroid disease, GERD, and migraines here for evaluation of sicca symptom. C/o dry eyes, mouth, and skin tx [...] with activity/end of day suggestive of DJD. Rheumatologic evaluation with [facility] showed an isolated anti-thyroglobulin consistent with history of thyroid disease. [facility] panel was otherwise unremarkable for any other autoantibodies. XR of both hands was normal. US of the L hand/wrist did not show any significant findings to suggest an inflammatory arthritis. -Serologies are negative for Sj gren's syndrome. Discussed that definitive diagnosis at this point would be based on a salivary gland biopsy; however, this would not change the treatment plan which is based on symptomatic treatment of sicca symptoms. -Discussed that there is poor clinical evidence to suggest benefit of sicca symptoms with HCQ and that this is more beneficial for the extraglandular manifestations of Sjogren's. -Will stop pilocarpine due to s/e (diaphoresis) and start cevimeline 30mg. Advised to start 30mg once daily titrate up to 30mg TID if tolerated. -Will resume Meloxicam 7.5mg daily as she noted benefit of joint pain with this. -Follow up in 3 months. Sooner if needed. Assessment & Plan (09/01/2024 12:03 PM SURGICAL ATTENDANT): 44-year-old female with PMHx of HTN, HLD, [...] dosing due to hx GERD. Will contact shell [employer] for records. Follow up in 2 weeks. Sooner if needed. Seen with Dr. Amador. TONY (obstructive sleep apnea) 10/05/2020 Assessment & Plan (07/01/2024 10:25 AM SURGICAL ATTENDANT): Patient continue with CPAP at 8 cm water pressure while sleeping. She was intolerable of higher pressures in the past. DME is [facility]. Assessment & Plan (06/28/2023 11:59 AM SURGICAL ATTENDANT): Due to continued symptoms, the patient will continue CPAP at 8 cm water pressure. The patient has an elevated AHI, however she is intolerant of higher pressure. Denied need for supplies. DME [facility] Assessment & Plan (06/27/2022 12:02 PM SURGICAL ATTENDANT): Patient continue to wear CPAP at 8 cm water pressure while sleeping. Her DME is [facility]. The patient did not tolerate an increase in her pressures in the past. Assessment & Plan (06/30/2021 11:05 AM SURGICAL ATTENDANT): Patient continue to wear CPAP at 8 [...] masks. The patient denied need for supplies. [place]. The patient and I discussed the recall [...] her mouth coming open while sleeping. The [employer] company is [employer]. The patient is benefitting from CPAP therapy. Other insomnia 10/05/2020 Assessment & Plan (07/01/2024 10:25 AM SURGICAL ATTENDANT): The patient continues with Lunesta 3 mg on most nights. Assessment & Plan (06/28/2023 11:58 AM SURGICAL ATTENDANT): Due to continued symptoms, the patient will continue Lunesta 3 mg nightly. I have refilled the medication and will refill for 1 year Patient is aware that she should wear her CPAP machine if taking the medication. Assessment & Plan (06/27/2022 12:02 PM SURGICAL ATTENDANT): The patient will continue with Lunesta 3 mg p.o. at bedtime to treat insomnia. Assessment & Plan (06/30/2021 11:04 AM SURGICAL ATTENDANT): The patient will continue with Lunesta 3 [...] on file Legal Sex Female 9:00 AM SURGICAL ATTENDANT Gender Identity Female 09/06/2024 3:20 PM SURGICAL ATTENDANT Sexual Orientation Not on file Last Filed Vital Signs Vital Sign Reading Time Taken Comments Blood Pressure 128/86 11/25/2024 10:57 AM CDT Pulse 92 11/25/2024 10:57 AM CDT Temperature 36.4 C (97.6 F) 07/01/2024 9:59 AM SURGICAL ATTENDANT Respiratory Rate 18 07/01/2024 9:59 AM SURGICAL ATTENDANT Oxygen Saturation 97% 11/25/2024 10:57 AM CDT Inhaled Oxygen Concentration - - Weight 121 kg (266 lb 12.8 oz) 11/25/2024 10:57 AM CDT Height 177.8 cm (5' 10 ) 11/25/2024 10:57 AM CDT Body Mass Index 38.28 11/25/2024 10:57 AM CDT Plan of Treatment Not on file Procedures Procedure Name Priority Date/Time Associated Diagnosis Comments SCAN - RADIOLOGY/IMAGING 09/16/2024 4:34 PM SURGICAL ATTENDANT from Last 3 Months Results * SCAN - RADIOLOGY/IMAGING (09/16/2024 4:34 PM SURGICAL ATTENDANT) Anatomical Region Laterality Modality Other Vicenta LANDA Final Result from Last 3 Months Insurance [facility] [employer] [place] [facility] [id number] [place] [id number] [employer] [place] [employer] Care Teams Bookkeeping Teacher Relationship Specialty Start Date End Date Saul Ruelas MD PCP - General Family Medicine 08/25/20 Abiodun Red MD [address] [place] [address] Referring Physician Neurology 11/27/22 Issac Amador MD [address] [place] [address] Consulting Physician Rheumatology 07/23/24
--- OUTSIDE RECORDS SUMMARY | 2024-12-07 08:41 | XMS_ITS | Clinical Summary ---
Author Organization [address] Address [address] [place] [id number] Care Team Providers Care Sales Recruiting Coordinator Name Role Phone Saul Ruelas MD Primary Care Provider [phone] Abiodun Red MD Unavailable [phone] Issac Amador MD Unavailable [phone] Allergies No known active allergies Medications [...] times a day 90 capsule 2 11/26/19 25 026 Active meloxicam (MOBIC) 7.5 mg tablet Take 1 tablet (7.5 mg total) by mouth daily 30 tablet 2 11/26/19 25 026 Active pilocarpine (SALAGEN) 5 mg tablet 09/16/19 21 025 Discontin ued(Patie nt Reported) hydroxychloroqui ne (PLAQUENIL) 200 mg tablet Take 1 tablet (200 mg total) by mouth daily 08/20/19 025 Discontin ued(Patie nt Reported) meloxicam (MOBIC) 7.5 mg tablet Take 1 tablet (7.5 mg total) by mouth daily 30 tablet 09/01/19 025 Discontin ued(Reord er) Active Problems Problem Noted Date Diagnosed Date Polyarthralgia 11/25/2024 Assessment & Plan (11/25/2024 11:53 AM CDT): No evidence for an inflammatory arthritis on US, XR, or serologies so will defer restarting HCQ at this time. Likely multifactorial with chronic pain from fibromyalgia and degenerative arthritis. She is currently on suboxone through pain management. Barton some relief with meloxicam so will resume [...] needed. Assessment & Plan (09/01/2024 12:03 PM INDUSTRIAL SPECIALIST): 44-year-old female with PMHx of HTN, [...] hand/wrist US to further evaluate. Increase Pilocarpine 5/5; avoiding higher dosing as she already notes diaphoresis with this. Continue HCQ 200mg daily for now. Will start meloxicam 7.5mg daily. Discussed side effects of the medication, including but not limited to GI upset, kidney, and ulcers. Deferring higher dosing due to hx GERD. Will contact italian tutor for records. Follow up in 2 weeks. Sooner if needed. Seen with Dr. Amador. TONY (obstructive sleep apnea) 10/05/2020 Assessment & Plan (07/01/2024 10:25 AM INDUSTRIAL SPECIALIST): Patient continue with CPAP at 8 cm water pressure while sleeping. She was intolerable of higher pressures in the past. DME is [employer]. Assessment & Plan (06/28/2023 11:59 AM INDUSTRIAL SPECIALIST): Due to continued symptoms, the patient will continue CPAP at 8 cm water pressure. The patient has an elevated AHI, however she is intolerant of higher pressure. Denied need for supplies. DME [employer] Assessment & Plan (06/27/2022 12:02 PM INDUSTRIAL SPECIALIST): Patient continue to wear CPAP at 8 cm water pressure while sleeping. Her DME is [employer]. The patient did not tolerate an increase in her pressures in the past. Assessment & Plan (06/30/2021 11:05 AM INDUSTRIAL SPECIALIST): Patient continue to wear CPAP at [...] her mouth coming open while sleeping. The [employer] company is [employer]. The patient is benefitting from CPAP therapy. Other insomnia 10/05/2020 Assessment & Plan (07/01/2024 10:25 AM INDUSTRIAL SPECIALIST): The patient continues with Lunesta 3 mg on most nights. Assessment & Plan (06/28/2023 11:58 AM INDUSTRIAL SPECIALIST): Due to continued symptoms, the patient will continue Lunesta 3 mg nightly. I have refilled the medication and will refill for 1 year Patient is aware that she should wear her CPAP machine if taking the medication. Assessment & Plan (06/27/2022 12:02 PM INDUSTRIAL SPECIALIST): The patient will continue with Lunesta 3 mg p.o. at bedtime to treat insomnia. Assessment & Plan (06/30/2021 11:04 AM INDUSTRIAL SPECIALIST): The patient will continue with Lunesta [...] Description 11/25/2024 11:15 AM CDT Office Visit [facility] [address] [place] [phone] Vicenta Early PA Sicca complex (Primary Dx); Polyarthralgia 09/16/2024 Orders Only [facility] [address] [place] [phone] Vicenta Early PA from Last 3 Months [...] on file Legal Sex Female 9:00 AM INDUSTRIAL SPECIALIST Gender Identity Female 09/06/2024 3:20 PM INDUSTRIAL SPECIALIST Sexual Orientation Not on file Obstetrics History Last Filed Vital Signs Vital Sign Reading Time Taken Comments Blood Pressure 128/86 11/25/2024 10:57 AM CDT Pulse 92 11/25/2024 10:57 AM CDT Temperature 36.4 C (97.6 F) 07/01/2024 9:59 AM INDUSTRIAL SPECIALIST Respiratory Rate 18 07/01/2024 9:59 AM INDUSTRIAL SPECIALIST Oxygen Saturation 97% 11/25/2024 10:57 AM CDT Inhaled Oxygen Concentration - - Weight 121 kg (266 lb 12.8 oz) 11/25/2024 10:57 AM CDT Height 177.8 cm (5' 10 ) 11/25/2024 10:57 AM CDT Body Mass Index 38.28 11/25/2024 10:57 AM CDT Plan of Treatment Health Maintenance Due Date Last Done Comments Breast Cancer Screening-Mammogram 1980 Cervical Cancer Screening 1980 Depression Screening 1980 Hepatitis C Screening 1980 DTaP/Tdap/Td Vaccine (1 - Tdap) 1991 Varicella Vaccines (1 of 2 - 13+ 2-dose series) 1993 Hepatitis B Screening 1998 Regular Well Visit/Exam 18-64 1998 Covid-19 Vaccine (3 2023-2 5 season) 2024 10/21/2020, 09/28/2020 Influenza Vaccine (Season Ended) 2025 06/04/2020 HPV Vaccines Aged Out No longer eligi ble based on patient's age to complete this topic Pneumococcal vaccine <65 Aged Out No longer eligible based on patient's age to complete this topic Procedures Procedure Name Priority Date/Time Associated Diagnosis Comments SCAN - RADIOLOGY/IMAGING 09/16/2024 4:34 PM INDUSTRIAL SPECIALIST from Last 3 Months Results * SCAN - RADIOLOGY/IMAGING (09/16/2024 4:34 PM INDUSTRIAL SPECIALIST) Anatomical Region Laterality Modality Other Vicenta LANDA Final Result from Last 3 Months Insurance [facility] Address: [address] [address] [place] [phone] Kickstarter [facility] [address] [place] [phone] BLUE ACCESS CHOICE [place] [facility] Care Teams Sales Recruiting Coordinator Relationship Specialty Start Date End Date aSul Ruelas MD PCP - General Family Medicine 08/25/20 Abiodun Red MD [address] [place] [address] Referring Physician Neurology 11/27/22 Issac Amador MD [address] [place] [address] Consulting Physician Rheumatology 07/23/24
--- OUTSIDE RECORDS SUMMARY | 2024-12-07 08:41 | XMS_ITS ---
Author Organization [facility] Address [address] [place], [place] [id number] Care Team Providers Care Food Safety Auditor Name Role Phone KENYON FORREST Unavailable [phone] Darci Woody Unavailable Unavailable Allergies Allergen (clinical drug ingredient) Drug/Non Drug Allergy documented on EMR Reaction Allergy Type Onset Date Status lorazepam Lorazepam other Drug Allergy Active oxycodone Oxycodone other Drug Allergy Active zolpidem Zolpidem other Drug Allergy Active REASON FOR VISIT left foot bunion Medications Medication SIG (Take, Route, Frequency, [...] 30 DAYS Subcutaneous for 30 Days Active Vital Signs Height 70.00 in 12/04/2024 Weight 250 lbs 12/04/2024 BMI 35.87 kg/m2 12/04/2024 Height-cm 177.80 cm 12/04/2024 Weight-kg 113.4 kg 12/04/2024 Encounters Encounter Location Date Provider Diagnosis [facility] [address] [place], [place] [id number] 12/04/2024 KENYON FORREST Assessments Encounter Date Diagnosis (ICD Code) Assessment Notes Treatment Notes Treatment Clinical Notes Section Notes 12/04/2024 Other Following skin prep, a total of 3 ccs of a 1-1-1 mix of 0.5% marcaine plain, Kenalog, and dexamethasone sodium phosphate was injected into the patients left 5th MTH Plan Of Treatment Treatment Notes Assessment Notes Other Following skin prep, a total of 3 ccs of a 1-1-1 mix of 0.5% marcaine plain, Kenalog, and dexamethasone sodium phosphate was injected into the patients left 5th MTH Progress Notes * ANGELICA BLACK LDOB: 0 (44 yo F)Acc No.[id number]:12/04/2024 Patient: ANGELICA ADKINS Provider: Kan Forrest DPM :1980 A ge:44 Y S ex:Female Date:12/04/2024 [facility]:[address] , [id number] Subjective: * Chief Complaints: * 1 . Left foot bunion. * HPI: H PI: Follow Up Visit P atient presents for follow-up visit for bunions on bilateral feet. Patient states she had surgery on her right foot in September, and it is doing fine, but the incision won't completely heal. She also states shortly after the surgery she started having pain in the left foot. She states it is very painful, and she was hoping to just get an injection in it. MA: sea. * Medical History: A nxiety, High blood pressure, Insomnia. * Family History: F ather: PRN - [...] of tobacco use :. * Medications: T aking Levothyroxine Sodium 137 MCG Tablet Oral , Taking Aimovig 70 MG/ML Solution Auto-injector ADMINISTER 1 ML UNDER THE SKIN EVERY 30 DAYS Subcutaneous , Taking Atorvastatin Calcium 80 MG Tablet TAKE 1 TABLET BY MOUTH EVERY DAY Oral , Taking Meloxicam 7.5 MG Tablet Oral , Taking Atorvastatin Calcium 80 MG Tablet Oral , Medication List reviewed and reconciled with the patient * Allergies: Z olpidem: other, Oxycodone: other, Lorazepam: other. Objective: * Vitals: W t:250lbs, Wt-k.4 kg, Ht: 70.00 in, Ht-cm: 177.80 cm, BMI:35.87Index, Body Surface Area: 2.36. * Examination: C onstitutional: Constitutional T he patient is awake, alert, well developed, well groomed and well nourished. . D ermatologic: Skin findings: S kin is warm, dry, supple with no breaks in the skin. . Nail pathology: N ails 1-5 bilateral are [...] is noted to be normal bilaterally . Tailors Bunion T here is a laterally prominent 5th metatarsal head of the left foot . Gait T here is normal gait noted . N eurologic: Muscle power: 5 /5 bilaterally . Gross sensation G ross sensation is intact to light touch. . V ascular: Dorsalis pedis pulse: 2 /4 bilateral . Posterior tibial pulse: 2 /4 bilaterally . Capillary refill: l ess than 3 seconds bilaterally . Temperature gradient: w ithin normal limits . ? Assessment: Plan: * Treatment: * Billing Information: * Visit Code: * Procedure Codes: * Electronic signature of KENYON FORREST DPM on 12/07/2024 at 08:41 AM CDT Sign off status: Pending * Provider: Kan Forrest DPM Date: 12/04/2024 Generated for Dalia grace/Valeri/Mary on: 12/07/2024 08:41 AM CDT History and Physical Notes * HPI (History of Present Illness) Category Sub-Category Detail Notes Category Not es HPI Follow Up Visit Patient presents for follow-up visit for bunions on bilateral feet. Patient states she had surgery on her right foot in September, and it is doing fine, but the incision won't completely heal. She also states shortly after the surgery she started having pain in the left foot. She states it is very painful, and she was hoping to just get an injection in it. MA: robert Examination Category Sub-Category Detail Notes Category Not es Constitutional Constitutional The patient is a wake, alert, well developed, well groomed and well nourished. Dermatologic Skin findings: Skin is warm, dr y, supple with no breaks in the skin. Nail pathology: Nails 1-5 bilateral are normal in appearance and thickness. No discoloration. Ulcer: There is no evidence of ulceration noted at this time Hyperkeratotic Skin Lesion There is no e vidence of hyperkeratosis Musculoskeletal Muscle Strength Muscle strength is 5/5 in regards to dorsiflexion, plantarflexion, inversion, and eversion in bilateral lower extremities. Tailors Bunion There is a laterally prominent 5th metatarsal head of the left foot Foot Structure The foot structure i [...]
--- NOTE | 2024-12-07 09:03 | ED.GENADULT ---
HPI - General Adult General Chief complaint: Extremity Injury, Lower Stated complaint: left foot injury Time Seen by Provider: 12/07/24 08:40 History of Present Illness HPI narrative: 44-year-old female presented emergency department for evaluation for left foot pain. Patient reports that last night as she was getting back into bed after using the restroom she felt intense pain at the left lateral aspect of her left foot. Patient states she did fall onto her bottom and response to the pain. Patient denies striking her head and has no loss of consciousness. Patient's primary complaint is left lateral foot pain. Patient does have a known bunion on that foot but has had no prior surgeries on that foot. Patient denies any proximal tib-fib, ankle pain. Related Data Home Medications ?Medication ?Instructions ?Recorded ?Confirmed ?Last Taken ?Type aspirin 81 mg tablet,delayed 81 mg PO DAILY 11/21/22 10/23/24 10/21/24 History release (Adult Aspirin Regimen) atorvastatin 40 mg tablet (Lipitor) 40 mg PO DAILY 11/21/22 10/23/24 10/22/24 History buprenorphine 8 mg-naloxone 2 mg 1 tablet sublingual TID 11/21/22 10/23/24 10/22/24 History sublingual tablet buspirone 15 mg tablet 15 mg PO DAILY 11/21/22 10/23/24 10/23/24 History duloxetine 60 mg capsule,delayed 60 mg PO DAILY 11/21/22 10/23/24 10/23/24 History release eszopiclone 3 mg tablet (Lunesta) 3 mg PO QHS 11/21/22 10/23/24 10/22/24 History fexofenadine 180 mg tablet 180 mg PO DAILY 11/21/22 10/23/24 10/22/24 History (Robyn Allergy) levothyroxine 137 mcg tablet 137 mcg PO DAILY 11/21/22 10/23/24 10/23/24 History (Synthroid) mometasone 50 mcg/actuation nasal 2 spray intranasal DAILY PRN 11/21/22 10/23/24 10/22/24 History spray Shortness Of Breath Or Wheezing mv-mn-folic 200 mcg-vit K 15 1 cap PO BID 11/21/22 10/23/24 10/20/24 History mcg-lutein 5 mg-zeaxanthin 1 mg capsule (PreserVision AREDS 2 Plus Multivit) nebivolol 5 mg tablet (Bystolic) 5 mg PO DAILY 11/21/22 10/23/24 10/23/24 History omeprazole 20 mg capsule,delayed 20 mg PO DAILY 11/21/22 10/23/24 10/22/24 History release pilocarpine HCl 5 mg tablet 5 mg PO TID 11/21/22 10/23/24 10/22/24 History pregabalin 150 mg capsule (Lyrica) 150 mg PO BID 11/21/22 10/23/24 10/23/24 History sumatriptan succinate 100 mg tablet See Rx Instructions PO .COMPLEX 11/21/22 09/22/24 Unknown History topiramate 50 mg tablet (Topamax) 50 mg PO TID 11/21/22 10/23/24 10/22/24 History atogepant 60 mg tablet (Qulipta) 60 mg PO DAILY 06/13/24 10/23/24 10/22/24 History cyclobenzaprine 10 mg tablet 10 mg PO TID 06/13/24 10/23/24 10/22/24 History erenumab-aooe 70 mg/mL 70 mg subcut DIRECTED 06/13/24 09/22/24 Unknown History subcutaneous auto-injector (Aimovig Autoinjector) hydroxyzine pamoate 50 mg capsule 50 mg PO DIRECTED 06/13/24 10/23/24 10/22/24 History trazodone 100 mg tablet 100 mg PO DIRECTED PRN insomnia 06/13/24 09/22/24 Unknown History lidocaine 1.8 % topical patch 1 patch topical DAILY 06/26/24 09/22/24 Unknown History omega 8-rhm-jdd-fish oil 60 mg-90 1 cap PO DAILY 06/26/24 10/23/24 10/20/24 History mg-500 mg capsule (Fish Oil) Allergies Allergy/AdvReac Type Severity Reaction Status Date / Time No Known Allergies Allergy Verified 10/23/24 12:26 Review of Systems Review of Systems: All systems reviewed & are unremarkable except as noted in HPI and below PMFSH Past Medical History Medical History Radial head fracture, closed Distal radius fracture, right Thompson's neuroma of right foot (~2016) Abdominal hernia (~2011) Previous gastric bypass complicating , antepartum (~2007) Surgical History Surgical History Hx of cholecystectomy (~2009) History of (~2007) Family History Family History Unknown Hypertension Depression Diabetes mellitus Cerebrovascular accident Social History Social History Smoking status: Never smoker Alcohol intake: never Substance use: never Substance use type: does not use Do You Feel Safe in your Home?: Yes Lack of Transportation: No Lack of Food: Never True Current Housing: I Have Housing Concerned About Future Housing: No Difficulty Paying Gas/Electric Bills: No Difficulty Paying for Meds: No Currently Unemployed: No Education: Associate Degree Difficulty w/ Childcare or Family Care: No Living arrangements: with family Occupation/Education: occupation 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 HEAD: normocephalic, atraumatic. EYES: PERRLA/EOMI, conjunctivae clear. NOSE: Normal no drainage NECK: Supple. No adenopathy, no masses. RESPIRATORY: Airway patent, respirations nonlabored. Clear to auscultation bilaterally, no rales, rhonchi, wheezing. CARDIOVASCULAR: Regular rate and rhythm without murmurs rubs or gallops. ABDOMINAL: Soft, nontender, nondistended, normal bowel sounds MUSCULOSKELETAL: Left lateral foot tenderness to palpation with no ecchymosis edema or deformity NEURO: Alert. Cranial nerves II through XII intact. Good gait. Good coordination SKIN: Warm, dry. Normal Color Course Vital Signs Vital signs: Vital Signs Temperature 98 F 12/07/24 09:09 Pulse Rate 85 12/07/24 09:09 Respiratory Rate 16 12/07/24 09:09 Blood Pressure 131/55 L 12/07/24 09:09 Pulse Oximetry 98 12/07/24 09:09 Oxygen Delivery Room Air 12/07/24 09:09 Temperature 98 F 12/07/24 09:09 Pulse Rate 70 12/07/24 10:45 Respiratory Rate 16 12/07/24 10:45 Blood Pressure 110/70 12/07/24 10:45 Pulse Oximetry 97 12/07/24 10:45 Oxygen Delivery Room Air 12/07/24 09:09 Medical Decision Making MDM Narrative Medical decision making narrative: 44-year-old female presenting to the emergency department for evaluation for left foot pain. X-ray did show a fracture of the 5th metatarsal. Patient was placed in a posterior short-leg splint here and provided crutches for limited weight-bearing. Patient was also provided a prescription for a walker. Patient does follow-up with Podiatry but she is unsure if her supervisor park workers is in town so patient will be referred to supervisor park workers. Patient will be provided Flexeril for muscle spasm for home. Patient declined any narcotic pain medications due to being on Suboxone. Differential Diagnosis Differential Diagnosis: Foot fracture, foot sprain, ankle fracture, ankle sprain left foot contusion Vital Signs Vital Signs: Vital Signs Temperature 98 F 12/07/24 09:09 Pulse Rate 85 12/07/24 09:09 Respiratory Rate 16 12/07/24 09:09 Blood Pressure 131/55 L 12/07/24 09:09 Pulse Oximetry 98 12/07/24 09:09 Oxygen Delivery Room Air 12/07/24 09:09 Temperature 98 F 12/07/24 09:09 Pulse Rate 70 12/07/24 10:45 Respiratory Rate 16 12/07/24 10:45 Blood Pressure 110/70 12/07/24 10:45 Pulse Oximetry 97 12/07/24 10:45 Oxygen Delivery Room Air 12/07/24 09:09 Imaging Data Radiologist's impression: Impressions Foot X-Ray 12/07/24 09:20 IMPRESSION: Incomplete oblique fracture within the proximal metaphysis of the fifth metatarsal with the base of the fifth metatarsal is intact. Discharge Plan Discharge Clinical Impression: Foot fracture, left Patient Disposition: Home Condition: Stable Instructions: Antibiotic Form, Crutch Instructions (ED), Foot Fracture in Adults (ED), Splint Care (ED) Additional Instructions: Splint care as directed. Crutches for nonweightbearing on the affected foot. Have close follow-up with Podiatry. Tylenol and ibuprofen for pain control. Flexeril for muscle spasm. If you have any worsening symptoms and please call or return to the emergency department. Patient Language: Singaporean Prescriptions: New cyclobenzaprine 10 mg tablet 10 mg PO BID PRN (Reason: muscle spasm) Qty: 14 0RF (DME) [facility] See Rx Instructions .Route Qty: 1 0RF Rx Instructions: As directed No Action cyclobenzaprine 10 mg tablet 10 mg PO TID hydroxyzine pamoate 50 mg capsule 50 mg PO DIRECTED trazodone 100 mg tablet 100 mg PO DIRECTED PRN (Reason: insomnia) Aimovig Autoinjector 70 mg/mL auto-injector 70 mg SUBCUT DIRECTED Qulipta 60 mg tablet 60 mg PO DAILY fluconazole 150 mg tablet 150 mg PO DAILY Qty: 2 0RF levothyroxine [Synthroid] 137 mcg tablet 137 mcg PO DAILY omeprazole 20 mg capsule,delayed release(DR/EC) 20 mg PO DAILY mometasone 50 mcg/actuation spray,non-aerosol 2 spray intranasal DAILY PRN (Reason: Shortness Of Breath Or Wheezing) Rx Instructions: administer into each nostril topiramate [Topamax] 50 mg tablet 50 mg PO TID sumatriptan succinate 100 mg tablet See Rx Instructions PO .COMPLEX Rx Instructions: take 1 tab at onset of headache; if no relief, may repeat 1 tab after at least 2 hrs; max = 2 tabs/24 hrs PO nebivolol [Bystolic] 5 mg tablet 5 mg PO DAILY fexofenadine [Robyn Allergy] 180 mg tablet 180 mg PO DAILY atorvastatin [Lipitor] 40 mg tablet 40 mg PO DAILY pregabalin [Lyrica] 150 mg capsule 150 mg PO BID aspirin [Adult Aspirin Regimen] 81 mg tablet,delayed release (DR/EC) 81 mg PO DAILY eszopiclone [Lunesta] 3 mg tablet 3 mg PO QHS buprenorphine-naloxone 8-2 mg tablet, sublingual 1 tablet sublingual TID pilocarpine HCl 5 mg tablet 5 mg PO TID PreserVision AREDS 2 Plus MV 200 mcg-15 mcg- 5 mg-1 mg capsule 1 cap PO BID duloxetine 60 mg capsule,delayed release(DR/EC) 60 mg PO DAILY buspirone 15 mg tablet 15 mg PO DAILY omega 7-wxc-jem-fish oil [Fish Oil] 60-90-500 mg capsule 1 cap PO DAILY lidocaine 1.8 % adhesive patch,medicated 1 patch topical DAILY Rx Instructions: leave on most painful area for up to 12 hrs meloxicam 15 mg tablet 15 mg PO DAILY Qty: 14 0RF alum-mag hydroxide-simeth [Advanced Antacid-Antigas] 200-200-20 mg/5 mL suspension 10 ml PO QID PRN (Reason: indigestion) Qty: 3000 0RF Rx Instructions: administer between meals and at bedtime ondansetron 4 mg tablet,disintegrating 4 mg PO Q8H PRN (Reason: nausea and vomiting) Qty: 30 0RF Follow-up/Referrals: Khurram Reich Jr., DPM [Physician] - PHYSICIAN NOT ON STAFF,NONSTAFF [Primary Care Provider] -
[2024-12-07 09:09] VITALS: BP 131/55; PULSE 85; RESP 16; TEMP 36.6; O2SAT 98
--- OUTSIDE RECORDS SUMMARY | 2024-12-07 09:16 | XMS_ITS | Clinical Summary ---
Author Organization [facility] Address [address] [place] [address] Care Team Providers Care Automotive Electrician Helper Name Role Phone Unavailable Primary Care Provider Unavailabl e Source Comments [facility],non-owned Affiliates and Associated Physician Practices is amultiple site organization consisting of ambulatory clinics and hospital sitesin [place], [place], [place] and [place]. This disclosure is being madepursuant to the Care Everywhere program and may not contain all information available regarding this patient. Last updated 18.[facility] [employer] Social History Tobacco Use Types Packs/Day Years [...] patient's age to complete this topic Insurance [facility] Address: [facility] [address] [place] [address] [facility] SELF PAY NO INSURANCE Member Subscriber Plan / Payer (Ef fective for All Dates) Name:Holly Black Member ID:Not on file Relation to Subscriber:Not on file Subscriber ID:Not on file Payer ID:Not on file Group ID:Not on file Type:Self Pay Address: [facility] SELF PAY NO INSURANCE Member Subscriber Plan / Payer (Ef fective for All Dates) Name:Holly Black Member ID:Not on file Relation to Subscriber:Not on file Subscriber ID:Not on file Payer ID:Not on file Group ID:Not on file Type:Self Pay Address: [facility] SELF PAY NO INSURANCE Member Subscriber Plan / Payer (Ef fective for All Dates) Name:Holly Black Member ID:Not on file Relation to Subscriber:Not on file Subscriber ID:Not on file Payer ID:Not on file Group ID:Not on file Type:Self Pay Address: [place], [place]
--- OUTSIDE RECORDS SUMMARY | 2024-12-07 09:16 | XMS_ITS | Encounter Summary ---
Author Organization [facility] Address [address] [place] [address] Care Team Providers Care Fire Hose Curer Name Role Phone Unavailable Primary Care Provider Unavailabl e Encounter Details Date Type Department Care Team (Late st Contact Info) Description 03/02/2022 Lab Requisition [facility] Lab [address] [place] [address] Niles George MD [address] [place] [address] Social History Tobacco Use Types Packs/Day Years [...] AM CDT) Case Report Dermatopathology Report Case: [id number] Authorizing Provider: Niles George MD Collected: 03/02/2022 12:00 AM Ordering Location: [facility] Care DermPath Lab Received: 03/02/2022 05:15 PM [...] characteristic determined by the Dermatopathology Laboratory at [facility], directed by Dr. Miguel Viramontes. These tests need not be, and therefore are not, approved by the [place] Food and Drug Administration. The tests are used for clinical purposes. Billing Codes Specimen Charges Stain Charges 23469 1 2 6:16 PM CDT DERMATOPATHOLOGY LABORATORY Embedded Images 2 6:16 PM CDT DERMATOPATHOLOGY LABORATORY Pathology/Cytolog y TISSUE SPECIMEN FROM SKIN / Unknown 03/02/2022 03/02/2022 5:15 PM CDT us Niles George MD LAB - PATHOLOGY/CYTOLOGY ORDERAB LES Final Result DERMATOPATHOLOGY LABORATORY [facility] - Department of Dermatology [address], [address] Floor [address] [phone] documented in this encounter Visit Diagnoses Not on filedocumented in this encounter
--- OUTSIDE RECORDS SUMMARY | 2024-12-07 09:16 | XMS_ITS | Clinical Summary ---
Author Organization [employer] Care Team Providers Care Braille Operator Name Role Phone Unavailable Primary Care [...]
--- OUTSIDE RECORDS SUMMARY | 2024-12-07 09:16 | XMS_ITS | Referral Summary ---
Author Organization [address] Address [address] [place] [address] Care Team Providers Care Immersion Metalcleaner Name Role Phone Saul Rueals MD Primary Care Provider [phone] Abiodun Red MD Unavailable [phone] Issac Amador MD Unavailable [phone] Encounters Date Type Department Care Team Description 11/25/2024 11:15 AM CDT Office Visit [facility] [address] [place] [phone] Vicenta Early PA Sicca complex (Primary Dx); Polyarthralgia 09/16/2024 Orders Only [facility] [address] [place] [address] [phone] Vicenta Early PA from Last 3 Months [...] is currently on suboxone through pain management. [place] some relief with meloxicam so will resume [...] needed. Assessment & Plan (09/01/2024 12:03 PM SPECTRAL SCIENTIST): 44-year-old female with PMHx of HTN, HLD, [...] dosing due to hx GERD. Will contact pewter finisher for records. Follow up in 2 weeks. Sooner if needed. Seen with Dr. Amador. TONY (obstructive sleep apnea) 10/05/2020 Assessment & Plan (07/01/2024 10:25 AM SPECTRAL SCIENTIST): Patient continue with CPAP at 8 cm water pressure while sleeping. She was intolerable of higher pressures in the past. DME is adapt. Assessment & Plan (06/28/2023 11:59 AM SPECTRAL SCIENTIST): Due to continued symptoms, the patient will continue CPAP at 8 cm water pressure. The patient has an elevated AHI, however she is intolerant of higher pressure. Denied need for supplies. DME adapt Assessment & Plan (06/27/2022 12:02 PM SPECTRAL SCIENTIST): Patient continue to wear CPAP at 8 cm water pressure while sleeping. Her DME is adapt. The patient did not tolerate an increase in her pressures in the past. Assessment & Plan (06/30/2021 11:05 AM SPECTRAL SCIENTIST): Patient continue to wear CPAP at 8 [...] masks. The patient denied need for supplies. [employer]. The patient and I discussed the recall [...] her mouth coming open while sleeping. The [employer] company is [employer]. The patient is benefitting from CPAP therapy. Other insomnia 10/05/2020 Assessment & Plan (07/01/2024 10:25 AM SPECTRAL SCIENTIST): The patient continues with Lunesta 3 mg on most nights. Assessment & Plan (06/28/2023 11:58 AM SPECTRAL SCIENTIST): Due to continued symptoms, the patient will continue Lunesta 3 mg nightly. I have refilled the medication and will refill for 1 year Patient is aware that she should wear her CPAP machine if taking the medication. Assessment & Plan (06/27/2022 12:02 PM SPECTRAL SCIENTIST): The patient will continue with Lunesta 3 mg p.o. at bedtime to treat insomnia. Assessment & Plan (06/30/2021 11:04 AM SPECTRAL SCIENTIST): The patient will continue with Lunesta 3 [...] on file Legal Sex Female 9:00 AM SPECTRAL SCIENTIST Gender Identity Female 09/06/2024 3:20 PM SPECTRAL SCIENTIST Sexual Orientation Not on file Last Filed Vital Signs Vital Sign Reading Time Taken Comments Blood Pressure 128/86 11/25/2024 10:57 AM CDT Pulse 92 11/25/2024 10:57 AM CDT Temperature 36.4 C (97.6 F) 07/01/2024 9:59 AM SPECTRAL SCIENTIST Respiratory Rate 18 07/01/2024 9:59 AM SPECTRAL SCIENTIST Oxygen Saturation 97% 11/25/2024 10:57 AM CDT Inhaled Oxygen Concentration - - Weight 121 kg (266 lb 12.8 oz) 11/25/2024 10:57 AM CDT Height 177.8 cm (5' 10 ) 11/25/2024 10:57 AM CDT Body Mass Index 38.28 11/25/2024 10:57 AM CDT Plan of Treatment Not on file Procedures Procedure Name Priority Date/Time Associated Diagnosis Comments SCAN - RADIOLOGY/IMAGING 09/16/2024 4:34 PM SPECTRAL SCIENTIST from Last 3 Months Results * SCAN - RADIOLOGY/IMAGING (09/16/2024 4:34 PM SPECTRAL SCIENTIST) Anatomical Region Laterality Modality Other Vicenta LANDA Final Result from Last 3 Months Insurance [facility] [employer] ACCESS CHOICE [place] [facility] [address] [place] [id number] [employer] ACCESS CHOICE [place] [employer] Care Teams Immersion Metalcleaner Relationship Specialty Start Date End Date Saul Ruelas MD PCP - General Family Medicine 08/25/20 Abiodun Red MD [address] [place] [address] Referring Physician Neurology 11/27/22 Issac Amador MD [address] [place] [address] Consulting Physician Rheumatology 07/23/24
--- OUTSIDE RECORDS SUMMARY | 2024-12-07 09:16 | XMS_ITS | Clinical Summary ---
Author Organization [address] Address [address] [place] [phone] Care Team Providers Care Computer Engineer Name Role Phone Saul Ruelas MD Primary Care Provider [phone] Abiodun Red MD Unavailable [phone] Issac Amador MD Unavailable [phone] Allergies No known active allergies Medications [...] is currently on suboxone through pain management. [place] some relief with meloxicam so will resume [...] needed. Assessment & Plan (09/01/2024 12:03 PM ETHYLBENZENE CRACKING SUPERVISOR): 44-year-old female with PMHx of HTN, HLD, [...] dosing due to hx GERD. Will contact slipcover cutter for records. Follow up in 2 weeks. Sooner if needed. Seen with Dr. Amador. TONY (obstructive sleep apnea) 10/05/2020 Assessment & Plan (07/01/2024 10:25 AM ETHYLBENZENE CRACKING SUPERVISOR): Patient continue with CPAP at 8 cm water pressure while sleeping. She was intolerable of higher pressures in the past. DME is adapt. Assessment & Plan (06/28/2023 11:59 AM ETHYLBENZENE CRACKING SUPERVISOR): Due to continued symptoms, the patient will continue CPAP at 8 cm water pressure. The patient has an elevated AHI, however she is intolerant of higher pressure. Denied need for supplies. DME adapt Assessment & Plan (06/27/2022 12:02 PM ETHYLBENZENE CRACKING SUPERVISOR): Patient continue to wear CPAP at 8 cm water pressure while sleeping. Her DME is adapt. The patient did not tolerate an increase in her pressures in the past. Assessment & Plan (06/30/2021 11:05 AM ETHYLBENZENE CRACKING SUPERVISOR): Patient continue to wear CPAP at 8 [...] her mouth coming open while sleeping. The [employer] company is [employer]. The patient is benefitting from CPAP therapy. Other insomnia 10/05/2020 Assessment & Plan (07/01/2024 10:25 AM ETHYLBENZENE CRACKING SUPERVISOR): The patient continues with Lunesta 3 mg on most nights. Assessment & Plan (06/28/2023 11:58 AM ETHYLBENZENE CRACKING SUPERVISOR): Due to continued symptoms, the patient will continue Lunesta 3 mg nightly. I have refilled the medication and will refill for 1 year Patient is aware that she should wear her CPAP machine if taking the medication. Assessment & Plan (06/27/2022 12:02 PM ETHYLBENZENE CRACKING SUPERVISOR): The patient will continue with Lunesta 3 mg p.o. at bedtime to treat insomnia. Assessment & Plan (06/30/2021 11:04 AM ETHYLBENZENE CRACKING SUPERVISOR): The patient will continue with Lunesta 3 [...] Description 11/25/2024 11:15 AM CDT Office Visit [facility] [address] [place] [phone] Vicenta Early PA Sicca complex (Primary Dx); Polyarthralgia 09/16/2024 Orders Only [facility] [address] [place] [phone] Vicenta Early PA from Last 3 Months [...] on file Legal Sex Female 9:00 AM ETHYLBENZENE CRACKING SUPERVISOR Gender Identity Female 09/06/2024 3:20 PM ETHYLBENZENE CRACKING SUPERVISOR Sexual Orientation Not on file Obstetrics History Last Filed Vital Signs Vital Sign Reading Time Taken Comments Blood Pressure 128/86 11/25/2024 10:57 AM CDT Pulse 92 11/25/2024 10:57 AM CDT Temperature 36.4 C (97.6 F) 07/01/2024 9:59 AM ETHYLBENZENE CRACKING SUPERVISOR Respiratory Rate 18 07/01/2024 9:59 AM ETHYLBENZENE CRACKING SUPERVISOR Oxygen Saturation 97% 11/25/2024 10:57 AM CDT [...] Comments SCAN - RADIOLOGY/IMAGING 09/16/2024 4:34 PM ETHYLBENZENE CRACKING SUPERVISOR from Last 3 Months Results * SCAN - RADIOLOGY/IMAGING (09/16/2024 4:34 PM ETHYLBENZENE CRACKING SUPERVISOR) Anatomical Region Laterality Modality Other Vicenta LANDA Final Result from Last 3 Months Insurance [facility] [address] [place] [phone] [employer] [facility] [address] [place] [phone] BLUE ACCESS CHOICE OR [facility] Care Teams Computer Engineer Relationship Specialty Start Date End Date Saul Ruelas MD PCP - General Family Medicine 08/25/20 Abiodun Red MD [address] [place] [address] Referring Physician Neurology 11/27/22 Issac Amador MD [address] [place] [address] Consulting Physician Rheumatology 07/23/24
--- OUTSIDE RECORDS SUMMARY | 2024-12-07 09:16 | XMS_ITS | Continuity of Care Document ---
Author Organization [facility] Address [address] [place] [address] Phone Care Team Providers Care Assistant Media Planner Name Role Phone Miguel Harrison PT Unavailable [...] Diagnoses Date Provider Providers Copied on Encounter [facility], [address], [place], [place], [id number], tel:[phone] [facility] No Information Hunter Rivera. . Referring Provider: Eddie Caceres, [address], [address]. tel:[phone] [facility], [address] [place] [address], [place], [id number], tel:[phone] [place] No Information Hunter Abrahamyn. . Referring Provider: Eddie Caceres, [address], [address]. tel:[phone] [facility] [address] [place] [address], [id number], tel:[phone] [place] No Information Hunter Abrahamyn. . Referring Provider: Eddie Caceres, [address] [place] [address], [address]. tel:[phone] [facility] [address] [place] [address], [id number], tel:[phone] [place] No Information Hunter Abrahamyn. . Referring Provider: Eddie Caceres, [address], [address]. tel:[phone] [facility] [address] [place] [address], [id number], tel:[phone] [place] No Information Hunter Abrahamyn. . Referring Provider: Eddie Caceres, [address], [address]. tel:[phone] [facility] [address] [place] [address], [id number], tel:[phone] [place] No Information Hunter Abrahamyn. . Referring Provider: Eddie Caceres, [address], [address]. tel:[phone] Family History Family Member Type Diagnosis Age [...]
[2024-12-07] MEDS: KETOROLAC 30 MG/ML VIAL (*BKC) IM (09:57)
[2024-12-07] MEDS: CYCLOBENZAPRINE HCL 10 MG TABLET PO (09:57)
[2024-12-07 09:58] VITALS: BP 112/74; PULSE 73; RESP 16; O2SAT 100
[2024-12-07 10:45] VITALS: BP 110/70; PULSE 70; RESP 16; O2SAT 97
== END 2024-12-07 11:04 | disposition home or self-care (01) ==
PROVIDERS: Emergency Provider Emergency Medicine
DX: S92.352A Displaced fracture of fifth metatarsal bone, left foot, initial encounter for closed fracture (principal); X58.XXXA Exposure to other specified factors, initial encounter
CPT/HCPCS: 29515; 73630; 96372; 99284; A9270; J1885

== ENCOUNTER 2025-01-26 11:18 | Outpatient (CLI) | payer BC, OTHER, SELFPAY ==
--- NOTE | ~2025-01-26 | XR_ITS ---
Lumbosacral Spine: AP and lateral views Clinical History: Pain Findings: The normal lordotic curve is maintained. No fracture seen. There is minimal grade 1 retroli sthesis of L2 over L3. There is advanced degenerative disc narrowing at L4-L5. There is advanced dege nerative disc narrowing at L2-L3. There is extensive facet arthropathy throughout the lumbar spine. T he sacroiliac joints are normally outlined. Impression: Moderate to advanced degenerative spondylosis. Minimal grade 1 retrolisthesis of L2 over L3. Reviewed, dictated and finalized at location M. Impression: Moderate to advanced degenerative spondylosis. Minimal grade 1 retrolisthesis of L2 over L3.
== END 2025-01-26 11:19 | disposition home or self-care (01) ==
LOC: MICIMG 11:19
PROVIDERS: PCP Physician Assistant; Visit Provider Physician Assistant
DX: M47.816 Spondylosis without myelopathy or radiculopathy, lumbar region (principal); M43.16 Spondylolisthesis, lumbar region
CPT/HCPCS: 72110

== ENCOUNTER 2025-02-06 10:47 | Emergency (ER) | payer BC, OTHER, SELFPAY ==
--- NOTE | ~2025-02-06 | XR_ITS ---
XR chest 2V 02/06/2025 11:28 Indication: Chest tightness, chills and cough Procedure: 2 view chest Comparison: No prior studies for comparison. Findings: Right perihilar airspace disease, compatible with pneumonia. Mildly elevated right diaphrag m. No pleural effusion or pneumothorax. Impression: 1: Right perihilar pneumonia. Reviewed, dictated and finalized at location A. Impression: 1: Right perihilar pneumonia.
--- OUTSIDE RECORDS SUMMARY | 2025-02-06 10:52 | XMS_ITS | Data Portability ---
Author Organization [place] [facility] OFFICE Address [address] [place] [address] Care Team Providers Care Financial Accounting Manager Name Role Phone [facility] Primary Care Provider Assessment Encounter Date Assessment Date Assessment LastModified by Organization Details LastModified Time 02/06/2023 02/06/2023 This document was scribed by FARAZ Hayes [email or web address] Not available 02/06/2023 18:34:10 06/04/2023 06/04/2023 Patient [...] Orders Zetia 10 mg tablet 2022 023 [facility], [address] [place] [address], [id number], 10:27:07 Lipitor 80 mg tablet 2022 023 [id number], [address], [place], [id number], 3 10:27:11 Bystolic 5 mg tablet 2022 023 [facility], [address] [place] [address], [address], 10:27:08 Lasix 40 mg tablet 2022 023 [facility], [address] [place] [address], [id number], 3 10:27:08 Lasix 20 mg tablet 2022 023 [id number], [address], [place], [id number], 18:37:03 Patient TargetsNo targets recorded. Patient Instructions Encounter Date Encounter Id Patient Instructions Last Modified By Organization Details Last Modified Time 06/04/2023 [id number] Low cholesterol diet advised Low sodium diet advised. [email or web address] Not available 06/04/2023 10:26:59 12/06/2023 [id number] Low cholesterol diet advised Low sodium diet advised. eyassin Not available 12/06/2023 10:38:58 Reason for Referral None Reported. Results Created Date Observation Date Name Description Value Unit Range Abnormal Flag Note LastModifiedBy Organization Detail LastModifiedTime 02/08/2002/06/2023 elect julianne diogr am No observ ation record ed. [email or web address] Not Available 2022 11:05:46 05/03/2003/24/2023 fabby can cardi olite stres s test (PROC ) No observ ation record ed. [email or web address] Not Available 2022 14:51:42 07/27/19 24 07/23/2023 , echo ardio gram No observ ation record ed. [facility] [address], [place], [address], 08/05/2023 14:55:01 12/11/19 24 12/06/2023 elect julianne diogr am No observ ation record ed. [email or web address] Not Available 2023 18:13:40 11/19/20 24 06/03/2024 ashwin lozagr am No observ ation record ed. [email or web address] Not Available 2023 18:04:05 Result Notes None recorded. Problems Name Problem SNOMED Code Status Onset Date Resolution Date Notes Provider Name and Address Organization Details Recorded Time Edema 678162110 Active 2022 Cooper Mesto null[place] [facility] 3 12:39:45 Atypical chest pain 044652498 Active 2022 Cooper Mesto null, [place] [facility] 3 12:39:54 Dyspnea on exertion 31902543 Active 2022 Cooper Mesto null, [facility] 3 12:40:00 Dyslipidemia 687351694 Active 2023 Cooper Eveliato null[place] [facility] 4 19:58:53 Essential hypertension 80986362 [facility] 4 19:59:11 History of cerebrovascula r accident 258571491 Active 2023 [facility], [place] [facility] 4 19:59:27 Problem Notes None recorded. Procedures Surgical History Date Name Laterality Status Provider Name and Address Organization Details Recorded Time operation on stomach completed Cooper Messally [facility] [place] 05/25/2023 12:52:55 Imaging Results None recorded. Procedure [...] Not Available No t Available atorvastati n 80 mg tablet TAKE 1 TABLET BY MOUTH [...] completed Not Available Not Available Not Available fosfomycin tromethamin e 3 gram oral packet MIX WITH 3-4 OZ OF COOL WATER AND DRINK FOR 1 DOSE active Not Available Not Available No t Available fluconazole 150 mg tablet TAKE 1 TABLET BY MOUTH DAILY active Not Available Not Available No t Available sumatriptan 100 mg tablet TAKE 1 TABLET BY MOUTH TWICE DAILY NEEDED FOR MIGRAINE. TAKE 1 TABLET BY MOUTH AT ONSET AND 1 TABLET 2 HOURS LATER. MAX OF 2 TABLETS IN 24 HOURS active Not Available Not Available No t Available prochlorper azine maleate 5 mg tablet active Not Available Not Available No t Available meloxicam 15 mg tablet TAKE 1 TABLET [...] Not Available Not Available No t Available sulfamethox azole 800 mg-trimetho prim 160 mg tablet TAKE 1 TABLET BY MOUTH EVERY 12 HOURS FOR 5 DAYS active Not Available Not Available No [...] DAILY UNTIL CLEAR. THEN USE NEEDED FOR FLARES active Not Available Not Available No t Available lidocaine 5 % topical patch APPLY 1 PATCH TO THE AFFECTED AREA DIRECTED. NO LONGER THAN 12 HOURS PER DAY active Not Available Not Available No t Available omeprazole 20 mg capsule,del ayed release TAKE 1 CAPSULE BY MOUTH EVERY DAY active Not Available Not Available No t Available mupirocin 2 % topical ointment APPLY IN NOSE ROTATION WITH TACROLIMU S FOR NO MORE THAN 2 WEEKS AT A TIME. TAKE A FEW DAYS BEFORE RESUMING FOR FLARES. active Not Available Not Available No t Available zolpidem 5 mg tablet active Not Available Not Available No t Available furosemide 20 mg tablet TAKE 1 TABLET BY MOUTH EVERY DAY active Not Available Not Available No t Available clobetasol 0.05 % topical ointment APPLY TOPICALLY TO HANDS 1-2 TIMES DAILY IN ROTATION WITH MUPIROCIN FOR MORE THAN 2 WEEKS AT A TIME active Not Available Not Available No t Available hydroxychlo roquine 200 mg tablet TAKE 1 TABLET BY MOUTH DAILY active Not Available Not Available No t Available zolpidem 10 mg tablet TAKE 1 TABLET BY MOUTH EVERY DAY AT BEDTIME NEEDED FOR SLEEP active Not Available Not Available No t Available methylpredn isolone 4 mg tablets in a dose pack FOLLOW PACKAGE DIRECTION S 06/02 completed Not Available Not Available Not Available ondansetron 4 mg disintegrat ing tablet DISSOLVE 1 TABLET ON THE TONGUE EVERY 8 HOURS NEEDED FOR NAUSEA OR VOMITING active Not Available Not Available No t Available amoxicillin 875 mg-potassiu m clavulanate 125 mg tablet 06/03 completed Not Available Not Available Not Available buspirone 15 mg tablet TAKE 1 TABLET BY MOUTH THREE TIMES DAILY active Not Available Not Available No t Available oxycodone 5 mg tablet TAKE 1 TABLET BY MOUTH EVERY 6 HOURS NEEDED FOR PAIN active Not Available Not [...] 2 mg sublingual film DISSOLVE 1 FILM UNDER THE TONGUE THREE TIMES DAILY active Not Available Not [...] Not Available Not Available No t Available Zepbound 2.5 mg/0.5 mL subcutaneou s pen injector INJECT 2.5 ML UNDER THE SKIN ONCE A WEEK DIRECTED active Not Available Not Available No t Available Vitals Date Recorded Body height Body mass index (BMI) Body weight Heart rate Oxygen saturation Oxygen saturation in Arterial blood by Pulse oximetry Systolic And Diastolic Provider Name and Address Organization Details Last Updated DateTime 4 177.8 cm 41.1 kg/m2 340603. 93 g 76 /min 97 % 97 % 108/72 mm[Hg] Kady Ambrocio [facility] 4 10:18:10 Date Recorded Body height Body mass index (BMI) Body weight Heart rate Respiratory rate Oxygen saturation Oxygen saturation in Arterial blood by Pulse oximetry Provider Name and Address Organization Details Last Updated DateTime 3 177.8 cm 45.6 kg/m2 749657. 37 g 102 /min 18 /min 93 % 93 % Zen Roche [facility] 3 18:10:41 Date Recorded Body height Body mass index (BMI) Body weight Heart rate Oxygen saturation Oxygen saturation in Arterial blood by Pulse oximetry Systolic And Diastolic Provider Name and Address Organization Details Last Updated DateTime 4 177.8 cm 40.3 kg/m2 034481. 46 g 107 /min 95 % 95 % 151/97 mm[Hg] Fay Carrero [facility] 4 11:41:36 Date Recorded Body height Heart rate Oxygen saturation Oxygen saturation in Arterial blood by Pulse oximetry Body mass index (BMI) Body weight Systolic And Diastolic Provider Name and Address Organization Details Last Updated DateTime 3 177.8 cm 84 /min 87 % 87 % 42.9 kg/m2 205515. 12 g 139/86 mm[Hg] Fay Carrero [facility] 3 09:40:23 Social History None recorded. Functional Status None recorded. Mental Status None recorded. Family History Nothing Reported. Medical History No medical history recorded. Gynecological HistoryNo gynecological history recorded. Obstetrics History GPAL:G 0 P 0 0 0 0 Past Encounters Encounter ID Performer Location Encounter Start Date Encounter Closed Date Diagnosis/Indication Diagnosis SNOMED-CT Code Diagnosis ICD10 Code Diagnosis Note [id number] Sixto Feldman MD [place] [facility] [place] [address] 02/06/2023 17:16:06 02/06/2023 18:36:32 Edema 484243003 R60.9 will start lasix 20 mg dailywe might consider jardiance in the future Atypical chest pain 1025 54004 R07.89 Treadmill Myoview Stress test, has high Stryker Risk score. Has Known CAD, or CAD risk equivalent . To look for any ischemia. Dyspnea on exertion 6084 5006 R06.09 will do echo to the see the structure of the heart [id number] Sixto Feldman MD [place] [facility] [place] [address] 06/04/2023 09:27:03 06/04/2023 10:31:41 Edema 640774900 R60.9 continue lasix 40 mg dailywe might consider jardiance in the future Dyspnea on exertion 6084 5006 R06.09 will do echo to the see the structure of the heart Atypical chest pain 1025 50023 R07.89 negative stress test 3contin ue with monitoring continue with baby aspirin Dyslipidemia 990639426 E 78.5 *Last LDL was 107 done on 03/29/23.P t takes lipitor 80 mg daily.will start her on zetia 10 mg dailyTG Is 223 done 03/2023 add fish oil BID daily Essential hypertension 27579947 I10 BP mildly elevated today, she will bring number with her next timecontin ue with bystolic 5 mg daily History of cerebrovascular accident 991650704 Z86.73 continue with aspirin [id number] Sixto Feldman MD [place] [facility] [address] [place] [address] 12/06/2023 10:00:34 12/06/2023 10:41:39 Edema 084024918 R60.9 continue lasix 40 mg daily Dyslipidemia 781156826 E 78.5 *Last LDL was 107 done on 03/29/23.P t takes lipitor 80 mg daily.cont inue with zetia 10 mg dailyTG Is 223 done 03/2023 continue fish oil BID dailyrepea t lipid panel Essential hypertension 16140624 I10 BP is well controlled continue with bystolic 5 mg daily History of cerebrovascular accident 212482098 Z86.73 continue with aspirin [id number] Sixto Feldman MD [place] [facility] [address] [place] [address] 06/03/2024 11:18:39 06/03/2024 12:28:23 Edema 886274018 R60.9 continue lasix 40 mg daily Dyslipidemia 609879485 E 78.5 *Last LDL was 107 done on 03/29/23.P t takes lipitor 80 mg daily.cont inue with zetia 10 mg dailyTG Is 223 done 03/2023 continue fish oil BID dailyrepea t lipid panel Essential hypertension 62411853 I10 BP is well controlled continue with bystolic 5 mg daily History of cerebrovascular accident 608845559 Z86.73 continue with aspirin Health Concerns Section Related Observation LastModified by Organization Detai ls LastModified Time None Recorded Concern Status LastModified by Organization Details LastModified Time None Recorded Advance Directives Directive None Recorded Payers Insurance Date Sequence Insurance Name Policy Number Policy Wilks Covered Member ID Wilks Member ID Guarantor Name 06/03/2024 2 [facility] () Holly Black [id number] Holly Black 01/29/2025 1 [employer] [id number] Damir Black [id number] Holly Black Notes Date Note Type Note Provider Name and Address Organization Details Recorded Time 02/06/2023 text/html 02/07/23CC: Lower exremity edemaHolly BLACK is 42 years-old Female [...] .Pt takes. Sixto Feldman MD [address] [place], [address], [facility] 02/06/2023 18:37:01 06/04/2023 text/html 05/31/23CC : Cardiac follow up dyspnea on exertionHolly BLACK is [...] 0.70 BUN 11 GL 93 CA 9.7,CK Total-159,IDWO8L-1.3,L IPID-CHOL 187 HDL 42 LDL 107 TRIG 223 *Had Adequate Stress with Lexiscan on 03/24/23 with Normal LV systolic function. LVEF: 60%. Previously:Last visit came for cardiac evaluation due to Edema. She occasional with chest pain and dyspnea on exertion. [facility] 06/04/2023 10:27:10 12/06/2023 text/html 12/06/23CC : Cardiac follow up chest Anna BLACK is 43 years-old Female with h/o [...] 0.70 BUN 11 GL 93 CA 9.7,CK Total-159,ITDH0I-7.3,L IPID-CHOL 187 HDL 42 LDL 107 TRIG [...] systolic function. LVEF: 60%. Sixto Feldman MD [address] [place], [address], [facility] 06/03/2024 12:24:17 OBGyn Episode No OBEpisode recorded.
--- OUTSIDE RECORDS SUMMARY | 2025-02-06 10:52 | XMS_ITS | Encounter Summary ---
Author Organization [facility] Address [address] [place] [address] Care Team Providers Care [employer] Consultant Name Role Phone Unavailable Primary Care Provider Unavailabl e Encounter Details Date Type Department Care Team (Late st Contact Info) Description 03/02/2022 Lab Requisition [facility] DermPath Lab [address] [place] [address] Niles George MD [address] [place] [address] Social History Tobacco Use Types Packs/Day Years [...] AM CDT) Case Report Dermatopathology Report Case: [id number] Authorizing Provider: Niles George MD Collected: 03/02/2022 12:00 AM Ordering Location: [facility] Care DermPath Lab Received: 03/02/2022 05:15 [...] characteristic determined by the Dermatopathology Laboratory at [facility], directed by Dr. Miguel Viramontes. These tests need not be, and therefore are not, approved by the [place] Food and Drug Administration. The tests are used for clinical purposes. Billing Codes Specimen Charges Stain Charges 14994 1 2 6:16 PM CDT DERMATOPATHOLOGY LABORATORY Embedded Images 2 6:16 PM CDT DERMATOPATHOLOGY LABORATORY Pathology/Cytolog y TISSUE SPECIMEN FROM SKIN / Unknown 03/02/2022 03/02/2022 5:15 PM CDT us Niles George MD LAB - PATHOLOGY/CYTOLOGY ORDERAB LES Final Result DERMATOPATHOLOGY LABORATORY [facility] - Department of Dermatology [address] [phone] documented in this encounter Visit Diagnoses Not on filedocumented in this encounter
--- OUTSIDE RECORDS SUMMARY | 2025-02-06 10:52 | XMS_ITS | Clinical Summary ---
Author Organization [facility] Address [address] [place] [address] Care Team Providers Care Director Of Epidemiology Name Role Phone Unavailable Primary Care Provider Unavailabl e Source Comments [facility],non-owned Affiliates and Associated Physician Practices is amultiple site organization consisting of ambulatory clinics and hospital sitesin [place], [place], [place] and [place]. This disclosure is being madepursuant to the Care Everywhere program and may not contain all information available regarding this patient. Last updated 18.[facility] [employer] Social History Tobacco Use Types Packs/Day Years [...] Done Comments LIPID TESTING 1980 MAMMOGRAM 1980 HIV SCREENING 1995 HEPATITIS C SCREENING 05/13/1998 DTAP/TDAP/TD VACCINES (1 - Tdap) 1999 HEPATITIS B VACCINE (1 of 3 - 19+ 3-dose series) 1999 PAP SMEAR 2001 HPV VACCINE (1 - 3-dose SCDM series) 2007 COVID-19 VACCINE (3 - 2023-2 5 season) 2024 10/21/2020, 09/28/2020 DEPRESSION SCREENING 07/16/2024 10/10/2022 INFLUENZA VACCINE (#1) 2025 ZOSTER VACCINE (1 of 2) 2030 [...] age to complete this topic Insurance [facility] Address: [facility] [address] [place] [address] [facility] SELF PAY NO INSURANCE Member Subscriber Plan / Payer (Ef fective for All Dates) Name:Holly Black Member ID:Not on file Relation to Subscriber:Not on file Subscriber ID:Not on file Payer ID:Not on file Group ID:Not on file Type:Self Pay Address: [facility] SELF PAY NO INSURANCE Member Subscriber Plan / Payer (Ef fective for All Dates) Name:Holly Black Member ID:Not on file Relation to Subscriber:Not on file Subscriber ID:Not on file Payer ID:Not on file Group ID:Not on file Type:Self Pay Address: [facility] SELF PAY NO INSURANCE Member Subscriber Plan / Payer (Ef fective for All Dates) Name:Holly Black Member ID:Not on file Relation to Subscriber:Not on file Subscriber ID:Not on file Payer ID:Not on file Group ID:Not on file Type:Self Pay Address: [place], [place]
--- OUTSIDE RECORDS SUMMARY | 2025-02-06 10:53 | XMS_ITS | Clinical Summary ---
Author Organization [facility] Care Team Providers Care Slubber Runner Name Role Phone Unavailable Primary Care Provider [...]
--- OUTSIDE RECORDS SUMMARY | 2025-02-06 10:53 | XMS_ITS | Patient Health Record ---
Author Organization [facility] Address [address] [place], [place] [id number] Care Team Providers Care Manuscript Editor Name Role Phone KENYON HARRIS Unavailable [phone] Darci Woody Unavailable Unavailable Allergies Allergen (clinical drug ingredient) Drug/Non Drug Allergy documented on EMR Reaction Allergy Type Onset Date Status lorazepam Lorazepam other Drug Allergy Active oxycodone Oxycodone other Drug Allergy Active zolpidem Zolpidem other Drug Allergy Active Reason For Referral Reason [facility] ( S URGERY ) [address] / [facility] / [facility]. KLL Diagnosis 1 Tailor's bunion of r ight foot (M21.621) Referred Organization [facility] Referred Provider KENYON HARRIS Referred Address [address],[place], [place],[id number], Referred Provider Specialty Podiatry Referral Priority Routine Reason [facility] REQ [facility] ( APPOINTMENT: 01/22/2025 ) Diagnosis 1 Pain in right foot ( M79.671) Diagnosis 2 Left foot pain (M79. 672) Referral Organization [facility] Referring Provider First Name KENYON Referring Provider Last Name STEVEN Referring Provider Speciality Podiatry Referred Provider Darci Woody Referred Provider Specialty General Prac cristel Referral Priority Routine Medications Medication SIG (Take, [...] EVERY DAY Oral; Duration: 90 Days Active Immunizations Vaccine Route Administration Date Status Comme nts HPV (human papillomavirus), quadrivalent, 3 dose schedule Unknown 07/11/2006 Administered HPV (human papillomavirus), quadrivalent, 3 dose schedule Unknown 07/11/2006 Administered HPV (human papillomavirus), quadrivalent, 3 dose schedule Unknown 09/14/2006 Administered HPV (human papillomavirus), quadrivalent, 3 dose schedule Unknown 09/14/2006 Administered HPV (human papillomavirus), quadrivalent, 3 dose schedule Unknown 01/21/2007 Administered HPV (human papillomavirus), quadrivalent, 3 dose schedule Unknown 01/21/2007 Administered Influenza (split), 3 yrs and above [...] free, 6-35 months Unknown 05/19/2009 Administered Influenza (whole) Unknown 05/29/2002 Administered Influenza (whole) Unknown 05/29/2002 Administered Influenza (whole) Unknown 07/11/2006 Administered Influenza (whole) Unknown 07/11/2006 Administered Influenza virus vaccine, quadrivalent, live (LAIV4), for intranasal use Unknown 05/07/2013 Administered Influenza virus vaccine, quadrivalent, live (LAIV4), for intranasal use Unknown 05/07/2013 Administered Influenza virus vaccine, quadrivalent, live (LAIV4), for intranasal use Unknown 05/05/2014 Administered Influenza virus vaccine, quadrivalent, live (LAIV4), for intranasal use Unknown 05/05/2014 Administered Influenza virus vaccine, quadrivalent, live (LAIV4), for intranasal use Unknown 05/03/2015 Administered Influenza virus vaccine, quadrivalent, live (LAIV4), for intranasal use Unknown 05/03/2015 Administered Influenza, quadrivalent, spl it, preservative free, [...] years or older Unknown 06/04/2020 Administered Influenza, seasonal, injecta ble, preservative free, 6-35 months Unknown 04/21/2011 Administered Influenza, seasonal, injecta ble, preservative free, 6-35 months Unknown 04/21/2011 Administered Influenza, unspecified formulation Unknown 06/04/2020 A dministered Influenza, unspecified formulation Unknown 06/04/2020 A dministered Mohawk encephalitis Unknown 05/05/2019 Administered Mohawk encephalitis Unknown 05/05/2019 Administered MMR Unknown 05/28/2009 Administered MMR Unknown 05/28/2009 Administered MMR Unknown 05/05/2019 Administered MMR Unknown 05/05/2019 Administered Novel [id number] Unknown 05/19/2009 Administered Novel [id number] Unknown 05/19/2009 Administered Pfizer-Biontech Covid-19 Vac cine 1st dose [...] Vac cine 1st dose Unknown 10/21/2020 Administered Td (adult), adsorbed Unknown 04/21/2002 Administered Td (adult), adsorbed Unknown 04/21/2002 Administered Td (adult), adsorbed Unknown 03/04/2018 Administered Td (adult), adsorbed Unknown 03/04/2018 Administered Tdap Unknown 05/28/2012 Administered Tdap Unknown 05/28/2012 Administered Varicella Unknown 05/28/2009 Administered Varicella Unknown 05/28/2009 Administered Varicella Unknown 07/27/2009 Administered Varicella Unknown 07/27/2009 Administered Vital Signs Height-cm 177.80 cm 02/05/2025 Weight-kg 113.4 kg 02/05/2025 Height 70.00 in 02/05/2025 Weight 250 lbs 02/05/2025 BMI 35.87 kg/m2 02/05/2025 Encounters Encounter Location Date Provider [address] [place] [id number] 10/23/2024 KENYON HARRIS [facility] [place] [address] [place] [id number] 12/25/2024 KENYON HARRIS Nondisplaced fracture of fifth metatarsal bone, left foot, initial encounter for closed fracture S92.355A ; Tendinitis of right foot M77.51 ; Pain in right foot M79.671 and Left foot pain M79.672 [facility] [place] [address] [place] [id number] 01/22/2025 KENYON HARRIS Tendinitis of right foot M77.51 ; Nondisplaced fracture of fifth metatarsal bone, left foot, subsequent encounter for fracture with routine healing S92.355D ; Pain in right foot M79.671 and Left foot pain M79.672 [facility] [place] [address] [place] [id number] 02/05/2025 KENYON HARRIS Tendinitis of right foot M77.51 ; Nondisplaced fracture of fifth metatarsal bone, left foot, subsequent encounter for fracture with routine healing S92.355D ; Pain in right foot M79.671 and Left foot pain M79.672 [facility] [place] [facility] [address] [place] [id number] 04/24/2024 KENYONRACH GALEMIHIR Tailor's bunion of right foot M21.621 ; Bunionette of left foot M21.622 and Pain in right foot M79.671 [facility] [place] [facility] [address] [place] [id number] 05/22/2024 KENYON SHAHLAMIHIR Tailor's bunion of right foot M21.621 ; Bunionette of left foot M21.622 ; Pain in right foot M79.671 and Left foot pain M79.672 [facility] [place] [address] [place] [id number] 06/26/2024 KENYON SHAHLAMIHIR Tailor's bunion of right foot M21.621 ; Bunionette of left foot M21.622 ; Pain in right foot M79.671 and Left foot pain M79.672 [facility] [place] [address] [place] [id number] 07/24/2024 KENYONRACH HARRIS Tailor's bunion of right foot M21.621 ; Bunionette of left foot M21.622 ; Pain in right foot M79.671 and Left foot pain M79.672 [facility] [place] [facility] [address] [place] [id number] 08/14/2024 KENYON SHAHLAMIHIR Tailor's bunion of right foot M21.621 and Pain in right foot M79.671 [facility] [place] [facility] [address] [place] [id number] 10/30/2024 KENYONRACH GALEMIHIR Tailor's bunion of right foot M21.621 ; Neoplasm of unspecified behavior of bone, soft tissue, and skin D49.2 ; Encounter for other specified surgical aftercare Z48.89 and Pain in right foot M79.671 [facility] [place] [facility] [address] [place], [place] [id number] 11/06/2024 KENYON STEVEN Tailor's bunion of right foot M21.621 ; Neoplasm of unspecified behavior of bone, soft tissue, and skin D49.2 and Encounter for other specified surgical aftercare Z48.89 [facility] [place] [address] [place], [place] [id number] 12/04/2024 KENYON STEVEN Tailor's bunionette, left M21.622 and Left foot pain M79.672 [facility] [place] [address] [place], [place] [id number] 10/24/2024 KENYON HARRIS [facility] [place] [address] [place], [place] [phone] 10/01/2024 KENYON HARRIS Assessments Encounter Date Diagnosis [...] bunion of right foot (ICD-10 - M21.621) 12/04/2024 Left foot pain (ICD-10 - M79.672) 12/04/2024 Tailor's bunionette, left (ICD-10 - M21.622) 12/25/2024 Nondisplaced fracture of fifth metatarsal bone, left foot, initial encounter for closed fracture (ICD-10 - S92.355A) 12/25/2024 Tendinitis of right foot (ICD-10 - M77.51) 01/22/2025 Nondisplaced fracture of fifth metatarsal bone, left foot, subsequent encounter for fracture with routine healing (ICD-10 - S92.355D) 01/22/2025 Tendinitis of right foot (ICD-10 - M77.51) 02/05/2025 Tendinitis of right foot (ICD-10 - M77.51) 02/05/2025 Nondisplaced fracture of fifth metatarsal bone, left foot, subsequent encounter for fracture with routine healing (ICD-10 - S92.355D) 01/22/2025 Pain in right foot (ICD-10 - M79.671) 12/25/2024 Pain in right foot (ICD-10 - M79.671) 11/06/2024 Encounter for other specified surgical aftercare [...] Pain in right foot (ICD-10 - M79.671) 12/25/2024 Left foot pain (ICD-10 - M79.672) 02/05/2025 Pain in right foot (ICD-10 - M79.671) 01/22/2025 Left foot pain (ICD-10 - M79.672) 07/24/2024 Left foot pain (ICD-10 - M79.672) 06/26/2024 Left foot pain (ICD-10 - M79.672) 02/05/2025 Left foot pain (ICD-10 - M79.672) 12/25/2024 Other Continue cam walker. 01/22/2025 Other Continue cam walker. 02/05/2025 Other Continue cam walker. 08/14/2024 Other Patient with check with his [...] may return to normal shoes as tolerated. 12/04/2024 Other Following skin prep, a total of 3 ccs of a 1-1-1 mix of 0.5% marcaine plain, Kenalog, and dexamethasone sodium phosphate was injected into the patients left 5th MTH Plan Of Treatment Next Appt Details Provider Name:KENYON SPIVEY, 02/19/2025 08:40:00 AM, [address], [place], [place], [phone], Insurance Providers Payer Name Payer Address Payer Phone Subscriber Number Group Number Insured Name Patient Relationship to Insured Coverage Start Date Coverage End Date [facility] ([facility]) ATTN CLAIMS [address] [place] [address] [id number] ANGELICA BLACK Self - patient is the insured [facility] [address] [place] [address] [id number] GISSEL BLACK Spouse - patient is the spouse of the insured Medical (General) History Medical History History ICD Code anxiety high blood pressure insomnia
--- OUTSIDE RECORDS SUMMARY | 2025-02-06 10:53 | XMS_ITS ---
Author Organization [facility] Address [address] [place], [place] [phone] Care Team Providers Care Internet Developer Name Role Phone KENYON FORREST Unavailable [phone] Darci Woody Unavailable Unavailable Allergies Allergen (clinical drug ingredient) Drug/Non Drug Allergy documented on EMR Reaction Allergy Type Onset Date Status lorazepam Lorazepam other Drug Allergy Active oxycodone Oxycodone other Drug Allergy Active zolpidem Zolpidem other Drug Allergy Active REASON FOR VISIT SX foot really hurting and broke other foot Medications Medication SIG (Take, Route, Frequency, Duration) Notes Start Date End Date Status Atorvastatin Calcium 80 MG TAKE 1 TABLET BY MOUTH EVERY DAY Oral; Duration: 90 Days Active Aimovig 70 MG/ML ADMINISTER 1 ML UNDE R THE SKIN EVERY 30 DAYS Subcutaneous; Duration: 30 Days Active Levothyroxine Sodium 137 MCG Oral; Duration: 90 Days Active Atorvastatin Calcium 80 MG Oral; Duration: 90 Days Active Meloxicam 7.5 MG Oral; Duration: 30 Days Active Vital Signs Height 70.00 in 12/25/2024 Weight 250 lbs 12/25/2024 BMI 35.87 kg/m2 12/25/2024 Height-cm 177.80 cm 12/25/2024 Weight-kg 113.4 kg 12/25/2024 Encounters Encounter Location Date Provider Diagnosis [facility] [place] [address] [place], [place] [phone] 12/25/2024 KENYON FORREST Nondisplaced fracture of fifth metatarsal bone, left foot, initial encounter for closed fracture S92.355A ; Tendinitis of right foot M77.51 ; Pain in right foot M79.671 and Left foot pain M79.672 Assessments Encounter Date Diagnosis (ICD Code) Assessment Notes Treatment Notes Treatment Clinical Notes Section Notes 12/25/2024 Nondisplaced fracture of fifth metatarsal bone, left foot, initial encounter for closed fracture (ICD-10 - S92.355A) 12/25/2024 Tendinitis of right foot (ICD-10 - M77.51) 12/25/2024 Pain in right foot (ICD-10 - M79.671) 12/25/2024 Left foot pain (ICD-10 - M79.672) 12/25/2024 Other Continue cam walker. Plan Of Treatment Treatment Notes Assessment Notes Other Continue cam walker. Next Appt Details Provider Name:KENYON SPIVEY, 02/19/2025 08:40:00 AM, [address], [facility], [place], [place], [phone], Progress Notes * ANGELICA BLACK LDOB: 0 (44 yo F)Acc No.[id number]:12/25/2024 Patient: Michael ANGELICA VIDALES Provider: Kan Forrest DPM :1980 A ge:44 Y S ex:Female Date:12/25/2024 Address:[address] [facility] [id number] Subjective: * Chief Complaints: * 1 . SX foot really hurting and broke other foot. * HPI: H PI: New Complaint E stablished patient presents with a new complaint. Patient complains of an issue to her left foot. She states she was getting into bed and felt a pop. She went the next morning to [facility] and had x-rays done. They showed a fracture of her 5th metatarsal. She followed up with her ortho doctor and was put in a boot and told to stay off her foot. She states it has been very painful, and she is also having pain up her leg. Patient was injured at home. Duration of problem is 2 weeks. MA: robert. [facility] on her right foot in September. Patient states their problem is unchanged. She states her foot is still hurting pretty bad. MA: sea. * Medical History: A nxiety, [...] 5th metatarsal base. The fracture is non-displaced . RIGHT FOOT 3 views of the foot were obtained: There is no evidence of fracture, dislocation, or other osseous lesions. . Assessment: * Assessment: 1. N ondisplaced fracture of fifth metatarsal bone, left foot, initial encounter for closed fracture - S92.355A (Primary) 2 . T endinitis of right foot - M77.51 ?3. P ain in right foot - M79.671 4 . L eft foot pain - M79.672 Plan: * Treatment: * Procedure Codes: 7 3630 X-RAY EXAM OF FOOT, Modifiers: RT , 66979 X-RAY EXAM OF FOOT, Modifiers: LT * Billing Information: * Visit Code: 73332 Office Visit, Est Pt., Level 3. * Procedure Codes: 02633 X-RAY EXAM OF FOOT. Modifiers: RT 73012 X-RAY EXAM OF FOOT. Modifiers: LT * Electronic signature of KENYON FORREST DPM on 02/06/2025 at 10:53 AM CDT Sign off status: Pending * Provider: Kan Forrest DPM Date: 0 12/25/2024 Generated for Dalia grace/Valeri/Ashwiniitting on: 0 02/06/2025 10:53 AM CDT History and Physical Notes * HPI (History of Present Illness) Category Sub-Category Detail Notes Category Not es HPI New Complaint Established rachid ent presents with a new complaint. Patient complains of an issue to her left foot. She states she was getting into bed and felt a pop. She went the next morning to [facility] and had x-rays done. They showed a fracture of her 5th metatarsal. She followed up with her ortho doctor and was put in a boot and told to stay off her foot. She states it has been very painful, and she is also having pain up her leg. Patient was injured at home. Duration of problem is 2 weeks. ELIO: robert Follow Up Visit Patient presents for follow-up visit for surgery on her right foot in September. Patient states their problem is unchanged. She states her foot is still hurting pretty bad. ELIO: robert Examination Category Sub-Category Detail Notes Category Not es X-Ray LEFT FOOT Three views of t he foot were obtained: Fracture noted at the 5th metatarsal base. The fracture is non-displaced RIGHT FOOT 3 views of the foot were obtained: There is no evidence of fracture, dislocation, or other osseous lesions. 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
--- OUTSIDE RECORDS SUMMARY | 2025-02-06 10:53 | XMS_ITS | Data Portability ---
Author Organization [facility], [facility] Address [address] [address] Assessment Encounter Date Assessment Date Assessment LastModified [...] unlisted lab - full panel 2019 [facility], [address], [address], [place], [address], 0 16:13:19 Referral None recorded. Procedures nerve conductio n study/EMG , upper extremity (PROC) - bilateral upper extremity EMG 2019 [facility], [address], [address], [place], [address], 0 19:22:09 lumbar radiofreq uency lesioning (PROC) - RFA of Left L3,L4,L5 w/ IV sedation to be done by Dr. Marr at [facility] 2019 [email or web address] Jorge Alberto Marr MD, [address], [address], [place], [address], 0 17:40:34 Surgeries None recorded. Imaging None recorded. Medication Orders Suboxone 8 mg-2 mg sublingua l film 2019 INTERFACE [facility], Formerly [facility] [employer] [address], [address], 0 18:36:27 Suboxone 8 mg-2 mg sublingua l film 2019 INTERFACE [facility], [facility] [address], [place], [address], 0 18:36:12 Suboxone 8 mg-2 mg sublingua l film 2019 INTERFACE [facility], [facility] [address], [place], [address], 0 18:36:22 lidocaine 5 % topical patch 2019 020 INTERFACE [facility], [id number] [place] [address] 10, [place], [address], 0 18:36:17 Suboxone 8 mg-2 mg sublingua l film 2019 020 INTERFACE [facility], [address] [place] [address] 10, [place], [address], 0 14:35:52 Suboxone 8 mg-2 mg sublingua l film 2019 020 INTERFACE [facility], [address] [place] [address] 10, [place], [address], 0 15:16:01 Suboxone 8 mg-2 mg sublingua l film 2019 020 [email or web address] Not available 0 16:53:01 Patient TargetsNo targets recorded. Patient Instructions Encounter Date Encounter Id Patient Instructions Last Modified By Organization Details Last Modified Time 11/20/2019 [id number] Last UADS obtain ed on 09/29/2019 +buprenorphine consistent for prescribed medication Medication List was reviewed and/or updated during this visit, including review of any wblg-pmm-hrajbyb medications, herbal therapies, and/or supplements. [place] Prescription Drug Monitoring program was reviewed today. [...] prn RR Not available 11/20/2019 14:55:30 12/18/2019 [id number] UDS collected today. Will await final confirmation from the laboratory. She will be screened today for adherence to her treatment plan and medication compliance. Medication List was reviewed and/or updated during this visit, including review of any rnsk-ysc-cqkbejt medications, herbal therapies, and/or supplements. Allergies updated. [place] Prescription Drug Monitoring program was reviewed today, appropriate. Risk Assessment: 9- high Risk. Ms. Guardado did not exhibit any behaviors today that would indicate illicit drug use. This assessment was obtained using the [place] Opioid Risk Tool on 11/06/2018. MED: 0 according to the [place] Prescription Drug Monitoring Program. A sleep study [...] order for a nerve conduction study to [facility] was sent on 11/20/2019. [facility] reported back stating that they need a [place] authorization request put in before proceding with [...] or corrections. Not available 12/22/2019 13:00:59 02/16/2020 [id number] Last UADS obtain ed on 12/18/2019 +buprenorphine consistent for prescribed medication Medication List was reviewed and/or updated during this visit, including review of any tzyj-eug-kmrreel medications, herbal therapies, and/or supplements. Allergies updated. [place] Prescription Drug Monitoring program was reviewed today, [...] Clinic [address], [place], [address], 12/22/2019 16:13:19 12/18/19 20 12/22/2019 full panel barbiturates Negati ve < 200 Not Available [facility] [address], [place], [address], 12/22/2019 16:13:19 12/18/1912/22/2019 full panel benzodiazepi brandy Positi ve < 200 high Not Available [facility] [address], [place], [address], 12/22/2019 16:13:19 12/18/19 20 12/22/2019 full panel buprenorphin e Positi ve < 20 high Not Available [facility] [address], [place], [address], 12/22/2019 16:13:19 12/18/1912/22/2019 full panel cocaine Negati ve < 150 Not Available [facility] [address], [place], [address], 12/22/2019 16:13:19 12/18/19 20 12/22/2019 full panel ecstasy Negati ve < 500 Not Available [facility] [address], [place], [address], 12/22/2019 16:13:19 12/18/1912/22/2019 full panel heroin 6AM Negati ve < 10 Not Available [facility] [address], [place], [address], 12/22/2019 16:13:19 12/18/1912/22/2019 full panel methadone metabolite Negati ve < 1000 Not Available [facility] [address], [place], [address], 12/22/2019 16:13:19 12/18/19 20 12/22/2019 full panel opiates Negati ve < 300 Not Available [facility] [address], [place], [address], 12/22/2019 16:13:19 12/18/19 20 12/22/2019 full panel oxycodone Negati ve < 300 Not Available [facility] [address], [place], [address], 12/22/2019 16:13:19 12/18/19 20 12/22/2019 full panel pcp Negati ve < 25 Not Available [facility] [address], [place], [address], 12/22/2019 16:13:19 12/18/19 20 12/22/2019 full panel creatinine Normal >= 20 normal Not Available [facility] [address], [place], [address], 12/22/2019 16:13:19 12/18/19 20 12/22/2019 full panel pH Normal 4.5 - 9 normal Not Available [facility] [address], [place], [address], 12/22/2019 16:13:19 12/18/19 20 12/22/2019 full panel specific gravity Normal NG/mL 1.004 - 1.036 normal Not Available [facility] [address], [place], [address], 12/22/2019 16:13:19 12/18/19 20 12/22/2019 full panel oxidant Normal <= 200 normal Not Available [facility] [address], [place], [address], 12/22/2019 16:13:19 12/18/19 20 12/22/2019 full panel temperature Normal F manual normal Not Available [facility] [address], [place], [address], 12/22/2019 16:13:19 Result Notes None recorded. Problems Name Problem SNOMED Code Status Onset Date Resolution Date Notes Provider Name and Address Organization Details Recorded Time Numbness of hand 018987156 Active Frida Joe hong [facility] 0 14:33:48 Chronic pain 26826430 Active 2018 Giselle hong [facility] 9 15:36:58 Opioid dependence 79619772 [facility] 15:57:42 Low back pain 355952056 [facility] 9 15:57:49 Pain of sacroiliac joint 937099890 [facility] 9 15:57:58 Fibromyalg ia 492279844 Active 2018 [facility] 9 15:58:07 Central sleep apnea syndrome 02320611 [facility] 9 15:58:40 Chronic neck pain 9087814818027 Active 2018 Bhavik Garcia MD [address], [place], [address] , [facility] [place] [facility] 9 00:15:21 Thompson's neuroma of right foot 3084559678376 08 Active 2018 Bhavik Garcia MD [address], [place], [address] , [facility] [place] [facility] 9 23:50:15 Lumbar spondylosi s 617564588 Active 2018 Eddie hong [facility] 9 15:21:27 Spasm 80911287 Active 2018 Eddie hong [facility] 9 15:21:29 Problem Notes None recorded. Procedures Surgical History Date Name Laterality Status Provider Name and Address Organization Details Recorded Time 09/08/19 20 Lumbar Medial Branch Blocks With Sedation completed Bhavik Garcia MD [address], [place], [address], [facility] [place] [facility] 09/08/2019 14:27:56 03/27/20 19 Sacroiliac Joint Steroid Injection Under Fluoroscopy completed Bhavik Garcia MD [address], [place], [address], [facility] [place] [facility] 03/27/2019 18:35:31 02/14/20 19 Lumbar Medial Branch Block completed Bhavik Garcia MD [address], [place], [address], [facility] [place] [facility] 02/13/2019 19:37:43 03/16/20 12 repair of hernia of abdominal wall completed [facility] 11/05/2018 15:22:20 bariatric operative procedure completed [facility] 11/05/2018 15:26:48 section completed [facility] 11/05/2018 15:20:01 Cholecystectomy completed [facility] 11/05/2018 15:23:52 closure of patent foramen ovale completed [facility] 11/05/2018 15:25:01 exploratory laparotomy completed [facility] 11/05/2018 15:26:14 Gastric bypass for obesity completed [facility] 11/05/2018 15:26:35 Imaging Results None recorded. Procedure Notes None recorded. Medical Equipment None Reported. Allergies Allergen ID Allergen Name Allergen Category Reaction Reaction Severity Criticality Documentation Date Start Date Code Code System Note Provider Name and Address Organization Details Recorded Time zolpidem medicatio n other Not available Not available 11/05/2018 84337 RxNorm [facility] 0 12:09:52 oxycodone medicatio n other Not available Not available 11/05/2018 7804 RxNorm Tadeo Kitchen [facility] 0 12:09:49 lorazepam medicatio n other Not available Not available 11/05/2018 6470 RxNorm Tadeo Kitchen [facility] 0 12:09:47 Medications [...] Not Available Not Available Not Available vitamin H09-whmrx acid injection solution Take 1 mL every [...] Body height Heart rate Body temperature Systolic And Diastolic Provider Name and Address Organization Details Last Updated DateTime 11/20/2019 177.8 cm 96 /min 97.3 [degF] 142/88 mm[Hg] Logan [facility] 11/20/2019 14:55:47 Date Recorded Body height Body temperature Provider N wendy and Address Organization Details Last Updated DateTime 12/18/2019 177.8 cm 100.7 [degF] Kayla [facility] 12/22/2019 12:35:58 Date Recorded Body height Provider Name an d Address Organization Details Last Updated DateTime 01/19/2020 177.8 cm Nehal [facility] 01/19/2020 14:24:53 Date Recorded Body height Heart rate Systolic And Diastolic Provider Name and Address Organization Details Last Updated DateTime 02/16/2020 177.8 cm 94 /min 126/91 mm[Hg] Logan [facility] 02/16/2020 18:12:39 Social History Question Answer Notes LastModified by Organizat ion Details LastModified Time Tobacco Smoking Status Never Smoker [facility] 11/06/2018 15:34:28 Do You Have An Advance Directive? Yes [email or web address] Information not available 11/06/2018 Auto Related Injury? No [email or web address] Information not available 11/06/2018 Are You Blind Or Do You Have Difficulty Seeing? Yes [email or web address] Information not available 11/06/2018 What Is Your Level Of Caffeine Consumption? Moderate [email or web address] Information not available 11/06/2018 How Much Tobacco Do You Chew? None Information not available 11/06/2018 What Type Of Diet Are You Following? REGULAR Information not available 11/06/2018 Education 2 Year College Information not available 11/06/2018 Which Of Your Hands Is Dominant? Right [email or web address] Information not available 11/06/2018 Live Alone Or With Others? With Others [email or web address] Information not available 11/06/2018 Marital Status [email or web address] Informatio n not available 11/06/2018 What Was The Date Of Your Most Recent Tobacco Screening? 01/14/2019 Information not available 02/06/2019 What Types Of Sporting Activities Do You Participate In? No Information not available 08/26/2019 General Stress Level Medium [email or web address] Information not available 11/06/2018 Do You Have Difficulty Walking Or Climbing Stairs? Yes [email or web address] Information not available 11/06/2018 Work Related Injury? No Information not available 11/06/2018 Sex: Unknown Functional Status Question Answer Note LastModified by Organizat ion Details LastModified Time What is your level of alcohol consumption? None [email or web address] Information not available 11/06/2018 Are you currently employed? No [email or web address] Information not available 11/06/2018 What is your exercise level? Occasional Information not available 11/06/2018 Mental Status None recorded. Family History Relationship Description Onset Age of this Age Resolved Age Notes LastModified by Organization Details LastModified Time Maternal Grandmother Hypertensive disorder [email or web address] Not available 11/06 15:34:10 Maternal Grandmother Heart disease [email or web address] Not available 11/06 15:34:10 Mother Disorder of thyroid gland [email or web address] Not available 11/06 15:34:10 Mother Osteoporosis [email or web address] Not matthew ilable 11/06/2018 15:34:10 Father Diabetes mellitus [email or web address] Not available 11/06 15:34:10 Father Depressive disorder [email or web address] Not available 11/06 15:34:10 Father Anxiety disorder [email or web address] Not available 11/06 15:34:10 Brother Depressive disorder [email or web address] Not available 11/06 15:34:10 Brother Anxiety disorder Not available 11/06 15:34:10 Sister Disorder of thyroid gland [email or web address] Not available 11/06 15:34:10 Medical History Condition [...] SNOMED-CT Code Diagnosis ICD10 Code Diagnosis Note [id number] Bhavik Garcia MD Main Office [address] [facility] [address] [address] 11/06/2018 14:13:34 11/08/2018 15:40:28 Chronic pain 65353370 G89.29 Pt hs been on opioids since 2012Pt has been weaning down on the opioids for the past year.Pt has noticed withdrawal symptoms Long-term drug therapy 743901492 Z79.899 Opioid dependence 314660 00 F11.20 weaned of Provigil in Oct 2018 Low back pain 248508334 M54.5 CT L-spine (11 Jun 2018)-- slight retrolisth esis of L2 on L3. Mild degenerati ve changes of T12-L3, No CS, No NFS Pain of sa croiliac joint 557846982 M53.3 Patient to obtain records Fibromyalgia 149701873 M 79.7 on Lyrica 150 mg po bid Central sl eep apnea syndrome 64802522 G47.31 Bi-Pap machine -JBER Chronic neck pain 071227 [address] C-spine (11 Jun 2018) -- mild DDD of the lower C-spine. No acute injury CT T-spine (11 Jun 2018)-- No abnormalit y [id number] Bhavik Garcia MD Main Office [address] [facility] [address] [place] [address] 11/21/2018 13:45:29 11/26/2018 16:57:24 Chronic pain 26372481 G89.29 Pt hs been on opioids since 2012Pt has been weaning down on the opioids for the past year.Pt has noticed withdrawal symptoms Opioid dependence 748980 00 F11.20 weaned of Provigil in Oct 2018 Constipation 58797880 K5 9.00 recommend using miralax on a daily basis Central sl eep apnea syndrome 23179046 G47.31 Bi-Pap machine -JBER Low back pain 708198982 M54.5 CT L-spine (11 Jun 2018)-- slight retrolisth esis of L2 on L3. Mild degenerati ve changes of T12-L3, No CS, No NFS Fibromyalgia 934912330 M 79.7 on Lyrica 150 mg po bid [id number] Bhavik Garcia MD Main Office [address] [facility] [address] [place] [address] 12/11/2018 12:32:03 12/13/2018 14:05:44 Chronic pain 69318212 G89.29 Pt hs been on opioids since 2012Pt has been weaning down on the opioids for the past year.Pt has noticed withdrawal symptoms Low back pain 614144197 M54.5 CT L-spine (11 Jun 2018)-- slight retrolisth esis of L2 on L3. Mild degenerati ve changes of T12-L3, No CS, No NFS Pain of sa croiliac joint 791480427 M53.3 Patient to obtain records Opioid dependence 423765 00 F11.20 started suboxone on 06 November 2018 weaned of Provigil in Oct 2018 Thompson's n euroma of right foot 3426250473 27294 G57.61 scheduled for [facility] Neuroma excision on 12 Dec 2018 from the right foot Pt plans to use the buprenorph ine for pain controlmay also use Ibuprofen / TylenolIf worse pain than expected will use short course of oxycodone Central sl eep apnea syndrome 17699882 G47.31 Bi-Pap machine -JBER Fibromyalgia 563694839 M 79.7 on Lyrica 150 mg po bid [id number] Bhavik Garcia MD Main Office [address] [facility] [address] [place] [address] 12/17/2018 13:08:21 12/23/2018 15:48:29 Chronic pain 89742869 G89.29 Pt hs been on opioids since 2012Pt has been weaning down on the opioids for the past year.Pt has noticed withdrawal symptoms Opioid dependence 914993 00 F11.20 started suboxone on 06 November 2018 weaned of Provigil in Oct 2018 Jay's n euroma of right foot 2429072951 21597 G57.61 scheduled for [facility] Neuroma excision on 12 Dec 2018 from the right foot Pt plans to use the buprenorph ine for pain controlmay also use Ibuprofen / TylenolIf worse pain than expected will use short course of oxycodone Low back pain 453581863 M54.5 CT L-spine (11 Jun 2018)-- slight retrolisth esis of L2 on L3. Mild degenerati ve changes of T12-L3, No CS, No NFS Pain of sa croiliac joint 117847452 M53.3 Patient to obtain records Central sl eep apnea syndrome 16553756 G47.31 Bi-Pap machine -JBER Fibromyalgia 486427706 M 79.7 on Lyrica 150 mg po bid [id number] Bhavik Garcia MD Main Office [address] [facility] [address] [place] [address] 01/14/2019 14:33:23 01/22/2019 13:33:27 Opioid dependence 19770479 F11.20 started suboxone on 06 November 2018 weaned of Provigil in Oct 2018 Thompson's n euroma of right foot 0096769814 04544 G57.61 Mortons Neuroma excision on 12 Dec 2018 from the right foot on [facility] (Dr. Collier) Pt plans to use the buprenorph ine for pain controlmay also use Ibuprofen / TylenolIf worse pain than expected will use short course of oxycodone Pain of sa croiliac joint 220710493 M53.3 Patient to obtain records Central sl eep apnea syndrome 69503540 G47.31 Bi-Pap machine -JBER Fibromyalgia 628194110 M 79.7 on Lyrica 150 mg po bid Spasm 02622495 R25.2 Took over Cyclobenza la Lumbar spondylosis [address] L-spine (11 Jun 2018)-- slight retrolisth esis of L2 on L3. Mild degenerati ve changes of T12-L3, No CS, No NFS Ordered BL MBB L3-5 [id number] Bhavik Garcia MD Main Office [address] [address] 02/10/2019 18:15:08 02/18/2019 18:01:34 Opioid dependence 25260880 F11.20 started suboxone on 06 November 2018 weaned of Provigil in Oct 2018 Lumbar spondylosis [address] L-spine (11 Jun 2018)-- slight retrolisth esis of L2 on L3. Mild degenerati ve changes of T12-L3, No CS, No NFS scheduled for MBB#1 stephon L3,L4,L5 on 13 Feb 2019 Thompson's n euroma of right foot 9952184563 79859 G57.61 [facility]ons Neuroma excision on 12 Dec 2018 from the right foot on [facility] (Dr. Collier) healing well Pain of sa croiliac joint 987550456 M53.3 Patient to obtain records Central sl eep apnea syndrome 80626873 G47.31 Bi-Pap machine -JBER Fibromyalgia 031412960 M 79.7 on Lyrica 150 mg po bid Spasm 13847956 R25.2 Took over Cyclobenza la Chronic pain 24635542 G8 9.29 Pt hs been on opioids since 2012Pt has been weaning down on the opioids for the past year.Pt has noticed withdrawal symptoms [id number] Bhavik Garcia MD Main Office [address] [facility] [address] [place] [address] 02/13/2019 18:47:41 02/20/2019 16:21:24 Lumbar spondylosis 520969988 M47.816 CT L-spine (11 Jun 2018)-- slight retrolisth esis of L2 on L3. Mild degenerati ve changes of T12-L3, No CS, No NFS completed stephon L3,L4, L5 MBB#1 on 13 Feb 2019 [id number] Bhavik Garcia MD Main Office [address] [facility] [address] [place] [address] 03/10/2019 17:38:53 03/18/2019 18:30:29 Opioid dependence 50916306 F11.20 started suboxone on 06 November 2018 weaned of Provigil in Oct 2018 Lumbar spondylosis [address] L-spine (11 Jun 2018)-- slight retrolisth esis of L2 on L3. Mild degenerati ve changes of T12-L3, No CS, No NFS completed stephon L3,L4, L5 MBB#1 on 13 Feb 2019 -- reports>80 % pain reductionw ill schedule MBB#2 L3,L4,L5 Thompson's n euroma of right foot 8296530728 87347 G57.61 [facility]ons Neuroma excision on 12 Dec 2018 from the right foot on JBER (Dr. Collier) healing well Central sl eep apnea syndrome 20387384 G47.31 Bi-Pap machine -JBER Fibromyalgia 640978658 M 79.7 on Lyrica 150 mg po bid Spasm 91578975 R25.2 Took over Cyclobenza la Long-term drug therapy 502349918 Z79.899 [id number] Bhavik Garcia MD Main Office [address] [facility] [address] [place] [address] 03/27/2019 17:36:09 04/03/2019 13:06:15 Pain of sacroiliac joint 406764579 M53.3 completed left SI jt injection on 27 Mar 2019 [id number] Bhavik Garcia MD Main Office [address] [address] 04/08/2019 13:42:28 04/15/2019 13:49:15 Opioid dependence 81020209 F11.20 started suboxone on 06 November 2018 Lumbar spondylosis [address] L-spine (11 Jun 2018)-- slight retrolisth esis of L2 on L3. Mild degenerati ve changes of T12-L3, No CS, No NFS completed stephon L3,L4, L5 MBB#1 on 13 Feb 2019 -- reports>80 % pain reduction Schedued for MBB#2 L3,L4,L5 on 24 Apr 2019 Central sl eep apnea syndrome 66745930 G47.31 Bi-Pap machine -JBER Fibromyalgia 222440327 M 79.7 on Lyrica 150 mg po bid Spasm 83226871 R25.2 Long-term drug therapy 653953972 Z79.899 Pain of sa croiliac joint 059295529 M53.3 completed left SI jt injection on 27 Mar 2019--80% pain reduction [id number] Bhavik Garcia MD Main Office [address] [facility] [address] [place] [address] 05/06/2019 13:38:05 05/13/2019 14:09:45 Opioid dependence 50927690 F11.20 started suboxone on 06 November 2018 Pain of sa croiliac joint 015526760 M53.3 completed left SI jt injection on 27 Mar 2019--80% pain reduction Fibromyalgia 441481260 M 79.7 on Lyrica 150 mg po bid Spasm 78627671 R25.2 Central sl eep apnea syndrome 21955318 G47.31 Bi-Pap machine -JBER Long-term drug therapy 514224505 Z79.899 Lumbar spondylosis [address] L-spine (11 Jun 2018)-- slight retrolisth esis of L2 on L3. Mild degenerati ve changes of T12-L3, No CS, No NFS completed stephon L3,L4, L5 MBB#1 on 13 Feb 2019 -- reports>80 % pain reduction Scheduled for MBB#2 L3,L4,L5 on 12 May 2019 [id number] Bhavik aGrcia MD Main Office [address] [facility] [address] [place] [address] 06/03/2019 15:40:20 06/16/2019 16:00:37 Opioid dependence 99699251 F11.20 started suboxone on 06 November 2018 Lumbar spondylosis [address] L-spine (11 Jun 2018)-- slight retrolisth esis of L2 on L3. Mild degenerati ve changes of T12-L3, No CS, No NFS completed stephon L3,L4, L5 MBB#1 on 13 Feb 2019 -- reports>80 % pain reduction will order MBB#2 L3,L4,L5 Pain of sa croiliac joint 144525870 M53.3 completed left SI jt injection on 27 Mar 2019--80% pain reduction Fibromyalgia 797784981 M 79.7 on Lyrica 150 mg po bid Spasm 29624483 R25.2 Central sl eep apnea syndrome 69464950 G47.31 Bi-Pap machine -JBER Thompson's n euroma of right foot 2711216909 45881 G57.61 [facility]ons Neuroma excision on 12 Dec 2018 from the right foot on JBER (Dr. Collier) healing well Chronic pain 73717223 G8 9.29 Pt hs been on opioids since 2012Pt has been weaning down on the opioids for the past year.Pt has noticed withdrawal symptoms [id number] Bhavik Garcia MD Main Office [address] [place] [place] [id number] [facility] [address] [place] [address] 06/30/2019 18:09:50 07/10/2019 17:49:54 Opioid dependence 99363289 F11.20 started suboxone on 06 November 2018 Chronic neck pain 932207 [address] C-spine (11 Jun 2018) -- mild DDD of the lower C-spine. No acute injury CT T-spine (11 Jun 2018)-- No abnormalit y Neck pain 04498248 M54.2 Lumbar spondylosis [address] L-spine (11 Jun 2018)-- slight retrolisth esis of L2 on L3. Mild degenerati ve changes of T12-L3, No CS, No NFS completed tsephon L3,L4, L5 MBB#1 on 13 Feb 2019 -- reports>80 % pain reduction will order MBB#2 L3,L4,L5 [id number] Bhavik Garcia MD Main Office [address] [facility] [address] [place] [address] 07/29/2019 13:42:17 08/04/2019 18:41:56 Opioid dependence 84779791 F11.20 started suboxone on 06 November 2018 Chronic pain 95968702 G8 9.29 Pt hs been on opioids since 2013Pt has been weaning down on the opioids for the past year.Pt has noticed withdrawal symptoms Lumbar spondylosis [address] L-spine (11 Jun 2018)-- slight retrolisth esis of L2 on L3. Mild degenerati ve changes of T12-L3, No CS, No NFS completed stephon L3,L4, L5 MBB#1 on 13 Feb 2019 -- reports>80 % pain reduction will order MBB#2 L3,L4,L5 Pain of sa croiliac joint 709397461 M53.3 completed left SI jt injection on 27 Mar 2019--80% pain reduction Long-term drug therapy 678720951 Z79.899 [id number] Bhavik Garcia MD Main Office [address] [facility] [address] [place] [address] 08/26/2019 14:00:21 08/29/2019 14:10:10 Opioid dependence 39855799 F11.20 started suboxone on 06 November 2018 Chronic pain 61316947 G8 9.29 Lumbar spondylosis [address] L-spine (11 Jun 2018)-- slight retrolisth esis of L2 on L3. Mild degenerati ve changes of T12-L3, No CS, No NFS completed stephon L3,L4, L5 MBB#1 on 13 Feb 2019 -- reports>80 % pain reduction will order MBB#2 stephon L3,L4,L5 Pain of sa croiliac joint 949775912 M53.3 completed left SI jt injection on 27 Mar 2019--80% pain reduction Numbness of hand 8809619 04 R20.0 will order stephon UE EMG / NCS to r/o CTSwill set up with nocturnal wrist splints Spasm 68035160 R25.2 [id number] Bhavik Garcia MD Main Office [address] [address] 09/08/2019 13:31:26 09/12/2019 14:03:08 Lumbar spondylosis 167172490 M47.816 CT L-spine (11 Jun 2018)-- slight retrolisth esis of L2 on L3. Mild degenerati ve changes of T12-L3, No CS, No NFS completed stephon L3,L4, L5 MBB#1 on 13 Feb 2019 -- reports>80 % pain reduction completed stephon MBB#2 on 08 Sep 2019prepro cedure pain was 01/22 [id number] Yolis Miley espinoza, Main Office [address] [address] 09/25/2019 13:48:32 09/25/2019 18:41:45 Lumbar spondylosis 780212794 M47.896 CT L-spine (11 Jun 2018)-- slight retrolisth esis of L2 on L3. Mild degenerati ve changes of T12-L3, No CS, No NFS completed stephon L3,L4, L5 MBB#1 on 13 Feb 2019 -- reports>80 % pain reduction L3, L4, L5 MBB #2 on 09/08/19: 80% relief Opioid dependence 929835 00 F11.20 Chronic pain 36385570 G8 9.29 Patient takes medication s for this condition. Numbness of hand 7405057 04 R20.0 UE EMG have been ordered. Pt. needs to schedule [id number] Bhavik Garcia MD Main Office [address] [address] 10/23/2019 13:59:53 10/31/2019 14:03:53 Opioid dependence 27181258 F11.20 started suboxone on 06 November 2018 Lumbar spondylosis [address] L-spine (11 Jun 2018)-- slight retrolisth esis of L2 on L3. Mild degenerati ve changes of T12-L3, No CS, No NFS completed stephon L3,L4, L5 MBB#1 on 13 Feb 2019 -- reports>80 % pain reduction Completed MBB#2 stephon L3,L4,L5 08 Sep 2019-80% relief Pain of sa croiliac joint 833371839 M53.3 completed left SI jt injection on 27 Mar 2019--80% pain reduction Numbness of hand 9505393 04 R20.0 Occasional numbness right hand index middle and ring finger Chronic neck pain 819026 [address] C-spine (11 Jun 2018) -- mild DDD of the lower C-spine. No acute injury CT T-spine (11 Jun 2018)-- No abnormalit y [id number] Bhavik Garcia MD Main Office [address] [address] 11/20/2019 14:00:56 11/26/2019 18:42:05 Lumbar spondylosis 855771632 M47.816 CT L-spine (11 Jun 2018)-- slight retrolisth esis of L2 on L3. Mild degenerati ve changes of T12-L3, No CS, No NFS completed stephon L3,L4, L5 MBB#1 on 13 Feb 2019 -- reports>80 % pain reduction Completed MBB#2 stephon L3,L4,L5 08 Sep 2019-80% relief will order Left RFA L3,L4,L5sc heduled for right RFA L3,L4,L5 on 05 Dec 2019 Opioid dependence 901586 00 F11.20 started suboxone on 06 November 2018 Pain of sa croiliac joint 771480945 M53.3 completed left SI jt injection on 27 Mar 2019--80% pain reduction Numbness of hand 0966584 04 R20.0 Occasional numbness right hand index middle and ring fingerwill order NCS / EMG of the UE Chronic neck pain 028135 [address] C-spine (11 Jun 2018) -- mild DDD of the lower C-spine. No acute injury CT T-spine (11 Jun 2018)-- No abnormalit y [id number] Jorge Alberto Marr MD Main Office [address] [address] 12/05/2019 12:11:05 12/17/2019 19:36:10 [id number] Bhavik Garcia MD Main Office [address] [facility] [address] [place] [address] 12/18/2019 14:00:17 12/29/2019 13:43:26 Opioid dependence 86550394 F11.20 started suboxone on 06 November 2018[facility]es to [facility] times [facility] month Lumbar spondylosis [address] L-spine (11 Jun 2018)-- slight retrolisth esis of L2 on L3. Mild degenerati ve changes of T12-L3, No CS, No NFS completed stephon L3,L4, L5 MBB#1 on 13 Feb 2019 -- reports>80 % pain reductionC ompleted MBB#2 stephon L3,L4,L5 08 Sep 2019-80% relief completed right RFA L3,L4,L5 on 05 Dec 2019---rep orts 80% pain reduction Pain of sa croiliac joint 982551214 M53.3 completed left SI jt injection on 27 Mar 2019--80% pain reduction Numbness of hand 1209742 04 R20.0 Occasional numbness right hand index middle and ring fingerneed to reorder NCS / EMG of the UE to [facility] Chronic neck pain 435691 [address] C-spine (11 Jun 2018) -- mild DDD of the lower C-spine. No acute injury CT T-spine (11 Jun 2018)-- No abnormalit y Long-term drug therapy 298261698 Z79.899 [id number] Bhavik Garcia MD Main Office [address] [place], [place] [address]Y [address] [address] 01/19/2020 13:53:44 01/30/2020 19:48:04 Opioid dependence 03799192 F11.20 started suboxone on 06 November 2018[facility] Lumbar spondylosis [address] L-spine (11 Jun 2018)-- slight retrolisth esis of L2 on L3. Mild degenerati ve changes of T12-L3, No CS, No NFS completed stephon L3,L4, L5 MBB#1 on 13 Feb 2019 -- reports>80 % pain reductionC ompleted MBB#2 stephon L3,L4,L5 08 Sep 2019-80% relief completed right RFA L3,L4,L5 on 05 Dec 2019---rep orts 80% pain reduction Pain of sa croiliac joint 033942219 M53.3 completed left SI jt injection on 27 Mar 2019--80% pain reduction Numbness of hand 9905954 04 R20.0 Occasional numbness right hand index middle and ring fingerneed to reorder NCS / EMG of the UE to [facility] Chronic neck pain 539447 [address] C-spine (11 Jun 2018) -- mild DDD of the lower C-spine. No acute injury CT T-spine (11 Jun 2018)-- No abnormalit y [id number] Bhavik Garcia MD Main Office [address] [facility] [address] [place] [address] 02/16/2020 17:03:53 02/23/2020 18:27:24 Opioid dependence 76213724 F11.20 started suboxone on 06 November 2018Goes to [facility] times a month Numbness of hand 4694466 04 R20.0 Occasional numbness right hand index middle and ring fingerneed to reorder NCS / EMG of the UE to [facility] PTOrder was not improved through tricarePt is PCSing out of area through the in 3 weeks Pain of croiliac joint 120722560 M53.3 completed left SI jt injection on 27 Mar 2019--80% pain reduction Pt reports LBP with radicular down to the knees Lumbar spondylosis [address] L-spine (11 Jun 2018)-- slight retrolisth esis of L2 on L3. Mild degenerati ve changes of T12-L3, No CS, No NFS completed stephon L3,L4, L5 MBB#1 on 13 Feb 2019 -- reports>80 % pain reductionC ompleted MBB#2 stephon L3,L4,L5 08 Sep 2019-80% relief completed right RFA L3,L4,L5 on 05 Dec 2019---rep orts 80% pain reduction Chronic neck pain 050907 [address] C-spine (11 Jun 2018) -- mild DDD of the lower C-spine. No acute injury Health Concerns Section Related Observation LastModified by Organization Detai ls LastModified Time None Recorded Concern Status LastModified by Organization Details LastModified Time None Recorded Advance Directives Directive Y: Payers Insurance Date Sequence Insurance Name Policy Number Policy Wilks Covered Member ID Wilks Member ID Guarantor Name 02/23/2020 1 [facility] Damir Guardado [id number] Holly Guardado Notes Date Note Type Note Provider Name and Address Organization Details Recorded Time 11/20/2019 text/html [facility] HPI PAINRep orted by StaffHPIFor location, staff reportsboth head,both neck,right shoulder,both arm,both wrist,right hand,both upper back,both mid back,both lower back),both abdomen,both hip,both knee,right ankle, andright foot. For pain better, staff reportsmassage,relieve d by heat,medications,resti ng,lying down,sitting,injection , andphysical therapy. For pain worse, staff reportschange in weather,certain movements,bending,runn ing,walking,lifting,sq uatting,twisting,climb ing stairs, andstraining. For pain description, staff reportsaching,throbbin g,shooting,character: stabbing,sharp, andcharacter: dull. For onset/timing, staff reportsevening. For past treatments to alleviate pain, staff reportsaccupuncture,be drest,steroid injection,medial branch block,pain medication,physical therapy,psychiatrist,r adio frequency,selective nerve root block, andtranscutaneous electrical nerve stimulator (tens unit). For other sources of pain medication, staff reportsyes. For pain management, staff reportsyes. For pain scale average, staff reportslevel of pain: 6. For pain timeframe, staff reportsconstant.ROS as noted in the HPI Ms. Guardado is here for a follow [...] at a 5/10. RR Bhavik Garcia MD [address] [facility] [address], [place], [address], [facility] 11/24/2019 00:10:25 12/18/2019 text/html [facility] HPI PAINRep orted by StaffHPIFor location, staff reportsboth head,both neck,right shoulder,both arm,both wrist,right hand,both upper back,both mid back,both lower back),both abdomen,both hip,both knee,right ankle, andright foot. For pain better, staff reportsmassage,relieve d by heat,medications,resti ng,lying down,sitting,injection , andphysical therapy. For pain worse, staff reportschange in weather,certain movements,bending,runn ing,walking,lifting,sq uatting,twisting,climb ing stairs, andstraining. For pain description, staff reportsaching,throbbin g,shooting,character: stabbing,sharp, andcharacter: dull. For onset/timing, staff reportsevening. For past treatments to alleviate pain, staff reportsaccupuncture,be drest,steroid injection,medial branch block,pain medication,physical therapy,psychiatrist,r adio frequency,selective nerve root block, andtranscutaneous electrical nerve stimulator (tens unit). For other sources of pain medication, staff reportsyes. For pain management, staff reportsyes. For pain scale average, staff reportslevel of pain: 6. For pain timeframe, staff reportsconstant.ROS as noted in the HPI Ms. Guardado is in office today for [...] current pain level is 3/10 with medication.MHA, [employer] WORKER Bhavik Garcia MD [address] [facility] [address], [place], [address], [facility] 12/22/2019 13:14:26 01/19/2020 text/html [facility] HPI PAINRep orted by StaffHPIFor location, staff reportsboth head,both neck,right shoulder,both arm,both wrist,right hand,both upper back,both mid back,both lower back),both abdomen,both hip,both knee,right ankle, andright foot. For pain better, staff reportsmassage,relieve d by heat,medications,resti ng,lying down,sitting,injection , andphysical therapy. For pain worse, staff reportschange in weather,certain movements,bending,runn ing,walking,lifting,sq uatting,twisting,climb ing stairs, andstraining. For pain description, staff reportsaching,throbbin g,shooting,character: stabbing,sharp, andcharacter: dull. For onset/timing, staff reportsevening. For past treatments to alleviate pain, staff reportsaccupuncture,be drest,steroid injection,medial branch block,pain medication,physical therapy,psychiatrist,r adio frequency,selective nerve root block, andtranscutaneous electrical nerve stimulator (tens unit). For other sources of pain medication, staff reportsyes. For pain management, staff reportsyes. For pain scale average, staff reportslevel of pain: 6. For pain timeframe, staff reportsconstant.ROS as noted in the HPI Ms. Guardado is present today with complaints [...] concerns at this time. Bhavik Garcia MD [address], [address], [facility] 01/20/2020 23:50:24 02/16/2020 text/html [facility] HPI PAINRep orted by StaffHPIFor location, staff reportsboth head,both neck,right shoulder,both arm,both wrist,right hand,both upper back,both mid back,both lower back),both abdomen,both hip,both knee,right ankle, andright foot. For pain better, staff reportsmassage,relieve d by heat,medications,resti ng,lying down,sitting,injection , andphysical therapy. For pain worse, staff reportschange in weather,certain movements,bending,runn ing,walking,lifting,sq uatting,twisting,climb ing stairs, andstraining. For pain description, staff reportsaching,throbbin g,shooting,character: stabbing,sharp, andcharacter: dull. For onset/timing, staff reportsevening. For past treatments to alleviate pain, staff reportsaccupuncture,be drest,steroid injection,medial branch block,pain medication,physical therapy,psychiatrist,r adio frequency,selective nerve root block, andtranscutaneous electrical nerve stimulator (tens unit). For other sources of pain medication, staff reportsyes. For pain management, staff reportsyes. For pain scale average, staff reportslevel of pain: 6. For pain timeframe, staff reportsconstant.ROS as noted in the HPI Ms. Guardado is here for a follow [...] at a 3/10. RR Bhavik Garcia MD [address] [facility] [address], [address], [place] [facility] 02/18/2020 23:20:45 OBGyn Episode No OBEpisode recorded.
--- OUTSIDE RECORDS SUMMARY | 2025-02-06 10:53 | XMS_ITS | Patient Health Record ---
Author Organization [employer] [facility] Address [address] [facility] [address] [place] [address] Care Team Providers Care Snow Groomer Name Role Phone Miguel Marrero Primary Care Provider Unavailabl e Domenico Orourke M.D. Unavailabl e Reason For Referral No Information Medications Medication SIG (Take, Route, Frequency, Duration) Notes Start Date End Date Status Cymbalta 30 MG 1 capsule Orally Three times a day; Duration: 30 day(s) Active Lipitor 80 MG 1 tablet Orally Once a day; Duration: 30 day(s) Active Flexeril Takes 10 mg TID Acti ve Lyrica 150 MG 1 capsule Orally Three times a day Active Percocet 5-325 MG 1 tablet as needed Orally every 6 hrs Not-Taking oxyCODONE HCl 15 MG 1 tablet as needed Orally every 6 hrs Not-Taking Topiramate 50 MG 1 tablet Orally Once a day Brand: Topamax Active PriLOSEC 20 MG 1 tab po qd Active SEROquel 300 MG 1 tablet at bedtime Orally Once a day Take BID Active Aspirin 325 MG 1 tablet Orally Once a day Active Lidocaine patches prn Active Buprenorphine HCl-Naloxone HCl 8-2 MG 1 film under the tongue and allow to dissolve Sublingual Once a day Active Colace 100 MG 1 capsule as needed Orally Twice a day; Duration: 30 day(s) Active Bystolic 5 MG 1 tablet Orally Once a day; Duration: 30 day(s) Active Vitamin D3 Active Provigil 200 MG 1 tablet in the morning Orally Once a day Active Synthroid 137 MCG 1 tablet on an empty stomach in the morning Orally Once a day Active Elavil Takes 10 mg QD Not-T aking traZODone HCl 100 MG 1 tablet at bedtime Orally Once a day; Duration: 30 day(s) Not-Taking Ambien CR 12.5 MG 1 tablet at bedtime as needed Orally Once a day PRN Active Imitrex 100 MG 1 tablet as needed Orally As needed Active Iron 325 (65 Fe) MG 1 tablet Orally Once a day; Duration: 30 day(s) Takes BID Active Linzess 145 MCG 1 capsule Orally Once a day; Duration: 30 day(s) Not-Taking Robyn Takes 180mg QD Activ e Flonase Not-Taking metFORMIN HCl 500 MG 1 tablet with meals Orally Twice a day; Duration: 30 day(s) Not-Taking Protonix 40 MG 1 tablet Orally Once a day; Duration: 30 day(s) Not-Taking Plavix 75 MG 1 tablet Orally Once a day; Duration: 30 day(s) Not-Taking Social History Tobacco Use: Social History Observation Description Date Details (start date - stop date) Never Smoker NA - NA Tobacco Use/Smoking Question Answer Notes Are you a nonsmoker Problems Problem Type SNOMED Code ICD Code Onset Dates Problem Status W/U Status Risk Notes Problem Obesity due to excess calories (120656348) Other obesity due to excess calories (E66.09) Active confirmed Problem Chronic pain syndrome (525613831) Chronic pain syndrome (G89.4) Active confirmed Problem Abnormal weight gain (510330142) Abnormal weight gain (R63.5) Active confirmed Problem History of bariatric surgical procedure (875877629) Bariatric surgery status (Z98.84) Active confirmed Problem Essential hypertension (03183372) Essential hypertension (I10) Active confirmed Problem Obstructive sleep apnea (90688511) Obstructive sleep apnea (G47.33) Active confirmed Problem Depressive disorder (disorder) (05831098) Depression, unspecified depression type (F32.9) Active confirmed Problem History of cerebrovascular accident (513565351) History of stroke (Z86.73) Active confirmed Plan Of Treatment No Information Insurance Providers Payer Name Payer Address Payer Phone Subscriber Number Group Number Insured Name Patient Relationship to Insured Coverage Start Date Coverage End Date [employer] / [address] [phone] [id number] PRIME/Damir Reynoso Spouse - patient is the spouse of the insured Medical (General) History Medical History History ICD Code Stroke, 2013 Heartburn/Reflux Severe back/joint pain Fibromyalgia Depression Anxiety Abdominal Hernia Use of cane/crutch/wheelchair Central sleep apnea Lower extremity swelling Menstrual irregularities (not PCOS) Surgical History Surgery Date(Month/Year) 06/22 Gastric Bypass- lap 06/23 Gallbladder Removal 09/22 Exploratory Surgery - unknown bypass rev ision (lap) 10/23 Abdominal Hernia - open midline 03/27 PFO Closure 09/28 Right foot neuroma removal 12/12/18 Hospitalization History Reason Date(Month/Year) Hospitalization for surgical history, [facility], and mini stroke.
--- OUTSIDE RECORDS SUMMARY | 2025-02-06 10:54 | XMS_ITS ---
Author Organization [facility] Address [address] [place], [place] [id number] Care Team Providers Care Reed Maker Name Role Phone KENYON FORREST Unavailable [phone] Darci Woody Unavailable Unavailable Allergies Allergen (clinical [...] [facility] [address] [place], [place] [phone] 01/22/2025 KENYON FORREST Tendinitis of right foot [...] SPIVEY, 02/19/2025 08:40:00 AM, [address], [facility] [place], [place], [phone], Progress Notes * ANGELICA BLACK LDOB: 0 (44 yo F)Acc No.[id number]:01/22/2025 Patient: Michael ANGELICA VIDALES Provider: Kan Forrest DPM :1980 A ge:44 Y S ex:Female Date:01/22/2025 Address:[address] [facility] Subjective: * Chief Complaints: * 1 . *Fracture check with xrays. * HPI: H [facility] [...] LT * Billing Information: * Visit Code: 73181 Office Visit, Est Pt., Level 3. * Procedure Codes: 52868 X-RAY EXAM OF FOOT. Modifiers: LT * Electronic signature of KENYON FORREST DPM on 02/06/2025 at 10:53 AM CDT Sign off status: Pending * Provider: Kan Forrest DPM Date: 01/22/2025 Generated for Dalia grace/Valeri/Mary on: 02/06/2025 10:53 AM CDT History and Physical [...]
--- OUTSIDE RECORDS SUMMARY | 2025-02-06 10:54 | XMS_ITS ---
Author Organization [facility] Address [address] [place], [place] [address] Care Team Providers Care Veneer Stacker Name Role Phone KENYON FORREST Unavailable [phone] Darci Woody Unavailable Unavailable Allergies Allergen (clinical [...] [facility] [address] [place], [place] [phone] 02/05/2025 KENYON FORREST Tendinitis of right foot [...] SPIVEY, 02/19/2025 08:40:00 AM, [address], [facility], [place], [place], [phone], Progress Notes * ANGELICA BLACK LDOB: 0 (44 yo F)Acc No.[id number]:02/05/2025 Patient: Michael ANGELICA VIDALES Estefany Provider: Kan Forrest DPM :1980 A ge:44 Y S ex:Female Date:02/05/2025 Address:[address] [facility] Subjective: * Chief Complaints: * 1 . *Fracture check w/xrays. * HPI: H PI: [facility] fracture [...] pain - M79.672 Plan: * Treatment: * Billing Information: * Visit Code: * Procedure Codes: * Electronic signature of KENYON FORREST DPM on 02/06/2025 at 10:53 AM CDT Sign off status: Pending * Provider: Kan Forrest DPM Date: 02/05/2025 Generated for Dalia grace/Valeri/Mary on: 02/06/2025 10:53 [...]
--- OUTSIDE RECORDS SUMMARY | 2025-02-06 10:54 | XMS_ITS | Clinical Summary ---
Author Organization [address] Address [address] [place] [phone] Care Team Providers Care Tree Planter Name Role Phone Saul Ruelas MD Primary Care Provider [phone] Abiodun Red MD Unavailable Issac Amador MD Unavailable [phone] Allergies No known active allergies Medications [...] 30 tablet 2 11/26/19 25 026 Active cevimeline (EVOXAC) 30 mg capsule TAKE 1 CAPSULE(30 MG) BY MOUTH THREE TIMES DAILY 270 capsule 12/24/19 25 Active mirtazapine (REMERON) 30 mg tabletIndication s:Primary insomnia Take 1 tablet (30 mg total) by mouth nightly 30 tablet 01/13/20 25 025 Active eszopiclone (LUNESTA) 3 mg tabletIndication s:Insomnia Take 1 tablet (3 mg total) by mouth daily Take immediately before bedtime 30 tablet 3 09/08/19 25 025 Discontin ued(Alter ana therapy) Active Problems Problem Noted Date Diagnosed Date Polyarthralgia 11/25/2024 Assessment & Plan (11/25/2024 11:53 AM CDT): No evidence for an inflammatory arthritis on US, XR, or serologies so will defer restarting HCQ at this time. Likely multifactorial with chronic pain from fibromyalgia and degenerative arthritis. She is currently on suboxone through pain management. [place] some relief with meloxicam so will resume [...] needed. Assessment & Plan (09/01/2024 12:03 PM CHART COLLECTOR): 44-year-old female with PMHx of HTN, HLD, [...] hand/wrist US to further evaluate. Increase [place] 5/105; avoiding higher dosing as she already notes diaphoresis with this. Continue HCQ 200mg daily for now. Will start meloxicam 7.5mg daily. Discussed side effects of the medication, including but not limited to GI upset, kidney, and ulcers. Deferring higher dosing due to hx GERD. Will contact casing man for records. Follow up in 2 weeks. Sooner if needed. Seen with Dr. Amador. TONY (obstructive sleep apnea) 10/05/2020 Assessment & Plan (01/12/2025 2:03 PM CDT): The patient is intolerant of higher CPAP pressures, she will continue CPAP at 8 cm water pressure. She is aware that her AHI is elevated. DME adapt Assessment & Plan (07/01/2024 10:25 AM CHART COLLECTOR): Patient continue with CPAP at 8 cm water pressure while sleeping. She was intolerable of higher pressures in the past. DME is adapt. Assessment & Plan (06/28/2023 11:59 AM CHART COLLECTOR): Due to continued symptoms, the patient will continue CPAP at 8 cm water pressure. The patient has an elevated AHI, however she is intolerant of higher pressure. Denied need for supplies. DME adapt Assessment & Plan (06/27/2022 12:02 PM CHART COLLECTOR): Patient continue to wear CPAP at 8 cm water pressure while sleeping. Her DME is adapt. The patient did not tolerate an increase in her pressures in the past. Assessment & Plan (06/30/2021 11:05 AM CHART COLLECTOR): Patient continue to wear CPAP at 8 [...] patient denied need for supplies. DME company [employer]. The patient and I discussed the [...] her mouth coming open while sleeping. The [employer] company is [employer]. The patient is benefitting from CPAP therapy. Primary insomnia 10/05/2020 Assessment & Plan (01/12/2025 2:05 PM CDT): Due to the sleepwalking on Lunesta 3 mg nightly, I have changed the patient's prescription to Remeron 30 mg nightly. I have asked the patient not to take the medications together. The patient also has trazodone 100 mg that she takes on an as as needed basis. We discussed the possible side effects of taking Remeron and trazodone at the same time. The patient does have an appointment set up for Psychiatry. 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 Assessment & Plan (07/01/2024 10:25 AM CHART COLLECTOR): The patient continues with Lunesta 3 mg on most nights. Assessment & Plan (06/28/2023 11:58 AM CHART COLLECTOR): Due to continued symptoms, the patient will continue Lunesta 3 mg nightly. I have refilled the medication and will refill for 1 year Patient is aware that she should wear her CPAP machine if taking the medication. Assessment & Plan (06/27/2022 12:02 PM CHART COLLECTOR): The patient will continue with Lunesta 3 mg p.o. at bedtime to treat insomnia. Assessment & Plan (06/30/2021 11:04 AM CHART COLLECTOR): The patient will continue with Lunesta 3 [...] Encounters Date Type Department Care Team Description 01/12/2025 1:30 PM CDT Office Visit [facility] Pulmonary [place] [address] [facility] [address] [place] [phone] Kelly Jeronimo NP TONY (obstructive sleep apnea) (Primary Dx); Primary insomnia 11/25/2024 11:15 AM CDT Office Visit [address] [phone] Vicenta Early PA Sicca complex (Primary Dx); Polyarthralgia from Last 3 Months Surgical History Surgery [...] on file Legal Sex Female 9:00 AM CHART COLLECTOR Gender Identity Female 09/06/2024 3:20 PM CHART COLLECTOR Sexual Orientation Not on file Obstetrics History Last Filed Vital Signs Vital Sign Reading Time Taken Comments Blood Pressure 124/82 01/12/2025 1:28 PM CDT Pulse 75 01/12/2025 1:28 PM CDT Temperature 36.4 C (97.5 F) 01/12/2025 1:28 PM CDT Respiratory Rate 18 01/12/2025 1:28 PM CDT Oxygen Saturation 98% 01/12/2025 1:28 PM CDT Inhaled Oxygen Concentration - - Weight 127.3 kg (280 lb 9.6 oz) 01/12/2025 1:28 PM CDT Height 177.8 cm (5' 10) 01/12/2025 1:28 PM CDT Body Mass Index 40.26 01/12/2025 1:28 PM CDT Plan of Treatment Health Maintenance Due Date Last Done Comments Breast Cancer Screening-Mammogram 1980 Cervical Cancer Screening 1980 Depression Screening 1980 Hepatitis C Screening 1980 DTaP/Tdap/Td Vaccine (1 - Tdap) 1991 Varicella Vaccines (1 of 2 - 13+ 2-dose series) 1993 Hepatitis B Screening 1998 Regular Well Visit/Exam 18-64 1998 HPV Vaccines (1 - 3-dose SCD M series) 2007 Covid-19 Vaccine (3 - 2023-2 5 season) 2024 10/21/2020, 09/28/2020 Influenza Vaccine (#1) 2025 06/04/2020 Pneumococcal vaccine <65 Aged Out No longer eligible based on patient's age to complete this topic Insurance [address] [place] [id number] [facility] [address] [place] [address] [employer] [facility] [address] [place] [phone] BLUE ACCESS CHOICE [place] [facility] Care Teams Tree Planter Relationship Specialty Start Date End Date Saul Ruelas MD PCP - General Family Medicine 08/25/20 Abiodun Red MD [address] [place] [address] Referring Physician Neurology 11/27/22 Issac Amador MD [address] [place] [address] Consulting Physician Rheumatology 07/23/24
--- OUTSIDE RECORDS SUMMARY | 2025-02-06 10:54 | XMS_ITS | Referral Summary ---
Author Organization [address] Address [address] [place] [phone] Care Team Providers Care Painter Ski Edge Name Role Phone Saul Ruelas MD Primary Care Provider [phone] Abiodun Red MD Unavailable [phone] Issac Amador MD Unavailable [phone] Encounters Date Type Department Care Team Description 01/12/2025 1:30 PM CDT Office Visit [facility] Medical Group Pulmonary [place] [address] [place] [address] [place] [phone] Kelly Jeronimo NP TONY (obstructive sleep apnea) (Primary Dx); Primary insomnia 11/25/2024 11:15 AM CDT Office Visit [address] [phone] Vicenta Early PA Sicca complex [...] is currently on suboxone through pain management. [place] some relief with meloxicam so will resume [...] needed. Assessment & Plan (09/01/2024 12:03 PM WEB DESIGNER): 44-year-old female with PMHx of HTN, HLD, [...] dosing due to hx GERD. Will contact electric blanket packer for records. Follow up in 2 weeks. Sooner if needed. Seen with Dr. Amador. TONY (obstructive sleep apnea) 10/05/2020 Assessment & Plan (01/12/2025 2:03 PM CDT): The patient is intolerant of higher CPAP pressures, she will continue CPAP at 8 cm water pressure. She is aware that her AHI is elevated. DME adapt Assessment & Plan (07/01/2024 10:25 AM WEB DESIGNER): Patient continue with CPAP at 8 cm water pressure while sleeping. She was intolerable of higher pressures in the past. DME is adapt. Assessment & Plan (06/28/2023 11:59 AM WEB DESIGNER): Due to continued symptoms, the patient will continue CPAP at 8 cm water pressure. The patient has an elevated AHI, however she is intolerant of higher pressure. Denied need for supplies. DME adapt Assessment & Plan (06/27/2022 12:02 PM WEB DESIGNER): Patient continue to wear CPAP at 8 cm water pressure while sleeping. Her DME is adapt. The patient did not tolerate an increase in her pressures in the past. Assessment & Plan (06/30/2021 11:05 AM WEB DESIGNER): Patient continue to wear CPAP at 8 [...] masks. The patient denied need for supplies. [employer]. The patient and I discussed the recall [...] open while sleeping. The DME company is [employer]. The patient is benefitting from CPAP therapy. [...] person. Assessment & Plan (07/01/2024 10:25 AM WEB DESIGNER): The patient continues with Lunesta 3 mg on most nights. Assessment & Plan (06/28/2023 11:58 AM WEB DESIGNER): Due to continued symptoms, the patient will continue Lunesta 3 mg nightly. I have refilled the medication and will refill for 1 year Patient is aware that she should wear her CPAP machine if taking the medication. Assessment & Plan (06/27/2022 12:02 PM WEB DESIGNER): The patient will continue with Lunesta 3 mg p.o. at bedtime to treat insomnia. Assessment & Plan (06/30/2021 11:04 AM WEB DESIGNER): The patient will continue with Lunesta 3 [...] on file Legal Sex Female 9:00 AM WEB DESIGNER Gender Identity Female 09/06/2024 3:20 PM WEB DESIGNER Sexual Orientation Not on file Last Filed [...] 01/12/2025 1:28 PM CDT Plan of Treatment Not on file Insurance [facility] [address] [place] [phone] [place] [employer] [facility] [address] [place] [phone] BLUE ACCESS CHOICE [place] [employer] CLAIM[employer] Care Teams Painter Ski Edge Relationship Specialty Start Date End Date Saul Ruelas MD PCP - General Family Medicine 08/25/20 Abiodun Red MD [address] [place] [address] Referring Physician Neurology 11/27/22 Issac Amador MD [address] [place] [address] Consulting Physician Rheumatology 07/23/24
[2025-02-06 10:55] VITALS: BP 116/75; PULSE 96; RESP 20; TEMP 36.3; O2SAT 98
--- OUTSIDE RECORDS SUMMARY | 2025-02-06 10:55 | XMS_ITS | Encounter Summary ---
Author Organization [facility] Address [address] [place] [address] Care Team Providers Care Legal Biller Name Role Phone Saul Ruelas MD Primary Care Provider [phone] Robert García MD Primary Care Provider + Encounter Details Date Type Department Care Team (Late st Contact Info) Description 10/12/2020 Prep for Procedure [facility] Interventional [place] [address] [id number] Sujey Yap NP 3 [facility] [address] [place] [phone] (Work) Social History Tobacco Use Types Packs/Day Years [...] on file Legal Sex Female 9:56 AM POSTAL TRANSPORTATION CLERK Gender Identity Not on file Sexual Orientation Not on file COVID-19 Exposure Response Date Recorded In the last month, have you been in contact with someone who was confirmed or suspected to have Coronavirus / COVID-19? No / Unsure 10/12/2020 11:29 AM CDT documented as of this encounter Functional Status documented as of this encounter Plan of Treatment Upcoming Encounters Date Type Department Care Team (Late st Contact Info) Description 02/25/2025 10:00 AM CDT Office Visit [facility] 3 [facility], [address] [place] [phone] Abiodun Red MD 3 [facility] [place] [address] 07/02/2025 2:00 PM POSTAL TRANSPORTATION CLERK Office Visit [facility] 3 [facility], [address] [place] [phone] Marine Glover APRN 3 [facility] [address] [place] [address] documented as of this encounter Visit Diagnoses Not on filedocumented in this encounter Care Teams Legal Biller Relationship Specialty Start Date End Date Saul Ruelas MD 3 [facility] [address] [place] [phone] PCP - General FAMILY PRACTICE 10/12/20 08/16/23 Robert García MD 3 [facility] [address] [place] [phone] PCP - General 08/17/23 documented as of this encounter
--- OUTSIDE RECORDS SUMMARY | 2025-02-06 10:55 | XMS_ITS | Encounter Summary ---
Author Organization [facility] Address [address] [place] [address] Care Team Providers Care Street Sweeper Operator Name Role Phone Robert García MD Primary Care Provider + Encounter Details Date Type Department Care Team (Late Contact Info) Description 01/22/2024 HeadSprout Message Enc [facility] - [address], [address] [place] [phone] [place], [facility] Provider prescription Social History Tobacco Use [...] on file Legal Sex Female 9:56 AM BELT WORKER Gender Identity Not on file Sexual Orientation Not on file documented as of this encounter Plan of Treatment Upcoming Encounters Date Type Department Care Team (Late Contact Info) Description 02/25/2025 10:00 AM CDT Office Visit [facility] - [address], [address] [place] [phone] Abiodun Red MD 3 [facility] [place] [address] 07/02/2025 2:00 PM BELT WORKER Office Visit [facility] Medical [facility] Multispecialty Care - [facility] 3 [facility], [address] [place] [address] Marine Glvoer APRN 3 [facility] [address] [place] [address] documented as of this encounter Visit Diagnoses Not on filedocumented in this encounter Additional Health Concerns Assessment Noted Time PHQ-9 Depression Total Score: 7 06/02/20 22 9:57 AM BELT WORKER documented as of this encounter Care Teams Street Sweeper Operator Relationship Specialty Start Date End Date Robert García MD 3 [facility] [address] [place] [address] PCP - General 08/17/23 documented as of this encounter
--- OUTSIDE RECORDS SUMMARY | 2025-02-06 10:55 | XMS_ITS | Encounter Summary ---
Author Organization [facility] Address [address] [place] [address] Care Team Providers Care Veterinary Attendant Name Role Phone Robert García MD Primary Care Provider + Encounter Details Date Type Department Care Team (Latest Contact Info) Description 01/01/2025 Kaai Message Enc [facility] Interventional [place] [address] [phone] [facility], [facility] Provider Pain Management Referral Social History Tobacco Use Types Packs/Day Years [...] on file Legal Sex Female 9:56 AM ESTATE TAX EXAMINER Gender Identity Not on file Sexual Orientation Not on file documented as of this encounter Plan of Treatment Upcoming Encounters Date Type Department Care Team (Late st Contact Info) Description 02/25/2025 10:00 AM CDT Office Visit [facility] Medical Group Multispecialty Care - [facility] 3 [facility], [address] [place] [phone] Abiodun Red MD 3 [place] [address] 07/02/2025 2:00 PM ESTATE TAX EXAMINER Office Visit [facility] Medical Group Multispecialty Care - [facility] 3 [facility], [address] [place] [phone] Marine Glover APRN 3 [facility] [address] [place] [address] documented as of this encounter Visit Diagnoses Not on filedocumented in this encounter Additional Health Concerns Assessment Noted Time PHQ-9 Depression Total Score: 7 06/02/20 22 9:57 AM ESTATE TAX EXAMINER documented as of this encounter Care Teams Veterinary Attendant Relationship Specialty Start Date End Date Robert García MD 3 [facility] [address] [place] [phone] PCP - General 08/17/23 documented as of this encounter
--- OUTSIDE RECORDS SUMMARY | 2025-02-06 10:55 | XMS_ITS | Encounter Summary ---
Author Organization [facility] Address [address] [place] [address] Care Team Providers Care Electronic Installer Name Role Phone Robert García MD Primary Care Provider + Encounter Details Date Type Department Care Team (Latest Contact Info) Description 12/29/2024 Results Follow-Up [facility] Medical [facility] Mult[facility]pecialty Care - [facility] 3 [facility], [address] [place] [address] Abiodun Red MD [address] [place] [address] MRI LUMB SPINE WO CON Social History Tobacco Use Types Packs/Day Years [...] on file Legal Sex Female 9:56 AM CHIEF LIBRARIAN BRANCH Gender Identity Not on file Sexual Orientation Not on file documented as of this encounter Plan of Treatment Upcoming Encounters Date Type Department Care Team (Late st Contact Info) Description 02/25/2025 10:00 AM CDT Office Visit [facility] 3 [facility], [address] [place] [phone] Abiodun Red MD 3 [facility] [place] [address] 07/02/2025 2:00 PM CHIEF LIBRARIAN BRANCH [facility] 3 [facility], [address] [place] [phone] Marine Glover APRN 3 [facility] [address] [place] [address] documented as of this encounter Visit Diagnoses Not on filedocumented in this encounter Additional Health Concerns Assessment Noted Time PHQ-9 Depression Total Score: 7 06/02/20 22 9:57 AM CHIEF LIBRARIAN BRANCH documented as of this encounter Care Teams Electronic Installer Relationship Specialty Start Date End Date Robert García MD 3 [facility] [address] [place] [phone] PCP - General 08/17/23 documented as of this encounter
--- OUTSIDE RECORDS SUMMARY | 2025-02-06 10:55 | XMS_ITS | Clinical Summary ---
Author Organization [facility] Address [address] [place] [address] Care Team Providers Care Heavy Equipment Diesel Mechanic Name Role Phone Robert García MD Primary [...] for Migraine. 16 tablet 02/22/20 22 Active methylPREDNISolon e, ROLAND, (MEDROL) 4 MG tabletIndications [...] MOUTH DAILY 30 tablet 02/23/20 23 Active busPIRone (BUSPAR) 15 MG tablet Take 1 tablet (15 mg total) by mouth 3 (three) times daily. Active erenumab-aooe (AIMOVIG) 70 mg/mL injection (autoinjector)Ind ications:Chronic migraine w/o aura w/o status migrainosus, not intractable ADMINISTER 1 ML UNDER THE SKIN EVERY 30 DAYS 1 mL 08/25/19 25 Active SUMAtriptan (IMITREX) 100 MG tabletIndications :Other migraine without status migrainosus, not intractable TAKE 1 TABLET BY MOUTH TWICE DAILY NEEDED FOR MIGRAINE. TAKE 1 TABLET BY MOUTH AT ONSET AND 1 TABLET 2 HOURS LATER. MAX OF 2 TABLETS IN 24 HOURS 16 tablet 11/07/19 25 Active QUEtiapine (SEROQUEL) 25 MG tabletIndications :Insomnia, unspecified type Take 1 tablet (25 mg total) by mouth nightly at bedtime. 30 tablet 12/05/19 25 Active QULIPTA tabletIndications :Migraine without aura, not intractable, without status migrainosus TAKE 1 TABLET(60 MG) BY MOUTH DAILY 30 tablet 11 12/18/19 25 Active Active Problems Problem Noted Date Diagnosed Date Chronic migraine without aur a without status migrainosus, not intractable 09/29/2022 Encounters Date Type Department Care Team Description 01/26/2025 Scan [facility] Scanned, [facility] 01/12/2025 Scan [facility] Scanned, [facility] 01/01/2025 MyChart Message Enc [facility] Inter[facility] Management Center [address] [place] [address] [id number] [facility] Provider Pain Management Referral 12/29/2024 Orders Only [facility] - [address], [address] [place] [phone] Abiodun Red MD 12/29/2024 Results Follow-Up [facility] - [facility] [address], [address] [place] [phone] Abiodun Red MD MRI LUMB SPINE WO CON 12/23/2024 8:17 AM CDT - 12/23/2024 11:59 PM CDT Hospital Encounter [facility] Open MRI [address] [place] [address] Abiodun Red MD Discharge Disposition: Home or Self Care (Routine Discharge) 12/23/2024 Travel 12/09/2024 Telephone [facility] - [facility] [address], [address] [place] [phone] Abiodun Red MD Prior Authorization (Qulipta) 12/03/2024 8:20 AM CDT Office Visit [facility] [address], [address] [place] [phone] Abiodun Red MD Botox Procedure (botox 155 migraines) 12/03/2024 Scan HEALTH INFO SRVCS Scanned, [facility] 12/03/2024 Telephone [facility] - [address] [place] [phone] Abiodun Red MD Information 12/03/2024 Travel 12/01/2024 [facility] [address], [address] [place] [phone] Abiodun Red MD Reschedule 11/07/2024 [facility] - [address], [address] [place] [phone] Abiodun Red MD Prior Authorization (Qulipta) from Last 3 Months Immunizations Immunization Administration Dates Next Due Influenza Adult (Generic) [...] file Legal Sex Female 9:56 AM CORPORATE FITNESS PROGRAM COORDINATOR Gender Identity Not on file Sexual Orientation Not on file Last Filed Vital Signs Vital Sign Reading Time Taken Comments Blood Pressure 119/76 12/03/2024 8:26 AM CDT Pulse 85 12/03/2024 8:26 AM CDT Temperature 36.2 C (97.2 F) 06/04/2024 9:49 AM CORPORATE FITNESS PROGRAM COORDINATOR Respiratory Rate 12 12/03/2024 8:26 AM CDT Oxygen Saturation 98% 12/03/2024 8:26 AM CDT Inhaled Oxygen Concentration - - Weight 120.2 kg (265 lb) 12/03/2024 8:26 AM CDT Height 177.8 cm (5' 10) 12/03/2024 8:26 AM CDT Body Mass Index 38.02 12/03/2024 8:26 AM CDT Plan of Treatment Upcoming Encounters Date Type Department Care Team (Late st Contact Info) Description 02/25/2025 10:00 AM CDT Office Visit [facility] - [facility] [address], [address] [place] [address] Abiodun Red MD [address] [place] [address] 07/02/2025 2:00 PM CORPORATE FITNESS PROGRAM COORDINATOR [facility] [address], [address] [place] [phone] Marine Glover APRN [address] [place] [address] Health Maintenance Due Date Last Done Comments Cervical Cancer Screening Pa p Smear (Age 30 to 64) Every 3 Years 1980 Annual Physical 1983 Hepatitis C 1998 Hepatitis B Vaccines (1 of 3 - 19+ 3-dose series) 1999 Cervical Cancer Screening Pa p with HPV Testing (Age 30 to 64) Every 5 Years 2010 Cervical Cancer Screening wi th HPV 2010 Mammogram Screening 2020 COVID-19 Vaccine (3 - 2023-2 5 season) 2024 10/21/2020, 09/28/2020 DTaP, Tdap and Td Vaccines ( 3 - Td or Tdap) 03/04/2028 03/04/2018, 05/28/2012, 04/21/2002 HPV Vaccines Completed 01/21/2007, 09/14/2006, 07/11/2006 PHQ-2 (Physician [place]) Completed 08/27/2024 Meningococcal B Vaccine Aged Out No l onger eligible based on patient's age to complete this topic Meningococcal Vaccine Aged Out No bebeto emily eligible based on patient's age to complete this topic Pneumococcal Vaccine: Pediatrics (0 to 5 Years) and At-Risk Patients (6 to 49 Years) Aged Out No longer eligible b ased on patient's age to complete this topic RSV Immunizations Under 20 Months Aged Out No longer eligible b ased on patient's age to complete this topic Procedures Procedure Name Priority Date/Time Associated Diagnosis Comments MRI LUMB SPINE WO CON Routine 12/23/2024 8:49 AM CDT Lumbosacral radiculopathy from Last 3 Months Results * MRI LUMB SPINE WO CON (12/23/2024 8:49 AM CDT) Anatomical Region Laterality Modality Spine Magnetic Resonan ce 12/29/2024 6:37 AM CDT Impressions 12/29/2024 6:46 AM CDT IMPRESSION: 1. Multilevel degenerative disc disease and facet arthropathy as described. 2. Findings are most pronounced at L3-L4 and L4-L5. 3. No acute osseous abnormalities. Referred By: ABIODUN RED Interpreted By: Virgilio Meyers DO, 12/29/2024 6:37 AM Narrative 12/29/2024 6:46 AM CDT [address] [address] EXAMINATION: MRI LUMB SPINE WO CON HISTORY: Severe lower back pain for 3 to 4 weeks. Left hip and leg pain. Lumbar radiculopathy. COMPARISON: None. TECHNIQUE: Multisequence and multiplanar MR images of the lumbar spine without the use of intravenous contrast. FINDINGS: Mild lumbar dextroscoliosis. No evidence of acute fracture or dislocation. No vertebral body height loss. The posterior elements remain aligned. There is multilevel degenerative disc disease and facet arthropathy throughout the lumbar spine. Multilevel areas of Modic type endplate degenerative marrow edema. The conus terminates at T12-L1. The cauda equina nerve roots are normally distributed. Evaluation of the individual lumbar vertebral levels is as follows: T12-L1: Disc bulge. Bilateral facet arthropathy. No spinal canal or neural foraminal stenosis. L1-L2: Mild grade 1 degenerative retrolisthesis. Disc bulge. Bilateral facet arthropathy. No spinal canal or neural foraminal stenosis. L2-L3: Grade 1 degenerative retrolisthesis. Disc bulge. Bilateral facet arthropathy. Mild spinal canal stenosis. Mild right neural foraminal stenosis. No left neural foraminal stenosis. L3-L4: Mild grade 1 degenerative retrolisthesis. Disc bulge. Central annular fissure. Bilateral facet arthropathy. Moderate spinal canal stenosis with some impingement upon the descending nerve roots. Mild bilateral neural foraminal stenosis. L4-L5: Mild grade 1 degenerative retrolisthesis. Large disc bulge. Left subarticular/foraminal disc extrusion. Severe bilateral facet arthropathy. Moderate spinal canal stenosis with some impingement upon the descending nerve roots. Mild to moderate right neural foraminal stenosis. Severe left neural foraminal stenosis. L5-S1: Disc bulge. Bilateral facet arthropathy. No spinal canal stenosis. Moderate right neural foraminal stenosis. Mild left neural foraminal stenosis. No acute-appearing paraspinous soft tissue abnormalities. There is edema in the subcutaneous fat posteriorly. The partially included portions of the abdomen and pelvis are negative for acute appearing abnormality. Procedure Note Virgilio Meyers DO - 12/29/2024 [id number] [place] [address] EXAMINATION: MRI LUMB SPINE WO CON HISTORY: Severe lower back pain for 3 to 4 weeks. Left hip and leg pain. Lumbarradiculopathy. COMPARISON: None. TECHNIQUE: Multisequence and multiplanar MR images of the lumbar spine without theuse of intravenous contrast. FINDINGS: Mild lumbar dextroscoliosis. No evidence of acute fracture ordislocation. No vertebral body height loss. The posterior elementsremain aligned. There is multilevel degenerative disc disease and facetarthropathy throughout the lumbar spine. Multilevel areas of Modic typeendplate degenerative marrow edema. The conus terminates at T12-L1. Thecauda equina nerve roots are normally distributed. Evaluation of the individual lumbar vertebral levels is as follows: T12-L1: Disc bulge. Bilateral facet arthropathy. No spinal canal orneural foraminal stenosis. L1-L2: Mild grade 1 degenerative retrolisthesis. Disc bulge. Bilateralfacet arthropathy. No spinal canal or neural foraminal stenosis. L2-L3: Grade 1 degenerative retrolisthesis. Disc bulge. Bilateral facetarthropathy. Mild spinal canal stenosis. Mild right neural foraminalstenosis. No left neural foraminal stenosis. L3-L4: Mild grade 1 degenerative retrolisthesis. Disc bulge. Centralannular fissure. Bilateral facet arthropathy. Moderate spinal canalstenosis with some impingement upon the descending nerve roots. Mildbilateral neural foraminal stenosis. L4-L5: Mild grade 1 degenerative retrolisthesis. Large disc bulge. Leftsubarticular/foraminal disc extrusion. Severe bilateral facetarthropathy. Moderate spinal canal stenosis with some impingement uponthe descending nerve roots. Mild to moderate right neural foraminalstenosis. Severe left neural foraminal stenosis. L5-S1: Disc bulge. Bilateral facet arthropathy. No spinal canalstenosis. Moderate right neural foraminal stenosis. Mild left neuralforaminal stenosis. No acute-appearing paraspinous soft tissue abnormalities. There is edemain the subcutaneous fat posteriorly. The partially included portions ofthe abdomen and pelvis are negative for acute appearing abnormality. IMPRESSION: 1. Multilevel degenerative disc disease and facet arthropathy asdescribed. 2. Findings are most pronounced at L3-L4 and L4-L5. 3. No acute osseous abnormalities. Referred By: ABIODUN RED Interpreted By: Virgilio Meyers DO, 12/29/2024 6:37 AM us Abiodun Red MD MRI Final Res ult from Last 3 Months Insurance [facility] [employer] [employer] [facility] Care Teams Heavy Equipment Diesel Mechanic Relationship Specialty Start Date End Date Robert García MD [address] [address] [place] [address] PCP - General 08/17/23
--- NOTE | 2025-02-06 11:14 | ECG_ITS ---
Test Date: 2025-02-06 11:20:29 Measurements Intervals [place] Rate: 92 P: 52 NC: 153 QRS: 54 QRSD: 106 T: 16 QT: 371 QTc: 460 Interpretive Statements SINUS RHYTHM NONSPECIFIC T-WAVE ABNORMALITY Compared to ECG 09/30/2024 09:28:42 No significant changes Electronically Signed On 02-07-2025 18:35:43 CDT by Cesar Guevara M.D.
--- NOTE | 2025-02-06 11:19 | ED_ITS ---
HPI - URI/Sore Throat General Chief Complaint: Upper Respiratory Infection Stated Complaint: sweating/light headed/exhaustion Time Seen by Provider: 02/06/25 11:00 Source: patient and RN notes reviewed Mode of arrival: ambulatory Limitations: no limitations History of Present Illness HPI Narrative: 44-year-old female presents Express Care complaining of cough, chills, sweats, lightheadedness, nausea for approximately 6 days. Patient is any fevers, body aches, dizziness or loss of consciousness, congestion, runny nose, earache, sore throat. Patient also reports that she developed chest tightness this morning after trying to do exercises for her right shoulder pain. Patient reports a tightness throughout her entire chest that is worse with a deep breath. Patient also reports coughing up dark red sputum. Patient denies any chest pain currently. Patient had a chest pain with exertion. Patient denies any shortness of breath, vision changes, slurred speech, or any other symptoms. Patient has a history of a CVA speech problem because of it. Patient has a history of hypertension hyperlipidemia. Patient recently had surgery on her left foot is currently in a walking boot. Related Data Home Medications ?Medication ?Instructions ?Recorded ?Confirmed ?Last Taken ?Type aspirin 81 mg tablet,delayed 81 mg PO DAILY 11/21/22 01/08/25 10/21/24 History release (Adult Aspirin Regimen) atorvastatin 40 mg tablet (Lipitor) 40 mg PO DAILY 11/21/22 01/08/25 10/22/24 History buprenorphine 8 mg-naloxone 2 mg 1 tablet sublingual TID 11/21/22 01/08/25 10/22/24 History sublingual tablet buspirone 15 mg tablet 15 mg PO DAILY 11/21/22 01/08/25 10/23/24 History duloxetine 60 mg capsule,delayed 60 mg PO DAILY 11/21/22 01/08/25 10/23/24 History release fexofenadine 180 mg tablet 180 mg PO DAILY 11/21/22 01/08/25 10/22/24 History (Robyn Allergy) levothyroxine 137 mcg tablet 137 mcg PO DAILY 11/21/22 01/08/25 10/23/24 History (Synthroid) mometasone 50 mcg/actuation nasal 2 spray intranasal DAILY PRN 11/21/22 01/08/25 10/22/24 History spray Shortness Of Breath Or Wheezing mv-mn-folic 200 mcg-vit K 15 1 cap PO BID 11/21/22 01/08/25 10/20/24 History mcg-lutein 5 mg-zeaxanthin 1 mg capsule (PreserVision AREDS 2 Plus Multivit) omeprazole 20 mg capsule,delayed 20 mg PO DAILY 11/21/22 01/08/25 10/22/24 History release pilocarpine HCl 5 mg tablet 5 mg PO TID 11/21/22 01/08/25 10/22/24 History pregabalin 150 mg capsule (Lyrica) 150 mg PO BID 11/21/22 01/08/25 10/23/24 History sumatriptan succinate 100 mg tablet See Rx Instructions PO .COMPLEX 11/21/22 01/08/25 Unknown History topiramate 50 mg tablet (Topamax) 50 mg PO TID 11/21/22 01/08/25 10/22/24 History atogepant 60 mg tablet (Qulipta) 60 mg PO DAILY 06/13/24 01/08/25 10/22/24 History cyclobenzaprine 10 mg tablet 10 mg PO TID 06/13/24 01/08/25 10/22/24 History erenumab-aooe 70 mg/mL 70 mg subcut DIRECTED 06/13/24 01/08/25 Unknown History subcutaneous auto-injector (Aimovig Autoinjector) trazodone 100 mg tablet 100 mg PO DIRECTED PRN insomnia 06/13/24 01/08/25 Unk nown History lidocaine 1.8 % topical patch 1 patch topical DAILY 06/26/24 01/08/25 Unknown History omega 8-yjo-qox-fish oil 60 mg-90 1 cap PO DAILY 06/26/24 01/08/25 10/20/24 History mg-500 mg capsule (Fish Oil) Allergies Allergy/AdvReac Type Severity Reaction Status Date / Time No Known Allergies Allergy Verified 02/06/25 10:50 Review of Systems Review of Systems: CONSTITUTIONAL: Denies fever. Positive for chills sweats. EYES: Denies visual changes, redness, or discharge. ENT: Denies rhinorrhea, congestion, sore throat, or otalgia. CARDIOVASCULAR: Denies chest pain with exertion, palpitations, dizziness, or edema. Positive for lightheadedness. RESPIRATORY: Positive for cough. Negative for dyspnea, wheezing, orthopnea. GASTROINTESTINAL: Denies abdominal pain, vomiting, or diarrhea. Positive for nausea. GENITOURINARY: Denies dysuria, frequency, hesitancy, or hematuria. SKIN: Denies rash or itching. MUSCULOSKELETAL: Denies back pain, joint pain, or myalgia. NEUROLOGIC: Denies headache, numbness, or weakness. PSYCHIATRIC: Denies anxiety or depression. All other systems reviewed are negative, except as documented in HPI. [facility] Past Medical History Medical History Radial head fracture, closed Distal radius fracture, right Thompson's neuroma of right foot (~2016) Abdominal hernia (~2011) Previous gastric bypass complicating , antepartum (~2007) Surgical History Surgical History Hx of cholecystectomy (~2009) History of (~2007) Family History Family History Unknown Hypertension Depression Diabetes mellitus Cerebrovascular accident Social History Social History Smoking status: Never smoker Alcohol intake: never Substance use: never Substance use type: does not use Do You Feel Safe in your Home?: Yes Lack of Transportation: No Lack of Food: Never True Current Housing: I Have Housing Concerned About Future Housing: No Difficulty Paying Gas/Electric Bills: No Difficulty Paying for Meds: No Currently Unemployed: No Education: Associate Degree Difficulty w/ Childcare or Family Care: No Living arrangements: with family Occupation/Education: occupation 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 There is no relevant family history pertinent to the patient complaint. Exam Narrative: GENERAL: This is a well-nourished, well-developed adult, in no apparent distress. They are non ill-appearing, nontoxic appearing. HEAD: normocephalic, atraumatic. EYES: Sclera clear/white. Conjunctiva normal. Vision is grossly intact. Extraocular movements intact. Pupils PERRLA EARS: External ears normal, auditory canals clear and without drainage, TMs normal without perforation. Hearing grossly intact. NOSE: External nose normal with no obvious nasal discharge, nasal turbinates erythematous without swelling, no rhinorrhea. THROAT: Mucous membranes moist, posterior pharynx clear, without erythema or swelling. Uvula midline. Postnasal drip present. NECK: Neck supple, non-tender without lymphadenopathy, masses or thyromegaly. CARDIOVASCULAR: Regular rate and rhythm without murmurs, gallops, or rubs. RESPIRATORY: Clear to auscultation. Breath sounds equal bilaterally. No wheezes, rales, or rhonchi. SKIN: warm, Dry, intact with no suspicious lesions or rash, good texture and turgor. NEURO: awake, alert, and oriented to person, place and time. There were no obvious focal neurologic abnormalities. EXTREMITIES: No joint tenderness, effusion, or edema noted. Course Course Emergency Course: Portions of this record may have been created with voice recognition software Level of Care: Express Care Visit Vital Signs Vital signs: Vital Signs Temperature 97.4 F L 02/06/25 10:55 Pulse Rate 96 02/06/25 10:55 Respiratory Rate 20 02/06/25 10:55 Blood Pressure 116/75 02/06/25 10:55 Pulse Oximetry 98 02/06/25 10:55 Oxygen Delivery Room Air 02/06/25 10:55 Temperature 97.4 F L 02/06/25 10:55 Pulse Rate 96 02/06/25 10:55 Respiratory Rate 20 02/06/25 10:55 Blood Pressure 116/75 02/06/25 10:55 Pulse Oximetry 98 02/06/25 10:55 Oxygen Delivery Room Air 02/06/25 10:55 Reviewed MDM - URI/Sore Throat MDM Narrative Medical decision making narrative: Rapid COVID and flu were negative. EKG shows sinus rhythm without ischemic findings. Chest pain appears to be pleuritic in nature. Chest x-ray obtained showed right perihilar pneumonia. Patient denies any chest tightness currently left she takes it. [place] heart score 1. Low suspicion for CAD or ACS. Patient's symptoms likely coming from pneumonia. Will go ahead and treat her with Augmentin and azithromycin. Offered patient ER transfer for further evaluation and testing and she declined. Patient is hemodynamically stable, no apparent distress, no respiratory distress, she is appropriate for outpatient treatment and follow-up. Discussed physical exam findings. Advised supportive measures and signs/symptoms to go to the ER. Differential Diagnosis Differential diagnosis: Likely upper respiratory infection and other (Pneumonia, ACS, arrhythmia, viral infection) Lab Data Attestation: I reviewed the patient's lab results. Labs: Lab Results 02/06/25 Range/Units 11:22 POC Influenza A Ag Negative (Negative) POC Influenza B Ag Negative (Negative) POC SARS CoV-2 Ag Negative (Negative) ECG Data EKG #1: ECG completion date: 02/06/25 ECG completion time: 11:20 Prior ECG tracings: not available for review EKG Interpretation: normal rate, sinus rhythm, no ectopy, no ST changes, normal QRS, normal QT, NL axis and no acute changes Critical Care Time Critical Care Time Critical Care Time: No Discharge Plan Discharge Clinical Impression: Pneumonia Qualifiers: Pneumonia type: due to unspecified organism Laterality: right Lung location: middle lobe of lung Qualified Code(s): J18.9 - Pneumonia, unspecified organism Patient Disposition: Home Condition: Stable Instructions: Antibiotic Form, Pneumonia (ED) Additional Instructions: Your EKG is a sinus rhythm with no signs of a heart attack. Your chest x-ray shows right-sided middle lobe pneumonia. Your COVID and flu were negative today. Take Augmentin as directed. Take azithromycin as directed. Please take both antibiotics and complete the course completely. Rest and drink plenty of fluids. You may take Tylenol or ibuprofen as needed for pain or fevers, follow instructions on the bottle. Follow-up with PCP in 3-5 days. If he develops worsening chest pains, difficulty breathing, shortness of breath, worsening fevers, weakness, nausea, vomiting, or any other serious concerns please go to the ER immediately. Patient Language: Mohawk Prescriptions: New azithromycin 250 mg tablet See Rx Instructions .ROUTE .COMPLEX Qty: 6 0RF Rx Instructions: For 250 mg dose pack: take 500 mg today (day 1), then 250 mg for 4 days (days 2-5) amoxicillin-pot clavulanate 875-125 mg tablet 1 tablet PO Q12H 5 Days Qty: 10 0RF No Action cyclobenzaprine 10 mg tablet 10 mg PO TID trazodone 100 mg tablet 100 mg PO DIRECTED PRN (Reason: insomnia) Aimovig Autoinjector 70 mg/mL auto-injector 70 mg SUBCUT DIRECTED Qulipta 60 mg tablet 60 mg PO DAILY levothyroxine [Synthroid] 137 mcg tablet 137 mcg PO DAILY omeprazole 20 mg capsule,delayed release(DR/EC) 20 mg PO DAILY mometasone 50 mcg/actuation spray,non-aerosol 2 spray intranasal DAILY PRN (Reason: Shortness Of Breath Or Wheezing) Rx Instructions: administer into each nostril topiramate [Topamax] 50 mg tablet 50 mg PO TID sumatriptan succinate 100 mg tablet See Rx Instructions PO .COMPLEX Rx Instructions: take 1 tab at onset of headache; if no relief, may repeat 1 tab after at least 2 hrs; max = 2 tabs/24 hrs PO fexofenadine [Robyn Allergy] 180 mg tablet 180 mg PO DAILY atorvastatin [Lipitor] 40 mg tablet 40 mg PO DAILY pregabalin [Lyrica] 150 mg capsule 150 mg PO BID aspirin [Adult Aspirin Regimen] 81 mg tablet,delayed release (DR/EC) 81 mg PO DAILY buprenorphine-naloxone 8-2 mg tablet, sublingual 1 tablet sublingual TID pilocarpine HCl 5 mg tablet 5 mg PO TID PreserVision AREDS 2 Plus MV 200 mcg-15 mcg- 5 mg-1 mg capsule 1 cap PO BID duloxetine 60 mg capsule,delayed release(DR/EC) 60 mg PO DAILY buspirone 15 mg tablet 15 mg PO DAILY omega 1-maj-ufx-fish oil [Fish Oil] 60-90-500 mg capsule 1 cap PO DAILY lidocaine 1.8 % adhesive patch,medicated 1 patch topical DAILY Rx Instructions: leave on most painful area for up to 12 hrs nebivolol [Bystolic] 5 mg tablet 5 mg PO DAILY Qty: 30 5RF ondansetron 4 mg tablet,disintegrating 4 mg PO Q8H PRN (Reason: nausea and vomiting) Qty: 30 0RF meloxicam 15 mg tablet 15 mg PO DAILY Qty: 30 1RF Follow-up/Referrals: UNKNOWN,DOCTOR [Primary Care Provider] - Time of Disposition: 11:54
[2025-02-06 11:24] LABS: EDCOVIDSCREEN Negative (Negative); EDINFLUASCREEN Negative (Negative); EDINFLUBSCREEN Negative (Negative)
== END 2025-02-06 12:02 | disposition home or self-care (01) ==
DX: J18.9 Pneumonia, unspecified organism (principal); Z20.822 Contact with and (suspected) exposure to COVID-19; I69.328 Other speech and language deficits following cerebral infarction; I10 Essential (primary) hypertension; E78.5 Hyperlipidemia, unspecified; Z79.82 Long term (current) use of aspirin
CPT/HCPCS: 71046; 87426; 87804; 93005; 99213; G0463

== ENCOUNTER 2025-02-10 12:06 | Emergency (ER) | payer BC, OTHER, SELFPAY ==
[2025-02-10] VITALS (17 sets, daily range): BP systolic 105–127; BP diastolic 68–94; PULSE 105–126; RESP 13–28; TEMP 36.6; O2SAT 90–100
--- NOTE | ~2025-02-10 | XR_ITS ---
CHEST RADIOGRAPH, PA AND LATERAL CLINICAL HISTORY: SOB . COMPARISON: 02/06/2025 TECHNIQUE: PA and lateral views of the chest. FINDINGS The cardiomediastinal silhouette is partially obscured. Interval development of a large right-sided dense pleural effusion, nearly encompassing the entirety of the right hemithorax. The left hemithorax is clear. IMPRESSION: Interval development of a large right-sided dense pleural effusion when compared with previous examin ation performed 4 days earlier. Cross-sectional imaging (noncontrast enhanced CT examination of the chest) is suggested if the patien t is clinically able. Reviewed, dictated and finalized at location A. IMPRESSION: Interval development of a large right-sided dense pleural effusion when compare d with previous examination performed 4 days earlier. Cross-sectional imaging (noncontrast enhanced CT examination of the chest) is s uggested if the patient is clinically able.
--- NOTE | ~2025-02-10 | CT_ITS ---
CLINICAL INDICATION: Pleural effusion COMPARISON: Reference was made to a film evaluation of the chest on the same day, approximately 2 nakul rs earlier. TECHNIQUE: Multiple contiguous axial images of the chest was performed following the administration o f intravenous contrast. This CT examination was performed utilizing dose reduction techniques. DLP: 357 mGy-cm FINDINGS/OBSERVATIONS: LUNG: Patient of a large right-sided pleural effusion, with multiple foci of air presumably post thoracente sis evaluation The effusion is partially loculated along its caudal-most border as well as within the lateral margin of the right upper lobe. Partial attenuation of the right descending pulmonary bronchus. The right upper lobe bronchus as well as the bronchus intermedius are patent. The left hemithorax is clear. HEART: The heart is of normal size, without pericardial effusion. MEDIASTINUM: A prominent right paratracheal lymph node is identified measuring 11 mm in short axis di mension. No pathologically enlarged or morphologically suspicious lymph nodes are identified within the remain pau of the mediastinum, bilateral axilla, within the soft tissues of the anterior chest wall. SOFT TISSUES OF THE CHEST: Unremarkable. BONES OF THE CHEST: No acute fracture. No lytic or blastic lesions are identified. IMPRESSION: Partially loculated right-sided pleural effusion with attenuation of the right lower lobe bronchus fo r which direct visualization is recommended. An infectious source is suspected, rather than malignancy for which follow-up to resolution is recomm ended. Reviewed, dictated and finalized at location A. IMPRESSION: Partially loculated right-sided pleural effusion with attenuation of the right lower lobe bronchus for which direct visualization is recommended. An infectious source is suspected, rather than malignancy for which follow-up t o resolution is recommended.
--- NOTE | ~2025-02-10 | XR_ITS ---
EXAMINATION: [id number] Exam Date/Time: 02/10/2025 16:53 CDT HISTORY: post thoracentesis Comparison: Same date at 1:16 PM; CT chest 02/10/2025. RESULT: Lines, tubes, and devices: Atrial occlusion device. Cholecystectomy clips. Lungs and pleura: Hazy right lower lung opacification, with subsegmental areas of consolidation. Lar jarrett unchanged right costophrenic angle blunting and fissural fluid when compared to the nut orchardist view o f the prior CT. Cardiomediastinal silhouette: Stable. Other: No acute osseous or upper abdominal finding. IMPRESSION: No radiographic evidence of pneumothorax. Large right pleural effusion, with adjacent atelectasis/con solidation. Reviewed, dictated and finalized at location K. IMPRESSION: No radiographic evidence of pneumothorax. Large right pleural effusion, with ad jacent atelectasis/consolidation.
--- NOTE | ~2025-02-10 | US_ITS ---
EXAMINATION: US thoracentesis DATE: 02/10/2025 17:20 INDICATION: Right pleural effusion TECHNIQUE: The procedure and its risks and benefits were discussed with the patient. Potential risks discussed included bleeding, infection, and pneumothorax. The patient understood the risks and agreed to proceed. The skin was prepped and draped in sterile fashion. 1% lidocaine was used for local anes thesia. Under ultrasound guidance, a 5 Fr catheter with trochar was advanced into the right pleural e ffusion. Fluid was aspirated. The catheter was removed, and a dressing was applied. There were no imm ediate complications. FINDINGS: Ultrasound images demonstrate a moderate-sized complex right pleural effusion with hypoechoic debris and echogenic internal septations. Real-time imaging demonstrated the catheter within the fluid. IMPRESSION: 1. Successful ultrasound-guided thoracentesis yielding 100 mL of cloudy yellow fluid. Reviewed, dictated and finalized at location A.
--- OUTSIDE RECORDS SUMMARY | 2025-02-10 12:09 | XMS_ITS | Encounter Summary ---
Author Organization [facility] Address [address] [place] [address] Care Team Providers Care Camera Prototyping Engineer Name Role Phone Saul Ruelas MD Primary Care Provider [phone] Robert García MD Primary Care Provider + Encounter Details Date Type Department Care Team (Late st Contact Info) Description 10/12/2020 Prep for Procedure [facility] [place] [address] [id number] Sujey Yap NP 3 [facility] [address] [place] [phone] (Work) Social History Tobacco Use Types Packs/Day [...] on file Legal Sex Female 9:56 AM HOSPICE MUSIC THERAPY Gender Identity Not on file Sexual Orientation [...] Description 02/25/2025 10:00 AM CDT Office Visit [facility] 3 [facility], [address] [place] [phone] Abiodun Red MD 3 [place] [address] 07/02/2025 2:00 PM HOSPICE MUSIC THERAPY Office Visit [facility] 3 [facility], [address] [place] [phone] Marine Glover APRN 3 [facility] [address] [place] [address] documented as of this encounter Visit Diagnoses Not on filedocumented in this encounter Care Teams Camera Prototyping Engineer Relationship Specialty Start Date End Date Saul Ruelas MD 3 [facility] [address] [place] [phone] PCP - General FAMILY PRACTICE 10/12/20 08/16/23 Robert García MD 3 [facility] [address] [place] [phone] PCP - General 08/17/23 documented as of this encounter
--- OUTSIDE RECORDS SUMMARY | 2025-02-10 12:09 | XMS_ITS | Clinical Summary ---
Author Organization [facility] Care Team Providers Care Project Management Advisor Name Role Phone Unavailable Primary Care Provider [...] Virus (HCV) Screening 1980 TdaP Immunization 1980 Human Papillomavirus (HPV) Immunization (1 - 3-dose series) 1995 Hepatitis B Immunization (1 of 3 - 19+ 3-dose series) 1999 Pap Smear 2001 Cervical Cancer Screening (CCS) 2010 HPV/Cotest 2010 SARS-COV-2 Immunization ( season) 2024 10/21/2020, 09/28/2020 Influenza Immunization (#1) 2025 06/04/2020 Respiratory Syncytial Virus (RSV) Immunization (Adult) (1 [...]
--- OUTSIDE RECORDS SUMMARY | 2025-02-10 12:09 | XMS_ITS | Referral Summary ---
Author Organization [address] Address [address] [place] [address] Care Team Providers Care Lumber Inspector Name Role Phone Saul Ruelas MD Primary Care Provider [phone] Abiodun Red MD Unavailable [phone] Issac Amador MD Unavailable [phone] Encounters Date Type Department Care Team Description 01/12/2025 1:30 PM CDT Office Visit [facility] [place] [address] [place] [address] [place] [phone] Kelly Jeronimo NP TONY (obstructive sleep apnea) (Primary Dx); Primary insomnia 11/25/2024 11:15 AM CDT Office Visit [address] [address] Vicenta Early PA Sicca complex [...] is currently on suboxone through pain management. [place] some relief with meloxicam so will resume [...] needed. Assessment & Plan (09/01/2024 12:03 PM RIGGING HELPER): 44-year-old female with PMHx of HTN, [...] dosing due to hx GERD. Will contact moving van driver for records. Follow up in 2 weeks. Sooner if needed. Seen with Dr. Amador. TONY (obstructive sleep apnea) 10/05/2020 Assessment & Plan (01/12/2025 2:03 PM CDT): The patient is intolerant of higher CPAP pressures, she will continue CPAP at 8 cm water pressure. She is aware that her AHI is elevated. DME adapt Assessment & Plan (07/01/2024 10:25 AM RIGGING HELPER): Patient continue with CPAP at 8 cm water pressure while sleeping. She was intolerable of higher pressures in the past. DME is adapt. Assessment & Plan (06/28/2023 11:59 AM RIGGING HELPER): Due to continued symptoms, the patient will continue CPAP at 8 cm water pressure. The patient has an elevated AHI, however she is intolerant of higher pressure. Denied need for supplies. DME adapt Assessment & Plan (06/27/2022 12:02 PM RIGGING HELPER): Patient continue to wear CPAP at 8 cm water pressure while sleeping. Her DME is adapt. The patient did not tolerate an increase in her pressures in the past. Assessment & Plan (06/30/2021 11:05 AM RIGGING HELPER): Patient continue to wear CPAP at [...] masks. The patient denied need for supplies. [employer]. The patient and I discussed the recall [...] open while sleeping. The DME company is [employer]. The patient is benefitting from CPAP therapy. [...] person. Assessment & Plan (07/01/2024 10:25 AM RIGGING HELPER): The patient continues with Lunesta 3 mg on most nights. Assessment & Plan (06/28/2023 11:58 AM RIGGING HELPER): Due to continued symptoms, the patient will continue Lunesta 3 mg nightly. I have refilled the medication and will refill for 1 year Patient is aware that she should wear her CPAP machine if taking the medication. Assessment & Plan (06/27/2022 12:02 PM RIGGING HELPER): The patient will continue with Lunesta 3 mg p.o. at bedtime to treat insomnia. Assessment & Plan (06/30/2021 11:04 AM RIGGING HELPER): The patient will continue with Lunesta [...] on file Legal Sex Female 9:00 AM RIGGING HELPER Gender Identity Female 09/06/2024 3:20 PM RIGGING HELPER Sexual Orientation Not on file Last [...] Plan of Treatment Not on file Insurance [facility] [address] [place] [address] [employer] [facility] [address] [place] [address] BLUE ACCESS [place] [employer] Care Teams Lumber Inspector Relationship Specialty Start Date End Date Saul Ruelas MD PCP - General Family Medicine 08/25/20 Abiodun Red MD 3 [place] [address] Referring Physician Neurology 11/27/22 Issac Amador MD [address] [place] [address] Consulting Physician Rheumatology 07/23/24
--- OUTSIDE RECORDS SUMMARY | 2025-02-10 12:09 | XMS_ITS ---
Author Organization [facility] Address [address] [place], [place] [address] Care Team Providers Care Taximeter Repairer Name Role Phone KENYON FORREST Unavailable [phone] Darci Woody Unavailable Unavailable Allergies Allergen (clinical [...] [facility] [address] [place], [place] [phone] 02/05/2025 KENYON FORREST Tendinitis of right foot [...] SPIVEY, 02/19/2025 08:40:00 AM, [address], [facility], [place], [place], [id number], Progress Notes * ANGELICA BLACK LDOB: 0 (44 yo F)Acc No.[id number]:02/05/2025 Patient: Michael ANGELICA VIDALES Estefany Provider: Kan Forrest DPM :1980 A ge:44 Y S ex:Female Date:02/05/2025 Address:[address] , [facility] Subjective: * Chief Complaints: * 1 . *Fracture check w/xrays. * HPI: H [facility] [...] Electronic signature of KENYON FORREST DPM on 02/10/2025 at 12:09 PM CDT Sign off status: Pending * Provider: Kan Forrest DPM Date: 02/05/2025 Generated for Dalia grace/Valeri/Mary on: 02/10/2025 12:09 PM CDT History and Physical Notes * [...]
--- OUTSIDE RECORDS SUMMARY | 2025-02-10 12:09 | XMS_ITS | Data Portability ---
Author Organization [place] [facility] OFFICE Address [address] [place] [address] Care Team Providers Care Gas Or Petroleum Operator Name Role Phone TAMI [facility] Primary Care Provider Assessment Encounter Date Assessment Date Assessment LastModified by Organization Details LastModified Time 02/06/2023 02/06/2023 This document was scribed by FARAZ Hayes [email or web address] Not available 02/06/2023 18:34:10 06/04/2023 06/04/2023 Patient Examined by FARAZ Hayes, Also Documentation reviewed and approved by supervising physician sophie Not available 06/04/2023 10:15:45 12/06/2023 12/06/2023 Patient Examined by FARAZ aHyes, Also Documentation reviewed and approved by supervising physician sharad Not available 10/14/2023 16:03:12 Plan of Treatment Reminders Order Date Submit Date Provider Last Modified By Organization Details Last Modified Time Details Appointments None recorded. Lab None recorded. Referral None recorded. Procedures None recorded. Surgeries None recorded. Imaging None recorded. Medication Orders Zetia 10 mg tablet 2022 023 [facility], [address] [place] [address], [address], 10:27:07 Lipitor 80 mg tablet 2022 023 [id number], [address], [place], [id number], 3 10:27:11 Bystolic 5 mg tablet 2022 023 [facility], [address] [place] [address], [address], 10:27:08 Lasix 40 mg tablet 2022 023 [facility], [address] [place] [address], [address], 3 10:27:08 Lasix 20 mg tablet 2022 023 [id number], [address], [place], [id number], 18:37:03 Patient TargetsNo targets recorded. Patient Instructions Encounter Date Encounter Id Patient Instructions Last Modified By Organization Details Last Modified Time 06/04/2023 [id number] Low cholesterol diet advised Low sodium diet advised. [email or web address] Not available 06/04/2023 10:26:59 12/06/2023 [id number] Low cholesterol diet advised Low sodium diet [...] ardio gram No observ ation record ed. [facility] [address] [facility] [address], [place], [address], 08/05/2023 14:55:01 12/11/19 24 12/06/2023 elect julianne diogr am No observ ation record ed. [email or web address] Not Available 2023 18:13:40 11/19/20 24 06/03/2024 ashwin lozagr am No observ ation record ed. [email or web address] Not Available 2023 18:04:05 Result Notes None recorded. Problems Name Problem SNOMED Code Status Onset Date Resolution Date Notes Provider Name and Address Organization Details Recorded Time Edema 175764959 Active 2022 Cooper Mesto null, [place] - [facility] 3 12:39:45 Atypical chest pain 897758549 Active 2022 Cooper Mesto null, [place] - [facility] 3 12:39:54 Dyspnea on exertion 94480506 Active 2022 Cooper Mesto null, [facility] 3 12:40:00 Dyslipidemia 447664780 Active 2023 Cooper Eveliato null, [place] - [facility] 4 19:58:53 Essential hypertension 07473379 Active 2023 [facility] 4 19:59:11 History of cerebrovascula r accident 876055399 Active 2023 [facility], [place] - [facility] 4 19:59:27 Problem Notes None recorded. Procedures Surgical History Date Name Laterality Status Provider Name and Address Organization Details Recorded Time operation on stomach completed Cooper Messally [facility] 05/25/2023 12:52:55 Imaging Results None recorded. Procedure [...] Updated DateTime 4 177.8 cm 41.1 kg/m2 957149. 93 g 76 /min 97 % 97 % 108/72 mm[Hg] Kady Ambrocio [facility] 4 10:18:10 Date Recorded Body height Body mass index (BMI) Body weight Heart rate Respiratory rate Oxygen saturation Oxygen saturation in Arterial blood by Pulse oximetry Provider Name and Address Organization Details Last Updated DateTime 3 177.8 cm 45.6 kg/m2 977016. 37 g 102 /min 18 /min 93 % 93 % Zen Roche [facility] 3 18:10:41 Date Recorded Body height Body mass index (BMI) Body weight Heart rate Oxygen saturation Oxygen saturation in Arterial blood by Pulse oximetry Systolic And Diastolic Provider Name and Address Organization Details Last Updated DateTime 4 177.8 cm 40.3 kg/m2 159017. 46 g 107 /min 95 % 95 % 151/97 mm[Hg] Fay Carrero [facility] 4 11:41:36 Date Recorded Body height Heart rate Oxygen saturation Oxygen saturation in Arterial blood by Pulse oximetry Body mass index (BMI) Body weight Systolic And Diastolic Provider Name and Address Organization Details Last Updated DateTime 3 177.8 cm 84 /min 87 % 87 % 42.9 kg/m2 265693. 12 g 139/86 mm[Hg] Fay Carrero [facility] 3 09:40:23 Social History None recorded. Functional Status None recorded. Mental Status None recorded. Family History Nothing Reported. Medical History No medical history recorded. Gynecological HistoryNo gynecological history recorded. Obstetrics History GPAL:G 0 P 0 0 0 0 Past Encounters Encounter ID Performer Location Encounter Start Date Encounter Closed Date Diagnosis/Indication Diagnosis SNOMED-CT Code Diagnosis ICD10 Code Diagnosis Note [id number] Sixto Feldman MD [place] OFFICE [facility] [place] [address] 02/06/2023 17:16:06 02/06/2023 18:36:32 Edema 726444521 R60.9 will start lasix 20 mg dailywe might consider jardiance in the future Atypical chest pain 1025 43847 R07.89 Treadmill Myoview Stress test, has high Herbster Risk score. Has Known CAD, or CAD risk equivalent . To look for any ischemia. Dyspnea on exertion 6084 5006 R06.09 will do echo to the see the structure of the heart [id number] Sixto Feldman MD [place] [facility] [place] [address] 06/04/2023 09:27:03 06/04/2023 10:31:41 Edema 323732391 R60.9 continue lasix 40 mg dailywe might consider jardiance in the future Dyspnea on exertion 6084 5006 R06.09 will do echo to the see the structure of the heart Atypical chest pain 1025 34082 R07.89 negative stress test 3contin ue with monitoring continue with baby aspirin Dyslipidemia 565922958 E 78.5 *Last LDL was 107 done on 03/29/23.P t takes lipitor 80 mg daily.will start her on zetia 10 mg dailyTG Is 223 done 03/2023 add fish oil BID daily Essential hypertension 90745727 I10 BP mildly elevated today, she will bring number with her next timecontin ue with bystolic 5 mg daily History of cerebrovascular accident 235859287 Z86.73 continue with aspirin [id number] Sixto Feldman MD [place] [facility] [address] [place] [address] 12/06/2023 10:00:34 12/06/2023 10:41:39 Edema 736196504 R60.9 continue lasix 40 mg daily Dyslipidemia 517245088 E 78.5 *Last LDL was 107 done on 03/29/23.P t takes lipitor 80 mg daily.cont inue with zetia 10 mg dailyTG Is 223 done 03/2023 continue fish oil BID dailyrepea t lipid panel Essential hypertension 44331762 I10 BP is well controlled continue with bystolic 5 mg daily History of cerebrovascular accident 940103175 Z86.73 continue with aspirin [id number] Sixto Feldman MD [place] [facility] [address] [place] [address] 06/03/2024 11:18:39 06/03/2024 12:28:23 Edema 824159973 R60.9 continue lasix 40 mg daily Dyslipidemia 885385217 E 78.5 *Last LDL was 107 done on 03/29/23.P t takes lipitor 80 mg daily.cont inue with zetia 10 mg dailyTG Is 223 done 03/2023 continue fish oil BID dailyrepea t lipid panel Essential hypertension 81744172 I10 BP is well controlled continue with bystolic 5 mg daily History of cerebrovascular accident 980607950 Z86.73 continue with aspirin Health Concerns Section Related Observation LastModified by Organization Detai ls LastModified Time None Recorded Concern Status LastModified by Organization Details LastModified Time None Recorded Advance Directives Directive None Recorded Payers Insurance Date Sequence Insurance Name Policy Number Policy Wilks Covered Member ID Wilks Member ID Guarantor Name 06/03/2024 2 [employer] () Holly Guardado [id number] Holly Guardado 01/29/2025 1 [place] [id number] Damir Guardado [id number] Holly Guardado OBGyn Episode No OBEpisode recorded.
--- OUTSIDE RECORDS SUMMARY | 2025-02-10 12:09 | XMS_ITS | Clinical Summary ---
Author Organization [address] Address [address] [place] [address] Care Team Providers Care Machine Cementer Name Role Phone Saul Ruelas MD Primary Care Provider [phone] Abiodun Red MD Unavailable [phone] Issac Amador MD Unavailable [phone] Allergies No known active allergies Medications [...] is currently on suboxone through pain management. [place] some relief with meloxicam so will resume [...] needed. Assessment & Plan (09/01/2024 12:03 PM PEDIATRIC CRITICAL CARE NURSE): 44-year-old female with PMHx of HTN, HLD, [...] dosing due to hx GERD. Will contact wall covering installer for records. Follow up in 2 weeks. Sooner if needed. Seen with Dr. Amador. TONY (obstructive sleep apnea) 10/05/2020 Assessment & Plan (01/12/2025 2:03 PM CDT): The patient is intolerant of higher CPAP pressures, she will continue CPAP at 8 cm water pressure. She is aware that her AHI is elevated. DME adapt Assessment & Plan (07/01/2024 10:25 AM PEDIATRIC CRITICAL CARE NURSE): Patient continue with CPAP at 8 cm water pressure while sleeping. She was intolerable of higher pressures in the past. DME is adapt. Assessment & Plan (06/28/2023 11:59 AM PEDIATRIC CRITICAL CARE NURSE): Due to continued symptoms, the patient will continue CPAP at 8 cm water pressure. The patient has an elevated AHI, however she is intolerant of higher pressure. Denied need for supplies. DME adapt Assessment & Plan (06/27/2022 12:02 PM PEDIATRIC CRITICAL CARE NURSE): Patient continue to wear CPAP at 8 cm water pressure while sleeping. Her DME is adapt. The patient did not tolerate an increase in her pressures in the past. Assessment & Plan (06/30/2021 11:05 AM PEDIATRIC CRITICAL CARE NURSE): Patient continue to wear CPAP at 8 [...] patient denied need for supplies. DME company [email or web address]. The patient and I discussed the [...] her mouth coming open while sleeping. The [employer] company is [employer]. The patient is benefitting from CPAP therapy. [...] person. Assessment & Plan (07/01/2024 10:25 AM PEDIATRIC CRITICAL CARE NURSE): The patient continues with Lunesta 3 mg on most nights. Assessment & Plan (06/28/2023 11:58 AM PEDIATRIC CRITICAL CARE NURSE): Due to continued symptoms, the patient will continue Lunesta 3 mg nightly. I have refilled the medication and will refill for 1 year Patient is aware that she should wear her CPAP machine if taking the medication. Assessment & Plan (06/27/2022 12:02 PM PEDIATRIC CRITICAL CARE NURSE): The patient will continue with Lunesta 3 mg p.o. at bedtime to treat insomnia. Assessment & Plan (06/30/2021 11:04 AM PEDIATRIC CRITICAL CARE NURSE): The patient will continue with Lunesta 3 [...] Description 01/12/2025 1:30 PM CDT Office Visit [facility] [place] [address] [facility] [address] [place] [address] Kelly Jeronimo NP TONY (obstructive sleep apnea) (Primary Dx); Primary insomnia 11/25/2024 11:15 AM CDT Office Visit [address] [address] Vicenta Early PA Sicca complex [...] on file Legal Sex Female 9:00 AM PEDIATRIC CRITICAL CARE NURSE Gender Identity Female 09/06/2024 3:20 PM PEDIATRIC CRITICAL CARE NURSE Sexual Orientation Not on file Obstetrics History [...] age to complete this topic Insurance [address] [place] [address] [facility] [address] [place] [address] [facility] [address] [place] [address] BLUE ACCESS CHOICE [place] [facility] Care Teams Machine Cementer Relationship Specialty Start Date End Date Saul Ruelas MD PCP - General Family Medicine 08/25/20 Abiodun Red MD 3 [place] [address] Referring Physician Neurology 11/27/22 Issac Amador MD [address] [place] [address] Consulting Physician Rheumatology 07/23/24
--- OUTSIDE RECORDS SUMMARY | 2025-02-10 12:09 | XMS_ITS | Encounter Summary ---
Author Organization [facility] Address [address] [place] [address] Care Team Providers Care Financial Assistant Name Role Phone Robert García MD Primary Care Provider + Encounter Details Date Type Department Care Team (Late Contact Info) Description 01/22/2024 Protection Plus Message Enc [facility] - [address], [address] [place] [address] [facility], [facility] Provider prescription Social History Tobacco Use [...] on file Legal Sex Female 9:56 AM CONCRETE FORM SETTER Gender Identity Not on file Sexual Orientation Not on file documented as of this encounter Plan of Treatment Upcoming Encounters Date Type Department Care Team (Late Contact Info) Description 02/25/2025 10:00 AM CDT Office Visit [facility] - [address], [address] [place] [address] Abiodun Red MD 3 [facility] [place] [address] 07/02/2025 2:00 PM CONCRETE FORM SETTER Office Visit [facility] Medical [facility] - [facility] [address] [facility], [address] [place] [address] Marine Glover APRN 3 [facility] [address] [place] [address] documented as of this encounter Visit Diagnoses Not on filedocumented in this encounter Additional Health Concerns Assessment Noted Time PHQ-9 Depression Total Score: 7 06/02/20 22 9:57 AM CONCRETE FORM SETTER documented as of this encounter Care Teams Financial Assistant Relationship Specialty Start Date End Date Robert García MD 3 [facility] [address] [place] [address] PCP - General 08/17/23 documented as of this encounter
--- OUTSIDE RECORDS SUMMARY | 2025-02-10 12:10 | XMS_ITS | Patient Health Record ---
Author Organization [employer] [facility] Address [address] [facility] [address] [place] [address] Care Team Providers Care Associate Software Engineer Name Role Phone Miguel Marrero Primary Care [...] Notes Problem Obesity due to excess calories (596257352) Other obesity due to excess calories (E66.09) Active confirmed Problem Chronic pain syndrome (734923180) Chronic pain syndrome (G89.4) Active confirmed Problem Abnormal weight gain (551817511) Abnormal weight gain (R63.5) Active confirmed Problem History of bariatric surgical procedure (489657630) Bariatric surgery status (Z98.84) Active confirmed Problem Essential hypertension (44731046) Essential hypertension (I10) Active confirmed Problem Obstructive sleep apnea (75163899) Obstructive sleep apnea (G47.33) Active confirmed Problem Depressive disorder (disorder) (87438500) Depression, unspecified depression type (F32.9) Active confirmed Problem History of cerebrovascular accident (366261860) History of stroke (Z86.73) Active confirmed Plan Of Treatment No Information Insurance Providers Payer Name Payer Address Payer Phone Subscriber Number Group Number Insured Name Patient Relationship to Insured Coverage Start Date Coverage End Date [employer] / [address] [phone] [id number] PRIME/Damir Reynoso Spouse - patient is the [...]
--- OUTSIDE RECORDS SUMMARY | 2025-02-10 12:10 | XMS_ITS | Clinical Summary ---
Author Organization [facility] Address [address] [place] [address] Care Team Providers Care Cargo Inspector Name Role Phone Unavailable Primary Care Provider Unavailabl e Source Comments [facility],non-owned Affiliates and Associated Physician Practices is amultiple site organization consisting of ambulatory clinics and hospital sitesin [place], [place]. This disclosure is being madepursuant to the Care Everywhere program and may not contain all information available regarding this patient. Last updated 18.[facility] PPI Social History Tobacco Use Types Packs/Day Years [...] patient's age to complete this topic Insurance [facility] [place] Address: [facility] [address] [place] [address] [facility] SELF PAY NO INSURANCE Member Subscriber Plan / Payer (Ef fective for All Dates) Name:Holly Black Member ID:Not on file Relation to Subscriber:Not on file Subscriber ID:Not on file Payer ID:Not on file Group ID:Not on file Type:Self Pay Address: [facility] SELF PAY NO INSURANCE Member Subscriber Plan / Payer (Ef fective for All Dates) Name:Holly Black Member ID:Not on file Relation to Subscriber:Not on file Subscriber ID:Not on file Payer ID:Not on file Group ID:Not on file Type:Self Pay Address: [facility] SELF PAY NO INSURANCE Member Subscriber Plan / Payer (Ef fective for All Dates) Name:Holly Black Member ID:Not on file Relation to Subscriber:Not on file Subscriber ID:Not on file Payer ID:Not on file Group ID:Not on file Type:Self Pay Address: [place], [place]
--- OUTSIDE RECORDS SUMMARY | 2025-02-10 12:10 | XMS_ITS | Clinical Summary ---
Author Organization [facility] Address [address] [place] [address] Care Team Providers Care Logger All Round Name Role Phone Robert García MD Primary [...] [facility] 01/01/2025 MyChart Message Enc [facility] Interventional Pain Management Center [facility] [place] [address] [id number] [facility] Provider Pain Management Referral 12/29/2024 Orders Only [facility] - [address], [address] [place] [phone] Abiodun Red MD 12/29/2024 Results Follow-Up [facility] - [facility] [address], [address] [place] [phone] Abiodun Red MD MRI LUMB SPINE WO CON 12/23/2024 8:17 AM CDT - 12/23/2024 11:59 PM CDT Hospital Encounter [facility] Open MRI [address] [place] [address] Abiodun Red MD Discharge Disposition: Home or Self Care (Routine Discharge) 12/23/2024 Travel 12/09/2024 Telephone [facility] - [facility] [address], [address] [place] [phone] Abiodun Red MD Prior Authorization (Qulipta) 12/03/2024 8:20 AM CDT Office Visit [facility] [address], [address] [place] [phone] Abiodun Red MD Botox Procedure (botox 155 migraines) 12/03/2024 Scan HEALTH INFO SRVCS Scanned, Doc [facility] 12/03/2024 Telephone [facility] Medical [facility] - [address] [place] [address] Abiodun Red MD Information 12/03/2024 Travel 12/01/2024 Telephone [facility] Medical [facility] Multispecialty Care - [facility] [address] [place] [address] Abiodun Red MD Reschedule from Last 3 Months Immunizations Immunization Administration [...] on file Legal Sex Female 9:56 AM ITEM REPAIR MANAGER Gender Identity Not on file Sexual Orientation Not on file Last Filed Vital Signs Vital Sign Reading Time Taken Comments Blood Pressure 119/76 12/03/2024 8:26 AM CDT Pulse 85 12/03/2024 8:26 AM CDT Temperature 36.2 C (97.2 F) 06/04/2024 9:49 AM ITEM REPAIR MANAGER Respiratory Rate 12 12/03/2024 8:26 AM CDT [...] Description 02/25/2025 10:00 AM CDT [facility] [address], [address] [place] [phone] Abiodun Red MD [address] [place] [address] 07/02/2025 2:00 PM ITEM REPAIR MANAGER [facility] [address], [address] [place] [phone] Marine Glover APRN [address] [place] [address] Health Maintenance Due Date Last Done Comments [...] Vaccines Completed 01/21/2007, 09/14/2006, 07/11/2006 PHQ-2 (Physician [place]) Completed 08/27/2024 Meningococcal B Vaccine Aged Out [...] 6:37 AM Narrative 12/29/2024 6:46 AM CDT [address] [address] EXAMINATION: MRI LUMB SPINE WO CON HISTORY: [...] for acute appearing abnormality. Procedure Note Virgilio Meyers, - 12/29/2024 [facility] [place] [address] EXAMINATION: MRI LUMB SPINE WO CON HISTORY: [...] Res ult from Last 3 Months Insurance [facility] [employer] Care Teams Logger All Round Relationship Specialty Start Date End Date Robert García MD [address] [address] [place] [phone] PCP - General 08/17/23
--- OUTSIDE RECORDS SUMMARY | 2025-02-10 12:10 | XMS_ITS ---
Author Organization [facility] Address [address] [place], [place] [id number] Care Team Providers Care Web Producer Name Role Phone KENYON FORRETS Unavailable [phone] Darci Woody Unavailable Unavailable Allergies Allergen (clinical [...] [facility] [address] [place], [place] [phone] 01/22/2025 KENYON FORREST Tendinitis of right foot [...] SPIVEY, 02/19/2025 08:40:00 AM, [address], [facility], [place], [place], [phone], Progress Notes * ANGELICA BLACK LDOB: 0 (44 yo F)Acc No.[id number]:01/22/2025 Patient: Michael ANGELICA VIDALES Provider: Kan Forrest DPM :1980 A ge:44 Y S ex:Female Date:01/22/2025 Address:[address] [id number] Subjective: * Chief Complaints: * 1 . *Fracture check with xrays. * HPI: H PI: [facility] [...] LT * Billing Information: * Visit Code: 05768 Office Visit, Est Pt., Level 3. * Procedure Codes: 36815 X-RAY EXAM OF FOOT. Modifiers: LT * Electronic signature of KENYON FORREST DPM on 02/10/2025 at 12:10 PM CDT Sign off status: Pending * Provider: Kan Forrest DPM Date: 01/22/2025 Generated for Dalia grace/Valeri/Mary on: 02/10/2025 12:10 PM CDT History and Physical Notes * [...]
--- OUTSIDE RECORDS SUMMARY | 2025-02-10 12:10 | XMS_ITS | Encounter Summary ---
Author Organization [facility] Address [address] [place] [address] Care Team Providers Care Beer Maker Name Role Phone Unavailable Primary Care Provider Unavailabl e Encounter Details Date Type Department Care Team (Late st Contact Info) Description 03/02/2022 Lab Requisition [facility] DermPath Lab [address] [place] [address] Niles George MD [address] [place] [address] Social History Tobacco Use Types Packs/Day Years [...] AM CDT) Case Report Dermatopathology Report Case: [id number] Authorizing Provider: Niles George MD Collected: 03/02/2022 12:00 AM Ordering Location: [facility] Care DermPath Lab Received: 03/02/2022 05:15 PM [...] characteristic determined by the Dermatopathology Laboratory at [facility], directed by Dr. Miguel Viramontes. These tests need not be, and therefore are not, approved by the [place] Food and Drug Administration. The tests are used for clinical purposes. Billing Codes Specimen Charges Stain Charges 39158 1 2 6:16 PM CDT DERMATOPATHOLOGY LABORATORY Embedded Images 2 6:16 PM CDT DERMATOPATHOLOGY LABORATORY Pathology/Cytolog y TISSUE SPECIMEN FROM SKIN / Unknown 03/02/2022 03/02/2022 5:15 PM CDT us Niles George MD LAB - PATHOLOGY/CYTOLOGY ORDERAB LES Final Result DERMATOPATHOLOGY LABORATORY [facility] - Department of Dermatology [address], [address] [phone] documented in this encounter Visit Diagnoses Not on filedocumented in this encounter
--- OUTSIDE RECORDS SUMMARY | 2025-02-10 12:10 | XMS_ITS | Encounter Summary ---
Author Organization [facility] Address [address] [place] [address] Care Team Providers Care Hose Cementer Name Role Phone Robert García MD Primary Care Provider + Encounter Details Date Type Department Care Team (Latest Contact Info) Description 01/01/2025 [email or web address] Message Enc [facility] Interventional [place] [address] [phone] [facility] Provider Pain Management Referral Social History [...] on file Legal Sex Female 9:56 AM SALESPERSON SEWING MACHINES Gender Identity Not on file Sexual Orientation Not on file documented as of this encounter Plan of Treatment Upcoming Encounters Date Type Department Care Team (Late st Contact Info) Description 02/25/2025 10:00 AM CDT Office Visit [facility] Multispecialty Care - [facility] [address], [address] [place] [phone] Abiodun Red MD [address] [facility] [place] [address] 07/02/2025 2:00 PM SALESPERSON SEWING MACHINES Office Visit [facility] Mult[facility]pecialty [facility] - [facility] [address], [address] [place] [phone] Marine Glover APRN [address] [facility] [address] [place] [address] documented as of this encounter Visit Diagnoses Not on filedocumented in this encounter Additional Health Concerns Assessment Noted Time PHQ-9 Depression Total Score: 7 06/02/20 22 9:57 AM SALESPERSON SEWING MACHINES documented as of this encounter Care Teams Hose Cementer Relationship Specialty Start Date End Date Robert García MD [address] [facility] [address] [place] [phone] PCP - General 08/17/23 documented as of this encounter
--- OUTSIDE RECORDS SUMMARY | 2025-02-10 12:10 | XMS_ITS | Data Portability ---
Author Organization [facility], [facility] Address [address] [address] Assessment Encounter Date Assessment Date Assessment LastModified [...] 2019 [facility], [address], [address], [place], [address], 0 16:13:19 Referral None recorded. Procedures nerve conductio n study/EMG , upper extremity (PROC) - bilateral upper extremity EMG 2019 [facility], [address], [address], [place], [address], 0 19:22:09 lumbar radiofreq uency lesioning (PROC) - RFA of Left L3,L4,L5 w/ IV sedation to be done by Dr. Marr at [facility] 2019 [email or web address] Jorge Alberto Marr MD, [address], [address], [place], [address], 0 17:40:34 Surgeries None recorded. Imaging None recorded. Medication Orders Suboxone 8 mg-2 mg sublingua l film 2019 [facility]FACE [facility], [facility] [employer] [address], [address], 0 18:36:27 Suboxone 8 mg-2 mg sublingua l film 2019 INTERFACE [facility], [facility] [employer] [facility] [address], [place], [address], 0 18:36:12 Suboxone 8 mg-2 mg sublingua l film 2019 INTERFACE [facility], [facility] [employer] [facility] [address], [place], [address], 0 18:36:22 lidocaine 5 % topical patch 2019 020 INTERFACE [facility], [address] [place] [address] 10, [place], [address], 0 18:36:17 Suboxone 8 mg-2 mg sublingua l film 2019 020 INTERFACE [facility], [address] [place] [address] 10, [place], [address], 0 14:35:52 Suboxone 8 mg-2 mg sublingua l film 2019 020 INTERFACE [facility], [address] [place] [address] 10, [place], [address], 0 15:16:01 Suboxone 8 mg-2 mg sublingua l film 2019 020 [email or web address] Not available 0 16:53:01 Patient TargetsNo targets recorded. Patient Instructions Encounter Date Encounter Id Patient Instructions Last Modified By Organization Details Last Modified Time 11/20/2019 [id number] Last UADS obtain ed on 09/29/2019 +buprenorphine consistent for prescribed medication Medication List was reviewed and/or updated during this visit, including review of any nswf-jnl-njbbedy medications, herbal therapies, and/or supplements. [place] Prescription Drug Monitoring program was reviewed today. [...] prn RR Not available 11/20/2019 14:55:30 12/18/2019 [id number] UDS collected today. Will await final confirmation from the laboratory. She will be screened today for adherence to her treatment plan and medication compliance. Medication List was reviewed and/or updated during this visit, including review of any yetk-jge-eshwbgn medications, herbal therapies, and/or supplements. Allergies updated. [place] Prescription Drug Monitoring program was reviewed today, appropriate. Risk Assessment: 9- high Risk. Ms. Guardado did not exhibit any behaviors today that would indicate illicit drug use. This assessment was obtained using the [place] Opioid Risk Tool on 11/06/2018. MED: 0 according to the [place] Prescription Drug Monitoring Program. A sleep study [...] order for a nerve conduction study to [facility] was sent on 11/20/2019. [facility] reported back stating that they need a [place] authorization request put in before proceding with the nerve condution study. She denies any cravings, relapses or persistent thoughts at this time. She is stable on her current suboxone regimen and denies any side effects or adverse reactions. Patient reports she is currently attending counseling 2-3 times a month with [facility]. Patient was educated on the positive [...] the office for any clarifications or corrections. [email or web address] Not available 12/22/2019 13:00:59 02/16/2020 [id number] Last UADS obtain ed on 12/18/2019 +buprenorphine consistent for prescribed medication Medication List was reviewed and/or updated during this visit, including review of any ardk-ptv-yimtyrm medications, herbal therapies, and/or supplements. Allergies updated. [place] Prescription Drug Monitoring program was reviewed today, [...] [facility] [address], [place], [address], 12/22/2019 16:13:19 12/18/19 20 12/22/2019 full panel barbiturates Negati ve < 200 Not Available [facility] [address], [place], [address], 12/22/2019 16:13:19 12/18/1912/22/2019 full panel benzodiazepi brandy Positi ve < 200 high Not Available [facility] [address], [place], [address], 12/22/2019 16:13:19 12/18/19 20 12/22/2019 full panel buprenorphin e Positi ve < 20 high Not Available [facility] [address], [place], [address], 12/22/2019 16:13:19 12/18/1912/22/2019 full panel cocaine Negati ve < 150 Not Available [facility] [address], [place], [address], 12/22/2019 16:13:19 12/18/19 20 12/22/2019 full panel ecstasy Negati ve < 500 Not Available [facility] [address], [place], [address], 12/22/2019 16:13:19 12/18/1912/22/2019 full panel heroin 6AM Negati ve < 10 Not Available [facility] [address], [place], [address], 12/22/2019 16:13:19 12/18/1912/22/2019 full panel methadone metabolite Negati ve < 1000 Not Available [facility] [address], [place], [address], 12/22/2019 16:13:19 12/18/19 20 12/22/2019 full panel opiates Negati ve < 300 Not Available [facility] [address], [place], [address], 12/22/2019 16:13:19 12/18/19 20 12/22/2019 full panel oxycodone Negati ve < 300 Not Available [facility] [address], [place], [address], 12/22/2019 16:13:19 12/18/19 20 12/22/2019 full panel pcp Negati ve < 25 Not Available [facility] [address], [place], [address], 12/22/2019 16:13:19 12/18/19 20 12/22/2019 full panel creatinine Normal >= 20 normal Not Available [facility] [address], [place], [address], 12/22/2019 16:13:19 12/18/19 20 12/22/2019 full panel pH Normal 4.5 - 9 normal Not Available [facility] [address], [place], [address], 12/22/2019 16:13:19 12/18/19 20 12/22/2019 full panel specific gravity Normal NG/mL 1.004 - 1.036 normal Not Available [facility] [address], [place], [address], 12/22/2019 16:13:19 12/18/19 20 12/22/2019 full panel oxidant Normal <= 200 normal Not Available [facility] [address], [place], [address], 12/22/2019 16:13:19 12/18/19 20 12/22/2019 full panel temperature Normal F manual normal Not Available [facility] [address], [place], [address], 12/22/2019 16:13:19 Result Notes None recorded. Problems Name Problem SNOMED Code Status Onset Date Resolution Date Notes Provider Name and Address Organization Details Recorded Time Numbness of hand 156318841 Active Frida Joe hong [facility] 0 14:33:48 Chronic pain 06997138 Active 2018 Giselle hong [facility] 9 15:36:58 Opioid dependence 49058708 [facility] 9 15:57:42 Low back pain 627167685 [facility] 9 15:57:49 Pain of sacroiliac joint 292183854 [facility] 9 15:57:58 Fibromyalg ia 126004702 [facility] 2018 [facility] 9 15:58:07 Central sleep apnea syndrome 46435151 [facility] 9 15:58:40 Chronic neck pain 3878251031724 Active 2018 Bhavik Garcia MD [address], [place], [address] , [facility] 9 00:15:21 Thompson's neuroma of right foot 6824124011355 08 Active 2018 Bhavik Garcia MD [address], [place], [address] , [facility] 9 23:50:15 Lumbar spondylosi s 677200676 Active 2018 Eddie hong [facility] 9 15:21:27 Spasm 84192861 Active 2018 Eddie hong [facility] 9 15:21:29 Problem Notes None recorded. Procedures Surgical History Date Name Laterality Status Provider Name and Address Organization Details Recorded Time 09/08/19 20 Lumbar Medial Branch Blocks With Sedation completed Bhavik Garcia MD [address], [place], [address], [facility] 09/08/2019 14:27:56 03/27/20 19 Sacroiliac Joint Steroid Injection Under Fluoroscopy completed Bhavik Garcia MD [address], [place], [address], [facility] 03/27/2019 18:35:31 02/14/20 19 Lumbar Medial Branch Block completed Bhavik Garcia MD [address], [place], [address], [facility] 02/13/2019 19:37:43 03/16/20 12 repair of hernia of abdominal wall completed [facility] 11/05/2018 15:22:20 bariatric operative procedure completed [facility] 11/05/2018 15:26:48 section completed [facility] 11/05/2018 15:20:01 Cholecystectomy completed [facility] 11/05/2018 15:23:52 closure of patent foramen ovale completed [facility] 11/05/2018 15:25:01 exploratory laparotomy completed [facility] 11/05/2018 15:26:14 Gastric bypass for obesity completed [facility] 11/05/2018 15:26:35 Imaging Results None recorded. Procedure Notes None recorded. Medical Equipment None Reported. Allergies Allergen ID Allergen Name Allergen Category Reaction Reaction Severity Criticality Documentation Date Start Date Code Code System Note Provider Name and Address Organization Details Recorded Time zolpidem medicatio n other Not available Not available 11/05/2018 07542 RxNorm [facility] 0 12:09:52 oxycodone medicatio n other Not available Not available 11/05/[address] [facility] 0 12:09:49 lorazepam medicatio n other Not available Not available 11/05/[address] [facility] 0 12:09:47 Medications [...] Not Available Not Available Not Available vitamin Q02-herjw acid injection solution Take 1 mL every [...] Do You Have An Advance Directive? Yes [email or web address] Information not available 11/06/2018 Auto Related Injury? No [email or web address] Information not available 11/06/2018 Are You Blind Or Do You Have Difficulty Seeing? Yes [email or web address] Information not available 11/06/2018 What Is Your Level Of Caffeine Consumption? Moderate [email or web address] Information not available 11/06/2018 How Much Tobacco Do You Chew? None [email or web address] Information not available 11/06/2018 What Type Of Diet Are You Following? REGULAR [email or web address] Information not available 11/06/2018 Education 2 Year College [email or web address] Information not available 11/06/2018 Which Of Your Hands Is Dominant? Right [email or web address] Information not available 11/06/2018 Live Alone Or With Others? With Others [email or web address] Information not available 11/06/2018 Marital Status [email or web address] Informatio n not available 11/06/2018 What Was The Date Of Your Most Recent Tobacco Screening? 01/14/2019 Information not available 02/06/2019 What Types Of Sporting Activities Do You Participate In? No Information not available 08/26/2019 General Stress Level Medium [email or web address] Information not available 11/06/2018 Do You Have Difficulty Walking Or Climbing Stairs? Yes [email or web address] Information not available 11/06/2018 Work Related Injury? No [email or web address] Information not available 11/06/2018 Sex: Unknown Functional Status Question Answer Note LastModified by Organizat ion Details LastModified Time What is your level of alcohol consumption? None [email or web address] Information not available 11/06/2018 Are you currently employed? No [email or web address] Information not available 11/06/2018 What is your exercise level? Occasional [email or web address] Information not available 11/06/2018 Mental Status None recorded. Family History Relationship Description Onset Age of this Age Resolved Age Notes LastModified by Organization Details LastModified Time Maternal Grandmother Hypertensive disorder [email or web address] Not available 11/06 15:34:10 Maternal Grandmother Heart disease [email or web address] Not available 11/06 15:34:10 Mother Disorder of thyroid gland [email or web address] Not available 11/06 15:34:10 Mother Osteoporosis [email or web address] Not matthew ilable 11/06/2018 15:34:10 Father Diabetes mellitus [email or web address] Not available 11/06 15:34:10 Father Depressive disorder [email or web address] Not available 11/06 15:34:10 Father Anxiety disorder Not available 11/06 15:34:10 Brother Depressive disorder [email or web address] Not available 11/06 15:34:10 Brother Anxiety disorder [email or web address] Not available 11/06 15:34:10 Sister Disorder of thyroid gland [email or web address] Not available 11/06 15:34:10 Medical History Condition Response Thyroid Disease Y Kidney Stones N Hernia Y COPD N Depression N Lung Disease N Glaucoma N Irregular [...] SNOMED-CT Code Diagnosis ICD10 Code Diagnosis Note [id number] Bhavik Garcia MD Main Office [address] [facility] [address] [address] 11/06/2018 14:13:34 11/08/2018 15:40:28 Chronic pain 86980461 G89.29 Pt hs been on opioids since 2012Pt has been weaning down on the opioids for the past year.Pt has noticed withdrawal symptoms Long-term drug therapy 679198975 Z79.899 Opioid dependence 854413 00 F11.20 weaned of Provigil in Oct 2018 Low back pain 017157344 M54.5 CT L-spine (11 Jun 2018)-- slight retrolisth esis of L2 on L3. Mild degenerati ve changes of T12-L3, No CS, No NFS Pain of sa croiliac joint 594204965 M53.3 Patient to obtain records Fibromyalgia 555878300 M 79.7 on Lyrica 150 mg po bid Central sl eep apnea syndrome 79532722 G47.31 Bi-Pap machine -JBER Chronic neck pain 423095 [address] C-spine (11 Jun 2018) -- mild DDD of the lower C-spine. No acute injury CT T-spine (11 Jun 2018)-- No abnormalit y [id number] Bhavik Garcia MD Main Office [address] [facility] [address] [place] [address] 11/21/2018 13:45:29 11/26/2018 16:57:24 Chronic pain 73792861 G89.29 Pt hs been on opioids since 2012Pt has been weaning down on the opioids for the past year.Pt has noticed withdrawal symptoms Opioid dependence 837891 00 F11.20 weaned of Provigil in Oct 2018 Constipation 40227456 K5 9.00 recommend using miralax on a daily basis Central sl eep apnea syndrome 95082800 G47.31 Bi-Pap machine -JBER Low back pain 821636648 M54.5 CT L-spine (11 Jun 2018)-- slight retrolisth esis of L2 on L3. Mild degenerati ve changes of T12-L3, No CS, No NFS Fibromyalgia 419070371 M 79.7 on Lyrica 150 mg po bid [id number] Bhavik Garcia MD Main Office [address] [facility] [address] [place] [address] 12/11/2018 12:32:03 12/13/2018 14:05:44 Chronic pain 45215760 G89.29 Pt hs been on opioids since 2012Pt has been weaning down on the opioids for the past year.Pt has noticed withdrawal symptoms Low back pain 375128356 M54.5 CT L-spine (11 Jun 2018)-- slight retrolisth esis of L2 on L3. Mild degenerati ve changes of T12-L3, No CS, No NFS Pain of sa croiliac joint 023961565 M53.3 Patient to obtain records Opioid dependence 926516 00 F11.20 started suboxone on 06 November 2018 weaned of Provigil in Oct 2018 Thompson's n euroma of right foot 8024876468 50875 G57.61 scheduled for [facility] Neuroma excision on 12 Dec 2018 from the right foot Pt plans to use the buprenorph ine for pain controlmay also use Ibuprofen / TylenolIf worse pain than expected will use short course of oxycodone Central sl eep apnea syndrome 12658285 G47.31 Bi-Pap machine -JBER Fibromyalgia 668790946 M 79.7 on Lyrica 150 mg po bid [id number] Bhavik Garcia MD Main Office [address] [facility] [address] [place] [address] 12/17/2018 13:08:21 12/23/2018 15:48:29 Chronic pain 88900526 G89.29 Pt hs been on opioids since 2012Pt has been weaning down on the opioids for the past year.Pt has noticed withdrawal symptoms Opioid dependence 238258 00 F11.20 started suboxone on 06 November 2018 weaned of Provigil in Oct 2018 Jay's n euroma of right foot 1385548882 16411 G57.61 scheduled for [facility] Neuroma excision on 12 Dec 2018 from the right foot Pt plans to use the buprenorph ine for pain controlmay also use Ibuprofen / TylenolIf worse pain than expected will use short course of oxycodone Low back pain 038619328 M54.5 CT L-spine (11 Jun 2018)-- slight retrolisth esis of L2 on L3. Mild degenerati ve changes of T12-L3, No CS, No NFS Pain of sa croiliac joint 475861774 M53.3 Patient to obtain records Central sl eep apnea syndrome 76962531 G47.31 Bi-Pap machine -JBER Fibromyalgia 725915054 M 79.7 on Lyrica 150 mg po bid [id number] Bhavik Garcia MD Main Office [address] [facility] [address] [place] [address] 01/14/2019 14:33:23 01/22/2019 13:33:27 Opioid dependence 69179233 F11.20 started suboxone on 06 November 2018 weaned of Provigil in Oct 2018 Thompson's n euroma of right foot 5913540249 05661 G57.61 Mortons Neuroma excision on 12 Dec 2018 from the right foot on MOLLY (Dr. Collier) Pt plans to use the buprenorph ine for pain controlmay also use Ibuprofen / TylenolIf worse pain than expected will use short course of oxycodone Pain of sa croiliac joint 922994460 M53.3 Patient to obtain records Central sl eep apnea syndrome 68616953 G47.31 Bi-Pap machine -JBER Fibromyalgia 473056152 M 79.7 on Lyrica 150 mg po bid Spasm 61738487 R25.2 Took over Cyclobenza la Lumbar spondylosis [address] L-spine (11 Jun 2018)-- slight retrolisth esis of L2 on L3. Mild degenerati ve changes of T12-L3, No CS, No NFS Ordered BL MBB L3-5 [id number] Bhavik Garcia MD Main Office [address] [address] 02/10/2019 18:15:08 02/18/2019 18:01:34 Opioid dependence 25325394 F11.20 started suboxone on 06 November 2018 weaned of Provigil in Oct 2018 Lumbar spondylosis [address] L-spine (11 Jun 2018)-- slight retrolisth esis of L2 on L3. Mild degenerati ve changes of T12-L3, No CS, No NFS scheduled for MBB#1 stephon L3,L4,L5 on 13 Feb 2019 Thompson's n euroma of right foot 0945076958 53083 G57.61 Mortons Neuroma excision on 12 Dec 2018 from the right foot on MOLLY (Dr. Collier) healing well Pain of sa croiliac joint 427727314 M53.3 Patient to obtain records Central sl eep apnea syndrome 81551368 G47.31 Bi-Pap machine -JBER Fibromyalgia 707039799 M 79.7 on Lyrica 150 mg po bid Spasm 74381278 R25.2 Took over Cyclobenza la Chronic pain 09245920 G8 9.29 Pt hs been on opioids since 2012Pt has been weaning down on the opioids for the past year.Pt has noticed withdrawal symptoms [id number] Bhavik Garcia MD Main Office [address] [facility] [address] [place] [address] 02/13/2019 18:47:41 02/20/2019 16:21:24 Lumbar spondylosis 621648906 M47.816 CT L-spine (11 Jun 2018)-- slight retrolisth esis of L2 on L3. Mild degenerati ve changes of T12-L3, No CS, No NFS completed stephon L3,L4, L5 MBB#1 on 13 Feb 2019 [id number] Bhavik Garcia MD Main Office [address] [facility] [address] [place] [address] 03/10/2019 17:38:53 03/18/2019 18:30:29 Opioid dependence 37927276 F11.20 started suboxone on 06 November 2018 weaned of Provigil in Oct 2018 Lumbar spondylosis [address] L-spine (11 Jun 2018)-- slight retrolisth esis of L2 on L3. Mild degenerati ve changes of T12-L3, No CS, No NFS completed stephon L3,L4, L5 MBB#1 on 13 Feb 2019 -- reports>80 % pain reductionw ill schedule MBB#2 L3,L4,L5 Thompson's n euroma of right foot 5948213100 01877 G57.61 Mortons Neuroma excision on 12 Dec 2018 from the right foot on JBER (Dr. Collier) healing well Central sl eep apnea syndrome 89652499 G47.31 Bi-Pap machine -JBER Fibromyalgia 052655974 M 79.7 on Lyrica 150 mg po bid Spasm 35857827 R25.2 Took over Cyclobenza la Long-term drug therapy 711079368 Z79.899 [id number] Bhavik Garcia MD Main Office [address] [facility] [address] [place] [address] 03/27/2019 17:36:09 04/03/2019 13:06:15 Pain of sacroiliac joint 379482428 M53.3 completed left SI jt injection on 27 Mar 2019 [id number] Bhavik Garcia MD Main Office [address] [address] 04/08/2019 13:42:28 04/15/2019 13:49:15 Opioid dependence 57593842 F11.20 started suboxone on 06 November 2018 Lumbar spondylosis [address] L-spine (11 Jun 2018)-- slight retrolisth esis of L2 on L3. Mild degenerati ve changes of T12-L3, No CS, No NFS completed stephon L3,L4, L5 MBB#1 on 13 Feb 2019 -- reports>80 % pain reduction Schedued for MBB#2 L3,L4,L5 on 24 Apr 2019 Central sl eep apnea syndrome 52811862 G47.31 Bi-Pap machine -JBER Fibromyalgia 285734290 M 79.7 on Lyrica 150 mg po bid Spasm 64035056 R25.2 Long-term drug therapy 532995124 Z79.899 Pain of sa croiliac joint 160673226 M53.3 completed left SI jt injection on 27 Mar 2019--80% pain reduction [id number] Bhavik Garcia MD Main Office [address] [facility] [address] [place] [address] 05/06/2019 13:38:05 05/13/2019 14:09:45 Opioid dependence 69107031 F11.20 started suboxone on 06 November 2018 Pain of sa croiliac joint 963299819 M53.3 completed left SI jt injection on 27 Mar 2019--80% pain reduction Fibromyalgia 946170191 M 79.7 on Lyrica 150 mg po bid Spasm 13085683 R25.2 Central sl eep apnea syndrome 03000432 G47.31 Bi-Pap machine -JBER Long-term drug therapy 016193849 Z79.899 Lumbar spondylosis [address] L-spine (11 Jun 2018)-- slight retrolisth esis of L2 on L3. Mild degenerati ve changes of T12-L3, No CS, No NFS completed stephon L3,L4, L5 MBB#1 on 13 Feb 2019 -- reports>80 % pain reduction Scheduled for MBB#2 L3,L4,L5 on 12 May 2019 [id number] Bhavik Garcia MD Main Office [address] [facility] [address] [place] [address] 06/03/2019 15:40:20 06/16/2019 16:00:37 Opioid dependence 85379453 F11.20 started suboxone on 06 November 2018 Lumbar spondylosis [address] L-spine (11 Jun 2018)-- slight retrolisth esis of L2 on L3. Mild degenerati ve changes of T12-L3, No CS, No NFS completed stephon L3,L4, L5 MBB#1 on 13 Feb 2019 -- reports>80 % pain reduction will order MBB#2 L3,L4,L5 Pain of sa croiliac joint 672588725 M53.3 completed left SI jt injection on 27 Mar 2019--80% pain reduction Fibromyalgia 192088090 M 79.7 on Lyrica 150 mg po bid Spasm 23189093 R25.2 Central sl eep apnea syndrome 05221650 G47.31 Bi-Pap machine -JBER Thompson's n euroma of right foot 0199400010 84820 G57.61 Mortons Neuroma excision on 12 Dec 2018 from the right foot on JBER (Dr. Collier) healing well Chronic pain 36237938 G8 9.29 Pt hs been on opioids since 2012Pt has been weaning down on the opioids for the past year.Pt has noticed withdrawal symptoms [id number] Bhavik Garcia MD Main Office [address] [place], [place] [address] [facility] [address] [place] [address] 06/30/2019 18:09:50 07/10/2019 17:49:54 Opioid dependence 50604648 F11.20 started suboxone on 06 November 2018 Chronic neck pain 176435 [address] C-spine (11 Jun 2018) -- mild DDD of the lower C-spine. No acute injury CT T-spine (11 Jun 2018)-- No abnormalit y Neck pain 50346793 M54.2 Lumbar spondylosis [address] L-spine (11 Jun 2018)-- slight retrolisth esis of L2 on L3. Mild degenerati ve changes of T12-L3, No CS, No NFS completed stephon L3,L4, L5 MBB#1 on 13 Feb 2019 -- reports>80 % pain reduction will order MBB#2 L3,L4,L5 [id number] Bhavik Garcia MD Main Office [address] [facility] [address] [place] [address] 07/29/2019 13:42:17 08/04/2019 18:41:56 Opioid dependence 31537296 F11.20 started suboxone on 06 November 2018 Chronic pain 86157488 G8 9.29 Pt hs been on opioids since 2013Pt has been weaning down on the opioids for the past year.Pt has noticed withdrawal symptoms Lumbar spondylosis [address] L-spine (11 Jun 2018)-- slight retrolisth esis of L2 on L3. Mild degenerati ve changes of T12-L3, No CS, No NFS completed stephon L3,L4, L5 MBB#1 on 13 Feb 2019 -- reports>80 % pain reduction will order MBB#2 L3,L4,L5 Pain of sa croiliac joint 735671897 M53.3 completed left SI jt injection on 27 Mar 2019--80% pain reduction Long-term drug therapy 788638882 Z79.899 [id number] Bhavik Garcia MD Main Office [address] [facility] [address] [place] [address] 08/26/2019 14:00:21 08/29/2019 14:10:10 Opioid dependence 43539436 F11.20 started suboxone on 06 November 2018 Chronic pain 13094266 G8 9.29 Lumbar spondylosis [address] L-spine (11 Jun 2018)-- slight retrolisth esis of L2 on L3. Mild degenerati ve changes of T12-L3, No CS, No NFS completed stephon L3,L4, L5 MBB#1 on 13 Feb 2019 -- reports>80 % pain reduction will order MBB#2 stephon L3,L4,L5 Pain of sa croiliac joint 843179502 M53.3 completed left SI jt injection on 27 Mar 2019--80% pain reduction Numbness of hand 9785211 04 R20.0 will order stephon UE EMG / NCS to r/o CTSwill set up with nocturnal wrist splints Spasm 71941993 R25.2 [id number] Bhavik Garcia MD Main Office [address] [address] 09/08/2019 13:31:26 09/12/2019 14:03:08 Lumbar spondylosis 946955290 M47.816 CT L-spine (11 Jun 2018)-- slight retrolisth esis of L2 on L3. Mild degenerati ve changes of T12-L3, No CS, No NFS completed stephon L3,L4, L5 MBB#1 on 13 Feb 2019 -- reports>80 % pain reduction completed stephon MBB#2 on 08 Sep 2019prepro cedure pain was 01/22 [id number] Yolis Miley espinoza, Main Office [address] [address] 09/25/2019 13:48:32 09/25/2019 18:41:45 Lumbar spondylosis 854283180 M47.896 CT L-spine (11 Jun 2018)-- slight retrolisth esis of L2 on L3. Mild degenerati ve changes of T12-L3, No CS, No NFS completed stephon L3,L4, L5 MBB#1 on 13 Feb 2019 -- reports>80 % pain reduction L3, L4, L5 MBB #2 on 09/08/19: 80% relief Opioid dependence 527395 00 F11.20 Chronic pain 37652735 G8 9.29 Patient takes medication s for this condition. Numbness of hand 8847142 04 R20.0 UE EMG have been ordered. Pt. needs to schedule [id number] Bhavik Garcia MD Main Office [address] [address] 10/23/2019 13:59:53 10/31/2019 14:03:53 Opioid dependence 16291855 F11.20 started suboxone on 06 November 2018 Lumbar spondylosis [address] L-spine (11 Jun 2018)-- slight retrolisth esis of L2 on L3. Mild degenerati ve changes of T12-L3, No CS, No NFS completed stephon L3,L4, L5 MBB#1 on 13 Feb 2019 -- reports>80 % pain reduction Completed MBB#2 stephon L3,L4,L5 08 Sep 2019-80% relief Pain of sa croiliac joint 837576175 M53.3 completed left SI jt injection on 27 Mar 2019--80% pain reduction Numbness of hand 4334127 04 R20.0 Occasional numbness right hand index middle and ring finger Chronic neck pain 237760 [address] C-spine (11 Jun 2018) -- mild DDD of the lower C-spine. No acute injury CT T-spine (11 Jun 2018)-- No abnormalit y [id number] Bhavik Garcia MD Main Office [address] [address] 11/20/2019 14:00:56 11/26/2019 18:42:05 Lumbar spondylosis 087386803 M47.816 CT L-spine (11 Jun 2018)-- slight retrolisth esis of L2 on L3. Mild degenerati ve changes of T12-L3, No CS, No NFS completed stephon L3,L4, L5 MBB#1 on 13 Feb 2019 -- reports>80 % pain reduction Completed MBB#2 stephon L3,L4,L5 08 Sep 2019-80% relief will order Left RFA L3,L4,L5sc heduled for right RFA L3,L4,L5 on 05 Dec 2019 Opioid dependence 084249 00 F11.20 started suboxone on 06 November 2018 Pain of sa croiliac joint 961404609 M53.3 completed left SI jt injection on 27 Mar 2019--80% pain reduction Numbness of hand 7632833 04 R20.0 Occasional numbness right hand index middle and ring fingerwill order NCS / EMG of the UE Chronic neck pain 781862 [address] C-spine (11 Jun 2018) -- mild DDD of the lower C-spine. No acute injury CT T-spine (11 Jun 2018)-- No abnormalit y [id number] Jorge Alberto Marr MD Main Office [address] [address] [address] 12/05/2019 12:11:05 12/17/2019 19:36:10 [id number] Bhavik Garcia MD Main Office [address] [facility] [address] [place] [address] 12/18/2019 14:00:17 12/29/2019 13:43:26 Opioid dependence 30868805 F11.20 started suboxone on 06 November 2018[facility]es to [place] [facility] month Lumbar spondylosis [address] L-spine (11 Jun 2018)-- slight retrolisth esis of L2 on L3. Mild degenerati ve changes of T12-L3, No CS, No NFS completed stephon L3,L4, L5 MBB#1 on 13 Feb 2019 -- reports>80 % pain reductionC ompleted MBB#2 stephon L3,L4,L5 08 Sep 2019-80% relief completed right RFA L3,L4,L5 on 05 Dec 2019---rep orts 80% pain reduction Pain of sa croiliac joint 898843517 M53.3 completed left SI jt injection on 27 Mar 2019--80% pain reduction Numbness of hand 8201643 04 R20.0 Occasional numbness right hand index middle and ring fingerneed to reorder NCS / EMG of the UE to [facility] PT Chronic neck pain 783478 [address] C-spine (11 Jun 2018) -- mild DDD of the lower C-spine. No acute injury CT T-spine (11 Jun 2018)-- No abnormalit y Long-term drug therapy 367078900 Z79.899 [id number] Bhavik Garcia MD Main Office [address] [place], [place] [address] [address] [address] 01/19/2020 13:53:44 01/30/2020 19:48:04 Opioid dependence 02647825 F11.20 started suboxone on 06 November 2018[facility] [place] [facility] Lumbar spondylosis [address] L-spine (11 Jun 2018)-- slight retrolisth esis of L2 on L3. Mild degenerati ve changes of T12-L3, No CS, No NFS completed stephon L3,L4, L5 MBB#1 on 13 Feb 2019 -- reports>80 % pain reductionC ompleted MBB#2 stephon L3,L4,L5 08 Sep 2019-80% relief completed right RFA L3,L4,L5 on 05 Dec 2019---rep orts 80% pain reduction Pain of sa croiliac joint 555367549 M53.3 completed left SI jt injection on 27 Mar 2019--80% pain reduction Numbness of hand 2314302 04 R20.0 Occasional numbness right hand index middle and ring fingerneed to reorder NCS / EMG of the UE to [facility] PT Chronic neck pain 756390 [address] C-spine (11 Jun 2018) -- mild DDD of the lower C-spine. No acute injury CT T-spine (11 Jun 2018)-- No abnormalit y [id number] Bhavik Garcia MD Main Office [address] [place] [address] [place] [address] 02/16/2020 17:03:53 02/23/2020 18:27:24 Opioid dependence 13621790 F11.20 started suboxone on 06 November 2018[facility]es to [place] 2-3 times a month Numbness of hand 1576396 04 R20.0 Occasional numbness right hand index middle and ring fingerneed to reorder NCS / EMG of the UE to [facility]yses PTOrder was not improved through tricarePt is PCSing out of area through the in 3 weeks Pain of croiliac joint 582312384 M53.3 completed left SI jt injection on 27 Mar 2019--80% pain reduction Pt reports LBP with radicular down to the knees Lumbar spondylosis [address] L-spine (11 Jun 2018)-- slight retrolisth esis of L2 on L3. Mild degenerati ve changes of T12-L3, No CS, No NFS completed stephon L3,L4, L5 MBB#1 on 13 Feb 2019 -- reports>80 % pain reductionC ompleted MBB#2 stephon L3,L4,L5 08 Sep 2019-80% relief completed right RFA L3,L4,L5 on 05 Dec 2019---rep orts 80% pain reduction Chronic neck pain 459592 [address] C-spine (11 Jun 2018) [...] Wilks Member ID Guarantor Name 02/23/2020 1 [facility] () Damir Guardado [id number] Holly Guardado OBGyjose Episode No OBEpisode recorded.
--- OUTSIDE RECORDS SUMMARY | 2025-02-10 12:10 | XMS_ITS ---
Author Organization [facility] Address [address] [place], [place] [address] Care Team Providers Care Sign Installer Name Role Phone KENYON FORREST Unavailable [phone] Darci Woody Unavailable Unavailable Allergies Allergen (clinical [...] [facility] [address] [place], [place] [id number] 12/25/2024 KENYON FORREST Nondisplaced fracture of fifth [...] 02/19/2025 08:40:00 AM, [address], [facility], [place], [place], [id number], Progress Notes * ANGELICA BLACK LDOB: 0 (44 yo F)Acc No.[id number]:12/25/2024 Patient: Michael ANGELICA VIDALES Provider: Kan Forrest DPM :1980 A ge:44 Y S ex:Female Date:12/25/2024 Address:[address] [facility] Subjective: * Chief Complaints: * 1 . SX foot really hurting and broke other foot. * HPI: H PI: New Complaint E stablished patient presents with a new complaint. Patient complains of an issue to her left foot. She states she was getting into bed and felt a pop. She went the next morning to [facility] and had x-rays done. They showed a [...] weeks. MA: robert. [facility] for [facility] on [...] X-RAY EXAM OF FOOT, Modifiers: RT , 04407 X-RAY EXAM OF FOOT, Modifiers: LT * Billing Information: * Visit Code: 15800 Office Visit, Est Pt., Level 3. * Procedure Codes: 33532 X-RAY EXAM OF FOOT. Modifiers: RT 70169 X-RAY EXAM OF FOOT. Modifiers: LT * Electronic signature of KENYON FORREST DPM on 02/10/2025 at 12:09 PM CDT Sign off status: Pending * Provider: Kan Forrest DPM Date: 0 12/25/2024 Generated for Dalia grace/Valeri/Ashwiniitting on: 0 02/10/2025 12:09 PM CDT History and Physical Notes * HPI (History of Present Illness) Category Sub-Category Detail Notes Category Not es HPI New Complaint Established rachid ent presents with a new complaint. Patient complains of an issue to her left foot. She states she was getting into bed and felt a pop. She went the next morning to [facility] and had x-rays done. They showed [...]
--- OUTSIDE RECORDS SUMMARY | 2025-02-10 12:10 | XMS_ITS | Encounter Summary ---
Author Organization [facility] Address [address] [place] [address] Care Team Providers Care Enterprise Business Architect Name Role Phone Robert García MD Primary Care Provider + Encounter Details Date Type Department Care Team (Latest Contact Info) Description 12/29/2024 Results Follow-Up [facility] Multispecialty Care - [facility] [address] [facility], [address] [place] [address] Abiodun Red MD 3 [place] [address] MRI LUMB SPINE WO CON Social History [...] on file Legal Sex Female 9:56 AM GIFT SHOP MANAGER Gender Identity Not on file Sexual Orientation Not on file documented as of this encounter Plan of Treatment Upcoming Encounters Date Type Department Care Team (Late st Contact Info) Description 02/25/2025 10:00 AM CDT Office Visit [facility] - [facility] [address] [facility], [address] [place] [address] Abiodun Red MD 3 [facility] [place] [place] [address] 07/02/2025 2:00 PM GIFT SHOP MANAGER [facility] - [facility] [address] [facility], [address] [place] [phone] Marine Glover APRN 3 [facility] [address] [place] [address] documented as of this encounter Visit Diagnoses Not on filedocumented in this encounter Additional Health Concerns Assessment Noted Time PHQ-9 Depression Total Score: 7 06/02/20 22 9:57 AM GIFT SHOP MANAGER documented as of this encounter Care Teams Enterprise Business Architect Relationship Specialty Start Date End Date Robert García MD 3 [facility] [address] [place] [phone] PCP - General 08/17/23 documented as of this encounter
--- OUTSIDE RECORDS SUMMARY | 2025-02-10 12:10 | XMS_ITS | Patient Health Record ---
Author Organization [facility] Address [address] [place], [place] [address] Care Team Providers Care Online Publisher Name Role Phone KENYON HARRIS Unavailable [phone] Darci Woody Unavailable Unavailable Allergies Allergen (clinical drug ingredient) Drug/Non Drug Allergy documented on EMR Reaction Allergy Type Onset Date Status lorazepam Lorazepam other Drug Allergy Active oxycodone Oxycodone other Drug Allergy Active zolpidem Zolpidem other Drug Allergy Active Reason For Referral Reason [facility] ( S URGERY ) 81672 1 UNIT / DR. STONE / [facility]. 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 05/05/2019 Administered MMR Unknown 05/28/2009 Administered MMR Unknown 05/28/2009 Administered MMR Unknown 05/05/2019 Administered MMR Unknown 05/05/2019 Administered Novel [id number] Unknown 05/19/2009 Administered Novel [id number] Unknown 05/19/2009 Administered Pfizer-Biontech Covid-19 Vac cine [...] kg/m2 02/05/2025 Encounters Encounter Location Date Provider [address] [place] [address] 10/23/2024 KENYON HARRIS [facility] [place] [address] [place] [id number] 12/25/2024 KENYON HARRIS Nondisplaced fracture of fifth metatarsal bone, left foot, initial encounter for closed fracture S92.355A ; Tendinitis of right foot M77.51 ; Pain in right foot M79.671 and Left foot pain M79.672 [facility] [place] [address] [place] [id number] 01/22/2025 KENYON HARRIS Tendinitis of right foot M77.51 ; Nondisplaced fracture of fifth metatarsal bone, left foot, subsequent encounter for fracture with routine healing S92.355D ; Pain in right foot M79.671 and Left foot pain M79.672 [facility] [place] [address] [place] [id number] 02/05/2025 KENYON HARRIS Tendinitis of right foot M77.51 ; Nondisplaced fracture of fifth metatarsal bone, left foot, subsequent encounter for fracture with routine healing S92.355D ; Pain in right foot M79.671 and Left foot pain M79.672 [facility] [place] [facility] [address] [place] [id number] 04/24/2024 KENYONRACH GALEMIHIR Tailor's bunion of right foot M21.621 ; Bunionette of left foot M21.622 and Pain in right foot M79.671 [facility] [place] [facility] [address] [place] [id number] 05/22/2024 KENYON SHAHLAMIHIR Tailor's bunion of right foot M21.621 ; Bunionette of left foot M21.622 ; Pain in right foot M79.671 and Left foot pain M79.672 [facility] [place] [address] [place] [id number] 06/26/2024 KENYON SHAHLAMIHIR Tailor's bunion of right foot M21.621 ; Bunionette of left foot M21.622 ; Pain in right foot M79.671 and Left foot pain M79.672 [facility] [place] [address] [address] [place] [id number] 07/24/2024 KENYONRACH HARRIS Tailor's bunion of right foot M21.621 ; Bunionette of left foot M21.622 ; Pain in right foot M79.671 and Left foot pain M79.672 [facility] [place] [facility] [address] [place] [id number] 08/14/2024 KENYON SHAHLAMIHIR Tailor's bunion of right foot M21.621 and Pain in right foot M79.671 [facility] [place] [facility] [address] [place] [id number] 10/30/2024 KENYONRACH GALEMIHIR Tailor's bunion of right foot M21.621 ; Neoplasm of unspecified behavior of bone, soft tissue, and skin D49.2 ; Encounter for other specified surgical aftercare Z48.89 and Pain in right foot M79.671 [facility] [place] [facility] [address] [place], [place] [id number] 11/06/2024 KENYON STEVEN Tailor's bunion of right foot M21.621 ; Neoplasm of unspecified behavior of bone, soft tissue, and skin D49.2 and Encounter for other specified surgical aftercare Z48.89 [facility] [place] [address] [place], [place] [id number] 12/04/2024 KENYON STEVEN Tailor's bunionette, left M21.622 and Left foot pain M79.672 [facility] [place] [address] [place], [place] [id number] 10/24/2024 KENYON HARRIS [facility] [place] [address] [place], [place] [id number] 10/01/2024 KENYON HARRIS Assessments Encounter Date Diagnosis [...] Details Provider Name:KENYON SPIVEY, 02/19/2025 08:40:00 AM, [address], [place], [place], [phone], Insurance Providers Payer Name Payer Address Payer Phone Subscriber Number Group Number Insured Name Patient Relationship to Insured Coverage Start Date Coverage End Date [facility] ATTN CLAIMS [address] [place] [address] [id number] ANGELICA BLACK Self - patient is the insured [facility] [address] [place] [address] [id number] GISSEL BLACK Spouse - patient is the spouse of the insured Medical (General) History Medical History History ICD Code anxiety high blood pressure insomnia
--- NOTE | 2025-02-10 12:15 | ECG_ITS ---
Test Date: 2025-02-10 12:20:26 Measurements Intervals [place] Rate: 123 P: 30 GA: 151 QRS: 35 QRSD: 94 T: -3 QT: 323 QTc: 462 Interpretive Statements SINUS TACHYCARDIA NONSPECIFIC T-WAVE ABNORMALITY Electronically Signed On 02-10-2025 17:29:58 CDT by Edward Bauer D.O
--- NOTE | 2025-02-10 12:22 | PC.NURSE ---
Patient placed on 2L NC oxygen due to O2 ranging between 90-92% on room air.
[2025-02-10 12:49] LABS: Hematocrit 43.7 % (37.0-47.0); Hemoglobin 14.2 g/dL (12.0-15.0); Immature Granulocyte Percent A 2.2 % (0-0.5); Lymphocytes Absolute Auto 2.43 K/mm3 (0.9-3.2); Mean Corpuscular HGB Conc 32.5 g/dl (32-36); Mean Corpuscular Hemoglobin 30.9 pg (26-34); Mean Corpuscular Volume 95.2 fl (80-100); Nucleated Red Blood Cells Absolute Auto 0.000 K/mm3 (0.0-0.012); Nucleated Red Blood Cells Perc 0.0 % (0.0-0.2); Platelet Count Result 407 k/mm3 (150-375); Red Blood Count 4.59 M/mm3 (4.2-5.4); White Blood Count 20.3 K/mm3 (4.5-10.0)
[2025-02-10 13:49] LABS: Alanine Aminotransferase 23 U/L (6-35); Albumin Level 2.8 g/dL (3.5-5.1); Alkaline Phosphatase 157 U/L (38-126); Anion Gap 9 mmol/L (4-12); Aspartate Amino Transferase 21 U/L (14-36); Bilirubin,Total 0.4 mg/dL (0.2-1.3); Blood Urea Nitrogen 17 mg/dL (7-17); Calcium 9.3 mg/dL (8.4-10.2); Carbon Dioxide 27 mmol/L (22-30); Chloride 94 mmol/L (98-107); Estimated CRCL calculation 97 ml/min; Estimated Glomerular Filt Rate > 60; Glucose 103 mg/dL (65-110); Potassium 4.3 mmol/L (3.4-5.0); Sodium 130 mmol/L (137-145); Total Protein 5.3 g/dL (6.3-8.2)
--- OUTSIDE RECORDS SUMMARY | 2025-02-10 15:06 | XMS_ITS | Clinical Summary ---
Author Organization [address] Address [address] [place] [address] Care Team Providers Care Materials Planner Name Role Phone Saul Ruelas MD Primary Care Provider [phone] Abiodun Red MD Unavailable [phone] Issac Amador MD Unavailable [phone] Allergies No known active allergies Medications [...] is currently on suboxone through pain management. [place] some relief with meloxicam so will resume [...] needed. Assessment & Plan (09/01/2024 12:03 PM TENT FINISHER): 44-year-old female with PMHx of HTN, HLD, [...] due to hx GERD. Will contact supervisor elementary education for records. Follow up in 2 weeks. Sooner if needed. Seen with Dr. Amador. TONY (obstructive sleep apnea) 10/05/2020 Assessment & Plan (01/12/2025 2:03 PM CDT): The patient is intolerant of higher CPAP pressures, she will continue CPAP at 8 cm water pressure. She is aware that her AHI is elevated. DME adapt Assessment & Plan (07/01/2024 10:25 AM TENT FINISHER): Patient continue with CPAP at 8 cm water pressure while sleeping. She was intolerable of higher pressures in the past. DME is adapt. Assessment & Plan (06/28/2023 11:59 AM TENT FINISHER): Due to continued symptoms, the patient will continue CPAP at 8 cm water pressure. The patient has an elevated AHI, however she is intolerant of higher pressure. Denied need for supplies. DME adapt Assessment & Plan (06/27/2022 12:02 PM TENT FINISHER): Patient continue to wear CPAP at 8 cm water pressure while sleeping. Her DME is adapt. The patient did not tolerate an increase in her pressures in the past. Assessment & Plan (06/30/2021 11:05 AM TENT FINISHER): Patient continue to wear CPAP at 8 [...] patient denied need for supplies. DME company [employer]. The patient and I discussed the [...] her mouth coming open while sleeping. The [employer] company is [employer]. The patient is benefitting from CPAP therapy. [...] person. Assessment & Plan (07/01/2024 10:25 AM TENT FINISHER): The patient continues with Lunesta 3 mg on most nights. Assessment & Plan (06/28/2023 11:58 AM TENT FINISHER): Due to continued symptoms, the patient will continue Lunesta 3 mg nightly. I have refilled the medication and will refill for 1 year Patient is aware that she should wear her CPAP machine if taking the medication. Assessment & Plan (06/27/2022 12:02 PM TENT FINISHER): The patient will continue with Lunesta 3 mg p.o. at bedtime to treat insomnia. Assessment & Plan (06/30/2021 11:04 AM TENT FINISHER): The patient will continue with Lunesta 3 [...] Description 01/12/2025 1:30 PM CDT Office Visit [facility] Pul[facility] [place] [address] [facility] [address] [place] [phone] Kelly Jeronimo NP TONY (obstructive sleep apnea) (Primary Dx); Primary insomnia 11/25/2024 11:15 AM CDT Office Visit [address] [address] Vicenta Early PA Sicca complex [...] on file Legal Sex Female 9:00 AM TENT FINISHER Gender Identity Female 09/06/2024 3:20 PM TENT FINISHER Sexual Orientation Not on file Obstetrics History [...] age to complete this topic Insurance [address] [place] [address] [facility] [address] [place] [address] [employer] [place] [facility] [address] [place] [address] [place] [facility] Care Teams Materials Planner Relationship Specialty Start Date End Date Saul Ruelas MD PCP - General Family Medicine 08/25/20 Abiodun Red MD 3 [place] [address] Referring Physician Neurology 11/27/22 Issac Amador MD [address] [place] [address] Consulting Physician Rheumatology 07/23/24
--- OUTSIDE RECORDS SUMMARY | 2025-02-10 15:06 | XMS_ITS | Encounter Summary ---
Author Organization [facility] Address [address] [place] [address] Care Team Providers Care Entomology Teacher Name Role Phone Robert García MD Primary Care Provider + Encounter Details Date Type Department Care Team (Late Contact Info) Description 01/22/2024 [facility] Message Enc [facility] - [address], [address] [place] [phone] [place], [facility] Provider prescription Social History Tobacco Use [...] on file Legal Sex Female 9:56 AM TRAFFIC OPERATIONS MANAGER Gender Identity Not on file Sexual Orientation Not on file documented as of this encounter Plan of Treatment Upcoming Encounters Date Type Department Care Team (Late Contact Info) Description 02/25/2025 10:00 AM CDT Office Visit [facility] - [address], [address] [place] [phone] Abiodun Red MD 3 [facility] [place] [address] 07/02/2025 2:00 PM TRAFFIC OPERATIONS MANAGER Office Visit [facility] Multispecialty Care - [facility] [address] [facility], [address] [place] [address] Marine Glover APRN 3 [facility] [address] [place] [address] documented as of this encounter Visit Diagnoses Not on filedocumented in this encounter Additional Health Concerns Assessment Noted Time PHQ-9 Depression Total Score: 7 06/02/20 22 9:57 AM TRAFFIC OPERATIONS MANAGER documented as of this encounter Care Teams Entomology Teacher Relationship Specialty Start Date End Date Robert García MD [address] [facility] [address] [place] [address] PCP - General 08/17/23 documented as of this encounter
--- OUTSIDE RECORDS SUMMARY | 2025-02-10 15:06 | XMS_ITS | Clinical Summary ---
Author Organization [employer] Care Team Providers Care Child Life Specialist Name Role Phone Unavailable Primary Care [...]
--- OUTSIDE RECORDS SUMMARY | 2025-02-10 15:07 | XMS_ITS | Clinical Summary ---
Author Organization [facility] Address [address] [place] [address] Care Team Providers Care Manufacturing Engineering Professor Name Role Phone Unavailable Primary Care Provider Unavailabl e Source Comments [facility],non-owned Affiliates and Associated Physician Practices is amultiple site organization consisting of ambulatory clinics and hospital sitesin [place], [place], [place] and [place]. This disclosure is being madepursuant to the Care Everywhere program and may not contain all information available regarding this patient. Last updated 18.[facility] [employer] Social History Tobacco Use Types Packs/Day Years [...] Insurance [facility] Address: [facility] [address] [place] [address] [facility] [place]NOTE 2] [facility] SELF PAY NO INSURANCE Member Subscriber Plan / Payer (Ef fective for All Dates) Name:Holly Black Member ID:Not on file Relation to Subscriber:Not on file Subscriber ID:Not on file Payer ID:Not on file Group ID:Not on file Type:Self Pay Address: [facility] [facility] SELF PAY NO INSURANCE Member Subscriber Plan / Payer (Ef fective for All Dates) Name:Holly Black Member ID:Not on file Relation to Subscriber:Not on file Subscriber ID:Not on file Payer ID:Not on file Group ID:Not on file Type:Self Pay Address: [facility] SELF PAY NO INSURANCE Member Subscriber Plan / Payer (Ef fective for All Dates) Name:Holly Black Member ID:Not on file Relation to Subscriber:Not on file Subscriber ID:Not on file Payer ID:Not on file Group ID:Not on file Type:Self Pay Address: [place], [place]
--- OUTSIDE RECORDS SUMMARY | 2025-02-10 15:07 | XMS_ITS | Clinical Summary ---
Author Organization [facility] Address [address] [place] [address] Care Team Providers Care Fire Engineer Name Role Phone Robert García MD Primary [...] Doc Med [facility] 01/01/2025 MyChart Message Enc [facility] Interventional Pain Management Center [facility] [place] [address] [id number] [facility] Provider Pain Management Referral 12/29/2024 Orders Only [facility] - [address], [address] [place] [phone] Abiodun Red MD 12/29/2024 Results Follow-Up [facility] [address] [facility], [address] [place] [phone] Abiodun Red MD MRI LUMB SPINE WO CON 12/23/2024 8:17 AM CDT - 12/23/2024 11:59 PM CDT Hospital Encounter [facility] Open MRI [address] [place] [address] Abiodun Red MD Discharge Disposition: Home or Self Care (Routine Discharge) 12/23/2024 Travel 12/09/2024 Telephone [facility] [address] [facility], [address] [place] [phone] Abiodun Red MD Prior Authorization (Qulipta) 12/03/2024 8:20 AM CDT Office Visit [facility] [address] [facility], [address] [place] [phone] Abiodun Red MD Botox Procedure (botox 155 migraines) 12/03/2024 Scan HEALTH INFO SRVCS Scanned, Doc [facility] 12/03/2024 Telephone [facility] - [address] [place] [address] Abiodun Red MD Information 12/03/2024 Travel 12/01/2024 Telephone [facility] Medical [facility] Multispecialty Care - [facility] [address] [facility], [address] [place] [address] Abiodun Red MD Reschedule from Last 3 [...] on file Legal Sex Female 9:56 AM DETACKER Gender Identity Not on file Sexual Orientation Not on file Last Filed Vital Signs Vital Sign Reading Time Taken Comments Blood Pressure 119/76 12/03/2024 8:26 AM CDT Pulse 85 12/03/2024 8:26 AM CDT Temperature 36.2 C (97.2 F) 06/04/2024 9:49 AM DETACKER Respiratory Rate 12 12/03/2024 8:26 AM CDT [...] Description 02/25/2025 10:00 AM CDT [facility] [address] [facility], [address] [place] [phone] Abiodun Red MD 3 [place] [address] 07/02/2025 2:00 PM DETACKER [facility] [address] [facility], [address] [place] [phone] Marine Glover APRN [address] [place] [address] Health Maintenance Due Date Last Done Comments [...] Vaccines Completed 01/21/2007, 09/14/2006, 07/11/2006 PHQ-2 (Physician [place]) Completed 08/27/2024 Meningococcal B Vaccine Aged Out [...] 6:37 AM Narrative 12/29/2024 6:46 AM CDT [address] [address] EXAMINATION: MRI LUMB SPINE WO CON HISTORY: [...] abnormality. Procedure Note Virgilio Meyers, - 12/29/2024 [facility] [place] [address] EXAMINATION: MRI LUMB SPINE WO CON HISTORY: [...] Res ult from Last 3 Months Insurance [facility] BLUE SHIELD Care Teams Fire Engineer Relationship Specialty Start Date End Date Robert García MD [address] [address] [place] [phone] PCP - General 08/17/23
--- OUTSIDE RECORDS SUMMARY | 2025-02-10 15:07 | XMS_ITS | Referral Summary ---
Author Organization [address] Address [address] [place] [phone] Care Team Providers Care Form Tamper Operator Name Role Phone Saul Ruelas MD Primary Care Provider [phone] Abiodun Red MD Unavailable [phone] Issac Amador MD Unavailable [phone] Encounters Date Type Department Care Team Description 01/12/2025 1:30 PM CDT Office Visit [facility] Medical [facility] Pulmonary [place] [address] [place] [address] [place] [phone] Kelly Jeronimo NP TONY (obstructive sleep apnea) (Primary Dx); Primary insomnia 11/25/2024 11:15 AM CDT Office Visit [address] [phone] Vicenta Early PA Sicca complex [...] is currently on suboxone through pain management. [place] some relief with meloxicam so will resume [...] needed. Assessment & Plan (09/01/2024 12:03 PM ASSISTANT ANALYST): 44-year-old female with PMHx of HTN, HLD, [...] dosing due to hx GERD. Will contact olive picker for records. Follow up in 2 weeks. Sooner if needed. Seen with Dr. Amador. TONY (obstructive sleep apnea) 10/05/2020 Assessment & Plan (01/12/2025 2:03 PM CDT): The patient is intolerant of higher CPAP pressures, she will continue CPAP at 8 cm water pressure. She is aware that her AHI is elevated. DME adapt Assessment & Plan (07/01/2024 10:25 AM ASSISTANT ANALYST): Patient continue with CPAP at 8 cm water pressure while sleeping. She was intolerable of higher pressures in the past. DME is adapt. Assessment & Plan (06/28/2023 11:59 AM ASSISTANT ANALYST): Due to continued symptoms, the patient will continue CPAP at 8 cm water pressure. The patient has an elevated AHI, however she is intolerant of higher pressure. Denied need for supplies. DME adapt Assessment & Plan (06/27/2022 12:02 PM ASSISTANT ANALYST): Patient continue to wear CPAP at 8 cm water pressure while sleeping. Her DME is adapt. The patient did not tolerate an increase in her pressures in the past. Assessment & Plan (06/30/2021 11:05 AM ASSISTANT ANALYST): Patient continue to wear CPAP at 8 [...] masks. The patient denied need for supplies. [employer]. The patient and I discussed the recall [...] open while sleeping. The DME company is [employer]. The patient is benefitting from CPAP therapy. [...] person. Assessment & Plan (07/01/2024 10:25 AM ASSISTANT ANALYST): The patient continues with Lunesta 3 mg on most nights. Assessment & Plan (06/28/2023 11:58 AM ASSISTANT ANALYST): Due to continued symptoms, the patient will continue Lunesta 3 mg nightly. I have refilled the medication and will refill for 1 year Patient is aware that she should wear her CPAP machine if taking the medication. Assessment & Plan (06/27/2022 12:02 PM ASSISTANT ANALYST): The patient will continue with Lunesta 3 mg p.o. at bedtime to treat insomnia. Assessment & Plan (06/30/2021 11:04 AM ASSISTANT ANALYST): The patient will continue with Lunesta 3 [...] on file Legal Sex Female 9:00 AM ASSISTANT ANALYST Gender Identity Female 09/06/2024 3:20 PM ASSISTANT ANALYST Sexual Orientation Not on file Last Filed [...] Plan of Treatment Not on file Insurance [facility] Address: [place] [address] [place] [address] [facility] [employer] [facility] [address] [place] [address] BLUE [employer] [place] Care Teams Form Tamper Operator Relationship Specialty Start Date End Date Saul Ruelas MD PCP - General Family Medicine 08/25/20 Abiodun Red MD [address] [place] [address] Referring Physician Neurology 11/27/22 Issac Amador MD [address] [place] [address] Consulting Physician Rheumatology 07/23/24
--- OUTSIDE RECORDS SUMMARY | 2025-02-10 15:07 | XMS_ITS | Encounter Summary ---
Author Organization [facility] Address [address] [place] [address] Care Team Providers Care Aws Consultant Name Role Phone Robert García MD Primary Care Provider + Encounter Details Date Type Department Care Team (Latest Contact Info) Description 12/29/2024 Results Follow-Up [facility] Multispecialty Care - [facility] [address] [facility], [address] [place] [address] Abiodun Red MD 3 [place] [address] MRI LUMB SPINE WO CON Social History [...] on file Legal Sex Female 9:56 AM MANAGER TRACK Gender Identity Not on file Sexual Orientation Not on file documented as of this encounter Plan of Treatment Upcoming Encounters Date Type Department Care Team (Late st Contact Info) Description 02/25/2025 10:00 AM CDT Office Visit [facility] [address] [facility], [address] [place] [phone] Abiodun Red MD 3 [facility] [place] [address] 07/02/2025 2:00 PM MANAGER TRACK [facility] [address] [facility], [address] [place] [phone] Marine Glover APRN 3 [facility] [address] [place] [address] documented as of this encounter Visit Diagnoses Not on filedocumented in this encounter Additional Health Concerns Assessment Noted Time PHQ-9 Depression Total Score: 7 06/02/20 22 9:57 AM MANAGER TRACK documented as of this encounter Care Teams Aws Consultant Relationship Specialty Start Date End Date Robert García MD 3 [facility] [address] [place] [phone] PCP - General 08/17/23 documented as of this encounter
--- OUTSIDE RECORDS SUMMARY | 2025-02-10 15:07 | XMS_ITS | Encounter Summary ---
Author Organization [facility] Address [address] [place] [address] Care Team Providers Care Replanter Name Role Phone Saul Ruelas MD Primary Care Provider [phone] Robert García MD Primary Care Provider + Encounter Details Date Type Department Care Team (Late st Contact Info) Description 10/12/2020 Prep for Procedure [facility] Interventional Pain [place] [address] [id number] Sujey Yap NP [address] [facility] [address] [place] [phone] (Work) Social History Tobacco Use Types Packs/Day [...] on file Legal Sex Female 9:56 AM FISH BUTCHER Gender Identity Not on file Sexual Orientation [...] Description 02/25/2025 10:00 AM CDT Office Visit [facility] [address] [facility], [address] [place] [phone] Abiodun Red MD 3 [facility] [place] [address] 07/02/2025 2:00 PM FISH BUTCHER Office Visit [facility] [address] [facility], [address] [place] [address] Marine Glover APRN 3 [facility] [address] [place] [address] documented as of this encounter Visit Diagnoses Not on filedocumented in this encounter Care Teams Replanter Relationship Specialty Start Date End Date Saul Ruelas MD 3 [facility] [address] [place] [phone] PCP - General FAMILY PRACTICE 10/12/20 08/16/23 Robert García MD 3 [facility] [address] [place] [phone] PCP - General 08/17/23 documented as of this encounter
--- OUTSIDE RECORDS SUMMARY | 2025-02-10 15:07 | XMS_ITS | Encounter Summary ---
Author Organization [facility] Address [address] [place] [address] Care Team Providers Care Crop Or Grain Farmworker Name Role Phone Unavailable Primary Care Provider Unavailabl e Encounter Details Date Type Department Care Team (Late st Contact Info) Description 03/02/2022 Lab Requisition [facility] DermPath Lab [address] [place] [address] Niles George MD [address] [place] [address] Social History Tobacco Use Types Packs/Day Years [...] AM CDT) Case Report Dermatopathology Report Case: [id number] Authorizing Provider: Niles George MD Collected: 03/02/2022 12:00 AM Ordering Location: [facility] Care DermPath Lab Received: 03/02/2022 [...] determined by the Dermatopathology Laboratory at [facility], directed by Dr. Miguel Viramontes. These tests need not be, and therefore are not, approved by the [place] Food and Drug Administration. The tests are used for clinical purposes. Billing Codes Specimen Charges Stain Charges 21246 1 2 6:16 PM CDT DERMATOPATHOLOGY LABORATORY Embedded Images 2 6:16 PM CDT DERMATOPATHOLOGY LABORATORY Pathology/Cytolog y TISSUE SPECIMEN FROM SKIN / Unknown 03/02/2022 03/02/2022 5:15 PM CDT us Niles George MD LAB - PATHOLOGY/CYTOLOGY ORDERAB LES Final Result DERMATOPATHOLOGY LABORATORY [facility] - Department of Dermatology [address], [address] [phone] documented in this encounter Visit Diagnoses Not on filedocumented in this encounter
--- OUTSIDE RECORDS SUMMARY | 2025-02-10 15:07 | XMS_ITS | Encounter Summary ---
Author Organization [facility] Address [address] [place] [address] Care Team Providers Care Network Architect Name Role Phone Robert García MD Primary Care Provider + Encounter Details Date Type Department Care Team (Latest Contact Info) Description 01/01/[address] [facility] Interventional [place] [address] [id number] [facility] Provider Pain Management Referral Social History Tobacco [...] on file Legal Sex Female 9:56 AM UNLOADER Gender Identity Not on file Sexual Orientation Not on file documented as of this encounter Plan of Treatment Upcoming Encounters Date Type Department Care Team (Late st Contact Info) Description 02/25/2025 10:00 AM CDT Office Visit [facility] Group Multispecialty Care - [facility] [address] [facility], [address] [place] [phone] Abiodun Red MD 3 [facility] [place] [address] 07/02/2025 2:00 PM UNLOADER Office Visit [facility] Medical Group Multispecialty Care - [facility] [address] [facility], [address] [place] [phone] Marine Glover APRN 3 [facility] [address] [place] [address] documented as of this encounter Visit Diagnoses Not on filedocumented in this encounter Additional Health Concerns Assessment Noted Time PHQ-9 Depression Total Score: 7 06/02/20 22 9:57 AM UNLOADER documented as of this encounter Care Teams Network Architect Relationship Specialty Start Date End Date Roebrt García MD 3 [facility] [address] [place] [phone] PCP - General 08/17/23 documented as of this encounter
[2025-02-10 15:43] LABS: INR 1.1; Prothrombin Time 14.1 Seconds (11.1-14.7)
[2025-02-10 15:44] LABS: Partial Thromboplastin Time 50.3 Seconds (22.3-36.8)
[2025-02-10] MEDS: PIPERACILLIN/TAZOBACTAM SOD 3.375 GM in SODIUM CHLORIDE 0.9% IV 50 ML 100 ML IVPB (17:04)
[2025-02-10 17:59] LABS: Appearance Pleural Fluid Hazy (Clear); Color Pleural Fluid Yellow (Colorless)
[2025-02-10 18:10] LABS: Nucleated Cell Pleural Fluid 5860 /uL (0-1000)
[2025-02-10 18:13] LABS: Lymphocytes Pleural Fluid 18 %; Monocytes Pleural Fluid 4 %
[2025-02-10 18:16] LABS: Neutrophils Pleural Fluid 78 % (0-25)
--- NOTE | 2025-02-10 19:08 | ED_ITS ---
HPI - SOB/Dyspnea General Chief Complaint: Shortness of Breath/Dyspnea Stated Complaint: SOB Time Seen by Provider: 02/10/25 14:52 Source: patient Mode of arrival: ambulatory Limitations: no limitations History of Present Illness HPI Narrative: 44-year-old with a history of CVA with mild speech impediment, chronic back pain on buprenorphine , cyclobenzaprine. She also states that she has a history of anxiety on Ativan. Presents to the ER with a complaint of shortness of breath. He was seen in the urgent care few days ago was given antibiotic however symptoms progressively getting worse. Has no fever or cough. Had surgery to her foot is on walking boot MD elicited complaint: shortness of breath Associated symptoms: denies other symptoms Related Data Home oxygen amount: none Home Medications ?Medication ?Instructions ?Recorded ?Confirmed ?Last Taken ?Type aspirin 81 mg tablet,delayed 81 mg PO DAILY 11/21/22 01/08/25 10/21/24 History release (Adult Aspirin Regimen) atorvastatin 40 mg tablet (Lipitor) 40 mg PO DAILY 11/21/22 01/08/25 10/22/24 History buprenorphine 8 mg-naloxone 2 mg 1 tablet sublingual TID 11/21/22 01/08/25 10/22/24 History sublingual tablet buspirone 15 mg tablet 15 mg PO DAILY 11/21/22 01/08/25 10/23/24 History duloxetine 60 mg capsule,delayed 60 mg PO DAILY 11/21/22 01/08/25 10/23/24 History release fexofenadine 180 mg tablet 180 mg PO DAILY 11/21/22 01/08/25 10/22/24 History (Robyn Allergy) levothyroxine 137 mcg tablet 137 mcg PO DAILY 11/21/22 01/08/25 10/23/24 History (Synthroid) mometasone 50 mcg/actuation nasal 2 spray intranasal DAILY PRN 11/21/22 01/08/25 10/22/24 History spray Shortness Of Breath Or Wheezing mv-mn-folic 200 mcg-vit K 15 1 cap PO BID 11/21/22 01/08/25 10/20/24 History mcg-lutein 5 mg-zeaxanthin 1 mg capsule (PreserVision AREDS 2 Plus Multivit) omeprazole 20 mg capsule,delayed 20 mg PO DAILY 11/21/22 01/08/25 10/22/24 History release pilocarpine HCl 5 mg tablet 5 mg PO TID 11/21/22 01/08/25 10/22/24 History pregabalin 150 mg capsule (Lyrica) 150 mg PO BID 11/21/22 01/08/25 10/23/24 History sumatriptan succinate 100 mg tablet See Rx Instructions PO .COMPLEX 11/21/22 01/08/25 Unknown History topiramate 50 mg tablet (Topamax) 50 mg PO TID 11/21/22 01/08/25 10/22/24 History atogepant 60 mg tablet (Qulipta) 60 mg PO DAILY 06/13/24 01/08/25 10/22/24 History cyclobenzaprine 10 mg tablet 10 mg PO TID 06/13/24 01/08/25 10/22/24 History erenumab-aooe 70 mg/mL 70 mg subcut DIRECTED 06/13/24 01/08/25 Unknown History subcutaneous auto-injector (Aimovig Autoinjector) trazodone 100 mg tablet 100 mg PO DIRECTED PRN insomnia 06/13/24 01/08/25 Unknown History lidocaine 1.8 % topical patch 1 patch topical DAILY 06/26/24 01/08/25 Unknown History omega 9-wqe-dgm-fish oil 60 mg-90 1 cap PO DAILY 06/26/24 01/08/25 10/20/24 History mg-500 mg capsule (Fish Oil) Allergies Allergy/AdvReac Type Severity Reaction Status Date / Time No Known Allergies Allergy Verified 02/06/25 10:50 Review of Systems 2 Review of Systems: All systems reviewed & are unremarkable except as noted in HPI and below Constitutional: Constitutional: Reports no additional constitutional complaints Eyes: Eyes: Reports no additional eye complaints ENT: Reports system reviewed and no additional complaints, except as documented Cardiovascular: Cardiovascular: Reports no additional cardiovascular complaints Respiratory: Respiratory: Reports as per HPI Gastrointestinal: Gastrointestinal: Reports no additional gastrointestinal complaints Musculoskeletal: Musculoskeletal: Reports no additional musculoskeletal complaints Integumentary/Breasts: Skin/Breast: Reports system reviewed and no additional complaints, except as docu Neurologic: Reports system reviewed and no additional complaints, except as documented [facility] Past Medical History Medical History Radial head fracture, closed Distal radius fracture, right Thompson's neuroma of right foot (~2016) Abdominal hernia (~2011) Previous gastric bypass complicating , antepartum (~2007) Surgical History Surgical History Hx of cholecystectomy (~2009) History of (~2007) Family History Family History Unknown Hypertension Depression Diabetes mellitus Cerebrovascular accident Social History Social History Smoking status: Never smoker Alcohol intake: never Substance use: never Substance use type: does not use Do You Feel Safe in your Home?: Yes Lack of Transportation: No Lack of Food: Never True Current Housing: I Have Housing Concerned About Future Housing: No Difficulty Paying Gas/Electric Bills: No Difficulty Paying for Meds: No Currently Unemployed: No Education: Associate Degree Difficulty w/ Childcare or Family Care: No Living arrangements: with family Occupation/Education: occupation 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 HEAD: Normocephalic, atraumatic. EYES: PERRLA and EOMI. ENT: Nares clear, no rhinorrhea or epistaxis. Mucous membranes moist. NECK: Supple. CHEST: Clear to auscultation. No respiratory distress. HEART: Regular rate and rhythm. No murmur heard. Normal peripheral pulses. ABDOMEN: Soft, nontender, nondistended, normal active bowel sounds. EXTREMITIES: Normal range of motion. No edema. left foot in the walking boot SKIN: Warm, dry, no rash. NEURO: No focal deficits. Alert and oriented x3. PSYCH: Normal mood and affect. Course Course Emergency Course: I did review the lab work and x-ray findings with the patient. She has pretty decent sized pleural effusion on the right on the plain x-ray did a CT scan which shows a loculated pleural effusion she was sent for thoracentesis however the radiologist was unable to get was at 100 mL of fluid as the fluid is loculated. Speech she sees notified patient about transfer to a facility with CT surgery. Discussed with Dr. Amari will consult ,pt is accepted to [facility] under the hospitalist. Vital Signs Vital signs: Vital Signs Temperature 36.6 C 02/10/25 12:12 Pulse Rate 125 H 02/10/25 12:12 Respiratory Rate 22 H 02/10/25 12:12 Blood Pressure 115/84 02/10/25 12:12 Pulse Oximetry 92 02/10/25 12:12 Oxygen Delivery Room Air 02/10/25 12:12 Temperature 36.6 C 02/10/25 18:01 Pulse Rate 110 H 02/10/25 18:01 Respiratory Rate 18 02/10/25 18:01 Blood Pressure 118/86 02/10/25 18:01 Pulse Oximetry 94 02/10/25 18:01 Oxygen Delivery Room Air 02/10/25 12:12 MDM - SOB/Dyspnea Lab Data 02/10/25 12:40 02/10/25 12:40 Labs: Lab Results 02/10/25 02/10/25 Range/Units 12:40 16:28 WBC 20.3 H (4.5-10.0) K/mm3 RBC 4.59 (4.2-5.4) M/mm3 Hgb 14.2 (12.0-15.0) g/dL Hct 43.7 (37.0-47.0) % MCV 95.2 (80-100) fl MCH 30.9 (26-34) pg MCHC 32.5 (32-36) g/dl RDW 12.5 (11.5-14.5) % Plt Count 407 H D (150-375) k/mm3 MPV 9.4 (7.4-10.4) fl Immature Gran % (Auto) 2.2 H (0-0.5) % Neut % (Auto) 75.6 H (45.5-73.1) % Lymph % (Auto) 12.0 L (18.3-44.2) % [place]ble % (Auto) 9.2 H (2.6-8.5) % Eos % (Auto) 0.3 (0-4.4) % Baso % (Auto) 0.7 (0.2-1.2) % Lymph # (Auto) 2.43 (0.9-3.2) K/mm3 [place]ble # (Auto) 1.9 H (0.1-0.6) K/mm3 Eos # (Auto) 0.1 (0-0.3) K/mm3 Baso # (Auto) 0.2 H (0.0-0.1) K/mm3 Abs Immat Gran (auto) 0.44 H (0.00-0.031) K/mm3 Absolute Neuts (auto) 15.3 H (1.3-6.7) K/mm3 Absolute Nucleated RBC 0.000 (0.0-0.012) K/mm3 Nucleated RBC % 0.0 (0.0-0.2) % PT 14.1 (11.1-14.7) Seconds INR 1.1 APTT 50.3 H (22.3-36.8) Seconds Sodium 130 L (137-145) mmol/L Potassium 4.3 (3.4-5.0) mmol/L Chloride 94 L (98-107) mmol/L Carbon Dioxide 27 (22-30) mmol/L Anion Gap 9 (4-12) mmol/L BUN 17 (7-17) mg/dL Creatinine 0.93 (0.7-1.0) mg/dL Estim Creat Clear Calc 97 ml/min Estimated GFR > 60 (59 - ) Glucose 103 (65-110) mg/dL Calcium 9.3 (8.4-10.2) mg/dL Total Bilirubin 0.4 (0.2-1.3) mg/dL AST 21 (14-36) U/L ALT 23 (6-35) U/L Alkaline Phosphatase 157 H (38-126) U/L Total Protein 5.3 L (6.3-8.2) g/dL Albumin 2.8 L (3.5-5.1) g/dL Fluid Glucose Pending Fluid Total Protein Pending Pleural Fluid Source Pleural fluid Pleural Color Yellow (Colorless) Pleural Appearance Hazy (Clear) Pleural pH < 7.500 (7.210-7.500) Pleural RBC < 2000 (0-13344) /uL Pleural Nuc Cells 5860 H (0-1000) /uL Pleural Neutrophils 78 H (0-25) % Pleural Lymphocytes 18 % Pleural Monocytes 4 % Pleural Total Protein Cancelled Pleur Adenosine Deamin Cancelled Miscellaneous Test Pending Discharge Plan Discharge Clinical Impression: Loculated pleural effusion Pneumonia Qualifiers: Pneumonia type: due to unspecified organism Laterality: right Lung location: u nspecified part of lung Qualified Code(s): J18.9 - Pneumonia, unspecified organism Patient Disposition: Acute Care Hospital Condition: Stable Patient Language: Australian Prescriptions: No Action cyclobenzaprine 10 mg tablet 10 mg PO TID trazodone 100 mg tablet 100 mg PO DIRECTED PRN (Reason: insomnia) Aimovig Autoinjector 70 mg/mL auto-injector 70 mg SUBCUT DIRECTED Qulipta 60 mg tablet 60 mg PO DAILY azithromycin 250 mg tablet See Rx Instructions .ROUTE .COMPLEX Qty: 6 0RF Rx Instructions: For 250 mg dose pack: take 500 mg today (day 1), then 250 mg for 4 days (days 2-5) amoxicillin-pot clavulanate 875-125 mg tablet 1 tablet PO Q12H 5 Days Qty: 10 0RF levothyroxine [Synthroid] 137 mcg tablet 137 mcg PO DAILY omeprazole 20 mg capsule,delayed release(DR/EC) 20 mg PO DAILY mometasone 50 mcg/actuation spray,non-aerosol 2 spray intranasal DAILY PRN (Reason: Shortness Of Breath Or Wheezing) Rx Instructions: administer into each nostril topiramate [Topamax] 50 mg tablet 50 mg PO TID sumatriptan succinate 100 mg tablet See Rx Instructions PO .COMPLEX Rx Instructions: take 1 tab at onset of headache; if no relief, may repeat 1 tab after at least 2 hrs; max = 2 tabs/24 hrs PO fexofenadine [Robyn Allergy] 180 mg tablet 180 mg PO DAILY atorvastatin [Lipitor] 40 mg tablet 40 mg PO DAILY pregabalin [Lyrica] 150 mg capsule 150 mg PO BID aspirin [Adult Aspirin Regimen] 81 mg tablet,delayed release (DR/EC) 81 mg PO DAILY buprenorphine-naloxone 8-2 mg tablet, sublingual 1 tablet sublingual TID pilocarpine HCl 5 mg tablet 5 mg PO TID PreserVision AREDS 2 Plus MV 200 mcg-15 mcg- 5 mg-1 mg capsule 1 cap PO BID duloxetine 60 mg capsule,delayed release(DR/EC) 60 mg PO DAILY buspirone 15 mg tablet 15 mg PO DAILY omega 3-psd-apm-fish oil [Fish Oil] 60-90-500 mg capsule 1 cap PO DAILY lidocaine 1.8 % adhesive patch,medicated 1 patch topical DAILY Rx Instructions: leave on most painful area for up to 12 hrs nebivolol [Bystolic] 5 mg tablet 5 mg PO DAILY Qty: 30 5RF ondansetron 4 mg tablet,disintegrating 4 mg PO Q8H PRN (Reason: nausea and vomiting) Qty: 30 0RF meloxicam 15 mg tablet 15 mg PO DAILY Qty: 30 1RF Follow-up/Referrals: UNKNOWN,DOCTOR [Primary Care Provider] - Time of Disposition: 19:58
[2025-02-10] MEDS: BUPRENORPHINE HCL (*CRX) 8 MG SUBLINGUAL TABLET SUBLINGUAL (19:53)
[2025-02-10] MEDS: LORazepam (*CRX) 1 MG TABLET PO (19:53)
--- NOTE | 2025-02-10 20:28 | PC.NURSE ---
Pt moved to ER RM 13 an placed in hospital bed for comfort pending transfer to [facility]. Pt ambulatory to . Ice water provided and brought food for pt to eat. Pt denies any additional needs at this time. Pt on operations research engineer and continuous pulse ox. Call light within reach.
--- NOTE | 2025-02-10 21:12 | PC.NURSE ---
This RN recie[facility] a bed [facility] Pt going to [facility] 276 - 2. # for report is [phone]. This RN called report to Monse DUDLEY. EMS ETA 2-3 hours.
[2025-02-12 13:09] LABS: Glucose, Body Fluid <2 mg/dL (.)
== END 2025-02-10 23:15 | disposition short-term general hospital (02) ==
PROVIDERS: Emergency Medicine; Emergency Provider Family Medicine
DX: J18.9 Pneumonia, unspecified organism (principal); J90 Pleural effusion, not elsewhere classified; I69.928 Other speech and language deficits following unspecified cerebrovascular disease; G89.29 Other chronic pain; M54.9 Dorsalgia, unspecified; F41.9 Anxiety disorder, unspecified; Z98.84 Bariatric surgery status; Z90.49 Acquired absence of other specified parts of digestive tract; Z79.82 Long term (current) use of aspirin; Z79.899 Other long term (current) drug therapy; R00.0 Tachycardia, unspecified; R94.31 Abnormal electrocardiogram [ECG] [EKG]
CPT/HCPCS: 32555; 36415; 71046; 71260; 80053; 82945; 83986; 84311; 85025; 85610; 85730; 87040; 89051; 93005; 96365; 99285; A9270; J0571; J2543; Q9967

== ENCOUNTER 2025-02-26 10:00 | Outpatient (CLI) | payer BC, OTHER, SELFPAY ==
--- OUTSIDE RECORDS SUMMARY | 2025-02-26 10:17 | XMS_ITS | Encounter Summary ---
Author Organization [facility] Address [address] [place] [address] Care Team Providers Care Dinkey Motor Operator Name Role Phone Saul Ruelas MD Primary Care Provider [phone] Robert García MD Primary Care Provider + Encounter Details Date Type Department Care Team (Late st Contact Info) Description 10/12/2020 Prep for Procedure [facility] [place] [address] [id number] Sujey Yap NP 3 [facility] [address] [place] [phone] (Work) Social History Tobacco Use Types Packs/Day [...] on file Legal Sex Female 9:56 AM GUARD CAPTAIN Gender Identity Not on file Sexual Orientation [...] Care Team (Late st Contact Info) Description 05/27/2025 9:40 AM GUARD CAPTAIN Office Visit [facility] [address] [facility], [address] [place] [phone] Abiodun Red MD 3 [facility] [place] [address] 07/02/2025 2:00 PM GUARD CAPTAIN Office Visit [facility] [address] [facility], [address] [place] [phone] Marine Glover APRN 3 [facility] [address] [place] [address] documented as of this encounter Visit Diagnoses Not on filedocumented in this encounter Care Teams Dinkey Motor Operator Relationship Specialty Start Date End Date Saul Ruelas MD 3 [facility] [address] [place] [phone] PCP - General FAMILY PRACTICE 10/12/20 08/16/23 Robert García MD 3 [facility] [address] [place] [phone] PCP - General 08/17/23 documented as of this encounter
--- OUTSIDE RECORDS SUMMARY | 2025-02-26 10:17 | XMS_ITS | Encounter Summary ---
Author Organization [facility] Address [address] [place] [address] Care Team Providers Care Post Commander Name Role Phone Robert García MD Primary Care Provider + Encounter Details Date Type Department Care Team (Latest Contact Info) Description 12/29/2024 Results Follow-Up [facility] Multispecialty Care - [facility] [address] [facility], [address] [place] [address] Abiodun Red MD 3 [place] [address] MRI LUMB SPINE WO CON Social History [...] file Legal Sex Female 9:56 AM CONCRETE FINISHER APPRENTICE Gender Identity Not on file Sexual Orientation Not on file documented as of this encounter Plan of Treatment Upcoming Encounters Date Type Department Care Team (Late st Contact Info) Description 05/27/2025 9:40 AM CONCRETE FINISHER APPRENTICE [facility] [address] [facility], [address] [place] [phone] Abiodun Red MD 3 [facility] [place] [address] 07/02/2025 2:00 PM CONCRETE FINISHER APPRENTICE [facility] [address] [facility], [address] [place] [phone] Marine Glover APRN 3 [facility] [address] [place] [address] documented as of this encounter Visit Diagnoses Not on filedocumented in this encounter Additional Health Concerns Assessment Noted Time PHQ-9 Depression Total Score: 7 06/02/20 22 9:57 AM CONCRETE FINISHER APPRENTICE documented as of this encounter Care Teams Post Commander Relationship Specialty Start Date End Date Robert García MD 3 [facility] [address] [place] [phone] PCP - General 08/17/23 documented as of this encounter
--- OUTSIDE RECORDS SUMMARY | 2025-02-26 10:17 | XMS_ITS | Clinical Summary ---
Author Organization [facility] Care Team Providers Care [facility] Nurse Name Role Phone Unavailable Primary Care [...] 19+ 3-dose series) 1999 Pap Smear 2001 Human Papillomavirus (HPV) Immunization (1 - 3-dose SCDM series) 2007 Cervical Cancer Screening (CCS) 2010 HPV/Cotest 2010 SARS-COV-2 Immunization (3 2023- season) 2024 10/21/2020, 09/28/2020 Influenza Immunization (#1) [...]
--- OUTSIDE RECORDS SUMMARY | 2025-02-26 10:17 | XMS_ITS | Clinical Summary ---
Author Organization [facility] Address [address] [place] [address] Care Team Providers Care Shake Packer Name Role Phone Robert García MD Primary Care Provider + Allergies Active Allergy Reactions Criticality Noted Date Comments Lorazepam Other (see comment) 02/25/2025 Oxycodone Other (see comment) 02/25/2025 Zolpidem Other (see comment) 02/25/2025 Medications topiramate 50 MG Tab 100 in [...] amitriptyline 25 MG tablet 08/17/19 21 Active methylPREDNISolon e, ROLAND, (MEDROL) 4 MG [...] lidocaine (LIDODERM) 5 % 09/04/19 23 Active divalproex ER (DEPAKOTE) 250 MG [...] SKIN EVERY 30 DAYS 1 mL 08/25/19 Active SUMAtriptan (IMITREX) 100 MG tabletIndications :Other [...] TABLET(60 MG) BY MOUTH DAILY 30 tablet 12/18/19 25 Active acetaminophen (TYLENOL) 325 MG tablet Take 2 tablets (650 mg total) by mouth as needed. 02/20/20 25 2024 Active azithromycin (ZITHROMAX) 250 MG tablet Take 1 tablet (250 mg total) by mouth daily. 02/07/20 25 Active cycloSPORINE (RESTASIS) 0.05 % ophthalmic emulsion Apply 1 drop to eye 2 (two) times daily. Active cefdinir (OMNICEF) 300 MG Cap capsule Take 1 capsule (300 mg total) by mouth 2 (two) times daily. 02/20/20 25 2024 Active clobetasol (TEMOVATE) 0.05 % ointment Apply 1 Application topically as needed. Active diclofenac sodium (VOLTAREN) 1 % gel Apply 2 g topically as needed. Active docusate sodium (COLACE) 100 MG capsule Take 1 capsule (100 mg total) by mouth as needed. Active hydrOXYzine (VISTARIL) 50 MG capsule Take 1 capsule (50 mg total) by mouth 4 (four) times daily as needed. 01/24/20 25 Active meloxicam (MOBIC) 7.5 MG tablet Take 1 tablet (7.5 mg total) by mouth daily. Active Multiple Vitamins-Minerals (PRESERVISION AREDS 2) Cap Take 2 capsules by mouth daily. Active mupirocin (BACTROBAN) 2 % ointment Apply topically as needed. 01/29/20 25 Active sertraline (ZOLOFT) 25 MG tablet Take 1 tablet (25 mg total) by mouth daily. Active ZEPBOUND 2.5 MG/0.5ML injection Inject 2.5 mg into the skin once a week. Active traZODone (DESYREL) 100 MG tablet Take 1 tablet (100 mg total) by mouth nightly at bedtime. Active tacrolimus (PROTOPIC) 0.1 % ointment Apply topically as needed. 02/24/20 25 Active rimegepant (NURTEC) 75 MG disintegrating tabletIndications :Migraine without aura, not intractable, without status migrainosus Take 1 tablet (75 mg total) by mouth daily as needed for Migraine. 16 tablet 11 02/22/20 22 2024 Disconti nued(The rapy complete d) rimegepant (NURTEC) 75 MG disintegrating tabletIndications :Migraine without aura, not intractable, without status migrainosus Take 1 tablet (75 mg total) by mouth as needed for Migraine. 16 tablet 11 10/28/19 23 2024 Disconti nued(Dup licate Med) Active Problems Problem Noted Date Diagnosed Date Abnormal weight gain 02/25/2025 ADD (attention deficit disorder) 02/25/2025 Overview (02/25/2025): Possibly. I just want to be evaluated. History of bariatric surgery 02/25/2025 Numbness of hand 02/25/2025 Other obesity due to excess calories 02/25/2025 Hypothyroidism 02/11/2025 Loculated pleural effusion 02/11/2025 Obesity (BMI 30-39.9) 02/11/2025 Polyarthralgia 11/25/2024 Sicca complex ([facility]) 09/01/2024 Overview (02/25/2025): 09/01/24: CBC nl, CMP nl, ESR 9, [...] significant power Doppler inflammation or erosion seen Dyslipidemia 12/05/2023 Essential hypertension 12/05/2023 History of cerebrovascular accident 12/05/2023 Atypical chest pain 05/24/2023 Dyspnea on exertion 05/24/2023 Edema 05/24/2023 Chronic migraine without aur a without status migrainosus, not intractable 09/29/2022 Depression 05/16/2022 Obstructive sleep apnea syndrome 10/05/2020 Primary insomnia 10/05/2020 Lumbar spondylosis 01/14/2019 Spasm 01/14/2019 Thompson's neuroma of right foot 12/16/2018 Opioid dependence ([facility]) 11/06/2018 Sacroiliac joint pain 11/06/2018 Anxiety 10/08/2012 Stroke ([facility]) 10/08/2012 Chronic back pain 02/20/2010 Encounters Date Type Department Care Team Description 02/25/2025 1:00 PM CDT Office Visit [facility] 3 [facility], [address] [place] [address] Abiodun Red MD Botox Procedure (Chronic migraine) 02/25/2025 Scan [facility] SRVCS Scanned, [facility] 02/25/2025 Travel 01/26/2025 Scan [facility] Scanned, [facility] 01/12/2025 Scan [facility] Scanned, [facility] 01/01/2025 MyChart Message Enc [facility] Interventional [facility] Management [facility] [place] [address] [id number] Chastity, [facility] Provider Pain Management Referral 12/29/2024 Orders Only [facility] [address] [facility], [address] [place] [address] Abiodun Red MD 12/29/2024 Results Follow-Up [facility] [address] [facility], [address] [place] [address] Abiodun Red MD MRI LUMB SPINE WO CON 12/23/2024 8:17 AM CDT - 12/23/2024 11:59 PM CDT Hospital Encounter [facility] Open MRI [address] [place] [address] Abiodun Red MD Discharge Disposition: Home or Self Care (Routine Discharge) 12/23/2024 Travel 12/09/2024 Telephone [facility] [address] [facility], [address] [place] [phone] Abiodun Red MD Prior Authorization ([employer]ulipta) 12/03/2024 8:20 AM CDT Office Visit [facility] Multispecialty [facility] - [address], [address] [place] [address] Abiodun Red MD Botox Procedure (botox 155 migraines) 12/03/2024 Scan [facility] INFO SRVCS Scanned, [facility] 12/03/2024 Telephone [facility] - [address] [place] [phone] Abiodun Red MD Information 12/03/2024 Travel 12/01/2024 Telephone [facility] - [address], [address] [place] [address] Abiodun Red MD Reschedule from Last 3 [...] on file Legal Sex Female 9:56 AM RELOCATION COUNSELOR Gender Identity Not on file Sexual Orientation Not on file Last Filed Vital Signs Vital Sign Reading Time Taken Comments Blood Pressure 112/78 02/25/2025 1:05 PM CDT Pulse 90 02/25/2025 1:05 PM CDT Temperature 36.6 C (97.8 F) 02/25/2025 1:05 PM CDT Respiratory Rate 18 02/25/2025 1:05 PM CDT Oxygen Saturation 96% 02/25/2025 1:05 PM CDT Inhaled Oxygen Concentration - - Weight 117.9 kg (260 lb) 02/25/2025 1:05 PM CDT Height 177.8 cm (5' 10) 02/25/2025 1:05 PM CDT Body Mass Index 37.31 02/25/2025 1:05 PM CDT Plan of Treatment Upcoming Encounters Date Type Department Care Team (Late st Contact Info) Description 05/27/2025 9:40 AM RELOCATION COUNSELOR Office Visit [facility] [address] [facility], [address] [place] [address] Abiodun Red MD [address] [place] [address] 07/02/2025 2:00 PM RELOCATION COUNSELOR Office Visit [facility] 3 [facility], [address] [place] [address] Marine Glover APRN 3 [facility] [address] [place] [address] Health Maintenance Due Date Last Done Comments Cervical Cancer Screening Pa p Smear (Age 30 to 64) Every 3 Years 1980 Annual Physical 1983 Hepatitis C 1998 Hepatitis B Vaccines (1 of 3 - 19+ 3-dose series) 1999 Pneumococcal Vaccine: Pediatrics (0 to 5 Years) and At-Risk Patients (6 to 49 Years) (1 of 2 - PCV) 1999 Cervical Cancer Screening Pa p with HPV Testing (Age 30 to 64) Every 5 Years 2010 Cervical Cancer Screening wi th HPV 2010 Mammogram Screening 2020 COVID-19 Vaccine (3 - Pfizer risk series) 11/18/2020 10/21/2020, 09/28/2020 DTaP, Tdap and Td Vaccines ( 3 - Td or Tdap) 03/04/2028 03/04/2018, 05/28/2012, 04/21/2002 HPV Vaccines Completed 01/21/2007, 09/14/2006, 07/11/2006 PHQ-2 (Physician Ione) Completed 08/27/2024 Meningococcal B Vaccine Aged Out [...] 6:37 AM Narrative 12/29/2024 6:46 AM CDT [address] [address] EXAMINATION: MRI LUMB SPINE WO CON HISTORY: [...] abnormality. Procedure Note Virgilio Meyers, - 12/29/[address] [address] EXAMINATION: MRI LUMB SPINE WO CON HISTORY: [...] By: Virgilio Meyers DO, 12/29/2024 6:37 AM Abiodun Red MD MRI Final Res ult from Last 3 Months Insurance [facility] [place] Care Teams Shake Packer Relationship Specialty Start Date End Date Robert García MD 3 [facility] [address] [place] [phone] PCP - General 08/17/23
--- OUTSIDE RECORDS SUMMARY | 2025-02-26 10:17 | XMS_ITS | Encounter Summary ---
Author Organization [facility] Address [address] [place] [address] Care Team Providers Care Edge Trimming Machine Operator Name Role Phone Robert García MD Primary Care Provider + Encounter Details Date Type Department Care Team (Late Contact Info) Description 01/22/2024 GoGarden Message Enc [facility] - [address], [address] [place] [phone] [facility], [facility] Provider prescription Social History Tobacco [...] on file Legal Sex Female 9:56 AM READING INTERVENTION TEACHER Gender Identity Not on file Sexual Orientation Not on file documented as of this encounter Plan of Treatment Upcoming Encounters Date Type Department Care Team (Late Contact Info) Description 05/27/2025 9:40 AM READING INTERVENTION TEACHER Office Visit [facility] - [address], [address] [place] [phone] Abiodun Red MD 3 [facility] [place] [address] 07/02/2025 2:00 PM READING INTERVENTION TEACHER Office Visit [facility] Group Multispecialty Care - [facility] 3 [facility], [address] [place] [address] Marine Glover APRN [address] [facility] [address] [place] [address] documented as of this encounter Visit Diagnoses Not on filedocumented in this encounter Additional Health Concerns Assessment Noted Time PHQ-9 Depression Total Score: 7 06/02/20 22 9:57 AM READING INTERVENTION TEACHER documented as of this encounter Care Teams Edge Trimming Machine Operator Relationship Specialty Start Date End Date Robert García MD 3 [facility] [address] [place] [address] PCP - General 08/17/23 documented as of this encounter
--- OUTSIDE RECORDS SUMMARY | 2025-02-26 10:17 | XMS_ITS | Clinical Summary ---
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 TAKE 1 TABLET BY MOUTH AT ONSET AND 1 TABLET 2 HOURS LATER. MAX OF 2 TABLETS IN 24 HOURS 08/17/19 21 Active topiramate (TOPAMAX) 50 mg tablet Take 1 tablet (50 mg total) by mouth 2 (two) times a day 09/16/19 21 Active omeprazole (PriLOSEC) 20 mg capsule Take 1 capsule (20 mg total) by mouth daily Active nebivoloL (BYSTOLIC) 5 mg tablet Take 1 tablet (5 mg total) by mouth daily Active lidocaine (LIDODERM) 5 % Place 3 patches on the skin daily To lower back and each shoulder 03/11/20 21 Active buprenorphine-n aloxone (SUBOXONE) 8-[address] 1 Film under the tongue 3 times a day 06/15/20 21 Active Monoject Safety Luer Lock Tip 3 mL syringe 04/17/20 21 Active aspirin 81 mg enteric coated tablet Take 1 tablet (81 mg total) by mouth daily Active Qulipta 60 mg tablet Take 1 tablet by mouth daily 12/13/19 24 Active busPIRone (BUSPAR) 15 mg tablet Take 1 tablet (15 mg total) by mouth 3 (three) times a day Active DULoxetine DR (CYMBALTA) 60 mg capsule Take 1 tablet by mouth daily Active Aimovig Autoinjector 70 mg/mL auto-injector subcutaneous injection 1 mL (70 mg total) every 30 (thirty) days Active hydrOXYzine (VISTARIL) 50 mg capsule TAKE [...] NEEDED Active traZODone (DESYREL) 100 mg tablet Take 1 tablet (100 mg total) by mouth nightly as needed for sleep Active omega-3 fatty acids-fish oil 300-1,000 mg capsule Take 2 capsules (2 g total) by mouth daily Active ferrous sulfate ER 324 mg (65 mg iron) EC tabletIndicatio ns:Iron Deficiency Anemia Take 65 mg by mouth daily with breakfast Active meloxicam (MOBIC) 7.5 mg tablet Take 1 tablet (7.5 mg total) by mouth daily 30 tablet 2 11/26/19 25 2025 Active clobetasoL (TEMOVATE) 0.05 % ointment Apply 1 Application topically 2 (two) times a day as needed (rash) To fingers Active pilocarpine (SALAGEN) 5 mg tablet Take 1 tablet (5 mg total) by mouth 3 (three) times a day Active diclofenac sodium (VOLTAREN) 1 % gel Apply 2 g topically 3 (three) times a day as needed (pain) Apply to lower back and shoulders Active QUEtiapine (SEROquel) 25 mg tablet Take 1 tablet (25 mg total) by mouth nightly Active sertraline (ZOLOFT) 25 mg tablet Take 1 tablet (25 mg total) by mouth daily Active tirzepatide, weight loss, (Zepbound) 2.5 mg/0.5 mL pen injector Inject 0.5 mL (2.5 mg total) under the skin every 7 days Sunday Active vit C,U-Nt-yxojo-andrea tein-zeaxan 250-90-40-1 mg capsule Take 2 capsules by mouth daily Active cycloSPORINE (RESTASIS) 0.05 % ophthalmic emulsion Administer 1 drop into both eyes 2 (two) times a day Active fluticasone propionate (FLONASE) 50 mcg/actuation nasal spray Administer 1 spray into each nostril daily Active eszopiclone (LUNESTA) 3 mg tabletIndicatio ns:Insomnia Take 1 tablet (3 mg total) by mouth nightly Take immediately before bedtime 30 tablet 3 02/18/20 25 Active acetaminophen (TYLENOL) 325 mg tabletIndicatio ns:Fever,Pain Take 2 tablets (650 mg total) by mouth every 6 (six) hours as needed for pain, headaches or fever 30 tablet 1 02/20/20 25 2024 Active buprenorphine (BUTRANS) 20 mcg/hourIndicat ions:opioid use disorder Place 1 patch on the skin once for 7 days for 1 dose 1 patch 02/20/20 25 Active cefdinir (OMNICEF) 300 mg capsuleIndicati ons:Pneumonia, Community Acquired Take 1 capsule (300 mg total) by mouth 2 (two) times a day for 13 doses 13 capsule 02/20/20 25 2024 Active doxycycline monohydrate (MONODOX) 100 mg capsuleIndicati ons:Pneumonia, Aspiration Take 1 capsule (100 mg total) by mouth 2 (two) times a day for 13 doses 13 capsule 02/20/20 25 2024 Active polyethylene glycol (MIRALAX) 17 gram/dose bulk powderIndicatio ns:constipation Take 17 g by mouth daily 510 g 02/20/20 25 2024 Active senna-docusate (PERICOLACE) 8.6-50 mg Take 1 tablet by mouth 2 (two) times a day 60 tablet 02/20/20 25 2024 Active naloxone (NARCAN) 4 mg/actuation spray,non-aeros ol Administer 1 spray into affected nostril(s) as needed for opioid reversal or respiratory depression Call 911. Administer a single spray in one nostril. Repeat every 3 minutes as needed if no or minimal response. 1 each 1 02/20/20 25 Active atorvastatin (LIPITOR) 80 mg tablet 09/16/192024 Discontinued(S top Taking at Discharge) PreviDent 5000 Plus 1.1 % cream 05/18/20 21 2024 Discontinued furosemide (LASIX) 40 mg tablet Take 1 tablet (40 mg total) by mouth daily 2024 Discontinued(S top Taking at Discharge) clobetasoL (TEMOVATE) 0.05 % ointment Apply topically 2 (two) times a day 2024 Discontinued cevimeline (EVOXAC) 30 mg capsule TAKE 1 CAPSULE(30 MG) BY MOUTH THREE TIMES DAILY 270 capsule 12/24/19 25 2024 Discontinued(S top Taking at Discharge) mirtazapine (REMERON) 30 mg tabletIndicatio ns:Primary insomnia Take 1 tablet (30 mg total) by mouth nightly 30 tablet 01/13/20 25 2024 Discontinued(A lternate therapy) eszopiclone (LUNESTA) 3 mg tabletIndicatio ns:Insomnia Take 1 tablet (3 mg total) by mouth nightly Take immediately before bedtime 2024 Discontinued(R eorder) eszopiclone (LUNESTA) 3 mg tabletIndicatio ns:Insomnia Take 1 tablet (3 mg total) by mouth nightly Take immediately before bedtime 30 tablet 3 02/18/20 25 2024 Discontinued naloxone (NARCAN) 0.4 mg/mL injection Infuse 1 mL (0.4 mg total) IV every 10 (ten) minutes as needed for respiratory depression or opioid reversal 1 mL 1 02/20/20 25 2024 Discontinued(S top Taking at Discharge) Active Problems Problem Noted Date Diagnosed Date Loculated pleural effusion 02/11/2025 Hypothyroidism 02/11/2025 Hypertension 02/11/2025 Obesity (BMI 30-39.9) 02/11/2025 Polyarthralgia 11/25/2024 Assessment & Plan (11/25/2024 11:53 AM CDT): No evidence for an inflammatory arthritis on US, XR, or serologies so will defer restarting HCQ at this time. Likely multifactorial with chronic pain from fibromyalgia and degenerative arthritis. She is currently on suboxone through pain management. [place] some relief with meloxicam so will resume [...] needed. Assessment & Plan (09/01/2024 12:03 PM RADIO CONTROL CRANE OPERATOR): 44-year-old female with PMHx of HTN, [...] dosing due to hx GERD. Will contact library clerk talking books for records. Follow up in 2 weeks. Sooner if needed. Seen with Dr. Amador. TONY (obstructive sleep apnea) 10/05/2020 Assessment & Plan (01/12/2025 2:03 PM CDT): The patient is intolerant of higher CPAP pressures, she will continue CPAP at 8 cm water pressure. She is aware that her AHI is elevated. DME adapt Assessment & Plan (07/01/2024 10:25 AM RADIO CONTROL CRANE OPERATOR): Patient continue with CPAP at 8 cm water pressure while sleeping. She was intolerable of higher pressures in the past. DME is adapt. Assessment & Plan (06/28/2023 11:59 AM RADIO CONTROL CRANE OPERATOR): Due to continued symptoms, the patient will continue CPAP at 8 cm water pressure. The patient has an elevated AHI, however she is intolerant of higher pressure. Denied need for supplies. DME adapt Assessment & Plan (06/27/2022 12:02 PM RADIO CONTROL CRANE OPERATOR): Patient continue to wear CPAP at 8 cm water pressure while sleeping. Her DME is adapt. The patient did not tolerate an increase in her pressures in the past. Assessment & Plan (06/30/2021 11:05 AM RADIO CONTROL CRANE OPERATOR): Patient continue to wear CPAP at [...] her mouth coming open while sleeping. The [employer] company is [employer]. The patient is benefitting from CPAP therapy. [...] person. Assessment & Plan (07/01/2024 10:25 AM RADIO CONTROL CRANE OPERATOR): The patient continues with Lunesta 3 mg on most nights. Assessment & Plan (06/28/2023 11:58 AM RADIO CONTROL CRANE OPERATOR): Due to continued symptoms, the patient will continue Lunesta 3 mg nightly. I have refilled the medication and will refill for 1 year Patient is aware that she should wear her CPAP machine if taking the medication. Assessment & Plan (06/27/2022 12:02 PM RADIO CONTROL CRANE OPERATOR): The patient will continue with Lunesta 3 mg p.o. at bedtime to treat insomnia. Assessment & Plan (06/30/2021 11:04 AM RADIO CONTROL CRANE OPERATOR): The patient will continue with Lunesta [...] Encounters Date Type Department Care Team Description 02/10/2025 11:46 PM CDT - 02/19/2025 12:30 PM CDT Hospital Encounter [address] [address] Piter Steele MD Chapagain, Akhil, MD Opoku, Michael, MD Loculated pleural effusion [J90] (Primary Dx); TONY (obstructive sleep apnea) [G47.33]; Hypothyroidism, unspecified type [E03.9]; Hypertension, unspecified type [I10]; Obesity (BMI 30-39.9) [E66.9] Discharge Disposition: Discharge to home or self care 01/12/2025 1:30 PM CDT Office Visit [facility] [address] [phone] Kelly Jeronimo NP TONY (obstructive sleep apnea) (Primary Dx); Primary insomnia from Last 3 Months Surgical History Surgery Date Site/Laterality Comments SECTION 06/26/2008 GASTRIC BYPASS 06/15/2009 - 07/15/2009 CHOLECYSTECTOMY 09/13/2009 - 10/13/2009 ABDOMINAL HERNIA REPAIR 07/16/2011 - 07/15/2012 FOOT NEUROMA SURGERY 07/16/2017 - 07/15/[address] CHEST TUBE INSERTION LEFT 02/12/2025 N/A Social History Tobacco Use Types Packs/Day Years Used Date Smoking Tobacco: Never Smokeless Tobacco: Never Tobacco Cessation:Counseling Given: Not Answered [facility] Utilities Answer Date Recorded In the past 12 months has [employer], gas, oil, or water [employer] threatened to shut off services in your home? No 02/11/2025 Social Connection and Isolation Panel Answer Date Recorded In a typical week, how many times do you talk on the phone with family, friends, or neighbors? More than three times a week 02/11/2025 How often do you get togethe r with friends or relatives? More than three times a week 02/11/2025 How often do you attend [facility] or scientology services? Never 02/11/2025 Do you belong to any clubs o r organizations such as confucianist groups, unions, fraternal or athletic groups, or school groups? No 02/11/2025 How often do you attend meet ings of the clubs or organizations you belong to? Never 02/11/2025 Are you , , di vorced, , never , or living with a partner? 02/11/2025 AUDIT-C Answer Date Recorded Q1: How often do you have a drink containing alc ohol? Never 04/07/2021 Average Number of Drinks Not on file 021 Q3: How often do you have si x or more drinks on one occasion? Never 04/07/2021 Overall Financial Resource Strain (CARDIA) Answe r Date Recorded How hard is it for you to pa y for the very basics like food, housing, medical care, and heating? Not very hard 02/11/2025 Hunger Vital Sign Answer Date Recorded Within the past 12 months, y ou worried that your food would run out before you got the money to buy more. Never true 02/12/20 25 Within the past 12 months, t he food you bought just didn't last and you didn't have money to get more. Never true 02/11/2025 PRAPARE - Transportation Answer Date Re corded In the past 12 months, has l ack of transportation kept you from medical appointments or from getting medications? No 01/15 In the past 12 months, has l ack of transportation kept you from meetings, work, or from getting things needed for daily living? No 02/11/2025 Housing Stability Vital Sign Answer Tyler e Recorded In the last 12 months, was t here a time when you were not able to pay the mortgage or rent on time? No 02/11/2025 In the past 12 months, how m any times have you moved where you were living? 0 02/11/2025 At any time in the past 12 m [facility], were you homeless or living in a custodial (including now)? No 02/11/2025 Personal Safety Answer Date Recorded Have you ever been in or are you currently in a harmful physical or emotional relationship or is someone making you feel afraid or unsafe? Denies 02/10/2025 Comments Unknown Sex and Gender Information Value Date Recorded Sex Assigned at Not on file Legal Sex Female 9:00 AM RADIO CONTROL CRANE OPERATOR Gender Identity Female 09/06/2024 3:20 PM RADIO CONTROL CRANE OPERATOR Sexual Orientation Not on file Obstetrics History Last Filed Vital Signs Vital Sign Reading Time Taken Comments Blood Pressure 138/84 02/19/2025 11:37 AM CDT Pulse 82 02/19/2025 11:37 AM CDT Temperature 36.4 C (97.5 F) 02/19/2025 11:37 AM CDT Respiratory Rate 18 02/19/2025 11:3 7 AM CDT Oxygen Saturation 95% 02/19/2025 11: 37 AM CDT Inhaled Oxygen Concentration - - Weight 124.7 kg (274 lb 14.6 oz) 02/18/2025 4:46 AM CDT Height 177.8 cm (5' 10) 02/18/2025 4:46 AM CDT Body Mass Index 39.45 02/18/2025 4:46 AM CDT Plan of Treatment Health Maintenance Due Date Last Done Comments Breast Cancer Screening-Mammogram 1980 Cervical Cancer Screening 1980 Depression Screening 1980 Hepatitis C Screening 1980 Hepatitis B Screening 1998 Regular Well Visit/Exam 18-64 1998 Covid-19 Vaccine ( season) 2024 10/21/2020, 09/28/2020 Influenza Vaccine (#1) 2025 , 04/18/2019, 06/05/2018, Additional history exists DTaP/Tdap/Td Vaccine (3 - Td or Tdap) 03/04/2028 03/04/2018, 05/28/2012, 04/21/2002 HPV Vaccines Completed 01/21/2007, 03/0 08/2006, 07/11/2006 Varicella Vaccines Completed 07/27/2009, 05/28/2009 Pneumococcal vaccine <65 Aged Out No longer eligible based on patient's age to complete this topic Procedures Procedure Name Priority Date/Time Associated Diagnosis Comments EGFR Routine 02/19/2025 2:29 AM CDT DIFFERENTIAL AUTO Routine 02/19/2025 2:2 9 AM CDT CBC WITH AUTO DIFFERENTIAL Routine 02/19/2025 2:29 AM CDT BASIC METABOLIC PANEL Routine 02/19/2025 2:29 AM CDT XR CHEST 1 VIEW IP Routine 02/18/2025 5:48 AM CDT EGFR Routine 02/18/2025 3:27 AM CDT DIFFERENTIAL AUTO Routine 02/18/2025 3:2 7 AM CDT CBC WITH AUTO DIFFERENTIAL Routine 02/18/2025 3:27 AM CDT BASIC METABOLIC PANEL Routine 02/18/2025 3:27 AM CDT XR CHEST 1 VIEW IP Routine 02/17/2025 6:06 AM CDT EGFR Routine 02/17/2025 3:35 AM CDT DIFFERENTIAL AUTO Routine 02/17/2025 3:3 5 AM CDT CBC WITH AUTO DIFFERENTIAL Routine 02/17/2025 3:35 AM CDT BASIC METABOLIC PANEL Routine 02/17/2025 3:35 AM CDT XR HUMERUS RIGHT 2 OR MORE VIEWS ED 02/16/2025 5:26 PM CDT XR CHEST 1 VIEW ED 02/16/2025 3:47 PM CDT XR CHEST 1 VIEW IP Routine 02/16/2025 5:50 AM CDT EGFR Routine 02/16/2025 2:53 AM CDT DIFFERENTIAL AUTO Routine 02/16/2025 2:5 3 AM CDT CBC WITH AUTO DIFFERENTIAL Routine 02/16/2025 2:53 AM CDT BASIC METABOLIC PANEL Routine 02/16/2025 2:53 AM CDT MRSA ONLY (STAPHYLOCOCCUS AUREUS) PCR Routine 02/15/2025 5:43 PM CDT XR CHEST 1 VIEW IP Routine 02/15/2025 5:48 AM CDT EGFR Routine 02/15/2025 3:08 AM CDT DIFFERENTIAL AUTO Routine 02/15/2025 3:0 8 AM CDT CBC WITH AUTO DIFFERENTIAL Routine 02/15/2025 3:08 AM CDT BASIC METABOLIC PANEL Routine 02/15/2025 3:[address] CHEST WO CONTRAST Timed 02/14/2025 3:39 PM CDT VANCOMYCIN LEVEL TROUGH Timed 02/15/20 12:56 PM CDT XR CHEST 1 VIEW IP Routine 02/14/2025 6:03 AM CDT EGFR Routine 02/14/2025 3:06 AM CDT DIFFERENTIAL AUTO Routine 02/14/2025 3:0 6 AM CDT COMPREHENSIVE METABOLIC PANEL Routine 02/14/2025 3:06 AM CDT CBC WITH AUTO DIFFERENTIAL Routine 02/14/2025 3:06 AM CDT DIFFERENTIAL AUTO Routine 02/13/2025 7:4 6 AM CDT CBC WITH AUTO DIFFERENTIAL Routine 02/13/2025 7:46 AM CDT COMPREHENSIVE METABOLIC PANEL Timed 02/13/2025 6:17 AM CDT EGFR Timed 02/13/2025 6:17 AM CDT VANCOMYCIN LEVEL TROUGH Timed 02/14/20 6:17 AM CDT XR CHEST 1 VIEW IP Routine 02/13/2025 6:[address] CHEST TUBE INSERTION RIGHT IP Routine 02/12/2025 2:33 PM CDT CELL DIFFERENTIAL, BODY FLUID Routine 02/12/2025 1:55 PM CDT PROTEIN, BODY FLUID Routine 02/12/2025 1 :55 PM CDT TRIGLYCERIDES, BODY FLUID Routine 02/12/2025 1:55 PM CDT PH, PLEURAL FLUID STAT 02/12/2025 1:5 5 PM CDT LACTATE DEHYDROGENASE, BODY FLUID Routine 02/12/2025 1:55 PM CDT GLUCOSE, BODY FLUID Routine 02/12/2025 1 :55 PM CDT CELL COUNT W/REFLEX DIFFERENTIAL, BODY FLUID Routine 02/12/2025 1:55 PM CDT MYCOLOGY (FUNGAL) CULTURE Routine 02/12/2025 1:55 PM CDT AEROBIC AND ANAEROBIC CULTURE AND GRAM STAIN Routine 02/12/2025 1:55 PM CDT MYCOBACTERIOLOGY AFB CULTURE AND ACID-FAST STAIN Routine 02/12/2025 1:55 PM CDT COMPREHENSIVE METABOLIC PANEL Timed 02/12/2025 6:36 AM CDT EGFR Timed 02/12/2025 6:36 AM CDT DIFFERENTIAL AUTO Routine 02/12/2025 6:3 6 AM CDT APTT Routine 02/12/2025 6:36 AM CDT CBC WITH AUTO DIFFERENTIAL Routine 02/12/2025 6:36 AM CDT PROTIME-INR Routine 02/12/2025 6:36 AM CDT VANCOMYCIN LEVEL TROUGH Timed 02/13/20 25 6:36 AM CDT HIV 1/2 ANTIBODY PLUS P24 ANTIGEN Routine 02/11/2025 9:51 PM CDT BLOOD CULTURE STAT 02/11/2025 7:08 PM CDT BLOOD CULTURE STAT 02/11/2025 7:03 PM CDT HEMOGLOBIN A1C Routine 02/11/2025 3:40 PM CDT ERYTHROCYTE SEDIMENTATION RATE Routine 02/11/2025 3:40 PM CDT PROTIME-INR STAT 02/11/2025 3:40 PM CDT CBC WITHOUT DIFFERENTIAL Routine 02/11/2025 3:40 PM CDT CYTOLOGY Routine 02/11/2025 2:[address] CHEST W CONTRAST ED Urgent/IP Urgent 02/11/2025 10:33 AM CDT BLOOD CULTURE STAT 02/11/2025 2:32 AM CDT BASIC METABOLIC PANEL Routine 02/11/2025 2:28 AM CDT EGFR Routine 02/11/2025 2:28 AM CDT HCG, BLOOD, QUANTITATIVE Routine 02/11/2025 2:28 AM CDT BLOOD CULTURE STAT 02/11/2025 2:28 AM CDT from Last 3 Months Results * eGFR (02/19/2025 2:29 AM CDT) [facility] eGFR >90 >=60 mL/min/1. 73 m2 Comment: Interpretive Data Reference Interval Normal >/= 90 mL/min/1.73m2 Mildly decreased* 60 - 89 mL/min/1.73m2 Mildly to moderately decreased 45 - 59 mL/min/1.73m2 Moderately to severely decreased 30 - 44 mL/min/1.73m2 Severely decreased 15 - 29 mL/min/1.73m2 Kidney Failure < 15 mL/min/1.73m2 *Relative to young adult level Estimated glomerular filtration rate is determined by the 2020 CKD-EPI equation recommended by the National Kidney Foundation (A Unifying Approach to GFR Estimation: Recommendations of the NKF-ASK Task Force on Reassessing the Inclusion of Race in Diagnosing Kidney Disease, JASN 2020). The CKD-EPI equation should not be used for patients with unstable renal function and has not been validated in children and those over 70. Current interpretive data was last reviewed 2021. Blood 02/19/2025 2:29 AM CDT 02/19/2025 3:27 AM CDT us Quincy Goyal MD LAB BLOOD ORDERABLES Final Resu lt [facility] [address] [facility] Department [place] [address] * (ABNORMAL) Differential, auto (02/19/2025 2:29 AM CDT) [facility] Neutrophil abs 3.16 1.50 - 6.50 K/cumm Imm gran abs 0.28(H) 0.00 - 0.10 K/cumm [facility] Lymphocyte abs 2.70 0.80 - 3.30 K/cumm [facility] Monocyte abs 0.76 0.20 - 0.80 K/cumm [facility] Eosinophil abs 0.16 0.00 - 0.50 K/cumm [facility] Basophil abs 0.06 0.00 - 0.10 K/cumm [facility] Neutrophil pct 44.5 % [facility] Comment: Interpretive Data Percent cell count reference ranges are not reported, since discordance with absolute values may lead to misinterpretation of CBC data. Current Interpretive Data was last revised on 2017. Imm gran pct 3.9 % [facility] Comment: Interpretive Data Percent cell count reference ranges are not reported, since discordance with absolute values may lead to misinterpretation of CBC data. Current Interpretive Data was last revised on 2017. Lymphocyte pct 37.9 % [facility] Comment: Interpretive Data Percent cell count reference ranges are not reported, since discordance with absolute values may lead to misinterpretation of CBC data. Current Interpretive Data was last revised on 2017. Monocyte pct 10.7 % [facility] Comment: Interpretive Data Percent cell count reference ranges are not reported, since discordance with absolute values may lead to misinterpretation of CBC data. Current Interpretive Data was last revised on 2017. Eosinophil pct 2.2 % [facility] Comment: Interpretive Data Percent cell count reference ranges are not reported, since discordance with absolute values may lead to misinterpretation of CBC data. Current Interpretive Data was last revised on 2017. Basophil pct 0.8 % [facility] Comment: Interpretive Data Percent cell count reference ranges are not reported, since discordance with absolute values may lead to misinterpretation of CBC data. Current Interpretive Data was last revised on 2017. Blood 02/19/2025 2:29 AM CDT 02/19/2025 3:28 AM CDT us Piter Steele MD LAB BLOOD ORDERABLES Final Result [facility] [address] [facility] Department [place] [address] * (ABNORMAL) CBC with auto differential (02/19/2025 2:29 AM CDT) WBC 7.12 3.80 - 9.90 K/cumm Hgb 9.9(L) 11.9 - 15.5 g/dL [facility] Hct 31.4(L) 35.6 - 45.5 % [facility] Plt 561(H) 150 - 400 K/cumm [facility] MPV 8.7(L) 9.1 - 12.3 fL [facility] RBC 3.20(L) 3.90 - 5.20 M/cumm [facility] MCV 98.1(H) 81.3 - 96.4 fL [facility] MCH 30.9 27.1 - 33.3 pg [facility] MCHC 31.5(L) 32.3 - 35.7 g/dL [facility] RDW CV 12.6 11.1 - 14.9 % [facility] RDW SD 45.0 35.7 - 48.1 fL [facility] NRBC abs 0.00 0.00 - 0.01 K/cumm [facility] Blood 02/19/2025 2:29 AM CDT 02/19/2025 3:28 AM CDT Piter Steele MD LAB BLOOD ORDERABLES Final Result [facility] [address] [facility] Department [place] [address] * Basic metabolic panel (02/19/2025 2:29 AM CDT) Sodium 144 135 - 145 mmol/L Potassium, pl 4.0 3.3 - 4.9 mmol/L [facility] Chloride 109 97 - 110 mmol/L [facility] CO2 28 22 - 32 mmol/L [facility] Anion gap 7 2 - 15 mmol/L [facility] BUN 6 6 - 25 mg/dL [facility] Creatinine 0.66 0.60 - 1.10 mg/dL [facility] Glucose 90 70 - 199 mg/dL [facility] Comment: Interpretive Data Fasting glucose >/= 126 mg/dl is diagnostic for diabetes. Fasting is defined as no caloric intake for at least 8 hours. Fasting glucose between 100 mg/dl to 125 mg/dl is diagnostic of prediabetes. In a patient with classic symptoms of hyperglycemia or hyperglycemic crisis, a random glucose >/= 200 mg/dl is diagnostic for diabetes. In the absence of unequivocal hyperglycemia, results should be confirmed by repeat testing. The classification and Diagnosis of Diabetes Diabetes Care 202; 46: S19-S40. Current interpretive data was last revised 2022. Calcium 8.5 8.5 - 10.3 mg/dL [facility] Blood 02/19/2025 2:29 AM CDT 02/19/2025 3:27 AM CDT us Quincy Goyal MD LAB BLOOD ORDERABLES Final Resu lt [facility] [address] [facility] Department [place] [address] * XR Chest 1 View (02/18/2025 5:48 AM CDT) Anatomical Region Laterality Modality Body, Chest N/A Computed Radiogr aphy 02/18/2025 8:35 AM CDT Narrative 02/18/2025 8:38 AM CDT EXAM DESCRIPTION: XR CHEST 1 VIEW REASON FOR STUDY: Follow up of right chest tube, pleural effusion Follow up of right chest tube, pleural effusion Transfer from [facility] 02/10 with right-sided chest pain. 02/11 Ct chest scan showed Large right pleural effusion with possible loculations. There is some air and debris within the collection suggesting this may be an empyema. Complete atelectasis of the right lower lobe and right middle lobe. Partial atelectasis of the right upper lobe. 02/12 ct guided right side chest tube placed; chest tube removed 02/16/25. daily Patient is being treated for pleural space infection. Daily. TECHNIQUE: AP portable upright radiographic view(s) of the chest. COMPARISON: 02/17/2025 and 02/16/2025. FINDINGS: LUNGS: There is persistent opacity in the right base, similar to the prior examination likely a combination of residual pleural fluid and either atelectasis or pneumonia. The left lung is clear. No pneumothorax. HEART/MEDIASTINUM: Cardiac silhouette is borderline enlarged likely magnified by technique. Pulmonary vascularity is similar. Trachea midline LINES/TUBES: None. BONES: No acute osseous abnormality. IMPRESSION: Stable opacity within the right lung base likely a combination of residual pleural fluid and adjacent atelectasis or pneumonia. THIS IS AN ELECTRONICALLY VERIFIED FINAL REPORT 02/18/2025 8:38 AM - Electronically signed by Delmi Fuentes M.D. TW T: Report ID: [id number] Reading Location: [id number] Procedure Note Demli Fuentes MD - 02/18/2025 EXAM DESCRIPTION: XR CHEST 1 VIEW REASON FOR STUDY: Follow up of right chest tube, pleural effusion Follow up of right chest tube, [facility]. 02/11 Ct chest scanshowed Large right pleural effusion with possible loculations. There is some air and debris within the collection suggesting this may serrato empyema. Complete atelectasis of the right lower lobe and right middle lobe. Partial atelectasis of the right upper lobe. 02/12ct guided right side chest tube placed; chest tube removed 02/16/25. daily Patient is being treated for pleural space infection. Daily. TECHNIQUE: AP portable upright radiographic view(s) of the chest. COMPARISON: 02/17/2025 and 02/16/2025. FINDINGS: LUNGS: There is persistent opacity in the right base, similarto the prior examination likely a combination of residual pleural fluid and either atelectasis or pneumonia. The left lung is clear. Nopneumothorax. HEART/MEDIASTINUM: Cardiac silhouette is borderline enlarged likelymagnified by technique. Pulmonary vascularity is similar. Trachea midline LINES/TUBES: None. BONES: No acute osseous abnormality. IMPRESSION: Stable opacity within the right lung base likely a combinationof residual pleural fluid and adjacent atelectasis or pneumonia. THIS IS AN ELECTRONICALLY VERIFIED FINAL REPORT 02/18/2025 8:38 AM - Electronically signed by Delmi Fuentes M.D. TW T: Report ID: [id number] Reading Location: [id number] Ronny Boykin MD IMG XR PROCEDURES Final Resu lt * eGFR (02/18/2025 3:27 AM CDT) eGFR >90 >=60 mL/min/1. 73 m2 Comment: Interpretive Data Reference Interval Normal >/= 90 mL/min/1.73m2 Mildly decreased* 60 - 89 mL/min/1.73m2 Mildly to moderately decreased 45 - 59 mL/min/1.73m2 Moderately to severely decreased 30 - 44 mL/min/1.73m2 Severely decreased 15 - 29 mL/min/1.73m2 Kidney Failure < 15 mL/min/1.73m2 *Relative to young adult level Estimated glomerular filtration rate is determined by the 2020 CKD-EPI equation recommended by the National Kid[employer] (A Unifying Approach to GFR Estimation: Recommendations of the NKF-ASK Task Force on Reassessing the Inclusion of Race in Diagnosing Kidney Disease, JASN 2020). The CKD-EPI equation should not be used for patients with unstable renal function and has not been validated in children and those over 70. Current interpretive data was last reviewed 2021. Blood 02/18/2025 3:27 AM CDT 02/18/2025 4:09 AM CDT Quincy Goyal MD LAB BLOOD ORDERABLES Final Resu lt [facility] [address] [facility] Department [place] [address] * (ABNORMAL) Differential, auto (02/18/2025 3:27 AM CDT) Neutrophil abs 4.98 1.50 - 6.50 K/cumm Imm gran abs 0.43(H) 0.00 - 0.10 K/cumm [facility] Lymphocyte abs 2.63 0.80 - 3.30 K/cumm [facility] Monocyte abs 0.81(H) 0.20 - 0.80 K/cumm [facility] Eosinophil abs 0.14 0.00 - 0.50 K/cumm [facility] Basophil abs 0.05 0.00 - 0.10 K/cumm [facility] Neutrophil pct 55.0 % [facility] Comment: Interpretive Data Percent cell count reference ranges are not reported, since discordance with absolute values may lead to misinterpretation of CBC data. Current Interpretive Data was last revised on 2017. Imm gran pct 4.8 % [facility] Comment: Interpretive Data Percent cell count reference ranges are not reported, since discordance with absolute values may lead to misinterpretation of CBC data. Current Interpretive Data was last revised on 2017. Lymphocyte pct 29.1 % [facility] Comment: Interpretive Data Percent cell count reference ranges are not reported, since discordance with absolute values may lead to misinterpretation of CBC data. Current Interpretive Data was last revised on 2017. Monocyte pct 9.0 % [facility] Comment: Interpretive Data Percent cell count reference ranges are not reported, since discordance with absolute values may lead to misinterpretation of CBC data. Current Interpretive Data was last revised on 2017. Eosinophil pct 1.5 % [facility] Comment: Interpretive Data Percent cell count reference ranges are not reported, since discordance with absolute values may lead to misinterpretation of CBC data. Current Interpretive Data was last revised on 2017. Basophil pct 0.6 % [facility] Comment: Interpretive Data Percent cell count reference ranges are not reported, since discordance with absolute values may lead to misinterpretation of CBC data. Current Interpretive Data was last revised on 2017. Blood 02/18/2025 3:27 AM CDT 02/18/2025 4:09 AM CDT Piter Steele MD LAB BLOOD ORDERABLES Final Result [facility] [address] [facility] Department [place] [address] * (ABNORMAL) CBC with auto differential (02/18/2025 3:27 AM CDT) WBC 9.04 3.80 - 9.90 K/cumm Hgb 10.0(L) 11.9 - 15.5 g/dL [facility] Hct 31.6(L) 35.6 - 45.5 % [facility] Plt 545(H) 150 - 400 K/cumm [facility] MPV 8.7(L) 9.1 - 12.3 fL [facility] RBC 3.24(L) 3.90 - 5.20 M/cumm [facility] MCV 97.5(H) 81.3 - 96.4 fL [facility] MCH 30.9 27.1 - 33.3 pg [facility] MCHC 31.6(L) 32.3 - 35.7 g/dL [facility] RDW CV 12.6 11.1 - 14.9 % [facility] RDW SD 44.7 35.7 - 48.1 fL [facility] NRBC abs 0.00 0.00 - 0.01 K/cumm [facility] Blood 02/18/2025 3:27 AM CDT 02/18/2025 4:09 AM CDT Piter Steele MD LAB BLOOD ORDERABLES Final Result [facility] [address] [facility] Department [place] [address] * (ABNORMAL) Basic metabolic panel (02/18/2025 3:27 AM CDT) Sodium 142 135 - 145 mmol/L Potassium, pl 3.9 3.3 - 4.9 mmol/L [facility] Chloride 108 97 - 110 mmol/L [facility] CO2 26 22 - 32 mmol/L [facility] Anion gap 8 2 - 15 mmol/L [facility] BUN 5(L) 6 - 25 mg/dL [facility] Creatinine 0.54(L) 0.60 - 1.10 mg/dL [facility] Glucose 84 70 - 199 mg/dL [facility] Comment: Interpretive Data Fasting glucose >/= 126 mg/dl is diagnostic for diabetes. Fasting is defined as no caloric intake for at least 8 hours. Fasting glucose between 100 mg/dl to 125 mg/dl is diagnostic of prediabetes. In a patient with classic symptoms of hyperglycemia or hyperglycemic crisis, a random glucose >/= 200 mg/dl is diagnostic for diabetes. In the absence of unequivocal hyperglycemia, results should be confirmed by repeat testing. The classification and Diagnosis of Diabetes Diabetes Care 2021; 46: S19-S40. Current interpretive data was last revised 2022. Calcium 8.4(L) 8.5 - 10.3 mg/dL [facility] Blood 02/18/2025 3:27 AM CDT 02/18/2025 4:09 AM CDT us Quincy Goyal MD LAB BLOOD ORDERABLES Final Resu lt [facility] [address] [facility] Department [place] [address] * XR Chest 1 View (02/17/2025 6:06 AM CDT) Anatomical Region Laterality Modality Body, Chest N/A Computed Radiogr aphy 02/17/2025 10:0 9 AM CDT Narrative 02/17/2025 10:12 AM CDT EXAM DESCRIPTION: XR CHEST 1 VIEW REASON FOR STUDY: Follow up of right chest tube, pleural effusion Follow up of right chest tube, pleural effusion Transfer [facility] 02/10 with right-sided chest pain. 02/11 Ct chest scan showed Large right pleural effusion with possible loculations. There is some air and debris within the collection suggesting this may be an empyema. Complete atelectasis of the right lower lobe and right middle lobe. Partial atelectasis of the right upper lobe. 02/12 ct guided right side chest tube placed; chest tube removed 02/16/25. daily Patient is being treated for pleural space infection. Daily. TECHNIQUE: 1 radiographic view(s) of the chest. COMPARISON: 02/16/[address] 02/14/2025. FINDINGS: LUNGS: Continued atelectasis of the right mid to lower lung with right hemidiaphragm elevation.. The left lung is clear.. Likely small right pleural effusion. No pneumothorax is seen. HEART/MEDIASTINUM: Unchanged cardiomediastinal contours and heart size. Atrial appendage occluder is redemonstrated. LINES/TUBES: None. BONES: No acute displaced fracture or aggressive bone lesion is seen grossly. Gaseous distention of the splenic flexure of the colon IMPRESSION: Similar atelectasis in the right mid to lower lung. Likely small right pleural effusion. THIS IS AN ELECTRONICALLY VERIFIED FINAL REPORT 02/17/2025 10:12 AM - Electronically signed by Robert SAHU T: Report ID: [id number] Reading Location: [id number] Procedure Note Robert Cano MD - 02/17/2025 EXAM DESCRIPTION: XR CHEST 1 VIEW REASON FOR STUDY: Follow up of right chest tube, pleural effusion Follow up of right chest tube, [facility]. 02/11 Ct chest scanshowed Large right pleural effusion with possible loculations. There issome air and debris within the collection suggesting this may be anempyema. Complete atelectasis of the right lower lobe and right middle lobe. Partial atelectasis of the right upper lobe. 02/12 ct guided right side chest tube placed; chest tube removed 02/16/25. daily Patient is beingtreated for pleural space infection. Daily. TECHNIQUE: 1 radiographic view(s) of the chest. COMPARISON: 02/16/[address] 02/14/2025. FINDINGS: LUNGS: Continued atelectasis of the right mid to lower lungwith right hemidiaphragm elevation.. The left lung is clear.. Likely smallright pleural effusion. No pneumothorax is seen. HEART/MEDIASTINUM: Unchanged cardiomediastinal contours and heart size. Atrial appendage occluder is redemonstrated. LINES/TUBES: None. BONES: No acute displaced fracture or aggressive bone lesion is seengrossly. Gaseous distention of the splenic flexure of the colon IMPRESSION: Similar atelectasis in the right mid to lower lung. Likelysmall right pleural effusion. THIS IS AN ELECTRONICALLY VERIFIED FINAL REPORT 02/17/2025 10:12 AM - Electronically signed by Robert Cano M.D. MZ T: Report ID: [id number] Reading Location: [id number] Ronny Boykin MD IMG XR PROCEDURES Final Resu lt * eGFR (02/17/2025 3:35 AM CDT) eGFR >90 >=60 mL/min/1. 73 m2 Comment: Interpretive Data Reference Interval Normal >/= 90 mL/min/1.73m2 Mildly decreased* 60 - 89 mL/min/1.73m2 Mildly to moderately decreased 45 - 59 mL/min/1.73m2 Moderately to severely decreased 30 - 44 mL/min/1.73m2 Severely decreased 15 - 29 mL/min/1.73m2 Kidney Failure < 15 mL/min/1.73m2 *Relative to young adult level Estimated glomerular filtration rate is determined by the 2020 CKD-EPI equation recommended by the National Kidney Foundation (A Unifying Approach to GFR Estimation: Recommendations of the NKF-ASK Task Force on Reassessing the Inclusion of Race in Diagnosing Kidney Disease, JASN 2020). The CKD-EPI equation should not be used for patients with unstable renal function and has not been validated in children and those over 70. Current interpretive data was last reviewed 2021. Blood 02/17/2025 3:35 AM CDT 02/17/2025 4:09 AM CDT us Quincy Goyal MD LAB BLOOD ORDERABLES Final Resu lt [facility] [address] [facility] Department [place] [address] * (ABNORMAL) Differential, auto (02/17/2025 3:35 AM CDT) Neutrophil abs 6.53(H) 1.50 - 6.50 K/cumm Imm gran abs 0.51(H) 0.00 - 0.10 K/cumm [facility] Lymphocyte abs 2.41 0.80 - 3.30 K/cumm [facility] Monocyte abs 0.87(H) 0.20 - 0.80 K/cumm [facility] Eosinophil abs 0.17 0.00 - 0.50 K/cumm [facility] Basophil abs 0.04 0.00 - 0.10 K/cumm [facility] Neutrophil pct 62.0 % [facility] Comment: Interpretive Data Percent cell count reference ranges are not reported, since discordance with absolute values may lead to misinterpretation of CBC data. Current Interpretive Data was last revised on 2017. Imm gran pct 4.8 % [facility] Comment: Interpretive Data Percent cell count reference ranges are not reported, since discordance with absolute values may lead to misinterpretation of CBC data. Current Interpretive Data was last revised on 2017. Lymphocyte pct 22.9 % [facility] Comment: Interpretive Data Percent cell count reference ranges are not reported, since discordance with absolute values may lead to misinterpretation of CBC data. Current Interpretive Data was last revised on 2017. Monocyte pct 8.3 % [facility] Comment: Interpretive Data Percent cell count reference ranges are not reported, since discordance with absolute values may lead to misinterpretation of CBC data. Current Interpretive Data was last revised on 2017. Eosinophil pct 1.6 % [facility] Comment: Interpretive Data Percent cell count reference ranges are not reported, since discordance with absolute values may lead to misinterpretation of CBC data. Current Interpretive Data was last revised on 2017. Basophil pct 0.4 % [facility] Comment: Interpretive Data Percent cell count reference ranges are not reported, since discordance with absolute values may lead to misinterpretation of CBC data. Current Interpretive Data was last revised on 2017. Blood 02/17/2025 3:35 AM CDT 02/17/2025 4:08 AM CDT us Piter Steele MD LAB BLOOD ORDERABLES Final Result [facility] [address] [facility] Department [place] [address] * (ABNORMAL) CBC with auto differential (02/17/2025 3:35 AM CDT) Pathologist [facility] [place] WBC 10.53(H) 3.80 - 9.90 K/cumm Hgb 10.4(L) 11.9 - 15.5 g/dL [facility] Hct 32.6(L) 35.6 - 45.5 % [facility] Plt 499(H) 150 - 400 K/cumm [facility] MPV 8.9(L) 9.1 - 12.3 fL [facility] RBC 3.33(L) 3.90 - 5.20 M/cumm [facility] MCV 97.9(H) 81.3 - 96.4 fL [facility] MCH 31.2 27.1 - 33.3 pg [facility] MCHC 31.9(L) 32.3 - 35.7 g/dL [facility] RDW CV 12.7 11.1 - 14.9 % [facility] RDW SD 45.1 35.7 - 48.1 fL [facility] NRBC abs 0.00 0.00 - 0.01 K/cumm [facility] Blood 02/17/2025 3:35 AM CDT 02/17/2025 4:08 AM CDT Piter Steele MD LAB BLOOD ORDERABLES Final Result [facility] [address] [facility] Department [place] [address] * (ABNORMAL) Basic metabolic panel (02/17/2025 3:35 AM CDT) Sodium 139 135 - 145 mmol/L Potassium, pl 3.9 3.3 - 4.9 mmol/L [facility] Chloride 106 97 - 110 mmol/L [facility] CO2 27 22 - 32 mmol/L [facility] Anion gap 6 2 - 15 mmol/L [facility] BUN 5(L) 6 - 25 mg/dL [facility] Creatinine 0.52(L) 0.60 - 1.10 mg/dL [facility] Glucose 89 70 - 199 mg/dL [facility] Comment: Interpretive Data Fasting glucose >/= 126 mg/dl is diagnostic for diabetes. Fasting is defined as no caloric intake for at least 8 hours. Fasting glucose between 100 mg/dl to 125 mg/dl is diagnostic of prediabetes. In a patient with classic symptoms of hyperglycemia or hyperglycemic crisis, a random glucose >/= 200 mg/dl is diagnostic for diabetes. In the absence of unequivocal hyperglycemia, results should be confirmed by repeat testing. The classification and Diagnosis of Diabetes Diabetes Care 2021; 46: S19-S40. Current interpretive data was last revised 2022. Calcium 8.4(L) 8.5 - 10.3 mg/dL [facility] Blood 02/17/2025 3:35 AM CDT 02/17/2025 4:09 AM CDT us Quincy Goyal MD LAB BLOOD ORDERABLES Final Resu lt [facility] [address] [facility] Department [place] [address] * XR Humerus Right 2 or More Views (02/16/2025 5:26 PM CDT) Anatomical Region Laterality Modality Upper Extremities, Upper Arm Right Com puted Radiography 02/16/2025 11:3 5 PM CDT Narrative 02/16/2025 11:46 PM CDT EXAM DESCRIPTION: XR HUMERUS RIGHT 2 OR MORE VIEWS REASON FOR STUDY: midline placement - not flushing Midline not able to flush or pull fluids TECHNIQUE: Frontal and lateral views of the right humerus . COMPARISON: None FINDINGS: BONES/JOINTS: No fracture, malalignment, or suspicious osseous lesion is identified. Joint spaces are preserved. SOFT TISSUES: Right peripheral line demonstrates no kinking or discontinuity IMPRESSION: Right peripheral line demonstrates no kinking or discontinuity. THIS IS AN ELECTRONICALLY VERIFIED FINAL REPORT 02/16/2025 11:46 PM - Electronically signed by Riley Ford M.D. AR T: Report ID: [id number] Reading Location: [place] [address] Procedure Note Riley Ford MD - 02/16/2025 EXAM DESCRIPTION: XR HUMERUS RIGHT 2 OR MORE VIEWS REASON FOR STUDY: midline placement - not flushing Midline not able to flush or pull fluids TECHNIQUE: Frontal and lateral views of the right humerus . COMPARISON: None FINDINGS: BONES/JOINTS: No fracture, malalignment, or suspicious osseous lesion is identified. Joint spaces are preserved. SOFT TISSUES: Right peripheral line demonstrates no kinking ordiscontinuity IMPRESSION: Right peripheral line demonstrates no kinking ordiscontinuity. THIS IS AN ELECTRONICALLY VERIFIED FINAL REPORT 02/16/2025 11:46 PM - Electronically signed by Riley Ford M.D. AR T: Report ID: [id number] Reading Location: [id number] [facility] XR PROCEDURES Final R esult * XR Chest 1 View (02/16/2025 3:47 PM CDT) Anatomical Region Laterality Modality Body, Chest N/A Computed Radiogr aphy 02/16/2025 11:3 4 PM CDT Narrative 02/16/2025 11:35 PM CDT EXAM DESCRIPTION: XR CHEST 1 VIEW REASON FOR STUDY: Chest tube clearance, CT removed F/u chest tube removed yesterday TECHNIQUE: Portable upright AP view of the chest. COMPARISON: Same day FINDINGS: LUNGS AND PLEURA: Patchy right lung base opacities. No visible pneumothorax. Left lung clear. Chest tube has been removed from the right HEART/MEDIASTINUM: Trachea midline. Cardiac silhouette normal in size. Mediastinal contours appear normal. BONES: Unremarkable. CHEST WALL: Unremarkable. UPPER ABDOMEN: Unremarkable. IMPRESSION: No pneumothorax or other complication identified following removal of right chest tube. THIS IS AN ELECTRONICALLY VERIFIED FINAL REPORT 02/16/2025 11:35 PM - Electronically signed by Riley Ford M.D. AR T: Report ID: [id number] Reading Location: [id number] Procedure Note Riley Ford MD - 02/16/2025 EXAM DESCRIPTION: XR CHEST 1 VIEW REASON FOR STUDY: Chest tube clearance, CT removed F/u chest tube removed yesterday TECHNIQUE: Portable upright AP view of the chest. COMPARISON: Same day FINDINGS: LUNGS AND PLEURA: Patchy right lung base opacities. No visible pneumothorax. Left lung clear. Chest tube has been removed from theright HEART/MEDIASTINUM: Trachea midline. Cardiac silhouette normal in size. Mediastinal contours appear normal. BONES: Unremarkable. CHEST WALL: Unremarkable. UPPER ABDOMEN: Unremarkable. IMPRESSION: No pneumothorax or other complication identified followingremoval of right chest tube. THIS IS AN ELECTRONICALLY VERIFIED FINAL REPORT 02/16/2025 11:35 PM - Electronically signed by Riley Ford M.D. AR T: Report ID: [id number] Reading Location: [id number] [facility] XR PROCEDURES Final R esult * XR Chest 1 View (02/16/2025 5:50 AM CDT) Anatomical Region Laterality Modality Body, Chest N/A Computed Radiogr aphy 02/16/2025 9:25 AM CDT Narrative 02/16/2025 9:26 AM CDT EXAM DESCRIPTION: XR CHEST 1 VIEW REASON FOR STUDY: Follow up of right chest tube, pleural effusion Follow up of right chest tube, pleural effusion Transfer from [facility] 02/10 with right-sided chest pain. 02/11 Ct chest scan showed Large right pleural effusion with possible loculations. There is some air and debris within the collection suggesting this may be an empyema. Complete atelectasis of the right lower lobe and right middle lobe. Partial atelectasis of the right upper lobe. 02/12 ct guided right side chest tube placed; daily Patient is being treated for pleural space infection. Daily. TECHNIQUE: Single-view COMPARISON: 02/15/2025 FINDINGS: Right-sided pigtail drain projects over the lower chest unchanged. Adjacent band like densities suggesting residual atelectasis and scalp lateral effusion unchanged. Left lung well expanded. Central vascularity normal caliber. No pneumothorax. IMPRESSION: No change right-sided chest tube and adjacent atelectasis and effusion. THIS IS AN ELECTRONICALLY VERIFIED FINAL REPORT 02/16/2025 9:26 AM - Electronically signed by Giacomo LOONEY T: Report ID: [id number] Reading Location: [id number] Procedure Note Giacomo Araiza MD - 02/16/2025 EXAM DESCRIPTION: XR CHEST 1 VIEW REASON FOR STUDY: Follow up of right chest tube, pleural effusion Follow up of right [facility] tube[facility]. 02/11 Ct chest scan showed Large right pleural effusion with possible loculations. There issome air and debris within the collection suggesting this may be anempyema. Complete atelectasis of the right lower lobe and right middle lobe. Partial atelectasis of the right upper lobe. 02/12 ct guided right side chest tube placed; daily Patient is being treated for pleuralspace infection. Daily. TECHNIQUE: Single-view COMPARISON: 02/15/2025 FINDINGS: Right-sided pigtail drain projects over the lower chest unchanged. Adjacent band like densities suggesting residual atelectasis and scalplateral effusion unchanged. Left lung well expanded. Central vascularity normal caliber. No pneumothorax. IMPRESSION: No change right-sided chest tube and adjacent atelectasis and effusion. THIS IS AN ELECTRONICALLY VERIFIED FINAL REPORT 02/16/2025 9:26 AM - Electronically signed by Giacomo Araiza M.D. RB T: Report ID: [id number] Reading Location: [place] [address] Ronny Boykin MD IMG XR PROCEDURES Final Resu lt * eGFR (02/16/2025 2:53 AM CDT) eGFR >90 >=60 mL/min/1. 73 m2 Comment: Interpretive Data Reference Interval Normal >/= 90 mL/min/1.73m2 Mildly decreased* 60 - 89 mL/min/1.73m2 Mildly to moderately decreased 45 - 59 mL/min/1.73m2 Moderately to severely decreased 30 - 44 mL/min/1.73m2 Severely decreased 15 - 29 mL/min/1.73m2 Kidney Failure < 15 mL/min/1.73m2 *Relative to young adult level Estimated glomerular filtration rate is determined by the 2020 CKD-EPI equation recommended by the National Kid[employer] (A Unifying Approach to GFR Estimation: Recommendations of the NKF-ASK Task Force on Reassessing the Inclusion of Race in Diagnosing Kidney Disease, JASN 2020). The CKD-EPI equation should not be used for patients with unstable renal function and has not been validated in children and those over 70. Current interpretive data was last reviewed 2021. Blood 02/16/2025 2:53 AM CDT 02/16/2025 3:07 AM CDT us Quincy Goyal MD LAB BLOOD ORDERABLES [facility] [address] [facility] Department of Laboratories [place], [place] [id number] * (ABNORMAL) Differential, auto (02/16/2025 2:53 AM CDT) Neutrophil abs 7.55(H) 1.50 - 6.50 K/cumm Imm gran abs 0.60(H) 0.00 - 0.10 K/cumm [facility] Lymphocyte abs 2.40 0.80 - 3.30 K/cumm [facility] Monocyte abs 1.20(H) 0.20 - 0.80 K/cumm [facility] Eosinophil abs 0.16 0.00 - 0.50 K/cumm [facility] Basophil abs 0.06 0.00 - 0.10 K/cumm [facility] Neutrophil pct 63.1 % [facility] Comment: Interpretive Data Percent cell count reference ranges are not reported, since discordance with absolute values may lead to misinterpretation of CBC data. Current Interpretive Data was last revised on 2017. Imm gran pct 5.0 % [facility] Comment: Interpretive Data Percent cell count reference ranges are not reported, since discordance with absolute values may lead to misinterpretation of CBC data. Current Interpretive Data was last revised on 2017. Lymphocyte pct 20.1 % [facility] Comment: Interpretive Data Percent cell count reference ranges are not reported, since discordance with absolute values may lead to misinterpretation of CBC data. Current Interpretive Data was last revised on 2017. Monocyte pct 10.0 % [facility] Comment: Interpretive Data Percent cell count reference ranges are not reported, since discordance with absolute values may lead to misinterpretation of CBC data. Current Interpretive Data was last revised on 2017. Eosinophil pct 1.3 % [facility] Comment: Interpretive Data Percent cell count reference ranges are not reported, since discordance with absolute values may lead to misinterpretation of CBC data. Current Interpretive Data was last revised on 2017. Basophil pct 0.5 % [facility] Comment: Interpretive Data Percent cell count reference ranges are not reported, since discordance with absolute values may lead to misinterpretation of CBC data. Current Interpretive Data was last revised on 2017. Blood 02/16/2025 2:53 AM CDT 02/16/2025 3:07 AM CDT Piter Steele MD LAB BLOOD ORDERABLES Final Result Performing Organization Address City/[facility] Co de Phone Number CAROLE [address] [place] [employer] [address] * (ABNORMAL) CBC with auto differential (02/16/2025 2:53 AM CDT) Pathologist [facility] [place] WBC 11.97(H) 3.80 - 9.90 K/cumm Hgb 10.6(L) 11.9 - 15.5 g/dL [facility] Hct 33.4(L) 35.6 - 45.5 % [facility] Plt 432(H) 150 - 400 K/cumm [facility] MPV 8.7(L) 9.1 - 12.3 fL [facility] RBC 3.42(L) 3.90 - 5.20 M/cumm [facility] MCV 97.7(H) 81.3 - 96.4 fL [facility] MCH 31.0 27.1 - 33.3 pg [facility] MCHC 31.7(L) 32.3 - 35.7 g/dL [facility] RDW CV 12.6 11.1 - 14.9 % [facility] RDW SD 45.6 35.7 - 48.1 fL [facility] NRBC abs 0.00 0.00 - 0.01 K/cumm [facility] Blood 02/16/2025 2:53 AM CDT 02/16/2025 3:07 AM CDT Piter Steele MD LAB BLOOD ORDERABLES Final Result Performing Organization Address City/[facility]/ZIP Co de Phone Number CAROLE [address] [place] [address] * (ABNORMAL) Basic metabolic panel (02/16/2025 2:53 AM CDT) Sodium 141 135 - 145 mmol/L Potassium, pl 3.8 3.3 - 4.9 mmol/L [facility] Chloride 107 97 - 110 mmol/L [facility] CO2 28 22 - 32 mmol/L [facility] Anion gap 6 2 - 15 mmol/L [facility] BUN 6 6 - 25 mg/dL [facility] Creatinine 0.65 0.60 - 1.10 mg/dL [facility] Glucose 91 70 - 199 mg/dL [facility] Comment: Interpretive Data Fasting glucose >/= 126 mg/dl is diagnostic for diabetes. Fasting is defined as no caloric intake for at least 8 hours. Fasting glucose between 100 mg/dl to 125 mg/dl is diagnostic of prediabetes. In a patient with classic symptoms of hyperglycemia or hyperglycemic crisis, a random glucose >/= 200 mg/dl is diagnostic for diabetes. In the absence of unequivocal hyperglycemia, results should be confirmed by repeat testing. The classification and Diagnosis of Diabetes Diabetes Care 202; 46: S19-S40. Current interpretive data was last revised 2022. Calcium 8.2(L) 8.5 - 10.3 mg/dL [facility] Blood 02/16/2025 2:53 AM CDT 02/16/2025 3:07 AM CDT Quincy Goyal MD LAB BLOOD ORDERABLES Final Resu lt [facility] [address] [facility] Department [place] [address] * MRSA Only (Staphylococcus aureus) PCR Nasal (02/15/2025 5:43 PM CDT) [facility] PCR Scrn, Methicillin resistant Staphylococcus aureus (MRSA) Not Detected Not Detected Comment: Interpretive Data Testing performed using Nucleic Acid Amplification with the [employer] Xpert MRSA NxG Assay. This assay detects target DNA from mecA, mecC and the SCCmec insertion site of Staphylococcus aureus using Real-Time PCR and has been cleared by the FDA. Performance characteristics have been verified by the [facility]. Current Interpretive Data was last revised on 2023 Nasal 02/15/2025 5:43 PM CDT 02/15/2025 5:49 PM CDT us Piter Steele MD LAB MICROBIOLOGY - G ENERAL ORDERABLES Final Result [facility] [address] [facility] Department [place] [address] * XR Chest 1 View (02/15/2025 5:48 AM CDT) Anatomical Region Laterality Modality Body, Chest N/A Computed Radiogr aphy 02/15/2025 8:21 AM CDT Narrative 02/15/2025 8:23 AM CDT EXAM DESCRIPTION: XR CHEST 1 VIEW REASON FOR STUDY: Follow up of right chest tube, pleural effusion Follow up of right chest tube, pleural effusion Transfer from [facility] 02/10 with right-sided chest pain. 02/11 Ct chest scan showed Large right pleural effusion with possible loculations. There is some air and debris within the collection suggesting this may be an empyema. Complete atelectasis of the right lower lobe and right middle lobe. Partial atelectasis of the right upper lobe. 02/12 ct guided right side chest tube placed; daily Patient is being treated for pleural space infection TECHNIQUE: Single radiographic view(s) of the chest. COMPARISON: Radiograph dated February 14, 2025 FINDINGS: LUNGS: Moderate right basilar opacity similar to prior examination represent combination atelectasis/consolidation and/or effusion. Pulmonary vascularity is within normal limits. No appreciable pneumothorax. Mild elevation of left hemidiaphragm. HEART/MEDIASTINUM: Cardiac silhouette normal in size. Mediastinal and hilar contours appear normal. LINES/TUBES: Right-sided pleural catheter in place. BONES: No acute osseous abnormality. IMPRESSION: 1. Moderate right basilar opacity similar to prior examination represent combination atelectasis/consolidation and/or effusion. THIS IS AN ELECTRONICALLY VERIFIED FINAL REPORT 02/15/2025 8:23 AM - Electronically signed by Nico RICHARDS T: Report ID: [id number] Reading Location: [id number] Procedure Note Nico Alvarado MD - 02/15/2025 EXAM DESCRIPTION: XR CHEST 1 VIEW REASON FOR STUDY: Follow up of right chest tube, pleural effusion Follow up of right [facility] tube, [facility]. 02/11 Ct chest scan showedLarge right pleural effusion with possible loculations. There is some airand debris within the collection suggesting this may be an empyema. Complete atelectasis of the right lower lobe and right middle lobe. Partial atelectasis of the right upper lobe. 02/12 ct guided right side chesttube placed; daily Patient is being treated for pleural space infection TECHNIQUE: Single radiographic view(s) of the chest. COMPARISON: Radiograph dated February 14, 2025 FINDINGS: LUNGS: Moderate right basilar opacity similar to priorexamination represent combination atelectasis/consolidation and/or effusion.Pulmonary vascularity is within normal limits. No appreciable pneumothorax. Mild elevation of left hemidiaphragm. HEART/MEDIASTINUM: Cardiac silhouette normal in size. Mediastinal andhilar contours appear normal. LINES/TUBES: Right-sided pleural catheter in place. BONES: No acute osseous abnormality. IMPRESSION: 1. Moderate right basilar opacity similar to prior examination represent combination atelectasis/consolidation and/or effusion. THIS IS AN ELECTRONICALLY VERIFIED FINAL REPORT 02/15/2025 8:23 AM - Electronically signed by Nico RICHARDS T: Report ID: [id number] Reading Location: [id number] us Ronny Boykin MD IMG XR PROCEDURES Final Resu lt * eGFR (02/15/2025 3:08 AM CDT) eGFR >90 >=60 mL/min/1. 73 m2 Comment: Interpretive Data Reference Interval Normal >/= 90 mL/min/1.73m2 Mildly decreased* 60 - 89 mL/min/1.73m2 Mildly to moderately decreased 45 - 59 mL/min/1.73m2 Moderately to severely decreased 30 - 44 mL/min/1.73m2 Severely decreased 15 - 29 mL/min/1.73m2 Kidney Failure < 15 mL/min/1.73m2 *Relative to young adult level Estimated glomerular filtration rate is determined by the 2020 CKD-EPI equation recommended by the National Kidney Foundation (A Unifying Approach to GFR Estimation: Recommendations of the NKF-ASK Task Force on Reassessing the Inclusion of Race in Diagnosing Kidney Disease, JASN 202). The CKD-EPI equation should not be used for patients with unstable renal function and has not been validated in children and those over 70. Current interpretive data was last reviewed 2021. Blood 02/15/2025 3:08 AM CDT 02/15/2025 3:22 AM CDT us Quincy Goyal MD LAB BLOOD ORDERABLES Final Resu lt [place] [id number] [facility] Department [place] [address] * (ABNORMAL) Differential, auto (02/15/2025 3:08 AM CDT) Neutrophil abs 8.25(H) 1.50 - 6.50 K/cumm Imm gran abs 0.79(H) 0.00 - 0.10 K/cumm [facility] Lymphocyte abs 2.16 0.80 - 3.30 K/cumm [facility] Monocyte abs 1.14(H) 0.20 - 0.80 K/cumm [facility] Eosinophil abs 0.11 0.00 - 0.50 K/cumm [facility] Basophil abs 0.05 0.00 - 0.10 K/cumm [facility] Neutrophil pct 66.0 % [facility] Comment: Interpretive Data Percent cell count reference ranges are not reported, since discordance with absolute values may lead to misinterpretation of CBC data. Current Interpretive Data was last revised on 2017. Imm gran pct 6.3 % [facility] Comment: Interpretive Data Percent cell count reference ranges are not reported, since discordance with absolute values may lead to misinterpretation of CBC data. Current Interpretive Data was last revised on 2017. Lymphocyte pct 17.3 % [facility] Comment: Interpretive Data Percent cell count reference ranges are not reported, since discordance with absolute values may lead to misinterpretation of CBC data. Current Interpretive Data was last revised on 2017. Monocyte pct 9.1 % [facility] Comment: Interpretive Data Percent cell count reference ranges are not reported, since discordance with absolute values may lead to misinterpretation of CBC data. Current Interpretive Data was last revised on 2017. Eosinophil pct 0.9 % [facility] Comment: Interpretive Data Percent cell count reference ranges are not reported, since discordance with absolute values may lead to misinterpretation of CBC data. Current Interpretive Data was last revised on 2017. Basophil pct 0.4 % [facility] Comment: Interpretive Data Percent cell count reference ranges are not reported, since discordance with absolute values may lead to misinterpretation of CBC data. Current Interpretive Data was last revised on 2017. Blood 02/15/2025 3:08 AM CDT 02/15/2025 3:22 AM CDT us Piter Steele MD LAB BLOOD ORDERABLES Final Result [facility] [address] [facility] Department [place] [address] * (ABNORMAL) CBC with auto differential (02/15/2025 3:08 AM CDT) WBC 12.50(H) 3.80 - 9.90 K/cumm Hgb 11.3(L) 11.9 - 15.5 g/dL [facility] Hct 35.5(L) 35.6 - 45.5 % [facility] Plt 398 150 - 400 K/cumm [facility] MPV 8.8(L) 9.1 - 12.3 fL [facility] RBC 3.64(L) 3.90 - 5.20 M/cumm [facility] MCV 97.5(H) 81.3 - 96.4 fL [facility] MCH 31.0 27.1 - 33.3 pg [facility] MCHC 31.8(L) 32.3 - 35.7 g/dL [facility] RDW CV 12.5 11.1 - 14.9 % [facility] RDW SD 45.0 35.7 - 48.1 fL [facility] NRBC abs 0.00 0.00 - 0.01 K/cumm [facility] Blood 02/15/2025 3:08 AM CDT 02/15/2025 3:22 AM CDT Piter Steele MD LAB BLOOD ORDERABLES Final Result [facility] [address] [facility] Department [place] [address] * (ABNORMAL) Basic metabolic panel (02/15/2025 3:08 AM CDT) Sodium 137 135 - 145 mmol/L Potassium, pl 4.0 3.3 - 4.9 mmol/L [facility] Chloride 104 97 - 110 mmol/L [facility] CO2 28 22 - 32 mmol/L [facility] Anion gap 5 2 - 15 mmol/L [facility] BUN 5(L) 6 - 25 mg/dL [facility] Creatinine 0.57(L) 0.60 - 1.10 mg/dL [facility] Glucose 95 70 - 199 mg/dL [facility] Comment: Interpretive Data Fasting glucose >/= 126 mg/dl is diagnostic for diabetes. Fasting is defined as no caloric intake for at least 8 hours. Fasting glucose between 100 mg/dl to 125 mg/dl is diagnostic of prediabetes. In a patient with classic symptoms of hyperglycemia or hyperglycemic crisis, a random glucose >/= 200 mg/dl is diagnostic for diabetes. In the absence of unequivocal hyperglycemia, results should be confirmed by repeat testing. The classification and Diagnosis of Diabetes Diabetes Care 2021; 46: S19-S40. Current interpretive data was last revised 2022. Calcium 8.3(L) 8.5 - 10.3 mg/dL [facility] Blood 02/15/2025 3:08 AM CDT 02/15/2025 3:22 AM CDT Quincy Goyal MD LAB BLOOD ORDERABLES Final Resu lt [facility] [address] [facility] Department [place] [address] * CT Chest WO Contrast (02/14/2025 3:39 PM CDT) Anatomical Region Laterality Modality Body N/A Computed Tomogra phy 02/14/2025 10:2 7 PM CDT Narrative 02/14/2025 10:56 PM CDT EXAM DESCRIPTION: CT CHEST WO CONTRAST REASON FOR STUDY: right loculated pleural effusion sp 3 doses of tPA/Dornase Right pleural effusion with pleural drain placed 3 days ago TECHNIQUE: CT scan of the chest performed without intravenous contrast using helical scanning technique. Reconstructed coronal and sagittal MPR images reviewed. All images stored on PACS. Automated exposure control was used as a dose optimization technique for this examination. COMPARISON: 02/11/2025 FINDINGS: LUNGS: Right pleural effusion significantly decreased in volume following chest tube placement. Moderate atelectasis persists in the right lung base. Left lung clear other than faint scattered opacities trachea and major airways patent. HEART/MEDIASTINUM/BECKA: Heart size normal. Annular prosthesis. No coronary artery calcification. Mildly enlarged lymph nodes. Thoracic inlet unremarkable. UPPER ABDOMEN: Cholecystectomy. Gastric bypass. MUSCULOSKELETAL: Mild shoulder and spine arthritis. CHEST WALL: Unremarkable. IMPRESSION: Significantly decreased volume of right pleural effusion. Moderate right base atelectasis persists. THIS IS AN ELECTRONICALLY VERIFIED FINAL REPORT 02/14/2025 10:56 PM - Electronically signed by Riley RODRIGES T: Report ID: [id number] Reading Location: [id number] Procedure Note Riley Ford MD - 02/14/2025 EXAM DESCRIPTION: CT CHEST WO CONTRAST REASON FOR STUDY: right loculated pleural effusion sp 3 doses oftPA/Dornase Right pleural effusion with pleural drain placed 3 days ago TECHNIQUE: CT scan of the chest performed without intravenous contrastusing helical scanning technique. Reconstructed coronal and sagittal MPR images reviewed. All images stored on PACS. Automated exposure control was usedas a dose optimization technique for this examination. COMPARISON: 02/11/2025 FINDINGS: LUNGS: Right pleural effusion significantly decreased in volume following chest tube placement. Moderate atelectasis persists in the right lungbase. Left lung clear other than faint scattered opacities trachea and majorairways patent. HEART/MEDIASTINUM/BECKA: Heart size normal. Annular prosthesis. Nocoronary artery calcification. Mildly enlarged lymph nodes. Thoracic inlet unremarkable. UPPER ABDOMEN: Cholecystectomy. Gastric bypass. MUSCULOSKELETAL: Mild shoulder and spine arthritis. CHEST WALL: Unremarkable. IMPRESSION: Significantly decreased volume of right pleural effusion. Moderate right base atelectasis persists. THIS IS AN ELECTRONICALLY VERIFIED FINAL REPORT 02/14/2025 10:56 PM - Electronically signed by Riley Ford M.D. AR T: Report ID: [id number] Reading Location: [place] [address] PROCEDURES Final Result * Vancomycin level trough Draw lab prior to vancomycin administration (02/14/2025 12:56 PM CDT) Vancomycin trough 15.3 10.0 - 20.0 mcg/mL Blood 02/14/2025 12:5 6 PM CDT 02/14/2025 1:07 PM CDT Narrative CARO[facility] - 02/14/2025 1:31 PM CDT Draw lab prior to vancomycin administration Piter Steele MD LAB BLOOD ORDERABLES Final Result [facility] [address] [facility] Department [place] [address] * XR Chest 1 View (02/14/2025 6:03 AM CDT) Anatomical Region Laterality Modality Body, Chest N/A Computed Radiogr aphy 02/14/2025 1:50 PM CDT Narrative 02/14/2025 1:52 PM CDT EXAM DESCRIPTION: XR CHEST 1 VIEW REASON FOR STUDY: Follow up of right chest tube, pleural effusion Follow up of right chest tube, pleural effusion Transfer from [facility] 02/10 with right-sided chest pain. 02/11 Ct chest scan showed Large right pleural effusion with possible loculations. There is some air and debris within the collection suggesting this may be an empyema. Complete atelectasis of the right lower lobe and right middle lobe. Partial atelectasis of the right upper lobe. 02/12 ct guided right side chest tube placed; daily Patient is being treated for pleural space infection TECHNIQUE: AP radiographic view(s) of the chest. COMPARISON: Chest comparison 02/13/2025. FINDINGS: LUNGS: Stable consolidative density and or pleural fluid throughout the right lung base. No pneumothorax. Findings are stable.. HEART/MEDIASTINUM: Cardiac silhouette normal in size. Mediastinal and hilar contours appear normal. LINES/TUBES: Pleural drainage catheter at the right lung base, stable. BONES: No acute osseous abnormality. IMPRESSION: Stable appearance of the chest with pleural drainage catheter at the right lung base. Stable consolidative density and or pleural fluid throughout the right lung base. THIS IS AN ELECTRONICALLY VERIFIED FINAL REPORT 02/14/2025 1:52 PM - Electronically signed by Rigoberto Carnes M.D. T: Report ID: [id number] Reading Location: [place] [address] Procedure Note Cassidy Carnes MD - 02/14/2025 EXAM DESCRIPTION: XR CHEST 1 VIEW REASON FOR STUDY: Follow up of right chest tube, pleural effusion Follow [facility]. 02/11 Ct chest scan showedLarge right pleural effusion with possible loculations. There is some air and debris within the collection suggesting this may be an empyema. Complete atelectasis of the right lower lobe and right middle lobe. Partial atelectasis of the right upper lobe. 02/12 ct guided right side chesttube placed; daily Patient is being treated for pleural space infection TECHNIQUE: AP radiographic view(s) of the chest. COMPARISON: Chest comparison 02/13/2025. FINDINGS: LUNGS: Stable consolidative density and or pleural fluidthroughout the right lung base. No pneumothorax. Findings are stable.. HEART/MEDIASTINUM: Cardiac silhouette normal in size. Mediastinal andhilar contours appear normal. LINES/TUBES: Pleural drainage catheter at the right lung base, stable. BONES: No acute osseous abnormality. IMPRESSION: Stable appearance of the chest with pleural drainage catheterat the right lung base. Stable consolidative density and or pleural fluid throughout the right lung base. THIS IS AN ELECTRONICALLY VERIFIED FINAL REPORT 02/14/2025 1:52 PM - Electronically signed by Rigoberto Carnes M.D. T: Report ID: [id number] Reading Location: [place] [address] us Ronny Boykin MD IMG XR PROCEDURES Final Resu lt * eGFR (02/14/2025 3:06 AM CDT) eGFR >90 >=60 mL/min/1. 73 m2 Comment: Interpretive Data Reference Interval Normal >/= 90 mL/min/1.73m2 Mildly decreased* 60 - 89 mL/min/1.73m2 Mildly to moderately decreased 45 - 59 mL/min/1.73m2 Moderately to severely decreased 30 - 44 mL/min/1.73m2 Severely decreased 15 - 29 mL/min/1.73m2 Kidney Failure < 15 mL/min/1.73m2 *Relative to young adult level Estimated glomerular filtration rate is determined by the 2020 CKD-EPI equation recommended by the National Kidney Foundation (A Unifying Approach to GFR Estimation: Recommendations of the NKF-ASK Task Force on Reassessing the Inclusion of Race in Diagnosing Kidney Disease, JASN 2020). The CKD-EPI equation should not be used for patients with unstable renal function and has not been validated in children and those over 70. Current interpretive data was last reviewed 2021. Blood 02/14/2025 3:06 AM CDT 02/14/2025 3:30 AM CDT us Claudio Friedman MD LAB BLOOD ORDERABLES Final [facility] [address] [facility] Department of [employer] [place] [address] * (ABNORMAL) Differential, auto (02/14/2025 3:06 AM CDT) Pathologist [facility] [place] Neutrophil abs 6.58(H) 1.50 - 6.50 K/cumm Imm gran abs 0.76(H) 0.00 - 0.10 K/cumm [facility] Lymphocyte abs 2.48 0.80 - 3.30 K/cumm [facility] Monocyte abs 0.93(H) 0.20 - 0.80 K/cumm [facility] Eosinophil abs 0.13 0.00 - 0.50 K/cumm [facility] Basophil abs 0.09 0.00 - 0.10 K/cumm [facility] Neutrophil pct 60.0 % [facility] Comment: Interpretive Data Percent cell count reference ranges are not reported, since discordance with absolute values may lead to misinterpretation of CBC data. Current Interpretive Data was last revised on 2017. Imm gran pct 6.9 % [facility] Comment: Interpretive Data Percent cell count reference ranges are not reported, since discordance with absolute values may lead to misinterpretation of CBC data. Current Interpretive Data was last revised on 2017. Lymphocyte pct 22.6 % [facility] Comment: Interpretive Data Percent cell count reference ranges are not reported, since discordance with absolute values may lead to misinterpretation of CBC data. Current Interpretive Data was last revised on 2017. Monocyte pct 8.5 % [facility] Comment: Interpretive Data Percent cell count reference ranges are not reported, since discordance with absolute values may lead to misinterpretation of CBC data. Current Interpretive Data was last revised on 2017. Eosinophil pct 1.2 % [facility] Comment: Interpretive Data Percent cell count reference ranges are not reported, since discordance with absolute values may lead to misinterpretation of CBC data. Current Interpretive Data was last revised on 2017. Basophil pct 0.8 % [facility] Comment: Interpretive Data Percent cell count reference ranges are not reported, since discordance with absolute values may lead to misinterpretation of CBC data. Current Interpretive Data was last revised on 2017. Blood 02/14/2025 3:06 AM CDT 02/14/2025 3:30 AM CDT Piter Steele MD LAB BLOOD ORDERABLES Final Result Performing Organization Address City/[facility] Co de Phone Number CAROLE [address] [place] [address] * (ABNORMAL) CBC with auto differential (02/14/2025 3:06 AM CDT) Pathologist [facility] [place] WBC 10.97(H) 3.80 - 9.90 K/cumm Hgb 11.4(L) 11.9 - 15.5 g/dL [facility] Hct 35.4(L) 35.6 - 45.5 % [facility] Plt 364 150 - 400 K/cumm [facility] MPV 9.0(L) 9.1 - 12.3 fL [facility] RBC 3.62(L) 3.90 - 5.20 M/cumm [facility] MCV 97.8(H) 81.3 - 96.4 fL [facility] MCH 31.5 27.1 - 33.3 pg [facility] MCHC 32.2(L) 32.3 - 35.7 g/dL [facility] RDW CV 12.6 11.1 - 14.9 % [facility] RDW SD 45.6 35.7 - 48.1 fL [facility] NRBC abs 0.00 0.00 - 0.01 K/cumm [facility] Blood 02/14/2025 3:06 AM CDT 02/14/2025 3:30 AM CDT Piter Steele MD LAB BLOOD ORDERABLES Final Result Performing Organization Address City/[facility]/ZIP Co de Phone Number CAROLE [address] [place] [address] * (ABNORMAL) Comprehensive metabolic panel (02/14/2025 3:06 AM CDT) Pathologist [facility] [place] Sodium 137 135 - 145 mmol/L Potassium, pl 3.8 3.3 - 4.9 mmol/L [facility] Chloride 104 97 - 110 mmol/L [facility] CO2 25 22 - 32 mmol/L [facility] Anion gap 8 2 - 15 mmol/L [facility] BUN 5(L) 6 - 25 mg/dL [facility] Creatinine 0.62 0.60 - 1.10 mg/dL [facility] Glucose 90 70 - 199 mg/dL [facility] Comment: Interpretive Data Fasting glucose >/= 126 mg/dl is diagnostic for diabetes. Fasting is defined as no caloric intake for at least 8 hours. Fasting glucose between 100 mg/dl to 125 mg/dl is diagnostic of prediabetes. In a patient with classic symptoms of hyperglycemia or hyperglycemic crisis, a random glucose >/= 200 mg/dl is diagnostic for diabetes. In the absence of unequivocal hyperglycemia, results should be confirmed by repeat testing. The classification and Diagnosis of Diabetes Diabetes Care 2021; 46: S19-S40. Current interpretive data was last revised 2022. Calcium 8.5 8.5 - 10.3 mg/dL [facility] Bilirubin, total <0.2 0.1 - 1.2 mg/dL [facility] Protein, pl 5.0(L) 6.5 - 8.5 g/dL [facility] Albumin 2.2(L) 3.5 - 5.0 g/dL [facility] Alk phos 138(H) 40 - 130 Units/L [facility] ALT 11 7 - 45 Units/L [facility] AST 13 10 - 45 Units/L [facility] Blood 02/14/2025 3:06 AM CDT 02/14/2025 3:30 AM CDT us Claudio Friedman MD LAB BLOOD ORDERABLES Final R esult CAROLE [address] [facility] Department of Laboratories [place], [place] [id number] * (ABNORMAL) Differential, auto (02/13/2025 7:46 AM CDT) Neutrophil abs 8.06(H) 1.50 - 6.50 K/cumm Imm gran abs 0.67(H) 0.00 - 0.10 K/[facility] Lymphocyte abs 2.04 0.80 - 3.30 K/cumm [facility] Monocyte abs 0.91(H) 0.20 - 0.80 K/cumm [facility] Eosinophil abs 0.12 0.00 - 0.50 K/cumm [facility] Basophil abs 0.07 0.00 - 0.10 K/cumm [facility] Neutrophil pct 67.9 % [facility] Comment: Interpretive Data Percent cell count reference ranges are not reported, since discordance with absolute values may lead to misinterpretation of CBC data. Current Interpretive Data was last revised on 2017. Imm gran pct 5.6 % [facility] Comment: Interpretive Data Percent cell count reference ranges are not reported, since discordance with absolute values may lead to misinterpretation of CBC data. Current Interpretive Data was last revised on 2017. Lymphocyte pct 17.2 % [facility] Comment: Interpretive Data Percent cell count reference ranges are not reported, since discordance with absolute values may lead to misinterpretation of CBC data. Current Interpretive Data was last revised on 2017. Monocyte pct 7.7 % [facility] Comment: Interpretive Data Percent cell count reference ranges are not reported, since discordance with absolute values may lead to misinterpretation of CBC data. Current Interpretive Data was last revised on 2017. Eosinophil pct 1.0 % [facility] Comment: Interpretive Data Percent cell count reference ranges are not reported, since discordance with absolute values may lead to misinterpretation of CBC data. Current Interpretive Data was last revised on 2017. Basophil pct 0.6 % [facility] Comment: Interpretive Data Percent cell count reference ranges are not reported, since discordance with absolute values may lead to misinterpretation of CBC data. Current Interpretive Data was last revised on 2017. Blood 02/13/2025 7:46 AM CDT 02/13/2025 8:07 AM CDT us Piter Steele MD LAB BLOOD ORDERABLES Final Result CAROLE TUCKER [address] [facility] Department [place] [address] * (ABNORMAL) CBC with auto differential (02/13/2025 7:46 AM CDT) [facility] WBC 11.87(H) 3.80 - 9.90 K/cumm Hgb 11.5(L) 11.9 - 15.5 g/dL [facility] Hct 35.5(L) 35.6 - 45.5 % [facility] Plt 363 150 - 400 K/cumm [facility] MPV 9.2 9.1 - 12.3 fL [facility] RBC 3.67(L) 3.90 - 5.20 M/cumm [facility] MCV 96.7(H) 81.3 - 96.4 fL [facility] MCH 31.3 27.1 - 33.3 pg [facility] MCHC 32.4 32.3 - 35.7 g/dL [facility] RDW CV 12.7 11.1 - 14.9 % [facility] RDW SD 45.3 35.7 - 48.1 fL [facility] NRBC abs 0.00 0.00 - 0.01 K/cumm [facility] Blood 02/13/2025 7:46 AM CDT 02/13/2025 8:07 AM CDT us Piter Steele MD LAB BLOOD ORDERABLES Final Result [facility] [address] [facility] Department [place] [address] * eGFR (02/13/2025 6:17 AM CDT) [facility] eGFR >90 >=60 mL/min/1. 73 m2 Comment: Interpretive Data Reference Interval Normal >/= 90 mL/min/1.73m2 Mildly decreased* 60 - 89 mL/min/1.73m2 Mildly to moderately decreased 45 - 59 mL/min/1.73m2 Moderately to severely decreased 30 - 44 mL/min/1.73m2 Severely decreased 15 - 29 mL/min/1.73m2 Kidney Failure < 15 mL/min/1.73m2 *Relative to young adult level Estimated glomerular filtration rate is determined by the 2020 CKD-EPI equation recommended by the National Kidney Foundation (A Unifying Approach to GFR Estimation: Recommendations of the NKF-ASK Task Force on Reassessing the Inclusion of Race in Diagnosing Kidney Disease, JASN 2020). The CKD-EPI equation should not be used for patients with unstable renal function and has not been validated in children and those over 70. Current interpretive data was last reviewed 2021. Blood 02/13/2025 6:17 AM CDT 02/13/2025 6:18 AM CDT Claudio Friedman MD LAB BLOOD ORDERABLES Final R esult Performing Organization Address [facility] Co de Phone Number [address] [employer] [place] [address] * Vancomycin level trough Draw level before vancomycin is administered. (02/13/2025 6:17 AM CDT) [facility] Vancomycin trough 17.1 10.0 - 20.0 mcg/mL Blood 02/13/2025 6:17 AM CDT 02/13/2025 6:18 AM CDT Narrative [facility] - 02/13/2025 6:48 AM CDT Draw level before vancomycin is administered. Piter Steele MD LAB BLOOD ORDERABLES Final Result Performing Organization Address [facility] [[email or web address]] de Phone Number [address] [address] * (ABNORMAL) Comprehensive metabolic panel (02/13/2025 6:17 AM CDT) [facility] Sodium 134(L) 135 - 145 mmol/L Potassium, pl 4.0 3.3 - 4.9 mmol/L [facility] Chloride 103 97 - 110 mmol/L [facility] CO2 25 22 - 32 mmol/L [facility] Anion gap 6 2 - 15 mmol/L [facility] BUN 7 6 - 25 mg/dL [facility] Creatinine 0.57(L) 0.60 - 1.10 mg/dL [facility] Glucose 97 70 - 199 mg/dL [facility] Comment: Interpretive Data Fasting glucose >/= 126 mg/dl is diagnostic for diabetes. Fasting is defined as no caloric intake for at least 8 hours. Fasting glucose between 100 mg/dl to 125 mg/dl is diagnostic of prediabetes. In a patient with classic symptoms of hyperglycemia or hyperglycemic crisis, a random glucose >/= 200 mg/dl is diagnostic for diabetes. In the absence of unequivocal hyperglycemia, results should be confirmed by repeat testing. The classification and Diagnosis of Diabetes Diabetes Care 2021; 46: S19-S40. Current interpretive data was last revised 2022. Calcium 8.4(L) 8.5 - 10.3 mg/dL [facility] Bilirubin, total 0.2 0.1 - 1.2 mg/dL [facility] Protein, pl 4.8(L) 6.5 - 8.5 g/dL [facility] Albumin 2.1(L) 3.5 - 5.0 g/dL [facility] Alk phos 132(H) 40 - 130 Units/L [facility] ALT 12 7 - 45 Units/L [facility] AST 11 10 - 45 Units/L [facility] Blood 02/13/2025 6:17 AM CDT 02/13/2025 6:18 AM CDT us Claudio Friedman MD LAB BLOOD ORDERABLES Final R esult CAROLE [address] [facility] Department [place] [address] * XR Chest 1 View (02/13/2025 6:07 AM CDT) Anatomical Region Laterality Modality Body, Chest N/A Computed Radiogr aphy 02/13/2025 8:19 AM CDT Narrative 02/13/2025 8:20 AM CDT EXAM DESCRIPTION: XR CHEST 1 VIEW REASON FOR STUDY: Follow up of right chest tube, pleural effusion Transfer from [facility] 02/10 with right-sided chest pain. 02/11 Ct chest scan showed Large right pleural effusion with possible loculations. There is some air and debris within the collection suggesting this may be an empyema. Complete atelectasis of the right lower lobe and right middle lobe. Partial atelectasis of the right upper lobe. 02/12 ct guided right side chest tube placed; daily TECHNIQUE: Single-view COMPARISON: 02/11/2025 CT FINDINGS: Pigtail drain identified over the right lung base. Moderately large adjacent effusion with atelectasis or infiltrative. No pneumothorax. Central vascularity have normal caliber. IMPRESSION: Pigtail drain over the right lung base with moderately large adjacent effusion and atelectasis or infiltrate. THIS IS AN ELECTRONICALLY VERIFIED FINAL REPORT 02/13/2025 8:20 AM - Electronically signed by Giacomo Araiza M.D. RB T: Report ID: [id number] Reading Location: [id number] Procedure Note Giacomo Araiza MD - 02/13/2025 EXAM DESCRIPTION: XR CHEST 1 VIEW REASON FOR STUDY: Follow up of right chest tube, pleural effusion Transfer from [facility] 02/10 with right-sided chest pain. 02/11Ct chest scan showed Large right pleural effusion with possible loculations. There is some air and debris within the collection suggesting this may serrato empyema. Complete atelectasis of the right lower lobe and right middlelobe. Partial atelectasis of the right upper lobe. 02/12 ct guided right sidechest tube placed; daily TECHNIQUE: Single-view COMPARISON: 02/11/2025 CT FINDINGS: Pigtail drain identified over the right lung base. Moderately largeadjacent effusion with atelectasis or infiltrative. No pneumothorax. Central vascularity have normal caliber. IMPRESSION: Pigtail drain over the right lung base with moderately large adjacent effusion and atelectasis or infiltrate. THIS IS AN ELECTRONICALLY VERIFIED FINAL REPORT 02/13/2025 8:20 AM - Electronically signed by Giacomo Araiza M.D. RB T: Report ID: [id number] Reading Location: [id number] Ronny Boykin MD IMG XR PROCEDURES Final Resu lt * CT Chest Tube Insertion Right (02/12/2025 2:33 PM CDT) Anatomical Region Laterality Modality Body N/A Computed Tomogra phy, Computed Radiography 02/12/2025 3:12 PM CDT Narrative 02/12/2025 3:20 PM CDT EXAM DESCRIPTION: CT CHEST TUBE INSERTION RIGHT COMPLETED DATE/TIME: 02/12/2025 2:34 pm HISTORY: Right loculated pleural effusion Right sided chest tube CT-guided pleural catheter placement is requested. COMPARISON: CT chest 02/11/2025 PERFORMING PROVIDER: Ashok Gonzalez MD. ANESTHESIA: 1. Local Anesthesia: 1% lidocaine 2. IV conscious Sedation: 0.5 2 versed , 100 mcg Fentanyl 3. Sedation time: 37 minutes. TECHNIQUE/FINDINGS: Immediately prior to the procedure, the healthcare team performed the safety pause and verbally confirmed that the patient, the planned procedure, the site and side were accurate. Written informed consent from the patient was obtained. CT imaging performed using dose optimization techniques as appropriate to exam in accordance with CT guided procedure protocols. Preprocedure focused CT scanning demonstrates a large right pleural effusion, with significant collapse of the right lung . A suitable approach was identified. The skin was prepped for the procedure using standard aseptic technique. Local anesthesia was achieved with injection of 1% lidocaine in the skin and superficial tissues. Conscious sedation was administered with continuous monitoring of the patient's vital signs and oxygenation by the dedicated nurse. Medications and sedation time as above. Under CT guidance, the drain tract was anesthetized. A skin incision was made and blunt dissection was performed. A 10 Belgian pigtail catheter was then advanced directly into the right pleural effusion. Adequate positioning was confirmed with CT imaging. The loop was formed. The drain was secured to the skin with a suture and an adhesive bandage. The drainage catheter was connected to a Pleur-evac device. Postprocedure CT scanning demonstrates a right hydropneumothorax, with the pigtail appropriately positioned within the posterior pleural space. . The patient tolerated the procedure with no complication evident, was in stable condition, and was returned to the inpatient unit. Post procedure education was completed including pain management instructions. Estimated blood loss: <5 ml IMPRESSION: CT-guided placement of a right-sided pleural drainage catheter. THIS IS AN ELECTRONICALLY VERIFIED FINAL REPORT 02/12/2025 3:20 PM - Electronically signed by Ashok Gonzalez M.D. KR T: Report ID: [id number] Reading Location: [id number] Procedure Note Ashok Gonzalez MD - 02/12/2025 EXAM DESCRIPTION: CT CHEST TUBE INSERTION RIGHT COMPLETED DATE/TIME: 02/12/2025 2:34 pm HISTORY: Right loculated pleural effusion Right sided chest tube CT-guided pleural catheter placement isrequested. COMPARISON: CT chest 02/11/2025 PERFORMING PROVIDER: Ashok Gonzalez MD. ANESTHESIA: 1. Local Anesthesia: 1% lidocaine 2. IV conscious Sedation: 0.5 2 versed , 100 mcg Fentanyl 3. Sedation time: 37 minutes. TECHNIQUE/FINDINGS: Immediately prior to the procedure, the healthcareteam performed the safety pause and verbally confirmed that the patient, the planned procedure, the site and side were accurate. Written informedconsent from the patient was obtained. CT imaging performed using dose optimization techniques as appropriate toexam in accordance with CT guided procedure protocols. Preprocedure focused CT scanning demonstrates a large right pleuraleffusion, with significant collapse of the right lung . A suitable approach was identified. The skin was prepped for the procedure using standard aseptic technique. Local anesthesia was achieved with injection of 1% lidocaine inthe skin and superficial tissues. Conscious sedation was administered with continuous monitoring of the patient's vital signs and oxygenation by the dedicated nurse. Medicationsand sedation time as above. Under CT guidance, the drain tract was anesthetized. A skin incision was made and blunt dissection was performed. A 10 Belgian pigtail catheter was then advanced directly into the right pleural effusion. Adequatepositioning was confirmed with CT imaging. The loop was formed. The drain was securedto the skin with a suture and an adhesive bandage. The drainage catheter was connected to a Pleur-evac device. Postprocedure CT scanning demonstratesa right hydropneumothorax, with the pigtail appropriately positioned withinthe posterior pleural space. . The patient tolerated the procedure with no complication evident, was in stable condition, and was returned to the inpatient unit. Post procedure education was completed including pain management instructions. Estimated blood loss: <5 ml IMPRESSION: CT-guided placement of a right-sided pleural drainagecatheter. THIS IS AN ELECTRONICALLY VERIFIED FINAL REPORT 02/12/2025 3:20 PM - Electronically signed by Ashok Gonzalez M.D. KR T: Report ID: [id number] Reading Location: [place] [address] Piter Steele MD IMG CT PROCEDURES Fi nal Result * Cell Differential, Body Fluid (02/12/2025 1:55 PM CDT) Total cells diffed 100 % Comment: Interpretive Data Unless otherwise specified, the reference range and other method performance specifications have not been established for CSF/Body Fluid tests. The test results should be integrated into the clinical context for interpretation. Current interpretive data was last revised on 2019. Neutrophils, fld 66 % CAROLE Comment:degenerated nuclei n oted Lymphs, fld 18 % CAROLE Comment:degenerated nuclei n oted Monocyte, fld 15 % CAROLE Comment:degenerated nuclei n oted Macrophages, fld 1 % CAROLE Comment:degenerated nuclei n oted Fluid 02/12/2025 1:55 PM CDT 02/12/2025 2:31 PM CDT Ronny Boykin MD LAB BODY FLUIDS AND STOOLS O RDERABLES Final Result [facility] Department [place] [address] * Cell count w/rflx diff, body fluid (02/12/2025 1:55 PM CDT) Specimen type, fld Pleural Color, fld Chio CAROLE Clarity, fld Cloudy CAROLE Nucleated cells, fld 12,365 /cumm CAROLE Comment: Interpretive Data Unless otherwise specified, the reference range and other method performance specifications have not been established for CSF/Body Fluid tests. The test results should be integrated into the clinical context for interpretation. Current interpretive data was last revised on 2019. RBC, fld 7,000 /cumm CAROLE Fluid 02/12/2025 1:55 PM CDT 02/12/2025 2:31 PM CDT Ronny Boykin MD LAB BODY FLUIDS AND STOOLS O RDERABLES Edited Result - Final Performing Organization Address [facility]/ZIP Co de Phone Number CAROLE [address] [place] [address] * Aerobic and anaerobic culture and gram stain Pleural fluid Pleural (02/12/2025 1:55 PM CDT) Direct Specimen Exam Stain: Cytospin Gram stain shows: Moderate polymorphonuclear leukocytes seen. Other cellular material present. No organisms seen. Comment:Testing performed by : [facility], [address] [place] [address] Report Final Report: No growth CAROLE Comment:Testing performed by : [facility], [address] [place]., [address] Pleural fluid (Pleural) 02/12/2025 1:55 PM CDT 02/12/2025 5:53 PM CDT Narrative CAROLE - 02/16/2025 10:43 AM CDT Testing performed by [facility] Microbiology Laboratory ([phone]) Specimens submitted from normally sterile body sites will have all bacterial morphotypes identified. Specimens that contain grossly mixed haydee and/or are from body sites that are not normally sterile will be examined for Staphylococcus aureus, Pseudomonas aeruginosa, beta-hemolytic strep, vancomycin-resistant Enterococcus, Bacteroides, Parabacteroides, Clostridium perfringens and fungus. If any of these are isolated, the organism will be reported. Current interpretive data was last revised on 2019. Ronny Boykin MD LAB MICROBIOLOGY - GENERAL O RDERABLES Final Result Performing Organization Address City/[facility]/ZIP Co de Phone Number CAROLE [facility] Department [place] [address] * Triglycerides, body fluid (02/12/2025 1:55 PM CDT) Specimen type, fld Pleural Triglycerides, fld 54 mg/dL CAROLE TUCKER Comment: The above specimen type is not cleared for use in this method by the FDA. Analytical characteristics have been validated by the performing laboratory. No reference range established - see interpretive comments. Interpretive Data Pleural - Triglycerides >110 mg/dL is indicative of chylothorax while triglyceride < 50 mg/dL rules out chylothorax. Peritoneal - Triglycerides > 200 mg/dL is indicative of chylous ascites. References: Pleural Fluid characteristics of Chylothorax. [facility] Proceedings. August 2008; 84(2):129-133 Jani Textbook of Clinical Chemistry and Molecular Diagnostics, Sixth Edition. Elsevier Press. 2018. Chapter 43, Body Fluids, p. 925 Snippets Test directory, Body Fluid Reference Intervals and/or Interpretative Information. [email or web address] [facility]. Practical Guide to the Analytical Validation of Body Fluid Chemistry Testing. September 2012. 1-9. Current Interpretive Data was last revised 2019. Fluid 02/12/2025 1:55 PM CDT 02/12/2025 2:31 PM CDT Ronny Boykin MD LAB BODY FLUIDS AND STOOLS O RDERABLES Final Result CAROLE [address] [facility] Department [place] [address] * Protein, body fluid (02/12/2025 1:55 PM CDT) Specimen type, fld Pleural Protein, fld 3.6 g/dL CAROLE TUCKER Comment: The above specimen type is not cleared for use in this method by the FDA. Analytical characteristics have been validated by the performing laboratory. No reference range established - see interpretive comments. Interpretive Data Pleural and Pericardial Fluids - Ratio of fluid to serum protein > or = 0.5 is indicative of exudate and < 0.5 of transudate. Peritoneal - Protein > or = 3.0 g/dL is indicative of exudates and < 3.0 g/dL of transudates. Reference: Jani Textbook of Clinical Chemistry and Molecular Diagnostics, Sixth Edition. Elsevier Press. 2018. Chapter 43, Body Fluids, p. 925 Current Interpretive Data was last revised 2019. Fluid 02/12/2025 1:55 PM CDT 02/12/2025 2:31 PM CDT Ronny Boykin MD LAB BODY FLUIDS AND STOOLS O RDERABLES Final Result Performing Organization Address [facility] Co de Phone Number CAROLE [address] [address] * Lactate dehydrogenase, body fluid (02/12/2025 1:55 PM CDT) Specimen type, fld Pleural LD, fld 3,600 Units/L CAROLE TUCKER Comment: The above specimen type is not cleared for use in this method by the FDA. Analytical characteristics have been validated by the performing laboratory. No reference range established - see interpretive comments. Interpretive Data Ratio of fluid to serum LD > or = 0.6 is indicative of exudate and < 0.6 of transudate. References: The Biochemistry of Body Fluids. Association of Clinical Biochemists in [place]. April 2009; pp 1-36. Jani Textbook of Clinical Chemistry and Molecular Diagnostics, Sixth Edition. Elsevier Press. 2018. Chapter 43, Body Fluids, p. 925 Current Interpretive Data was last revised 2019. Fluid 02/12/2025 1:55 PM CDT 02/12/2025 2:31 PM CDT Ronny Boykin MD LAB BODY FLUIDS AND STOOLS O RDERABLES Final Result Performing Organization Address [facility] Co de Phone Number CAROLE [address] [facility] [employer] [place] [address] * Glucose, body fluid (02/12/2025 1:55 PM CDT) Specimen type, fld Pleural Body site, fld Pleural fluid, right CAROLE TUCKER Glucose, fld <2 mg/dL CAROLE TUCKER Comment: The above specimen type is not cleared for use in this method by the FDA. Analytical characteristics have been validated by the performing laboratory. No reference range established - see interpretive comments. Interpretive Data Pleural - Glucose < 60 mg/dL is indicative of complicated parapneumonic effusions. Peritoneal - normally equivalent to plasma glucose. Will be less than concurrent plasma value in peritoneal bacterial infections. Pericardial - Fluid to serum glucose ratio < 0.3 is indicative of bacterial infection. Pancreatic cyst fluid - glucose concentrations have been shown to be a useful aid for distinguishing mucinous from non-mucinous cysts. Low glucose concentrations in a pancreatic cyst fluid (< 40-50 mg/dL) is suggestive of a mucinous cyst. However, body fluid glucose concentrations may be decreased due to increased cellular metabolism and should be interpreted in the context of blood glucose concentrations and in conjunction with other laboratory and clinical findings. References: Jani Textbook of Clinical Chemistry and Molecular Diagnostics, Sixth Edition. Elsevier Press. 2018. Chapter 43, Body Fluids, p. 925 Pleural effusions: Evaluation and Management. Anibal Clin J Med 2005;72:854-72. Snippets Test directory, Body Fluid Reference Intervals and/or Interpretative Information. [email or web address] August ALMAZAN et al. Pancreatic cyst fluid glucose: rapid, inexpensive, and accurate diagnosis of mucinous pancreatic cysts. Surgery 2018;163:600-5. Ribdon DG et al. Differential diagnosis of pancreatic cysts: A prospective study on the role of intra-cystic glucose concentration. Digestive Liver Dis 2020;52:1026-32. Current Interpretive Data was last revised 2021. Fluid 02/12/2025 1:55 PM CDT 02/12/2025 2:31 PM CDT Narrative [facility] - 02/12/2025 4:17 PM CDT Body Fluid Type->Pleural us Ronny Boykin MD LAB BODY FLUIDS AND STOOLS O RDERABLES Final Result [facility] [address] [facility] Department [place] [address] * pH, Pleural Fluid (02/12/2025 1:55 PM CDT) Body site, fld Pleural fluid, right Comment:Testing performed by : [facility], [address] [place]., [address] pH, fld 6.84 CAROLE TUCKER Comment: The above specimen type is not cleared for use in this method by the FDA. Analytical characteristics have been validated by the performing laboratory. No reference range established - see interpretive comments. Interpretive Data Pleural - pH is approximately 7.64. pH <7.2 is indicative of complicated parapneumonic effusions. References: Jani Textbook of Clinical Chemistry and Molecular Diagnostics, Sixth Edition. Elsevier Press. 2018. Chapter 43, Body Fluids, p. 925 Pleural effusions: Evaluation and Management. Anibal Clin J Med 2005;72:854-72. Current Interpretive Data was last revised 2019. Testing performed by: [facility], [address] [place]., [address] Fluid 02/12/2025 1:55 PM CDT 02/12/2025 3:26 PM CDT us Ronny Boykin MD LAB BODY FLUIDS AND STOOLS O RDERABLES Final Result [facility] [address] [facility] Department [place] [address] * eGFR (02/12/2025 6:36 AM CDT) eGFR >90 >=60 mL/min/1. 73 m2 Comment: Interpretive Data Reference Interval Normal >/= 90 mL/min/1.73m2 Mildly decreased* 60 - 89 mL/min/1.73m2 Mildly to moderately decreased 45 - 59 mL/min/1.73m2 Moderately to severely decreased 30 - 44 mL/min/1.73m2 Severely decreased 15 - 29 mL/min/1.73m2 Kidney Failure < 15 mL/min/1.73m2 *Relative to young adult level Estimated glomerular filtration rate is determined by the 2020 CKD-EPI equation recommended by the National Kidney Foundation (A Unifying Approach to GFR Estimation: Recommendations of the NKF-ASK Task Force on Reassessing the Inclusion of Race in Diagnosing Kidney Disease, JASN 2020). The CKD-EPI equation should not be used for patients with unstable renal function and has not been validated in children and those over 70. Current interpretive data was last reviewed 2021. Blood 02/12/2025 6:36 AM CDT 02/12/2025 6:42 AM CDT Piter Steele MD LAB BLOOD ORDERABLES Final Result [facility] [address] [facility] Department [place] [address] * (ABNORMAL) Differential, auto (02/12/2025 6:36 AM CDT) Pathologist [facility] [place] Neutrophil abs 10.03(H) 1.50 - 6.50 K/cumm Imm gran abs 0.56(H) 0.00 - 0.10 K/cumm [facility] Lymphocyte abs 2.14 0.80 - 3.30 K/cumm [facility] Monocyte abs 1.11(H) 0.20 - 0.80 K/cumm [facility] Eosinophil abs 0.19 0.00 - 0.50 K/cumm [facility] Basophil abs 0.05 0.00 - 0.10 K/cumm [facility] Neutrophil pct 71.2 % [facility] Comment: Interpretive Data Percent cell count reference ranges are not reported, since discordance with absolute values may lead to misinterpretation of CBC data. Current Interpretive Data was last revised on 2017. Imm gran pct 4.0 % [facility] Comment: Interpretive Data Percent cell count reference ranges are not reported, since discordance with absolute values may lead to misinterpretation of CBC data. Current Interpretive Data was last revised on 2017. Lymphocyte pct 15.2 % [facility] Comment: Interpretive Data Percent cell count reference ranges are not reported, since discordance with absolute values may lead to misinterpretation of CBC data. Current Interpretive Data was last revised on 2017. Monocyte pct 7.9 % [facility] Comment: Interpretive Data Percent cell count reference ranges are not reported, since discordance with absolute values may lead to misinterpretation of CBC data. Current Interpretive Data was last revised on 2017. Eosinophil pct 1.3 % [facility] Comment: Interpretive Data Percent cell count reference ranges are not reported, since discordance with absolute values may lead to misinterpretation of CBC data. Current Interpretive Data was last revised on 2017. Basophil pct 0.4 % [facility] Comment: Interpretive Data Percent cell count reference ranges are not reported, since discordance with absolute values may lead to misinterpretation of CBC data. Current Interpretive Data was last revised on 2017. Blood 02/12/2025 6:36 AM CDT 02/12/2025 6:42 AM CDT Piter Steele MD LAB BLOOD ORDERABLES Final Result [place] [id number] [facility] Department [place] [address] * (ABNORMAL) CBC with auto differential (02/12/2025 6:36 AM CDT) WBC 14.08(H) 3.80 - 9.90 K/cumm Hgb 11.8(L) 11.9 - 15.5 g/dL [facility] Hct 36.1 35.6 - 45.5 % [facility] Plt 377 150 - 400 K/cumm [facility] MPV 9.3 9.1 - 12.3 fL [facility] RBC 3.72(L) 3.90 - 5.20 M/cumm [facility] MCV 97.0(H) 81.3 - 96.4 fL [facility] MCH 31.7 27.1 - 33.3 pg [facility] MCHC 32.7 32.3 - 35.7 g/dL [facility] RDW CV 12.7 11.1 - 14.9 % [facility] RDW SD 45.2 35.7 - 48.1 fL [facility] NRBC abs 0.00 0.00 - 0.01 K/cumm [facility] Blood 02/12/2025 6:36 AM CDT 02/12/2025 6:42 AM CDT Piter Steele MD LAB BLOOD ORDERABLES Final Result Performing Organization Address [facility] Co de Phone Number [facility] [address] [employer] [place] [address] * (ABNORMAL) aPTT (02/12/2025 6:36 AM CDT) aPTT 38(H) 22 - 37 sec Comment: Ref Range High Interpretive data aPTT test has not been evaluated for monitoring heparin therapy. The anti-Xa is the preferred test. Current interpretive data was last revised on 2019. Blood 02/12/2025 6:36 AM CDT 02/12/2025 6:42 AM CDT Piter Steele MD LAB BLOOD ORDERABLES Final Result Performing Organization Address [facility] Co de Phone Number [facility] [address] [employer] [place] [address] * (ABNORMAL) Protime-INR (02/12/2025 6:36 AM CDT) PT 12.10 12.00 - 14.60 sec INR 0.89(L) 0.90 - 1.20 [facility] Comment: Ref Range High Interpretive data Oral anticoagulant therapeutic ranges: Venous thromboembolism prophylaxis or treatment: 2.0-3.0 CARDIOLOGY Standard range: 2.0-3.0 High-intensity range: 2.5-3.5 Refer to indication-specific guidelines for appropriate target ranges for prosthetic heart valve replacement. Current interpretive data was last revised on 2019. Blood 02/12/2025 6:36 AM CDT 02/12/2025 6:42 AM CDT Piter Steele MD LAB BLOOD ORDERABLES Final Result Performing Organization Address [facility] Co de Phone Number [facility] [address] [employer] [place] [address] * Vancomycin level trough (02/12/2025 6:36 AM CDT) Vancomycin trough 15.3 10.0 - 20.0 mcg/mL Blood 02/12/2025 6:36 AM CDT 02/12/2025 6:42 AM CDT Quincy Goyal MD LAB BLOOD ORDERABLES Final Resu lt [facility] [address] [facility] Department [place] [address] * (ABNORMAL) Comprehensive metabolic panel (02/12/2025 6:36 AM CDT) Pathologist [facility] [place] Sodium 136 135 - 145 mmol/L Potassium, pl 3.7 3.3 - 4.9 mmol/L [facility] Chloride 103 97 - 110 mmol/L [facility] CO2 23 22 - 32 mmol/L [facility] Anion gap 10 2 - 15 mmol/L [facility] BUN 10 6 - 25 mg/dL [facility] Creatinine 0.58(L) 0.60 - 1.10 mg/dL [facility] Glucose 86 70 - 199 mg/dL [facility] Comment: Interpretive Data Fasting glucose >/= 126 mg/dl is diagnostic for diabetes. Fasting is defined as no caloric intake for at least 8 hours. Fasting glucose between 100 mg/dl to 125 mg/dl is diagnostic of prediabetes. In a patient with classic symptoms of hyperglycemia or hyperglycemic crisis, a random glucose >/= 200 mg/dl is diagnostic for diabetes. In the absence of unequivocal hyperglycemia, results should be confirmed by repeat testing. The classification and Diagnosis of Diabetes Diabetes Care 2021; 46: S19-S40. Current interpretive data was last revised 2022. Calcium 8.8 8.5 - 10.3 mg/dL [facility] Bilirubin, total 0.2 0.1 - 1.2 mg/dL [facility] Protein, pl 5.2(L) 6.5 - 8.5 g/dL [facility] Albumin 2.3(L) 3.5 - 5.0 g/dL [facility] Alk phos 157(H) 40 - 130 Units/L [facility] ALT 13 7 - 45 Units/L [facility] AST 12 10 - 45 Units/L [facility] Blood 02/12/2025 6:36 AM CDT 02/12/2025 6:42 AM CDT Piter Steele MD LAB BLOOD ORDERABLES Final Result Performing Organization Address [facility] Co de Phone Number [address] [address] * HIV 1/2 Antibody plus p24 Antigen Blood (02/11/2025 9:51 PM CDT) HIV 1/2 ab + p24 ag Nonreactive Nonreactive Comment:Nonreactive for HIV- 1 antigen and HIV-1/HIV-2 antibodies. No laboratory evidence of HIV infection. If acute HIV infection is suspected, consider testing for HIV-1 RNA. Current interpretive data was last revised on 22. Blood 02/11/2025 9:51 PM CDT 02/11/2025 10:05 PM CDT Claudio Friedman MD LAB MICROBIOLOGY - GENERAL O RDERABLES Final Result Performing Organization Address [facility] Co de Phone Number [address] [address] * Blood culture Blood (02/11/2025 7:08 PM CDT) Report Final Report: No growth Comment:Testing performed by : [facility], [address], [place]., [address] Blood 02/11/2025 7:08 PM CDT 02/11/2025 11:51 PM CDT Narrative [facility] 02/16/2025 7:00 AM CDT From a different site than #1. Collection->Peripheral 1. Blood cultures are incubated for 4 days on a continuously monitored blood culture system. The first report of a negative culture is issued within 24 hours of receipt of the specimen in the laboratory. 2. Positive culture results are reported as soon as they are detected. 3. The most important factor for detection of microbes in the setting of bloodstream infection is the volume of blood submitted for culture. Failure to collect an optimal blood volume can result in false negative blood cultures. 4. For pediatric patients, the recommended blood volume to collect follows a weight based strategy. See the electronic test catalog for collection instructions. 5. For positive blood cultures, a rapid molecular test may be performed for organism identification using the bryan ePlex blood culture identification panel for gram positive (BCID-GP) and gram negative (BCID-GN) organisms. This nucleic acid amplification test detects microbial DNA in positive blood culture broth. This assay has been cleared by the [place] Food and Drug Administration and its performance characteristics have been verified by the [facility] Microbiology Laboratory. For questions about this culture, contact the Microbiology Laboratory at [phone]. Interpretive data was last revised on 24. Claudio Friedman MD LAB MICROBIOLOGY - GENERAL O RDERABLES Final Result [facility] [address] [facility] Department [place] [address] * Blood culture Blood (02/11/2025 7:03 PM CDT) Report Final Report: No growth Comment:Testing performed by : [facility], [address], [place]., [address] Blood 02/11/2025 7:03 PM CDT 02/11/2025 11:51 PM CDT [facility] 02/16/2025 7:00 AM CDT Collection->Peripheral 1. Blood cultures are incubated for 4 days on a continuously monitored blood culture system. The first report of a negative culture is issued within 24 hours of receipt of the specimen in the laboratory. 2. Positive culture results are reported as soon as they are detected. 3. The most important factor for detection of microbes in the setting of bloodstream infection is the volume of blood submitted for culture. Failure to collect an optimal blood volume can result in false negative blood cultures. 4. For pediatric patients, the recommended blood volume to collect follows a weight based strategy. See the electronic test catalog for collection instructions. 5. For positive blood cultures, a rapid molecular test may be performed for organism identification using the bryan ePlex blood culture identification panel for gram positive (BCID-GP) and gram negative (BCID-GN) organisms. This nucleic acid amplification test detects microbial DNA in positive blood culture broth. This assay has been cleared by the [place] Food and Drug Administration and its performance characteristics have been verified by the [facility] Microbiology Laboratory. For questions about this culture, contact the Microbiology Laboratory at [phone]. Interpretive data was last revised on 24. Claudio Friedman MD LAB MICROBIOLOGY - GENERAL O RDERABLES Final Result Performing Organization Address City/[facility]/ZIP Co de Phone Number [address] [place] [address] * (ABNORMAL) Erythrocyte sedimentation rate (02/11/2025 3:40 PM CDT) Erythrocyte sedimentation rate 55(H) 1 - 20 mm/hr Blood 02/11/2025 3:40 PM CDT 02/11/2025 3:55 PM CDT Ronny Boykin MD LAB BLOOD ORDERABLES Final R esult Performing Organization Address [facility] Co de Phone Number [address] [address] * (ABNORMAL) Protime-INR (02/11/2025 3:40 PM CDT) PT 16.60(H) 12.00 - 14.60 sec Comment:Ref Range High INR 1.33(H) 0.90 - 1.20 [facility] Comment: Ref Range High Interpretive data Oral anticoagulant therapeutic ranges: Venous thromboembolism prophylaxis or treatment: 2.0-3.0 CARDIOLOGY Standard range: 2.0-3.0 High-intensity range: 2.5-3.5 Refer to indication-specific guidelines for appropriate target ranges for prosthetic heart valve replacement. Current interpretive data was last revised on 2019. Blood 02/11/2025 3:40 PM CDT 02/11/2025 3:55 PM CDT Ronny Boykin MD LAB BLOOD ORDERABLES Final R esult Performing Organization Address City/[facility]/ZIP Co de Phone Number [facility] [place] [address] * (ABNORMAL) CBC without differential (02/11/2025 3:40 PM CDT) WBC 15.26(H) 3.80 - 9.90 K/cumm Hgb 11.5(L) 11.9 - 15.5 g/dL [facility] Hct 34.5(L) 35.6 - 45.5 % [facility] Plt 333 150 - 400 K/cumm [facility] MPV 9.3 9.1 - 12.3 fL [facility] RBC 3.68(L) 3.90 - 5.20 M/cumm [facility] MCV 93.8 81.3 - 96.4 fL [facility] MCH 31.3 27.1 - 33.3 pg [facility] MCHC 33.3 32.3 - 35.7 g/dL [facility] RDW CV 12.4 11.1 - 14.9 % [facility] RDW SD 42.8 35.7 - 48.1 fL [facility] NRBC abs 0.00 0.00 - 0.01 K/cumm [facility] Blood 02/11/2025 3:40 PM CDT 02/11/2025 3:55 PM CDT Piter Steele MD LAB BLOOD ORDERABLES Final Result [facility] [address] [employer] [place] [address] * Hemoglobin A1c (02/11/2025 3:40 PM CDT) Hgb A1C 5.4 4.0 - 5.6 % Estimated Average Glucose 108 mg/dL [facility] Comment: The ADA recommends reporting an estimated Average Glucose (eAG) with all Hemoglobin A1c results using the equation derived from a study of 507 normal and diabetic adults. Minority populations were underrepresented and children were not included. (Diabetes Care 31:4411-8025, 2008). The eAG is not equivalent to a fasting glucose. Blood 02/11/2025 3:40 PM CDT 02/11/2025 3:55 PM CDT Piter Steele MD LAB BLOOD ORDERABLES Final Result [facility] [address] [facility] Department [place] [address] * Cytology (02/11/2025 2:46 PM CDT) Pleura (Cytology) 02/11/2025 2:46 PM CDT 02/13/2025 6:47 AM CDT Narrative 02/16/2025 4:13 PM CDT EPIC results best viewed via link to PDF [facility] [place] [address] Note to Patients: This report may contain a detailed description of human tissue sent by a health care provider to the laboratory for pathologic evaluation. The content of this report is essential for diagnosis and may provide important critical findings. This information may be unfamiliar to patients to review without a medical professional present. It is advised that the patient review this report in the presence of a health care provider who can answer questions and explain the details. CYTOPATHOLOGY REPORT FINAL Patient Name: HOLLY GUARDADO Gender: F : 1980 (Age: 44) Address: [address] [place] [address] Hospital #: [id number] Taken:02/11/2025 Received:02/13/2025 Reported: 02/16/2025 Patient Type: [facility] INPATIENT Service: Medical Location: Physician(s): MD Saul Bailey M.D. FINAL DIAGNOSIS A. Pleural fluid, right: - Negative for malignancy - Necroinflammatory debris Comments The cell block confirms the diagnosis. [facility]02/16/2025 16:13 By this signature, I attest that the above diagnosis is based upon my personal examination of the slides(and/or other material indicated in the diagnosis). Jens Fontenot DO Report Electronically Reviewed and Signed Out By Jens Fontenot DO 02/16/2025 16:13:09 Markell Lubin MS, CT(ASCP)PA Gross Description A. Pleural, right: 15 ml yellow fluid - 1 Pap stained ThinPrep, 1 Pap stained cytospin, 1 Diff-Quik stained cytospin, and cell block. (ep) Clinical Diagnosis and History The patient is a 44 year old female with a right pleural effusion. Microscopic slide review and interpretation for this case was performed at [facility], Department of Surgical Pathology, [address] [facility], [place] [id number], [place] [address] CLIA # [id number] REPORT IMAGES AND SCANNED DOCUMENTS, IF INCLUDED, ONLY VIEWABLE IN PDF VERSION OF REPORT The performance characteristics of some immunohistochemical stains, in-situ hybridization and fluorescence in-situ hybridization tests and immunophenotyping by flow cytometry cited in this report (if any) were determined by the Surgical Pathology and Flow Cytometry Departments at [facility] as part of an ongoing quality assurance assistant program and in compliance with federally mandated regulations drawn from the Clinical Laboratory Improvement Act of 1988 (CLIA '88). Some of these tests rely on the use of analyte specific reagents and are subject to specific labeling requirements by the US Food and Drug Administration. Such diagnostic tests may only be performed in a facility that is certified by the Department of Health and Human Services as a high complexity laboratory under CLIA '88. The FDA has determined that such clearance or approval is not necessary. This test is used for clinical purposes. It should not be regarded as investigational or for research. Nevertheless, federal rules concerning the medical use of analyte specific reagents require that the following disclaimer be attached to the report: This test was developed and its performance characteristics determined by the Surgical Pathology and Flow Cytometry Departments of [facility]. It has not been cleared or approved by the U. S. Food and Drug Administration. Ronny Boykin MD LAB CYTOLOGY ORDERABLES Nanda mabry Result * CT Chest W Contrast (02/11/2025 10:33 AM CDT) Anatomical Region Laterality Modality Body N/A Computed Tomogra phy 02/11/2025 1:59 PM CDT Narrative 02/11/2025 2:04 PM CDT EXAM DESCRIPTION: CT CHEST W CONTRAST REASON FOR STUDY: Pleural effusion, malignancy suspected, Loculated pleural effusion, empyema Pleural effusion, malignancy suspecte TECHNIQUE: CT scan of the chest performed with intravenous contrast using helical scanning technique with dynamic intravenous contrast injection. Reconstructed coronal and sagittal MPR images reviewed. All images stored on PACS. Automated exposure control was used as a dose optimization technique for this examination. CONTRAST TYPE/DOSE: 100mL of IOVERSOL 350 MG IODINE/ML INTRAVENOUS SYRINGE injected via intravenous COMPARISON: None FINDINGS: LUNGS: The left lung is clear. Complete atelectasis of the right lower lobe right middle lobe are evident. Partial atelectasis of the right upper lobe is seen. No clear evidence of an underlying mass is identified. PLEURA: Large right pleural effusion is evident. There appears to be some air and debris within the collection suggesting this may be an empyema. Portions of the fluid may be loculated. No effusion is seen in the left. MEDIASTINUM/BECKA: No masses are seen. 1 or 2 mildly prominent precarinal lymph nodes are noted.. HEART: Heart size is normal with no pericardial effusion. VASCULATURE: No thoracic aortic aneurysm. AXILLA: No adenopathy. CHEST WALL: No masses. No subcutaneous air. HARDWARE/LINES/TUBES: None. UPPER ABDOMEN: Surgical changes are noted of the stomach. The gallbladder has apparently been removed upper abdominal structures otherwise appear unremarkable. MUSCULOSKELETAL: No significant abnormality. OTHER: No other significant abnormality. IMPRESSION: 1. Large right pleural effusion with possible loculations. There is some air and debris within the collection suggesting this may be an empyema. 2. Complete atelectasis of the right lower lobe and right middle lobe. Partial atelectasis of the right upper lobe. No clear evidence of an underlying mass is identified. Malignancy not excluded. Pleural sampling and bronchoscopy might be helpful. THIS IS AN ELECTRONICALLY VERIFIED FINAL REPORT 02/11/2025 2:04 PM - Electronically signed by Ashok Cheema M.D. KH T: Report ID: [id number] Reading Location: [place] [address] Procedure Note Ashok Cheema MD - 02/11/2025 EXAM DESCRIPTION: CT CHEST W CONTRAST REASON FOR STUDY: Pleural effusion, malignancy suspected, Loculatedpleural effusion, empyema Pleural effusion, malignancy suspecte TECHNIQUE: CT scan of the chest performed with intravenous contrast using helical scanning technique with dynamic intravenous contrast injection. Reconstructed coronal and sagittal MPR images reviewed. All images storedon PACS. Automated exposure control was used as a dose optimizationtechnique for this examination. CONTRAST TYPE/DOSE: 100mL of IOVERSOL 350 MG IODINE/ML INTRAVENOUS SYRINGE injected via intravenous COMPARISON: None FINDINGS: LUNGS: The left lung is clear. Complete atelectasis of theright lower lobe right middle lobe are evident. Partial atelectasis of theright upper lobe is seen. No clear evidence of an underlying mass isidentified. PLEURA: Large right pleural effusion is evident. There appears to besome air and debris within the collection suggesting this may be an empyema. Portions of the fluid may be loculated. No effusion is seen in the left. MEDIASTINUM/BECKA: No masses are seen. 1 or 2 mildly prominentprecarinal lymph nodes are noted.. HEART: Heart size is normal with no pericardial effusion. VASCULATURE: No thoracic aortic aneurysm. AXILLA: No adenopathy. CHEST WALL: No masses. No subcutaneous air. HARDWARE/LINES/TUBES: None. UPPER ABDOMEN: Surgical changes are noted of the stomach. Thegallbladder has apparently been removed upper abdominal structures otherwise appear unremarkable. MUSCULOSKELETAL: No significant abnormality. OTHER: No other significant abnormality. IMPRESSION: 1. Large right pleural effusion with possible loculations. There is someair and debris within the collection suggesting this may be an empyema. 2. Complete atelectasis of the right lower lobe and right middle lobe. Partial atelectasis of the right upper lobe. No clear evidence of an underlying mass is identified. Malignancy not excluded. Pleural samplingand bronchoscopy might be helpful. THIS IS AN ELECTRONICALLY VERIFIED FINAL REPORT 02/11/2025 2:04 PM - Electronically signed by Ashok Cheema M.D. T: Report ID: [id number] Reading Location: [id number] Piter Steele MD IMG CT PROCEDURES Fi nal Result * Blood culture Blood (02/11/2025 2:32 AM CDT) Report Final Report: No growth Comment:Testing performed by : [facility], [address] [place]., [address] Blood 02/11/2025 2:32 AM CDT 02/11/2025 5:08 AM CDT Narrative CERNER - 02/15/2025 7:00 AM CDT Collection->Peripheral 1. Blood cultures are incubated for 4 days on a continuously monitored blood culture system. The first report of a negative culture is issued within 24 hours of receipt of the specimen in the laboratory. 2. Positive culture results are reported as soon as they are detected. 3. The most important factor for detection of microbes in the setting of bloodstream infection is the volume of blood submitted for culture. Failure to collect an optimal blood volume can result in false negative blood cultures. 4. For pediatric patients, the recommended blood volume to collect follows a weight based strategy. See the electronic test catalog for collection instructions. 5. For positive blood cultures, a rapid molecular test may be performed for organism identification using the bryan ePlex blood culture identification panel for gram positive (BCID-GP) and gram negative (BCID-GN) organisms. This nucleic acid amplification test detects microbial DNA in positive blood culture broth. This assay has been cleared by the [place] Food and Drug Administration and its performance characteristics have been verified by the [facility] Microbiology Laboratory. For questions about this culture, contact the Microbiology Laboratory at [phone]. Interpretive data was last revised on 24. us Quincy Goyal MD LAB MICROBIOLOGY - GENERAL [facility]ERS[facility] Final Result [facility] [address] [place] [address] * eGFR (02/11/2025 2:28 AM CDT) eGFR >90 >=60 mL/min/1. 73 m2 Comment: Interpretive Data Reference Interval Normal >/= 90 mL/min/1.73m2 Mildly decreased* 60 - 89 mL/min/1.73m2 Mildly to moderately decreased 45 - 59 mL/min/1.73m2 Moderately to severely decreased 30 - 44 mL/min/1.73m2 Severely decreased 15 - 29 mL/min/1.73m2 Kidney Failure < 15 mL/min/1.73m2 *Relative to young adult level Estimated glomerular filtration rate is determined by the 2020 CKD-EPI equation recommended by the National Kidney Foundation (A Unifying Approach to GFR Estimation: Recommendations of the NKF-ASK Task Force on Reassessing the Inclusion of Race in Diagnosing Kidney Disease, JASN 2020). The CKD-EPI equation should not be used for patients with unstable renal function and has not been validated in children and those over 70. Current interpretive data was last reviewed 2021. Blood 02/11/2025 2:28 AM CDT 02/11/2025 2:41 AM CDT us Piter Steele MD LAB BLOOD ORDERABLES Final Result Performing Organization Address [facility] Co de Phone Number [facility] [address] of [employer] [place] [address] * Blood culture Blood (02/11/2025 2:28 AM CDT) Report Final Report: No growth Comment:Testing performed by : [facility], [address], [place]., [address] Blood 02/11/2025 2:28 AM CDT 02/11/2025 5:08 AM CDT Narrative CAROLE - 02/15/2025 7:00 AM CDT From a different site than #1. Collection->Peripheral 1. Blood cultures are incubated for 4 days on a continuously monitored blood culture system. The first report of a negative culture is issued within 24 hours of receipt of the specimen in the laboratory. 2. Positive culture results are reported as soon as they are detected. 3. The most important factor for detection of microbes in the setting of bloodstream infection is the volume of blood submitted for culture. Failure to collect an optimal blood volume can result in false negative blood cultures. 4. For pediatric patients, the recommended blood volume to collect follows a weight based strategy. See the electronic test catalog for collection instructions. 5. For positive blood cultures, a rapid molecular test may be performed for organism identification using the bryan ePlex blood culture identification panel for gram positive (BCID-GP) and gram negative (BCID-GN) organisms. This nucleic acid amplification test detects microbial DNA in positive blood culture broth. This assay has been cleared by the [place] Food and Drug Administration and its performance characteristics have been verified by the [facility] Microbiology Laboratory. For questions about this culture, contact the Microbiology Laboratory at [phone]. Interpretive data was last revised on 24. Quincy Goyal MD LAB MICROBIOLOGY - [facility] Final Result Performing Organization Address City/[facility] Co de Phone Number CAROLE [address] [facility] Department [place] [address] * hCG, blood, quantitative (02/11/2025 2:28 AM CDT) hCG, quant <5.0 0.0 - 5.0 IUnits/L Comment: Interpretive Data Male: < 5 IU/L Non- premenopausal Female: <5 IU/L The Yeni hCG Beta Quant assay procedure was used. Results from different manufacturers or methods may not be comparable. Serial testing should be performed using the same method. Interpretive Data was last revised on 2023 Blood 02/11/2025 2:28 AM CDT 02/11/2025 2:41 AM CDT Quincy Goyal MD LAB BLOOD ORDERABLES Final Resu lt Performing Organization Address City/State/[facility] Co de Phone Number CAROLE [address] [facility] Department [place] [address] * (ABNORMAL) Basic metabolic panel (02/11/2025 2:28 AM CDT) Sodium 131(L) 135 - 145 mmol/L Potassium, pl 3.9 3.3 - 4.9 mmol/L [facility] Comment:Hemolyzed; Potassium value may be falsely elevated by as much as 1.0 mmol/L. Suggest redraw and reanalysis. Chloride 97 97 - 110 mmol/L [facility] CO2 23 22 - 32 mmol/L [facility] Anion gap 11 2 - 15 mmol/L [facility] BUN 17 6 - 25 mg/dL [facility] Creatinine 0.75 0.60 - 1.10 mg/dL [facility] Glucose 103 70 - 199 mg/dL [facility] Comment: Interpretive Data Fasting glucose >/= 126 mg/dl is diagnostic for diabetes. Fasting is defined as no caloric intake for at least 8 hours. Fasting glucose between 100 mg/dl to 125 mg/dl is diagnostic of prediabetes. In a patient with classic symptoms of hyperglycemia or hyperglycemic crisis, a random glucose >/= 200 mg/dl is diagnostic for diabetes. In the absence of unequivocal hyperglycemia, results should be confirmed by repeat testing. The classification and Diagnosis of Diabetes Diabetes Care 202; 46: S19-S40. Current interpretive data was last revised 2022. Calcium 8.5 8.5 - 10.3 mg/dL [facility] Blood 02/11/2025 2:28 AM CDT 02/11/2025 2:41 AM CDT us Piter Steele MD LAB BLOOD ORDERABLES Final Result [facility] [address] [facility] Department [place] [address] from Last 3 Months Insurance [facility] [employer] [place] [address] [place] [address] [employer] [place] [facility] [address] [place] [address] BLUE ACCESS [facility] [address] [place] [address] Advance Directives For more information, please contact: [phone] * Full Code (Latest Code Status on File) Date Activated Date Inactivated Comments 02/11/2025 1:28 AM 02/19/2025 4:37 PM Care Teams Cuff Cutter Relationship Specialty Start Date End Date Saul Ruelas MD PCP - General Family Medicine 08/25/20 Abiodun Red MD [address] [place] [address] Referring Physician Neurology 11/27/22 Issac Amador MD [address] [place] [address] Consulting Physician Rheumatology 07/23/24"
--- OUTSIDE RECORDS SUMMARY | 2025-02-26 10:17 | XMS_ITS | Clinical Summary ---
Author Organization [facility] Address [address] [place] [address] Care Team Providers Care Family Service Worker Name Role Phone Unavailable Primary Care Provider Unavailabl e Source Comments [facility],non-owned Affiliates and Associated Physician Practices is amultiple site organization consisting of ambulatory clinics and hospital sitesin [place], [place], [place] and [place]. This disclosure is being madepursuant to the Care Everywhere program and may not contain all information available regarding this patient. Last updated 18.[facility] [employer] Social History Tobacco Use Types Packs/Day Years [...] age to complete this topic Insurance [address] [place] [id number] [facility] Address: [facility] [address] [place] [address] [place] [id number] [facility] ALL[facility] SELF PAY NO INSURANCE Member Subscriber Plan / Payer (Ef fective for All Dates) Name:Holly Black Member ID:Not on file Relation to Subscriber:Not on file Subscriber ID:Not on file Payer ID:Not on file Group ID:Not on file Type:Self Pay Address: [facility] [employer] SELF PAY NO INSURANCE Member Subscriber Plan / Payer (Ef fective for All Dates) Name:Holly Black Member ID:Not on file Relation to Subscriber:Not on file Subscriber ID:Not on file Payer ID:Not on file Group ID:Not on file Type:Self Pay Address: [facility] [employer] SELF PAY NO INSURANCE Member Subscriber Plan / Payer (Ef fective for All Dates) Name:Holly Black Member ID:Not on file Relation to Subscriber:Not on file Subscriber ID:Not on file Payer ID:Not on file Group ID:Not on file Type:Self Pay Address: [place], [place]
--- OUTSIDE RECORDS SUMMARY | 2025-02-26 10:17 | XMS_ITS | Encounter Summary ---
Author Organization [facility] Address [address] [place] [address] Care Team Providers Care Production Packager Name Role Phone Robert García MD Primary Care Provider + Encounter Details Date Type Department Care Team (Latest Contact Info) Description 01/01/2025 Affectiva Message Enc [facility] [place] [address] [id number] [facility], [facility] Provider Pain Management Referral Social History Tobacco [...] on file Legal Sex Female 9:56 AM LAST SAWYER Gender Identity Not on file Sexual Orientation Not on file documented as of this encounter Plan of Treatment Upcoming Encounters Date Type Department Care Team (Late st Contact Info) Description 05/27/2025 9:40 AM LAST SAWYER Office Visit [facility] Medical Group Multispecialty Care - [facility] [address] [facility], [address] [place] [phone] Abiodun Red MD 3 [facility] [address] 07/02/2025 2:00 PM LAST SAWYER Office Visit [facility] Medical Group Multispecialty Care - [facility] [address] [facility], [address] [place] [phone] Marine Glover APRN 3 [facility] [address] [place] [address] documented as of this encounter Visit Diagnoses Not on filedocumented in this encounter Additional Health Concerns Assessment Noted Time PHQ-9 Depression Total Score: 7 06/02/20 22 9:57 AM LAST SAWYER documented as of this encounter Care Teams Production Packager Relationship Specialty Start Date End Date Robert García MD 3 [facility] [address] [place] [phone] PCP - General 08/17/23 documented as of this encounter
--- OUTSIDE RECORDS SUMMARY | 2025-02-26 10:17 | XMS_ITS | Encounter Summary ---
Author Organization [facility] Address [address] [place] [address] Care Team Providers Care Lowerator Operator Name Role Phone Unavailable Primary Care Provider Unavailabl e Encounter Details Date Type Department Care Team (Late st Contact Info) Description 03/02/2022 Lab Requisition [facility] [address] [place] [address] Niles George MD [address] [place] [address] Social History Tobacco Use Types Packs/Day Years [...] AM CDT) Case Report Dermatopathology Report Case: [id number] Authorizing Provider: Niles George MD Collected: 03/02/2022 12:00 AM Ordering Location: [facility] Received: 03/02/2022 05:15 PM Pathologist: [...] by the Dermatopathology Laboratory at [facility], directed by Dr. Miguel Viramontes. These tests need not be, and therefore are not, approved by the [place] Food and Drug Administration. The tests are used for clinical purposes. Billing Codes Specimen Charges Stain Charges 66938 1 2 6:16 PM CDT DERMATOPATHOLOGY LABORATORY Embedded Images 2 6:16 PM CDT DERMATOPATHOLOGY LABORATORY Pathology/Cytolog y TISSUE SPECIMEN FROM SKIN / Unknown 03/02/2022 03/02/2022 5:15 PM CDT Niels George MD LAB - PATHOLOGY/CYTOLOGY ORDERAB LES Final Result DERMATOPATHOLOGY LABORATORY [facility] - Department of Dermatology [address], [address] [phone] documented in this encounter Visit Diagnoses Not on filedocumented in this encounter
--- OUTSIDE RECORDS SUMMARY | 2025-02-26 10:18 | XMS_ITS | Encounter Summary ---
Author Organization [facility] Address [address] [place] [address] Care Team Providers Care Teaching Specialists Name Role Phone Robert García MD Primary Care Provider + Reason for Visit * Reason Comments Botox Procedure Chronic migraine * Treatment/Therapy Plan Authorization (Routine) - Authorized Specialty Diagnoses / Procedures Referred By Contac t Referred To Contact Diagnoses Chronic migraine without aura without status migrainosus, not intractable Procedures INJECTION, ONABOTULINUMTOXINA, 1 UNIT Abiodun Red MD [address] [place] [address] Phone: tel: fax: [facility] - [address], [address] [place] [address] Phone: tel: Referral ID Status Reason Start Date Expiration Date V isits Requested Visits Authorized [id number] Authorized 08/27/2024 08/27/2025 5 5 Encounter Details Date Type Department Care Team (Latest Contact Info) Description 02/25/2025 1:00 PM CDT Office Visit [address], [address] [place] [phone] Abiodun Red MD [address] [place] [address] Botox Procedure (Chronic migraine) Social History Tobacco Use Types Packs/Day Years [...] on file Legal Sex Female 9:56 AM HEADWAITER/HEADWAITRESS Gender Identity Not on file Sexual Orientation Not on file documented as of this encounter Last Filed Vital Signs Vital Sign Reading [...] Mass Index 37.31 02/25/2025 1:05 PM CDT documented in this encounter Plan of Treatment Upcoming Encounters Date Type Department Care Team (Late st Contact Info) Description 05/27/2025 9:40 AM HEADWAITER/HEADWAITRESS Office Visit [facility] Medical Group Multispecialty Care - [facility] [address] [facility], [address] [place] [address] Abiodun Red MD 3 [place] [address] 07/02/2025 2:00 PM HEADWAITER/HEADWAITRESS Office Visit [facility] Medical Group Multispecialty Care - [facility] [address] [facility], [address] [place] [address] Marine Glover APRN [address] [facility] [address] [place] [address] documented as of this encounter Visit Diagnoses Diagnosis Chronic migraine without aura without status migrainosus, not intractable- Primary Chronic migraine without aura, without mention of intractable migraine without mention of status migrainosus documented in this encounter Administered Medications Inactive Administered Medications - up to 3 most recent administrations Medication Order MAR Action Action Date Dose Rate Site botulinum toxin type A (BOTOX) injection 200 Units 200 Units, Intramuscular, Once, 1 dose, On Sun02/25/25 at 1330, * 200 unit vial *Indications:Chronic migraine without aura without status migrainosus, not intractable Given 02/25/2025 1:55 PM CDT 125 Units Other documented in this encounter Additional Health Concerns Assessment Noted Time PHQ-9 Depression Total Score: 7 06/02/20 22 9:57 AM HEADWAITER/HEADWAITRESS documented as of this encounter Care Teams Teaching Specialists Relationship Specialty Start Date End Date Robert García MD 3 [facility] [address] [place] [address] PCP - General 08/17/23 documented as of this encounter
--- OUTSIDE RECORDS SUMMARY | 2025-02-26 10:18 | XMS_ITS | Encounter Summary ---
Author Organization [facility] Address [address] [place] [address] Care Team Providers Care Pantograph Machine Operator Name Role Phone Robert García MD Primary Care Provider + Encounter Details Date Type Department Care Team (Latest Contact Info) Description 02/25/2025 Scan HEALTH INFO SRVCS Scanned, Doc Med Group Social History Tobacco Use Types Packs/Day Years [...] on file Legal Sex Female 9:56 AM BOLTING MACHINE OPERATOR Gender Identity Not on file Sexual Orientation Not on file documented as of this encounter Plan of Treatment Upcoming Encounters Date Type Department Care Team (Late st Contact Info) Description 05/27/2025 9:40 AM BOLTING MACHINE OPERATOR Office Visit [facility] Medical Group Multispecialty Care - [address], [address] [place] [address] Abiodun Red MD 3 [place] [address] 07/02/2025 2:00 PM BOLTING MACHINE OPERATOR Office Visit [facility] Medical Group Multispecialty Care - [facility] 3 [facility], [address] [place] [address] Marine Glover APRN 3 [facility] [address] [place] [address] documented as of this encounter Visit Diagnoses Not on filedocumented in this encounter Additional Health Concerns Assessment Noted Time PHQ-9 Depression Total Score: 7 06/02/20 22 9:57 AM BOLTING MACHINE OPERATOR documented as of this encounter Care Teams Pantograph Machine Operator Relationship Specialty Start Date End Date Robert García MD 3 [facility] [address] [place] [phone] PCP - General 08/17/23 documented as of this encounter
--- OUTSIDE RECORDS SUMMARY | 2025-02-26 10:18 | XMS_ITS | Encounter Summary ---
Author Organization [facility] Address [address] [place] [address] Care Team Providers Care Extension Clerk Name Role Phone Robert García MD Primary Care Provider + Encounter Details Date Type Department Care Team (Latest Contact Info) Description 02/25/2025 Travel Social History Tobacco Use Types Packs/Day Years [...] on file Legal Sex Female 9:56 AM DAMAGE APPRAISER Gender Identity Not on file Sexual Orientation Not on file documented as of this encounter Plan of Treatment Upcoming Encounters Date Type Department Care Team (Late st Contact Info) Description 05/27/2025 9:40 AM DAMAGE APPRAISER Office Visit [facility] Medical Group Multispecialty Care - [facility] [address] [facility], [address] [place] [address] Abiodun Red MD 3 [place] [address] 07/02/2025 2:00 PM DAMAGE APPRAISER Office Visit [facility] Medical Group Multispecialty Care - [facility] [address] [facility], [address] [place] [address] Marine Glover APRN 3 [facility] [address] [place] [address] documented as of this encounter Visit Diagnoses Not on filedocumented in this encounter Additional Health Concerns Assessment Noted Time PHQ-9 Depression Total Score: 7 06/02/20 22 9:57 AM DAMAGE APPRAISER documented as of this encounter Care Teams Extension Clerk Relationship Specialty Start Date End Date Robert García MD 3 [facility] [address] [place] [address] PCP - General 08/17/23 documented as of this encounter
[2025-02-26 11:08] LABS: Alanine Aminotransferase 28 U/L (6-35); Albumin Level 3.3 g/dL (3.5-5.1); Alkaline Phosphatase 110 U/L (38-126); Anion Gap 4 mmol/L (4-12); Aspartate Amino Transferase 43 U/L (14-36); Bilirubin,Total 0.3 mg/dL (0.2-1.3); Blood Urea Nitrogen 9 mg/dL (7-17); Calcium 9.4 mg/dL (8.4-10.2); Carbon Dioxide 29 mmol/L (22-30); Chloride 102 mmol/L (98-107); Cholesterol 185 mg/dL (0-200); Estimated Glomerular Filt Rate > 60; Glucose 79 mg/dL (65-110); HDL Direct 42 mg/dL; Potassium 4.3 mmol/L (3.4-5.0); Sodium 135 mmol/L (137-145); Total Protein 6.0 g/dL (6.3-8.2); Triglycerides 173 mg/dL (<150)
[2025-02-26 11:31] LABS: Thyroid Stimulating Hormone Reflex 2.630 uIU/mL (0.465-4.68)
== END 2025-02-26 10:01 | disposition home or self-care (01) ==
LOC: ANHLAB 10:02
PROVIDERS: Visit Provider Internal Medicine Cardiovascular Disease
DX: E78.5 Hyperlipidemia, unspecified (principal)
CPT/HCPCS: 36415; 80053; 80061; 84443

== ENCOUNTER 2025-04-04 13:59 | Emergency (ER) | payer BC, OTHER, SELFPAY ==
--- OUTSIDE RECORDS SUMMARY | 2023-04-19 04:00 | XMS_ITS | Continuity of Care Document ---
Author Organization [facility] Address [address] [place] [address] Phone Care Team Providers Care Sdet Name Role Phone Miguel Harrison PT Unavailable Unavailable Procedures Procedure Date Therapeutic Activities Neuromuscular Re-Ed Therapeutic Exercise Therapeutic Activities Neuromuscular Re-Ed Therapeutic Exercise Therapeutic Activities Neuromuscular Re-Ed Therapeutic Exercise Therapeutic Activities Neuromuscular Re-Ed Therapeutic Exercise Therapeutic Activities Neuromuscular Re-Ed Therapeutic Exercise Manual Therapy PT Evaluation Moderate Complexity Therapeutic Activities Neuromuscular Re-Ed Therapeutic Exercise Advance Directives Directive Yes / No Effective Date File Name No Information Encounters Encounter Description Practice Location Reason(s) For Visit Diagnoses Date Provider Providers Copied on Encounter [facility], [address], [place], [place], [id number], tel:[phone] [facility] No Information Hunter Rivera. . Referring Provider: Eddie Caceres, [address], [address]. tel:[phone] [facility], [address] [place] [address] [address], [place], [id number], tel:[phone] [place] No Information Hunter Abrahamyn. . Referring Provider: Eddie Caceres, [address], [address]. tel:[phone] [facility] [address] [place] [address], [id number], tel:[phone] [place] No Information Hunter Abrahamyn. . Referring Provider: Eddie Caceres, [address] [place] [address], [id number]. tel:[phone] [facility] [address] [place] [address], [id number], tel:[phone] [place] No Information Hunter Abrahamyn. . Referring Provider: Eddie Caceres, [address], [address]. tel:[phone] [facility] [address] [place] [address], [id number], tel:[phone] [place] No Information Hunter Abrahamyn. . Referring Provider: Eddie Caceres, [address], [address]. tel:[phone] [facility] [address] [place] [address], [id number], tel:[phone] [place] No Information Hunter Abrahamyn. . Referring Provider: Eddie Caceres, [address], [address]. tel:[phone] Family History Family Member Type Diagnosis Age At Onset No Information Payers Payer name Insurance type Covered democrat ID Shilo andrade(s) No Information Social History Type Description Quantity Date Captured Comments Sex Female Smoking Status No Information Chief Complaint And Reason For Visit No Information Reason For Referral Reason For Referral No Information History Of Present Illness Encounter Date Complaint History Of Prese nt Illness No Information Functional Status Date Functional Assessmen t No Information Instructions Date Instruction Additional Infor mation Prescribed activity/exercise edu cation Related to Overweight Dietary needs education Related to Overweight Assessments Type Assessment Date No Information Patient Care Teams Name Effective Dates (start - stop) Status Members No Information
--- OUTSIDE RECORDS SUMMARY | 2023-04-19 04:00 | XMS_ITS | Continuity of Care Document ---
Author Organization [facility] Address [address] [place] [address] Phone Care Team Providers Care Director Financial Planning Name Role Phone Miguel Harrison PT Unavailable [...] Diagnoses Date Provider Providers Copied on Encounter [facility], [address], [place], [place], [id number], tel:[phone] [facility] No Information Hunter Rivera. . Referring Provider: Eddie Caceres, [address], [address]. tel:[phone] [facility], [address] [place] [address], [place], [id number], tel:[phone] [place] No Information Hunter Abrahamyn. . Referring Provider: Eddie Caceres, [address], [address]. tel:[phone] [facility] [address] [place] [address], [id number], tel:[phone] [place] No Information Hunter Abrahamyn. . Referring Provider: Eddie Caceres, [address] [place] [address], [address]. tel:[phone] [facility] [address] [place] [address], [id number], tel:[phone] [place] No Information Hunter Abrahamyn. . Referring Provider: Eddie Caceres, [address], [address]. tel:[phone] [facility] [address] [place] [address], [id number], tel:[phone] [place] No Information Hunter Abrahamyn. . Referring Provider: Eddie Caceres, [address], [address]. tel:[phone] [facility] [address] [place] [address], [id number], tel:[phone] [place] No Information Hunter Abrahamyn. . Referring Provider: Eddie Caceres, [address], [address]. tel:[phone] Family History Family Member Type Diagnosis Age At Onset No Information Payers Payer name Insurance type Covered constitution party ID Shilo andrade(s) No Information Social History [...]
--- OUTSIDE RECORDS SUMMARY | 2025-01-22 07:30 | XMS_ITS ---
Author Organization [facility] Address [address] [place], [place] [id number] Care Team Providers Care Valet Name Role Phone KENYON FORREST Unavailable [phone] Darci Woody Unavailable Unavailable Allergies Allergen (clinical drug ingredient) Drug/Non Drug Allergy documented on EMR Reaction Allergy Type Onset Date Status lorazepam Lorazepam other Drug Allergy Active oxycodone Oxycodone other Drug Allergy Active zolpidem Zolpidem other Drug Allergy Active REASON FOR VISIT *Fracture check with xrays Medications Medication SIG (Take, Route, Frequency, Duration) Notes Start Date End Date Status Levothyroxine Sodium 137 MCG Oral; Duration: 90 Days Active Meloxicam 7.5 MG Oral; Duration: 30 Days Active Atorvastatin Calcium 80 MG Oral; Duration: 90 Days Active Aimovig 70 MG/ML ADMINISTER 1 ML UNDE R THE SKIN EVERY 30 DAYS Subcutaneous; Duration: 30 Days Active Atorvastatin Calcium 80 MG TAKE 1 TABLET BY MOUTH EVERY DAY Oral; Duration: 90 Days Active Vital Signs Height 70.00 in 01/22/2025 Weight 250 lbs 01/22/2025 BMI 35.87 kg/m2 01/22/2025 Height-cm 177.80 cm 01/22/2025 Weight-kg 113.4 kg 01/22/2025 Encounters Encounter Location Date Provider Diagnosis [facility] [address] [place], [place] [id number] 01/22/2025 KENYON FORREST Tendinitis of right foot M77.51 ; Nondisplaced fracture of fifth metatarsal bone, left foot, subsequent encounter for fracture with routine healing S92.355D ; Pain in right foot M79.671 and Left foot pain M79.672 Assessments Encounter Date Diagnosis (ICD Code) Assessment Notes Treatment Notes Treatment Clinical Notes Section Notes 01/22/2025 Tendinitis of right foot (ICD-10 - M77.51) 01/22/2025 Nondisplaced fracture of fifth metatarsal bone, left foot, subsequent encounter for fracture with routine healing (ICD-10 - S92.355D) 01/22/2025 Pain in right foot (ICD-10 - M79.671) 01/22/2025 Left foot pain (ICD-10 - M79.672) 01/22/2025 Other Continue cam walker. Plan Of Treatment Treatment Notes Assessment Notes Other Continue cam walker. Next Appt Details Provider Name:KENYON SPIVEY, 04/16/2025 10:40:00 AM, [address], [facility], [place], [place], [id number], Progress Notes * ANGELICA BLACK LDOB: 0 (44 yo F)Acc No.[id number]:01/22/2025 Patient: Michael ANGELICA VIDALES Provider: Kan Forrest DPM :1980 A ge:44 Y S ex:Female Date:01/22/2025 Address:[address] [facility] Subjective: * Chief Complaints: * 1 . *Fracture check with xrays. * HPI: H PI: [facility] a fracture of her left 5th metatarsal. Patient states their problem is improving. She states she is not having stabbing pain anymore. She is hoping to get out of the boot. She complains of pain from her bunion that is bothering her more than the fracture. M A: sea. * Medical History: A nxiety, High [...] , :: Sleep apnea,,known absent . S ingrid: SIB - Sister: :: Blood disorder,,known absent [...] be normal bilaterally . Pain on palpation b ase of the left 5th metatarsal . Gait T here is normal gait noted . N eurologic: Muscle power: 5 /5 bilaterally . Gross sensation G ross sensation is intact to light touch. . V ascular: Dorsalis pedis pulse: 2 /4 bilateral . Posterior tibial pulse: 2 /4 bilaterally . Capillary refill: l ess than 3 seconds bilaterally . Temperature gradient: w ithin normal limits . ? X -Ray: LEFT FOOT T hree views of the foot were obtained: Fracture noted at the 5th metatarsal base. The fracture is non-displaced X-rays show signs of healing. . Assessment: * Assessment: 1. N ondisplaced fracture of fifth metatarsal bone, left foot, subsequent encounter for fracture with routine healing - S92.355D (Primary) 2 . T endinitis of right foot - M77.51 3 . P ain in right foot - M79.671 4 . L eft foot pain - M79.672 Plan: * Treatment: * Procedure Codes: 7 3630 X-RAY EXAM OF FOOT, Modifiers: LT * Billing Information: * Visit Code: 31560 Office Visit, Est Pt., Level 3. * Procedure Codes: 05817 X-RAY EXAM OF FOOT. Modifiers: LT * Electronic signature of KENYON FORREST DPM on 04/04/2025 at 02:03 PM CDT Sign off status: Pending * Provider: Kan Forrest DPM Date: 01/22/2025 Generated for Dalia grace/Valeri/Mary on: 04/04/2025 02:03 PM CDT History and Physical Notes * HPI (History of Present Illness) Category Sub-Category Detail Notes Category Not es HPI Follow Up Visit Patient presents for follow-up visit for a fracture of her left 5th metatarsal. Patient states their problem is improving. She states she is not having stabbing pain anymore. She is hoping to get out of the boot. She complains of pain from her bunion that is bothering her more than the fracture. MA: sea Examination Category Sub-Category Detail Notes Category Not es X-Ray LEFT FOOT Three views of t he foot were obtained: Fracture noted at the 5th metatarsal base. The fracture is non-displaced X-rays show signs of healing. Constitutional Constitutional The patient is a wake, [...] in bilateral lower extremities. Pain on palpation base of the left 5th metatarsal Foot Structure The foot structure i s [...]
--- OUTSIDE RECORDS SUMMARY | 2025-02-05 07:30 | XMS_ITS ---
Author Organization [facility] Address [address] [place], [place] [id number] Care Team Providers Care Media Relations Director Name Role Phone KENYON FORREST Unavailable [phone] Darci Woody Unavailable Unavailable Allergies Allergen (clinical drug ingredient) Drug/Non Drug Allergy documented on EMR Reaction Allergy Type Onset Date Status lorazepam Lorazepam other Drug Allergy Active oxycodone Oxycodone other Drug Allergy Active zolpidem Zolpidem other Drug Allergy Active REASON FOR VISIT *Fracture check w/xrays Medications Medication SIG (Take, Route, Frequency, Duration) Notes Start Date End Date Status Aimovig 70 MG/ML ADMINISTER 1 ML UNDE R THE SKIN EVERY 30 DAYS Subcutaneous; Duration: 30 Days Active Levothyroxine Sodium 137 MCG Oral; Duration: 90 Days Active Atorvastatin Calcium 80 MG Oral; Duration: 90 Days Active Meloxicam 7.5 MG Oral; Duration: 30 Days Active Atorvastatin Calcium 80 MG TAKE 1 TABLET BY MOUTH EVERY DAY Oral; Duration: 90 Days Active Vital Signs Height 70.00 in 02/05/2025 Weight 250 lbs 02/05/2025 BMI 35.87 kg/m2 02/05/2025 Height-cm 177.80 cm 02/05/2025 Weight-kg 113.4 kg 02/05/2025 Encounters Encounter Location Date Provider Diagnosis [facility] [address] [place], [place] [id number] 02/05/2025 KENYON FORREST Tendinitis of right foot M77.51 ; Nondisplaced fracture of fifth metatarsal bone, left foot, subsequent encounter for fracture with routine healing S92.355D ; Pain in right foot M79.671 and Left foot pain M79.672 Assessments Encounter Date Diagnosis (ICD Code) Assessment Notes Treatment Notes Treatment Clinical Notes Section Notes 02/05/2025 Tendinitis of right foot (ICD-10 - M77.51) 02/05/2025 Nondisplaced fracture of fifth metatarsal bone, left foot, subsequent encounter for fracture with routine healing (ICD-10 - S92.355D) 02/05/2025 Pain in right foot (ICD-10 - M79.671) 02/05/2025 Left foot pain (ICD-10 - M79.672) 02/05/2025 Other Continue cam walker. Plan Of Treatment Treatment Notes Assessment Notes Other Continue cam walker. Next Appt Details Provider Name:KENYON SPIVEY, 04/16/2025 10:40:00 AM, [address], [facility], [place], [place], [id number], Progress Notes * ANGELICA BLACK LDOB: 0 (44 yo F)Acc No.[id number]:02/05/2025 Patient: Michael ANGELICA VIDALES Estefany Provider: Kan Forrest DPM :1980 A ge:44 Y S ex:Female Date:02/05/2025 Address:[address] , [facility] Subjective: * Chief Complaints: * 1 . *Fracture check w/xrays. * HPI: H PI: [facility] for follow[facility]up visit for a fracture of her left 5th metatarsal. She states she doesn't think it is healed yet. She states she is still having pain and pressure when she walks. MA: sea. * Medical History: A nxiety, [...] M79.672 Plan: * Treatment: * Procedure Codes: L 4361 WALKING BOOT PNEUMATIC AND/OR VAC, Modifiers: [place], [address] X-RAY EXAM OF FOOT, Modifiers: LT * Billing Information: * Visit Code: 83811 Office Visit, Est Pt., Level 3. * Procedure Codes: L4361 WALKING BOOT PNEUMATIC AND/OR VAC. Modifiers: [place] [address] X-RAY EXAM OF FOOT. Modifiers: LT * Electronic signature of KENYON FORREST DPM on 04/04/2025 at 02:02 PM CDT Sign off status: Pending * Provider: Kan Forrest DPM Date: 02/05/2025 Generated for Dalia grace/Valeri/Mary on: 04/04/2025 02:02 PM CDT History and Physical Notes * HPI (History of Present Illness) Category Sub-Category Detail Notes Category Not es HPI Follow Up Visit Patient presents for follow-up visit for a fracture of her left 5th metatarsal. She states she doesn't think it is healed yet. She states she is still having pain and pressure when she walks. MA: sea Examination Category Sub-Category Detail Notes [...]
--- OUTSIDE RECORDS SUMMARY | 2025-02-26 04:10 | XMS_ITS ---
Author Organization [facility] Address [address] [place], [place] [id number] Care Team Providers Care Information Operator Name Role Phone STEVEN KENYON Unavailable [phone] Darci Woody Unavailable Unavailable Allergies Allergen (clinical drug ingredient) Drug/Non Drug Allergy documented on EMR Reaction Allergy Type Onset Date Status lorazepam Lorazepam other Drug Allergy Active oxycodone Oxycodone other Drug Allergy Active zolpidem Zolpidem other Drug Allergy Active REASON FOR VISIT Fracture check w/xrays Medications Medication SIG (Take, Route, Frequency, Duration) Notes Start Date End Date Status Meloxicam 7.5 MG Oral; Duration: 30 Days Active Atorvastatin Calcium 80 MG TAKE 1 TABLET BY MOUTH EVERY DAY Oral; Duration: 90 Days Active Atorvastatin Calcium 80 MG Oral; Duration: 90 Days Active Aimovig 70 MG/ML ADMINISTER 1 ML UNDE R THE SKIN EVERY 30 DAYS Subcutaneous; Duration: 30 Days Active Levothyroxine Sodium 137 MCG Oral; Duration: 90 Days Active Vital Signs Height 70.00 in 02/26/2025 Height-cm 177.80 cm 02/26/2025 Encounters Encounter Location Date Provider Diagnosis [facility] [address] [place], [place] [id number] 02/26/2025 KENYON FORREST Nondisplaced fracture of fifth [...] Of Treatment Next Appt Details Provider Name:KENYON KIM PATRIC, 04/16/2025 10:40:00 AM, [address], [facility], [place], [place], [id number], Progress Notes * SOFIAANGELICA LDOB: 0 (44 yo F)Acc No.[id number]:02/26/2025 Patient: ANGELICA ADKINS Provider: Kan Forrest DPM :1980 A ge:44 Y S ex:Female Date:02/26/2025 [facility]:[address] [id number] Subjective: * Chief Complaints: * 1 . Fracture check w/xrays. * HPI: H PI: Follow Up Visit P atient presents for follow up visit for fracture check on th eleft foot. Patient states it is much better and only hurts sometimes. , MA: KATHY. * Medical History: A nxiety, High blood [...] Oxycodone: other, Lorazepam: other. Objective: * Vitals: H t: 70.00 in, Ht-cm: 177.80 cm. Assessment: * Assessment: 1. N ondisplaced fracture of fifth metatarsal bone, left foot, subsequent encounter for fracture with routine healing - S92.355D (Primary) 2 . L eft foot pain - M79.672 ? Plan: * Treatment: * Immunizations: Immunization record has been reviewed and updated. * Procedure Codes: 7 3630 X-RAY EXAM OF FOOT, Modifiers: LT * Billing Information: * Visit Code: 67002 Office Visit, Est Pt., Level 3. * Procedure Codes: 96285 X-RAY EXAM OF FOOT. Modifiers: LT * Electronic signature of KENYON FORREST DPM on 04/04/2025 at 02:02 PM CDT Sign off status: Pending * Provider: Kan Forrest DPM Date: 02/26/2025 Generated for Dalia grace/Valeri/Ashwiniitting on: 04/04/2025 02:02 PM CDT History and Physical Notes * HPI (History of Present Illness) Category Sub-Category Detail Notes Category Not es HPI Follow Up Visit Patient presents for follow up visit for fracture check on foot. Patient states it is much better and only hurts sometimes. , MA: KATHY
--- OUTSIDE RECORDS SUMMARY | 2025-03-19 04:10 | XMS_ITS ---
Author Organization [facility] Address [address] [place], [place] [id number] Care Team Providers Care Beautician Apprentice Name Role Phone KENYON FORREST Unavailable [phone] Darci Woody Unavailable Unavailable Allergies Allergen (clinical drug ingredient) Drug/Non Drug Allergy documented on EMR Reaction Allergy Type Onset Date Status lorazepam Lorazepam other Drug Allergy Active oxycodone Oxycodone other Drug Allergy Active zolpidem Zolpidem other Drug Allergy Active REASON FOR VISIT fracture check with xrays Medications Medication SIG (Take, Route, Frequency, Duration) Notes Start Date End Date Status Clotrimazole-Betamethasone 1-0.05 % 1 application Externally Twice a day; Duration: 2 weeks 03/19/2025 03/21/2025 Active Atorvastatin Calcium 80 MG TAKE 1 TABLET BY MOUTH EVERY DAY Oral; Duration: 90 Days Active Meloxicam 7.5 MG Oral; Duration: 30 Days Active Atorvastatin Calcium 80 MG Oral; Duration: 90 Days Active Aimovig 70 MG/ML ADMINISTER 1 ML UNDE R THE SKIN EVERY 30 DAYS Subcutaneous; Duration: 30 Days Active Levothyroxine Sodium 137 MCG Oral; Duration: 90 Days Acti ve Vital Signs Height 70.00 in 03/19/2025 Height-cm 177.80 cm 03/19/2025 Encounters Encounter Location Date Provider Diagnosis [facility] [place] [address] [place], [place] [id number] 03/19/2025 KENYON FORREST Left foot pain M79.672 [...] Date Stop Date Notes Clotrimazole-Betamethasone 1-0.05 % 1 application Externally Twice a day; Duration: 2 weeks 03/19/2025 03/21/2025 Treatment Notes Assessment Notes Other Continue cam walker. Due to it not being healed after 3 months we will precert bone stim Next Appt Details Provider Name:KENYON SPIVEY, 04/16/2025 10:40:00 AM, [address], [facility], [place], [place], [id number], Progress Notes * ANGELICA BLACK LDOB: 0 (44 yo F)Acc No.[id number]:03/19/2025 Patient: Michael HERNÁNDEZANGELICA LABOY Estefany Provider: Kan Forrest DPM :1980 A ge:44 Y S ex:Female Date:03/19/2025 Address:[address] [place] [address] , [id number] Subjective: * Chief Complaints: * 1 . Fracture check with xrays. * HPI: H PI: Follow Up Visit P atient presents for follow up visit for a fracture in the left foot. Patient states she still has pain. Patient states she also has peeling skin on bilateral feet that she is curious about. , MA: KATHY. * Medical History: A [...] RT * Billing Information: * Visit Code: 92026 Office Visit, Est Pt., Level 3. * Procedure Codes: 51206 X-RAY EXAM OF FOOT. Modifiers: RT * Electronic signature of KENYON FORREST DPM on 04/04/2025 at 02:03 PM CDT Sign off status: Pending * Provider: Kan Forrest DPM Date: 03/19/2025 Generated for Dalia Meneses/Mary on: 04/04/2025 02:03 PM CDT History and Physical Notes * HPI (History of Present Illness) Category Sub-Category Detail Notes Category Not es HPI Follow Up Visit Patient presents for follow up visit for a fracture in the left foot. Patient states she still has pain. Patient states she also has peeling skin on bilateral feet that she is curious about. , MA: KATHY Examination Category Sub-Category Detail Notes Category Not [...]
--- OUTSIDE RECORDS SUMMARY | 2025-04-02 06:10 | XMS_ITS ---
Author Organization [facility] Address [address] [place], [place] [id number] Care Team Providers Care Anaesthetic Technician Name Role Phone KENYON FORREST Unavailable [phone] Darci Woody Unavailable Unavailable Allergies Allergen (clinical [...] 90 Days Active Levothyroxine Sodium 137 MCG Oral; Duration: 90 Days Active Meloxicam 7.5 MG Oral; Duration: 30 Days Active Atorvastatin Calcium 80 MG Oral; Duration: 90 Days Active Vital Signs Height 70.00 in 04/02/2025 Height-cm 177.80 cm 04/02/2025 Encounters Encounter Location Date Provider Diagnosis [facility] [place] [address] [place], [place] [id number] 04/02/2025 KENYON FORREST Left foot pain M79.672 [...] SPIVEY, 04/16/2025 10:40:00 AM, [address], [address], [id number], Progress Notes * ANGELICA BLACK LDOB: 0 (44 yo F)Acc No.[id number]:04/02/2025 Patient: ANGELICA ADKINS Provider: Kan Forrest DPM :1980 A ge:44 Y S ex:Female Date:04/02/2025 Address:[address] [place] [address] , [facility] Subjective: * Chief Complaints: * 1 . Fracture check with xrays. * HPI: H PI: Follow Up Visit P atient presents for follow up visit for a fracture on the left foot. Patient states it still hurts and she is icing it and hs used the bone simulator for 5 days. , MA: KATHY. * Medical History: A [...] record has been reviewed and updated. * Billing Information: * Visit Code: * Procedure Codes: * Electronic signature of KENYON BRIDGETT FORREST on 04/04/2025 at 02:02 PM CDT Sign off status: Pending * Provider: Kan Forrest DPM Date: 04/02/2025 Generated for Dalia grace/Valeri/Ashwiniitting on: 04/04/2025 02:02 [...]
--- NOTE | 2025-04-04 14:01 | ED.FEMALEGU ---
HPI - Female Genitourinary General Chief complaint: Urogenital-Female Stated complaint: UTI Time Seen by Provider: 04/04/25 14:00 Source: patient Mode of arrival: ambulatory Limitations: no limitations History of Present Illness HPI Narrative: Holly is a 44-year-old female patient presenting to the clinic today with complaints of a possible UTI. She reports seen PCP 2 weeks ago for UTI symptoms. Was placed on antibiotics and had urine culture performed. Urine culture had no growth- patient finished Keflex antibiotics and her symptoms improved some. On Sunday started having cloudy urine, burning with urination, lower abdomen discomfort, and bloody/ cream colored vaginal discharge. Also reports some intermittent back pain. No known fevers or chills. No nausea, vomiting, or diarrhea. No concern for STIs. Patient is happily in a monogamous relationship. Has not changed any soaps or shampoos and her genital area. Had taken Azo on Sunday. LMP is unknown- spots irregularly. Related Data Home Medications ?Medication ?Instructions ?Recorded ?Confirmed ?Last Taken ?Type aspirin 81 mg tablet,delayed 81 mg PO DAILY 11/21/22 03/25/25 10/21/24 History release (Adult Aspirin Regimen) buspirone 15 mg tablet 15 mg PO DAILY 11/21/22 03/25/25 10/23/24 History fexofenadine 180 mg tablet 180 mg PO DAILY 11/21/22 03/25/25 10/22/24 History (Robyn Allergy) levothyroxine 137 mcg tablet 137 mcg PO DAILY 11/21/22 03/25/25 10/23/24 History (Synthroid) mometasone 50 mcg/actuation nasal 2 spray intranasal DAILY PRN 11/21/22 03/25/25 10/22/24 History spray Shortness Of Breath Or Wheezing mv-mn-folic 200 mcg-vit K 15 1 cap PO BID 11/21/22 03/25/25 10/20/24 History mcg-lutein 5 mg-zeaxanthin 1 mg capsule (PreserVision AREDS 2 Plus Multivit) omeprazole 20 mg capsule,delayed 20 mg PO DAILY 11/21/22 03/25/25 10/22/24 History release pilocarpine HCl 5 mg tablet 5 mg PO TID 11/21/22 03/25/25 10/22/24 History sumatriptan succinate 100 mg tablet See Rx Instructions PO .COMPLEX 11/21/22 03/25/25 Unknown History topiramate 50 mg tablet (Topamax) 50 mg PO TID 11/21/22 03/25/25 10/22/24 History atogepant 60 mg tablet (Qulipta) 60 mg PO DAILY 06/13/24 03/25/25 10/22/24 History cyclobenzaprine 10 mg tablet 10 mg PO TID 06/13/24 03/25/25 10/22/24 History erenumab-aooe 70 mg/mL 70 mg subcut DIRECTED 06/13/24 03/25/25 Unknown History subcutaneous auto-injector (Aimovig Autoinjector) trazodone 100 mg tablet 100 mg PO DIRECTED PRN insomnia 06/13/24 03/25/25 Unknown History lidocaine 1.8 % topical patch 1 patch topical DAILY 06/26/24 03/25/25 Unknown History omega 8-vgv-rpw-fish oil 60 mg-90 1 cap PO DAILY 06/26/24 03/25/25 10/20/24 History mg-500 mg capsule (Fish Oil) eszopiclone 3 mg tablet (Lunesta) 3 mg PO QHS 02/26/25 03/25/25 Unknown History pregabalin 150 mg capsule (Lyrica) 150 mg PO TID 02/26/25 03/25/25 Unknown History sertraline 25 mg tablet 25 mg PO DAILY 02/26/25 03/25/25 Unknown History tirzepatide (weight loss) 2.5 2.5 mg subcut WEEKLY 03/25/25 03/25/25 Unknown History mg/0.5 mL subcutaneous pen injector (Zepbound) Allergies Allergy/AdvReac Type Severity Reaction Status Date / Time No Known Allergies Allergy Verified 04/04/25 14:19 Review of Systems Review of Systems: Pertinent positives per HPI. Patient denies any fever, chills, rash, headache, visual changes, dizziness, cough, runny nose, sore throat, shortness of breath, chest pain, palpitations, nausea, vomiting, diarrhea, constipation, abdominal pain, or any urinary issues. [facility] Past Medical History Medical History Pleural effusion Thyroid disorder Stroke Migraine Anxiety Allergies Insomnia Chronic pain Fibromyalgia Radial head fracture, closed Distal radius fracture, right Thompson's neuroma of right foot (~2016) Abdominal hernia (~2011) Previous gastric bypass complicating , antepartum (~2007) Surgical History Surgical History H/O hernia repair (~2011) History of gastric bypass (~2008) Hx of cholecystectomy (~2009) History of (~2007) Family History Family History Mother Thyroid disorder Hypertension Father Depression Anxiety Diabetes mellitus Hypertension Sibling Depression Anxiety Thyroid disorder Grandparent Heart disease Hypertension Depression Anxiety Social History Social History Smoking status: Never smoker Alcohol intake: never Substance use: never Substance use type: does not use Do You Feel Safe in your Home?: Yes Lack of Transportation: No Lack of Food: Never True Current Housing: I Have Housing Concerned About Future Housing: No Difficulty Paying Gas/Electric Bills: No Difficulty Paying for Meds: No Currently Unemployed: No Education: Associate Degree Difficulty w/ Childcare or Family Care: No Living arrangements: with family Occupation/Education: occupation 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 There is no relevant family history pertinent to the patient complaint. Exam Narrative: General: Well-developed, well nourished, in no apparent distress. Head: Normocephalic, atraumatic. Cardio: Regular rate and rhythm, s1 and s2 normal, no murmur appreciated. Resp: Clear to auscultation bilaterally, no rhonchi, rales, wheezing or rubs. Abdomen: Soft, pliable, bowel sounds present in all quadrants, non-tender to palpation, no organomegly, no CVAT tenderness. Course Course Emergency Course: Portions of this record may have been created with voice recognition software. Level of Care: Express Care Visit Vital Signs Vital signs: Vital Signs Temperature 36.4 C L 04/04/25 14:13 Pulse Rate 101 H 04/04/25 14:13 Respiratory Rate 18 04/04/25 14:13 Blood Pressure 114/87 04/04/25 14:13 Pulse Oximetry 100 04/04/25 14:13 Oxygen Delivery Room Air 04/04/25 14:13 Temperature 36.4 C L 04/04/25 14:13 Pulse Rate 101 H 04/04/25 14:13 Respiratory Rate 18 04/04/25 14:13 Blood Pressure 114/87 04/04/25 14:13 Pulse Oximetry 100 04/04/25 14:13 Oxygen Delivery Room Air 04/04/25 14:13 Vital signs reviewed MDM - Female Genitourinary MDM Narrative Medical decision making narrative: At the time of visit patient is resting comfortably on the exam table. Patient appears to be nontoxic. Complaints of a possible UTI. She reports seen PCP 2 weeks ago for UTI symptoms. Was placed on antibiotics and had urine culture performed. Urine culture had no growth- patient finished cephalexin antibiotics and her symptoms improved some. On Sunday started having cloudy urine, burning with urination, lower abdomen discomfort, and bloody/ cream colored vaginal discharge. Also reports some intermittent back pain. No known fevers or chills. No nausea, vomiting, or diarrhea. No concern for STIs. Patient is happily in a monogamous relationship. Has not changed any soaps or shampoos and her genital area. Had taken Azo on Sunday. LMP is unknown- spots irregularly. On exam patient has mild tenderness to palpation over the bilateral lower abdomen, no CVAT tenderness, bowel sounds present all 4 quadrants, bowel sounds are active, lung sounds are clear, and heart rates regular rate and rhythm. Urine dip ordered. Patient is agreeable to STI testing. Bacteria vaginosis, genital culture, chlamydia, gonorrhea, Trichomonas was sent to the lab. Labs: Urine dip negative for any sign of infection or blood. We will send urine for culture. Plan: I suspect patient has vaginal discharge with dysuria. Patient possibly have BV infection but has recently had antibiotics so will cover for yeast infection as well. Prescription for metronidazole and Diflucan was sent to the pharmacy. Will wait STI testing for further treatment and appropriate. Discussed different OBGYN providers for patient to follow-up with she is new to the area. Supportive measures were discussed with the patient and they voiced understanding discharge instructions and agrees to treatment plan. Return precautions reviewed Differential Diagnosis Differential diagnosis: Likely urinary tract infection, bacterial vaginosis, trichomoniasis, cervicitis, ovarian cyst, vaginitis, cystitis and dysmenorrhea Lab Data Labs: Lab Results 04/04/25 Range/Units 14:36 POC Urine Color Yellow POC Urine Clarity Clear POC Urine pH 7.0 POC Ur Specif [place] 1.015 POC Urine Protein Negative (Negative) POC Ur Glucose (UA) Negative (Negative) POC Urine Ketones Negative (Negative) POC Urine Blood Negative (Negative) POC Urine Nitrite Negative (Negative) POC Urine Bilirubin Negative (Negative) POC Urine Urobilinogen 0.2 POC U Leukocyte Esteras Negative (Negative) Discharge Plan Discharge Clinical Impression: Vaginal discharge, Dysuria Patient Disposition: Home Condition: Stable Instructions: Antibiotic Form, Urinary Tract Infection in Women (ED), Vaginal Discharge (ED) Additional Instructions: UTI discharge instructions Urinalysis is negative for any sign of infection or blood in the clinic today. We will send urine for culture Increase fluids and stay well hydrated Wipe front to back. May use wet wipes. Avoid tub baths If sexually active- pee before and after intercourse. Wear cotton panties Avoid tight clothing up against the genitals Follow up with your PCP in 1 week if symptoms persist. Vaginal discharge instructions Testing for chlamydia, gonorrhea, Trichomonas, bacterial vaginosis, and genital culture was sent to the lab. Take metronidazole and Diflucan as prescribed We have tested/treated you for STIs in the clinic today. Avoid any sexual activity- includes oral, anal, or vaginal intercourse until you get results back and have completed any additional recommended treatment regimens. We will contact you if testing is positive and make sure your treatment was appropriate for the type of STI. If symptoms worsen after treatment recommend reevaluation with your PCP or OBGYN Patient Language: Turkish Prescriptions: New metronidazole 500 mg tablet 500 mg PO BID 7 Days Qty: 14 0RF fluconazole 150 mg tablet 150 mg PO ONCE Qty: 2 0RF Rx Instructions: as a single dose. May repeat in 72 hours if needed. No Action cyclobenzaprine 10 mg tablet 10 mg PO TID trazodone 100 mg tablet 100 mg PO DIRECTED PRN (Reason: insomnia) Aimovig Autoinjector 70 mg/mL auto-injector 70 mg SUBCUT DIRECTED Qulipta 60 mg tablet 60 mg PO DAILY levothyroxine [Synthroid] 137 mcg tablet 137 mcg PO DAILY omeprazole 20 mg capsule,delayed release(DR/EC) 20 mg PO DAILY mometasone 50 mcg/actuation spray,non-aerosol 2 spray intranasal DAILY PRN (Reason: Shortness Of Breath Or Wheezing) Rx Instructions: administer into each nostril topiramate [Topamax] 50 mg tablet 50 mg PO TID sumatriptan succinate 100 mg tablet See Rx Instructions PO .COMPLEX Rx Instructions: take 1 tab at onset of headache; if no relief, may repeat 1 tab after at least 2 hrs; max = 2 tabs/24 hrs PO fexofenadine [Robyn Allergy] 180 mg tablet 180 mg PO DAILY aspirin [Adult Aspirin Regimen] 81 mg tablet,delayed release (DR/EC) 81 mg PO DAILY pilocarpine HCl 5 mg tablet 5 mg PO TID PreserVision AREDS 2 Plus MV 200 mcg-15 mcg- 5 mg-1 mg capsule 1 cap PO BID buspirone 15 mg tablet 15 mg PO DAILY pregabalin [Lyrica] 150 mg capsule 150 mg PO TID omega 1-ajv-pjb-fish oil [Fish Oil] 60-90-500 mg capsule 1 cap PO DAILY lidocaine 1.8 % adhesive patch,medicated 1 patch topical DAILY Rx Instructions: leave on most painful area for up to 12 hrs nebivolol [Bystolic] 5 mg tablet 5 mg PO DAILY Qty: 30 5RF Zepbound 2.5 mg/0.5 mL pen injector 2.5 mg subcut WEEKLY Rx Instructions: for 4 weeks buprenorphine-naloxone 8-2 mg tablet, sublingual 1 tablet sublingual TID Qty: 30 2RF eszopiclone [Lunesta] 3 mg tablet 3 mg PO QHS sertraline 25 mg tablet 25 mg PO DAILY meloxicam 15 mg tablet 15 mg PO DAILY Qty: 30 1RF Follow-up/Referrals: Quincy Obregon MD [Primary Care Provider, Internal Medicine] Time of Disposition: 14:48 Quality NIHSS Nursing Documentation ED NIHSS nursing documentation: reviewed/agree
--- OUTSIDE RECORDS SUMMARY | 2025-04-04 14:02 | XMS_ITS | Clinical Summary ---
Author Organization [address] Address [address] [place] [phone] Care Team Providers Care Flame Cutting Supervisor Name Role Phone Saul Ruelas MD Primary Care Provider [phone] Abiodun Red MD Unavailable [phone] Issac Amador MD Unavailable [phone] Kelly Jeronimo NP Unavailable [phone] Ronny Boykin MD Unavailable [phone] Allergies No known active allergies Medications cyclobenzaprine (FLEXERIL) 10 mg tablet Take 1 tablet (10 mg total) by mouth 3 (three) times a day as needed for muscle spasms 09/29/19 21 Active Synthroid 137 mcg tablet Take 1 tablet (137 mcg total) by mouth oven dumper before breakfast 09/16/19 21 Active pregabalin (LYRICA) [...] mg by mouth daily with breakfast Active clobetasoL (TEMOVATE) 0.05 % ointment Apply [...] skin every 7 days Sunday Active vit C,V-Dy-sools-andrea tein-zeaxan 250-90-40-1 mg capsule Take 2 capsules [...] bedtime 30 tablet 3 02/18/20 25 Active buprenorphine (BUTRANS) 20 mcg/hourIndicat ions:opioid use disorder Place 1 patch on the skin once for 7 days for 1 dose 1 patch 02/20/20 Active Additional Information Patient not taking.Reported on 03/23/2025 polyethylene glycol (MIRALAX) 17 gram/dose bulk powderIndicatio ns:constipation Take 17 g by mouth daily 510 g 02/20/20 25 Active senna-docusate (PERICOLACE) 8.6-50 mg Take 1 tablet by mouth 2 (two) times a day 60 tablet 02/20/20 25 Active naloxone (NARCAN) 4 mg/actuation spray,non-aeros ol Administer 1 spray into affected nostril(s) as needed for opioid reversal or respiratory depression Call 911. Administer a single spray in one nostril. Repeat every 3 minutes as needed if no or minimal response. 1 each 1 02/20/20 25 Active Additional Information Patient not taking.Reported on 03/23/2025 meloxicam (MOBIC) 7.5 mg tablet TAKE 1 TABLET(7.5 MG) BY MOUTH DAILY 30 tablet 2 03/09/20 25 Active clotrimazole-be tamethasone (LOTRISONE) cream APPLY TOPICALLY TO THE AFFECTED AREA TWICE DAILY 03/19/20 25 Active Ubrelvy 100 mg tablet 03/15/20 Active meloxicam (MOBIC) 7.5 mg tablet Take 1 tablet (7.5 mg total) by mouth daily 30 tablet 2 11/26/19 25 025 Discontinued acetaminophen (TYLENOL) 325 mg tabletIndicatio ns:Fever,Pain Take 2 tablets (650 mg total) by mouth every 6 (six) hours as needed for pain, headaches or fever 30 tablet 1 02/20/20 25 025 Active Problems Patient Care Coordination No te Formatting of this note migh t be different from the original. Meghan Baxter NP 03/04/2025 0932 This is a 44-year-old female patient presenting back to the clinic today for further discussion and follow-up regarding a right loculated parapneumonic effusion. She was initially referred by Dr. Boykin. She was initially seen in the hospital after being transferred from [facility] for the above diagnosis. Patient had a chest tube placed during recent hospitalization through which she received tPA/dornase for loculated effusion which was beneficial in treating the effusion. 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 She has never been a smoker. She is scheduled for a repeat chest x-ray prior to her visit today. All imaging available on file for review. She is here for further surgical evaluation and discussion. Problem Noted Date Diagnosed Date De Quervain's disease (radial styloid tenosynovi tis) 03/09/2025 Depressive disorder 03/09/2025 Distal radius fracture, right 03/09/2025 Foot fracture, left 03/09/2025 Radial head fracture, closed 03/09/2025 Parapneumonic effusion 03/09/2025 Pneumonia of right lower lobe due to infectious organism 03/09/2025 Abnormal weight gain 02/25/2025 ADD (attention deficit disorder) 02/25/2025 Overview (03/09/2025): Possibly. I just want to be evaluated. Numbness of hand 02/25/2025 Other obesity due to excess calories 02/25/2025 Loculated pleural effusion 02/11/2025 Hypothyroidism 02/11/2025 Hypertension 02/11/2025 Obesity (BMI 30-39.9) 02/11/2025 Polyarthralgia 11/25/2024 Assessment & Plan (03/03/2025 10:39 AM CDT): No evidence for an inflammatory arthritis on US, XR, or serologies so we deferred restarting HCQ. Likely multifactorial with chronic pain from fibromyalgia and degenerative arthritis. She is currently on suboxone through pain management. Billings some relief with meloxicam so resumed meloxicam 7.5mg PRN daily. Assessment & Plan (11/25/2024 11:53 AM CDT): No evidence for an inflammatory arthritis on US, XR, or serologies so will defer restarting HCQ at this time. Likely multifactorial with chronic pain from fibromyalgia and degenerative arthritis. She is currently on suboxone through pain management. Billings some relief with meloxicam so will resume [...] inflammation or erosion seen Assessment & Plan (03/03/2025 10:39 AM CDT): 44-year-old female with PMHx of HTN, HLD, stoke, blood clot, TONY, eczema, depression, anxiety, fibromyalgia, anemia, thyroid disease, GERD, and migraines here for evaluation of sicca symptom. C/o dry eyes, mouth, and skin tx w/ pilocarpine 5mg TID and Rx eye drops with some relief. Trial of cevimeline unfortunately caused worsening diaphoresis so switched back to pilocarpine. Rheumatologic evaluation with AVISE showed an isolated anti-thyroglobulin consistent with history of thyroid disease. [facility] panel was otherwise unremarkable for any other autoantibodies. XR of both hands was normal. US of the L hand/wrist did not show any significant findings to suggest an inflammatory arthritis. -Serologies are negative for Sj gren's syndrome. Previously discussed that definitive diagnosis at this point would be based on a salivary gland biopsy; however, this would not change the treatment plan which is based on symptomatic treatment of sicca symptoms. -Discussed that there is poor clinical evidence to suggest benefit of sicca symptoms with HCQ and that this is more beneficial for the extraglandular manifestations of Sjogren's. -Okay to continue pilocarpine 5mg TID. -Continue Meloxicam 7.5mg daily as she noted benefit of joint pain with this. -Follow up as needed. Assessment & Plan (11/25/2024 11:37 AM CDT): [...] needed. Assessment & Plan (09/01/2024 12:03 PM COMPUTER FORENSICS EXAMINER): 44-year-old female with PMHx of HTN, HLD, [...] dosing due to hx GERD. Will contact dress operator for records. Follow up in 2 weeks. Sooner if needed. Seen with Dr. Amador. Dyslipidemia 12/05/2023 Atypical chest pain 05/24/2023 Dyspnea on exertion 05/24/2023 Edema 05/24/2023 Chronic migraine without aur a without status migrainosus, not intractable 09/29/2022 Depression 05/16/2022 TONY (obstructive sleep apnea) 10/05/2020 Assessment & Plan (03/12/2025 11:13 AM CDT): The patient has an elevated AHI on CPAP at 8 cm water pressure. She is intolerant of higher pressures in the past but is willing now to try 9 cm water. Her DME supplier is [employer]. I will have an order sent to increase the pressure setting to 9 cm water and she will follow up here in 3 months. We did discuss the inspire device. Assessment & Plan (01/12/2025 2:03 PM CDT): The patient is intolerant of higher CPAP pressures, she will continue CPAP at 8 cm water pressure. She is aware that her AHI is elevated. DME [employer] Assessment & Plan (07/01/2024 10:25 AM COMPUTER FORENSICS EXAMINER): Patient continue with CPAP at 8 cm water pressure while sleeping. She was intolerable of higher pressures in the past. DME is [employer]. Assessment & Plan (06/28/2023 11:59 AM COMPUTER FORENSICS EXAMINER): Due to continued symptoms, the patient will continue CPAP at 8 cm water pressure. The patient has an elevated AHI, however she is intolerant of higher pressure. Denied need for supplies. DME [employer] Assessment & Plan (06/27/2022 12:02 PM COMPUTER FORENSICS EXAMINER): Patient continue to wear CPAP at 8 cm water pressure while sleeping. Her DME is [employer]. The patient did not tolerate an increase in her pressures in the past. Assessment & Plan (06/30/2021 11:05 AM COMPUTER FORENSICS EXAMINER): Patient continue to wear CPAP at 8 [...] masks. The patient denied need for supplies. [employer]. The patient and I discussed the recall [...] open while sleeping. The DME company is [employer]. The patient is benefitting from CPAP therapy. Primary insomnia 10/05/2020 Assessment & Plan (03/12/2025 11:14 AM CDT): She continues on Lunesta 3 mg p.o. q.h.s. and this is treating the insomnia adequately. She does have trazodone to try if the Lunesta is ineffective. I did tell her not take both of the medications on the same night. Assessment & Plan (01/12/2025 2:05 PM CDT): [...] person. Assessment & Plan (07/01/2024 10:25 AM COMPUTER FORENSICS EXAMINER): The patient continues with Lunesta 3 mg on most nights. Assessment & Plan (06/28/2023 11:58 AM COMPUTER FORENSICS EXAMINER): Due to continued symptoms, the patient will continue Lunesta 3 mg nightly. I have refilled the medication and will refill for 1 year Patient is aware that she should wear her CPAP machine if taking the medication. Assessment & Plan (06/27/2022 12:02 PM COMPUTER FORENSICS EXAMINER): The patient will continue with Lunesta 3 mg p.o. at bedtime to treat insomnia. Assessment & Plan (06/30/2021 11:04 AM COMPUTER FORENSICS EXAMINER): The patient will continue with Lunesta 3 mg p.o. at bedtime to treat insomnia. Assessment & Plan (04/07/2021 11:40 AM CDT): The patient will continue with Lunesta 3 mg p.o. at bedtime to treat insomnia. Assessment & Plan (10/05/2020 11:45 AM CDT): The patient will continue to follow with primary care physician in regards to insomnia and treatment options. Lumbar spondylosis 01/14/2019 Spasm 01/14/2019 Thompson's neuroma of right foot 12/16/2018 Chronic neck pain 11/10/2018 Chronic pain syndrome 11/06/2018 Fibromyalgia 11/06/2018 Low back pain 11/06/2018 Opioid dependence 11/06/2018 Sacroiliac joint pain 11/06/2018 Anxiety 10/08/2012 Stroke 10/08/2012 Chronic back pain 02/20/2010 Encounters Date Type Department Care Team Description 03/23/2025 11:30 AM CDT Office Visit [facility] Pulmonology [address] [place] [phone] Ronny Boykin MD TONY (obstructive sleep apnea) (Primary Dx); Non-smoker; Loculated pleural effusion 03/12/2025 10:45 AM CDT Office Visit [facility] Pulmonary [address] [place] [phone] Milton Langley MD TONY (obstructive sleep apnea) (Primary Dx); Primary insomnia 03/12/[address] [facility] Pulmonary [address] [place] [phone] Milton Langley MD Orders Only 03/09/2025 2:10 PM CDT - 03/09/2025 11:59 PM CDT Hospital Encounter [facility] MOB 1 DIAG IMG [address] [place] [phone] Pleural effusion Discharge Disposition: Discharge to home or self care 03/09/2025 1:30 PM CDT Office Visit [facility] [address] [place] [address] [address] [place] [phone] Omid Brock MD Loculated pleural effusion (Primary Dx); Pneumonia of right lower lobe due to infectious organism; Parapneumonic effusion 03/03/2025 10:00 AM CDT Office Visit [address] [phone] Vicenta Early PA Sicca complex (Primary Dx); Polyarthralgia 03/02/2025 Orders Only [facility] [address] [place] [address] [address] [place] [phone] Omid Brock MD Pleural effusion (Primary Dx) 02/10/2025 11:46 PM CDT - 02/19/2025 12:30 PM CDT Hospital Encounter [address] [address] [place], MD Liana Covington Akhil, MD Opoku, Michael, MD Loculated pleural effusion [J90] (Primary Dx); TONY (obstructive sleep apnea) [G47.33]; Hypothyroidism, unspecified type [E03.9]; Hypertension, unspecified type [I10]; Obesity (BMI 30-39.9) [E66.9] Discharge Disposition: Discharge to home or self care 01/12/2025 1:30 PM CDT Office Visit [facility] Pulmonary [address] [place] [phone] Kelly Jeronimo NP TONY (obstructive sleep apnea) (Primary Dx); Primary insomnia from Last 3 Months Surgical History Surgery Date Site/Laterality Comments SECTION 06/26/2008 GASTRIC BYPASS 06/15/2009 - 07/15/2009 CHOLECYSTECTOMY 09/13/2009 - 10/13/2009 ABDOMINAL HERNIA REPAIR 07/16/2011 - 07/15/2012 FOOT NEUROMA SURGERY 07/16/2017 - 07/15/[address] CHEST TUBE INSERTION LEFT 02/12/2025 N/A Medical History Medical History Date Comments Hypercholesteremia Eczema Depression Disorder of thyroid gland Thrombotic stroke (HCC) with no residual Sjogren's syndrome Hypertension Fibromyalgia Anxiety Anemia Heartburn Migraines Sleep apnea CPAP usage Social History Tobacco Use Types Packs/Day Years Used Date Smoking Tobacco: Never Smokeless Tobacco: Never Tobacco Cessation:Counseling Given: Not Answered [facility] Utilities Answer Date Recorded In the past 12 months has e [employer] management, gas, oil, or water company threatened to shut off services in your [...] week 02/11/2025 How often do you attend chur ch or adventist services? Never 02/11/2025 Do you belong to any clubs o r organizations such as catholic groups, unions, fraternal or athletic groups, or [...] any time in the past 12 m [facility], were you homeless or living in a jail (including now)? No 02/11/2025 Personal Safety Answer Date Recorded Have you ever been in or are you currently in a harmful physical or emotional relationship or is someone making you feel afraid or unsafe? Denies 02/10/2025 Comments Unknown Sex and Gender Information Value Date Recorded Sex Assigned at Not on file Legal Sex Female 9:00 AM COMPUTER FORENSICS EXAMINER Gender Identity Female 09/06/2024 3:20 PM COMPUTER FORENSICS EXAMINER Sexual Orientation Not on file Obstetrics History Last Filed Vital Signs Vital Sign Reading Time Taken Comments Blood Pressure 109/75 03/23/2025 11:34 AM CDT Pulse 95 03/23/2025 11:34 AM CDT Temperature 36.1 C (97 F) 03/23/2025 11:34 AM CDT Respiratory Rate 18 03/23/2025 11:3 4 AM CDT Oxygen Saturation 96% 03/23/2025 11: 34 AM CDT Inhaled Oxygen Concentration - - Weight 116.9 kg (257 lb 12.8 oz) 2024 11:34 AM CDT Height 177.8 cm (5' 10) 03/23/2025 11: 34 AM CDT Body Mass Index 36.99 03/23/2025 11:34 AM CDT Plan of Treatment Health Maintenance Due Date Last Done Comments Breast Cancer Screening-Mammogram 1980 Cervical Cancer Screening 1980 Depression Screening 1980 Hepatitis C Screening 1980 Hepatitis B Screening 1998 Regular Well Visit/Exam 18-64 1998 Covid-19 Vaccine (3 - 2024- season) 2025 10/21/2020, 09/28/2020 Influenza Vaccine (#1) 2025 , 04/18/2019, 06/05/2018, Additional history exists DTaP/Tdap/Td Vaccine (3 - Td or Tdap) 03/04/2028 03/04/2018, 05/28/2012, 04/21/2002 HPV Vaccines Completed 01/21/2007, 08/2006, 07/11/2006 Varicella Vaccines Completed 07/27/2009, 05/28/2009 Pneumococcal vaccine <65 Aged Out No longer eligible based on patient's age to complete this topic Procedures Procedure Name Priority Date/Time Associated Diagnosis Comments XR CHEST PA LATERAL 2 VIEWS Schedule Routine, Read Routine (OP Routine) 03/09/2025 2:31 PM CDT Pleural effusion EGFR Routine 02/19/2025 2:29 AM CDT DIFFERENTIAL [...] AM CDT VANCOMYCIN LEVEL TROUGH Timed 02/13/20 6:36 AM CDT HIV 1/2 ANTIBODY PLUS [...] CDT from Last 3 Months Results * XR Chest Pa Lateral 2 Views (03/09/2025 2:31 PM CDT) Anatomical Region Laterality Modality Body, Chest N/A Computed Radiogr aphy 03/18/2025 10:2 4 PM CDT Narrative 03/18/2025 10:25 PM CDT EXAM DESCRIPTION: XR CHEST PA LATERAL 2 VIEWS REASON FOR STUDY: Follow up exam, shortness of breath on exertion TECHNIQUE: 2 radiographic view(s) of the chest. COMPARISON: 02/18/2025 FINDINGS: LUNGS: There has been significant clearing of the right base. Mild elevation of the right diaphragm persists. Some strandy probable scarring is seen in the right. Left lung appears clear. HEART/MEDIASTINUM: Cardiac silhouette normal in size. Mediastinal and hilar contours appear normal. LINES/TUBES: None. BONES: No acute osseous abnormality. IMPRESSION: Significant improvement of the right lung with some residual scarring suspected. THIS IS AN ELECTRONICALLY VERIFIED FINAL REPORT 03/18/2025 10:25 PM - Electronically signed by Ashok DIGGS: DONTAE Report ID: [id number] Reading Location: [place] [address] Procedure Note Ashok Cheema MD - 03/18/2025 EXAM DESCRIPTION: XR CHEST PA LATERAL 2 VIEWS REASON FOR STUDY: Follow up exam, shortness of breath on exertion TECHNIQUE: 2 radiographic view(s) of the chest. COMPARISON: 02/18/2025 FINDINGS: LUNGS: There has been significant clearing of the right base.Mild elevation of the right diaphragm persists. Some strandy probable scarringis seen in the right. Left lung appears clear. HEART/MEDIASTINUM: Cardiac silhouette normal in size. Mediastinal andhilar contours appear normal. LINES/TUBES: None. BONES: No acute osseous abnormality. IMPRESSION: Significant improvement of the right lung with some residual scarring suspected. THIS IS AN ELECTRONICALLY VERIFIED FINAL REPORT 03/18/2025 10:25 PM - Electronically signed by Ashok DIGGS: DONTAE Report ID: [id number] Reading Location: [place] [address] Omid Brock MD IMG XR PROCEDURES Final Resul t * eGFR (02/19/2025 2:29 AM CDT) eGFR >90 >=60 mL/min/1. 73 [...] MD LAB BLOOD ORDERABLES Final Resu lt [facility] [address] Department [place] [address] * (ABNORMAL) Differential, auto (02/19/2025 2:29 AM CDT) Neutrophil abs 3.16 1.50 - 6.50 K/cumm Imm gran abs 0.28(H) 0.00 - 0.10 K/cumm [facility] Lymphocyte abs 2.70 0.80 - 3.30 K/cumm [facility] Monocyte abs 0.76 0.20 - 0.80 K/cumm [facility] Eosinophil abs 0.16 0.00 - 0.50 K/cumm [facility] Basophil abs 0.06 0.00 - 0.10 K/cumm [facility] Neutrophil pct 44.5 % [facility] Comment: Interpretive Data Percent cell count reference ranges are not reported, since discordance with absolute values may lead to misinterpretation of CBC data. Current Interpretive Data was last revised on 2017. Imm gran pct 3.9 % [facility] Comment: Interpretive Data Percent cell count reference ranges are not reported, since discordance with absolute values may lead to misinterpretation of CBC data. Current Interpretive Data was last revised on 2017. Lymphocyte pct 37.9 % [facility] Comment: Interpretive Data Percent cell count reference ranges are not reported, since discordance with absolute values may lead to misinterpretation of CBC data. Current Interpretive Data was last revised on 2017. Monocyte pct 10.7 % [facility] Comment: Interpretive Data Percent cell count reference ranges are not reported, since discordance with absolute values may lead to misinterpretation of CBC data. Current Interpretive Data was last revised on 2017. Eosinophil pct 2.2 % [facility] Comment: Interpretive Data Percent cell count reference ranges are not reported, since discordance with absolute values may lead to misinterpretation of CBC data. Current Interpretive Data was last revised on 2017. Basophil pct 0.8 % [facility] Comment: Interpretive Data Percent cell count reference ranges are not reported, since discordance with absolute values may lead to misinterpretation of CBC data. Current Interpretive Data was last revised on 2017. Blood 02/19/2025 2:29 AM CDT 02/19/2025 3:28 AM CDT Piter Steele MD LAB BLOOD ORDERABLES Final Result [facility] [address] Department [place] [address] * (ABNORMAL) CBC with auto differential (02/19/2025 2:29 AM CDT) WBC 7.12 3.80 - 9.90 K/cumm Hgb 9.9(L) 11.9 - 15.5 g/dL [facility] Hct 31.4(L) 35.6 - 45.5 % [facility] Plt 561(H) 150 - 400 K/cumm [facility] MPV 8.7(L) 9.1 - 12.3 fL [facility] RBC 3.20(L) 3.90 - 5.20 M/cumm [facility] MCV 98.1(H) 81.3 - 96.4 fL [facility] MCH 30.9 27.1 - 33.3 pg [facility] MCHC 31.5(L) 32.3 - 35.7 g/dL [facility] RDW CV 12.6 11.1 - 14.9 % [facility] RDW SD 45.0 35.7 - 48.1 fL [facility] NRBC abs 0.00 0.00 - 0.01 K/cumm [facility] Blood 02/19/2025 2:29 AM CDT 02/19/2025 3:28 AM CDT Piter Steele MD LAB BLOOD ORDERABLES Final Result Performing Organization Address [facility] de Phone Number [address] [employer] [address] * Basic metabolic panel (02/19/2025 2:29 AM CDT) Pathologist [facility] Sodium 144 135 - 145 mmol/L Potassium, pl 4.0 3.3 - 4.9 mmol/L [facility] Chloride 109 97 - 110 mmol/L [facility] CO2 28 22 - 32 mmol/L [facility] Anion gap 7 2 - 15 mmol/L [facility] BUN 6 6 - 25 mg/dL [facility] Creatinine 0.66 0.60 - 1.10 mg/dL [facility] Glucose 90 70 - 199 mg/dL [facility] Comment: Interpretive Data Fasting glucose >/= 126 [...] 2022. Calcium 8.5 8.5 - 10.3 mg/dL [facility] Blood 02/19/2025 2:29 AM CDT 02/19/2025 3:27 AM CDT Quincy Goyal MD LAB BLOOD ORDERABLES Final Resu lt Performing Organization Address [facility] Co de Phone Number [address] [employer] [address] * XR Chest 1 View (02/18/2025 5:48 AM CDT) Anatomical Region Laterality Modality Body, Chest N/A Computed Radiogr aphy 02/18/2025 8:35 AM CDT Narrative 02/18/2025 8:38 AM CDT EXAM DESCRIPTION: XR CHEST 1 VIEW REASON FOR STUDY: Follow up of right chest tube, pleural effusion Follow up of right chest tube, pleural effusion Transfer from [facility] 02/10 with right-sided chest pain. 02/11 Ct [...] Delmi Fuentes M.D. TW T: Report ID: [id number] Reading Location: [id number] Procedure Note Delmi Fuentes MD - 02/18/2025 EXAM DESCRIPTION: XR CHEST 1 VIEW REASON FOR STUDY: Follow up of right chest tube, pleural effusion Follow up of right chest tube, [facility] effusion [facility] right-sided chest pain. 02/11 Ct [...] Delmi Fuentes M.D. TW T: Report ID: [id number] Reading Location: [place] [address] Ronny Boykin MD IMG XR PROCEDURES Final [...] MD LAB BLOOD ORDERABLES Final Resu lt [facility] [address] Department [place] [address] * (ABNORMAL) Differential, auto (02/18/2025 3:27 AM CDT) Neutrophil abs 4.98 1.50 - 6.50 K/cumm Imm gran abs 0.43(H) 0.00 - 0.10 K/cumm [facility] Lymphocyte abs 2.63 0.80 - 3.30 K/cumm [facility] Monocyte abs 0.81(H) 0.20 - 0.80 K/cumm [facility] Eosinophil abs 0.14 0.00 - 0.50 K/cumm [facility] Basophil abs 0.05 0.00 - 0.10 K/cumm [facility] Neutrophil pct 55.0 % [facility] Comment: Interpretive Data Percent cell count reference ranges are not reported, since discordance with absolute values may lead to misinterpretation of CBC data. Current Interpretive Data was last revised on 2017. Imm gran pct 4.8 % [facility] Comment: Interpretive Data Percent cell count reference ranges are not reported, since discordance with absolute values may lead to misinterpretation of CBC data. Current Interpretive Data was last revised on 2017. Lymphocyte pct 29.1 % [facility] Comment: Interpretive Data Percent cell count reference ranges are not reported, since discordance with absolute values may lead to misinterpretation of CBC data. Current Interpretive Data was last revised on 2017. Monocyte pct 9.0 % [facility] Comment: Interpretive Data Percent cell count reference ranges are not reported, since discordance with absolute values may lead to misinterpretation of CBC data. Current Interpretive Data was last revised on 2017. Eosinophil pct 1.5 % [facility] Comment: Interpretive Data Percent cell count reference ranges are not reported, since discordance with absolute values may lead to misinterpretation of CBC data. Current Interpretive Data was last revised on 2017. Basophil pct 0.6 % [facility] Comment: Interpretive Data Percent cell count reference ranges are not reported, since discordance with absolute values may lead to misinterpretation of CBC data. Current Interpretive Data was last revised on 2017. Blood 02/18/2025 3:27 AM CDT 02/18/2025 4:09 AM CDT us Piter Steele MD LAB BLOOD ORDERABLES Final Result [place] [id number] [facility] Department [place] [address] * (ABNORMAL) CBC with auto differential (02/18/2025 3:27 AM CDT) WBC 9.04 3.80 - 9.90 K/cumm Hgb 10.0(L) 11.9 - 15.5 g/dL [facility] Hct 31.6(L) 35.6 - 45.5 % [facility] Plt 545(H) 150 - 400 K/cumm [facility] MPV 8.7(L) 9.1 - 12.3 fL [facility] RBC 3.24(L) 3.90 - 5.20 M/cumm [facility] MCV 97.5(H) 81.3 - 96.4 fL [facility] MCH 30.9 27.1 - 33.3 pg [facility] MCHC 31.6(L) 32.3 - 35.7 g/dL [facility] RDW CV 12.6 11.1 - 14.9 % [facility] RDW SD 44.7 35.7 - 48.1 fL [facility] NRBC abs 0.00 0.00 - 0.01 K/cumm [facility] Blood 02/18/2025 3:27 AM CDT 02/18/2025 4:09 AM CDT Piter Steele MD LAB BLOOD ORDERABLES Final Result Performing Organization Address [facility] Co de Phone Number [facility] [address] [place] [address] * (ABNORMAL) Basic metabolic panel (02/18/2025 3:27 AM CDT) Pathologist [facility] Sodium 142 135 - 145 mmol/L Potassium, pl 3.9 3.3 - 4.9 mmol/L [facility] Chloride 108 97 - 110 mmol/L [facility] CO2 26 22 - 32 mmol/L [facility] Anion gap 8 2 - 15 mmol/L [facility] BUN 5(L) 6 - 25 mg/dL [facility] Creatinine 0.54(L) 0.60 - 1.10 mg/dL [facility] Glucose 84 70 - 199 mg/dL [facility] Comment: Interpretive Data Fasting glucose >/= 126 [...] 2022. Calcium 8.4(L) 8.5 - 10.3 mg/dL [facility] Blood 02/18/2025 3:27 AM CDT 02/18/2025 4:09 AM CDT Quincy Goyal MD LAB BLOOD ORDERABLES Final Resu lt Performing Organization Address City/[facility]/ZIP Co de Phone Number [facility] [address] [place] [address] * XR Chest 1 View (02/17/2025 6:06 AM CDT) Anatomical Region Laterality Modality Body, Chest N/A Computed Radiogr aphy 02/17/2025 10:0 9 AM CDT Narrative 02/17/2025 10:12 AM CDT EXAM DESCRIPTION: XR CHEST 1 VIEW REASON FOR STUDY: Follow up of right chest tube, pleural effusion Follow up of right chest tube, pleural effusion Transfer from [facility] 02/10 with right-sided chest pain. 02/11 Ct [...] Robert Cano M.D. MZ T: Report ID: [id number] Reading Location: [id number] Procedure Note Robert Cano MD - 02/17/2025 EXAM DESCRIPTION: XR CHEST 1 VIEW REASON FOR STUDY: Follow up of right chest tube, pleural effusion Follow up of right chest tube, [facility] effusion [facility]-sided chest pain. 02/11 Ct [...] Robert Cano M.D. MZ T: Report ID: [id number] Reading Location: [place] [address] Ronny Boykin MD IMG XR PROCEDURES Final [...] 3:35 AM CDT 02/17/2025 4:09 AM CDT Quincy Goyal MD LAB BLOOD ORDERABLES Final Resu lt [facility] [address] [facility] [facility] Department [place] [address] * (ABNORMAL) Differential, auto (02/17/2025 3:35 AM CDT) Neutrophil abs 6.53(H) 1.50 - 6.50 K/cumm Imm gran abs 0.51(H) 0.00 - 0.10 K/cumm [facility] Lymphocyte abs 2.41 0.80 - 3.30 K/cumm [facility] Monocyte abs 0.87(H) 0.20 - 0.80 K/cumm [facility] Eosinophil abs 0.17 0.00 - 0.50 K/cumm [facility] Basophil abs 0.04 0.00 - 0.10 K/cumm [facility] Neutrophil pct 62.0 % [facility] Comment: Interpretive Data Percent cell count reference ranges are not reported, since discordance with absolute values may lead to misinterpretation of CBC data. Current Interpretive Data was last revised on 2017. Imm gran pct 4.8 % [facility] Comment: Interpretive Data Percent cell count reference ranges are not reported, since discordance with absolute values may lead to misinterpretation of CBC data. Current Interpretive Data was last revised on 2017. Lymphocyte pct 22.9 % [facility] Comment: Interpretive Data Percent cell count reference ranges are not reported, since discordance with absolute values may lead to misinterpretation of CBC data. Current Interpretive Data was last revised on 2017. Monocyte pct 8.3 % [facility] Comment: Interpretive Data Percent cell count reference ranges are not reported, since discordance with absolute values may lead to misinterpretation of CBC data. Current Interpretive Data was last revised on 2017. Eosinophil pct 1.6 % [facility] Comment: Interpretive Data Percent cell count reference ranges are not reported, since discordance with absolute values may lead to misinterpretation of CBC data. Current Interpretive Data was last revised on 2017. Basophil pct 0.4 % [facility] Comment: Interpretive Data Percent cell count reference ranges are not reported, since discordance with absolute values may lead to misinterpretation of CBC data. Current Interpretive Data was last revised on 2017. Blood 02/17/2025 3:35 AM CDT 02/17/2025 4:08 AM CDT Piter Steele MD LAB BLOOD ORDERABLES Final Result [facility] [address] [facility] Department [place] [address] * (ABNORMAL) CBC with auto differential (02/17/2025 3:35 AM CDT) WBC 10.53(H) 3.80 - 9.90 K/cumm Hgb 10.4(L) 11.9 - 15.5 g/dL [facility] Hct 32.6(L) 35.6 - 45.5 % [facility] Plt 499(H) 150 - 400 K/cumm [facility] MPV 8.9(L) 9.1 - 12.3 fL [facility] RBC 3.33(L) 3.90 - 5.20 M/cumm [facility] MCV 97.9(H) 81.3 - 96.4 fL [facility] MCH 31.2 27.1 - 33.3 pg [facility] MCHC 31.9(L) 32.3 - 35.7 g/dL [facility] RDW CV 12.7 11.1 - 14.9 % [facility] RDW SD 45.1 35.7 - 48.1 fL [facility] NRBC abs 0.00 0.00 - 0.01 K/cumm [facility] Blood 02/17/2025 3:35 AM CDT 02/17/2025 4:08 AM CDT Piter Steele MD LAB BLOOD ORDERABLES Final Result Performing Organization Address [facility] Co de Phone Number CARO[facility] [address] [place] [address] * (ABNORMAL) Basic metabolic panel (02/17/2025 3:35 AM CDT) Pathologist [facility] Sodium 139 135 - 145 mmol/L Potassium, pl 3.9 3.3 - 4.9 mmol/L [facility] Chloride 106 97 - 110 mmol/L [facility] CO2 27 22 - 32 mmol/L [facility] Anion gap 6 2 - 15 mmol/L [facility] BUN 5(L) 6 - 25 mg/dL [facility] Creatinine 0.52(L) 0.60 - 1.10 mg/dL [facility] Glucose 89 70 - 199 mg/dL [facility] Comment: Interpretive Data Fasting glucose >/= 126 [...] 2022. Calcium 8.4(L) 8.5 - 10.3 mg/dL [facility] Blood 02/17/2025 3:35 AM CDT 02/17/2025 4:09 AM CDT Quincy Goyal MD LAB BLOOD ORDERABLES Final Resu lt Performing Organization Address City/[facility]/ZIP Co de Phone Number [facility] [address] [place] [address] * XR Humerus Right 2 or More [...] Riley Ford M.D. AR T: Report ID: [id number] Reading Location: [id number] Procedure Note Riley Ford MD - 02/16/2025 [...] Riley Ford M.D. AR T: Report ID: [id number] Reading Location: [id number] [facility] XR PROCEDURES Final R [...] Riley Ford M.D. AR T: Report ID: [id number] Reading Location: [id number] Procedure Note Riley Ford MD - 02/16/2025 [...] Riley Ford M.D. AR T: Report ID: [id number] Reading Location: [id number] [facility] XR PROCEDURES Final R esult * XR Chest 1 View (02/16/2025 5:50 AM CDT) Anatomical Region Laterality Modality Body, Chest N/A Computed Radiogr aphy 02/16/2025 9:25 AM CDT Narrative 02/16/2025 9:26 AM CDT EXAM DESCRIPTION: XR CHEST 1 VIEW REASON FOR STUDY: Follow up of right chest tube, pleural effusion Follow up of right chest tube, pleural effusion Transfer from [facility] 02/10 with right-sided chest pain. 02/11 Ct [...] - Electronically signed by Giacomo Araiza M.D. T: Report ID: [id number] Reading Location: [id number] Procedure Note Giacomo Araiza MD - 02/16/2025 EXAM DESCRIPTION: XR CHEST 1 VIEW REASON FOR STUDY: Follow up of right chest tube, pleural effusion Follow up of right chest tube, [facility]-sided [facility]. 02/11 Ct [...] Giacomo Araiza M.D. RB T: Report ID: [id number] Reading Location: [place] [address] us Ronny Boykin MD IMG XR PROCEDURES [...] MD LAB BLOOD ORDERABLES Final Resu lt [id number] [address] [facility] Department [place] [address] * (ABNORMAL) Differential, auto (02/16/2025 2:53 AM CDT) Neutrophil abs 7.55(H) 1.50 - 6.50 K/cumm Imm gran abs 0.60(H) 0.00 - 0.10 K/cumm [facility] Lymphocyte abs 2.40 0.80 - 3.30 K/cumm [facility] Monocyte abs 1.20(H) 0.20 - 0.80 K/cumm [facility] Eosinophil abs 0.16 0.00 - 0.50 K/cumm [facility] Basophil abs 0.06 0.00 - 0.10 K/cumm [facility] Neutrophil pct 63.1 % [facility] Comment: Interpretive Data Percent cell count reference ranges are not reported, since discordance with absolute values may lead to misinterpretation of CBC data. Current Interpretive Data was last revised on 2017. Imm gran pct 5.0 % [facility] Comment: Interpretive Data Percent cell count reference ranges are not reported, since discordance with absolute values may lead to misinterpretation of CBC data. Current Interpretive Data was last revised on 2017. Lymphocyte pct 20.1 % [facility] Comment: Interpretive Data Percent cell count reference ranges are not reported, since discordance with absolute values may lead to misinterpretation of CBC data. Current Interpretive Data was last revised on 2017. Monocyte pct 10.0 % [facility] Comment: Interpretive Data Percent cell count reference ranges are not reported, since discordance with absolute values may lead to misinterpretation of CBC data. Current Interpretive Data was last revised on 2017. Eosinophil pct 1.3 % [facility] Comment: Interpretive Data Percent cell count reference ranges are not reported, since discordance with absolute values may lead to misinterpretation of CBC data. Current Interpretive Data was last revised on 2017. Basophil pct 0.5 % [facility] Comment: Interpretive Data Percent cell count reference ranges are not reported, since discordance with absolute values may lead to misinterpretation of CBC data. Current Interpretive Data was last revised on 2017. Blood 02/16/2025 2:53 AM CDT 02/16/2025 3:07 AM CDT us Piter Steele MD LAB BLOOD ORDERABLES Final Result [place] [address] [facility] Department [place] [address] * (ABNORMAL) CBC with auto differential (02/16/2025 2:53 AM CDT) [facility] WBC 11.97(H) 3.80 - 9.90 K/cumm Hgb 10.6(L) 11.9 - 15.5 g/dL [facility] Hct 33.4(L) 35.6 - 45.5 % [facility] Plt 432(H) 150 - 400 K/cumm [facility] MPV 8.7(L) 9.1 - 12.3 fL [facility] RBC 3.42(L) 3.90 - 5.20 M/cumm [facility] MCV 97.7(H) 81.3 - 96.4 fL [facility] MCH 31.0 27.1 - 33.3 pg [facility] MCHC 31.7(L) 32.3 - 35.7 g/dL [facility] RDW CV 12.6 11.1 - 14.9 % [facility] RDW SD 45.6 35.7 - 48.1 fL [facility] NRBC abs 0.00 0.00 - 0.01 K/cumm [facility] Blood 02/16/2025 2:53 AM CDT 02/16/2025 3:07 AM CDT us Piter Steele MD LAB BLOOD ORDERABLES Final Result [facility] [address] [facility] Department [place] [address] * (ABNORMAL) Basic metabolic panel (02/16/2025 2:53 AM CDT) [facility] Sodium 141 135 - 145 mmol/L Potassium, pl 3.8 3.3 - 4.9 mmol/L [facility] Chloride 107 97 - 110 mmol/L [facility] CO2 28 22 - 32 mmol/L [facility] Anion gap 6 2 - 15 mmol/L [facility] BUN 6 6 - 25 mg/dL [facility] Creatinine 0.65 0.60 - 1.10 mg/dL [facility] Glucose 91 70 - 199 mg/dL [facility] Comment: Interpretive Data Fasting glucose >/= 126 [...] 2022. Calcium 8.2(L) 8.5 - 10.3 mg/dL [facility] Blood 02/16/2025 2:53 AM CDT 02/16/2025 3:07 AM CDT us Quincy Goyal MD LAB BLOOD ORDERABLES Final Resu lt Performing Organization Address City/[facility] Co de Phone Number [address] [employer] [address] * MRSA Only (Staphylococcus aureus) PCR Nasal (02/15/2025 5:43 PM CDT) PCR Scrn, Methicillin resistant Staphylococcus aureus (MRSA) Not Detected Not Detected Comment: Interpretive Data Testing performed using Nucleic Acid Amplification with the iSECUREtrac Xpert MRSA NxG Assay. This assay detects target DNA from mecA, mecC and the SCCmec insertion site of Staphylococcus aureus using Real-Time PCR and has been cleared by the FDA. Performance characteristics have been verified by the [facility]. Current Interpretive Data was last revised on 2023 Nasal 02/15/2025 5:43 PM CDT 02/15/2025 5:49 PM CDT Piter Steele MD LAB MICROBIOLOGY - G ENERAL ORDERABLES Final Result Performing Organization Address City/[facility]/ZIP Co de Phone Number [place] [id number] [facility] [place] [address] * XR Chest 1 View (02/15/2025 5:48 AM CDT) Anatomical Region Laterality Modality Body, Chest N/A Computed Radiogr aphy 02/15/2025 8:21 AM CDT Narrative 02/15/2025 8:23 AM CDT EXAM DESCRIPTION: XR CHEST 1 VIEW REASON FOR STUDY: Follow up of right chest tube, pleural effusion Follow up of right chest tube, pleural effusion Transfer from [facility] 02/10 with right-sided chest pain. 02/11 Ct [...] signed by Nico RICHARDS T: Report ID: [id number] Reading Location: [id number] Procedure Note Nico Alvarado MD - 02/15/2025 EXAM DESCRIPTION: XR CHEST 1 VIEW REASON FOR STUDY: Follow up of right chest tube, pleural effusion Follow up of right chest tube, [facility]-sided chest [facility]. 02/11 Ct [...] signed by Nico RICHARDS T: Report ID: [id number] Reading Location: [place] [address] us Ronny Boykin MD IMG XR PROCEDURES [...] MD LAB BLOOD ORDERABLES Final Resu lt [facility] [address] Department [place] [address] * (ABNORMAL) Differential, auto (02/15/2025 3:08 AM CDT) Neutrophil abs 8.25(H) 1.50 - 6.50 K/cumm Imm gran abs 0.79(H) 0.00 - 0.10 K/cumm [facility] Lymphocyte abs 2.16 0.80 - 3.30 K/cumm [facility] Monocyte abs 1.14(H) 0.20 - 0.80 K/cumm [facility] Eosinophil abs 0.11 0.00 - 0.50 K/cumm [facility] Basophil abs 0.05 0.00 - 0.10 K/cumm [facility] Neutrophil pct 66.0 % [facility] Comment: Interpretive Data Percent cell count reference ranges are not reported, since discordance with absolute values may lead to misinterpretation of CBC data. Current Interpretive Data was last revised on 2017. Imm gran pct 6.3 % [facility] Comment: Interpretive Data Percent cell count reference ranges are not reported, since discordance with absolute values may lead to misinterpretation of CBC data. Current Interpretive Data was last revised on 2017. Lymphocyte pct 17.3 % [facility] Comment: Interpretive Data Percent cell count reference ranges are not reported, since discordance with absolute values may lead to misinterpretation of CBC data. Current Interpretive Data was last revised on 2017. Monocyte pct 9.1 % [facility] Comment: Interpretive Data Percent cell count reference ranges are not reported, since discordance with absolute values may lead to misinterpretation of CBC data. Current Interpretive Data was last revised on 2017. Eosinophil pct 0.9 % [facility] Comment: Interpretive Data Percent cell count reference ranges are not reported, since discordance with absolute values may lead to misinterpretation of CBC data. Current Interpretive Data was last revised on 2017. Basophil pct 0.4 % [facility] Comment: Interpretive Data Percent cell count reference ranges are not reported, since discordance with absolute values may lead to misinterpretation of CBC data. Current Interpretive Data was last revised on 2017. Blood 02/15/2025 3:08 AM CDT 02/15/2025 3:22 AM CDT Piter Steele MD LAB BLOOD ORDERABLES Final Result [facility] [address] Department [place] [address] * (ABNORMAL) CBC with auto differential (02/15/2025 3:08 AM CDT) WBC 12.50(H) 3.80 - 9.90 K/cumm Hgb 11.3(L) 11.9 - 15.5 g/dL [facility] Hct 35.5(L) 35.6 - 45.5 % [facility] Plt 398 150 - 400 K/cumm [facility] MPV 8.8(L) 9.1 - 12.3 fL [facility] RBC 3.64(L) 3.90 - 5.20 M/cumm [facility] MCV 97.5(H) 81.3 - 96.4 fL [facility] MCH 31.0 27.1 - 33.3 pg [facility] MCHC 31.8(L) 32.3 - 35.7 g/dL [facility] RDW CV 12.5 11.1 - 14.9 % [facility] RDW SD 45.0 35.7 - 48.1 fL [facility] NRBC abs 0.00 0.00 - 0.01 K/cumm [facility] Blood 02/15/2025 3:08 AM CDT 02/15/2025 3:22 AM CDT Piter Steele MD LAB BLOOD ORDERABLES Final Result Performing Organization Address [facility]/ZIP Co de Phone Number [facility] [address] [place] [address] * (ABNORMAL) Basic metabolic panel (02/15/2025 3:08 AM CDT) [facility] Sodium 137 135 - 145 mmol/L Potassium, pl 4.0 3.3 - 4.9 mmol/L [facility] Chloride 104 97 - 110 mmol/L [facility] CO2 28 22 - 32 mmol/L [facility] Anion gap 5 2 - 15 mmol/L [facility] BUN 5(L) 6 - 25 mg/dL [facility] Creatinine 0.57(L) 0.60 - 1.10 mg/dL [facility] Glucose 95 70 - 199 mg/dL [facility] Comment: Interpretive Data Fasting glucose >/= 126 [...] 2022. Calcium 8.3(L) 8.5 - 10.3 mg/dL [facility] Blood 02/15/2025 3:08 AM CDT 02/15/2025 3:22 AM CDT us Quincy oGyal MD LAB BLOOD ORDERABLES Final Resu lt Performing Organization Address [facility]/ZIP Co de Phone Number [facility] [place] [address] * CT Chest WO Contrast (02/14/2025 3:39 [...] Riley Ford M.D. AR T: Report ID: [id number] Reading Location: [place] [address] Procedure Note Riley Ford MD - 02/14/2025 [...] signed by Riley RODRIGES T: Report ID: [id number] Reading Location: [id number] PROCEDURES Final Result * Vancomycin level trough Draw lab prior to vancomycin administration (02/14/2025 12:56 PM CDT) Vancomycin trough 15.3 10.0 - 20.0 mcg/mL Blood 02/14/2025 12:5 6 PM CDT 02/14/2025 1:07 PM CDT Narrative [facility] 02/14/2025 1:31 PM CDT Draw lab prior to vancomycin administration Piter Steele MD LAB BLOOD ORDERABLES Final Result [facility] [address] Department [place] [address] * XR Chest 1 View (02/14/2025 6:03 AM CDT) Anatomical Region Laterality Modality Body, Chest N/A Computed Radiogr aphy 02/14/2025 1:50 PM CDT Narrative 02/14/2025 1:52 PM CDT EXAM DESCRIPTION: XR CHEST 1 VIEW REASON FOR STUDY: Follow up of right chest tube, pleural effusion Follow up of right chest tube, pleural effusion Transfer from [facility] 02/10 with right-sided chest pain. 02/11 Ct [...] 1:52 PM - Electronically signed by Rigoberto DUNN T: Report ID: [id number] Reading Location: [place] [address] Procedure Note Cassidy Carnes MD - 02/14/2025 EXAM DESCRIPTION: XR CHEST 1 VIEW REASON FOR STUDY: Follow up of right chest tube, pleural effusion Follow up of right chest tube, [facility]-sided [facility] pain. 02/11 Ct [...] 1:52 PM - Electronically signed by Rigoberto DUNN T: Report ID: [id number] Reading Location: [place] [address] us Ronny Boykin MD IMG XR PROCEDURES [...] MD LAB BLOOD ORDERABLES Final R esult [facility] [address] Department [place] [address] * (ABNORMAL) Differential, auto (02/14/2025 3:06 AM CDT) Neutrophil abs 6.58(H) 1.50 - 6.50 K/cumm Imm gran abs 0.76(H) 0.00 - 0.10 K/cumm [facility] Lymphocyte abs 2.48 0.80 - 3.30 K/cumm [facility] Monocyte abs 0.93(H) 0.20 - 0.80 K/cumm [facility] Eosinophil abs 0.13 0.00 - 0.50 K/cumm [facility] Basophil abs 0.09 0.00 - 0.10 K/cumm [facility] Neutrophil pct 60.0 % [facility] Comment: Interpretive Data Percent cell count reference ranges are not reported, since discordance with absolute values may lead to misinterpretation of CBC data. Current Interpretive Data was last revised on 2017. Imm gran pct 6.9 % [facility] Comment: Interpretive Data Percent cell count reference ranges are not reported, since discordance with absolute values may lead to misinterpretation of CBC data. Current Interpretive Data was last revised on 2017. Lymphocyte pct 22.6 % [facility] Comment: Interpretive Data Percent cell count reference ranges are not reported, since discordance with absolute values may lead to misinterpretation of CBC data. Current Interpretive Data was last revised on 2017. Monocyte pct 8.5 % [facility] Comment: Interpretive Data Percent cell count reference ranges are not reported, since discordance with absolute values may lead to misinterpretation of CBC data. Current Interpretive Data was last revised on 2017. Eosinophil pct 1.2 % [facility] Comment: Interpretive Data Percent cell count reference ranges are not reported, since discordance with absolute values may lead to misinterpretation of CBC data. Current Interpretive Data was last revised on 2017. Basophil pct 0.8 % [facility] Comment: Interpretive Data Percent cell count reference ranges are not reported, since discordance with absolute values may lead to misinterpretation of CBC data. Current Interpretive Data was last revised on 2017. Blood 02/14/2025 3:06 AM CDT 02/14/2025 3:30 AM CDT us Piter Steele MD LAB BLOOD ORDERABLES Final Result [facility] [address] Department of Laboratories [place], [place] [id number] * (ABNORMAL) CBC with auto differential (02/14/2025 3:06 AM CDT) WBC 10.97(H) 3.80 - 9.90 K/cumm Hgb 11.4(L) 11.9 - 15.5 g/dL [facility] Hct 35.4(L) 35.6 - 45.5 % [facility] Plt 364 150 - 400 K/cumm [facility] MPV 9.0(L) 9.1 - 12.3 fL [facility] RBC 3.62(L) 3.90 - 5.20 M/cumm [facility] MCV 97.8(H) 81.3 - 96.4 fL [facility] MCH 31.5 27.1 - 33.3 pg [facility] MCHC 32.2(L) 32.3 - 35.7 g/dL [facility] RDW CV 12.6 11.1 - 14.9 % [facility] RDW SD 45.6 35.7 - 48.1 fL [facility] NRBC abs 0.00 0.00 - 0.01 K/cumm [facility] Blood 02/14/2025 3:06 AM CDT 02/14/2025 3:30 AM CDT us Piter Steele MD LAB BLOOD ORDERABLES Final Result [facility] [address] Department [place] [address] * (ABNORMAL) Comprehensive metabolic panel (02/14/2025 3:06 AM CDT) Sodium 137 135 - 145 mmol/L Potassium, pl 3.8 3.3 - 4.9 mmol/L [facility] Chloride 104 97 - 110 mmol/L [facility] CO2 25 22 - 32 mmol/L [facility] Anion gap 8 2 - 15 mmol/L [facility] BUN 5(L) 6 - 25 mg/dL [facility] Creatinine 0.62 0.60 - 1.10 mg/dL [facility] Glucose 90 70 - 199 mg/dL [facility] Comment: Interpretive Data Fasting glucose >/= 126 [...] 2022. Calcium 8.5 8.5 - 10.3 mg/dL [facility] Bilirubin, total <0.2 0.1 - 1.2 mg/dL [facility] Protein, pl 5.0(L) 6.5 - 8.5 g/dL [facility] Albumin 2.2(L) 3.5 - 5.0 g/dL [facility] Alk phos 138(H) 40 - 130 Units/L [facility] ALT 11 7 - 45 Units/L [facility] AST 13 10 - 45 Units/L [facility] Blood 02/14/2025 3:06 AM CDT 02/14/2025 3:30 AM CDT Claudio Friedman MD LAB BLOOD ORDERABLES Final R esult [facility] [address] Department [place] [address] * (ABNORMAL) Differential, auto (02/13/2025 7:46 AM CDT) Neutrophil abs 8.06(H) 1.50 - 6.50 K/cumm Imm gran abs 0.67(H) 0.00 - 0.10 K/cumm [facility] Lymphocyte abs 2.04 0.80 - 3.30 K/cumm [facility] Monocyte abs 0.91(H) 0.20 - 0.80 K/cumm [facility] Eosinophil abs 0.12 0.00 - 0.50 K/cumm [facility] Basophil abs 0.07 0.00 - 0.10 K/cumm [facility] Neutrophil pct 67.9 % [facility] Comment: Interpretive Data Percent cell count reference ranges are not reported, since discordance with absolute values may lead to misinterpretation of CBC data. Current Interpretive Data was last revised on 2017. Imm gran pct 5.6 % [facility] Comment: Interpretive Data Percent cell count reference ranges are not reported, since discordance with absolute values may lead to misinterpretation of CBC data. Current Interpretive Data was last revised on 2017. Lymphocyte pct 17.2 % [facility] Comment: Interpretive Data Percent cell count reference ranges are not reported, since discordance with absolute values may lead to misinterpretation of CBC data. Current Interpretive Data was last revised on 2017. Monocyte pct 7.7 % [facility] Comment: Interpretive Data Percent cell count reference ranges are not reported, since discordance with absolute values may lead to misinterpretation of CBC data. Current Interpretive Data was last revised on 2017. Eosinophil pct 1.0 % [facility] Comment: Interpretive Data Percent cell count reference ranges are not reported, since discordance with absolute values may lead to misinterpretation of CBC data. Current Interpretive Data was last revised on 2017. Basophil pct 0.6 % [facility] Comment: Interpretive Data Percent cell count reference ranges are not reported, since discordance with absolute values may lead to misinterpretation of CBC data. Current Interpretive Data was last revised on 2017. Blood 02/13/2025 7:46 AM CDT 02/13/2025 8:07 AM CDT Piter Steele MD LAB BLOOD ORDERABLES Final Result [facility] [address] Department [place] [address] * (ABNORMAL) CBC with auto differential (02/13/2025 7:46 AM CDT) WBC 11.87(H) 3.80 - 9.90 K/cumm Hgb 11.5(L) 11.9 - 15.5 g/dL [facility] Hct 35.5(L) 35.6 - 45.5 % [facility] Plt 363 150 - 400 K/cumm [facility] MPV 9.2 9.1 - 12.3 fL [facility] RBC 3.67(L) 3.90 - 5.20 M/cumm [facility] MCV 96.7(H) 81.3 - 96.4 fL [facility] MCH 31.3 27.1 - 33.3 pg [facility] MCHC 32.4 32.3 - 35.7 g/dL [facility] RDW CV 12.7 11.1 - 14.9 % [facility] RDW SD 45.3 35.7 - 48.1 fL [facility] NRBC abs 0.00 0.00 - 0.01 K/cumm [facility] Blood 02/13/2025 7:46 AM CDT 02/13/2025 8:07 AM CDT us Piter Steele MD LAB BLOOD ORDERABLES Final Result [facility] [address] Department [place] [address] * eGFR (02/13/2025 6:17 AM CDT) eGFR >90 >=60 mL/min/1. 73 [...] ORDERABLES Final R esult Performing Organization Address [facility] Co de Phone Number [place] [phone] [place] [address] * Vancomycin level trough Draw level before vancomycin is administered. (02/13/2025 6:17 AM CDT) [facility] Vancomycin trough 17.1 10.0 - 20.0 mcg/mL Blood 02/13/2025 6:17 AM CDT 02/13/2025 6:18 AM CDT Narrative [facility] - 02/13/2025 6:48 AM CDT Draw level before vancomycin is administered. Piter Steele MD LAB BLOOD ORDERABLES Final Result Performing Organization Address [facility] de Phone Number [address] [address] * (ABNORMAL) Comprehensive metabolic panel (02/13/2025 6:17 AM CDT) [facility] Sodium 134(L) 135 - 145 mmol/L Potassium, pl 4.0 3.3 - 4.9 mmol/L [facility] Chloride 103 97 - 110 mmol/L [facility] CO2 25 22 - 32 mmol/L [facility] Anion gap 6 2 - 15 mmol/L [facility] BUN 7 6 - 25 mg/dL [facility] Creatinine 0.57(L) 0.60 - 1.10 mg/dL [facility] Glucose 97 70 - 199 mg/dL [facility] Comment: Interpretive Data Fasting glucose >/= 126 [...] 2022. Calcium 8.4(L) 8.5 - 10.3 mg/dL [facility] Bilirubin, total 0.2 0.1 - 1.2 mg/dL [facility] Protein, pl 4.8(L) 6.5 - 8.5 g/dL [facility] Albumin 2.1(L) 3.5 - 5.0 g/dL [facility] Alk phos 132(H) 40 - 130 Units/L [facility] ALT 12 7 - 45 Units/L [facility] AST 11 10 - 45 Units/L [facility] Blood 02/13/2025 6:17 AM CDT 02/13/2025 6:18 AM CDT us Claudio Friedman MD LAB BLOOD ORDERABLES Final R esult [facility] [address] Department [place] [address] * XR Chest 1 View (02/13/2025 6:07 AM CDT) Anatomical Region Laterality Modality Body, Chest N/A Computed Radiogr aphy 02/13/2025 8:19 AM CDT Narrative 02/13/2025 8:20 AM CDT EXAM DESCRIPTION: XR CHEST 1 VIEW REASON FOR STUDY: Follow up of right chest tube, pleural effusion Transfer from [facility] 02/10 with right-sided chest pain. 02/11 Ct [...] 8:20 AM - Electronically signed by Giacomo LOONEY T: Report ID: [id number] Reading Location: [id number] Procedure Note Giacomo Araiza MD - 02/13/2025 EXAM DESCRIPTION: XR CHEST 1 VIEW REASON FOR STUDY: Follow up of right chest tube, pleural effusion Transfer from [facility] 02/10 with right-sided chest pain. 02/11Ct chest [...] 8:20 AM - Electronically signed by Giacomo LOONEY T: Report ID: [id number] Reading Location: [id number] Ronny Boykin MD IMG XR PROCEDURES Final [...] and blunt dissection was performed. A 10 [place]alese pigtail catheter was then advanced directly into [...] 3:20 PM - Electronically signed by Ashok MARQUEZ T: Report ID: [id number] Reading Location: [id number] Procedure Note Ashok Gonzalez MD - 02/12/2025 [...] and blunt dissection was performed. A 10 [place]egalese pigtail catheter was then advanced directly into [...] Ashok Gonzalez M.D. KR T: Report ID: [id number] Reading Location: [id number] Piter Steele MD IMG CT PROCEDURES Fi [...] revised on 2019. Neutrophils, fld 66 % [facility] Comment:degenerated nuclei n oted Lymphs, fld 18 % [facility] Comment:degenerated nuclei n oted Monocyte, fld 15 % [facility] Comment:degenerated nuclei n oted Macrophages, fld 1 % [facility] Comment:degenerated nuclei n oted Fluid 02/12/2025 1:55 PM CDT 02/12/2025 2:31 PM CDT Ronny Boykin MD LAB BODY FLUIDS AND STOOLS O RDERABLES Final Result Performing Organization Address [facility] de Phone Number [facility] [address] [place] [address] * Cell count w/rflx diff, body fluid (02/12/2025 1:55 PM CDT) Specimen type, fld Pleural Color, fld Chio [facility] Clarity, fld Cloudy [facility] Nucleated cells, fld 12,365 /cumm [facility] Comment: Interpretive Data Unless otherwise specified, the [...] Edited Result - Final Performing Organization Address [facility] Co de Phone Number [facility] [address] [place] [address] * Mycology (fungal) culture Pleural fluid Pleural (02/12/2025 1:55 PM CDT) Report Final Report: No growth of fungus Comment:Testing performed by : [facility], [address] [place]., [address] Pleural fluid (Pleural) 02/12/2025 1:55 PM CDT 02/12/2025 5:53 PM CDT Narrative [facility] TUCKER - 03/12/2025 8:14 AM CDT Testing performed by [facility] ([phone]). us Ronny Boykin MD LAB MICROBIOLOGY - GENERAL O RDERABLES Final Result [facility] [address] Department [place] [address] * Aerobic and anaerobic culture and gram stain Pleural fluid Pleural (02/12/2025 1:55 PM CDT) Direct Specimen Exam Stain: Cytospin Gram stain shows: Moderate polymorphonuclear leukocytes seen. Other cellular material present. No organisms seen. Comment:Testing performed by : [facility], [address] [facility] [place] [address] Report Final Report: No growth [facility] TUCKER Comment:Testing performed by : [facility], [address] [place]., [address] Pleural fluid (Pleural) 02/12/2025 1:55 PM CDT 02/12/2025 5:53 PM CDT Narrative [facility] TUCKER - 02/16/2025 10:43 AM CDT Testing performed by [facility] ([phone]) Specimens submitted from normally sterile body sites [...] O RDERABLES Final Result Performing Organization Address [facility] Co de Phone Number [facility] [address] [place] [address] * Triglycerides, body fluid (02/12/2025 1:55 PM CDT) Specimen type, fld Pleural Triglycerides, fld 54 mg/dL [facility] Comment: The above specimen type is not [...] ascites. References: Pleural Fluid characteristics of Chylothorax. [facility] Proceedings. August 2008; 84(2):129-133 Jani Textbook of Clinical Chemistry and Molecular Diagnostics, Sixth Edition. Elsevier Press. 2018. Chapter 43, Body Fluids, p. 925 [employer] Test directory, Body Fluid Reference Intervals and/or Interpretative Information. [email or web address]/bodyfluids [facility]. Practical Guide to the Analytical Validation of Body Fluid Chemistry Testing. September 2012. 1-9. Current Interpretive Data was last revised 2019. Fluid 02/12/2025 1:55 PM CDT 02/12/2025 2:31 PM CDT Ronny Boykin MD LAB BODY FLUIDS AND STOOLS O RDERABLES Final Result Performing Organization Address [facility] Co de Phone Number [facility] [address] [facility] [place] [address] * Protein, body fluid (02/12/2025 1:55 PM CDT) Specimen type, fld Pleural Protein, fld 3.6 g/dL [facility] Comment: The above specimen type is not [...] 1:55 PM CDT 02/12/2025 2:31 PM CDT us Ronny Boykin MD LAB BODY FLUIDS AND STOOLS O RDERABLES Final Result Performing Organization Address [facility] Co de Phone Number [facility] [address] Department [place] [address] * Lactate dehydrogenase, body fluid (02/12/2025 1:55 PM CDT) Specimen type, fld Pleural LD, fld 3,600 Units/L [facility] Comment: The above specimen type is not [...] 1:55 PM CDT 02/12/2025 2:31 PM CDT us Ronny Boykin MD LAB BODY FLUIDS AND STOOLS O RDERABLES Final Result Performing Organization Address City/[facility]/ZIP Co de Phone Number [facility] TUCKER [address] Department [place] [address] * Glucose, body fluid (02/12/2025 1:55 PM CDT) Specimen type, fld Pleural Body site, fld Pleural fluid, right [facility] TUCKER Glucose, fld <2 mg/dL [facility] Comment: The above specimen type is not [...] and Management. Anibal Clin J Med 2005;72:854-72. [employer] Test directory, Body Fluid Reference Intervals and/or Interpretative Information. [email or web address]/bodyfluids August ALMAZAN et al. Pancreatic cyst fluid glucose: rapid, inexpensive, and accurate diagnosis of mucinous pancreatic cysts. Surgery 2018;163:600-5. Yvan CLEMENS et al. Differential diagnosis of pancreatic cysts: A prospective study on the role of intra-cystic glucose concentration. Digestive Liver Dis 2020;52:1026-32. Current Interpretive Data was last revised 2021. Fluid 02/12/2025 1:55 PM CDT 02/12/2025 2:31 PM CDT Narrative [facility] - 02/12/2025 4:17 PM CDT Body Fluid Type->Pleural Ronny Boykin MD LAB BODY FLUIDS AND STOOLS O RDERABLES Final Result Performing Organization Address [facility] Co de Phone Number CAROLE [address] [place] [address] * pH, Pleural Fluid (02/12/2025 1:55 PM CDT) Body site, fld Pleural fluid, right Comment:Testing performed by : [facility], [address] [place]., [address] pH, fld 6.84 [facility] Comment: The above specimen type is not [...] was last revised 2019. Testing performed by: [facility], [address] [place]., [address] Fluid 02/12/2025 1:55 PM CDT 02/12/2025 3:26 PM CDT Ronny Boykin MD LAB BODY FLUIDS AND STOOLS O RDERABLES Final Result Performing Organization Address [facility] Co de Phone Number CARO[facility] [address] [place] [address] * eGFR (02/12/2025 6:36 AM CDT) eGFR [...] BLOOD ORDERABLES Final Result Performing Organization Address City/State/[facility] Co de Phone Number [place] [address] Department [place] [address] * (ABNORMAL) Differential, auto (02/12/2025 6:36 AM CDT) Neutrophil abs 10.03(H) 1.50 - 6.50 K/cumm Imm gran abs 0.56(H) 0.00 - 0.10 K/cumm [facility] Lymphocyte abs 2.14 0.80 - 3.30 K/cumm [facility] Monocyte abs 1.11(H) 0.20 - 0.80 K/cumm [facility] Eosinophil abs 0.19 0.00 - 0.50 K/cumm [facility] Basophil abs 0.05 0.00 - 0.10 K/cumm [facility] Neutrophil pct 71.2 % [facility] Comment: Interpretive Data Percent cell count reference ranges are not reported, since discordance with absolute values may lead to misinterpretation of CBC data. Current Interpretive Data was last revised on 2017. Imm gran pct 4.0 % [facility] Comment: Interpretive Data Percent cell count reference ranges are not reported, since discordance with absolute values may lead to misinterpretation of CBC data. Current Interpretive Data was last revised on 2017. Lymphocyte pct 15.2 % [facility] Comment: Interpretive Data Percent cell count reference ranges are not reported, since discordance with absolute values may lead to misinterpretation of CBC data. Current Interpretive Data was last revised on 2017. Monocyte pct 7.9 % [facility] Comment: Interpretive Data Percent cell count reference ranges are not reported, since discordance with absolute values may lead to misinterpretation of CBC data. Current Interpretive Data was last revised on 2017. Eosinophil pct 1.3 % [facility] Comment: Interpretive Data Percent cell count reference ranges are not reported, since discordance with absolute values may lead to misinterpretation of CBC data. Current Interpretive Data was last revised on 2017. Basophil pct 0.4 % [facility] Comment: Interpretive Data Percent cell count reference ranges are not reported, since discordance with absolute values may lead to misinterpretation of CBC data. Current Interpretive Data was last revised on 2017. Blood 02/12/2025 6:36 AM CDT 02/12/2025 6:42 AM CDT us Piter Steele MD LAB BLOOD ORDERABLES Final Result [facility] [address] Department [place] [address] * (ABNORMAL) CBC with auto differential (02/12/2025 6:36 AM CDT) WBC 14.08(H) 3.80 - 9.90 K/cumm Hgb 11.8(L) 11.9 - 15.5 g/dL [facility] Hct 36.1 35.6 - 45.5 % [facility] Plt 377 150 - 400 K/cumm [facility] MPV 9.3 9.1 - 12.3 fL [facility] RBC 3.72(L) 3.90 - 5.20 M/cumm [facility] MCV 97.0(H) 81.3 - 96.4 fL [facility] MCH 31.7 27.1 - 33.3 pg [facility] MCHC 32.7 32.3 - 35.7 g/dL [facility] RDW CV 12.7 11.1 - 14.9 % [facility] RDW SD 45.2 35.7 - 48.1 fL [facility] NRBC abs 0.00 0.00 - 0.01 K/cumm [facility] Blood 02/12/2025 6:36 AM CDT 02/12/2025 6:42 AM CDT Piter Steele MD LAB BLOOD ORDERABLES Final Result Performing Organization Address [facility] de Phone Number [address] [place] [address] * (ABNORMAL) aPTT (02/12/2025 6:36 AM CDT) aPTT 38(H) 22 - 37 sec Comment: Ref Range High Interpretive data aPTT test has not been evaluated for monitoring heparin therapy. The anti-Xa is the preferred test. Current interpretive data was last revised on 2019. Blood 02/12/2025 6:36 AM CDT 02/12/2025 6:42 AM CDT Piter Steele MD LAB BLOOD ORDERABLES Final Result Performing Organization Address [facility] de Phone Number [address] [address] * (ABNORMAL) Protime-INR (02/12/2025 6:36 AM CDT) PT 12.10 12.00 - 14.60 sec INR 0.89(L) 0.90 - 1.20 [facility] Comment: Ref Range High Interpretive data Oral [...] BLOOD ORDERABLES Final Result Performing Organization Address [facility] Co de Phone Number [address] [address] * Vancomycin level trough (02/12/2025 6:36 AM CDT) Pathologist [facility] Vancomycin trough 15.3 10.0 - 20.0 mcg/mL Blood 02/12/2025 6:36 AM CDT 02/12/2025 6:42 AM CDT Quincy Goyal MD LAB BLOOD ORDERABLES Final Resu lt Performing Organization Address [facility] de Phone Number [address] [address] * (ABNORMAL) Comprehensive metabolic panel (02/12/2025 6:36 AM CDT) [facility] Sodium 136 135 - 145 mmol/L Potassium, pl 3.7 3.3 - 4.9 mmol/L [facility] Chloride 103 97 - 110 mmol/L [facility] CO2 23 22 - 32 mmol/L [facility] Anion gap 10 2 - 15 mmol/L [facility] BUN 10 6 - 25 mg/dL [facility] Creatinine 0.58(L) 0.60 - 1.10 mg/dL [facility] Glucose 86 70 - 199 mg/dL [facility] Comment: Interpretive Data Fasting glucose >/= 126 [...] 2022. Calcium 8.8 8.5 - 10.3 mg/dL [facility] Bilirubin, total 0.2 0.1 - 1.2 mg/dL [facility] Protein, pl 5.2(L) 6.5 - 8.5 g/dL [facility] Albumin 2.3(L) 3.5 - 5.0 g/dL [facility] Alk phos 157(H) 40 - 130 Units/L [facility] ALT 13 7 - 45 Units/L [facility] AST 12 10 - 45 Units/L [facility] Blood 02/12/2025 6:36 AM CDT 02/12/2025 6:42 AM CDT Piter Steele MD LAB BLOOD ORDERABLES Final Result Performing Organization Address [facility]/ZIP Co de Phone Number [address] [place] [address] * HIV 1/2 Antibody plus p24 Antigen Blood (02/11/2025 9:51 PM CDT) HIV 1/2 ab + p24 ag Nonreactive Nonreactive Comment:Nonreactive for HIV- 1 antigen and HIV-1/HIV-2 antibodies. No laboratory evidence of HIV infection. If acute HIV infection is suspected, consider testing for HIV-1 RNA. Current interpretive data was last revised on 22. Blood 02/11/2025 9:51 PM CDT 02/11/2025 10:05 PM CDT us Claudio Friedman MD LAB MICROBIOLOGY - GENERAL O RDERABLES Final Result Performing Organization Address City/[facility]/ZIP Co de Phone Number [address] [place] [address] * Blood culture Blood (02/11/2025 7:08 PM CDT) Report Final Report: No growth Comment:Testing performed by : [facility], [address] [facility] [place]., [address] Blood 02/11/2025 7:08 PM CDT 02/11/2025 11:51 PM CDT Narrative CAROLE - 02/16/2025 7:00 AM CDT From a [...] performance characteristics have been verified by the [facility]. For questions about this culture, contact the Microbiology Laboratory at [phone]. Interpretive data was last revised on 24. us Claudio Friedman MD LAB MICROBIOLOGY - GENERAL O RDERABLES Final Result CAROLE [address] [facility] [facility] Department of Laboratories [place], [place] [id number] * Blood culture Blood (02/11/2025 7:03 PM CDT) Report Final Report: No growth Comment:Testing performed by : [facility], [address] [facility] [place]., [address] Blood 02/11/2025 7:03 PM CDT 02/11/2025 11:51 PM CDT Narrative CAROLE - 02/16/2025 7:00 AM CDT Collection->Peripheral 1. Blood [...] performance characteristics have been verified by the [facility]. For questions about this culture, contact the Microbiology Laboratory at [phone]. Interpretive data was last revised on 24. Claudio Friedman MD LAB MICROBIOLOGY - GENERAL O RDERABLES Final Result Performing Organization Address City/[facility]/ZIP Co de Phone Number CAROLE [address] [employer] [place], [place] [id number] * (ABNORMAL) Erythrocyte sedimentation rate (02/11/2025 3:40 PM CDT) Erythrocyte sedimentation rate 55(H) 1 - 20 mm/hr Blood 02/11/2025 3:40 PM CDT 02/11/2025 3:55 PM CDT Ronny Boykin MD LAB BLOOD ORDERABLES Final R esult Performing Organization Address City/[facility] Co de Phone Number CAROLE [address] [place] [address] [place] [address] * (ABNORMAL) Protime-INR (02/11/2025 3:40 PM CDT) PT 16.60(H) 12.00 - 14.60 sec Comment:Ref Range High INR 1.33(H) 0.90 - 1.20 [facility] Comment: Ref Range High Interpretive data Oral anticoagulant therapeutic ranges: Venous thromboembolism prophylaxis or treatment: 2.0-3.0 CARDIOLOGY Standard range: 2.0-3.0 High-intensity range: 2.5-3.5 Refer to indication-specific guidelines for appropriate target ranges for prosthetic heart valve replacement. Current interpretive data was last revised on 2019. Blood 02/11/2025 3:40 PM CDT 02/11/2025 3:55 PM CDT Ronny Boykin MD LAB BLOOD ORDERABLES Final R esult [facility] [address] Department [place] [address] * (ABNORMAL) CBC without differential (02/11/2025 3:40 PM CDT) WBC 15.26(H) 3.80 - 9.90 K/cumm Hgb 11.5(L) 11.9 - 15.5 g/dL [facility] Hct 34.5(L) 35.6 - 45.5 % [facility] Plt 333 150 - 400 K/cumm [facility] MPV 9.3 9.1 - 12.3 fL [facility] RBC 3.68(L) 3.90 - 5.20 M/cumm [facility] MCV 93.8 81.3 - 96.4 fL [facility] MCH 31.3 27.1 - 33.3 pg [facility] MCHC 33.3 32.3 - 35.7 g/dL [facility] RDW CV 12.4 11.1 - 14.9 % [facility] RDW SD 42.8 35.7 - 48.1 fL [facility] NRBC abs 0.00 0.00 - 0.01 K/cumm [facility] Blood 02/11/2025 3:40 PM CDT 02/11/2025 3:55 PM CDT Piter Steele MD LAB BLOOD ORDERABLES Final Result Performing Organization Address [facility] de Phone Number CAROLE [address] [address] * Hemoglobin A1c (02/11/2025 3:40 PM CDT) Hgb A1C 5.4 4.0 - 5.6 % Estimated Average Glucose 108 mg/dL MAXIJANI Comment: The ADA recommends reporting an estimated Average Glucose (eAG) with all Hemoglobin A1c results using the equation derived from a study of 507 normal and diabetic adults. Minority populations were underrepresented and children were not included. (Diabetes Care 31:5321-0321, 2008). The eAG is not equivalent to a fasting glucose. Blood 02/11/2025 3:40 PM CDT 02/11/2025 3:55 PM CDT Piter Steele MD LAB BLOOD ORDERABLES Final Result Performing Organization Address [facility] de Phone Number CAROLE [address] [address] * Cytology (02/11/2025 2:46 PM CDT) Pleura (Cytology) 02/11/2025 2:46 PM CDT 02/13/2025 6:47 AM CDT Narrative 02/16/2025 4:13 PM CDT EPIC results best viewed via link to PDF [facility] Surgical Pathology [place], [place] [id number] Note to Patients: This report may contain [...] Gender: F : 1980 (Age: 44) Address: [address] [place] [phone] Hospital #: [id number] Taken:02/11/2025 Received:02/13/2025 Reported: 02/16/2025 Patient Type: [facility] INPATIENT Service: Medical Location: Physician(s): MD Saul Bailey M.D. FINAL DIAGNOSIS A. Pleural fluid, right: - Negative for malignancy - Necroinflammatory debris Comments The cell block confirms the diagnosis. wp/02/16/2025 16:13 By this signature, I attest that [...] interpretation for this case was performed at [facility], Department of Surgical Pathology, [address] [facility], [place] [id number], [place] [address] CLIA # [id number] REPORT IMAGES AND SCANNED DOCUMENTS, IF INCLUDED, ONLY VIEWABLE IN PDF VERSION OF REPORT The performance characteristics of some immunohistochemical stains, in-situ hybridization and fluorescence in-situ hybridization tests and immunophenotyping by flow cytometry cited in this report (if any) were determined by the Surgical Pathology and Flow Cytometry Departments at [facility] as part of an ongoing food quality technician program and in compliance with federally mandated [...] Surgical Pathology and Flow Cytometry Departments of [facility]. It has not been cleared or approved by the U. S. Food and Drug Administration. Ronny Boykin MD LAB CYTOLOGY ORDERABLES Nanda l Result * CT Chest W Contrast (02/11/2025 [...] by Ashok Cheema M.D. T: Report ID: [id number] Reading Location: [id number] Procedure Note Ashok Cheema MD - 02/11/2025 [...] by Ashok Cheema M.D. T: Report ID: [id number] Reading Location: [id number] Piter Steele MD IMKiara CT PROCEDURES Fi nal Result * Blood culture Blood (02/11/2025 2:32 AM CDT) Report Final Report: No growth Comment:Testing performed by : [facility], [address] [facility], [place]., [address] Blood 02/11/2025 2:32 AM CDT 02/11/2025 5:08 AM CDT Narrative CAROLE - 02/15/2025 7:00 AM CDT Collection->Peripheral 1. [...] performance characteristics have been verified by the [facility]. For questions about this culture, contact the Microbiology Laboratory at [phone]. Interpretive data was last revised on 24. Quincy Goyal MD LAB MICROBIOLOGY - GENERAL ORDKan [facility] Final Result Performing Organization Address City/[facility]/ZIP Co de Phone Number CAROLE [address] [address] * eGFR (02/11/2025 2:28 AM CDT) eGFR [...] 2:28 AM CDT 02/11/2025 2:41 AM CDT Piter Steele MD LAB BLOOD ORDERABLES Final Result Performing Organization Address City/[facility]/ZIP Co de Phone Number CAROLE [address] [place] [address] * Blood culture Blood (02/11/2025 2:28 AM CDT) Report Final Report: No growth Comment:Testing performed by : [facility], [address] [facility], [place]., [address] Blood 02/11/2025 2:28 AM CDT 02/11/2025 5:08 AM CDT Seth TUCKER - 02/15/2025 7:00 AM CDT From a [...] performance characteristics have been verified by the [facility]. For questions about this culture, contact the Microbiology Laboratory at [phone]. Interpretive data was last revised on 24. Quincy Goyal MD LAB MICROBIOLOGY - GENERAL AZUCENA PETERSEN Final Result CAROLE [address] [facility] Department [place] [address] * hCG, blood, quantitative (02/11/2025 [...] MD LAB BLOOD ORDERABLES Final Resu lt [facility] [address] Department [place] [address] * (ABNORMAL) Basic metabolic panel (02/11/2025 2:28 AM CDT) Sodium 131(L) 135 - 145 mmol/L Potassium, pl 3.9 3.3 - 4.9 mmol/L [facility] Comment:Hemolyzed; Potassium value may be falsely elevated by as much as 1.0 mmol/L. Suggest redraw and reanalysis. Chloride 97 97 - 110 mmol/L [facility] CO2 23 22 - 32 mmol/L [facility] Anion gap 11 2 - 15 mmol/L [facility] BUN 17 6 - 25 mg/dL [facility] Creatinine 0.75 0.60 - 1.10 mg/dL [facility] Glucose 103 70 - 199 mg/dL [facility] Comment: Interpretive Data Fasting glucose >/= 126 [...] 2022. Calcium 8.5 8.5 - 10.3 mg/dL [facility] Blood 02/11/2025 2:28 AM CDT 02/11/2025 2:41 AM CDT Piter Steele MD LAB BLOOD ORDERABLES Final Result CERNER [facility] [address] [facility] Department [place] [address] from Last 3 Months Insurance [address] [place] [id number] [facility] [employer] [place] [address] [place] [phone] [employer] [place] [facility] BLUE ACCESS CHOICE [place] [facility] Advance Directives For more information, please contact: [phone] * Full Code (Latest Code Status on File) Date Activated Date Inactivated Comments 02/11/2025 1:28 AM 02/19/2025 4:37 PM Care Teams Flame Cutting Supervisor Relationship Specialty Start Date End Date Saul Ruelas MD PCP - General Family Medicine 08/25/20 Abiodun Red MD [address] [place] [address] Referring Physician Neurology 11/27/22 Issac Amador MD [facility] [place] [address] Consulting Physician Rheumatology 07/23/24 Kelly Jeronimo NP [address] [place] [address] Nurse Practitioner Pulmonary Disease 03/09/25 Ronny Boykin MD [address] [place] [address] Consulting Physician Pulmonary Disease 03/09/25
--- OUTSIDE RECORDS SUMMARY | 2025-04-04 14:02 | XMS_ITS | Encounter Summary ---
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 Gender Identity Not on file Sexual Orientation Not on file documented as of this encounter Plan of Treatment Upcoming Encounters Date Type Department Care Team (Late Contact Info) Description 05/27/2025 9:40 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 Office Visit [facility] - [address], [address] [place] [phone] Abiodun Red MD 3 [place] [address] 07/02/2025 2:00 PM 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 Office Visit [facility] Medical [facility] Multispecialty Care - [facility] [address] [facility], [address] [place] [address] Marine Glover APRN [address] [facility] [address] [place] [address] documented as of this encounter Visit Diagnoses Not on filedocumented in this encounter Additional Health Concerns Assessment Noted Time PHQ-9 Depression Total Score: 7 06/02/20 22 9:57 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
--- OUTSIDE RECORDS SUMMARY | 2025-04-04 14:02 | XMS_ITS | Patient Health Record ---
Author Organization [employer] [facility] Address [address] [facility] [address] [place] [address] Care Team Providers Care School Administrator Name Role Phone Miguel Marrero Primary Care [...] Notes Problem Obesity due to excess calories (663953881) Other obesity due to excess calories (E66.09) Active confirmed Problem Chronic pain syndrome (066942734) Chronic pain syndrome (G89.4) Active confirmed Problem Abnormal weight gain (421035975) Abnormal weight gain (R63.5) Active confirmed Problem History of bariatric surgical procedure (171049719) Bariatric surgery status (Z98.84) Active confirmed Problem Essential hypertension (91011750) Essential hypertension (I10) Active confirmed Problem Obstructive sleep apnea (42700200) Obstructive sleep apnea (G47.33) Active confirmed Problem Depressive disorder (disorder) (05122209) Depression, unspecified depression type (F32.9) Active confirmed Problem History of cerebrovascular accident (633384021) History of stroke (Z86.73) Active confirmed Plan Of Treatment No Information Insurance Providers Payer Name Payer Address Payer Phone Subscriber Number Group Number Insured Name Patient Relationship to Insured Coverage Start Date Coverage End Date WPS / [address] [place] [id number] PRIME/Damir Reynoso Spouse - patient is the [...]
--- OUTSIDE RECORDS SUMMARY | 2025-04-04 14:02 | XMS_ITS | Clinical Summary ---
Author Organization [facility] Address [address] [place] [address] Care Team Providers Care Smog Technician Name Role Phone Robert García MD Primary Care Provider + Allergies Active Allergy Reactions Criticality Noted Date Comments Lorazepam Other (see comment) 02/25/2025 Oxycodone Other (see comment) 02/25/2025 Zolpidem Other (see comment) 02/25/2025 Medications topiramate 50 MG Tab 100 in AM, 50 at bedtime Active VANISHPOINT SYR 3CC/25GX1 25G X 1 3 ML Misc Active SODIUM FLUORIDE, DENTAL GEL, 1.1 % Gel Active pregabalin 150 MG capsule pregabalin 150 mg capsule Active pilocarpine 5 MG tablet pilocarpine 5 mg tablet TAKE 1 TABLET BY MOUTH THREE TIMES DAILY NEEDED FOR LOW SALVIA Active omeprazole 20 MG capsule Active nebivolol (BYSTOLIC) 5 MG tablet Bystolic 5 mg tablet Active levothyroxine (SYNTHROID) 137 MCG tablet Synthroid 137 mcg tablet Active fluticasone propionate 50 MCG/ACT nasal spray Active fexofenadine 180 MG tablet fexofenadine 180 mg tablet 021 Active Eszopiclone 3 MG Tab 021 Active cyclobenzaprin e 10 MG tablet cyclobenzaprine 10 mg tablet 021 Active buprenorphine- naloxone 8-2 MG SL Tab SL tablet 1 tablet. Active atorvastatin 40 MG tablet atorvastatin 40 mg tablet Active ASPIRIN LOW DOSE 81 MG tablet 021 Active amitriptyline 25 MG tablet 021 Active methylPREDNISo ROLAND eaton, (MEDROL) 4 MG tabletIndicati ons:Status migrainosus Follow package directions 1 each 022 Active divalproex ER (DEPAKOTE ER) 250 MG 24 hr tabletIndicati ons:Migraine without aura, not intractable, without status migrainosus Take 1 tablet (250 mg total) by mouth daily. 30 tablet 11 022 Active escitalopram (LEXAPRO) 10 MG tablet Take 1 tablet (10 mg total) by mouth daily. Active lidocaine (LIDODERM) 5 % 023 Active divalproex ER (DEPAKOTE) 250 MG 24 hr tabletIndicati ons:Migraine without aura, not intractable, without status migrainosus TAKE 1 TABLET(250 MG) BY MOUTH DAILY 30 tablet 11 023 Active busPIRone (BUSPAR) 15 MG tablet Take 1 tablet (15 mg total) by mouth 3 (three) times daily. Active QUEtiapine (SEROQUEL) 25 MG tabletIndicati ons:Insomnia, unspecified type Take 1 tablet (25 mg total) by mouth nightly at bedtime. 30 tablet 5 025 Active QULIPTA tabletIndicati ons:Migraine without aura, not intractable, without status migrainosus TAKE 1 TABLET(60 MG) BY MOUTH DAILY 30 tablet 11 025 Active azithromycin (ZITHROMAX) 250 MG tablet Take 1 tablet (250 mg total) by mouth daily. 025 Active cycloSPORINE (RESTASIS) 0.05 % ophthalmic emulsion Apply 1 drop to eye 2 (two) times daily. Active clobetasol (TEMOVATE) 0.05 % ointment Apply 1 Application topically as needed. Active diclofenac sodium (VOLTAREN) 1 % gel Apply 2 g topically as needed. Active docusate sodium (COLACE) 100 MG capsule Take 1 capsule (100 mg total) by mouth as needed. Active hydrOXYzine (VISTARIL) 50 MG capsule Take 1 capsule (50 mg total) by mouth 4 (four) times daily as needed. Active meloxicam (MOBIC) 7.5 MG tablet Take 1 tablet (7.5 mg total) by mouth daily. Active Multiple Vitamins-Juab als (PRESERVISION AREDS 2) Cap Take 2 capsules by mouth daily. Active mupirocin (BACTROBAN) 2 % ointment Apply topically as needed. Active sertraline (ZOLOFT) 25 MG tablet Take 1 tablet (25 mg total) by mouth daily. Active ZEPBOUND 2.5 MG/0.5ML injection Inject 2.5 mg into the skin once a week. Active traZODone (DESYREL) 100 MG tablet Take 1 tablet (100 mg total) by mouth nightly at bedtime. Active tacrolimus (PROTOPIC) 0.1 % ointment Apply topically as needed. Active prochlorperazi ne (COMPAZINE) 5 MG tabletIndicati ons:Migraine without aura, not intractable, without status migrainosus Take 1 tablet (5 mg total) by mouth 2 (two) times a day. 10 tablet Active SUMAtriptan (IMITREX) 100 MG tabletIndicati ons:Other migraine without status migrainosus, not intractable Take 1 tablet (100 mg total) by mouth 2 (two) times daily as needed for Migraine. Take 1 tablet at onset of symptoms, may take 1 tablet 2 hours later. Max of 2 tablets in 24-hour period. 16 tablet Active ubrogepant (UBRELVY) 100 MG tabletIndicati ons:Migraine without aura, not intractable, without status migrainosus Take 1 tablet (100 mg total) by mouth 2 (two) times daily as needed. Max of 2 tablets (200 mg) in 24 hours 16 tablet Active AIMOVIG 70 MG/ML injection (autoinjector) Indications:Ch ronic migraine w/o aura w/o status migrainosus, not intractable ADMINISTER 1 ML UNDER THE SKIN EVERY 30 DAYS 1 mL 6 Active erenumab-aooe (AIMOVIG) 70 mg/mL injection (autoinjector) Indications:Ch ronic migraine w/o aura w/o status migrainosus, not intractable ADMINISTER 1 ML UNDER THE SKIN EVERY 30 DAYS 1 mL 6 025 2024 Discontinued SUMAtriptan (IMITREX) 100 MG tabletIndicati ons:Other migraine without status migrainosus, not intractable TAKE 1 TABLET BY MOUTH TWICE DAILY NEEDED FOR MIGRAINE. TAKE 1 TABLET BY MOUTH AT ONSET AND 1 TABLET 2 HOURS LATER. MAX OF 2 TABLETS IN 24 HOURS 16 tablet 11 025 2024 Discontinued(R eorder) acetaminophen (TYLENOL) 325 MG tablet Take 2 tablets (650 mg total) by mouth as needed. 025 2024 methylPREDNISo lone (MEDROL) 4 MG tabletIndicati ons:Migraine without aura, not intractable, without status migrainosus Take 1 tablet (4 mg total) by mouth daily for 7 days. 7 tablet 025 2024 Active Problems Problem Noted Date Diagnosed Date Abnormal weight gain 02/25/2025 ADD (attention deficit disorder) 02/25/2025 Overview (02/25/2025): Possibly. I just want to be evaluated. History of bariatric surgery 02/25/2025 Numbness of hand 02/25/2025 Other obesity due to excess calories 02/25/2025 Hypothyroidism 02/11/2025 Loculated pleural effusion 02/11/2025 Obesity (BMI 30-39.9) 02/11/2025 Polyarthralgia 11/25/2024 Sicca complex (HHS/HCC) 09/01/2024 Overview (02/25/2025): 09/01/24: CBC nl, CMP [...] neuroma of right foot 12/16/2018 Opioid dependence ([facility]) 11/06/2018 Sacroiliac joint pain 11/06/2018 Anxiety 10/08/2012 Stroke ([facility]) 10/08/2012 Chronic back pain 02/20/2010 Encounters Date Type Department Care Team Description 03/18/2025 [facility] [place] - [address], [address] [place] [phone] Abiodun Red MD Prior Authorization (Ubrelvy) 03/13/2025 Telephone [facility] - [address] [place] [address] Abiodun Red MD Medication Request 03/02/2025 MyChart Message Enc [address], Suite [facility] [place] [address] Abiodun Red MD Monster Migraine, Help! 02/25/2025 1:00 PM CDT Office Visit [facility] [address] [facility], [address] [place] [address] Abiodun Red MD Botox Procedure (Chronic migraine) 02/25/2025 Scan Tap 'n Tap SRVCS Scanned, [facility] 02/25/2025 Travel 01/26/2025 Scan [facility] INFO SRVCS Scanned, [facility] 01/12/2025 Scan [facility] INFO SRVCS Scanned, Doc [facility] from Last 3 Months Immunizations Immunization Administration [...] file Legal Sex Female 9:56 AM CORPORATE RESPONSIBILITY OFFICER Gender Identity Not on file Sexual Orientation [...] st Contact Info) Description 05/27/2025 9:40 AM CORPORATE RESPONSIBILITY OFFICER Office Visit [facility] Multispecialty Care - [address], [address] [place] [address] Abiodun Red MD [address] [facility] [place] [address] 07/02/2025 2:00 PM CORPORATE RESPONSIBILITY OFFICER Office Visit [facility] Multispecialty Care - [facility] [address] [facility], [address] [place] [phone] Marine Glover APRN [address] [facility] [facility] [address] [place] [address] Health Maintenance Due Date Last Done Comments [...] Vaccines Completed 01/21/2007, 09/14/2006, 07/11/2006 PHQ-2 (Physician Carson) Completed 08/27/2024 Meningococcal B Vaccine Aged Out No l onger eligible based on patient's age to complete this topic Meningococcal Vaccine Aged Out No bebeto emily eligible based on patient's age to complete this topic RSV Immunizations Under 20 Months Aged Out No longer eligible b ased on patient's age to complete this topic Insurance BLUE [employer]OSS BLUE [employer]IELD [facility] Care Teams Smog Technician Relationship Specialty Start Date End Date Robert García MD PCP - General 08/17/23
--- OUTSIDE RECORDS SUMMARY | 2025-04-04 14:02 | XMS_ITS | Encounter Summary ---
Author Organization [facility] Address [address] [place] [address] Care Team Providers Care Manager Of Supply Chain Name Role Phone Saul Ruelas MD Primary Care Provider [phone]- [phone] Robert García MD Primary Care Provider + Encounter Details Date Type Department Care Team (Late st Contact Info) Description 10/12/2020 Prep for Procedure [facility] [place] [address] [id number] Sujey Yap NP 3 [facility] [address] [place] [phone] (Work) Social History Tobacco Use Types Packs/Day [...] on file Legal Sex Female 9:56 AM SHEET METAL FORMER Gender Identity Not on file Sexual Orientation [...] st Contact Info) Description 05/27/2025 9:40 AM SHEET METAL FORMER Office Visit [facility] [address] [facility], [address] [place] [phone] Abiodun Red MD 3 [place] [address] 07/02/2025 2:00 PM SHEET METAL FORMER Office Visit [facility] [address] [facility], [address] [place] [phone] Marine Glover APRN 3 [facility] [address] [place] [address] documented as of this encounter Visit Diagnoses Not on filedocumented in this encounter Care Teams Manager Of Supply Chain Relationship Specialty Start Date End Date Saul Ruelas MD 3 [facility] [address] [place] [phone] PCP - General FAMILY PRACTICE 10/12/20 08/16/23 Robert García MD 3 [facility] [address] [place] [phone] PCP - General 08/17/23 documented as of this encounter
--- OUTSIDE RECORDS SUMMARY | 2025-04-04 14:02 | XMS_ITS | Encounter Summary ---
Author Organization [facility] Address [address] [place] [address] Care Team Providers Care Access Registrar Name Role Phone Robert García MD Primary Care Provider + Encounter Details Date Type Department Care Team (Latest Contact Info) Description 01/01/2025 [employer] Message [facility] [place] [address] [id number] [facility] Provider Pain Management Referral Social History Tobacco [...] on file Legal Sex Female 9:56 AM ELECTRIC MOTOR REPAIRMAN Gender Identity Not on file Sexual Orientation Not on file documented as of this encounter Plan of Treatment Upcoming Encounters Date Type Department Care Team (Late st Contact Info) Description 05/27/2025 9:40 AM ELECTRIC MOTOR REPAIRMAN Office Visit [facility] [address] [facility], [address] [place] [phone] Abiodun Red MD 3 [place] [address] 07/02/2025 2:00 PM ELECTRIC MOTOR REPAIRMAN Office Visit [facility] [address] [facility], [address] [place] [address] Marine Glover APRN 3 [facility] [address] [place] [address] documented as of this encounter Visit Diagnoses Not on filedocumented in this encounter Additional Health Concerns Assessment Noted Time PHQ-9 Depression Total Score: 7 06/02/20 22 9:57 AM ELECTRIC MOTOR REPAIRMAN documented as of this encounter Care Teams Access Registrar Relationship Specialty Start Date End Date Robert García MD PCP - General 08/17/23 documented as of this encounter
--- OUTSIDE RECORDS SUMMARY | 2025-04-04 14:03 | XMS_ITS | Clinical Summary ---
Author Organization [facility] Care Team Providers Care Cordwood Cutter Name Role Phone Unavailable Primary Care Provider [...]
--- OUTSIDE RECORDS SUMMARY | 2025-04-04 14:03 | XMS_ITS | Clinical Summary ---
Author Organization [facility] Address [address] [place] [address] Care Team Providers Care Foreign Car Mechanic Name Role Phone Unavailable Primary Care Provider Unavailabl e Source Comments [facility],non-owned Affiliates and Associated Physician Practices is amultiple site organization consisting of ambulatory clinics and hospital sitesin [place], [place], [place] and [place]. This disclosure is being madepursuant to the Care Everywhere program and may not contain all information available regarding this patient. Last updated 18.[facility] [place] Social History Tobacco Use Types Packs/Day Years [...] VACCINE (1 - 3-dose SCDM series) 2007 DEPRESSION SCREENING 07/16/2024 10/10/2022 COVID-19 VACCINE (3 - 2024-2 6 season) 2025 10/21/2020, 09/28/2020 INFLUENZA VACCINE (#1) 2025 ZOSTER VACCINE (1 [...] age to complete this topic Insurance [id number] [place] [id number] [facility] Address: [facility] [address] [place] [address] [place] [phone] [facility] SELF PAY NO INSURANCE Member Subscriber Plan / Payer (Ef fective for All Dates) Name:Holly Black Member ID:Not on file Relation to Subscriber:Not on file Subscriber ID:Not on file Payer ID:Not on file Group ID:Not on file Type:Self Pay Address: [facility] SELF PAY NO INSURANCE Member Subscriber Plan / Payer (Ef fective for All Dates) Name:Holly Black Member ID:Not on file Relation to Subscriber:Not on file Subscriber ID:Not on file Payer ID:Not on file Group ID:Not on file Type:Self Pay Address: [facility] SELF PAY NO INSURANCE Member Subscriber Plan / Payer (Ef fective for All Dates) Name:Holly Black Member ID:Not on file Relation to Subscriber:Not on file Subscriber ID:Not on file Payer ID:Not on file Group ID:Not on file Type:Self Pay Address: [place], [place]
--- OUTSIDE RECORDS SUMMARY | 2025-04-04 14:03 | XMS_ITS | Patient Health Record ---
Author Organization [facility] Address [address] [place], [place] [id number] Care Team Providers Care Microcomputer Support Specialist Name Role Phone KENYON HARRIS Unavailable [phone] Darci Woody Unavailable Unavailable Allergies Allergen (clinical drug ingredient) Drug/Non Drug Allergy documented on EMR Reaction Allergy Type Onset Date Status lorazepam Lorazepam other Drug Allergy Active oxycodone Oxycodone other Drug Allergy Active zolpidem Zolpidem other Drug Allergy Active Reason For Referral Reason [facility] ( S URGERY ) [address] 1 UN[address] / [facility] / [facility]. KLL Diagnosis 1 Tailor's bunion of r ight foot (M21.621) Referred Organization [facility] Referred Provider KENYON HARRIS Referred Address [address],[place], [place],[id number], Referred Provider Specialty Podiatry Referral Priority Routine Reason [facility] REFERRAL REQ [facility]ST ( APPOINTMENT: 01/22/2025 ) Diagnosis 1 Pain in right foot ( M79.671) Diagnosis 2 Left foot pain (M79. 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 Administered MMR Unknown 05/28/2009 Administered MMR Unknown 05/28/2009 Administered MMR Unknown 05/05/2019 Administered MMR Unknown 05/05/2019 Administered Novel [id number] Unknown 05/19/2009 Administered Novel [id number] Unknown 05/19/2009 Administered Pfizer-Biontech Covid-19 Vac cine [...] 07/27/2009 Administered Vital Signs Height-cm 177.80 cm 04/02/2025 Weight-kg 113.4 kg 02/05/2025 Height 70.00 in 04/02/2025 Weight 250 lbs 02/05/2025 BMI 35.87 kg/m2 02/05/2025 Encounters Encounter Location Date Provider [address] [place] [phone] 10/23/2024 KENYON HARRIS [facility] [place] [address] [place] [id number] 01/22/2025 KENYON HARRIS Tendinitis of right foot M77.51 ; Nondisplaced fracture of fifth metatarsal bone, left foot, subsequent encounter for fracture with routine healing S92.355D ; Pain in right foot M79.671 and Left foot pain M79.672 [facility] [place] [address] [place] [id number] 02/05/2025 KENYON HARRIS Tendinitis of right foot M77.51 ; Nondisplaced fracture of fifth metatarsal bone, left foot, subsequent encounter for fracture with routine healing S92.355D ; Pain in right foot M79.671 and Left foot pain M79.672 [facility] [place] [address] [place] [id number] 02/26/2025 KENYON HARRIS Nondisplaced fracture of fifth metatarsal bone, left foot, subsequent encounter for fracture with routine healing S92.355D and Left foot pain M79.672 [facility] [place] [facility] [address] [place] [id number] 03/19/2025 KENYON HARRIS Left foot pain M79.672 ; Nondisplaced fracture of fifth metatarsal bone, left foot, subsequent encounter for fracture with delayed healing S92.355G ; Tendinitis of right foot M77.51 and Pain in right foot M79.671 [facility] [place] [facility] [address] [place] [phone] 04/02/2025 KENYON HARRIS Left foot pain M79.672 ; Nondisplaced fracture of fifth metatarsal bone, left foot, subsequent encounter for fracture with delayed healing S92.355G ; Tendinitis of right foot M77.51 and Pain in right foot M79.671 [facility] [place] [address] [place] [id number] 04/24/2024 KENYON Jurado's bunion of right foot M21.621 ; Bunionette of left foot M21.622 and Pain in right foot M79.671 [facility] [place] [facility] [address] [place] [id number] 05/22/2024 KENYON HARRIS Tailor's bunion of right foot M21.621 ; Bunionette of left foot M21.622 ; Pain in right foot M79.671 and Left foot pain M79.672 [facility] [place] [facility] [address] [place] [id number] 06/26/2024 KENYON HARRIS Tailor's bunion of right foot M21.621 ; Bunionette of left foot M21.622 ; Pain in right foot M79.671 and Left foot pain M79.672 [facility] [place] [facility] [address] [place] [id number] 07/24/2024 KENYON HARRIS Tailor's bunion of right foot M21.621 ; Bunionette of left foot M21.622 ; Pain in right foot M79.671 and Left foot pain M79.672 [facility] [place] [address] [place] [id number] 08/14/2024 KENYON STEVEN Tailor's bunion of right foot M21.621 and Pain in right foot M79.671 [facility] [place] [address] [place] [address] [id number] 10/30/2024 KENYON STEVEN Tailor's bunion of right foot M21.621 ; Neoplasm of unspecified behavior of bone, soft tissue, and skin D49.2 ; Encounter for other specified surgical aftercare Z48.89 and Pain in right foot M79.671 [facility] [place] [facility] [address] [place] [id number] 11/06/2024 KENYON STEVEN Tailor's bunion of right foot M21.621 ; Neoplasm of unspecified behavior of bone, soft tissue, and skin D49.2 and Encounter for other specified surgical aftercare Z48.89 [facility] [place] [facility] [address] [place] [id number] 12/04/2024 KENYON STEVEN Adrien's bunionette, left M21.622 and Left foot pain M79.672 [facility] [place] [address] [place] [id number] 12/25/2024 KENYON HARRIS Nondisplaced fracture of fifth metatarsal bone, left foot, initial encounter for closed fracture S92.355A ; Tendinitis of right foot M77.51 ; Pain in right foot M79.671 and Left foot pain M79.672 [facility] [place] [address] [place], [place] [phone] 10/24/2024 KENYON HARRIS [facility] [place] [address] [place], [place] [phone] 03/19/2025 KENYON HARRIS [facility] [place] [address] [place], [place] [phone] 10/01/2024 KENYON HARRIS Assessments Encounter Date Diagnosis [...] Tendinitis of right foot (ICD-10 - M77.51) 02/26/2025 Nondisplaced fracture of fifth metatarsal bone, left foot, subsequent encounter for fracture with routine healing (ICD-10 - S92.355D) 02/26/2025 Left foot pain (ICD-10 - M79.672) 03/19/2025 Nondisplaced fracture of fifth metatarsal bone, left foot, subsequent encounter for fracture with delayed healing (ICD-10 - S92.355G) 03/19/2025 Left foot pain (ICD-10 - M79.672) 04/02/2025 Left foot pain (ICD-10 - M79.672) 02/05/2025 Nondisplaced fracture of fifth metatarsal bone, left foot, subsequent encounter for fracture with routine healing (ICD-10 - S92.355D) 04/02/2025 Nondisplaced fracture of fifth metatarsal bone, left foot, subsequent encounter for fracture with delayed healing (ICD-10 - S92.355G) 03/19/2025 Tendinitis of right foot (ICD-10 - M77.51) 01/22/2025 Pain in right foot (ICD-10 - [...] 01/22/2025 Left foot pain (ICD-10 - M79.672) 03/19/2025 Pain in right foot (ICD-10 - M79.671) 04/02/2025 Tendinitis of right foot (ICD-10 - M77.51) 02/05/2025 Left foot pain (ICD-10 - M79.672) 04/02/2025 Pain in right foot (ICD-10 - M79.671) 07/24/2024 Left foot pain (ICD-10 - M79.672) 06/26/2024 Left foot pain (ICD-10 - M79.672) 01/22/2025 Other Continue cam walker. 02/05/2025 Other Continue cam walker. 03/19/2025 Other Continue cam walker. Due to it not being healed after 3 months we will precert bone stim 04/02/2025 Other Continue cam walker and bone stim 08/14/2024 Other Patient with check with his [...] injected into the patients left 5th MTH 12/25/2024 Other Continue cam walker. Plan Of Treatment Next Appt Details Provider Name:KENYON KIM PATRIC, 04/16/2025 10:40:00 AM, [address], [facility], [place], [place], [phone], Insurance Providers Payer Name Payer Address Payer Phone Subscriber Number Group Number Insured Name Patient Relationship to Insured Coverage Start Date Coverage End Date [facility] ([facility] ATTN CLAIMS [address] [place] [address] [id number] ANGELICA BLACK Self - patient is the insured [facility] [address] [place] [address] [id number] GISSEL BLACK Spouse - patient is the spouse of the insured Medical (General) History Medical History History ICD Code anxiety high blood pressure insomnia
--- OUTSIDE RECORDS SUMMARY | 2025-04-04 14:03 | XMS_ITS | Encounter Summary ---
Author Organization [facility] Address [address] [place] [address] Care Team Providers Care Plumbing And Heating Contractor Name Role Phone Unavailable Primary Care Provider Unavailabl e Encounter Details Date Type Department Care Team (Late st Contact Info) Description 03/02/2022 Lab Requisition [facility] DermPath Lab [address] [place] [address] Niles George MD [address] [place] [address] Social History Tobacco Use Types Packs/Day Years [...] AM CDT) Case Report Dermatopathology Report Case: [id number] Authorizing Provider: Niles George MD Collected: 03/02/2022 12:00 AM Ordering Location: [facility] DermPath [facility] Received: 03/02/2022 05:15 PM Pathologist: [...] characteristic determined by the Dermatopathology Laboratory at [facility], directed by Dr. Miguel Viramontes. These tests need not be, and therefore are not, approved by the [place] Food and Drug Administration. The tests are used for clinical purposes. Billing Codes Specimen Charges Stain Charges 82772 1 2 6:16 PM CDT DERMATOPATHOLOGY LABORATORY Embedded Images 2 6:16 PM CDT DERMATOPATHOLOGY LABORATORY Pathology/Cytolog y TISSUE SPECIMEN FROM SKIN / Unknown 03/02/2022 03/02/2022 5:15 PM CDT Niles George MD LAB - PATHOLOGY/CYTOLOGY ORDERAB LES Final Result DERMATOPATHOLOGY LABORATORY [facility] - Department of Dermatology [address], [address] [phone] documented in this encounter Visit Diagnoses Not on filedocumented in this encounter
[2025-04-04 14:13] VITALS: BP 114/87; PULSE 101; RESP 18; TEMP 36.4; O2SAT 100
[2025-04-04 14:39] LABS: EDUAAPPEAR Clear; EDUABILI Negative (Negative); EDUABLOOD Negative (Negative); EDUACOLOR1 Yellow; EDUAGLUCOSE Negative (Negative); EDUAKETONE Negative (Negative); EDUALEUKO Negative (Negative); EDUANITRATE Negative (Negative); EDUAPH 7.0; EDUAPROTEIN Negative (Negative); EDUASPGRAVITY 1.015; EDUAUROBILI 0.2
[2025-04-04 21:19] LABS: Trichomonas Vag PCR NOT DETECTED (NOT DETECTE)
== END 2025-04-04 14:49 | disposition home or self-care (01) ==
PROVIDERS: Emergency Provider Nurse Practitioner Family; PCP Emergency Medicine
DX: N89.8 Other specified noninflammatory disorders of vagina (principal); R30.0 Dysuria; Z11.3 Encounter for screening for infections with a predominantly sexual mode of transmission; M79.7 Fibromyalgia; Z98.84 Bariatric surgery status; F41.9 Anxiety disorder, unspecified; Z86.73 Personal history of transient ischemic attack (TIA), and cerebral infarction without residual deficits; Z79.82 Long term (current) use of aspirin
CPT/HCPCS: 81003; 81513; 87070; 87086; 87491; 87591; 87661; 87798; 99213; G0463

== ENCOUNTER 2025-07-13 08:46 | Emergency (ER) | payer BC, OTHER, SELFPAY ==
--- OUTSIDE RECORDS SUMMARY | 2025-02-26 03:10 | XMS_ITS ---
Author Organization [facility] Address [address] [place], [place] [id number] Care Team Providers Care Water Main Pipe Layer Name Role Phone KENYON FORREST Unavailable [phone] Darci Woody Unavailable Unavailable Allergies Allergen (clinical drug ingredient) Drug/Non Drug Allergy documented on EMR Reaction Allergy Type Onset Date Status lorazepam Lorazepam other Drug Allergy Active oxycodone Oxycodone other Drug Allergy Active zolpidem Zolpidem other Drug Allergy Active REASON FOR VISIT Fracture check w/xrays Medications Medication SIG (Take, Route, Frequency, Duration) Notes Start Date End Date Status Meloxicam 7.5 MG Tablet Oral; Duration: 30 Days Active Atorvastatin Calcium 80 MG Tablet TAKE 1 TABLET BY MOUTH EVERY DAY Oral; Duration: 90 Days Active Atorvastatin Calcium 80 MG Tablet Oral; Duration: 90 Days Acti ve Aimovig 70 MG/ML Solution Auto-injector ADMINISTER 1 ML UNDER THE SKIN EVERY 30 DAYS Subcutaneous; Duration: 30 Days Active Levothyroxine Sodium 137 MCG Tablet Oral; Duration: 90 Days Acti ve Social History Social History Additional Details Category Social Info Options Details Migrated Social History Migrated Social History Smoking Status : Never used tobacco , History of tobacco use : Vital Signs Height 70.00 in 02/26/2025 Height-cm 177.80 cm 02/26/2025 Encounters Encounter Location Date Provider Diagnosis [facility] [address] [place], [place] [id number] 02/26/2025 KENYON FORREST Nondisplaced fracture of fifth metatarsal bone, left foot, subsequent encounter for fracture with routine healing S92.355D and Left foot pain M79.672 Assessments Encounter Date Diagnosis (ICD Code) Assessment Notes Treatment Notes Treatment Clinical Notes Section Notes 02/26/2025 Nondisplaced fracture of fifth metatarsal bone, left foot, subsequent encounter for fracture with routine healing (ICD-10 - S92.355D) 02/26/2025 Left foot pain (ICD-10 - M79.672) Plan Of Treatment Next Appt Details Provider Name:KENYON SPIVEY, 08/07/2025 11:30:00 AM, [address] [facility] [address], [place], [place], [id number], History and Physical Notes * HPI (History of Present Illness) Category Sub-Category Detail Notes Category Not es HPI Follow Up Visit Patient presents for follow up visit for fracture check on th eleft foot. Patient states it is much better and only hurts sometimes. , MA: KATHY Progress Notes * ANGELICA BLACK LDOB: 0 (45 yo F)Acc No.[id number]:02/26/2025 Patient: ANGELICA ADKINS Provider: Kan Forrest DPM :1980 A ge:44 Y S ex:Female Date:02/26/2025 Address:[address] [place] [address] [address] [id number] Subjective: * Chief Complaints: * F racture check w/xrays * HPI: H PI: Follow Up Visit P atient presents for follow up visit for fracture check on th eleft foot. Patient states it is much better and only hurts sometimes. , MA: KATHY. * Medical History: Anxiety High blood pressure Insomnia Medical History Verified * Surgical History: No Surgical History documented. Surgical History verified. * Hospitalization/Major Diagno stic Procedure: No Hospitalization Documented. Hospitalization Verified. * Family History: F ather: PRN - [...] disorder,,known absent , :: Arthritis,,known absent . F amily History Verified.. * Social History: M igrated Social History: M igrated Social History: Smoking Status : Never used tobacco , History of tobacco use :. S ocial History Verified. * Medications: T akingLevothyroxine Sodium 137 MCG Tablet Oral Aimovig 70 MG/ML Solution Auto- injector ADMINISTER 1 ML UNDER THE SKIN EVERY 30 DAYS Subcutaneous Atorvastatin Calcium 80 MG Tablet TAKE 1 TABLET BY MOUTH EVERY DAY Oral Meloxicam 7.5 MG Tablet Oral Atorvastatin Calcium 80 MG Tablet Oral Medication List reviewed and reconciled with the patientTaking Levothyroxine Sodium 137 MCG Tablet Oral Taking Aimovig 70 MG/ML Solution Auto-injector ADMINISTER 1 ML UNDER THE SKIN EVERY 30 DAYS Subcutaneous Taking Atorvastatin Calcium 80 MG Tablet TAKE 1 TABLET BY MOUTH EVERY DAY Oral Taking Meloxicam 7.5 MG Tablet Oral Taking Atorvastatin Calcium 80 MG Tablet Oral Medication List reviewed and reconciled with the patient * Allergies: Z olpidem: otherOxycodone: otherLorazepam: otheryesAllergies Verified. Objective: * Vitals: H t: 70.00 in, Ht-cm: 177.80 cm. Assessment: * Assessment: 1. N ondisplaced fracture of fifth metatarsal bone, left foot, subsequent encounter for fracture with routine healing - S92.355D (Primary) 2 . L eft foot pain - M79.672 ? Plan: * Immunizations: Immunization record has been reviewed and updated. * Procedure Codes: 7 3630 X-RAY EXAM OF FOOT, Modifiers: LT Billing Information: * Visit Code: 06614 Office Visit, Est Pt., Level 3. * Procedure Codes: 04196 X-RAY EXAM OF FOOT. Modifiers: LT * Electronic signature of KENYON FORREST DPM on 07/13/2025 at 08:53 AM [employer]OOFER Sign off status: Pending * Provider: Kan Forrest DPM Date: 0 02/26/2025 Generated for Dalia grace/Valeri/Mary on: 1 08:53 AM WH[employer] PROOFER
--- OUTSIDE RECORDS SUMMARY | 2025-03-19 03:10 | XMS_ITS ---
Author Organization [facility] Address [address] [place], [place] [id number] Care Team Providers Care Adult Day Care Worker Name Role Phone KENYON FORREST Unavailable [phone] Darci Woody Unavailable Unavailable Allergies Allergen (clinical drug ingredient) Drug/Non Drug Allergy documented on EMR Reaction Allergy Type Onset Date Status lorazepam Lorazepam other Drug Allergy Active oxycodone Oxycodone other Drug Allergy Active zolpidem Zolpidem other Drug Allergy Active REASON FOR VISIT fracture check with xrays Medications Medication SIG (Take, Route, Frequency, Duration) Notes Start Date End Date Status Clotrimazole-Betamethasone 1-0.05 % Cream 1 application Externally Twice a day; Duration: 2 weeks 03/19/2025 03/21/2025 Active Atorvastatin Calcium 80 MG Tablet TAKE 1 TABLET BY MOUTH EVERY DAY Oral; Duration: 90 Days Active Meloxicam 7.5 MG Tablet Oral; Duration: 30 [...] use : Vital Signs Height 70.00 in 03/19/2025 Height-cm 177.80 cm 03/19/2025 Encounters Encounter Location Date Provider Diagnosis [facility] [place] [address] [place], [place] [id number] 03/19/2025 KENYON FORREST Left foot pain M79.672 ; Nondisplaced fracture of fifth metatarsal bone, left foot, subsequent encounter for fracture with delayed healing S92.355G ; Tendinitis of right foot M77.51 and Pain in right foot M79.671 Assessments Encounter Date Diagnosis (ICD Code) Assessment Notes Treatment Notes Treatment Clinical Notes Section Notes 03/19/2025 Left foot pain (ICD-10 - M79.672) 03/19/2025 Nondisplaced fracture of fifth metatarsal bone, left foot, subsequent encounter for fracture with delayed healing (ICD-10 - S92.355G) 03/19/2025 Tendinitis of right foot (ICD-10 - M77.51) 03/19/2025 Pain in right foot (ICD-10 - M79.671) 03/19/2025 Other Continue cam walker. Due to it not being healed after 3 months we will precert bone stim Plan Of Treatment Medication Medication Name Sig Start Date Stop Date Notes Clotrimazole-Betamethasone 1-0.05 % Cream 1 application Externally Twice a day; Duration: 2 weeks 03/19/2025 03/21/2025 Treatment Notes Assessment Notes Other Continue cam walker. Due to it not being healed after 3 months we will precert bone stim Next Appt Details Provider Name:KENYON SPIVEY, 08/07/2025 11:30:00 AM, [address] [facility], [facility] [address], [place], [id number], History and Physical Notes * HPI (History of Present Illness) Category Sub-Category Detail Notes Category Not es HPI Follow Up Visit Patient presents for follow up visit for a fracture in the left foot. Patient states she still has pain. Patient states she also has peeling skin on bilateral feet that she is curious about. , MA: JMR Examination Category Sub-Category Detail Notes Category Not es X-Ray LEFT FOOT Three views of t he foot were obtained: Fracture noted at the 5th metatarsal base. The fracture is non-displaced X-rays show only minimal signs of healing. Constitutional Constitutional The patient is a wake, alert, well developed, well groomed and well nourished. Dermatologic Skin findings: Skin is warm, dr y, supple with no breaks in the skin. There is scaling in a moccasin distribution Nail pathology: Nails 1-5 bilateral are normal [...] bilaterally Temperature gradient: within normal limi ts Progress Notes * ANGELICA BLACK LDOB: 0 (45 yo F)Acc No.[id number]:03/19/2025 Patient: Michael ANGELICA VIDALES Estefany Provider: Kan Forrest DPM :1980 A ge:44 Y S ex:Female Date:03/19/2025 Address:[address] [place] [address] , [facility] Subjective: * Chief Complaints: * F racture check with xrays * HPI: H PI: Follow Up Visit P atient presents for follow up visit for a fracture in the left foot. Patient states she still has pain. Patient states she also has peeling skin on bilateral feet that she is curious about. , MA: KATHY. * Medical History: Anxiety [...] H t: 70.00 in, Ht-cm: 177.80 cm. * Examination: C onstitutional: Constitutional T he patient is awake, alert, well developed, well groomed and well nourished. . D ermatologic: Skin findings: S kin is warm, dry, supple with no breaks in the skin. There is scaling in a moccasin distribution . Nail pathology: N ails 1-5 bilateral [...] base. The fracture is non-displaced X-rays show only minimal signs of healing. . Assessment: * Assessment: 1. N ondisplaced fracture of fifth metatarsal bone, left foot, subsequent encounter for fracture with delayed healing - S92.355G (Primary) 2 . L eft foot pain - M79.672 ? 3 . T endinitis of right foot - M77.51 4 . P ain in right foot - M79.671 Plan: * Treatment: * Immunizations: Immunization record has been reviewed and updated. * Procedure Codes: 7 3630 X-RAY EXAM OF FOOT, Modifiers: RT Billing Information: * Visit Code: 47195 Office Visit, Est Pt., Level 3. * Procedure Codes: 64660 X-RAY EXAM OF FOOT. Modifiers: RT * Electronic signature of KENYON FORREST DPM on 07/13/2025 at 08:53 AM SOFTWARE QUALITY ANALYST Sign off status: Pending * Provider: Kan Forrest DPM Date: 0 03/19/2025 Generated for Dalia grace/Valeri/Ashwiniitting on: 1 08:53 AM SOFTWARE QUALITY ANALYST
--- OUTSIDE RECORDS SUMMARY | 2025-04-02 05:10 | XMS_ITS ---
Author Organization [facility] Address [address] [place], [place] [id number] Care Team Providers Care Type Copyist Name Role Phone KENYON FORREST Unavailable [phone] Darci Woody Unavailable Unavailable Allergies Allergen (clinical drug ingredient) Drug/Non Drug Allergy documented on EMR Reaction Allergy Type Onset Date Status lorazepam Lorazepam other Drug Allergy Active oxycodone Oxycodone other Drug Allergy Active zolpidem Zolpidem other Drug Allergy Active REASON FOR VISIT fracture check with xrays Medications Medication SIG (Take, Route, Frequency, Duration) Notes Start Date End Date Status Aimovig 70 MG/ML Solution Auto-injector ADMINISTER 1 ML UNDER THE SKIN EVERY 30 DAYS Subcutaneous; Duration: 30 Days Active Atorvastatin Calcium 80 MG Tablet TAKE 1 TABLET BY MOUTH EVERY DAY Oral; Duration: 90 Days Active Levothyroxine Sodium 137 MCG Tablet Oral; Duration: 90 Days Acti ve Meloxicam 7.5 MG Tablet Oral; Duration: 30 Days Active Atorvastatin Calcium 80 MG Tablet Oral; Duration: 90 Days Acti ve Social History Social History Additional Details Category Social Info Options Details Migrated Social History Migrated Social History Smoking Status : Never used tobacco , History of tobacco use : Vital Signs Height 70.00 in 04/02/2025 Height-cm 177.80 cm 04/02/2025 Encounters Encounter Location Date Provider Diagnosis [facility] [place] [address] [place], [place] [id number] 04/02/2025 KENYON FORREST Left foot pain M79.672 ; Nondisplaced fracture of fifth metatarsal bone, left foot, subsequent encounter for fracture with delayed healing S92.355G ; Tendinitis of right foot M77.51 and Pain in right foot M79.671 Assessments Encounter Date Diagnosis (ICD Code) Assessment Notes Treatment Notes Treatment Clinical Notes Section Notes 04/02/2025 Left foot pain (ICD-10 - M79.672) 04/02/2025 Nondisplaced fracture of fifth metatarsal bone, left foot, subsequent encounter for fracture with delayed healing (ICD-10 - S92.355G) 04/02/2025 Tendinitis of right foot (ICD-10 - M77.51) 04/02/2025 Pain in right foot (ICD-10 - M79.671) 04/02/2025 Other Continue cam walker and bone stim Plan Of Treatment Treatment Notes Assessment Notes Other Continue cam walker and bone stim Next Appt Details Provider Name:KENYON SPIVEY, 08/07/2025 11:30:00 AM, [address] [facility], [place], [place], [id number], History and Physical Notes * HPI (History of Present Illness) Category Sub-Category Detail Notes Category Not es HPI Follow Up Visit Patient presents for follow up visit for a fracture on the left foot. Patient states it still hurts and she is icing it and hs used the bone simulator for 5 days. , MA: JMR Examination Category Sub-Category Detail [...] ANGELICA BLACK LDOB: 0 (45 yo F)Acc No.[id number]:04/02/2025 Patient: ANGELICA ADKINS Provider: Kan Forrest DPM :1980 A ge:44 Y S ex:Female Date:04/02/2025 Address:[address] [facility] Subjective: * Chief Complaints: * F racture check with xrays * HPI: H PI: Follow Up Visit P atient presents for follow up visit for a fracture on the left foot. Patient states it still hurts and she is icing it and hs used the bone simulator for 5 days. , MA: KATHY. * Medical History: Anxiety [...] Modifiers: LT Billing Information: * Visit Code: 13371 Office Visit, Est Pt., Level 3. Modifiers: 25 * Procedure Codes: 36427 X-RAY EXAM OF FOOT. Modifiers: LT * Electronic signature of KENYON FORREST DPM on 07/13/2025 at 08:53 AM SUPER[employer] Sign off status: Pending * Provider: Kan Forrest DPM Date: 0 04/02/2025 Generated for Dalia grace/Valeri/Mary on: 1 08:53 AM [employer]
--- OUTSIDE RECORDS SUMMARY | 2025-04-16 04:40 | XMS_ITS ---
Author Organization [facility] Address [address] [place], [place] [phone] Care Team Providers Care Supervisor Tunnel Heading Name Role Phone KENYON FORREST Unavailable [phone] Darci Woody Unavailable Unavailable Allergies Allergen (clinical drug ingredient) Drug/Non Drug Allergy documented on EMR Reaction Allergy Type Onset Date Status lorazepam Lorazepam other Drug Allergy Active oxycodone Oxycodone other Drug Allergy Active zolpidem Zolpidem other Drug Allergy Active REASON FOR VISIT fracture check with xrays Medications Medication SIG (Take, Route, Frequency, Duration) Notes Start Date End Date Status Levothyroxine Sodium 137 MCG Tablet Oral; Duration: [...] use : Vital Signs Height 70.00 in 04/16/2025 Height-cm 177.80 cm 04/16/2025 Encounters Encounter Location Date Provider Diagnosis [facility] [place] [address] [place], [place] [phone] 04/16/2025 KENYON FORREST Left foot pain M79.672 ; Nondisplaced fracture of fifth metatarsal bone, left foot, subsequent encounter for fracture with delayed healing S92.355G ; Tendinitis of right foot M77.51 and Pain in right foot M79.671 Assessments Encounter Date Diagnosis (ICD Code) Assessment Notes Treatment Notes Treatment Clinical Notes Section Notes 04/16/2025 Left foot pain (ICD-10 - M79.672) 04/16/2025 Nondisplaced fracture of fifth metatarsal bone, left foot, subsequent encounter for fracture with delayed healing (ICD-10 - S92.355G) 04/16/2025 Tendinitis of right foot (ICD-10 - M77.51) 04/16/2025 Pain in right foot (ICD-10 - M79.671) 04/16/2025 Other Continue cam walker and bone stim. Old bone stim was worn out so a new one was dispensed Plan Of Treatment Treatment Notes Assessment Notes Other Continue cam walker and bone stim. Old bone stim was worn out so a new one was dispensed Next Appt Details Provider Name:KENYON KIM PATRIC, 08/07/2025 11:30:00 AM, [address] [facility], [place], [place], [phone], History and Physical Notes * HPI (History of Present Illness) Category Sub-Category Detail Notes Category Not es HPI Follow Up Visit Patient presents for follow up visit for a fracture on the left foot. Patient states it hurts alot on the bottom of her foot. She states she has been walking alot though. She states she is using the bone simulator 2x daily. , MA: JMR Examination Category Sub-Category Detail [...] ANGELICA BLACK LDOB: 0 (45 yo F)Acc No.[id number]:04/16/2025 Patient: ANGELICA ADKINS Provider: Kan Forrest DPM :1980 A ge:44 Y S ex:Female Date:04/16/2025 Address:[address] [place] Subjective: * Chief Complaints: * F racture check with xrays * HPI: H PI: Follow Up Visit P fransisco presents for follow up visit for a fracture on the left foot. Patient states it hurts alot on the bottom of her foot. She states she has been walking alot though. She states she is using the bone simulator 2x daily. , MA: KATHY. * Medical History: Anxiety [...] of healing. . Assessment: * Assessment: 1. L eft foot pain - M79.672 (Primary) 2 . N ondisplaced fracture of fifth metatarsal bone, left foot, subsequent encounter for fracture with delayed healing - S92.355G ? 3 . T endinitis of right foot - M77.51 4 . P ain in right foot - M79.671 Plan: * Treatment: * Immunizations: Immunization record has been reviewed and updated. * Procedure Codes: 7 3630 X-RAY EXAM OF FOOT, Modifiers: LT L4361 WALKING BOOT PNEUMATIC AND/OR VAC, Modifiers: LT Billing Information: * Visit Code: 71797 Office Visit, Est Pt., Level 3. Modifiers: 25 * Procedure Codes: 34077 X-RAY EXAM OF FOOT. Modifiers: LT L4361 WALKING BOOT PNEUMATIC AND/OR VAC. Modifiers: LT * Electronic signature of KENYON FORREST DPM on 07/13/2025 at 08:54 AM SALES OPERATIONS ANALYST Sign off status: Pending * Provider: Kan Forrest DPM Date: Generated for Dalia grace/Valeri/Mary on: 08:54 AM SALES OPERATIONS ANALYST
--- OUTSIDE RECORDS SUMMARY | 2025-04-28 04:40 | XMS_ITS ---
Author Organization [facility] Address [address] [place], [place] [id number] Care Team Providers Care Assistant Counsel Name Role Phone KENYON HARRIS Unavailable [phone] Darci Woody Unavailable Unavailable MIHIR SANDRA Unavailable [phone] Allergies Allergen (clinical drug ingredient) Drug/Non Drug Allergy documented on EMR Reaction Allergy Type Onset Date Status lorazepam Lorazepam other Drug Allergy Active oxycodone Oxycodone other Drug Allergy Active zolpidem Zolpidem other Drug Allergy Active REASON FOR VISIT *Fracture check with xray Medications Medication SIG (Take, Route, Frequency, Duration) Notes Start Date End Date Status Meloxicam 7.5 MG Tablet Oral; Duration: 30 Days Active Aimovig 70 MG/ML Solution Auto-injector ADMINISTER 1 ML UNDER THE SKIN EVERY 30 DAYS Subcutaneous; Duration: 30 Days Active Atorvastatin Calcium 80 MG Tablet TAKE 1 TABLET BY MOUTH EVERY DAY Oral; Duration: 90 Days Active Levothyroxine Sodium 137 MCG Tablet Oral; Duration: 90 Days Acti ve Atorvastatin Calcium 80 MG Tablet Oral; Duration: 90 Days Acti ve Social History Social History Additional Details Category Social Info Options Details Migrated Social History Migrated Social History Smoking Status : Never used tobacco , History of tobacco use : Vital Signs Height 70.00 in 04/28/2025 Weight 250 lbs 04/28/2025 BMI 35.87 kg/m2 04/28/2025 Height-cm 177.80 cm 04/28/2025 Weight-kg 113.4 kg 04/28/2025 Encounters Encounter Location Date Provider Diagnosis [facility] [address] [facility] [address] [place], [place] [address] 04/28/2025 MIHIR SANDRA Left foot pain M79.672 ; Nondisplaced fracture of fifth metatarsal bone, left foot, subsequent encounter for fracture with delayed healing S92.355G ; Tendinitis of right foot M77.51 and Pain in right foot M79.671 Assessments Encounter Date Diagnosis (ICD Code) Assessment Notes Treatment Notes Treatment Clinical Notes Section Notes 04/28/2025 Left foot pain (ICD-10 - M79.672) 04/28/2025 Nondisplaced fracture of fifth metatarsal bone, left foot, subsequent encounter for fracture with delayed healing (ICD-10 - S92.355G) Reviewed imaging with patient. She will need to continue CAM boot on her cruise. She understands and agrees. 04/28/2025 Tendinitis of right foot (ICD-10 - M77.51) resolved 04/28/2025 Pain in right foot (ICD-10 - M79.671) resolved Plan Of Treatment Treatment Notes Assessment Notes Nondisplaced fracture of fif th metatarsal bone, left foot, subsequent encounter for fracture with delayed healing Reviewed imaging with patient. She will need to continue CAM boot on her cruise. She understands and agrees. Tendinitis of right foot resolved Pain in right foot resolved Next Appt Details Follow Up: 2 Weeks, Reason: Provider Name:KENYON SPIVEY, 08/07/2025 11:30:00 AM, [address], [id number], History and Physical Notes * HPI (History of Present Illness) Category Sub-Category Detail Notes Category Not es HPI Follow Up Visit Patient presents for follow up visit for left foot fracture check. Patient states that there is minor pain., MA: OM Examination Category Sub-Category Detail Notes Category Not es X-Ray LEFT FOOT Three views of t he foot were obtained: Fracture noted at the 5th metatarsal base. The fracture is non-displaced X-rays show only minimal signs of healing. healing is noted at the medial and dorsal aspects and no healing has been noted at lateral and plantar aspects Constitutional Constitutional The patient is a wake, [...] palpation base of the left 5th metatarsal Tailors Bunion post surgical right foot, no pain on palpation or weight bearing. No longer tendon pain. Foot Structure The foot structure i s [...] ANGELICA BLACK LDOB: 0 (45 yo F)Acc No.[id number]:04/28/2025 Patient: Michael HERNÁNDEZANGELICA LABOY Estefany Provider: Jono SANDRA :1980 A ge:44 Y S ex:Female Date:04/28/2025 Address:[address] [place] [address] , [place], [facility] Subjective: * Chief Complaints: * * Fracture check with xray * HPI: H PI: Follow Up Visit P atient presents for follow up visit for left foot fracture check. Patient states that there is minor pain., MA: OM. * ROS: G eneral / Constitutional: Patient denies c hills, fever. P atient complains of?pain. C ardiovascular: Patient denies c hest pain. M usculoskeletal: Patient complains of b roken foot bone, slow to heal. ? P eripheral Vascular: Patient denies n o swelling now. S kin: Patient denies b ruising, swelling, discoloration . ? N eurologic: Patient denies N umbness, loss of use of extremity. ? * Medical History: Anxiety High blood pressure [...] tobacco , History of tobacco use :. Social History Verified. * Medications: T akingLevothyroxine Sodium [...] otherOxycodone: otherLorazepam: otheryesAllergies Verified. Objective: * Vitals: W t:250lbs, Wt-k.4 kg, [...] ase of the left 5th metatarsal . Tailors Bunion p ost surgical right foot, no pain on palpation or weight bearing. No longer tendon pain. Gait T here is normal gait noted [...] X-rays show only minimal signs of healing. healing is noted at the medial and dorsal aspects and no healing has been noted at lateral and plantar aspects. Assessment: * Assessment: 1. N ondisplaced fracture of fifth metatarsal bone, left foot, subsequent encounter for fracture with delayed healing - S92.355G (Primary) 2 . L eft foot pain - M79.672 ? 3 . T endinitis of right foot - M77.51 4 . P ain in right foot - M79.671 Plan: * Treatment: 2. T endinitis of right foot Notes: resolved 3. P ain in right foot Notes: resolved * Procedure Codes: 7 3630 X-RAY EXAM OF FOOT, Modifiers: LT * Follow Up: 2 Weeks Billing Information: * Visit Code: 59446 Office Visit, Est Pt., Level 3. * Procedure Codes: 33792 X-RAY EXAM OF FOOT. Modifiers: LT * Electronic signature of VIET SANDRA DPM on 07/13/2025 at 08:52 AM CUTTER ALUMINUM SHEET Sign off status: Pending * Provider: Jono SANDRA Date: Generated for Dalia grace/Valeri/Ashwiniitting on: 08:52 AM CUTTER ALUMINUM SHEET
--- OUTSIDE RECORDS SUMMARY | 2025-05-14 03:40 | XMS_ITS ---
Author Organization [facility] Address [address] [place], [place] [address] Care Team Providers Care Workers' Compensation Mediator Name Role Phone KENYON FORREST Unavailable [phone] Darci Woody Unavailable Unavailable Allergies Allergen (clinical drug ingredient) Drug/Non Drug Allergy documented on EMR Reaction Allergy Type Onset Date Status lorazepam Lorazepam other Drug Allergy Active oxycodone Oxycodone other Drug Allergy Active zolpidem Zolpidem other Drug Allergy Active REASON FOR VISIT *Fracture check with xrays Medications Medication SIG (Take, Route, Frequency, Duration) Notes Start Date End Date Status Atorvastatin Calcium 80 MG Tablet Oral; Duration: 90 Days Acti ve Levothyroxine Sodium 137 MCG Tablet Oral; Duration: 90 Days Acti ve Aimovig 70 MG/ML Solution Auto-injector ADMINISTER 1 ML UNDER THE SKIN EVERY 30 DAYS Subcutaneous; Duration: 30 Days Active Atorvastatin Calcium 80 MG Tablet TAKE 1 TABLET BY MOUTH EVERY DAY Oral; Duration: 90 Days Active Meloxicam 7.5 MG Tablet Oral; Duration: 30 Days Active Social History Social History Additional Details Category Social Info Options Details Migrated Social History Migrated Social History Smoking Status : Never used tobacco , History of tobacco use : Vital Signs Height 70.00 in 05/14/2025 Height-cm 177.8 cm 05/14/2025 Encounters Encounter Location Date Provider Diagnosis [facility] [place] [address] [place], [place] [address] 05/14/2025 KENYON FORREST Left foot pain M79.672 ; Nondisplaced fracture of fifth metatarsal bone, left foot, subsequent encounter for fracture with delayed healing S92.355G ; Tendinitis of right foot M77.51 and Pain in right foot M79.671 Assessments Encounter Date Diagnosis (ICD Code) Assessment Notes Treatment Notes Treatment Clinical Notes Section Notes 05/14/2025 Left foot pain (ICD-10 - M79.672) 05/14/2025 Nondisplaced fracture of fifth metatarsal bone, left foot, subsequent encounter for fracture with delayed healing (ICD-10 - S92.355G) 05/14/2025 Tendinitis of right foot (ICD-10 - M77.51) 05/14/2025 Pain in right foot (ICD-10 - M79.671) 05/14/2025 Other Continue cam walker and bone stim. Plan Of Treatment Treatment Notes Assessment Notes Other Continue cam walker and bone stim. Next Appt Details Provider Name:KENYON KIM PATRIC, 08/07/2025 11:30:00 AM, [address] [facility], [place], [place], [id number], History and Physical Notes * HPI (History of Present Illness) Category Sub-Category Detail Notes Category Not es HPI Follow Up Visit Patient presents for follow up visit for a fracture check on the left foot. , Patient states their problem is, unchanged, and she is using the bone simulator at least once a day. , MA: JMR Examination Category Sub-Category Detail Notes Category Not es X-Ray LEFT FOOT Three views of t he foot were obtained: Fracture noted at the 5th metatarsal base. The fracture is non-displaced X-rays show only increased signs of healing. Constitutional Constitutional The patient [...] ANGELICA BLACK LDOB: 0 (45 yo F)Acc No.[id number]:05/14/2025 Patient: ANGELICA ADKINS Provider: Kan Forrest DPM :1980 A ge:44 Y S ex:Female Date:05/14/2025 Address:[address] [id number] Subjective: * Chief Complaints: * * Fracture check with xrays * HPI: H PI: Follow Up Visit P atient presents for follow up visit for a fracture check on the left foot. , Patient states their problem is, unchanged, and she is using the bone simulator at least once a day. , MA: KATHY. * Medical History: Anxiety [...] * Vitals: H t: 70.00 in, Ht-cm: 177.8 cm. * Examination: C onstitutional: Constitutional T [...] The fracture is non-displaced X-rays show only increased signs of healing. . Assessment: * Assessment: 1. N ondisplaced fracture of fifth metatarsal bone, left foot, subsequent encounter for fracture with delayed healing - S92.355G (Primary) 2 . L eft foot pain - M79.672 ? 3 . T endinitis of right foot - M77.51 4 . P ain in right foot - M79.671 Plan: * Treatment: Billing Information: * Procedure Codes: * Electronic signature of KENYON FORREST DPM on 07/13/2025 at 08:54 AM UNIFORMS SALES REPRESENTATIVE Sign off status: Pending * Provider: Kan Forrest DPM Date: 1 Generated for Dalia grace/Valeri/Mary on: 08:54 AM UNIFORMS SALES REPRESENTATIVE
--- OUTSIDE RECORDS SUMMARY | 2025-06-03 03:40 | XMS_ITS ---
Author Organization [facility] Address [address] [place], [place] [address] Care Team Providers Care Dispatcher Tow Truck Name Role Phone KENYON FORREST Unavailable [phone] Darci Woody Unavailable Unavailable REASON FOR VISIT fracture check with xrays Encounters Encounter Location Date Provider Diagnosis [facility] [place] [address] [facility] [facility] [place], [place] [id number] 06/03/2025 KENYON FORREST Plan Of Treatment Next Appt Details Provider Name:KENYON SPIVEY, 08/07/2025 11:30:00 AM, [address] [facility], [place], [place], [address], Progress Notes * ANGELICA BLACK LDOB: 0 (45 yo F)Acc No.[id number]:06/03/2025 Patient: ANGELICA ADKINS Provider: Kan Forrest DPM :1980 A ge:45 Y S ex:Female Date:06/03/2025 Address:[address] [place], [place] Subjective: * Chief Complaints: * F racture check with xrays * Electronic signature of KENYON FORREST DPM on 07/13/2025 at 08:54 AM ELECTRONIC GAME DEVELOPER Sign off status: Pending * Provider: Kan Forrest DPM Date: 08/03/2024 Generated for Printi ng/Faxing/eTransmitting on: 08:54 AM ELECTRONIC GAME DEVELOPER
--- OUTSIDE RECORDS SUMMARY | 2025-06-04 07:30 | XMS_ITS ---
Author Organization [facility] Address [address] [place], [place] [address] Care Team Providers Care Ceramics Technician Name Role Phone KENYON FORREST Unavailable [phone] Darci Woody Unavailable Unavailable Allergies Allergen (clinical drug ingredient) Drug/Non Drug Allergy documented on EMR Reaction Allergy Type Onset Date Status lorazepam Lorazepam other Drug Allergy Active oxycodone Oxycodone other Drug Allergy Active zolpidem Zolpidem other Drug Allergy Active REASON FOR VISIT *Fracture check Medications Medication SIG (Take, Route, Frequency, Duration) [...] use : Vital Signs Height 70.00 in 06/04/2025 Weight 250.03 lbs 06/04/2025 BMI 35.87 kg/m2 06/04/2025 Height-cm 177.8 cm 06/04/2025 Weight-kg 113.4113 kg 06/04/2025 Encounters Encounter Location Date Provider Diagnosis [facility] [place] [address] [place], [place] [address] 06/04/2025 KENYON [place] Left foot pain M79.672 ; Nondisplaced fracture of fifth metatarsal bone, left foot, subsequent encounter for fracture with delayed healing S92.355G ; Tendinitis of right foot M77.51 and Pain in right foot M79.671 Assessments Encounter Date Diagnosis (ICD Code) Assessment Notes Treatment Notes Treatment Clinical Notes Section Notes 06/04/2025 Left foot pain (ICD-10 - M79.672) 06/04/2025 Nondisplaced fracture of fifth metatarsal bone, left foot, subsequent encounter for fracture with delayed healing (ICD-10 - S92.355G) A trilok ankle brace was dispensed for the pateint's left and the patient was instructed on it's use. 06/04/2025 Tendinitis of right foot (ICD-10 - M77.51) 06/04/2025 Pain in right foot (ICD-10 - M79.671) 06/04/2025 Other Continue cam walker and bone stim. Plan Of Treatment Treatment Notes Assessment Notes Nondisplaced fracture of fif th metatarsal bone, left foot, subsequent encounter for fracture with delayed healing A trilok ankle brace was dispensed for the pateint's left and the patient was instructed on it's use. Other Continue cam walker and bone stim. Next Appt Details Provider Name:KENYON Moya JULIO SPIVEY, 08/07/2025 11:30:00 AM, [address] [facility] [address], [place], [id number], History and Physical Notes * HPI (History of Present Illness) Category Sub-Category Detail Notes Category Not es HPI Follow Up Visit Patient presents for follow up visit for fracture check on the left foot., Patient states their problem is, improving. Still has slight off and on pain but patient isn't sure if the boot is causing the pain vs the fracture hurting., MA: mf Examination Category Sub-Category Detail Notes Category Not es X-Ray LEFT FOOT Three views of t he foot were obtained: Fracture noted at the 5th metatarsal base. The fracture is non-displaced X-rays show increased signs of healing. Constitutional Constitutional The [...] ANGELICA BLACK LDOB: 0 (45 yo F)Acc No.[id number]:06/04/2025 Patient: Michael ANGELICA VIDALES Estefany Provider: Kan Forrest DPM :1980 A ge:45 Y S ex:Female Date:06/04/2025 Address:[address] [place] [address] [address] [facility] [place] [id number] Subjective: * Chief Complaints: * * Fracture check * HPI: H PI: Follow Up Visit P atient presents for follow up visit for fracture check on the left foot., Patient states their problem is, improving. Still has slight off and on pain but patient isn't sure if the boot is causing the pain vs the fracture hurting., MA: mf.? * Medical History: Anxiety High blood pressure Insomnia Medical History Verified * Family History: F ather: PRN - [...] otherLorazepam: otheryesAllergies Verified. Objective: * Vitals: W t:250.03lbs, Wt-k.4113 kg, Ht: 70.00 in, Ht-cm: 177.8 cm, BMI:35.87Index, Body Surface Area: 2.36. * [...] base. The fracture is non-displaced X-rays show increased signs of healing. . Assessment: * Assessment: 1. N ondisplaced fracture of fifth metatarsal bone, left foot, subsequent encounter for fracture with delayed healing - S92.355G (Primary) 2 . L eft foot pain - M79.672 ? 3 . T endinitis of right foot - M77.51 4 . P ain in right foot - M79.671 Plan: * Treatment: 2. O thers Notes: Continue cam walker and bone stim. * Procedure Codes: 7 3630 X-RAY EXAM OF FOOT, Modifiers: LT L1902 AFO ANK GAUNTLT PREFAB W/FIT&ADJ, Modifiers: LT , GA Billing Information: * Visit Code: 44530 Office Visit, Est Pt., Level 3. * Procedure Codes: 95049 X-RAY EXAM OF FOOT. Modifiers: LT L1902 AFO ANK GAUNTLT PREFAB W/FIT&ADJ. Modifiers: LT, GA * Electronic signature of KENYON FORREST DPM on 07/13/2025 at 08:54 AM BODY PIERCER Sign off status: Pending * Provider: Kan Forrest DPM Date: 08/04/2024 Generated for Dalia grace/Valeri/Mary on: 08:54 AM BODY PIERCER
--- OUTSIDE RECORDS SUMMARY | 2025-06-26 06:40 | XMS_ITS ---
Author Organization [facility] Address [address] [place], [place] [address] Care Team Providers Care Scrubber System Attendant Name Role Phone KENYON FORREST Unavailable [phone] Darci Woody Unavailable Unavailable Allergies Allergen (clinical drug ingredient) Drug/Non Drug Allergy documented on EMR Reaction Allergy Type Onset Date Status lorazepam Lorazepam other Drug Allergy Active oxycodone Oxycodone other Drug Allergy Active zolpidem Zolpidem other Drug Allergy Active REASON FOR VISIT FRACTURE CHECK W/ X-RAYS Medications Medication SIG (Take, Route, Frequency, Duration) Notes Start Date End Date Status Atorvastatin Calcium 80 MG Tablet TAKE 1 TABLET BY MOUTH EVERY DAY Oral; Duration: 90 Days Active Meloxicam 7.5 MG Tablet Oral; Duration: 30 Days Active Levothyroxine Sodium 137 [...] use : Vital Signs Height 70.00 in 06/26/2025 Weight 250 lbs 06/26/2025 BMI 35.87 kg/m2 06/26/2025 Height-cm 177.8 cm 06/26/2025 Weight-kg 113.4 kg 06/26/2025 Encounters Encounter Location Date [facility] [address] [facility] [address] [place], [place] [id number] 06/26/2025 KENYON FORREST Left foot pain M79.672 ; Nondisplaced fracture of fifth metatarsal bone, left foot, subsequent encounter for fracture with delayed healing S92.355G ; Tendinitis of right foot M77.51 and Pain in right foot M79.671 Assessments Encounter Date Diagnosis (ICD Code) Assessment Notes Treatment Notes Treatment Clinical Notes Section Notes 06/26/2025 Left foot pain (ICD-10 - M79.672) 06/26/2025 Nondisplaced fracture of fifth metatarsal bone, left foot, subsequent encounter for fracture with delayed healing (ICD-10 - S92.355G) Continue trilok 06/26/2025 Tendinitis of right foot (ICD-10 - M77.51) 06/26/2025 Pain in right foot (ICD-10 - M79.671) 06/26/2025 Other Continue cam walker and bone stim. Plan Of Treatment Treatment Notes Assessment Notes Nondisplaced fracture of fif th metatarsal bone, left foot, subsequent encounter for fracture with delayed healing Continue trilok Other Continue cam walker and bone stim. Next Appt Details Follow Up: 4 Weeks, Reason: Provider Name:KENYON BOYERG, 08/07/2025 11:30:00 AM, [address] [facility] [place] [address], [place], [place], [id number], History and Physical Notes * HPI (History of Present Illness) Category Sub-Category Detail Notes Category Not es HPI Follow Up Visit Patient presents for follow-up visit for fracture check on left foot. Patient states it is still a little painful and that it hurts at the end of the day. , Patient states their problem is, unchanged., MA: da Examination Category Sub-Category Detail Notes Category Not [...] ANGELICA BLACK LDOB: 0 (45 yo F)Acc No.[id number]:06/26/2025 Patient: ANGELICA ADKINS Provider: Kan Forrest DPM :1980 A ge:45 Y S ex:Female Date:06/26/2025 Address:[address] [place] [address] , [place] [id number] Subjective: * Chief Complaints: * F RACTURE CHECK W/ X-RAYS * HPI: H PI: Follow Up Visit P atient presents for follow-up visit for fracture check on left foot. Patient states it is still a little painful and that it hurts at the end of the day. , Patient states their problem is, unchanged., MA: da. * Medical History: Anxiety High blood pressure [...] t:250lbs, Wt-k.4 kg, Ht: 70.00 in, Ht-cm: 177.8 cm, [...] OF FOOT, Modifiers: LT * Follow Up: 4 Weeks Billing Information: * Visit Code: 74666 Office Visit, Est Pt., Level 3. * Procedure Codes: 06425 X-RAY EXAM OF FOOT. Modifiers: LT * Electronic signature of KENYON FORREST DPM on 07/13/2025 at 08:53 AM COMMISSION AGENT LIVESTOCK Sign off status: Pending * Provider: Kan Forrest DPM Date: 08/27/2024 Generated for Dalia grace/Valeri/Mary on: 08:53 AM COMMISSION AGENT LIVESTOCK
--- NOTE | ~2025-07-13 | XR_ITS ---
EXAMINATION: XR chest 2V 07/13/2025 09:38 INDICATION: Cough and shortness of breath PROCEDURE: 2 view chest COMPARISON: 02/10/2025 FINDINGS: The lungs are clear. The cardiomediastinal silhouette is within normal limits. There are no pleural effusions. There is no pneumothorax suspected. There is an atrial septal defect closure device. There are cholecystectomy clips. IMPRESSION: 1: NO ACUTE CARDIOPULMONARY DISEASE. Reviewed, dictated and finalized at location O. CARD WRITER
--- OUTSIDE RECORDS SUMMARY | 2025-07-13 08:53 | XMS_ITS | Encounter Summary ---
Author Organization [facility] Address [address] [place] [address] Care Team Providers Care Printing Press Machine Operator Name Role Phone Saul Ruelas MD Primary Care Provider [phone] Robert García MD Primary Care Provider + Quincy Obregon MD Primary Care Provider [phone] Encounter Details Date Type Department Care Team (Late st Contact Info) Description 10/12/2020 Prep for Procedure [facility] Interventional [place] [address] [id number] Sujey Yap NP [address] [facility] [address] [place] [phone] (Work) Social History Tobacco Use Types Packs/Day [...] on file Legal Sex Female 9:56 AM CONTINUITY EDITOR Gender Identity Not on file Sexual Orientation Not on file COVID-19 Exposure Response Date Recorded In the last month, have you been in contact with someone who was confirmed or suspected to have Coronavirus / COVID-19? No / Unsure 10/12/2020 11:29 AM CDT documented as of this encounter Plan of Treatment Upcoming Encounters Date Type Department Care Team (Latest Contact Info) Description 08/13/2025 4:20 PM CONTINUITY EDITOR Hospital Encounter [facility] Inter[facility] [place] [address] [id number] Quita Miner MD [address] [facility] [address] [place] [address] 08/13/2025 4:20 PM CONTINUITY EDITOR - 08/13/2025 4:40 PM CONTINUITY EDITOR Surgery [facility] [place] [address] [id number] Quita Miner MD [address] [facility] [address] [place] [address] BLOCK SACROILIAC JOINT 08/19/2025 9:40 AM CONTINUITY EDITOR [facility] [address], [address] [place] [phone] Abiodun Red MD [address] [place] [address] 10/19/2025 10:20 AM CDT [facility] [address], [address] [place] [phone] Marine Glover APRN [address] [facility] [address] [place] [address] Scheduled Procedures Name Priority Associated Diagnoses Date/Ti me BLOCK SACROILIAC JOINT Sacroiliitis Foraminal stenosis of lumbar region Lumbar radiculopathy 08/13/2025 4:20 PM CONTINUITY EDITOR documented as of this encounter Visit Diagnoses Not on filedocumented in this encounter Care Teams Printing Press Machine Operator Relationship Specialty Start Date End Date Saul Ruelas MD [address] [phone] PCP - General FAMILY PRACTICE 10/12/20 08/16/23 Robert García MD [address] [phone] PCP - General 08/17/23 06/28/25 Quincy Obregon MD [address] [facility] [address] [place] [address] PCP - General 06/29/25 documented as of this encounter
--- OUTSIDE RECORDS SUMMARY | 2025-07-13 08:53 | XMS_ITS | Clinical Summary ---
Author Organization [address] Address [address] [place] [id number] Care Team Providers Care Artificial Limb Maker Name Role Phone Abiodun Red MD Unavailable [phone] Issac Amador MD Unavailable [phone] Kelly Jeronimo NP Unavailable [phone] Ronny Boykin MD Unavailable [phone] Quincy Obregon MD Primary Care Provide r Allergies No known active allergies Medications cyclobenzaprine (FLEXERIL) 10 mg tablet Take 1 tablet (10 mg total) by mouth 3 (three) times a day as needed for muscle spasms 09/29/19 21 Active Synthroid 137 mcg tablet Take 1 tablet (137 mcg total) by mouth nurses' association executive director before breakfast 09/16/19 21 Active pregabalin (LYRICA) [...] skin every 7 days Sunday Active vit C,U-Pf-yytbo-andrea tein-zeaxan 250-90-40-1 mg capsule Take 2 capsules by mouth daily Active cycloSPORINE (RESTASIS) 0.05 % ophthalmic emulsion Administer 1 drop into both eyes 2 (two) times a day Active fluticasone propionate (FLONASE) 50 mcg/actuation nasal spray Administer 1 spray into each nostril daily Active buprenorphine (BUTRANS) 20 mcg/hourIndicat ions:opioid use disorder Place 1 patch on the skin once for 7 days for 1 dose 1 patch 02/20/20 Active Additional Information Patient not taking.Reported on 06/18/2025 polyethylene glycol (MIRALAX) 17 gram/dose bulk powderIndicatio ns:constipation Take 17 g by mouth daily 510 g 02/20/20 Active senna-docusate (PERICOLACE) 8.6-50 mg Take 1 tablet by mouth 2 (two) times a day 60 tablet 02/20/20 Active Additional Information Patient not taking.Reported on 06/18/2025 naloxone (NARCAN) 4 mg/actuation spray,non-aeros ol Administer 1 spray into affected nostril(s) as needed for opioid reversal or respiratory depression Call 911. Administer a single spray in one nostril. Repeat every 3 minutes as needed if no or minimal response. 1 each 1 02/20/20 Active Additional Information Patient not taking.Reported on 06/18/2025 clotrimazole-be tamethasone (LOTRISONE) cream APPLY TOPICALLY TO THE AFFECTED AREA TWICE DAILY 03/19/20 25 Active Ubrelvy 100 mg tablet 03/15/20 25 Active eszopiclone (LUNESTA) 3 mg tabletIndicatio ns:Insomnia Take 1 tablet (3 mg total) by mouth nightly Take immediately before bedtime 90 tablet 06/29/20 25 Active meloxicam (MOBIC) 7.5 mg tablet TAKE 1 TABLET(7.5 MG) BY MOUTH DAILY 30 tablet 07/03/20 25 Active meloxicam (MOBIC) 7.5 mg tablet TAKE 1 TABLET(7.5 MG) BY MOUTH DAILY 30 tablet 06/02/20 25 2024 Discontinued eszopiclone (LUNESTA) 3 mg tabletIndicatio ns:Insomnia Take 1 tablet (3 mg total) by mouth nightly Take immediately before bedtime 90 tablet 06/09/20 25 2024 Discontinued(R eorder) Active Problems Patient Care Coordination No te [...] in the hospital after being transferred from [facility] for the above diagnosis. Patient had a [...] and discussion. Problem Noted Date Diagnosed Date Chronic fatigue 06/18/2025 Assessment & Plan (06/18/2025 12:03 PM TIRE TRIMMER HAND): Due to the chronic fatigue I have ordered a CBC, vitamin B12, vitamin-D, TSH, and iron, and ferritin. De Quervain's disease (radial styloid tenosynovi tis) [...] is currently on suboxone through pain management. [place] some relief with meloxicam so resumed meloxicam 7.5mg PRN daily. Assessment & Plan (11/25/2024 11:53 AM CDT): No evidence for an inflammatory arthritis on US, XR, or serologies so will defer restarting HCQ at this time. Likely multifactorial with chronic pain from fibromyalgia and degenerative arthritis. She is currently on suboxone through pain management. [place] some relief with meloxicam so will resume [...] needed. Assessment & Plan (09/01/2024 12:03 PM TIRE TRIMMER HAND): 44-year-old female with PMHx of HTN, HLD, [...] dosing due to hx GERD. Will contact ict sales representative for records. Follow up in 2 weeks. Sooner if needed. Seen with Dr. Amador. Dyslipidemia 12/05/2023 Atypical chest pain 05/24/2023 Dyspnea on exertion 05/24/2023 Edema 05/24/2023 Chronic migraine without aur a without status migrainosus, not intractable 09/29/2022 Depression 05/16/2022 TONY (obstructive sleep apnea) 10/05/2020 Assessment & Plan (06/18/2025 12:03 PM TIRE TRIMMER HAND): The patient states that her CPAP is at the end of its useful life. It looks like she received her CPAP August 05, 2020. The patient will be eligible for new CPAP in the middle of July. The patient is agreeable to have a new CPAP ordered when she is eligible. The patient will call back in if she does have any difficulty with the machine she is currently using. The patient's DME is [employer]. Her CPAP is set at 9 cm water pressure. The patient is agreeable to try 10 cm water pressure to help the AHI when the new CPAP is ordered. Assessment & Plan (03/12/2025 11:13 AM CDT): [...] adapt Assessment & Plan (07/01/2024 10:25 AM TIRE TRIMMER HAND): Patient continue with CPAP at 8 cm water pressure while sleeping. She was intolerable of higher pressures in the past. DME is [employer]. Assessment & Plan (06/28/2023 11:59 AM TIRE TRIMMER HAND): Due to continued symptoms, the patient will continue CPAP at 8 cm water pressure. The patient has an elevated AHI, however she is intolerant of higher pressure. Denied need for supplies. DME [employer] Assessment & Plan (06/27/2022 12:02 PM TIRE TRIMMER HAND): Patient continue to wear CPAP at 8 cm water pressure while sleeping. Her DME is [employer]. The patient did not tolerate an increase in her pressures in the past. Assessment & Plan (06/30/2021 11:05 AM TIRE TRIMMER HAND): Patient continue to wear CPAP at 8 cm water pressure while sleeping. Her DME is [employer]. The patient is already registered her CPAP [...] patient denied need for supplies. DME company [employer]. The patient and I discussed the recall [...] open while sleeping. The DME company is [employer]. The patient is benefitting from CPAP therapy. Primary insomnia 10/05/2020 Assessment & Plan (06/18/2025 12:03 PM TIRE TRIMMER HAND): The patient continue with Lunesta at 3 mg p.o. Q bedtime. The patient would like a 90 day supply sent at her next refill. Assessment & Plan (03/12/2025 11:14 AM CDT): [...] person. Assessment & Plan (07/01/2024 10:25 AM TIRE TRIMMER HAND): The patient continues with Lunesta 3 mg on most nights. Assessment & Plan (06/28/2023 11:58 AM TIRE TRIMMER HAND): Due to continued symptoms, the patient will continue Lunesta 3 mg nightly. I have refilled the medication and will refill for 1 year Patient is aware that she should wear her CPAP machine if taking the medication. Assessment & Plan (06/27/2022 12:02 PM TIRE TRIMMER HAND): The patient will continue with Lunesta 3 mg p.o. at bedtime to treat insomnia. Assessment & Plan (06/30/2021 11:04 AM TIRE TRIMMER HAND): The patient will continue with Lunesta 3 [...] Encounters Date Type Department Care Team Description 06/18/2025 11:30 AM TIRE TRIMMER HAND Office Visit [facility] Pulmonary [address] [place] [phone] Tawanna Kee NP TONY (obstructive sleep apnea) (Primary Dx); Primary insomnia; Chronic fatigue 05/27/2025 7:42 AM TIRE TRIMMER HAND - 05/27/2025 11:59 PM TIRE TRIMMER HAND Hospital Encounter [facility] Respiratory [address] [place] [address] Loculated pleural effusion Discharge Disposition: Discharge to home or self care from Last 3 Months Surgical History Surgery [...] Tobacco: Never Tobacco Cessation:Counseling Given: Not Answered [facility] Utilities Answer Date Recorded In the past 12 months has [employer], gas, oil, or water company threatened to [...] often do you attend chur ch or congregation services? Never 02/11/2025 Do you belong to any clubs o r organizations such as episcopal groups, unions, fraternal or athletic groups, or [...] time in the past 12 m [facility], were you homeless or living in a senior care (including now)? No 02/11/2025 Personal Safety Answer Date Recorded Have you ever been in or are you currently in a harmful physical or emotional relationship or is someone making you feel afraid or unsafe? Denies 02/10/2025 Comments Unknown Sex and Gender Information Value Date Recorded Sex Assigned at Not on file Legal Sex Female 9:00 AM TIRE TRIMMER HAND Gender Identity Female 09/06/2024 3:20 PM TIRE TRIMMER HAND Sexual Orientation Not on file Last Filed Vital Signs Vital Sign Reading Time Taken Comments Blood Pressure 110/72 06/18/2025 11:15 AM TIRE TRIMMER HAND Pulse 85 06/18/2025 11:15 AM TIRE TRIMMER HAND Temperature 36.4 C (97.5 F) 06/18/2025 11:15 AM TIRE TRIMMER HAND Respiratory Rate 18 06/18/2025 11:1 5 AM TIRE TRIMMER HAND Oxygen Saturation 93% 06/18/2025 11: 15 AM TIRE TRIMMER HAND Inhaled Oxygen Concentration - - Weight 103.2 kg (227 lb 9.6 oz) 025 11:15 AM TIRE TRIMMER HAND Height 177.8 cm (5' 10) 06/18/2025 11: 15 AM TIRE TRIMMER HAND Body Mass Index 32.66 06/18/2025 11:15 AM TIRE TRIMMER HAND Plan of Treatment Health Maintenance Due Date Last Done Comments Breast Cancer Screening-Mammogram 1980 Cervical Cancer Screening 1980 Colon Cancer Screening-Colonoscopy 1980 Depression Screening 1980 Hepatitis C Screening 1980 Hepatitis B Screening 1998 Regular Well Visit/Exam 18-64 1998 Covid-19 Vaccine ( season) 2025 10/21/2020, 09/28/2020 Influenza Vaccine (#1) 2025 , 04/18/2019, 06/05/2018, Additional history exists DTaP/Tdap/Td Vaccine (3 - Td or Tdap) 03/04/2028 03/04/2018, 05/28/2012, 04/21/2002 HPV Vaccines Completed 01/21/2007, 03/0 08/2006, 07/11/2006 Varicella Vaccines Completed 07/27/2009, 05/28/2009 Pneumococcal vaccine <65 Aged Out No longer eligible based on patient's age to complete this topic Procedures Procedure Name Priority Date/Time Associated Diagnosis Comments PULMONARY FUNCTION TEST (PFT) Routine 05/27/2025 8:30 AM TIRE TRIMMER HAND Loculated pleural effusion from Last 3 Months Results * Pulmonary Function Test - (05/27/2025 8:30 AM [facility]) Pathologist [facility] FVC POST 3.54 L 05/27/2025 9:13 AM [facility] FEV1 POST 2.69 L 05/27/2025 9:13 AM [facility] [id number] 75.87 % 05/27/2025 9:13 AM [facility] IYS37-26% POST 2.17 L/s 05/27/2025 9:13 AM [facility] PEF POST 7.64 L/s 05/27/2025 9:13 AM [facility] DLCOc SB 25.40 ml/(min*mm Hg) 05/27/2025 9:13 AM [facility] DLCO/VA PRE 5.49 ml/(min*mm Hg*L) 05/27/2025 9:13 AM [facility] VA 4.63 L 05/27/2025 9:13 AM [facility] TLC PRE 5.88 L 05/27/2025 9:13 AM [facility] VC PRE 3.86 L 05/27/2025 9:13 AM [facility] IC PRE 2.70 L 05/27/2025 9:13 AM [facility] FRC PL PRE 3.04 L 05/27/2025 9:13 AM [facility] ERV PRE 1.02 L 05/27/2025 9:13 AM [facility] RV PRE 2.02 L 05/27/2025 9:13 AM [facility] RAW PRE 3.63 cmH2O*s/L 05/27/2025 9:13 AM [facility] VTG 2.85 L 05/27/2025 9:13 AM [facility] FVC PRE 3.44 L 05/27/2025 9:13 AM [facility] FEV1 PRE 2.63 L 05/27/2025 9:13 AM [facility] [id number] 76.30 % 05/27/2025 9:13 AM [facility] UVP80-83% PRE 2.19 L/s 05/27/2025 9:13 AM [facility] PEF PRE 7.25 L/s 05/27/2025 9:13 AM TIRE TRIMMER HAND [facility] Anatomical Region Laterality Modality PFT 05/27/2025 7:45 AM TIRE TRIMMER HAND Narrative 05/27/2025 9:47 AM TIRE TRIMMER HAND Spirometry shows no obstruction. Nonspecific spirometric impairment Lung volumes with no restrictive lung disease. No diffusion impairment. Normal inspiratory flow loop. Electronically signed by Valeria Hutchinson MD Ronny Boykin MD PFT ORDERABLES Final Result from Last 3 Months Insurance [address] [place] [phone] [facility] [employer] [place] [address] [place] [phone] [employer] [place] [facility] [place]ESS [place]ICE [place] [facility] Advance Directives For more information, please contact: [phone] * Full Code (Latest Code Status on File) Date Activated Date Inactivated Comments 02/11/2025 1:28 AM 02/19/2025 4:37 PM Care Teams Artificial Limb Maker Relationship Specialty Start Date End Date Quincy Obregon MD [address] [place] [address] PCP - General Emergency Medicine 05/14/25 Abiodun Red MD [address] [place] [address] Referring Physician Neurology 11/27/22 Issac Amador MD [address] [place] [address] Consulting Physician Rheumatology 07/23/24 Kelly Jeronimo NP [address] [place] [address] Nurse Practitioner Pulmonary Disease 03/09/25 Ronny Boykin MD [address] [place] [address] Consulting Physician Pulmonary Disease 03/09/25
--- OUTSIDE RECORDS SUMMARY | 2025-07-13 08:53 | XMS_ITS | Encounter Summary ---
Author Organization [facility] Address [address] [place] [address] Care Team Providers Care Aviation Metalsmith Name Role Phone Robert García MD Primary Care Provider + Quincy Obergon MD Primary Care Provider [phone] Encounter Details Date Type Department Care Team (Late st Contact Info) Description 01/22/2024 [place] Message Enc [facility] Multispecialty Care - [facility] [address] [facility], [address] [place] [address] [employer], [facility] Provider prescription Social History Tobacco [...] on file Legal Sex Female 9:56 AM LINDERMAN MACHINE OPERATOR Gender Identity Not on file Sexual Orientation Not on file documented as of this encounter Plan of Treatment Upcoming Encounters Date Type Department Care Team (Latest Contact Info) Description 08/13/2025 4:20 PM LINDERMAN MACHINE OPERATOR Hospital Encounter [facility] [place] [address] [phone] Quita Miner MD [facility] [address] [place] [phone] 08/13/2025 4:20 PM LINDERMAN MACHINE OPERATOR - 08/13/2025 4:40 PM LINDERMAN MACHINE OPERATOR Surgery [facility] [place] [address] [phone] Quita Miner MD [facility] [address] [place] [address] BLOCK SACROILIAC JOINT 08/19/2025 9:40 AM LINDERMAN MACHINE OPERATOR [facility] [address] [facility], [address] [place] [phone] Abiodun Red MD [address] [place] [address] 10/19/2025 10:20 AM CDT Office Visit [facility] - [facility] [address] [facility], [address] [place] [phone] Marine Glover APRN [address] [facility] [address] [place] [address] Scheduled Procedures Name Priority Associated Diagnoses Date/Ti az BLOCK SACROILIAC JOINT Sacroiliitis Foraminal stenosis of lumbar region Lumbar radiculopathy 08/13/2025 4:20 PM LINDERMAN MACHINE OPERATOR documented as of this encounter Visit Diagnoses Not on filedocumented in this encounter Additional Health Concerns Assessment Noted Time PHQ-9 Depression Total Score: 7 06/02/20 22 9:57 AM LINDERMAN MACHINE OPERATOR documented as of this encounter Care Teams Aviation Metalsmith Relationship Specialty Start Date End Date Robert García MD PCP - General 08/17/23 06/28/25 Quincy Obregon MD [address] [address] PCP - General 06/29/25 documented as of this encounter
--- OUTSIDE RECORDS SUMMARY | 2025-07-13 08:53 | XMS_ITS | Patient Health Record ---
Author Organization [facility] Address [address] [facility] [address] [place] [address] Care Team Providers Care Unhairing Machine Operator Name Role Phone Miguel Marrero Primary Care Provider Unavailabl e RAVINDRA DE PAZ Unavailable [phone] Domenico Orourke M.D. Unavailabl e Reason For [...] Notes Problem Obesity due to excess calories (150747393) Other obesity due to excess calories (E66.09) Active confirmed Problem Chronic pain syndrome (032117428) Chronic pain syndrome (G89.4) Active confirmed Problem Abnormal weight gain (058359877) Abnormal weight gain (R63.5) Active confirmed Problem History of bariatric surgical procedure (234343201) Bariatric surgery status (Z98.84) Active confirmed Problem Essential hypertension (58508936) Essential hypertension (I10) Active confirmed Problem Obstructive sleep apnea (37428876) Obstructive sleep apnea (G47.33) Active confirmed Problem Depressive disorder (disorder) (64413176) Depression, unspecified depression type (F32.9) Active confirmed Problem History of cerebrovascular accident (456890109) History of stroke (Z86.73) Active confirmed Plan Of Treatment No Information Insurance Providers Payer Name Payer Address Payer Phone Subscriber Number Group Number Insured Name Patient Relationship to Insured Coverage Start Date Coverage End Date [employer]PS / [address] [place] [phone] [id number] PRIME/AC Damir Diaz Spouse - patient is the spouse of [...]
--- OUTSIDE RECORDS SUMMARY | 2025-07-13 08:53 | XMS_ITS | Clinical Summary ---
Author Organization [facility] Care Team Providers Care Lawn Specialist Name Role Phone Unavailable Primary Care [...] Cervical Cancer Screening (CCS) 2010 HPV/Cotest 2010 Influenza Immunization (#1) 2025 06/04/2020 SARS-COV-2 Immunization ( season) 2025 10/21/2020, 09/28/2020 Respiratory Syncytial Virus (RSV) Immunization [...]
--- OUTSIDE RECORDS SUMMARY | 2025-07-13 08:53 | XMS_ITS | Clinical Summary ---
Author Organization [facility] Address [address] [place] [address] Care Team Providers Care Magnet Placer Name Role Phone Quincy Obregon MD Primary Care Provider [phone] Medications topiramate 50 MG Tab 100 in [...] cyclobenzaprine 10 mg tablet 09/29/19 21 Active buprenorphine-n aloxone 8-2 MG SL Tab SL tablet 1 tablet. 10/01/19 21 Active atorvastatin 40 MG tablet atorvastatin 40 mg tablet 09/16/19 21 Active ASPIRIN LOW DOSE 81 MG tablet 09/17/19 21 Active amitriptyline 25 MG tablet 08/17/19 21 Active methylPREDNISol one, ROLAND, (MEDROL) 4 MG tabletIndicatio ns:Status migrainosus Follow package directions 1 each 03/17/20 Active Additional Information Patient not taking.Reported on 07/02/2025 divalproex ER (DEPAKOTE ER) 250 MG 24 hr tabletIndicatio ns:Migraine without aura, not intractable, without status migrainosus Take 1 tablet (250 mg total) by mouth daily. 30 tablet 03/23/20 Active Additional Information Patient not taking.Reported on 07/02/2025 escitalopram (LEXAPRO) 10 MG tablet Take 1 tablet (10 mg total) by mouth daily. Active lidocaine (LIDODERM) 5 % 09/04/19 Active divalproex ER (DEPAKOTE) 250 MG 24 hr tabletIndicatio ns:Migraine without aura, not intractable, without status migrainosus TAKE 1 TABLET(250 MG) BY MOUTH DAILY 30 tablet 02/23/20 Active Additional Information Patient not taking.Reported on 07/02/2025 busPIRone (BUSPAR) 15 MG tablet Take 1 tablet (15 mg total) by mouth 3 (three) times daily. Active QULIPTA tabletIndicatio ns:Migraine without aura, not intractable, without status migrainosus TAKE 1 TABLET(60 MG) BY MOUTH DAILY 30 tablet 12/18/19 Active azithromycin (ZITHROMAX) 250 MG tablet Take [...] mg total) by mouth daily. Active Multiple Vitamins-Minera ls (PRESERVISION AREDS 2) Cap Take 2 capsules by mouth daily. Active mupirocin (BACTROBAN) 2 % ointment Apply topically as needed. 01/29/20 Active sertraline (ZOLOFT) 25 MG tablet Take 1 tablet (25 mg total) by mouth daily. Active ZEPBOUND 2.5 MG/0.5ML injection Inject 2.5 mg into the skin once a week. Active traZODone (DESYREL) 100 MG tablet Take 1 tablet (100 mg total) by mouth nightly at bedtime. Activ e tacrolimus (PROTOPIC) 0.1 % ointment Apply topically as needed. 02/24/20 25 Active prochlorperazin e (COMPAZINE) 5 MG tabletIndicatio ns:Migraine without aura, not intractable, without status migrainosus Take 1 tablet (5 mg total) by mouth 2 (two) times a day. 10 tablet 03/02/20 25 Active Additional Information Patient not taking.Reported on 07/02/2025 SUMAtriptan (IMITREX) 100 MG tabletIndicatio ns:Other migraine without status migrainosus, not intractable Take 1 tablet (100 mg total) by mouth 2 (two) times daily as needed for Migraine. Take 1 tablet at onset of symptoms, may take 1 tablet 2 hours later. Max of 2 tablets in 24-hour period. 16 tablet 03/14/20 25 Active ubrogepant (UBRELVY) 100 MG tabletIndicatio ns:Migraine without aura, not intractable, without status migrainosus Take 1 tablet (100 mg total) by mouth 2 (two) times daily as needed. Max of 2 tablets (200 mg) in 24 hours 16 tablet 03/14/20 25 Active AIMOVIG 70 MG/ML injection (autoinjector)I ndications:Electroplater Automatic ivania migraine w/o aura w/o status migrainosus, not intractable ADMINISTER 1 ML UNDER THE SKIN EVERY 30 DAYS 1 mL 6 03/23/20 25 Active QUEtiapine (SEROQUEL) 25 MG tabletIndicatio ns:Insomnia, unspecified type TAKE 1 TABLET(25 MG) BY MOUTH EVERY NIGHT AT BEDTIME 30 tablet 5 06/02/20 25 Active ALPRAZolam (XANAX) 0.5 MG tablet Take 1 tablet (0.5 mg total) by mouth 2 (two) times daily. 06/22/20 Active furosemide (LASIX) 40 MG tablet Take 1 tablet (40 mg total) by mouth daily. 04/05/20 Active Active Problems Problem Noted Date Diagnosed Date Spinal stenosis, lumbar chaitanya on without neurogenic claudication 07/04/2025 Degeneration of intervertebr al disc of lumbar region with discogenic back pain and lower extremity pain 07/04/2025 Other intervertebral disc displacement, lumbar r egion 07/04/2025 Other chronic pain 07/04/2025 Lumbar radiculopathy 07/04/2025 Foraminal stenosis of lumbar region 07/04/2025 Sacroiliitis 07/04/2025 Abnormal weight gain 02/25/2025 ADD (attention deficit disorder) 02/25/2025 Overview (02/25/2025): Possibly. I just want to be evaluated. History of bariatric surgery 02/25/2025 Numbness of hand 02/25/2025 Other obesity due to excess calories 02/25/2025 Hypothyroidism 02/11/2025 Loculated pleural effusion 02/11/2025 Obesity (BMI 30-39.9) 02/11/2025 Polyarthralgia 11/25/2024 Sicca complex 09/01/2024 Overview (02/25/2025): 09/01/24: CBC nl, CMP [...] neuroma of right foot 12/16/2018 Opioid dependence 11/06/2018 Sacroiliac joint pain 11/06/2018 Anxiety 10/08/2012 Stroke 10/08/2012 Chronic back pain 02/20/2010 Encounters Date Type Department Care Team Description 07/02/2025 2:00 PM CHICKEN CLEANER [facility] [address] [facility] [address] [facility], [address] [place] [phone] Marine Glover APRN New Patient (Lumbar pain ) 07/02/2025 Travel 06/22/2025 Misc Documentation [facility] [address] [place] [address] Abiodun Red MD 06/19/2025 Telephone [facility] [address] [place] [address] Abiodun Red MD Prior Authorization 06/18/2025 Therapy Plan [facility] [address], [address] [place] [address] Abiodun Red MD 06/02/2025 Scan [employer] INFO SRVCS Scanned, [facility] 05/29/2025 Orders Only [facility] [address] [facility] [address] [place] [address] Abiodun Red MD 05/27/2025 1:00 PM CHICKEN CLEANER [facility] [address], [address] [place] [phone] Abiodun Red MD Botox Procedure ( migraines ) 05/27/2025 Scan [facility] INFO SRVCS Scanned, [facility] 05/27/2025 Travel 05/21/2025 MyChart Message Enc [facility] [address] [facility] [address] [place] [phone] Abiodun Red MD Another migraine 05/13/2025 Scan [facility] INFO SRVCS Scanned, Doc [...] on file Legal Sex Female 9:56 AM CHICKEN CLEANER Gender Identity Not on file Sexual Orientation Not on file Last Filed Vital Signs Vital Sign Reading Time Taken Comments Blood Pressure 123/81 07/02/2025 2:18 PM CHICKEN CLEANER Pulse 91 07/02/2025 2:18 PM CHICKEN CLEANER Temperature 36.9 C (98.4 F) 07/02/2025 2:18 PM CHICKEN CLEANER Respiratory Rate 18 02/25/2025 1:05 PM CDT Oxygen Saturation 97% 07/02/2025 2:18 PM CHICKEN CLEANER Inhaled Oxygen Concentration - - Weight 101.2 kg (223 lb) 07/02/2025 2:18 PM CHICKEN CLEANER Height 177.8 cm (5' 10) 07/02/2025 2:18 PM CHICKEN CLEANER Body Mass Index 32 07/02/2025 2:18 PM CHICKEN CLEANER Plan of Treatment Upcoming Encounters Date Type Department Care Team (Latest Contact Info) Description 08/13/2025 4:20 PM CHICKEN CLEANER Hospital Encounter [facility] Interventional [place] [address] [id number] Quita Miner MD Three [facility] [address] [place] [address] 08/13/2025 4:20 PM CHICKEN CLEANER - 08/13/2025 4:40 PM CHICKEN CLEANER Surgery [facility] Interventional [place] [address] [id number] Quita Miner MD Three [facility] [address] [facility] [place] [address] BLOCK SACROILIAC JOINT 08/19/2025 9:40 AM CHICKEN CLEANER [facility] [address], [address] [place] [address] Abiodun Red MD [address] [place] [id number] 10/19/2025 10:20 AM CDT [facility] [address], [address] [place] [phone] Marine Glover APRN [address] [facility] [address] [place] [address] Scheduled Procedures Name Priority Associated Diagnoses Date/Ti me BLOCK SACROILIAC JOINT Sacroiliitis Foraminal stenosis of lumbar region Lumbar radiculopathy 08/13/2025 4:20 PM CHICKEN CLEANER Health Maintenance Due Date Last Done Comments Cervical Cancer Screening Pap Smear (Age 30 to 64) Every 3 Years 1980 Colorectal Cancer Screening Colonoscopy (10 Years) 1980 Annual Physical 1983 Hepatitis C 1998 Hepatitis B Vaccines (1 of 3 - 19+ 3-dose series) 1999 Pneumococcal Vaccine: Pediatrics (0 to 5 Years) and At-Risk Patients (6 to 49 Years) (1 of 2 - PCV) 1999 Cervical Cancer Screening Pap with HPV Testing (Age 30 to 64) Every 5 Years 2010 Cervical Cancer Screening with HPV 2010 Mammogram Screening 2020 COVID-19 Vaccine (3 - Pfizer risk series) 11/18/2020 10/21/2020, 09/28/2020 Influenza Adult (#1) 2025 06/04/2020, 04/18/2019, 06/05/2018, Additional history exists DTaP, Tdap and Td Vaccines (3 - Td or Tdap) 03/04/2028 03/04/2018, 05/28/2012, 04/21/2002 HPV Vaccines Completed 01/21/2007, 0308/2006, 07/11/2006 PHQ-2 (Physician [facility]) Completed 08/27/2024 Hepatitis A Vaccines Aged Out No long er eligible based on patient's age to complete this topic Meningococcal B Vaccine Aged Out No l onger eligible based on patient's age to complete this topic Meningococcal Vaccine Aged Out No bebeto emily eligible based on patient's age to complete this topic RSV Immunizations Under 20 Months Aged Out No longer eligible based on patient's age to complete this topic Goals Goal Patient Goal Type Associated Problems Recent Progress Patient-Stated? Author Autogenera pily Goal Care Plan Autogenerated Problem No Tracee, Palak Low Additional Health Concerns Active Problems Noted Date Diagnosed Date Autogenerated Problem 07/03/2025 Insurance [employer] [facility] Care Teams Magnet Placer Relationship Specialty Start Date End Date Quincy Obregon MD [address] [facility] [address] [place] [address] PCP - General 06/29/25
--- OUTSIDE RECORDS SUMMARY | 2025-07-13 08:53 | XMS_ITS | Encounter Summary ---
Author Organization [facility] Address [address] [place] [address] Care Team Providers Care Custom Home Installer Name Role Phone Robert García MD Primary Care Provider + Quincy Obregon MD Primary Care Provider [phone] Encounter Details Date Type Department Care Team (Latest Contact Info) Description 01/01/2025 [employer] Message Enc [facility] Interventional Pain Management Center [place], [place] [phone] [id number] [facility] Provider Pain Management Referral Social History Tobacco [...] on file Legal Sex Female 9:56 AM GEOMAGNETIST Gender Identity Not on file Sexual Orientation Not on file documented as of this encounter Plan of Treatment Upcoming Encounters Date Type Department Care Team (Latest Contact Info) Description 08/13/2025 4:20 PM GEOMAGNETIST Hospital Encounter [facility] [place] [address] [id number] Quita Miner MD Three [facility] [address] [place] [address] 08/13/2025 4:20 PM GEOMAGNETIST - 08/13/2025 4:40 PM GEOMAGNETIST Surgery [facility] Interventional [place] [address] [id number] Quita Miner MD Three [facility] [address] [place] [address] BLOCK SACROILIAC JOINT 08/19/2025 9:40 AM GEOMAGNETIST [facility] [address] [facility], [address] [place] [phone] Abiodun Red MD [address] [place] [address] 10/19/2025 10:20 AM CDT [facility] [address] [facility], [address] [place] [address] Marine Glover APRN [address] [facility] [address] [place] [address] Scheduled Procedures Name Priority Associated Diagnoses Date/Ti de BLOCK SACROILIAC JOINT Sacroiliitis Foraminal stenosis of lumbar region Lumbar radiculopathy 08/13/2025 4:20 PM GEOMAGNETIST documented as of this encounter Visit Diagnoses Not on filedocumented in this encounter Additional Health Concerns Assessment Noted Time PHQ-9 Depression Total Score: 7 06/02/20 22 9:57 AM GEOMAGNETIST documented as of this encounter Care Teams Custom Home Installer Relationship Specialty Start Date End Date Robert García MD PCP - General 08/17/23 06/28/25 Quincy Obregon MD [address] [address] PCP - General 06/29/25 documented as of this encounter
--- OUTSIDE RECORDS SUMMARY | 2025-07-13 08:54 | XMS_ITS | Patient Health Record ---
Author Organization [facility] Address [address] [place], [place] [address] Care Team Providers Care Contracts Law Professor Name Role Phone KENYON HARRIS Unavailable [phone] Darci Woody Unavailable Unavailable MIHIR SANDRA Unavailable [phone] Allergies Allergen (clinical drug ingredient) Drug/Non Drug Allergy documented on EMR Reaction Allergy Type Onset Date Status lorazepam Lorazepam other Drug Allergy Active oxycodone Oxycodone other Drug Allergy Active zolpidem Zolpidem other Drug Allergy Active Reason For Referral Reason [facility] ( S URGERY ) [address] / [facility] / [facility]. [place] Diagnosis 1 Tailor's bunion of r ight foot (M21.621) Referred Organization [facility] Referred Provider KENYON HARRIS Referred Address [address],[place], [id number], Referred Provider Specialty Podiatry Referral Priority Routine Reason [facility] REQ [facility] ( APPOINTMENT: 01/22/2025 ) Diagnosis 1 Pain in right foot ( M79.671) Diagnosis 2 Left foot pain (M79. 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 Administered MMR Unknown 05/28/2009 Administered MMR Unknown 05/28/2009 Administered MMR Unknown 05/05/2019 Administered MMR Unknown 05/05/2019 Administered Novel [id number]-[id number] Unknown 05/19/2009 Administered Novel Mlcpefxem-W2V3-48 Unknown 05/19/2009 Administered Pfizer-Biontech Covid-19 Vac cine [...] Unknown 07/27/2009 Administered Varicella Unknown 07/27/2009 Administered Social History Social History Additional Details Category Social Info Options Details Migrated Social History Migrated Social History Smoking Status : Never used tobacco , History of tobacco use : Vital Signs Height-cm 177.8 cm 06/26/2025 Weight-kg 113.4 kg 06/26/2025 Height 70.00 in 06/26/2025 Weight 250 lbs 06/26/2025 BMI 35.87 kg/m2 06/26/2025 Encounters Encounter Location Date Provider [facility] [address] [place] [address] 10/23/2024 KENYON HARRIS [facility] [place] [address] [place], [place] [id number] 02/26/2025 KENYON HARRIS Nondisplaced fracture of fifth metatarsal bone, left foot, subsequent encounter for fracture with routine healing S92.355D and Left foot pain M79.672 [facility] [place] [address] [place], [place] [id number] 03/19/2025 KENYON HARRIS Left foot pain M79.672 ; Nondisplaced fracture of fifth metatarsal bone, left foot, subsequent encounter for fracture with delayed healing S92.355G ; Tendinitis of right foot M77.51 and Pain in right foot M79.671 [facility] [place] [facility] [address] [place] [id number] 04/02/2025 KENYON JULIOPATRIC Left foot pain M79.672 ; Nondisplaced fracture of fifth metatarsal bone, left foot, subsequent encounter for fracture with delayed healing S92.355G ; Tendinitis of right foot M77.51 and Pain in right foot M79.671 [facility] [place] [address] [place] [id number] 04/16/2025 KENYON STEVEN Left foot pain M79.672 ; Nondisplaced fracture of fifth metatarsal bone, left foot, subsequent encounter for fracture with delayed healing S92.355G ; Tendinitis of right foot M77.51 and Pain in right foot M79.671 [facility] [place] [address] [place] [id number] 04/28/2025 MIHIR SANDRA Left foot pain M79.672 ; Nondisplaced fracture of fifth metatarsal bone, left foot, subsequent encounter for fracture with delayed healing S92.355G ; Tendinitis of right foot M77.51 and Pain in right foot M79.671 [facility] [place] [facility] [address] [address] [place] [id number] 05/14/2025 KENYON STEVEN Left foot pain M79.672 ; Nondisplaced fracture of fifth metatarsal bone, left foot, subsequent encounter for fracture with delayed healing S92.355G ; Tendinitis of right foot M77.51 and Pain in right foot M79.671 [facility] [place] [facility] [address] [place] [id number] 06/04/2025 KENYON STEVEN Left foot pain M79.672 ; Nondisplaced fracture of fifth metatarsal bone, left foot, subsequent encounter for fracture with delayed healing S92.355G ; Tendinitis of right foot M77.51 and Pain in right foot M79.671 [facility] [address] [place], [place] [id number] 06/26/2025 KENYON KIMPATRIC Left foot pain M79.672 ; Nondisplaced fracture of fifth metatarsal bone, left foot, subsequent encounter for fracture with delayed healing S92.355G ; Tendinitis of right foot M77.51 and Pain in right foot M79.671 [facility] [place] [address] [address] [place] [id number] 07/24/2024 KENYONRACH KIMPATRIC Tailor's bunion of right foot M21.621 ; Bunionette of left foot M21.622 ; Pain in right foot M79.671 and Left foot pain M79.672 [facility] [place] [facility] [address] [place] [id number] 08/14/2024 KENYON STEVEN Tailor's bunion of right foot M21.621 and Pain in right foot M79.671 [facility] [place] [address] [place] [id number] 10/30/2024 KENYONRACH KIMPATRIC Tailor's bunion of right foot M21.621 ; Neoplasm of unspecified behavior of bone, soft tissue, and skin D49.2 ; Encounter for other specified surgical aftercare Z48.89 and Pain in right foot M79.671 [facility] [place] [address] [place] [id number] 11/06/2024 KENYONRACH HARRIS Tailor's bunion of right foot M21.621 ; Neoplasm of unspecified behavior of bone, soft tissue, and skin D49.2 and Encounter for other specified surgical aftercare Z48.89 [facility] [place] [address] [place] [id number] 12/04/2024 KENYON KIMPATRIC Adrien's bunionette, left M21.622 and Left foot pain M79.672 [facility] [place] [address] [place] [id number] 12/25/2024 KENYON HARRIS Nondisplaced fracture of fifth metatarsal bone, left foot, initial encounter for closed fracture S92.355A ; Tendinitis of right foot M77.51 ; Pain in right foot M79.671 and Left foot pain M79.672 [facility] [place] [address] [place] [address] [id number] 01/22/2025 KENYON STEVEN Tendinitis of right foot M77.51 ; Nondisplaced fracture of fifth metatarsal bone, left foot, subsequent encounter for fracture with routine healing S92.355D ; Pain in right foot M79.671 and Left foot pain M79.672 [facility] [place] [address] [place] [id number] 02/05/2025 KENYON STEVEN Tendinitis of right foot M77.51 ; Nondisplaced fracture of fifth metatarsal bone, left foot, subsequent encounter for fracture with routine healing S92.355D ; Pain in right foot M79.671 and Left foot pain M79.672 [facility] [place] [address] [id number] 10/24/2024 KENYON HARRIS [facility] [place] [address] [id number] 03/19/2025 KENYON HARRIS [facility] [place] [address] [id number] 10/01/2024 KENYON HARRIS Assessments Encounter Date Diagnosis [...] 04/02/2025 Left foot pain (ICD-10 - M79.672) 04/16/2025 Nondisplaced fracture of fifth metatarsal bone, left foot, subsequent encounter for fracture with delayed healing (ICD-10 - S92.355G) 04/16/2025 Left foot pain (ICD-10 - M79.672) 04/28/2025 Left foot pain (ICD-10 - M79.672) 05/14/2025 Left foot pain (ICD-10 - M79.672) 06/04/2025 Left foot pain (ICD-10 - M79.672) 06/26/2025 Left foot pain (ICD-10 - M79.672) 06/04/2025 Tendinitis of right foot (ICD-10 - M77.51) 06/26/2025 Nondisplaced fracture of fifth metatarsal bone, left foot, subsequent encounter for fracture with delayed healing (ICD-10 - S92.355G) Continue trilok 05/14/2025 Nondisplaced fracture of fifth metatarsal bone, left foot, subsequent encounter for fracture with delayed healing (ICD-10 - S92.355G) 06/04/2025 Nondisplaced fracture of fifth metatarsal bone, left foot, subsequent encounter for fracture with delayed healing (ICD-10 - S92.355G) A trilok ankle brace was dispensed for the pateint's left and the patient was instructed on it's use. 04/02/2025 Nondisplaced fracture of fifth metatarsal bone, left foot, subsequent encounter for fracture with delayed healing (ICD-10 - S92.355G) 04/28/2025 Nondisplaced fracture of fifth metatarsal bone, left foot, subsequent encounter for fracture with delayed healing (ICD-10 - S92.355G) Reviewed imaging with patient. She will need to continue CAM boot on her cruise. She understands and agrees. 04/16/2025 Tendinitis of right foot (ICD-10 - M77.51) 02/05/2025 Nondisplaced fracture of fifth metatarsal bone, left foot, subsequent encounter for fracture with routine healing (ICD-10 - S92.355D) 03/19/2025 Tendinitis of right foot (ICD-10 - M77.51) 01/22/2025 Pain in right foot (ICD-10 - M79.671) 12/25/2024 Pain in right foot (ICD-10 - M79.671) 11/06/2024 Encounter for other specified surgical aftercare (ICD-10 - Z48.89) 10/30/2024 Encounter for other specified surgical aftercare [...] Pain in right foot (ICD-10 - M79.671) 04/28/2025 Tendinitis of right foot (ICD-10 - M77.51) resolved 05/14/2025 Tendinitis of right foot (ICD-10 - M77.51) 06/04/2025 Pain in right foot (ICD-10 - M79.671) 06/26/2025 Tendinitis of right foot (ICD-10 - M77.51) 06/26/2025 Pain in right foot (ICD-10 - M79.671) 05/14/2025 Pain in right foot (ICD-10 - M79.671) 02/05/2025 Left foot pain (ICD-10 - M79.672) 04/28/2025 Pain in right foot (ICD-10 - M79.671) resolved 04/02/2025 Pain in right foot (ICD-10 - M79.671) 07/24/2024 Left foot pain (ICD-10 - M79.672) 03/19/2025 Other Continue cam walker. Due to it not being healed after 3 months we will precert bone stim 04/02/2025 Other Continue cam walker and bone stim 04/16/2025 Other Continue cam walker and bone stim. Old bone stim was worn out so a new one was dispensed 05/14/2025 Other Continue cam walker and bone stim. 06/04/2025 Other Continue cam walker and bone stim. 06/26/2025 Other Continue cam walker and bone stim. 08/14/2024 Other Patient with check with his [...] 5th MTH 12/25/2024 Other Continue cam walker. 01/22/2025 Other Continue cam walker. 02/05/2025 Other Continue cam walker. Plan Of Treatment Next Appt Details Provider Name:KENYON KIM PATRIC, 08/07/2025 11:30:00 AM, [address] [facility] [address], [place], [place], [id number], Insurance Providers Payer Name Payer Address Payer Phone Subscriber Number Group Number Insured Name Patient Relationship to Insured Coverage Start Date Coverage End Date [facility] ATTN CLAIMS [address] [place] [address] [id number] ANGELICA BLACK Self - patient is the insured [facility] [address] [place] [address] [id number] GISSEL BLACK Spouse - patient is the spouse of the insured Medical (General) History Medical History History ICD Code anxiety high blood pressure insomnia
--- OUTSIDE RECORDS SUMMARY | 2025-07-13 08:54 | XMS_ITS | Encounter Summary ---
Author Organization [facility] Address [address] [facility] [place] [address] Care Team Providers Care Cloth Bleaching Range Operator Chief Name Role Phone Unavailable Primary Care Provider Unavailabl e Encounter Details Date Type Department Care Team (Late st Contact Info) Description 03/02/2022 Lab Requisition [facility] [address] [place] [address] Niles George MD [address] [place] [address] Social History Tobacco Use Types Packs/Day Years [...] AM CDT) Case Report Dermatopathology Report Case: [id number] Authorizing Provider: Niles George MD Collected: 03/02/2022 12:00 AM Ordering Location: [facility] Received: 03/02/2022 05:15 PM [...] by the Dermatopathology Laboratory at [facility], directed by Dr. Miguel Viramontes. These tests need not be, and therefore are not, approved by the [place] Food and Drug Administration. The tests are used for clinical purposes. Billing Codes Specimen Charges Stain Charges 92597 1 2 6:16 PM CDT DERMATOPATHOLOGY LABORATORY Embedded Images 2 6:16 PM CDT DERMATOPATHOLOGY LABORATORY Pathology/Cytolog y TISSUE SPECIMEN FROM SKIN / Unknown 03/02/2022 03/02/2022 5:15 PM CDT us Niles George MD LAB - PATHOLOGY/CYTOLOGY ORDERAB LES Final Result DERMATOPATHOLOGY LABORATORY [facility] - Department of Dermatology [address], [address] Floor [address] [phone] documented in this encounter Visit Diagnoses Not on filedocumented in this encounter
--- OUTSIDE RECORDS SUMMARY | 2025-07-13 08:54 | XMS_ITS | Clinical Summary ---
Author Organization [facility] Address [address] [place] [address] Care Team Providers Care Casino Porter Name Role Phone Unavailable Primary Care Provider Unavailabl e Source Comments [facility],non-owned Affiliates and Associated Physician Practices is amultiple site organization consisting of ambulatory clinics and hospital sitesin [place], [place], [place] and [place]. This disclosure is being madepursuant to the Care Everywhere program and may not contain all information available regarding this patient. Last updated 18.[facility] Social History Tobacco Use Types Packs/Day Years [...] Health Maintenance Due Date Last Done Comments COLOGUARD (AGES 45-75) - COL ON CA SCREENING 1980 COLON MONITORING 1980 COLONOSCOPY - COLON CA SCREENING 1980 CT COLONOGRAPHY - COLON CA SCREENING 1980 Colorectal Cancer Screening 1980 FIT - COLON CA SCREENING 1980 FLEX SIG - COLON CA SCREENING 1980 LIPID TESTING 1980 MAMMOGRAM 1980 HIV SCREENING [...] patient's age to complete this topic Insurance [facility] [place] Address: [facility]S [address] [place] [address] [place] [address] [facility] SELF PAY NO INSURANCE Member Subscriber Plan / Payer (Ef fective for All Dates) Name:Holly Black Member ID:Not on file Relation to Subscriber:Not on file Subscriber ID:Not on file Payer ID:Not on file Group ID:Not on file Type:Self Pay Address: [facility] SELF PAY NO INSURANCE Member Subscriber Plan / Payer (Ef fective for All Dates) Name:Holly Black Member ID:Not on file Relation to Subscriber:Not on file Subscriber ID:Not on file Payer ID:Not on file Group ID:Not on file Type:Self Pay Address: [facility] SELF PAY NO INSURANCE Member Subscriber Plan / Payer (Ef fective for All Dates) Name:Holly Black Member ID:Not on file Relation to Subscriber:Not on file Subscriber ID:Not on file Payer ID:Not on file Group ID:Not on file Type:Self Pay Address: [place], [place]
--- OUTSIDE RECORDS SUMMARY | 2025-07-13 08:56 | XMS_ITS | Data Portability ---
Author Organization [place] [facility] OFFICE Address [address] [place] [address] Care Team Providers Care Placement Secretary Name Role Phone BLACK LICK Primary Care Provider Assessment Encounter Date Assessment [...] Treatment Reminders Order Date Submit Date Provider Name Organization Details Last Modified By Last Modified Time Details Appointments None record ed. Lab None record ed. Referral None record ed. Procedures None record ed. Surgeries None record ed. Imaging None record ed. MedicationOrders None record ed. VaccineOrders None record ed. Patient TargetsNo targets recorded. Patient Instructions Encounter Date Encounter Id Patient Instructions Last Modified By Organization Details Last Modified Time 12/06/2023 [id number] Low cholesterol diet advised Low sodium diet advised. eyassin Not available 12/06/2023 10:38:58 06/04/2023 [id number] Low cholesterol diet advised Low sodium diet advised. eyassin Not available 06/04/2023 10:26:59 Reason for Referral None Reported. Results Created Date Observation Date Name Description Value Unit Range Abnormal Flag Specimen Type Note LastModifiedBy Organization Detail LastModifiedTime 02/06/2023 02/06/2023 electrocardiogram No observation recorded. Fay Carrero Not Available 02/07/2023 11:05:46 03/24/2023 03/24/2023 lexiscan cardiolite stress test (PROC) No observation recorded. Fay Carrero Not Available 05/03/2023 14:51:43 07/23/2023 07/23/2023 US, echocardiogram ECHO 07/23/23:LV chamber dize is normal.LVEF 60-65%, the aortic valve is mildly calcifiied, the mitral valve leaflet is mildly thickened, there is minimal pulmonic regurgitatio n. Kenneth Grant [facility] , [address] , [place] , [address], [place] , 08/05/2023 14:55:01 12/06/2023 12/06/2023 electrocardiogram No observation recorded. Kady Ambrocio Not Available 12/18/2023 18:13:40 06/03/2024 06/03/2024 electrocardiogram No observation recorded. Fay Carrero Not Available 06/03/2024 18:04:05 Result Notes None recorded. Problems Name Problem SNOMED Code Status Onset Date Resolution Date Notes Provider Name and Address Organization Details Recorded Time Edema 556440257 Active 2022 Kenneth Grant null, [place] - [facility] 3 12:39:45 Atypical chest pain 276485779 Active 2022 [place] [facility] 3 12:39:54 Dyspnea on exertion 56532380 Active 2022 [place] [facility] 3 12:40:00 Dyslipidemia 299007115 Active 2023 Kenneth hong, [place] - [facility] 4 19:58:53 Essential hypertension 10825798 Active 2023 Kenneth [place], [place] [facility] 4 19:59:11 History of cerebrovascula r accident 484416146 Active 2023 Kenneth Grant [facility] 4 19:59:27 Problem Notes None recorded. Procedures Surgical History Date Name Laterality Status Provider Name and Address Organization Details Recorded Time operation on stomach completed Cooper Messally [facility] 05/25/2023 12:52:55 Imaging Results Imaging Date Name Status LastModifiedBy Organization Detail LastModifiedTime 3 electrocardiogram completed Fay Carrero Not Available 023 11:05:46 3 lexiscan cardiolite stress test (PROC) completed Fay Carrero Not Available 05/03/2023 14:51:43 4 US, echocardiogram completed [facility] , [address] [place], [place] [address] , [place] , [address], [place] , 08/05/2023 14:55:01 4 electrocardiogram completed Kady Ambrocio Not Available 024 18:13:40 4 electrocardiogram completed Fay Carrero Not Available 024 18:04:05 Procedure Notes None recorded. Medical Equipment None Reported. Allergies No known drug allergies Medications Name Authored On Sig Start Date Stop Date Status Note Indication Fill Status Repeat Number Dispense Quantity LastModified by Organization Details LastModified Time amitr iptyl ine 25 mg table t 3 17:16:20 active Not Available Not availab le 0 Not Available Not Available [facility] 02/06/2023 17:16:20 aripi prazo le 5 mg table t 3 17:16:20 TAKE 1 TABL ET BY MOUT H EVER Y MORN ING active Not Available Not availab le 0 Not Available Not Available [facility] 02/06/2023 17:16:20 cyano cobal rao (vit B-12) 1,000 mcg/m L injec tion solut ion 3 17:16:20 active Not Available Not availab le 0 Not Available Not Available [facility] 02/06/2023 17:16:20 escit alopr am 10 mg table t 3 17:16:20 active Not Available Not availab le 0 Not Available Not Available [facility] 02/06/2023 17:16:20 ID NOW COVID -19 Test Kit 3 17:16:20 TEST DIRE CTED TODA Y active Not Available Not availab le 0 Not Available Not Available [facility] 02/06/2023 17:16:20 ketor olac 10 mg table t 3 17:16:20 TAKE 1 TABL ET BY MOUT H EVER Y 6 HOUR S FOR 2 DAYS NEED ED FOR PAIN active Not Available Not availab le 0 Not Available Not Available [facility] 02/06/2023 17:16:20 Mucin ex 600 mg table t, exten ded relea se 3 17:16:20 active Not Available Not availab le 0 Not Available Not Available [facility] 02/06/2023 17:16:20 proch lorpe razin e bridgette te 5 mg table t 3 17:16:20 active Not Available Not availab le 0 Not Available Not Available [facility] 02/06/2023 17:16:20 propr anolo l 10 mg table t 3 17:16:20 active Not Available Not availab le 0 Not Available Not Available [facility] 02/06/2023 17:16:20 Vanic chavez topic al 3 17:16:20 active Not Available Not availab le 0 Not Available Not Available [facility] 02/06/2023 17:16:20 dulox etine 30 mg capsu le,de layed relea se 3 08:27:08 active Not Available Not availab le 0 Not Available Not Available [facility] 02/25/2023 08:27:08 atorv astat in 40 mg table t 3 17:16:20 05/25 aborted Not Available Not availab le 0 Not Available [facility] 05/25/2023 12:42:54 escit alopr am 20 mg table t 3 17:16:20 05/25 aborted Not Available Not availab le 0 Not Available [facility] 05/25/2023 12:43:48 dival proex 250 mg table t,del ayed relea se 3 17:16:20 05/25 aborted Not Available Not availab le 0 Not Available [facility] 05/25/2023 12:44:10 dival proex ER 250 mg table t,ext ended relea se 24 hr 3 05:20:46 active Not Available Not availab le 0 Not Available [facility] 06/04/2023 05:20:46 furos emide 20 mg table t 3 05:20:46 active Not Available Not availab le 0 Not Available Not Available [facility] 06/04/2023 05:20:46 Nurte c ODT 75 mg disin tegra ting table t 3 05:20:46 active Not Available Not availab le 0 Not Available Not Available [facility] 06/04/2023 05:20:46 azith romyc in 250 mg table t 3 05:20:46 10/13 aborted Not Available Not availab le 0 Not Available [facility] 10/14/2023 16:05:03 aspir in 81 mg table t,del ayed relea se 4 05:10:25 active Not Available Not availab le 0 Not Available [facility] 12/06/2023 05:10:25 eszop iclon e 2 mg table t 4 05:10:25 TAKE 1 TABL ET BY MOUT H EVER Y DAY AT [place] NEED ED FOR INSO MNIA active Not Available Not availab le 0 Not Available [facility] 12/06/2023 05:10:25 ezeti mibe 10 mg table t 4 05:10:25 active Not Available Not availab le 0 Not Available Not [facility] 12/06/2023 05:10:25 hydro xyzin e pamoa te 25 mg capsu le 4 05:10:25 TAKE 1 CAPS ULE BY MOUT H FOUR TIME S DEMETRIUS Y NEED ED FOR ANXI ETY active Not Available Not availab le 0 Not Available Not Available [facility] 12/06/2023 05:10:25 omepr azole 20 mg capsu le,de layed relea se 4 05:10:25 active Not Available Not availab le 0 Not Available Not Available [facility] 12/06/2023 05:10:25 trazo done 100 mg table t 4 05:10:25 active Not Available Not availab le 0 Not Available Not Available [facility] 12/06/2023 05:10:25 methy lpred nisol one 4 mg table t 4 07:51:25 active Not Available Not availab le 0 Not Available Not Available [facility] 02/10/2024 07:51:25 phent ermin e 30 mg capsu le 4 07:51:25 TAKE 1 CAPS ULE BY MOUT H EVER Y DAY active Not Available Not availab le 0 Not Available Not Available [facility] 02/10/2024 07:51:25 zolpi dem 5 mg table t 4 07:51:25 active Not Available Not availab le 0 Not Available Not Available [facility] 02/10/2024 07:51:25 bupre norph ine 8 mg-na loxon e 2 mg subli ngual table t 4 07:53:42 PLAC E 1 TABL ET UNDE R TONG UE THRE E TIME S DEMETRIUS Y FOR PAIN active Not Available Not availab le 0 Not Available Not Available [facility] 02/17/2024 07:53:42 eszop iclon e 1 mg table t 3 17:16:20 TAKE 1 TABL ET BY MOUT H EVER Y DAY AT [place] X 1 WEEK . 2ND WEEK TAPE R DOSE 06/02 aborted Not Available Not availab le 0 Not Available [facility] [place] [facility] 06/01/2024 18:25:58 methy lpred nisol one 4 mg table ts in a dose pack 3 17:16:20 FOLL OW PACK AGE DIRE CTIO NS 06/02 aborted Not Available Not availab le 0 Not Available [facility] [place] [facility] 06/01/2024 18:26:23 trazo done 50 mg table t 3 17:16:20 TAKE 1 TABL ET BY MOUT H AT [place] FOR 1 WEEK 06/02 aborted Not Available Not availab le 0 Not Available Kenneth Altamir[place]ally [place] - [facility] 06/01/2024 18:26:40 lidoc morgan 5 % topic al patch 4 05:06:52 active Not Available Not availab le 0 Not Available Not Available [facility] 06/03/2024 05:06:52 predn isolo ne aceta te 1 % eye drops ,susp ensio n 4 05:06:52 active Not Available Not availab le 0 Not Available Not Available [facility] 06/03/2024 05:06:52 amoxi cilli n 875 mg-po tassi um clavu lanat e 125 mg table t 3 17:16:20 06/03 aborted Not Available Not availab le 0 Not Available Fay Magan [facility] 06/03/2024 11:41:51 Aller gy Relie f (fexo fenad ine) 180 mg table t 5 06:23:17 active Not Available Not availab le 0 Not Available Not Available [facility] 07/27/2024 06:23:17 doxyc yclin e hycla te 100 mg capsu le 5 06:23:17 TAKE 1 CAPS ULE BY MOUT H TWIC E DEMETRIUS Y WITH FOOD active Not Available Not availab le 0 Not Available Not Available [facility] 07/27/2024 06:23:17 famot idine 40 mg table t 5 06:23:17 TAKE 1 TABL ET BY MOUT H DEMETRIUS Y FOR 10 DAYS active Not Available Not availab le 0 Not Available Not Available [facility] 07/27/2024 06:23:17 predn isone 10 mg table t 5 06:23:17 TAKE 1 TABL ET BY MOUT H TWIC E DEMETRIUS Y FOR 10 DAYS active Not Available Not availab le 0 Not Available Not Available [facility] 07/27/2024 06:23:17 Resta sis 0.05 % eye drops in a dropp erett e 5 06:23:17 INST ILL 1 DROP BOTH EYES TWIC E DEMETRIUS Y active Not Available Not availab le 0 Not Available Not Available [facility] 07/27/2024 06:23:17 buspi isidro 15 mg table t 5 07:53:58 TAKE 1 TABL ET BY MOUT H THRE E TIME S DEMETRIUS Y active Not Available Not availab le 0 Not Available Not Available [facility] - External Data Service - prod 01/18/2025 07:53:58 cyclo benza la 10 mg table t 5 07:53:58 TAKE 1 TABL ET BY MOUT H THRE E TIME S DEMETRIUS Y NEED ED FOR SPAS M active Not Available Not availab le 0 Not Available Not Available [facility] - External Data Service - prod 01/18/2025 07:53:58 furos emide 40 mg table t 5 07:53:58 TAKE 1 TABL ET BY MOUT H EVER Y DAY active Not Available Not availab le 0 Not Available Not Available [facility] - External Data Service - prod 01/18/2025 07:53:58 nebiv olol 5 mg table t 5 07:53:58 TAKE 1 TABL ET BY MOUT H EVER Y DAY active Not Available Not availab le 0 Not Available Not Available [facility] - External Data Service - prod 01/18/2025 07:53:58 topir amate 50 mg table t 5 07:53:58 TAKE 1 TABL ET BY MOUT H TWIC E DEMETRIUS Y active Not Available Not availab le 0 Not Available Not Available [facility] - External Data Service - prod 01/18/2025 07:53:58 Aimov ig Autoi nject or 70 mg/mL subcu taneo us auto- injec tor 5 07:53:59 ADMI NIST ER 1 ML UNDE R THE SKIN EVER Y 30 DAYS active Not Available Not availab le 0 Not Available Not Available [facility] - External Data Service - prod 01/18/2025 07:53:59 dulox etine 60 mg capsu le,de layed relea se 5 07:53:59 TAKE 1 CAPS ULE BY MOUT H EVER Y DAY active Not Available Not availab le 0 Not Available Not Available [facility] - External Data Service - prod 01/18/2025 07:53:59 eszop iclon e 3 mg table t 5 07:53:59 active Not Available Not availab le 0 Not Available Not Available [facility] - External Data Service - prod 01/18/2025 07:53:59 levot hyrox ine 137 mcg table t 5 07:53:59 TAKE 1 TABL ET BY MOUT H EVER Y MORN ING active Not Available Not availab le 0 Not Available Not Available [facility] - External Data Service - prod 01/18/2025 07:53:59 melox icam 15 mg table t 5 07:53:59 TAKE 1 TABL ET BY MOUT H DEMETRIUS Y active Not Available Not availab le 0 Not Available Not Available [facility] - External Data Service - prod 01/18/2025 07:53:59 piloc arpin e 5 mg table t 5 07:53:59 TAKE 1 TABL ET BY MOUT H THRE E TIME S DEMETRIUS Y active Not Available Not availab le 0 Not Available Not Available [facility] - External Data Service - prod 01/18/2025 07:53:59 zolpi dem 10 mg table t 5 07:53:59 TAKE 1 TABL ET BY MOUT H EVER Y DAY AT [place] NEED ED FOR SLEE P active Not Available Not availab le 0 Not Available Not Available [facility] - External Data Service - prod 01/18/2025 07:53:59 atorv astat in 80 mg table t 5 07:54:00 TAKE 1 TABL ET BY MOUT H EVER Y DAY active Not Available Not availab le 0 Not Available Not Available [facility] - External Data Service - prod 01/18/2025 07:54:00 bupre norph ine 8 mg-na loxon e 2 mg subli ngual film 5 07:54:00 DISS OLVE 1 FILM UNDE R THE TONG UE THRE E TIME S DEMETRIUS Y active Not Available Not availab le 0 Not Available Not Available [facility] - External Data Service - prod 01/18/2025 07:54:00 hydro xyzin e pamoa te 50 mg capsu le 5 07:54:00 TAKE 1 CAPS ULE BY MOUT H FOUR TIME S DEMETRIUS Y NEED ED FOR ANXI ETY active Not Available Not availab le 0 Not Available Not Available [facility] - External Data Service - prod 01/18/2025 07:54:00 prega balin 150 mg capsu le 5 07:54:00 TAKE 1 CAPS ULE BY MOUT H 3 TIME S A DAY NEED ING FOR NERV E PAIN active Not Available Not availab le 0 Not Available Not Available [facility] - External Data Service - prod 01/18/2025 07:54:00 sumat ripta n 100 mg table t 5 07:54:00 TAKE 1 TABL ET BY MOUT H TWIC E DEMETRIUS Y NEED ED FOR MIGR MORGAN . TAKE 1 TABL ET BY MOUT H AT ONSE T AND 1 TABL ET 2 HOUR S LATE R. MAX OF 2 TABL ETS IN 24 HOUR S active Not Available Not availab le 0 Not Available Not Available [facility] - External Data Service - prod 01/18/2025 07:54:00 fluco nazol e 150 mg table t 5 07:54:01 TAKE 1 TABL ET BY MOUT H DEMETRIUS Y active Not Available Not availab le 0 Not Available Not Available [facility] - External Data Service - prod 01/18/2025 07:54:01 fosfo mycin trome thami ne 3 gram oral packe t 5 07:54:01 MIX WITH 3-4 OZ OF COOL WATE R AND DRIN K FOR 1 DOSE active Not Available Not availab le 0 Not Available Not Available [facility] - External Data Service - prod 01/18/2025 07:54:01 oxyco done 5 mg table t 5 07:54:01 TAKE 1 TABL ET BY MOUT H EVER Y 6 HOUR S NEED ED FOR PAIN active Not Available Not availab le 0 Not Available Not Available [facility] - External Data Service - prod 01/18/2025 07:54:01 sulfa metho xazol e 800 mg-tr imeth oprim 160 mg table t 5 07:54:01 TAKE 1 TABL ET BY MOUT H EVER Y 12 HOUR S FOR 5 DAYS active Not Available Not availab le 0 Not Available Not Available [facility] - External Data Service - prod 01/18/2025 07:54:01 ondan setro n 4 mg disin tegra ting table t 5 07:54:02 DISS OLVE 1 TABL ET ON THE TONG UE EVER Y 8 HOUR S NEED ED FOR NAUS EA OR VOMI TING active Not Available Not availab le 0 Not Available Not Available [facility] - External Data Service - prod 01/18/2025 07:54:02 phent ermin e 37.5 mg table t 5 07:54:02 TAKE 1 TABL ET BY MOUT H DEMETRIUS Y active Not Available Not availab le 0 Not Available Not Available [facility] - External Data Service - prod 01/18/2025 07:54:02 clobe tasol 0.05 % topic al ointm ent 5 07:54:03 APPL Y TOPI CALL Y TO HAND S 1-2 TIME S DEMETRIUS Y IN ROTA TION WITH MUPI DUDLEY N FOR MORE THAN 2 WEEK S AT A TIME active Not Available Not availab le 0 Not Available Not Available [facility] - External Data Service - prod 01/18/2025 07:54:03 hydro xychl oroqu ine 200 mg table t 5 07:54:03 TAKE 1 TABL ET BY MOUT H DEMETRIUS Y active Not Available Not availab le 0 Not Available Not Available [facility] - External Data Service - prod 01/18/2025 07:54:03 mupir ocin 2 % topic al ointm ent 5 07:54:03 APPL Y IN NOSE ROTA TION WITH TACR OLIM US FOR NO MORE THAN 2 WEEK S AT A TIME . TAKE A FEW DAYS BEFO RE RESU MATIAS FOR FLAR ES. active Not Available Not availab le 0 Not Available Not Available [facility] - External Data Service - prod 01/18/2025 07:54:03 Qulip ta 60 mg table t 5 07:00:32 active Not Available Not availab le 0 Not Available Not Available [facility] - External Data Service - prod 01/25/2025 07:00:32 tacro limus 0.1 % topic al ointm ent 5 07:00:32 APPL Y TO AFFE CTED AREA S OF THE FACE ONE TO TWO TIME S DEMETRIUS Y UNTI L SANJANA R. THEN USE NEED ED FOR FLAR ES active Not Available Not availab le 0 Not Available Not Available [facility] - External Data Service - prod 01/25/2025 07:00:32 Zepbo und 2.5 mg/0. 5 mL subcu taneo us pen injec tor 5 07:00:[address] 2.5 ML UNDE R THE SKIN ONCE A WEEK DIRE CTED active Not Available Not availab le 0 Not Available Not Available [facility] - External Data Service - prod 01/25/2025 07:00:32 Vitals Date Recorded Body height Body mass index (BMI) Body weight Heart rate Oxygen saturation Systolic And Diastolic Provider Name and Address Organization Details Last Updated DateTime 4 177.8 cm 41.1 kg/m2 512973. 93 g 76 /min 97 % 108/72 mm[Hg] Kady Ambrocio [facility] 4 10:18:10 Date Recorded Body height Body mass index (BMI) Body weight Heart rate Respiratory rate Oxygen saturation Provider Name and Address Organization Details Last Updated DateTime 3 177.8 cm 45.6 kg/m2 548512. 37 g 102 /min 18 /min 93 % Zen Roche [facility] 3 18:10:41 Date Recorded Body height Body mass index (BMI) Body weight Heart rate Oxygen saturation Systolic And Diastolic Provider Name and Address Organization Details Last Updated DateTime 4 177.8 cm 40.3 kg/m2 478041. 46 g 107 /min 95 % 151/97 mm[Hg] Fay Carrero [facility] 4 11:41:36 Date Recorded Body height Heart rate Oxygen saturation Body mass index (BMI) Body weight Systolic And Diastolic Provider Name and Address Organization Details Last Updated DateTime 3 177.8 cm 84 /min 87 % 42.9 kg/m2 602545. 12 g 139/86 mm[Hg] Fay Carrero [facility] 3 09:40:23 Social History Social History Observation Description Date Observed Sex Unknown 02/05/2025 Legal Sex Female Status Not (finding) 07/13/20 25 No social history survey screeners recorded No social history SDOH screeners recorded Functional Status None recorded. No Functional Screening assessment recorded No Functional SDOH screeners recorded Mental Status None recorded. No Mental Screening assessment recorded No Mental SDOH screeners recorded Family History Nothing Reported. Medical History No medical history recorded. Gynecological HistoryNo gynecological history recorded. Obstetrics History GPAL:G 0 P 0 0 0 0 Past Encounters Encounter ID Performer Location Encounter Start Date Encounter Closed Date Diagnosis/Indication Diagnosis SNOMED-CT Code Diagnosis ICD10 Code Diagnosis IMO Codes Diagnosis Note [id number] Sixto Feldman MD [place] [facility] [place] [address] 02/06/2023 17:16:06 02/06/2023 18:36:32 Edema 921882503 R60.9 will start lasix 20 mg dailywe might consider jardiance in the future Atypical chest pain 1025 96252 R07.89 Treadmill Myoview Stress test, has high [place] Risk score. Has Known CAD, or CAD risk equivalent . To look for any ischemia. Dyspnea on exertion 6084 5006 R06.09 will do echo to the see the structure of the heart [id number] Sixto Feldman MD [place] [facility] [place] [address] 06/04/2023 09:27:03 06/04/2023 10:31:41 Edema 500380304 R60.9 continue lasix 40 mg dailywe might consider jardiance in the future Dyspnea on exertion 6084 5006 R06.09 will do echo to the see the structure of the heart Atypical chest pain 1025 92144 R07.89 negative stress test ontin ue with monitoring continue with baby aspirin Dyslipidemia 752277698 E 78.5 *Last LDL was 107 done on 03/29/23.P t takes lipitor 80 mg daily.will start her on zetia 10 mg dailyTG Is 223 done 03/2023 add fish oil BID daily Essential hypertension 38532708 I10 BP mildly elevated today, she will bring number with her next timecontin ue with bystolic 5 mg daily History of cerebrovascular accident 737946193 Z86.73 continue with aspirin [id number] Sixto Feldman MD [place] [facility] [address] [place] [address] 12/06/2023 10:00:34 12/06/2023 10:41:39 Edema 404012195 R60.9 continue lasix 40 mg daily Dyslipidemia 337910829 E 78.5 *Last LDL was 107 done on 03/29/23.P t takes lipitor 80 mg daily.cont inue with zetia 10 mg dailyTG Is 223 done 03/2023 continue fish oil BID dailyrepea t lipid panel Essential hypertension 47543112 I10 BP is well controlled continue with bystolic 5 mg daily History of cerebrovascular accident 727075178 Z86.73 continue with aspirin [id number] Sixto Feldman MD [place] [facility] [address] [place] [address] 06/03/2024 11:18:39 06/03/2024 12:28:23 Edema 863729574 R60.9 continue lasix 40 mg daily Dyslipidemia 610242294 E 78.5 *Last LDL was 107 done on 03/29/23.P t takes lipitor 80 mg daily.cont inue with zetia 10 mg dailyTG Is 223 done 03/2023 continue fish oil BID dailyrepea t lipid panel Essential hypertension 37105223 I10 BP is well controlled continue with bystolic 5 mg daily History of cerebrovascular accident 115608085 Z86.73 continue with aspirin Health Concerns Section Related Observation LastModified by Organization Detai ls LastModified Time None Recorded Concern Status LastModified by Organization Details LastModified Time None Recorded SDOH Concern Status LastModified by Organization Detai ls LastModified Time None Recorded Advance Directives Directive None Recorded Payers Insurance Date Sequence Insurance Name Policy Number Policy Wilks Covered Member ID Wilks Member ID Guarantor Name 06/03/2024 2 [facility] () Holly Black [id number] Holly Black 01/29/2025 1 [employer] [id number] Damir Black [id number] Holly Black Notes Date Note Type Note Provider Name and Address Organization Details Recorded Time 02/06/2023 text/html 02/07/23CC: Lower exremity olivaHolly BLACK is 42 years-old Female with h/o stroke (2013) , S/p gastric bypass surgery (2009) , hypertension, hyperlipidemia, PFO s/p closure , [...] .Pt takes. Sixto Feldman MD [address] [place], [address], [facility] 02/06/2023 18:37:01 06/04/2023 text/html 05/31/23CC : Cardiac follow up dyspnea on exertionHolly BLACK is 43 years-old Female with h/o stroke (2012) , S/p gastric bypass surgery (2009) , hypertension, hyperlipidemia, PFO s/p closure , [...] 0.70 BUN 11 GL 93 CA 9.7,CK Total-159,RWCG6J-5.3,L IPID-CHOL 187 HDL 42 LDL 107 TRIG 223 *Had Adequate Stress with Lexiscan on 03/24/23 with Normal LV systolic function. LVEF: 60%. Previously:Last visit came for cardiac evaluation due to Edema. She occasional with chest pain and dyspnea on exertion. JO Chew - [facility] 06/04/2023 10:27:10 12/06/2023 text/html 12/06/23CC : Cardiac follow up chest painHolly BLACK is 43 [...] 0.70 BUN 11 GL 93 CA 9.7,CK Total-159,GZNM5G-6.3,L IPID-CHOL 187 HDL 42 LDL 107 TRIG 223 *Had Adequate Stress with Lexiscan on 03/24/23 with Normal LV systolic function. LVEF: 60%. She occasional with chest pain and dyspnea on exertion. SEAN hong, [place] - [facility] 12/06/2023 10:39:03 06/03/2024 [...] systolic function. LVEF: 60%. Sixto Feldman MD [address] [place], [address], [facility] 06/03/2024 12:24:17 Care Team Name Role Member ID Specialty Address Phone [facility] Primary Care Provider [phone], [place] OBGyn Episode No OBEpisode recorded.
[2025-07-13 08:58] VITALS: BP 141/81; PULSE 106; RESP 12; TEMP 36.4; O2SAT 100
--- NOTE | 2025-07-13 09:30 | ED.URI ---
HPI - URI/Sore Throat General Chief Complaint: Upper Respiratory Infection Stated Complaint: Upper Respiratory Infection Time Seen by Provider: 07/13/25 09:05 Source: patient and RN notes reviewed Mode of arrival: ambulatory Limitations: no limitations History of Present Illness HPI Narrative: 45-year-old female patient presents today with a 5 day history of chest congestion 3 day history of body aches, cough, sore throat cough postnasal drip, mild shortness of breath. Denies fever. She has tried Mucinex and Tylenol without much relief. Patient is concerned she may have pneumonia as she has had it twice in the past, most recently this past January and had have subsequent chest tube for pleural effusion. Related Data Home Medications ?Medication ?Instructions ?Recorded ?Confirmed ?Last Taken ?Type aspirin 81 mg tablet,delayed 81 mg PO DAILY 11/21/22 06/26/25 10/21/24 History release (Adult Aspirin Regimen) fexofenadine 180 mg tablet 180 mg PO DAILY 11/21/22 06/26/25 10/22/24 History (Robyn Allergy) omeprazole 20 mg capsule,delayed 20 mg PO DAILY 11/21/22 06/26/25 10/22/24 History release sumatriptan succinate 100 mg tablet See Rx Instructions PO .COMPLEX 11/21/22 06/26/25 Unknown History atogepant 60 mg tablet (Qulipta) 60 mg PO DAILY 06/13/24 06/26/25 10/22/24 History cyclobenzaprine 10 mg tablet 10 mg PO TID 06/13/24 06/26/25 10/22/24 History erenumab-aooe 70 mg/mL 70 mg subcut DIRECTED 06/13/24 06/26/25 Unknown History subcutaneous auto-injector (Aimovig Autoinjector) trazodone 100 mg tablet 100 mg PO DIRECTED PRN insomnia 06/13/24 06/26/25 Unknown History lidocaine 1.8 % topical patch 1 patch topical DAILY 06/26/24 06/26/25 Unknown History omega 2-hpo-wha-fish oil 60 mg-90 1 cap PO DAILY 06/26/24 06/26/25 10/20/24 History mg-500 mg capsule (Fish Oil) eszopiclone 3 mg tablet (Lunesta) 3 mg PO QHS 02/26/25 06/26/25 Unknown History pregabalin 150 mg capsule (Lyrica) 150 mg PO TID 02/26/25 06/26/25 Unknown History sertraline 100 mg tablet 100 mg PO DAILY 06/02/25 06/26/25 Unknown History Allergies Allergy/AdvReac Type Severity Reaction Status Date / Time No Known Allergies Allergy Verified 07/13/25 09:03 [facility] Past Medical History Medical History Pleural effusion Thyroid disorder Stroke Migraine Anxiety Allergies Insomnia Chronic pain Fibromyalgia Radial head fracture, closed Distal radius fracture, right Thompson's neuroma of right foot (~2016) Abdominal hernia (~2011) Previous gastric bypass complicating , antepartum (~2007) Surgical History Surgical History H/O hernia repair (~2011) History of gastric bypass (~2008) Hx of cholecystectomy (~2009) History of (~2007) Family History Family History Mother Thyroid disorder Hypertension Father Depression Anxiety Diabetes mellitus Hypertension Sibling Depression Anxiety Thyroid disorder Grandparent Heart disease Hypertension Depression Anxiety Social History Social History Smoking status: Never smoker Alcohol intake: never Substance use: never Substance use type: does not use Lack of Transportation: No Lack of Food: Never True Current Housing: I Have Housing Concerned About Future Housing: No Difficulty Paying Gas/Electric Bills: No Difficulty Paying for Meds: No Currently Unemployed: No Education: Associate Degree Difficulty w/ Childcare or Family Care: No Living arrangements: with family Occupation/Education: occupation 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 Please see nursing chart for further information. There is no relevant family history pertinent to the presenting complaint Exam Narrative: GENERAL: Mildly ill-appearing, well-nourished, and in no acute distress. HEAD: Normocephalic, atraumatic. EYES: EOMI. No redness or drainage. Conjunctivae normal. ENT: Mucous membranes pink and moist. Nares clear. No rhinorrhea. TMs normal bilaterally. Throat normal. Uvula midline. NECK: Normal AROM. Supple. No lymphadenopathy. CHEST: No respiratory distress. Slight crackle in the right lower lobe, otherwise clear. HEART: Regular rate and rhythm. No murmur appreciated. EXTREMITIES: Normal range of motion. No edema. SKIN: Warm, dry, no rash. Capillary refill normal. Normal skin turgor. NEURO: No focal deficits. Alert and oriented x3. Gait steady. PSYCH: Anxious Course Course Level of Care: Express Care Visit Vital Signs Vital signs: Vital Signs Temperature 97.5 F L 07/13/25 08:58 Pulse Rate 106 H 07/13/25 08:58 Respiratory Rate 12 07/13/25 08:58 Blood Pressure 141/81 H 07/13/25 08:58 Pulse Oximetry 100 07/13/25 08:58 Oxygen Delivery Room Air 07/13/25 08:58 Temperature 97.5 F L 07/13/25 08:58 Pulse Rate 106 H 07/13/25 08:58 Respiratory Rate 12 07/13/25 08:58 Blood Pressure 141/81 H 07/13/25 08:58 Pulse Oximetry 100 07/13/25 08:58 Oxygen Delivery Room Air 07/13/25 08:58 Reviewed MDM MDM Narrative Medical decision making narrative: 45-year-old female patient presents today with a 5 day history of chest congestion 3 day history of body aches, cough, sore throat cough postnasal drip, mild shortness of breath. Denies fever. She has tried Mucinex and Tylenol without much relief. Patient is concerned she may have pneumonia as she has had it twice in the past, most recently this past January and had have subsequent chest tube for pleural effusion. Upon exam, patient is mildly ill appearing, anxious. Slight crackling in the right lower lobe, otherwise clear. Patient is a for chest x-ray. Chest x-ray negative. COVID and flu negative Symptoms likely viral in etiology. Discussed [id number] medication use and duration of illness. Patient will be prescribed a short course of some prednisone to help with her shortness of breath. Anticipatory guidance given. Vital signs stable. Patient agrees with plan. Differential Diagnosis Differential Diagnosis: URI, viral syndrome, influenza, COVID, pneumonia Lab Data [facility] Lab Attestation statement: I personally reviewed the patient's lab results. Lab results narrative: Negative, influenza negative Imaging Data Radiologist's impression: ITS Impressions Chest X-Ray 07/13/25 09:40 IMPRESSION: 1: NO ACUTE CARDIOPULMONARY DISEASE. Critical Care Time Critical Care Time Critical Care Time: No Discharge Plan Discharge Clinical Impression: Viral syndrome Patient Disposition: Home Condition: Stable Instructions: Viral Syndrome (ED) Additional Instructions: Your influenza and COVID swabs are negative. Your chest x-ray is negative for pneumonia. Symptoms are likely due to a viral illness, which is not treated with antibiotics. Virus symptoms can last for up to 7-10days. Take Tylenol or ibuprofen for pain or fever. Take the prednisone as prescribed. Continue the Mucinex. Rest and stay hydrated. Follow up with your PCP in 7 days if symptoms are not improving. Go to the ER immediately if you develop shortness of breath, difficulty swallowing, or any other concerning symptoms. Patient Language: Armenian Prescriptions: New prednisone 20 mg tablet 40 mg PO DAILY 5 Days Qty: 10 0RF No Action cyclobenzaprine 10 mg tablet 10 mg PO TID trazodone 100 mg tablet 100 mg PO DIRECTED PRN (Reason: insomnia) Aimovig Autoinjector 70 mg/mL auto-injector 70 mg SUBCUT DIRECTED Qulipta 60 mg tablet 60 mg PO DAILY omeprazole 20 mg capsule,delayed release(DR/EC) 20 mg PO DAILY sumatriptan succinate 100 mg tablet See Rx Instructions PO .COMPLEX Rx Instructions: take 1 tab at onset of headache; if no relief, may repeat 1 tab after at least 2 hrs; max = 2 tabs/24 hrs PO fexofenadine [Robyn Allergy] 180 mg tablet 180 mg PO DAILY aspirin [Adult Aspirin Regimen] 81 mg tablet,delayed release (DR/EC) 81 mg PO DAILY pregabalin [Lyrica] 150 mg capsule 150 mg PO TID omega 7-fat-arj-fish oil [Fish Oil] 60-90-500 mg capsule 1 cap PO DAILY lidocaine 1.8 % adhesive patch,medicated 1 patch topical DAILY Rx Instructions: leave on most painful area for up to 12 hrs eszopiclone [Lunesta] 3 mg tablet 3 mg PO QHS sertraline 100 mg tablet 100 mg PO DAILY Zepbound 7.5 mg/0.5 mL pen injector 7.5 mg subcut WEEKLY Qty: 2 0RF fluticasone propionate [Flonase Allergy Relief] 50 mcg/actuation spray,suspension 1 spray intranasal BID Qty: 48 0RF Rx Instructions: administer into each nostril pilocarpine HCl 5 mg tablet 5 mg PO TID Qty: 270 2RF levothyroxine [Synthroid] 137 mcg tablet 137 mcg PO DAILY Qty: 90 2RF topiramate 50 mg tablet See Rx Instructions .ROUTE .COMPLEX Qty: 270 2RF Dose Instruction: TAKE 1 TABLET BY MOUTH THREE TIMES DAILY Rx Instructions: TAKE 1 TABLET BY MOUTH THREE TIMES DAILY alprazolam [Xanax] 0.5 mg tablet 0.5 mg PO BID Qty: 30 0RF buprenorphine-naloxone 8-2 mg tablet, sublingual 1 tablet sublingual TID Qty: 90 2RF Follow-up/Referrals: Quincy Obregon MD [Primary Care Provider, Internal Medicine]
[2025-07-13 10:18] LABS: EDCOVIDSCREEN Negative (Negative); EDINFLUASCREEN Negative (Negative); EDINFLUBSCREEN Negative (Negative)
[2025-07-13 10:31] LABS: EDCOVIDSCREEN Negative (Negative); EDINFLUASCREEN Negative (Negative); EDINFLUBSCREEN Negative (Negative)
== END 2025-07-13 10:15 | disposition home or self-care (01) ==
PROVIDERS: Emergency Provider Nurse Practitioner; PCP Emergency Medicine
DX: B34.9 Viral infection, unspecified (principal); M79.7 Fibromyalgia; Z98.84 Bariatric surgery status
CPT/HCPCS: 71046; 87426; 87804; 99213; G0463